=== PATIENT | female | born 1950 | race Caucasian/White ===

== ENCOUNTER 2022-05-22 16:30 | Emergency (ER) | payer OTHER, MEDICARE, SELFPAY ==
[2022-05-22 16:31] VITALS: BP 156/96; PULSE 86; RESP 16; TEMP 36.7; O2SAT 98; BMI 42.3
[2022-05-22 17:12] VITALS: BP 166/95; PULSE 82; RESP 18; O2SAT 100
--- NOTE | 2022-05-22 17:21 | CT_ITS ---
INDICATION: fall EXAMINATION: CT BRAIN - CT Head or Brain W/O Contrast Injection TECHNIQUE: Multiple axial images were obtained of the head without intravenous contrast. A radiation dose optimization technique was used for this scan. IV Contrast dosage and agent: None. RADIATION DOSAGE (If Supplied By Facility): CTDIvol = ( 44.99 ) mGy, DLP = ( 779.24 ) mGycm COMPARISON: None FINDINGS: HEMISPHERES: 1. The cerebral parenchyma, ventricular system, subarachnoid spaces have normal configuration and density. There is a normal gyral pattern. There is normal benítez/white differentiation. No midline shift.. 2. The hemispheric white matter has normal appearance. 3. No intraparenchymal mass, hemorrhage, or acute territorial infarct. CEREBELLUM - BRAINSTEM: The cerebellum, brainstem, basilar and suprasellar cisterns have normal appearance. No Chiari malformation. PITUITARY: Infundibulum and pituitary have normal configuration. Midline structures appear normal. CSF SPACES: Appropriate for age. No hydrocephalus. Basal cisterns are patent. VESSELS: 1. No significant vascular calcifications in the cavernous carotid vessels. 2. No hyperdense vascular signs noted.. ORBITS AND PARANASAL SINUSES: 1. Normal appearance of the bony orbits. Normal appearance of the globes and retrobulbar soft tissues.. 2. Paranasal sinuses are clear. BONY ELEMENTS: Bony elements of the cranial vault, facial skeleton and skull base have normal appearance. SCALP AND SOFT TISSUES: RIGHT posterior parietal scalp contusion. No underlying fracture. OTHER: None ASPECTS Score for Acute Strokes: 10 CT/Brain/Head without Contrast IMPRESSION: 1. No intracranial mass, hemorrhage or acute territorial infarct. 2. RIGHT posterior parietal scalp contusion, no underlying fracture or radiopaque foreign bodies. 3. No radiographically significant sinus disease.. Electronically Signed: Castillo Warner MD at 18:32 EDT ,
--- NOTE | 2022-05-22 17:21 | EKG12_ITS ---
Test Reason : Blood Pressure : / mmHG Vent. Rate : 075 BPM Atrial Rate : 075 BPM P-R Int : 182 ms QRS Dur : 086 ms QT Int : 376 ms P-R-T Axes : 024 000 005 degrees QTc Int : 419 ms Normal sinus rhythm Normal ECG Confirmed by RUPAL BRISENO, EBER ([id number]), digital editor REY CRAWLEY ([id number]) on 05/23/2022 1:27:06 PM Referred By: Confirmed By:EBER GOLDSMITH MD
[2022-05-22 17:34] LABS: Absolute Lymphocyte Count 1.68 X10^3/uL (0.83-4.51); Absolute Neutrophil Count 6.5 X10^3/uL (2.0-7.7); Basophil# 0.07 X10^3/uL; Basophil% 0.8 % (0-1); Eosinophils% 1.1 % (0-5); Hematocrit 40.6 % (37-47); Hemoglobin 12.7 g/dL (12.0-15.0); Lymphocyte # 1.68 X10^3/ul (0.83-4.51); Lymphocyte % 18.3 % (19-41); Mean Corp Hgb Conc 31.3 g/dL (32-36); Mean Corpuscular Hgb 29.1 pg (27.0-32.0); Mean Corpuscular Volume 92.9 fL (81-99); Mean Platelet Vol. 10.6 fl (6.2-12.0); Monocyte# 0.86 X10^3/uL; Monocyte% 9.4 % (0-10); NRBC Flagged by Analyzer 0 % (0-5); Neutrophil # 6.45 X10^3/uL (2.7-7.7); Neutrophil % 70.1 % (47-70); Platelet Count 296 K/mm3 (150-450); RBC Distribution Width CV 13.5 % (11.6-14.6); RBC Distribution Width SD 46.8 fl (35.1-43.9); Red Blood Count 4.37 M/mm3 (4.2-5.4); White Blood Count 9.2 K/mm3 (4.4-11.0)
[2022-05-22 17:35] VITALS: BP 149/79; BP 160/104; BP 174/98; PULSE 77; PULSE 80; PULSE 85
[2022-05-22 17:42] LABS: D-Dimer Quantitative (DVT/PE) 0.49 FEU/ug/m (0.27-0.49)
--- NOTE | 2022-05-22 17:44 | EDS_ITS ---
HPI History of Present Illness Chief Complaint: General Illness Informant: patient Narrative Narrative: Patient is a 71-year-old female with history of BPPV as well as COVID infection in the beginning of April presenting with intermittent falls, intermittent vertig o and request for evaluation. Patient notes that last week she returned her head in her pillow when sleeping and had some spinning. She fell asleep and then when she got up to go to the restroom in the middle the night she had vertigo which she describes as mild. Since then she has had a couple of intermittent episodes of room spinning sensation that always correlate with change in position. She notes that over the weekend she tripped while at [employer] and fell. She not hit her head. This morning she was try to pick something off the ground and when she tried to get up she lost her balance and fell backwards. Denies any loss of conscious but does think she hit her head. She denies any chest pain, shortness of breath or difficulty breathing. She notes her exercise tolerance and activity level has not returned to her pre-COVID state. She spoke with her primary care doctor who wanted her to come in to be evaluated and also make sure that she did not have a blood clot somewhere given her symptoms. Patient not taking anything for her vertigo and currently denies any symptoms. No other complaints at this time. Denies any history of DVT or PE. Denies any swelling of her legs. [facility] Medical History Cholecystectomy planned Vertigo Home Medications loratadine 10 mg DAILY 05/22/22 [History Last Taken Unknown] losartan 50 mg tablet 1 tab BID 05/22/22 [History Last Taken Unknown] meclizine 25 mg tablet 25 mg PO TID PRN dizziness #14 tabs 05/22/22 [Rx Last Taken Unknown] meloxicam 15 mg tablet 1 tab DAILY 05/22/22 [History Last Taken Unknown] omeprazole 40 mg capsule,delayed release 1 cap DAILY 05/22/22 [History Last Taken Unknown] Allergy/AdvReac Type Severity Reaction Status Date / Time adhesive tape Allergy Rash Verified 05/22/22 16:57 Surgical History History of hysterectomy Social History Smoking Status: Never smoker ROS ROS ED Constitutional Constitutional ED: Denies chills, fever(s) or sweats Eyes Eyes: Denies change in vision ENT ENT ED: Denies rhinorrhea Cardiovascular Cardiovascular: Denies chest pain or palpitations Respiratory/Chest Respiratory/Chest: Denies cough or dyspnea Gastrointestinal Gastrointestinal: Reports nausea; Denies abdominal pain or vomiting Genitourinary Genitourinary ED: Denies dysuria or hematuria Musculoskeletal Musculoskeletal: Denies arthralgias or myalgias Integumentary Denies rash Neurologic Neurologic: Reports other Details: dizziness, vertigo ; Denies headache(s), paresthesias or weakness Psychiatric Psychiatric: Denies anxiety EXAM Physical Exam Const Vital Signs: 05/22/22 16:31 05/22/22 16:52 05/22/22 17:12 Temperature 98.1 F Temperature Source Temporal Pulse Rate 86 82 Pulse Rate [Lying] Pulse Rate [Sitting (for 1 minute prior to obtaining)] Pulse Rate [Standing (for 1 minute prior to obtaining)] Respiratory Rate 16 18 Respiratory Effort Normal Non-Labored Respiratory Pattern Normal Blood Pressure 156/96 H 166/95 H Blood Pressure [Lying] Blood Pressure [Sitting (for 1 minute prior to obtaining)] Blood Pressure [Standing (for 1 minute prior to obtaining)] Blood Pressure Mean 116 118 Blood Pressure Mean [Lying] Blood Pressure Mean [Sitting (for 1 minute prior to obtaining)] Blood Pressure Mean [Standing (for 1 minute prior to obtaining)] Pulse Ox 98 100 Oxygen Delivery Method Room Air Room Air 05/22/22 17:35 05/22/22 19:21 Temperature Temperature Source Pulse Rate 77 Pulse Rate [Lying] 77 Pulse Rate [Sitting (for 1 minute prior to obtaining)] 80 Pulse Rate [Standing (for 1 minute prior to obtaining)] 85 Respiratory Rate 21 H Respiratory Effort Respiratory Pattern Blood Pressure 130/95 H Blood Pressure [Lying] 149/79 H Blood Pressure [Sitting (for 1 minute prior to obtaining)] 160/104 H Blood Pressure [Standing (for 1 minute prior to obtaining)] 174/98 H Blood Pressure Mean 106 Blood Pressure Mean [Lying] 102 Blood Pressure Mean [Sitting (for 1 minute prior to obtaining)] 122 Blood Pressure Mean [Standing (for 1 minute prior to obtaining)] 123 Pulse Ox 97 Oxygen Delivery Method Room Air Positive well nourished and well developed General Appearance ED: well developed and NAD HEENT Reports TM's clear and moist mucous membranes HEENT Narrative: No obvious cephalhematoma appreciated Negative for trauma or tenderness Tympanic Membrane ED: Yes TM's clear Eyes PERRL and EOMs intact bilaterally Eyes Narrative: No nystagmus. Negative Funmi-Hallpike maneuver bilateral Neck supple and no JVD Chest Wall inspection of chest normal Resp normal respiratory effort and clear to auscultation bilaterally Cardio regular rate, regular rhythm and no murmurs GI normal to inspection, nondistended, normoactive bowel sounds and non-tender Back/Spine no CVA tenderness Extremity normal to inspection General Extremety ED: Negative for edema or tenderness General Extremity: Negative for edema Neuro oriented x3, CN's II-XII intact bilaterally and no sensory deficits noted Neuro Narrative: Normal atildu-hr-xlds. Normal lwwj-[id number]. No truncal ataxia. Sensorium / Orientation: alert Motor Exam: strength 5/5 throughout Psych mental status grossly normal Skin no rashes or lesions noted and no wounds MDM MDM MDM Narrative Medical decision making narrative: Patient is evaluated for intermittent episodes of dizziness. Does have a history of peripheral vertigo. Had a fall today and did hit her head. It seems to be associated with losing her balance however CT of the brain is obtained which did show a small right posterior parietal scalp contusion but no associated fracture or intracranial process. I am not able to reproduce his symptoms in the ER. Orthostatics are normal. D-dimer is normal and patient is otherwise low risk for PE so I do not think a CT is indicated. High since he troponin is 10 and patient not having any chest pain. Her EKG is normal. I do not think this is ACS. Patient is given outpatient referral for ENT as well as meclizine to help with her symptoms. Given instructions on the Perico maneuver which she has done in the past. Counseled on return precautions. Patient discharged home in stable condition. Agreeable with this plan of care. Ambulates with a steady gait in the emergency room. Lab Data Attestation: I reviewed the patient's lab results. Labs: Laboratory Results - last 24 hr 05/22/22 05/22/22 05/22/22 17:15 17:15 17:15 WBC 9.2 RBC 4.37 Hgb 12.7 Hct 40.6 MCV 92.9 MCH 29.1 MCHC 31.3 L RDW Std Deviation 46.8 H RDW Coeff of Annmarie 13.5 Plt Count 296 MPV 10.6 Immature Gran % (Auto) 0.300 Neut % (Auto) 70.1 H Lymph % (Auto) 18.3 L [place] % (Auto) 9.4 Eos % (Auto) 1.1 Baso % (Auto) 0.8 Absolute Neuts (auto) 6.5 Absolute Lymphs (auto) 1.68 Nucleated RBC % 0 D-Dimer Quant (PE/DVT) 0.49 Sodium 140 Potassium 3.9 Chloride 108 H Carbon Dioxide 27.0 Anion Gap 5 BUN 16 Creatinine 0.69 Estim Creat Clear Calc 43.30 Est GFR (MDRD) Af Amer 108 Est GFR (MDRD) Non-Af 90 BUN/Creatinine Ratio 23.3 H Glucose 103 Calcium 9.1 Troponin I High Sens 10 Radiography Diagnostic Testing: Clinical Impression(s) from Imaging Studies Brain CT 05/22/22 17:21 IMPRESSION: 1. No intracranial mass, hemorrhage or acute territorial infarct. 2. RIGHT posterior parietal scalp contusion, no underlying fracture or radiopaque foreign bodies. 3. No radiographically significant sinus disease.. Electronically Signed: Castillo Warner MD at 18:32 EDT , Rhythm Strip Rhythm Strip: Sinus Rhythm Rate: 75 Ectopy: None EKG Initial EKG: Attestation: I personally reviewed and interpreted this EKG as follows: Interpretation: Sinus Rhythm Comments: Normal sinus rhythm at a rate of 75 Normal axis Normal intervals Normal ST segments Discharge Plan Triage Chief Complaint: General Illness ED Provider: Maura Hopson Dx/Rx/DC Orders Clinical Impression: Intermittent vertigo, Fall, Contusion of scalp Instructions: ED Head Injury (Adult), ED Vertigo, Unspecified Prescriptions: New meclizine 25 mg tablet 25 mg PO TID PRN (Reason: dizziness) Qty: 14 0RF No Action losartan 50 mg tablet 1 tab BID meloxicam 15 mg tablet 1 tab DAILY omeprazole 40 mg capsule,delayed release(DR/EC) 1 cap DAILY loratadine 10 mg DAILY Primary Care Provider: Michelle Blanco Referrals: Michelle Blanco MD [Primary Care Provider] - Cholo Perez MD [Med Staff - Active Staff] - 3-5 Days if not improving Disposition Disposition: Home, Self Care
[2022-05-22 18:38] LABS: Anion Gap 5 (5-15); BUN 16 mg/dL (7-18); BUN/Creat Ratio 23.3 RATIO (10-20); Calcium,Total 9.1 mg/dL (8.5-10.1); Chloride 108 mmol/L (98-107); Creatinine, Serum 0.69 mg/dL (0.55-1.02); EST Glomerular Filtration Rate 90 mL/min (>60); Est Glom Filt Rate - Afr Amer 108 mL/min (>60); Glucose 103 mg/dL (74-106); Potassium 3.9 mmol/L (3.5-5.1); Sodium Level 140 mmol/L (136-145); Troponin-I HS 10 pg/mL (3.0-54.0)
[2022-05-22 19:21] VITALS: BP 130/95; PULSE 77; RESP 21; O2SAT 97
[2022-05-22 19:46] VITALS: BP 130/95; PULSE 78; RESP 18; O2SAT 97
== END 2022-05-22 19:47 | disposition home or self-care (01) ==
PROVIDERS: Emergency Provider Emergency Medicine; PCP Internal Medicine; Visit Provider Emergency Medicine
DX: S00.03XA Contusion of scalp, initial encounter (principal); W01.0XXA Fall on same level from slipping, tripping and stumbling without subsequent striking against object, initial encounter; H81.10 Benign paroxysmal vertigo, unspecified ear; Z86.16 Personal history of COVID-19; R29.6 Repeated falls
CPT/HCPCS: 70450; 80048; 84484; 85025; 85379; 93005; 99284; A4216

== ENCOUNTER 2023-10-28 00:39 | Emergency (ER) | payer MEDICARE, SELFPAY ==
[2023-10-28 00:39] VITALS: BP 170/109; PULSE 84; RESP 16; TEMP 36.6; O2SAT 97; BMI 44.4
--- NOTE | 2023-10-28 01:00 | RAD_ITS ---
EXAM: XR RIGHT SHOULDER COMPLETE, 2 OR MORE VIEWS CLINICAL INDICATION: trauma TECHNIQUE: Two or more views of the right shoulder. COMPARISON: No relevant prior studies available. FINDINGS: BONES/JOINTS: Probable impacted fracture of the humeral head/neck, with extension through the greater tuberosity. Preservation of the joint space. No sclerotic or destructive changes observed. SOFT TISSUES: Unremarkable. No soft tissue swelling or gas. No radiopaque foreign body. RAD/Shoulder min 2 Views IMPRESSION: Probable impacted fracture of the humeral head/neck, with extension through the greater tuberosity. Electronically Signed: Merrill Rinaldi MD at 1:53 EST ,
--- OUTSIDE RECORDS SUMMARY | 2023-10-28 01:21 | XMS RPT_ITS | CCD ---
Author Name Unknown Address [address] [place] [address] Organization [facility] Care Team Providers Care Cash Posting Representative Name Role Phone MINH QUEEN Admitting Unavailable MINH QUEEN Attending Unavailable Francis BRISENO, Michelle Primary Care Provider Francis BRISENO, Michelle Primary Care Provider Michelle Garcia MD Primary Care Provider Francis BRISENO, Michelle Primary Care Provider SAMUELTA, MICHELLE Primary Care Unavailable OLDER, JOSSELIN Referring Unavailable GANTA, MICHELLE Primary Care Unavailable OLDER, JOSSELIN Referring Unavailable GANTA, MICHELLE Primary Care Unavailable GANTA, MICHELLE Referring Unavailable OLDER, JOSSELIN Referring Unavailable GANTA, MICHELLE Primary Care Unavailable GANTA, MICHELLE Primary Care Unavailable GOLIAS, GUNAAKITO Attending Unavailable OLDER, JOSSELIN Referring Unavailable GANTA, MICHELLE Primary Care Unavailable GOLIAS, GUANAKITO Attending Unavailable OLDER, JOSSELIN Referring Unavailable GANTA, MICHELLE Primary Care Unavailable OLDER, JOSSELIN Referring Unavailable GANTA, MICHELLE Primary Care Unavailable GOLIAS, GUANAKITO Attending Unavailable OLDER, JOSSELIN Referring Unavailable GANTA, MICHELLE Primary Care Unavailable OLDER, JOSSELIN Referring Unavailable GANTA, IMCHELLE Primary Care Unavailable GOLIAS, GUANAKITO Attending Unavailable OLDER, JOSSELIN Referring Unavailable GANTA, MICHELLE Primary Care Unavailable GOLIAS, GUANAKITO Attending Unavailable OLDER, JOSSELIN Referring Unavailable GOLIAS, GUANAKITO Attending Unavailable OLDER, JOSSELIN Referring Unavailable GANTA, MICHELLE Primary Care Unavailable GANTA, MICHELLE Primary Care Unavailable GOLIAS, GUANAKITO Attending Unavailable OLDER, JOSSELIN Referring Unavailable GANTA, MICHELLE Referring Unavailable GANTA, MICHELLE Attending Unavailable GANTA, MICHELLE Primary Care Unavailable GANTA, MICHELLE Referring Unavailable GANTA, MICHELLE Primary Care Unavailable OLDER, JOSSELIN Attending Unavailable GANTA, MICHELLE Primary Care Unavailable GANTA, MICHELLE Primary Care Unavailable FELICIANO JOSSELIN Attending Unavailable MICHELLE GARCIA Primary Care Unavailable OLDERJOSSELIN Attending Unavailable Allergies Allergy Classification Reported Allergen(s) Allergy Type Date of Onset Reaction(s) Facility (20 sources) amLODIPine; Translations: [AMLODIPINE BESYLATE] Drug Allergy 6 Intolerance [facility] Repository (20 sources) Angiotensin Converting Enzyme (Ced) Inhibitors; Translations: [CED INHIBITORS] Propensity to adverse reactions to drug (disorder) 8 Cough [facility] Repository (20 sources) POISON NAINA; Translations: [POISON NAINA] Propensity to adverse reactions (disorder) 5 Other: See Comments [facility] Repository (20 sources) Cat; Translations: [CATS] Allergy to substance 0 Other: See Comments [facility] (20 sources) House dust mite; Translations: [DUST MITES] Propensity to adverse reactions 1 Other: See Comments [facility] (20 sources) Tree and shrub pollen; Translations: [TREE AND SHRUB POLLEN] Propensity to adverse reactions to drug 1 Itching [facility] Medications Current Medications Medication Drug Class(es) Dates Sig (Normalized) Sig (Original) nirmatrelvir tablet 300 mg (150 mg x 2) and ritonavir tablet 100 mg in a dose pack (PAXLOVID) (1 source) Start: 05-16-2023 End: 05-21-2023 nirmatrelvir tablet 300 mg (150 mg x 2) and ritonavir tablet 100 mg in a dose pack (PAXLOVID) Administer TWO pink nirmatrelvir 150 mg tablets and ONE white ritonavir 100 mg tablet for a total of three tablets twice daily. 30 tablet 0 05/16/2023 05/21/2023 Active Completed/Discontinued Medications Medication Drug Class(es) Dates Sig (Normalized) Sig (Original) 8 hr acetaminophen 650 mg extended release oral tablet (10 sources) Start: 05-16-2023 take 1 tablet by mouth every eight hours as needed acetaminophen (TYLENOL ARTHRITIS PAIN) 650 mg CR tablet Take 1 tablet by mouth every 8 hours as needed. 0 05/16/2023 Active Problems Active Problems Problem Classification Problem Date Documented Date Episodic/Chronic Abdominal pain (2 sources) Pain in female pelvis; Translations: [Pelvic and perineal pain] Episodic Cataract (1 source) Bilateral senile combined form cataracts of eyes; Translations: [Combined forms of age-related cataract, bilateral] Chronic Disorders of lipid metabolism (5 sources) Hypertriglyceridemia; Translations: [Pure hyperglyceridemia] Onset: 06-26-2023 Chronic Esophageal disorders (20 sources) Gastroesophageal reflux disease without esophagitis; Translations: [Gastro-esophageal reflux disease without esophagitis] 03-10-2019 Chronic Essential hypertension (20 sources) Essential hypertension; Translations: [Essential (primary) hypertension] Onset: 09-01-2015 09-01-2015 Chronic Genitourinary symptoms and ill-defined conditions (2 sources) Urge incontinence of urine; Translations: [Urge incontinence] Chronic Genitourinary symptoms and ill-defined conditions (1 source) Urgent desire to urinate; Translations: [Urgency of urination] Episodic Headache; including migraine (1 source) Headache; Translations: [Headache, unspecified headache type] Episodic Menopausal disorders (3 sources) Atrophy of vagina; Translations: [Postmenopausal atrophic vaginitis] Chronic Nutritional deficiencies (2 sources) Vitamin D deficiency; Translations: [Vitamin D deficiency, unspecified] Onset: 12-06-2022 Chronic Osteoarthritis (20 sources) Localized, primary osteoarthritis; Translations: [Unilateral primary osteoarthritis, unspecified knee] Onset: 07-10-2009 07-10-2009 Chronic Osteoporosis (2 sources) Senile osteoporosis; Translations: [Age-related osteoporosis without current pathological fracture] Onset: 12-12-2022 Chronic Other and unspecified benign neoplasm (1 source) Personal history of colonic polyps; Translations: [Personal history of colonic polyps] Onset: 02-16-2019 Episodic Other bone disease and musculoskeletal deformities (20 sources) Disorder of skeletal system; Translations: [Disorder of bone, unspecified] 06-02-2008 Episodic Other bone disease and musculoskeletal deformities (1 source) Osteopenia; Translations: [Other specified disorders of bone density and structure, unspecified site] Episodic Other female genital disorders (4 sources) Atrophic vulva; Translations: [Atrophy of vulva] Episodic Other inflammatory condition of skin (2 sources) Lichen planus; Translations: [Lichen planus, unspecified] 04-28-2023 Episodic Other nervous system disorders (1 source) Other chronic pain; Translations: [Chronic pain of both knees] Onset: 06-26-2023 Chronic Other nervous system disorders (14 sources) Impairment of balance; Translations: [Other abnormalities of gait and mobility] Onset: 07-15-2023 06-26-2023 Episodic Other nutritional; endocrine; and metabolic disorders (20 sources) Body mass index 40+ - severely obese; Translations: [Body mass index (BMI) 40.0-44.9, adult] Onset: 08-02-2013 08-02-2013 Chronic Other nutritional; endocrine; and metabolic disorders (1 source) Body mass index (BMI) 40.0-44.9, adult; Translations: [BMI 40.0-44.9, adult ([facility])] Onset: 08-02-2013 Chronic Other skin disorders (1 source) Epidermoid cyst; Translations: [Epidermal cyst] Episodic Other upper respiratory disease (20 sources) Allergic rhinitis; Translations: [Allergic rhinitis, unspecified] 09-24-2006 Chronic Prolapse of female genital organs (1 source) Midline cystocele; Translations: [Cystocele, midline] Chronic Viral infection (1 source) Disease caused by 2019-nCoV; Translations: [COVID-19] 05-16-2023 Episodic Viral infection (1 source) COVID-19; Translations: [COVID] Onset: 05-16-2023 Past or Other Problems Problem Classification Problem Date Documented Date Episodic/Chronic Abdominal hernia (20 sources) Hiatal hernia; Translations: [Diaphragmatic hernia without obstruction or gangrene] Onset: 11-19-2019 11-19-2019 Episodic Blindness and vision defects (20 sources) Bilateral myopia of eyes; Translations: [Myopia, bilateral] Onset: 02-01-2019 02-01-2019 Episodic Deficiency and other anemia (20 sources) Iron deficiency anemia; Translations: [Iron deficiency anemia, unspecified] Onset: 09-15-2007 02-10-2019 Episodic Diabetes mellitus without complication (20 sources) Impaired glucose tolerance; Translations: [Impaired glucose tolerance (oral)] Onset: 08-06-2016 08-06-2016 Episodic Gastritis and duodenitis (20 sources) Acute gastritis; Translations: [Acute gastritis without bleeding] Onset: 10-12-2007 10-12-2007 Episodic Noninfectious gastroenteritis (20 sources) Chronic diarrhea; Translations: [Noninfective gastroenteritis and colitis, unspecified] Onset: 03-09-2013 07-02-2023 Episodic Other and unspecified benign neoplasm (20 sources) Tubular adenoma of colon; Translations: [Benign neoplasm of colon, unspecified] Onset: 01-13-2013 10-15-2021 Episodic Other bone disease and musculoskeletal deformities (1 source) Other specified disorders of bone density and structure, unspecified site; Translations: [Osteopenia, unspecified location] Onset: 12-06-2022 Episodic Other connective tissue disease (20 sources) Impingement syndrome of right shoulder region; Translations: [Impingement syndrome of right shoulder] Onset: 02-13-2018 02-13-2018 Episodic Other nervous system disorders (1 source) Other abnormalities of gait and mobility; Translations: [Balance problem] Onset: 06-26-2023 Episodic Other non-traumatic joint disorders (20 sources) Shoulder joint pain; Translations: [Pain in unspecified shoulder] Onset: 12-23-2013 12-23-2013 Episodic Other non-traumatic joint disorders (15 sources) Pain in right knee; Translations: [Pain in joint, lower leg] Onset: 06-26-2023 07-02-2023 Episodic Other non-traumatic joint disorders (1 source) Pain in left knee; Translations: [Chronic pain of both knees] Onset: 06-26-2023 Episodic Other screening for suspected conditions (not mental disorders or infectious disease) (6 sources) Patient encounter status; Translations: [Encounter for screening mammogram for malignant neoplasm of breast] Onset: 12-06-2022 Episodic Residual codes; unclassified (20 sources) Insomnia; Translations: [Insomnia, unspecified] Onset: 11-19-2019 11-19-2019 Episodic Screening and history of mental health and substance abuse codes (1 source) Encounter for screening for depression; Translations: [Depression screening] Onset: 12-12-2022 Episodic Results Test Name Value Interpretation Reference Range Facil ity Vital Signs Date Time Vital Sign Value Performing Clinician Fred orourke 09-25-2023 13:42-0500 Diastolic blood pressure 79 mm[Hg] Josselin Stevens APRN.CNP Work Phone: [facility] 09-25-2023 13:42-0500 Systolic blood pressure 116 mm[Hg] Josselin Stevens APRN.CNP Work Phone: [facility] 09-25-2023 13:09-0500 Body weight 107.96 kg Josselin Older HYDROELECTRIC MECHANIC.SURGICAL ELASTIC KNITTER Work Phone: [facility] 09-25-2023 13:09-0500 Heart rate 102 /min Josselin Older HYDROELECTRIC MECHANIC.SURGICAL ELASTIC KNITTER Work Phone: [facility] 09-25-2023 13:09-0500 Respiratory rate 16 /min Josselin Older HYDROELECTRIC MECHANIC.SURGICAL ELASTIC KNITTER Work Phone: [facility] 09-25-2023 13:09-0500 SaO2% (BldA) [Mass fraction] 97 % Josselin Older HYDROELECTRIC MECHANIC.SURGICAL ELASTIC KNITTER Work Phone: [facility] 06-26-2023 11:33-0400 Diastolic blood pressure 81 mm[Hg] Josselin Older HYDROELECTRIC MECHANIC.SURGICAL ELASTIC KNITTER Work Phone: [facility] 06-26-2023 11:33-0400 Systolic blood pressure 123 mm[Hg] Josselin Older HYDROELECTRIC MECHANIC.SURGICAL ELASTIC KNITTER Work Phone: [facility] 06-26-2023 10:46-0400 Body weight 106.14 kg Josselin Older HYDROELECTRIC MECHANIC.SURGICAL ELASTIC KNITTER Work Phone: [facility] 06-26-2023 10:46-0400 Heart rate 102 /min Josselin Older HYDROELECTRIC MECHANIC.SURGICAL ELASTIC KNITTER Work Phone: [facility] 06-26-2023 10:46-0400 Respiratory rate 16 /min Josselin Older HYDROELECTRIC MECHANIC.SURGICAL ELASTIC KNITTER Work Phone: [facility] 06-26-2023 10:46-0400 SaO2% (BldA) [Mass fraction] 97 % Josselin Older HYDROELECTRIC MECHANIC.SURGICAL ELASTIC KNITTER Work Phone: [facility] 12-12-2022 11:49-0500 Diastolic blood pressure 87 mm[Hg] Michelle Garcia MD Work Phone: [facility] 12-12-2022 11:49-0500 Heart rate 80 /min Michelle Garcia MD Work Phone: [facility] 12-12-2022 11:49-0500 Systolic blood pressure 127 mm[Hg] Michelle Garcia MD Work Phone: [facility] 12-12-2022 11:24-0500 Body weight 106.14 kg Michelle Garcia MD Work Phone: [facility] 12-12-2022 11:24-0500 Respiratory rate 16 /min Michelle Garcia MD Work Phone: [facility] 12-12-2022 11:24-0500 SaO2% (BldA) [Mass fraction] 98 % Michelle Garcia MD Work Phone: [facility] 07-23-2022 11:28-0400 Diastolic blood pressure 76 mm[Hg] Michelle Garcia MD Work Phone: [facility] 07-23-2022 11:28-0400 Systolic blood pressure 126 mm[Hg] Michelle Garcia MD Work Phone: [facility] 07-23-2022 10:40-0400 Body height 160 cm Michelle Garcia MD Work Phone: [facility] 07-23-2022 10:40-0400 Body temperature 97.5 [degF] Michelle Garcia MD Work Phone: [facility] 07-23-2022 10:40-0400 Body weight 103.87 kg Michelle Garcia MD Work Phone: [facility] 07-23-2022 10:40-0400 Heart rate 95 /min Michelle Garcia MD Work Phone: [facility] 07-23-2022 10:40-0400 Respiratory rate 18 /min Michelle Garcia MD Work Phone: [facility] 07-23-2022 10:40-0400 SaO2% (BldA) [Mass fraction] 99 % Michelle Garcia MD Work Phone: [facility] 04-10-2022 16:09-0400 Body height 160 cm Michelle Garcia MD Work Phone: [facility] 04-10-2022 16:09-0400 Body temperature 97.2 [degF] Michelle Garcia MD Work Phone: [facility] 04-10-2022 16:09-0400 Body weight 107.5 kg Michelle Garcia MD Work Phone: [facility] 04-10-2022 16:09-0400 Diastolic blood pressure 72 mm[Hg] Michelle Garcia MD Work Phone: [facility] 04-10-2022 16:09-0400 Heart rate 89 /min Michelle Garcia MD Work Phone: [facility] 04-10-2022 16:09-0400 Respiratory rate 14 /min Michelle Garcia MD Work Phone: [facility] 04-10-2022 16:09-0400 SaO2% (BldA) [Mass fraction] 97 % Michelle Garcia MD Work Phone: [facility] 04-10-2022 16:09-0400 Systolic blood pressure 136 mm[Hg] Michelle Garcia MD Work Phone: [facility] 03-30-2022 11:50-0400 Body temperature 98.6 [degF] Martina Tannhof HYDROELECTRIC MECHANIC.SURGICAL ELASTIC KNITTER Work Phone: [facility] 03-30-2022 11:50-0400 Body weight 108.86 kg Martina Nichohof HYDROELECTRIC MECHANIC.SURGICAL ELASTIC KNITTER Work Phone: [facility] 03-30-2022 11:50-0400 Diastolic blood pressure 90 mm[Hg] Martina Tannhof HYDROELECTRIC MECHANIC.SURGICAL ELASTIC KNITTER Work Phone: [facility] 03-30-2022 11:50-0400 Heart rate 83 /min Martina Tannhof HYDROELECTRIC MECHANIC.SURGICAL ELASTIC KNITTER Work Phone: [facility] 03-30-2022 11:50-0400 SaO2% (BldA) [Mass fraction] 98 % Martina Tannhof HYDROELECTRIC MECHANIC.SURGICAL ELASTIC KNITTER Work Phone: [facility] 03-30-2022 11:50-0400 Systolic blood pressure 168 mm[Hg] Martina Tannhof HYDROELECTRIC MECHANIC.SURGICAL ELASTIC KNITTER Work Phone: [facility] 02-08-2022 13:46-0400 Body weight 109.32 kg Mira Joseph MD Work Phone: [facility] 02-08-2022 13:46-0400 Diastolic blood pressure 90 mm[Hg] Mira Joseph MD Work Phone: [facility] 02-08-2022 13:46-0400 Systolic blood pressure 138 mm[Hg] Mira Joseph MD Work Phone: [facility] 01-21-2022 11:09-0400 Body weight 108.5 kg Mira Joseph MD Work Phone: [facility] 01-21-2022 11:09-0400 Diastolic blood pressure 90 mm[Hg] Mira Joseph MD Work Phone: [facility] 01-21-2022 11:09-0400 Systolic blood pressure 120 mm[Hg] Mira Joseph MD Work Phone: [facility] Encounters Encounter Date Encounter Type Care Provider Facility Start: 09-25-2023 End: 09-25-2023 ambulatory JOSSELIN OLDER Facility:[facility] Start: 09-25-2023 End: 09-25-2023 Patient encounter procedure Josselin Stevens APRN.CNP Work Phone: [facility] [place] Procedures Date Procedure Procedure Detail Performing Clinician Start: 06-24-2023 Lipid 1996 panel - S yesica or Plasma Josselin Stevens HYDROELECTRIC MECHANIC.SURGICAL ELASTIC KNITTER Work Phone: Start: 04-14-2023 Mammography Mammograph y Coordinator Start: 02-21-2022 Colonoscopy Mira marquez MD Work Phone: Start: 02-08-2022 Us transvaginal Mira otto MD Work Phone: Start: 01-21-2022 Urnls dip stick/tabl et reagent auto microscopy Mira Joseph MD Work Phone: Start: 03-01-2021 Adult depression scr eening assessment Michelle Garcia MD Work Phone: Start: 02-19-2021 Mammography Michelle nicole MD Work Phone: Start: 12-31-2012 Colonoscopy Michelle niocle MD Work Phone: Plan of Treatment Date Care Activity Detail Author Start: 02-22-2032 Colonoscopy COLONOSCOPY [facility] Start: 02-22-2032 COLORECTAL CANCER SCREENING COLORECTAL CANCER SCREENING [facility] Start: 06-24-2028 Lipid 1996 panel - Serum or Plasma Lipid Screening [facility] Start: 12-06-2027 LIPID SCREEN LIPID SCREEN [facility] Start: 06-24-2026 Diabetes Screening Diabetes Screening [facility] Start: 03-01-2026 LIPID SCREEN LIPID SCREEN [facility] Start: 12-06-2025 DIABETES SCREEN DIABETES SCREEN [facility] Start: 01-14-2025 DIABETES SCREEN DIABETES SCREEN [facility] Start: 09-26-2024 Urine microalbumin profile [facility] Start: 09-25-2024 Annual PCP Team Chronic Disease Visit Annual PCP Team Chronic Disease Visit [facility] Start: 09-25-2024 BP Controlled (<130/80) BP Controlled (<130/80) [facility] Start: 06-26-2024 Annual PCP Team Chronic Disease Visit Annual PCP Team Chronic Disease Visit [facility] Start: 05-16-2024 ANNUAL PCP TEAM CHRONIC DISEASE VISIT ANNUAL PCP TEAM CHRONIC DISEASE VISIT [facility] Start: 04-14-2024 Mammography [facility] Start: 03-20-2024 End: 06-19-2024 CBC panel - Blood by Automated count CBC Lab Routine Essential hypertension Expected: 03/20/2024 (Approximate), Expires: 06/19/2024 [facility] Work Phone: Immunizations Immunization Date Immunization Notes Care Provider Rosas garay 09-16-2022 influenza, high dose seasonal, preservative-free Josselin Stevens HYDROELECTRIC MECHANIC.SURGICAL ELASTIC KNITTER Work Phone: [facility] 09-16-2022 influenza virus vacc ine, unspecified formulation Josselin Stevens HYDROELECTRIC MECHANIC.SURGICAL ELASTIC KNITTER Work Phone: [facility] 03-14-2022 COVID-19 original vaccine, full dose, monovalent (MODERNA) Michelle Garcia MD Work Phone: [facility] 03-12-2022 COVID-19 vaccine, ag e 12+ yr ([employer] - BE[employer]VIDE[employer] TOP) Mira Joseph MD Work Phone: [facility] Work Phone: 09-07-2021 COVID-19 vaccine, fu ll dose (MODERNA) Martina Gonzales APRN.CNP Work Phone: [facility] 05-24-2021 zoster vaccine recombinant Michelle Garcia MD Work Phone: [facility] 03-09-2021 zoster vaccine recombinant Michelle Garcia MD Work Phone: [facility] 07-21-2018 influenza, high dose seasonal, preservative-free Michelle Garcia MD Work Phone: [facility] Work Phone: 01-16-2018 pneumococcal polysaccharide vaccine, 23 valent Michelle Garcia MD Work Phone: [facility] 07-14-2017 pneumococcal conjuga te vaccine, 13 valent Michelle Garcia MD Work Phone: [facility] 09-26-2014 tetanus toxoid, redu liam diphtheria toxoid, and acellular pertussis vaccine, adsorbed Michelle Garcia MD Work Phone: [facility] 12-16-2012 zoster vaccine, live Michelle Garcia MD Work Phone: [facility] Payers Date Payer Category Payer Medicare UHC MEDICARE UHC MEDICARE ADVANTAGE PPO [id number] 2020-Present [phone] [address] [address] [place] [address] PPO [id number] 2020 Medicare UHC MEDICARE UHC MEDICARE ADVANTAGE PPO [id number] 2020-Present [phone] [address] [address] [place] [address] PPO [id number] 2020 Medicare [id number] 2016 Unknown [id number] Social History Date Type Detail Facility Start: 07-23-2022 Tobacco smoking status NHIS Never smoked tobacco [facility] Start: 07-17-2021 End: 12-12-2022 Alcohol intake Current non-drinker of alcohol (finding) [facility] Start: 03-01-2021 End: 12-06-2022 History SDOH Alcohol Frequency 2 [facility] Start: 03-01-2021 End: 12-06-2022 History SDOH Alcohol Std Drinks 1 [facility] Start: 03-01-2021 End: 12-06-2022 History SDOH Social Connections Phone 5 [facility] Start: 03-01-2021 End: 12-06-2022 History SDOH Social Connections Get Together 3 [facility] Start: 11-16-2019 Education 19 [facility] Start: 1950 Sex Assigned At Not on file [facility] Start: 01-06-2022 End: 07-23-2022 Exposure to SARS-CoV-2 (event) Not sure [facility] Work Phone: Start: 04-10-2022 End: 12-06-2022 History SDOH Social Connections Get Together 4 [facility] Start: 1950 Sex Assigned At Female [facility] Start: 07-23-2022 Tobacco use and exposure Smokeless tobacco non-user [facility] Work Phone: Start: 12-06-2022 End: 05-16-2023 History of Social function [facility] Start: 12-06-2022 End: 05-16-2023 Social connection and isolation panel [facility] Do you belong to any clubs or organizations such as islam groups, unions, fraternal or athletic groups, or school groups? Yes [facility] Are you now , , , , never or living with a partner? [facility] How often to you hav e a drink containing alcohol? Monthly or less [facility] How many standard dr inks containing alcohol do you have on a typical day? 1 or 2 [facility] How often do you hav e 6 or more drinks on 1 occasion? Never [facility] How hard is it for y ou to pay for the very basics like food, housing, medical care, and heating Not hard at all [facility] Do you feel stress - tense, restless, nervous, or anxious, or unable to sleep at night because your mind is troubled all the time - these days [OSQ] Only a little [facility] (I/We) worried wheth er (my/our) food would run out before (I/we) got money to buy more. Never true [facility] In the past 12 month s, was there a time when you were not able to pay the mortgage or rent on time? No [facility] Start: 04-10-2022 Gender identity Identifies as female gender (finding) [facility] Start: 03-01-2021 Sexual orientation Heterosexual (finding) [facility] Clinical Notes 03-09-2013 to 09-25-2023 Josselin Stevens APRN.SURGICAL ELASTIC KNITTER - 09/25/2023 1:13 PM Guanakito Lopez, PT - 09/05/2023 4:24 PM Guanakito Lopez, PT - 09/02/2023 3:30 PM Guanakito Lopez, PT - 09/02/2023 2:50 PM ESTPatient Instructions Note Date & Type Note Facility 09-25-2023 Note HNO ID: [id number] Author: Josselin Stevens APRN.SURGICAL ELASTIC KNITTER Service: ? Author Type: Nurse Practitioner Type: Progress Notes Filed: 09/25/2023 3:37 PM Note Text: CC: Patient presents with: Recheck: 3 month follow up HPI Jessica Merrill is a 72 year old female who presents today for routine follow up. HTN and HLD: Ms. Merrill indicates that she is feeling well and denies any symptoms referable to elevated blood pressure. Specifically denies headache, chest pain, palpitations, dyspnea, and peripheral edema. Patient denies any side effects of her medication(s) and is compliant with their regimen. She does not check BP's generally. [facility] and does home therapy exercises. She watches her diet for sodium, low fat and low cholesterol most of the time. Has been gaining weight but this feels it is from building muscle with working out. Last 3 Encounter BP Readings: Date: BP: 09/25/2023 138/90 - 116/79 07/15/2023 130/91 06/26/2023 123/81[BP Cece[ REVIEW OF SYSTEMS See HPI PAST MEDICAL HISTORY Diagnosis Date Acute gastritis without mention of hemorrhage Allergic rhinitis, cause unspecified BMI 40.0-44.9, adult ([facility]) 08/02/2013 Cataract Corneal abrasion 20 y ago Depressive disorder, not elsewhere classified Diverticulosis of colon (without mention of hemorrhage) Elevated BP 08/04/15 Esophageal reflux Iron deficiency anemia, unspecified Ocular migraine Osteopenia PMH - PAST MEDICAL HISTORY OF schatski ring PAST SURGICAL HISTORY Procedure Laterality Date COLONOSCOPY FLX DX W/COLLJ SPEC WHEN PFRMD 10/12/07 DILATION AND CURETTAGE DXAND/THER NONOBSTETRIC 12/18/1985 Dilation AND curettage EGD TRANSORAL BIOPSY SINGLE/MULTIPLE 10/12/07 LAPAROSCOPY SURG CHOLECYSTECTOMY 03/30/2013 SUTURE QUADRICEPS/HAMSTRING RUPTURE PRIMARY 08/09/2010 REPAIR QUADRICEPS performed by EVELINA CARVER at OR TONSILLECTOMY AND ADENOIDECTOMY AGE 13/> T/A (over age 13 years) TOTAL ABDOMINAL HYSTERECT W/WO RMVL TUBE OVARY 10/20/2002 Hysterectomy, BTEO left ovaries ALLERGIES Ced Inhibitors, Cats, Norvasc [Amlodipine Besylate], Poison Naina, Dust Mites, and Tree And Shrub Pollen MEDICATIONS meloxicam (MOBIC) 15 mg tablet Take 1 tablet by mouth once daily. losartan (COZAAR) 50 mg tablet TAKE 1 TABLET BY MOUTH TWICE DAILY loperamide HCl (IMODIUM) 2 mg tab Take 1 tablet by mouth as needed. acetaminophen (TYLENOL ARTHRITIS PAIN) 650 mg CR tablet Take 1 tablet by mouth every 8 hours as needed. clobetasol (TEMOVATE) 0.05 % ointment Apply half of one [id number] to cover the affected area two days a week. omeprazole (PRILOSEC) 40 mg capsule TAKE 1 CAPSULE BY MOUTH ONCE DAILY estradiol (ESTRACE) 0.01 % (0.1 mg/gram) vaginal cream APPLY 1 GRAM OF CREAM TO LOWER VAGINA AND A PEA SIZED AMOUNT TO THE OPENING OF THE VAGINA 3 TIMES WEEKLY zolpidem (AMBIEN) 10 mg Use half to one tablet as needed. Ferrous Gluconate 225 mg (27 mg iron) tab Take 1 tablet by mouth once daily. MAGNESIUM ORAL Take by mouth. multivitamin with minerals (HAIR,SKIN AND NAILS ORAL) Take by mouth. calcium carbonate-vitamin D3 (OSCAL+D) 500 mg-10 mcg (400 unit) chewable tablet Take 1 tablet by mouth twice daily. Cholecalciferol, Vitamin D3, 50 mcg (2,000 unit) cap Take 1 capsule by mouth once daily. COMPOUNDED PRESCRIPTION Exercise 30 minutes daily 5 days weekly multivitamin tablet Take 1 tablet by mouth twice daily. loratadine(CLARITIN 10 MG TAB) Take one(1) tablet daily as needed for allergy symptoms. FAMILY HISTORY Problem Relation Age of Onset Heart Father thyroid cancer at age 39 other (Rheumatoid arthritis) Mother other (rheumatoid arthritis) Maternal Aunt other (rheumatoid arthritis) Maternal Aunt Social History Tobacco Use Smoking status: Never Smokeless tobacco: Never Vaping Use Vaping Use: Never used Substance Use Topics Alcohol use: No Drug use: No PHYSICAL EXAM BP 116/79 Pulse 102 Resp 16 Wt 108 kg (238 lb) SpO2 97% BMI 42.16 kg/m? General Appearance: well appearing, in no acute distress, alert Skin: Skin color, texture, turgor normal for age; Eyes: conjunctiva pink and moist, no icterus, sclera white, non-injected Lungs: Lungs clear to auscultation. No wheezing, rhonchi, rales. Heart: RRR without murmur, gallop, or rubs. No ectopy Health maintenance reviewed with patient: BP Controlled (<130/80) Never done RSV Vaccine(1 - 1-dose 60+ series) Never done Advance Directive Discussion due on 10/20/2022 Mammogram Screening due on 04/14/2024 Annual PCP Team Chronic Disease Visit due on 06/26/2024 DTaP,Tdap,Td Vaccine(2 - Td or Tdap) due on 09/26/2024 Diabetes Screening due on 06/24/2026 Lipid Screening due on 06/24/2028 Colorectal Cancer Screening due on 02/22/2032 Bone Density Screening Completed Influenza Vaccine Completed Depression Assessment Completed Hepatitis C Screening Completed Shingrix Vaccine Comple (more content not included)... [facility] 09-25-2023 History of Present illness Narrative CC: Patient presents with: Recheck: 3 month follow up HPI Jessica Merrill is a 72 year old female who presents today for routine follow up. HTN and HLD: Ms. Merrill indicates that she is feeling well and denies any symptoms referable to elevated blood pressure. Specifically denies headache, chest pain, palpitations, dyspnea, and peripheral edema. Patient denies any side effects of her medication(s) and is compliant with their regimen. She does not check BP's generally. [facility] and does home therapy exercises. She watches her diet for sodium, low fat and low cholesterol most of the time. Has been gaining weight but this feels it is from building muscle with working out. Last 3 Encounter BP Readings: Date: BP: 09/25/2023 138/90 - 116/79 07/15/2023 130/91 06/26/2023 123/81[BP Cece[ REVIEW OF SYSTEMS See HPI PAST MEDICAL HISTORY Diagnosis Date Acute gastritis without mention of hemorrhage Allergic rhinitis, cause unspecified BMI 40.0-44.9, adult ([facility]) 08/02/2013 Cataract Corneal abrasion 20 y ago Depressive disorder, not elsewhere classified Diverticulosis of colon (without mention of hemorrhage) Elevated BP 08/04/15 Esophageal reflux Iron deficiency anemia, unspecified Ocular migraine Osteopenia PMH - PAST MEDICAL HISTORY OF sch[place]ki ring PAST SURGICAL HISTORY Procedure Laterality Date COLONOSCOPY FLX DX W/COLLJ SPEC WHEN PFRMD 10/12/07 DILATION & CURETTAGE DX&/THER NONOBSTETRIC 12/18/1985 Dilation & curettage EGD TRANSORAL BIOPSY SINGLE/MULTIPLE 10/12/07 LAPAROSCOPY SURG CHOLECYSTECTOMY 03/30/2013 SUTURE QUADRICEPS/HAMSTRING RUPTURE PRIMARY 08/09/2010 REPAIR QUADRICEPS performed by EVELINA CARVER at OR TONSILLECTOMY & ADENOIDECTOMY AGE 13/> T/A (over age 13 years) TOTAL ABDOMINAL HYSTERECT W/WO RMVL TUBE OVARY 10/20/2002 Hysterectomy, BETO left ovaries ALLERGIES Ced Inhibitors, Cats, Norvasc [Amlodipine Besylate], Poison Naina, Dust Mites, and Tree And Shrub Pollen MEDICATIONS meloxicam (MOBIC) 15 mg tablet Take 1 tablet by mouth once daily. losartan (COZAAR) 50 mg tablet TAKE 1 TABLET BY MOUTH TWICE DAILY loperamide HCl (IMODIUM) 2 mg tab Take 1 tablet by mouth as needed. acetaminophen (TYLENOL ARTHRITIS PAIN) 650 mg CR tablet Take 1 tablet by mouth every 8 hours as needed. clobetasol (TEMOVATE) 0.05 % ointment Apply half of one [id number]-[id number] to cover the affected area two days a week. omeprazole (PRILOSEC) 40 mg capsule TAKE 1 CAPSULE BY MOUTH ONCE DAILY estradiol (ESTRACE) 0.01 % (0.1 mg/gram) vaginal cream APPLY 1 GRAM OF CREAM TO LOWER VAGINA AND A PEA SIZED AMOUNT TO THE OPENING OF THE VAGINA 3 TIMES WEEKLY zolpidem (AMBIEN) 10 mg Use half to one tablet as needed. Ferrous Gluconate 225 mg (27 mg iron) tab Take 1 tablet by mouth once daily. MAGNESIUM ORAL Take by mouth. multivitamin with minerals (HAIR,SKIN AND NAILS ORAL) Take by mouth. calcium carbonate-vitamin D3 (OSCAL+D) 500 mg-10 mcg (400 unit) chewable tablet Take 1 tablet by mouth twice daily. Cholecalciferol, Vitamin D3, 50 mcg (2,000 unit) cap Take 1 capsule by mouth once daily. COMPOUNDED PRESCRIPTION Exercise 30 minutes daily 5 days weekly multivitamin tablet Take 1 tablet by mouth twice daily. loratadine(CLARITIN 10 MG TAB) Take one(1) tablet daily as needed for allergy symptoms. FAMILY HISTORY Problem Relation Age of Onset Heart Father thyroid cancer at age 39 other (Rheumatoid arthritis) Mother other (rheumatoid arthritis) Maternal Aunt other (rheumatoid arthritis) Maternal Aunt Social History Tobacco Use Smoking status: Never Smokeless tobacco: Never Vaping Use Vaping Use: Never used Substance Use Topics Alcohol use: No Drug use: No PHYSICAL EXAM BP 116/79 Pulse 102 Resp 16 Wt 108 kg (238 lb) SpO2 97% BMI 42.16 kg/m General Appearance: well appearing, in no acute distress, alert Skin: Skin color, texture, turgor normal for age; Eyes: conjunctiva pink and moist, no icterus, sclera white, non-injected Lungs: Lungs clear to auscultation. No wheezing, rhonchi, rales. Heart: RRR without murmur, gallop, or rubs. No ectopy Health maintenance reviewed with patient: BP Controlled (<130/80) Never done RSV Vaccine(1 - 1-dose 60+ series) Never done Advance Directive Discussion due on 10/20/2022 Mammogram Screening due on 04/14/2024 Annual PCP Team Chronic Disease Visit due on 06/26/2024 DTaP,Tdap,Td Vaccine(2 - Td or Tdap) due on 09/26/2024 Diabetes Screening due on 06/24/2026 Lipid Screening due on 06/24/2028 Colorectal Cancer Screening due on 02/22/2032 Bone Density Screening Completed Influenza Vaccine Completed Depression Assessment Completed Hepatitis C Screening Completed Shingrix Vaccine Completed Covid-19 Vaccine Completed Pneumococcal Vaccine: 65+ Completed DATA REVIEWED: No new labs ASSESSMENT/PLAN: 1. Essential hypertension - ICD9: 401.9, ICD10: I10 (primary diagnosis) - Controlled - Continue current medications - Recommend home blood pressure monitoring, to bring results to next visit - Encouraged sodium restriction, DASH or Mediterranean diet - Recommend regular aerobic exercise - CBC - COMP METABOLIC PANEL 2. Hypertriglyceridemia - ICD9: 272.1, ICD10: E78.1 - Control undetermined, due for labs - Counseled on healthy diet and regular exercise - Discussed need for and benefit of weight loss. BMI 42.16 kg/(m^2) - COMP METABOLIC PANEL - LIPID PANEL BASIC Prescription instructions reviewed with patient as applicable. Potential red flag symptoms discussed with the patient. Reviewed appropriate action plan to take if red flag symptoms occur. Patient agreeable to treatment plan. Josselin Stevens APRN.CNP documented in this encounter [facility] 09-05-2023 Note HNO ID: [id number] Author: Guanakito Reyna PT Service: ? Author Type: Physical Therapist Type: Progress Notes Filed: 09/05/2023 4:26 PM Note Text: Episode Visit Count: 9 Therapist That Will Accept/Oversee The Plan Of Care: Guanakito Reyna PT Start of Care Date: 07/15/23 Onset Date: 03/24/23 Plan of Care Certification Date: 08/12/23 Next Certification Due Date: 09/09/23 Patient Identified by Name and Date of : Yes REHABILITATION AND SPORTS THERAPY PHYSICAL THERAPY DISCONTINUANCE OF CARE PLAN OF CARE UPDATE: Assessment: Jessica Merrill is discontinued from Physical Therapy services due to goal achievement and maximal benefit. and Patient/Clinician mutual decision to discontinue current plan of care.. Patient was seen for 9 visits from Start of Care Date: 07/15/23 to 09/05/2023 and treatment included: Therapeutic exercise, Neuromuscular re-education, Self-fci management, Patient/Family/Caregiver Education, Body mechanics training, Functional training, and General conditioning. Updated: 08/12/23 and 09/05/23 Goals for Episode of Care: created on 07/15/23 through 08/26/23 Glenn in home exercise program. - MET Patient will decrease pain rating by 2 points to meet minimal clinical important difference for numeric pain rating scale. - MET Patient will increase active ROM of B knees to WFL, symmetrical and pain-free to allow pt to to improve performance of ADLs, to improve gait mechanics / gait pattern , and to decrease falls risks . - Mostly MET Perform rising, walking, stairs and exercising with decreased report of symptoms/pain in 6 weeks. - MET Increased strength of B LEs and trunk to WFL and symmetrical with dynamometer for improved stability during all functional mobility. - MET Patient will ascend and descend flight of stairs independently with safe technique demonstrating step over step pattern. - Partially MET Patient will report no falls. - MET Improve performance on 4 Stage Balance Test to 10 second tandem and SLS at age and gender norms to reflect decreased fall risk. - Partially MET Patient Goals: decrease pain and stay active - MET SUBJECTIVE: Pt reports that overall she is much improved. She reports that the biggest improvement has been that she can now trim her toe nails without difficulty. She also reports improved ability to squat down to bathtub drain. She reports compliance with HEP and she plans to continue. She feels that she is walking better now. She reports that rising, stairs and exercising are all better. She reports that she is capable of negotating stairs step over step. She denies any falls. She feels confident that she can self-manage. Pain: Pain Pain Level: 0 Pain Location: Knee - Left, Knee - Right Description: (Pt denies any pain to start today) Frequency: Intermittent Post Treatment Pain Post Treatment Pain Level: No Change PROMIS Scales Higher is Better 08/12/2023 07/13/2023 Phys Func - Score 43 (mild dysfunction) 43 (mild dysfunction) Phys Func - Percentile 24 % 24 % Self-Eff Symptom - Score 44 (Average) 44 (Average) Self-Eff Symptom - Percentile 27 % 27 % T-scores: mean of general population = 50. 5 points is clinically meaningfully difference Percentiles provide an indication of how the patient's score ranks in relation to the general population. Higher percentile rankings indicate better function/quality of life. 50th percentile is the average of the general population and indicates half of respondents had a worse score. OBJECTIVE MEASURES WITH LEVEL OF FUNCTION: LE AROM R LE AROM: supine L LE AROM: supine R Knee Extension: 0 Degrees R Knee Flexion: 129 Degrees L Knee Extension: 1 Degrees L Knee Flexion: 119 Degrees LE Strength Lower Extremity Dynamometer Testing : Yes Dynamometer Strength Right Quadriceps Strength (lbs): 65.1 Left Quadriceps Strength (lbs): 69.3 Quad Strength Limb Symmetry Index (%): 106.45 Right Hamstring Strength (lbs): 48.4 Left Hamstring Strength (lbs): 50.7 Hamstring Strength Limb Symmetry Index(%): 104.75 Gait Gait Observation: normal but pt describes her gait as waddling. Waist / Hip Waist Circumference: 129 Inches Hip Circumference: 139 Inches Waist to Hip Ratio:: 0.93 Functional Performance Test Results 5 Times Sit to Stand Test : 8.6 sec Timed Up and Go (sec): 7.3 sec 4 Stage Balance Test Tandem base of support (sec): 49 sec Single leg stance - right (sec): 7 sec Single leg stance - left (sec): 9 sec Unilateral Stance Time R Unilateral Stance Time (sec): 7 sec L Unilateral Stance Time (sec): 9 sec TREATMENT: Therapeutic Exercise: 1: SciFit seat #10 x6 minutes 2: repeated sit to stand as test and treatment 3: HEP knee stretches 4: HEP reviewed and continuation encouraged to tolerance. All of her questions were answered. 5: Re-assessment results reviewed with pt and used as rationale for proposed d/c Skilled Inte (more content not included)... [facility] 09-05-2023 History of Present illness Narrative Episode Visit Count: 9 Therapist That Will Accept/Oversee The Plan Of Care: Guanakito Reyna PT Start of Care Date: 07/15/23 Onset Date: 03/24/23 Plan of Care Certification Date: 08/12/23 Next Certification Due Date: 09/09/23 Patient Identified by Name and Date of : Yes REHABILITATION AND SPORTS THERAPY PHYSICAL THERAPY DISCONTINUANCE OF CARE PLAN OF CARE UPDATE: Assessment: Jessica Merrill is discontinued from Physical Therapy services due to goal achievement and maximal benefit. and Patient/Clinician mutual decision to discontinue current plan of care.. Patient was seen for 9 visits from Start of Care Date: 07/15/23 to 09/05/2023 and treatment included: Therapeutic exercise, Neuromuscular re-education, Self-fci management, Patient/Family/Caregiver Education, Body mechanics training, Functional training, and General conditioning. Updated: 08/12/23 and 09/05/23 Goals for Episode of Care: created on 07/15/23 through 08/26/23 Glenn in home exercise program. - MET Patient will decrease pain rating by 2 points to meet minimal clinical important difference for numeric pain rating scale. - MET Patient will increase active ROM of B knees to WFL, symmetrical and pain-free to allow pt to to improve performance of ADLs, to improve gait mechanics / gait pattern , and to decrease falls risks . - Mostly MET Perform rising, walking, stairs and exercising with decreased report of symptoms/pain in 6 weeks. - MET Increased strength of B LEs and trunk to WFL and symmetrical with dynamometer for improved stability during all functional mobility. - MET Patient will ascend and descend flight of stairs independently with safe technique demonstrating step over step pattern. - Partially MET Patient will report no falls. - MET Improve performance on 4 Stage Balance Test to 10 second tandem and SLS at age and gender norms to reflect decreased fall risk. - Partially MET Patient Goals: decrease pain and stay active - MET SUBJECTIVE: Pt reports that overall she is much improved. She reports that the biggest improvement has been that she can now trim her toe nails without difficulty. She also reports improved ability to squat down to bathtub drain. She reports compliance with HEP and she plans to continue. She feels that she is walking better now. She reports that rising, stairs and exercising are all better. She reports that she is capable of negotating stairs step over step. She denies any falls. She feels confident that she can self-manage. Pain: Pain Pain Level: 0 Pain Location: Knee - Left, Knee - Right Description: (Pt denies any pain to start today) Frequency: Intermittent Post Treatment Pain Post Treatment Pain Level: No Change PROMIS Scales Higher is Better 08/12/2023 07/13/2023 Phys Func - Score 43 (mild dysfunction) 43 (mild dysfunction) Phys Func - Percentile 24 % 24 % Self-Eff Symptom - Score 44 (Average) 44 (Average) Self-Eff Symptom - Percentile 27 % 27 % T-scores: mean of general population = 50. 5 points is clinically meaningfully difference Percentiles provide an indication of how the patient's score ranks in relation to the general population. Higher percentile rankings indicate better function/quality of life. 50th percentile is the average of the general population and indicates half of respondents had a worse score. OBJECTIVE MEASURES WITH LEVEL OF FUNCTION: LE AROM R LE AROM: supine L LE AROM: supine R Knee Extension: 0 Degrees R Knee Flexion: 129 Degrees L Knee Extension: 1 Degrees L Knee Flexion: 119 Degrees LE Strength Lower Extremity Dynamometer Testing : Yes Dynamometer Strength Right Quadriceps Strength (lbs): 65.1 Left Quadriceps Strength (lbs): 69.3 Quad Strength Limb Symmetry Index (%): 106.45 Right Hamstring Strength (lbs): 48.4 Left Hamstring Strength (lbs): 50.7 Hamstring Strength Limb Symmetry Index(%): 104.75 Gait Gait Observation: normal but pt describes her gait as waddling. Waist / Hip Waist Circumference: 129 Inches Hip Circumference: 139 Inches Waist to Hip Ratio:: 0.93 Functional Performance Test Results 5 Times Sit to Stand Test : 8.6 sec Timed Up and Go (sec): 7.3 sec 4 Stage Balance Test Tandem base of support (sec): 49 sec Single leg stance - right (sec): 7 sec Single leg stance - left (sec): 9 sec Unilateral Stance Time R Unilateral Stance Time (sec): 7 sec L Unilateral Stance Time (sec): 9 sec TREATMENT: Therapeutic Exercise: 1: SciFit seat #10 x6 minutes 2: repeated sit to stand as test and treatment 3: HEP knee stretches 4: HEP reviewed and continuation encouraged to tolerance. All of her questions were answered. 5: Re-assessment results reviewed with pt and used as rationale for proposed d/c Skilled Intervention: Patient education as noted. Neuromuscular Re-Education: 1: Re-assessment results were reviewed with patient and used as rationale for d/c recommendations. All of her questions were answered and recommendations made. Skilled Intervention: Skilled judgment used to assess appropriate program for balance and coordination activity. Ensured patient safety with use of gait belt Billing Therapeutic Exercise Treatment Minutes: 30 Neuromuscular Re-Education Treatment Minutes: 15 Skilled Treatment Time Minutes (timed and untimed codes): 45 Total Session Time (minutes): 45 Session Start Time : 1508 Session Stop Time : 1553 Guanakito Reyna PT documented in this encounter [facility] 09-02-2023 Note HNO ID: [id number] Author: Guanakito Reyna PT Service: ? Author Type: Physical Therapist Type: Progress Notes Filed: 09/02/2023 4:13 PM Note Text: Episode Visit Count: 8 Therapist That Will Accept/Oversee The Plan Of Care: Guanakito Reyna PT Start of Care Date: 07/15/23 Onset Date: 03/24/23 Plan of Care Certification Date: 08/12/23 Next Certification Due Date: 09/09/23 Patient Identified by Name and Date of : Yes REHABILITATION AND SPORTS THERAPY PHYSICAL THERAPY TREATMENT NOTE ASSESSMENT: Jessica Merrill tolerated the session with fatigue and decreased symptoms. She demonstrated improvements in pain and exercise tolerance. The patient will continue to benefit from ongoing skilled physical therapy to progress toward set goals and for reassessment by supervising therapist. PLAN FOR NEXT VISIT: Continue with therex for strengthening and balance training. Re-assess for plan of care update. SUBJECTIVE: Pt reports that overall she is better. She reports that home exercises are getting easier. She denies any increased pain or problems following last session. She reports soreness and fatigue but no increase in pain. She feels that HEP is helpful but she needs to be more compliant. Pain: Pain Pain Level: 0 Pain Location: Knee - Left, Knee - Right Description: (no pain to start today) Frequency: Intermittent Post Treatment Pain Post Treatment Pain Level: 0 Post Treatment Pain Location: Knee - Right, Knee - Left Post Treatment Symptoms: Pt reported and demonstrated fatigue but denied any increase in pain. OBJECTIVE MEASURES WITH LEVEL OF FUNCTION: TREATMENT: Therapeutic Exercise: 1: SciFit seat #10 x6 minutes (Pt provided an update on her condition and plan of care reviewed.) 2: repeated sit to stand from chair with 15# ball in hands 3x10 3: HS curl machine B 70# 3x10 4: B leg press 60# 3x12 5: blue t-band monster walking: B sidestepping, monster walk forward and monster walk backwards 2 laps around gym. 6: lateral step ups on and over dome side of BOSU at // bars 2x10 7: *wall slides 2x10 8: forward step down and retro step backward up 2x10 B on 6 inch blue step in // bars 9: HEP reviewed and continuation encouraged to tolerance. Skilled Intervention: Patient was educated in proper exercise technique and purpose for exercises. Reviewed and educated patient on additions/changes for home exercise program as above (*). Skilled judgment was used in selection of appropriate interventions. Provided written instruction for home exercise program to facilitate proper performance and compliance. Correct performance of therapeutic exercises was facilitated with verbal and visual cuing. Patient education as noted. Billing Therapeutic Exercise Treatment Minutes: 41 Skilled Treatment Time Minutes (timed and untimed codes): 41 Total Session Time (minutes): 41 Session Start Time : 1450 Session Stop Time : 1531 Guanakito Reyna PT [facility] 09-02-2023 History of Present illness Narrative Program_ID:[id number] Access Code: [email or web address] URL: [email or web address] Date: 09-02-2023 Prepared By: Guanakito Reyna Program Notes Exercises - Long Sitting Quad Set with Towel Roll Under Heel - 3 x daily - 7 x weekly - 2 - 10 - Supine Heel Slides - 3 x daily - 7 x weekly - 2 - 10 - Supine Active Straight Leg Raise - 2 x daily - 7 x weekly - 2 - 10 - Sidelying Hip Abduction - 2 x daily - 7 x weekly - 2 - 10 - Clamshell with Resistance - 2 x daily - 7 x weekly - 2 - 10 - Sit to Stand - 2 x daily - 7 x weekly - 2 - 10 - Wall Slide with Posterior Pelvic Tilt - 2 x daily - 7 x weekly - 2 - 10 Episode Visit Count: 8 Therapist That Will Accept/Oversee The Plan Of Care: Guanakito Reyna PT Start of Care Date: 07/15/23 Onset Date: 03/24/23 Plan of Care Certification Date: 08/12/23 Next Certification Due Date: 09/09/23 Patient Identified by Name and Date of : Yes REHABILITATION AND SPORTS THERAPY PHYSICAL THERAPY TREATMENT NOTE ASSESSMENT: Jessica Merrill tolerated the session with fatigue and decreased symptoms. She demonstrated improvements in pain and exercise tolerance. The patient will continue to benefit from ongoing skilled physical therapy to progress toward set goals and for reassessment by supervising therapist. PLAN FOR NEXT VISIT: Continue with therex for strengthening and balance training. Re-assess for plan of care update. SUBJECTIVE: Pt reports that overall she is better. She reports that home exercises are getting easier. She denies any increased pain or problems following last session. She reports soreness and fatigue but no increase in pain. She feels that HEP is helpful but she needs to be more compliant. Pain: Pain Pain Level: 0 Pain Location: Knee - Left, Knee - Right Description: (no pain to start today) Frequency: Intermittent Post Treatment Pain Post Treatment Pain Level: 0 Post Treatment Pain Location: Knee - Right, Knee - Left Post Treatment Symptoms: Pt reported and demonstrated fatigue but denied any increase in pain. OBJECTIVE MEASURES WITH LEVEL OF FUNCTION: TREATMENT: Therapeutic Exercise: 1: SciFit seat #10 x6 minutes (Pt provided an update on her condition and plan of care reviewed.) 2: repeated sit to stand from chair with 15# ball in hands 3x10 3: HS curl machine B 70# 3x10 4: B leg press 60# 3x12 5: blue t-band monster walking: B sidestepping, monster walk forward and monster walk backwards 2 laps around gym. 6: lateral step ups on and over dome side of BOSU at // bars 2x10 7: *wall slides 2x10 8: forward step down and retro step backward up 2x10 B on 6 inch blue step in // bars 9: HEP reviewed and continuation encouraged to tolerance. Skilled Intervention: Patient was educated in proper exercise technique and purpose for exercises. Reviewed and educated patient on additions/changes for home exercise program as above (*). Skilled judgment was used in selection of appropriate interventions. Provided written instruction for home exercise program to facilitate proper performance and compliance. Correct performance of therapeutic exercises was facilitated with verbal and visual cuing. Patient education as noted. Billing Therapeutic Exercise Treatment Minutes: 41 Skilled Treatment Time Minutes (timed and untimed codes): 41 Total Session Time (minutes): 41 Session Start Time : 1450 Session Stop Time : 1531 Guanakito Reyna PT documented in this encounter [facility] 08-29-2023 Note HNO ID: [id number] Author: Guanakito Reyna PT Service: ? Author Type: Physical Therapist Type: Progress Notes Filed: 08/29/2023 4:25 PM Note Text: Episode Visit Count: 7 Therapist That Will Accept/Oversee The Plan Of Care: Guanakito Reyna PT Start of Care Date: 07/15/23 Onset Date: 03/24/23 Plan of Care Certification Date: 08/12/23 Next Certification Due Date: 09/09/23 Patient Identified by Name and Date of : Yes REHABILITATION AND SPORTS THERAPY PHYSICAL THERAPY TREATMENT NOTE ASSESSMENT: Jessica Merrill tolerated the session with fatigue, expected muscle soreness, and no issues. She demonstrated improvements in exercise tolerance. The patient will continue to benefit from ongoing skilled physical therapy to progress toward set goals. PLAN FOR NEXT VISIT: Continue with therex for strengthening and balance training. SUBJECTIVE: Pt reports that she has not been able to do HEP consistently and therefore she denies any noticeable change since last session. Pain: Pain Pain Level: 0 Post Treatment Pain Post Treatment Pain Level: No Change Post Treatment Symptoms: Pt reported fatigue but denied any increase in pain. OBJECTIVE MEASURES WITH LEVEL OF FUNCTION: TREATMENT: Therapeutic Exercise: 1: SciFit seat #12 x6 minutes (Pt provided an update on her condition and plan of care reviewed.) 2: repeated sit to stand from chair with 15# ball in hands 3x10 3: HS curl machine B 70# 3x10 4: B leg press 60# 3x10 5: blue t-band monster walking: B sidestepping, monster walk forward and monster walk backwards 2 laps around gym. 6: lateral step ups on and over dome side of BOSU at // bars 2x10 7: squats at // bars with emphasis on proper form and technique 2x10. Lots of verbal, visual, and tactile cues necessary. 8: HEP reviewed and continuation encouraged to tolerance. Skilled Intervention: Patient was educated in proper exercise technique and purpose for exercises. Skilled judgment was used in selection of appropriate interventions. Correct performance of therapeutic exercises was facilitated with verbal and visual cuing. Patient education as noted. Billing Therapeutic Exercise Treatment Minutes: 45 Skilled Treatment Time Minutes (timed and untimed codes): 45 Total Session Time (minutes): 45 Session Start Time : 1501 Session Stop Time : 1546 Guanakito Reyna PT [facility] 08-22-2023 Note HNO ID: [id number] Author: Guanakito Reyna PT Service: ? Author Type: Physical Therapist Type: Progress Notes Filed: 08/25/2023 10:29 AM Note Text: Episode Visit Count: 6 Therapist That Will Accept/Oversee The Plan Of Care: Guanakito Reyna PT Start of Care Date: 07/15/23 Onset Date: 03/24/23 Plan of Care Certification Date: 08/12/23 Next Certification Due Date: 09/09/23 Patient Identified by Name and Date of : Yes REHABILITATION AND SPORTS THERAPY PHYSICAL THERAPY TREATMENT NOTE ASSESSMENT: Jessica Merrill tolerated the session with fatigue. She demonstrated difficulty with lateral step ups over dome side of BOSU. The patient will continue to benefit from ongoing skilled physical therapy to progress toward set goals. PLAN FOR NEXT VISIT: Incorporate balance, possibly using foam beams SUBJECTIVE: Pt reports that she is feeling fine today. pt deneis any falls since last visit. Pain: Pain Pain Level: 0 Pain Location: Knee - Left, Knee - Right Post Treatment Pain Post Treatment Pain Level: No Change OBJECTIVE MEASURES WITH LEVEL OF FUNCTION: TREATMENT: Therapeutic Exercise: 1: lateral step ups on and over dome side of BOSU at // bars 2x10 2: Step downs on 4 inch step 2x10 B 3: Standing HS curls 2x10 B 4: squats at // bars with emphasis on proper form and technique 2x10. Lots of verbal, visual, and tactile cues necessary. 5: blue t-band monster walking: B sidestepping, monster walk forward and monster walk backwards 2x30 feet each 6: Standing hip extension 2x10 B 7: repeated sit to stand from chair with 11# ball in hands 2x10 Skilled Intervention: Patient was educated in proper exercise technique and purpose for exercises. Skilled judgment was used in selection of appropriate interventions. Correct performance of therapeutic exercises was facilitated with verbal and visual cuing. Billing Therapeutic Exercise Treatment Minutes: 34 Skilled Treatment Time Minutes (timed and untimed codes): 34 Total Session Time (minutes): 34 Session Start Time : 145 Session Stop Time : 1530 MAAME Pritchard PT [facility] 08-22-2023 History of Present illness Narrative Episode Visit Count: 6 Therapist That Will Accept/Oversee The Plan Of Care: Guanakito Reyna PT Start of Care Date: 07/15/23 Onset Date: 03/24/23 Plan of Care Certification Date: 08/12/23 Next Certification Due Date: 09/09/23 Patient Identified by Name and Date of : Yes REHABILITATION AND SPORTS THERAPY PHYSICAL THERAPY TREATMENT NOTE ASSESSMENT: Jessica Merrill tolerated the session with fatigue. She demonstrated difficulty with lateral step ups over dome side of BOSU. The patient will continue to benefit from ongoing skilled physical therapy to progress toward set goals. PLAN FOR NEXT VISIT: Incorporate balance, possibly using foam beams SUBJECTIVE: Pt reports that she is feeling fine today. pt deneis any falls since last visit. Pain: Pain Pain Level: 0 Pain Location: Knee - Left, Knee - Right Post Treatment Pain Post Treatment Pain Level: No Change OBJECTIVE MEASURES WITH LEVEL OF FUNCTION: TREATMENT: Therapeutic Exercise: 1: lateral step ups on and over dome side of BOSU at // bars 2x10 2: Step downs on 4 inch step 2x10 B 3: Standing HS curls 2x10 B 4: squats at // bars with emphasis on proper form and technique 2x10. Lots of verbal, visual, and tactile cues necessary. 5: blue t-band monster walking: B sidestepping, monster walk forward and monster walk backwards 2x30 feet each 6: Standing hip extension 2x10 B 7: repeated sit to stand from chair with 11# ball in hands 2x10 Skilled Intervention: Patient was educated in proper exercise technique and purpose for exercises. Skilled judgment was used in selection of appropriate interventions. Correct performance of therapeutic exercises was facilitated with verbal and visual cuing. Billing Therapeutic Exercise Treatment Minutes: 34 Skilled Treatment Time Minutes (timed and untimed codes): 34 Total Session Time (minutes): 34 Session Start Time : 6 Session Stop Time : 1530 MAAME Pritchard PT documented in this encounter [facility] 08-19-2023 Note HNO ID: [id number] Author: Guanakito Reyna PT Service: ? Author Type: Physical Therapist Type: Progress Notes Filed: 08/19/2023 5:09 PM Note Text: Episode Visit Count: 5 Therapist That Will Accept/Oversee The Plan Of Care: Guanakito Reyna PT Start of Care Date: 07/15/23 Onset Date: 03/24/23 Plan of Care Certification Date: 08/12/23 Next Certification Due Date: 09/09/23 Patient Identified by Name and Date of : Yes REHABILITATION AND SPORTS THERAPY PHYSICAL THERAPY TREATMENT NOTE ASSESSMENT: Jessica Merrill tolerated the session with fatigue, expected muscle soreness, and no issues. She demonstrated improvements in exercise tolerance. The patient will continue to benefit from ongoing skilled physical therapy to progress toward set goals. PLAN FOR NEXT VISIT: Continue with therex for strengthening and balance training. SUBJECTIVE: Pt reports that overall she is feeling approximately the same as last session. She reports compliance with HEP 1-2x day but never 3x day. Pain: Pain Pain Level: 0 Description: (Pt denies any pain to start today.) Frequency: Intermittent Post Treatment Pain Post Treatment Pain Level: No Change Post Treatment Symptoms: She reported and demonstrated fatigue from a good workout but she denied any increase in pain. OBJECTIVE MEASURES WITH LEVEL OF FUNCTION: TREATMENT: Therapeutic Exercise: 1: SciFit StepOne seat #12 resistance level 3 x6 minutes 2: lateral step ups on and over dome side of BOSU at // bars 2x10 3: squats at // bars with emphasis on proper form and technique 2x10. Lots of verbal and visual cues necessary. 4: repeated sit to stand from chair with 11# ball in hands 2x10 5: green t-band monster walking: B sidestepping, monster walk forward and monster walk backwards 2x30 feet each 6: purple t-band TKE 2x10 B 7: HEP and pt's independent workouts were reviewed and corrected. Recommendations made. Skilled Intervention: Patient was educated in proper exercise technique and purpose for exercises. Skilled judgment was used in selection of appropriate interventions. Correct performance of therapeutic exercises was facilitated with verbal, visual, and tactile cuing. Patient education as noted. Billing Therapeutic Exercise Treatment Minutes: 43 Skilled Treatment Time Minutes (timed and untimed codes): 43 Total Session Time (minutes): 43 Session Start Time : 1450 Session Stop Time : 1533 Guanakito Reyna PT [facility] 08-15-2023 Note HNO ID: [id number] Author: Guanakito Reyna PT Service: ? Author Type: Physical Therapist Type: Progress Notes Filed: 08/15/2023 4:18 PM Note Text: Episode Visit Count: 4 Therapist That Will Accept/Oversee The Plan Of Care: Guanakito Reyna PT Start of Care Date: 07/15/23 Onset Date: 03/24/23 Plan of Care Certification Date: 08/12/23 Next Certification Due Date: 09/09/23 Patient Identified by Name and Date of : Yes REHABILITATION AND SPORTS THERAPY PHYSICAL THERAPY TREATMENT NOTE ASSESSMENT: Jessica Merrill tolerated the session with fatigue and expected muscle soreness. She demonstrated difficulty with technique with sidelying exercises. The patient will continue to benefit from ongoing skilled physical therapy to progress toward set goals. PLAN FOR NEXT VISIT: Continue with balance and ther ex for LE strengthening as tolerated. SUBJECTIVE: Pt reports that her exercsies are going well at home. Pt states her knee is feeling okay today. Pain: Pain Pain Level: 0 Pain Location: Knee - Right, Knee - Left Post Treatment Pain Post Treatment Pain Level: No Change OBJECTIVE MEASURES WITH LEVEL OF FUNCTION: TREATMENT: Therapeutic Exercise: 1: SciFit StepOne seat #12 resistance level 0 x5 minutes (pt provided an update on her condition and subjective collected) 2: Standing hip abduction 2x10 B 3: Standing hip extension 2x10 B 4: Sidelying hip abduction 2x10 B with 3# weight (verbal and tactile cueing for technique) 5: Clamshells with 3# weight 2x10 B (verbal and tactile cueing for technique) 6: Step ups 2x10 forward on 6 inch step 7: Lateral step ups on 6 inch step 2x10 B Skilled Intervention: Patient was educated in proper exercise technique and purpose for exercises. Skilled judgment was used in selection of appropriate interventions. Correct performance of therapeutic exercises was facilitated with verbal and visual cuing. Billing Therapeutic Exercise Treatment Minutes: 44 Skilled Treatment Time Minutes (timed and untimed codes): 44 Total Session Time (minutes): 44 Session Start Time : 1446 Session Stop Time : 1530 MAAME Pritchard PT [facility] 08-15-2023 History of Present illness Narrative Episode Visit Count: 4 Therapist That Will Accept/Oversee The Plan Of Care: Guanakito Reyna PT Start of Care Date: 07/15/23 Onset Date: 03/24/23 Plan of Care Certification Date: 08/12/23 Next Certification Due Date: 09/09/23 Patient Identified by Name and Date of : Yes REHABILITATION AND SPORTS THERAPY PHYSICAL THERAPY TREATMENT NOTE ASSESSMENT: Jessica Merrill tolerated the session with fatigue and expected muscle soreness. She demonstrated difficulty with technique with sidelying exercises. The patient will continue to benefit from ongoing skilled physical therapy to progress toward set goals. PLAN FOR NEXT VISIT: Continue with balance and ther ex for LE strengthening as tolerated. SUBJECTIVE: Pt reports that her exercsies are going well at home. Pt states her knee is feeling okay today. Pain: Pain Pain Level: 0 Pain Location: Knee - Right, Knee - Left Post Treatment Pain Post Treatment Pain Level: No Change OBJECTIVE MEASURES WITH LEVEL OF FUNCTION: TREATMENT: Therapeutic Exercise: 1: [employer] StepOne seat #12 resistance level 0 x5 minutes (pt provided an update on her condition and subjective collected) 2: Standing hip abduction 2x10 B 3: Standing hip extension 2x10 B 4: Sidelying hip abduction 2x10 B with 3# weight (verbal and tactile cueing for technique) 5: Clamshells with 3# weight 2x10 B (verbal and tactile cueing for technique) 6: Step ups 2x10 forward on 6 inch step 7: Lateral step ups on 6 inch step 2x10 B Skilled Intervention: Patient was educated in proper exercise technique and purpose for exercises. Skilled judgment was used in selection of appropriate interventions. Correct performance of therapeutic exercises was facilitated with verbal and visual cuing. Billing Therapeutic Exercise Treatment Minutes: 44 Skilled Treatment Time Minutes (timed and untimed codes): 44 Total Session Time (minutes): 44 Session Start Time : 1446 Session Stop Time : 1530 MAAME Pritchard PT documented in this encounter [facility] 08-12-2023 Note HNO ID: [id number] Author: Guanakito Reyna PT Service: ? Author Type: Physical Therapist Type: Progress Notes Filed: 08/12/2023 5:02 PM Note Text: Episode Visit Count: 3 Therapist That Will Accept/Oversee The Plan Of Care: Guanakito Reyna PT Start of Care Date: 07/15/23 Onset Date: 03/24/23 Plan of Care Certification Date: 08/12/23 Next Certification Due Date: 09/09/23 Patient Identified by Name and Date of : Yes REHABILITATION AND SPORTS THERAPY PHYSICAL THERAPY PROGRESS REPORT PLAN OF CARE UPDATE: Assessment: Jessica Merrill demonstrates moderate improvement in rising from a chair, standing, and walking. She has progressed toward goals. Patient continues to present with impairments in ADL's, balance, gait, overall function, range of motion, strength, and symptom management that interfere with rising from a chair, walking, stair negotiation . Current prognosis is Excellent due to: current objective clinical presentation, good overall health status, good support system/ coping skills, positive past response to therapy. She will benefit from continued skilled therapy services to meet the updated goals for this plan of care as noted below. Updated: 08/12/23 Goals for Episode of Care: created on 07/15/23 through 08/26/23 Glenn in home exercise program. - MET, will continue and progress to tolerance Patient will decrease pain rating by 2 points to meet minimal clinical important difference for numeric pain rating scale. - Partially MET, will continue Patient will increase active ROM of B knees to WFL, symmetrical and pain-free to allow pt to to improve performance of ADLs, to improve gait mechanics / gait pattern , and to decrease falls risks . - Mostly MET, will continue Perform rising, walking, stairs and exercising with decreased report of symptoms/pain in 6 weeks. - Partially MET, will continue Increased strength of B LEs and trunk to WFL and symmetrical with dynamometer for improved stability during all functional mobility. - Partially MET, will continue Patient will ascend and descend flight of stairs independently with safe technique demonstrating step over step pattern. - Partially MET, will continue Patient will report no falls. - MET, will monitor Improve performance on 4 Stage Balance Test to 10 second tandem and SLS at age and gender norms to reflect decreased fall risk. - Partially MET, will continue Patient Goals: decrease pain and stay active - Partially MET, will continue Patient Goals: decrease pain and stay active Planned Interventions, Frequency, and Duration: 2x/week, 4 weeks Total Number of Visits Planned: 8 Patient to be seen for Therapeutic exercise (88560), Neuromuscular re-education (62460), Manual therapy (32244), Therapeutic activities (69400), Self-fci management (72412), Gait Training (76066), Patient/Family/Caregiver Education, General Conditioning, Body Mechanics Training PLAN FOR NEXT VISIT: Review, correct and progress HEP to tolerance. Focus should be on active therex to address B knee ROM, pain and LE/trunk strength. Balance training can also be incorporated, especially SLS. SUBJECTIVE: Pt reports that overall she is better since starting PT. She reports that her ROM in knees is improved. She generally feels that she is improved functionally. She reports that she has been traveling and it has not been convenient to do HEP consistently. She denies any improvements with stair negotiation. She reports that rising and walking are improved but not fully normalized. She denies any pain to start today. She denies any falls since starting PT. Patient Goals: decrease pain and stay active Functional Limitations: rising from a chair, walking, stair negotiation Prior Level of Function: Independent with restrictions Independent with the following restrictions: chronic B knee pain Pain: Pain Pain Level: 0 Pain Location: Knee - Right, Knee - Left Frequency: Intermittent, With movement, Walking, Stairs Post Treatment Pain Post Treatment Pain Level: No Change PROMIS Scales Higher is Better 08/12/2023 07/13/2023 Phys Func - Score 43 (mild dysfunction) 43 (mild dysfunction) Phys Func - Percentile 24 % 24 % Self-Eff Symptom - Score 44 (Average) 44 (Average) Self-Eff Symptom - Percentile 27 % 27 % T-scores: mean of general population = 50. 5 points is clinically meaningfully difference Percentiles provide an indication of how the patient's score ranks in relation to the general population. Higher percentile rankings indicate better function/quality of life. 50th percentile is the average of the general population and indicates half of respondents had a worse score. OBJECTIVE MEASURES WITH LEVEL OF FUNCTION: LE AROM R LE AROM: supine L LE AROM: supine R Knee Extension: -3 Degrees R Knee Flexion: 125 Degrees L Knee Extension: 0 Degrees L Knee Flexion: 120 Degrees LE Strength Trunk S (more content not included)... [facility] 08-12-2023 History of Present illness Narrative Episode Visit Count: 3 Therapist That Will Accept/Oversee The Plan Of Care: Guanakito Reyna PT Start of Care Date: 07/15/23 Onset Date: 03/24/23 Plan of Care Certification Date: 08/12/23 Next Certification Due Date: 09/09/23 Patient Identified by Name and Date of : Yes REHABILITATION AND SPORTS THERAPY PHYSICAL THERAPY PROGRESS REPORT PLAN OF CARE UPDATE: Assessment: Jessica Merrill demonstrates moderate improvement in rising from a chair, standing, and walking. She has progressed toward goals. Patient continues to present with impairments in ADL's, balance, gait, overall function, range of motion, strength, and symptom management that interfere with rising from a chair, walking, stair negotiation . Current prognosis is Excellent due to: current objective clinical presentation, good overall health status, good support system/ coping skills, positive past response to therapy. She will benefit from continued skilled therapy services to meet the updated goals for this plan of care as noted below. Updated: 08/12/23 Goals for Episode of Care: created on 07/15/23 through 08/26/23 Glenn in home exercise program. - MET, will continue and progress to tolerance Patient will decrease pain rating by 2 points to meet minimal clinical important difference for numeric pain rating scale. - Partially MET, will continue Patient will increase active ROM of B knees to WFL, symmetrical and pain-free to allow pt to to improve performance of ADLs, to improve gait mechanics / gait pattern , and to decrease falls risks . - Mostly MET, will continue Perform rising, walking, stairs and exercising with decreased report of symptoms/pain in 6 weeks. - Partially MET, will continue Increased strength of B LEs and trunk to WFL and symmetrical with dynamometer for improved stability during all functional mobility. - Partially MET, will continue Patient will ascend and descend flight of stairs independently with safe technique demonstrating step over step pattern. - Partially MET, will continue Patient will report no falls. - MET, will monitor Improve performance on 4 Stage Balance Test to 10 second tandem and SLS at age and gender norms to reflect decreased fall risk. - Partially MET, will continue Patient Goals: decrease pain and stay active - Partially MET, will continue Patient Goals: decrease pain and stay active Planned Interventions, Frequency, and Duration: 2x/week, 4 weeks Total Number of Visits Planned: 8 Patient to be seen for Therapeutic exercise (87320), Neuromuscular re-education (15615), Manual therapy (06151), Therapeutic activities (37839), Self-fci management (05350), Gait Training (68621), Patient/Family/Caregiver Education, General Conditioning, Body Mechanics Training PLAN FOR NEXT VISIT: Review, correct and progress HEP to tolerance. Focus should be on active therex to address B knee ROM, pain and LE/trunk strength. Balance training can also be incorporated, especially SLS. SUBJECTIVE: Pt reports that overall she is better since starting PT. She reports that her ROM in knees is improved. She generally feels that she is improved functionally. She reports that she has been traveling and it has not been convenient to do HEP consistently. She denies any improvements with stair negotiation. She reports that rising and walking are improved but not fully normalized. She denies any pain to start today. She denies any falls since starting PT. Patient Goals: decrease pain and stay active Functional Limitations: rising from a chair, walking, stair negotiation Prior Level of Function: Independent with restrictions Independent with the following restrictions: chronic B knee pain Pain: Pain Pain Level: 0 Pain Location: Knee - Right, Knee - Left Frequency: Intermittent, With movement, Walking, Stairs Post Treatment Pain Post Treatment Pain Level: No Change PROMIS Scales Higher is Better 08/12/2023 07/13/2023 Phys Func - Score 43 (mild dysfunction) 43 (mild dysfunction) Phys Func - Percentile 24 % 24 % Self-Eff Symptom - Score 44 (Average) 44 (Average) Self-Eff Symptom - Percentile 27 % 27 % T-scores: mean of general population = 50. 5 points is clinically meaningfully difference Percentiles provide an indication of how the patient's score ranks in relation to the general population. Higher percentile rankings indicate better function/quality of life. 50th percentile is the average of the general population and indicates half of respondents had a worse score. OBJECTIVE MEASURES WITH LEVEL OF FUNCTION: LE AROM R LE AROM: supine L LE AROM: supine R Knee Extension: -3 Degrees R Knee Flexion: 125 Degrees L Knee Extension: 0 Degrees L Knee Flexion: 120 Degrees LE Strength Trunk Strength: Pt reports functional improvements with rising, walking and functional mobility in general but still reports functional difficulties. R LE Strength: Pt reports functional improvements with rising, walking and functional mobility in general but still reports functional difficulties. L LE Strength: Pt reports functional improvements with rising, walking and functional mobility in general but still reports functional difficulties. Lower Extremity Dynamometer Testing : Yes Dynamometer Strength Right Quadriceps Strength (lbs): 67.1 Left Quadriceps Strength (lbs): 79.4 Quad Strength Limb Symmetry Index (%): 118.33 Right Hamstring Strength (lbs): 49.6 Left Hamstring Strength (lbs): 43.7 Hamstring Strength Limb Symmetry Index(%): 88.10 Waist / Hip Waist Circumference: 131 Inches (cm) Hip Circumference: 142 Inches (cm) Waist to Hip Ratio:: 0.92 Hull waist/hip ratio: Female: 0.8 or Less 4 Stage Balance Test Tandem base of support (sec): 44 sec Single leg stance - right (sec): 7 sec Single leg stance - left (sec): 4 sec Unilateral Stance Time R Unilateral Stance Time (sec): 7 sec L Unilateral Stance Time (sec): 4 sec TREATMENT: Therapeutic Exercise: 1: [employer] StepOne seat #12 resistance level 0 x5 minutes (pt provided an update on her condition and subjective portion of goals assessed) 2: (Pt's current workout routine was discussed and recommendations made for safe completion.) 3: HEP was thoroughly reviewed and continuation encouraged to tolerance 4: *repeated sit to stand from chair 2x10 5: supine heel slides reviewed for HEp 6: Supine quad sets reviewed for HEP. 7: Clam shells, supine SLR and sidelying SLR reviewed for HEP Skilled Intervention: Patient was educated in proper exercise technique and purpose for exercises. Reviewed and educated patient on additions/changes for home exercise program as above (*). Skilled judgment was used in selection of appropriate interventions. Provided written instruction for home exercise program to facilitate proper performance and compliance. Correct performance of therapeutic exercises was facilitated with verbal and visual cuing. Patient education as noted. Neuromuscular Re-Education: 1: Balance assessments completed per above. Pt was advised several times that she should not attempt balance exercises or tests at home. 2: Re-assessment results were reviewed with pt in detail and used as rationale for plan of care recommendations. Skilled Intervention: Skilled judgment used to assess appropriate program for balance and coordination activity. Ensured patient safety with use of gait belt and intermittent assist. Billing Therapeutic Exercise Treatment Minutes: 37 Neuromuscular Re-Education Treatment Minutes: 10 Skilled Treatment Time Minutes (timed and untimed codes): 47 Total Session Time (minutes): 47 Session Start Time : 1452 Session Stop Time : 1539 Guanakito Reyna PT documented in this encounter [facility] 08-08-2023 Note HNO ID: [id number] Author: Guanakito Reyna PT Service: ? Author Type: Physical Therapist Type: Progress Notes Filed: 08/08/2023 4:21 PM Note Text: Episode Visit Count: 2 Therapist That Will Accept/Oversee The Plan Of Care: Guanakito Reyna PT Start of Care Date: 07/15/23 Onset Date: 03/24/23 Plan of Care Certification Date: 07/15/23 Next Certification Due Date: 08/26/23 Patient Identified by Name and Date of : Yes REHABILITATION AND SPORTS THERAPY PHYSICAL THERAPY TREATMENT NOTE ASSESSMENT: Jessica Merrill tolerated the session with fatigue, expected muscle soreness, and no issues. She demonstrated improvements in exercise tolerance and L knee flexion AROM. The patient will continue to benefit from ongoing skilled physical therapy to progress toward set goals. PLAN FOR NEXT VISIT: Review, correct and progress HEP to tolerance. Focus should be on active therex to address B knee ROM, pain and LE/trunk strength. Balance training can also be incorporated. SUBJECTIVE: Pt reports that overall she feels the same as she did at evaluation. She reports partial compliance with HEP but not consistently. Pain: Pain Pain Level: 0 Pain Location: Knee - Right, Knee - Left Description: ( no, not significantly ) Frequency: Intermittent, With movement, Walking, Stairs Post Treatment Pain Post Treatment Pain Level: No Change OBJECTIVE MEASURES WITH LEVEL OF FUNCTION: LE AROM R LE AROM: supine L LE AROM: supine R Knee Extension: -3 Degrees R Knee Flexion: 122 Degrees L Knee Extension: -2 Degrees L Knee Flexion: 123 Degrees TREATMENT: Therapeutic Exercise: 1: [employer] StepOne seat #12 resistance level 0 x5 minutes (Pt provided an update on her condition and plan of care reviewed. HEP reviewed and corrected.) 2: supine B heel slides to facilitate knee flexion 2x10 each 3: supine quad sets with heel propped, 2 second hold and 2x10 to facilitate quad activation and B knee extension ROM 4: *supine B SLR 2x10 5: *sidelying B hip abduction SLR 2x10 6: *sidelying B clamshells 2x10 with 3# ankle weight at knee (blue t-band loop provided for HEP) 7: repeated sit to stand from mat table 21 inches tall 2x10 with 11# ball in hands 8: B forward step ups on 6 inch step 2x10 Skilled Intervention: Patient was educated in proper exercise technique and purpose for exercises. Reviewed and educated patient on additions/changes for home exercise program as above (*). Skilled judgment was used in selection of appropriate interventions. Provided written instruction for home exercise program to facilitate proper performance and compliance. Correct performance of therapeutic exercises was facilitated with verbal and visual cuing. Patient education as noted. Neuromuscular Re-Education: 1: NBOS on square blue foam eyes open x30 seconds 2: NBOS on square blue foam eyes closed x30 seconds 3: NBOS on square blue foam cervical rotation x30 seconds 4: balance board side to side eyes open x15 5: balance board side to side eyes closed x15 6: balance board front to back eyes open x15 7: balance board front to back eyes closed x15 8: HEP reviewed and pt was advised that she should not be doing balance exercises at home secondary to risk of falling. Skilled Intervention: Skilled judgment used to assess appropriate program for balance and coordination activity. Ensured patient safety with use of gait belt. Billing Therapeutic Exercise Treatment Minutes: 35 Neuromuscular Re-Education Treatment Minutes: 10 Skilled Treatment Time Minutes (timed and untimed codes): 45 Total Session Time (minutes): 45 Session Start Time : 1510 Session Stop Time : 1555 Guanakito Reyna PT [facility] 08-08-2023 History of Present illness Narrative Episode Visit Count: 2 Therapist That Will Accept/Oversee The Plan Of Care: Guanakito Reyna PT Start of Care Date: 07/15/23 Onset Date: 03/24/23 Plan of Care Certification Date: 07/15/23 Next Certification Due Date: 08/26/23 Patient Identified by Name and Date of : Yes REHABILITATION AND SPORTS THERAPY PHYSICAL THERAPY TREATMENT NOTE ASSESSMENT: Jessica Merrill tolerated the session with fatigue, expected muscle soreness, and no issues. She demonstrated improvements in exercise tolerance and L knee flexion AROM. The patient will continue to benefit from ongoing skilled physical therapy to progress toward set goals. PLAN FOR NEXT VISIT: Review, correct and progress HEP to tolerance. Focus should be on active therex to address B knee ROM, pain and LE/trunk strength. Balance training can also be incorporated. SUBJECTIVE: Pt reports that overall she feels the same as she did at evaluation. She reports partial compliance with HEP but not consistently. Pain: Pain Pain Level: 0 Pain Location: Knee - Right, Knee - Left Description: ( no, not significantly ) Frequency: Intermittent, With movement, Walking, Stairs Post Treatment Pain Post Treatment Pain Level: No Change OBJECTIVE MEASURES WITH LEVEL OF FUNCTION: LE AROM R LE AROM: supine L LE AROM: supine R Knee Extension: -3 Degrees R Knee Flexion: 122 Degrees L Knee Extension: -2 Degrees L Knee Flexion: 123 Degrees TREATMENT: Therapeutic Exercise: 1: [employer] StepOne seat #12 resistance level 0 x5 minutes (Pt provided an update on her condition and plan of care reviewed. HEP reviewed and corrected.) 2: supine B heel slides to facilitate knee flexion 2x10 each 3: supine quad sets with heel propped, 2 second hold and 2x10 to facilitate quad activation and B knee extension ROM 4: *supine B SLR 2x10 5: *sidelying B hip abduction SLR 2x10 6: *sidelying B clamshells 2x10 with 3# ankle weight at knee (blue t-band loop provided for HEP) 7: repeated sit to stand from mat table 21 inches tall 2x10 with 11# ball in hands 8: B forward step ups on 6 inch step 2x10 Skilled Intervention: Patient was educated in proper exercise technique and purpose for exercises. Reviewed and educated patient on additions/changes for home exercise program as above (*). Skilled judgment was used in selection of appropriate interventions. Provided written instruction for home exercise program to facilitate proper performance and compliance. Correct performance of therapeutic exercises was facilitated with verbal and visual cuing. Patient education as noted. Neuromuscular Re-Education: 1: NBOS on square blue foam eyes open x30 seconds 2: NBOS on square blue foam eyes closed x30 seconds 3: NBOS on square blue foam cervical rotation x30 seconds 4: balance board side to side eyes open x15 5: balance board side to side eyes closed x15 6: balance board front to back eyes open x15 7: balance board front to back eyes closed x15 8: HEP reviewed and pt was advised that she should not be doing balance exercises at home secondary to risk of falling. Skilled Intervention: Skilled judgment used to assess appropriate program for balance and coordination activity. Ensured patient safety with use of gait belt. Billing Therapeutic Exercise Treatment Minutes: 35 Neuromuscular Re-Education Treatment Minutes: 10 Skilled Treatment Time Minutes (timed and untimed codes): 45 Total Session Time (minutes): 45 Session Start Time : 1510 Session Stop Time : 1555 Guanakito Reyna PT documented in this encounter [facility] 07-15-2023 Note HNO ID: [id number] Author: Guanakito Reyna PT Service: ? Author Type: Physical Therapist Type: Progress Notes Filed: 07/15/2023 1:15 PM Note Text: Episode Visit Count: 1 Therapist That Will Accept/Oversee The Plan Of Care: Guanakito Reyna PT Start of Care Date: 07/15/23 Onset Date: 03/24/23 Plan of Care Certification Date: 07/15/23 Next Certification Due Date: 08/26/23 Patient Identified by Name and Date of : Yes REHABILITATION AND SPORTS THERAPY PHYSICAL THERAPY EVALUATION PLAN OF CARE: Assessment: Jessica Merrill presents with diagnosis of B knee OA and resulting balance deficits that interferes with rising from a chair, walking, stair negotiation (exercising) . She presents with impairments in ADL's, balance, gait, independence in exercise, joint mobility, overall function, range of motion, strength, and symptom management. PROMIS? (Patient-Reported Outcomes Measurement Information System) scores were reviewed and physical function domain identified as a rehabilitation concern. Prognosis for therapy is Excellent due to: current objective clinical presentation, good overall health status, good support system/ coping skills, positive past response to therapy. She will benefit from skilled therapy services to meet the goals established for this plan of care as noted below. Assessment Fall Risk : Inactive at risk Goals for Episode of Care: created on 07/15/23 through 08/26/23 Glenn in home exercise program. Patient will decrease pain rating by 2 points to meet minimal clinical important difference for numeric pain rating scale. Patient will increase active ROM of B knees to WFL, symmetrical and pain-free to allow pt to to improve performance of ADLs, to improve gait mechanics / gait pattern , and to decrease falls risks . Perform rising, walking, stairs and exercising with decreased report of symptoms/pain in 6 weeks. Increased strength of B LEs and trunk to WFL and symmetrical with dynamometer for improved stability during all functional mobility. Patient will ascend and descend flight of stairs independently with safe technique demonstrating step over step pattern. Patient will report no falls. Improve performance on 4 Stage Balance Test to 10 second tandem and SLS at age and gender norms to reflect decreased fall risk. Patient Goals: decrease pain and stay active Planned Interventions, Frequency, and Duration: Current Frequency: 2x/week Duration: 6 weeks Total Number of Visits Planned: 12 Planned Treatment Interventions: Therapeutic exercise (36454), Neuromuscular re-education (61886), Manual therapy (59905), Therapeutic activities (60232), Self-fci management (39942), Gait Training (34642), Patient/Family/Caregiver Education, Functional training, General Conditioning PLAN FOR NEXT VISIT: Review, correct and progress HEP to tolerance. Focus should be on active therex to address B knee ROM, pain and LE/trunk strength. Balance training can also be incorporated. Pt will be leaving on vacation soon and will begin supervised PT when she returns in a couple of weeks. Patient demonstrates good understanding of plan of care and treatment. The above goals and plan of care were discussed and agreed upon by patient/family. SUBJECTIVE: Patient reports chronic B knee pain, history of L quad tendon repair in 2009 and intermittent instability with knees giving out 3x per year. She reports that falls occur when knees give out and foot rolls. She reports that has recently attempted to resume working out at [employer] and this is when knee pain was aggravated. 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 Home Environment Patient Lives With: Spouse Assistance Available: PRN Home Type: Ranch Entry To Home: Stairs, With Rail Number Of Stairs Into Home: 1 Intake Information: Prescription present Previous Treatment: Self prescribed exercises Falls Interview: Two or more falls in the last year Falls Intervention: Falls Specific Functional Performance Tests Falls History # of falls in past year: 3 # of falls resulting in an injury in past year: 0 Pain: Pain Pain Level: 5 (at worst) Pain Location: Knee - Right, Knee - Left Description: Stabbing ( annoying noticeable ) Frequency: Intermittent, With movement, Walking, Stairs Post Treatment Pain Post Treatment Pain Level: No Change PROMIS Scales Higher is Better 07/13/2023 Phys Func - Score 43 (mild dysfunction) Phys Func - Percentile 24 % Self-Eff Symptom - Score 44 (Av (more content not included)... [facility] 06-26-2023 Note HNO ID: [id number] Author: Maida العلي RT(R) Service: ? Author Type: Gunner'S Mate M Type: Progress Notes Filed: 06/26/2023 12:10 PM Note Text: Radiology Service Progress Note PATIENT NAME: Jessica Merrill DATE OF SERVICE: June 26, 2023 TIME: 11:48 AM PATIENT IDENTITY VERIFICATION COMPLETED USING TWO (2) IDENTIFIERS: Name and Date of confirmed by patient verbally. FALL SCREENING: Has the patient had 2 falls in the last year or 1 fall with injury or currently using an Ambulatory Assistive Device (Walker, Cane, Wheelchair, Crutches, etc.)? No PATIENT GENDER DATA: Female. status: : No status: NO. PATIENT RELEVANT IMPLANT DATA REVIEWED: Yes RADIOLOGY DEPARTMENT: General X-ray: Exam(s) Completed: Lower Extremity X-Ray(s): Knee, AP / Lat / Tunne / Merchant Bilateral PERIPHERAL IV DATA: Not applicable SIGNED BY: RT Cielo(R) June 26, 2023 11:48 AM [facility] 06-26-2023 Note HNO ID: [id number] Author: Josselin Stevens APRN.SURGICAL ELASTIC KNITTER Service: ? Author Type: Nurse Practitioner Type: Progress Notes Filed: 07/02/2023 7:09 AM Note Text: CC: Patient presents with: Recheck: 6 month follow up HPI Jessica Merrill is a 72 year old female who presents today for routine follow up. HTN and HLD: Ms. Merrill indicates that she is feeling well and denies any symptoms referable to elevated blood pressure. Specifically denies headache, chest pain, palpitations, dyspnea, and peripheral edema. Patient denies any side effects of her medication(s) and is compliant with their regimen. She does not check BP's generally. Jessica denies regular aerobic exercise this past summer. She watches her diet for sodium, low fat and low cholesterol some of the time. Last 3 Encounter BP Readings: Date: BP: 06/26/2023 142/98 12/12/2022 127/87[BP cece[ 07/23/2022 126/76 Chronic bilateral knee pain and right shoulder pain: Has seen orthopedics years ago but pain is slowly worsening and affecting her sleep. Reports feeling as her knees are not as steady, balance is poor and intermittently feels they will give out. Has not fallen but does try to be careful because of the pain and her balance. In 2009 had surgery for ripped quad tendon. Had MRI of both knees at that time. Denies any injury, redness, fever, or change in sensation. Has a large amount of stool urgency that once resulted in incontinence because of no bathroom available. Has had this for years so takes a daily loperamide which allows her to have daily soft brown formed Bms without the urgency. Will still have some if she goes a long time before eating. Last colonoscopy was in 2021 and polyps removed and per patient was told to have 2 year follow up. Had an EGD earlier last year for difficulty swallowing without noted concerns. In 1997 had esophageal scar tissue removed as she was having difficulty swallowing at this time REVIEW OF SYSTEMS General: no fevers, no chills, no night sweats, no recurrent infections, no change in appetite, no change in energy, and no significant changes in weight Respiratory: no cough, no wheezing, no shortness of breath, no hemoptysis Cardiovascular: no chest pain, no chest pressure, no palpitations, and no swelling GI: No nausea, vomiting, or diarrhea Neurologic: No headache, weakness, numbness, tingling, dizziness, memory loss, syncope. PAST MEDICAL HISTORY Diagnosis Date Acute gastritis without mention of hemorrhage Allergic rhinitis, cause unspecified BMI 40.0-44.9, adult ([facility]) 08/02/2013 Cataract Corneal abrasion 20 y ago Depressive disorder, not elsewhere classified Diverticulosis of colon (without mention of hemorrhage) Elevated BP 08/04/15 Esophageal reflux Iron deficiency anemia, unspecified Ocular migraine Osteopenia PMH - PAST MEDICAL HISTORY OF schatski ring PAST SURGICAL HISTORY Procedure Laterality Date COLONOSCOPY FLX DX W/COLLJ SPEC WHEN PFRMD 10/12/07 DILATION AND CURETTAGE DXAND/THER NONOBSTETRIC 12/18/1985 Dilation AND curettage EGD TRANSORAL BIOPSY SINGLE/MULTIPLE 10/12/07 LAPAROSCOPY SURG CHOLECYSTECTOMY 03/30/2013 SUTURE QUADRICEPS/HAMSTRING RUPTURE PRIMARY 08/09/2010 REPAIR QUADRICEPS performed by EVELINA CARVER at OR TONSILLECTOMY AND ADENOIDECTOMY AGE 13/> T/A (over age 12 years) TOTAL ABDOMINAL HYSTERECT W/WO RMVL TUBE OVARY 10/20/2002 Hysterectomy, BETO left ovaries ALLERGIES Ced Inhibitors, Cats, Norvasc [Amlodipine Besylate], Poison Naina, Dust Mites, and Tree And Shrub Pollen MEDICATIONS losartan (COZAAR) 50 mg tablet TAKE 1 TABLET BY MOUTH TWICE DAILY loperamide HCl (IMODIUM) 2 mg tab Take 1 tablet by mouth as needed. acetaminophen (TYLENOL ARTHRITIS PAIN) 650 mg CR tablet Take 1 tablet by mouth every 8 hours as needed. clobetasol (TEMOVATE) 0.05 % ointment Apply half of one [id number] to cover the affected area two days a week. omeprazole (PRILOSEC) 40 mg capsule TAKE 1 CAPSULE BY MOUTH ONCE DAILY estradiol (ESTRACE) 0.01 % (0.1 mg/gram) vaginal cream APPLY 1 GRAM OF CREAM TO LOWER VAGINA AND A PEA SIZED AMOUNT TO THE OPENING OF THE VAGINA 3 TIMES WEEKLY meloxicam (MOBIC) 15 mg tablet TAKE 1 TABLET BY MOUTH ONCE DAILY zolpidem (AMBIEN) 10 mg Use half to one tablet as needed. Ferrous Gluconate 225 mg (27 mg iron) tab Take 1 tablet by mouth once daily. MAGNESIUM ORAL Take by mouth. multivitamin with minerals (HAIR,SKIN AND NAILS ORAL) Take by mouth. calcium carbonate-vitamin D3 (OSCAL+D) 500 mg-10 mcg (400 unit) chewable tablet Take 1 tablet by mouth twice daily. Cholecalciferol, Vitamin D3, 50 mcg (2,000 unit) cap Take 1 capsule by mouth once daily. COMPOUNDED PRESCRIPTION Exercise 30 minutes daily 5 days weekly multivitamin tablet Take 1 tablet by mouth twice daily. loratadine(CLARITIN 10 MG TAB) Take one(1) tablet daily as needed for allergy symptoms. FAMILY HISTORY Problem Relation Age of O (more content not included)... [facility] 06-26-2023 History of Present illness Narrative CC: Patient presents with: Recheck: 6 month follow up HPI Jessica Merrill is a 72 year old female who presents today for routine follow up. HTN and HLD: Ms. Merrill indicates that she is feeling well and denies any symptoms referable to elevated blood pressure. Specifically denies headache, chest pain, palpitations, dyspnea, and peripheral edema. Patient denies any side effects of her medication(s) and is compliant with their regimen. She does not check BP's generally. Jessica denies regular aerobic exercise this past summer. She watches her diet for sodium, low fat and low cholesterol some of the time. Last 3 Encounter BP Readings: Date: BP: 06/26/2023 142/98 12/12/2022 127/87[BP cece[ 07/23/2022 126/76 Chronic bilateral knee pain and right shoulder pain: Has seen orthopedics years ago but pain is slowly worsening and affecting her sleep. Reports feeling as her knees are not as steady, balance is poor and intermittently feels they will give out. Has not fallen but does try to be careful because of the pain and her balance. In 2009 had surgery for ripped quad tendon. Had MRI of both knees at that time. Denies any injury, redness, fever, or change in sensation. Has a large amount of stool urgency that once resulted in incontinence because of no bathroom available. Has had this for years so takes a daily loperamide which allows her to have daily soft brown formed Bms without the urgency. Will still have some if she goes a long time before eating. Last colonoscopy was in 2021 and polyps removed and per patient was told to have 2 year follow up. Had an EGD earlier last year for difficulty swallowing without noted concerns. In 1997 had esophageal scar tissue removed as she was having difficulty swallowing at this time REVIEW OF SYSTEMS General: no fevers, no chills, no night sweats, no recurrent infections, no change in appetite, no change in energy, and no significant changes in weight Respiratory: no cough, no wheezing, no shortness of breath, no hemoptysis Cardiovascular: no chest pain, no chest pressure, no palpitations, and no swelling GI: No nausea, vomiting, or diarrhea Neurologic: No headache, weakness, numbness, tingling, dizziness, memory loss, syncope. PAST MEDICAL HISTORY Diagnosis Date Acute gastritis without mention of hemorrhage Allergic rhinitis, cause unspecified BMI 40.0-44.9, adult ([facility]) 08/02/2013 Cataract Corneal abrasion 20 y ago Depressive disorder, not elsewhere classified Diverticulosis of colon (without mention of hemorrhage) Elevated BP 08/04/15 Esophageal reflux Iron deficiency anemia, unspecified Ocular migraine Osteopenia PMH - PAST MEDICAL HISTORY OF schatski ring PAST SURGICAL HISTORY Procedure Laterality Date COLONOSCOPY FLX DX W/COLLJ SPEC WHEN PFRMD 10/12/07 DILATION & CURETTAGE DX&/THER NONOBSTETRIC 12/18/1985 Dilation & curettage EGD TRANSORAL BIOPSY SINGLE/MULTIPLE 10/12/07 LAPAROSCOPY SURG CHOLECYSTECTOMY 03/30/2013 SUTURE QUADRICEPS/HAMSTRING RUPTURE PRIMARY 08/09/2010 REPAIR QUADRICEPS performed by EVELINA CARVER at OR TONSILLECTOMY & ADENOIDECTOMY AGE 13/> T/A (over age 12 years) TOTAL ABDOMINAL HYSTERECT W/WO RMVL TUBE OVARY 10/20/2002 Hysterectomy, BETO left ovaries ALLERGIES Ced Inhibitors, Cats, Norvasc [Amlodipine Besylate], Poison Naina, Dust Mites, and Tree And Shrub Pollen MEDICATIONS losartan (COZAAR) 50 mg tablet TAKE 1 TABLET BY MOUTH TWICE DAILY loperamide HCl (IMODIUM) 2 mg tab Take 1 tablet by mouth as needed. acetaminophen (TYLENOL ARTHRITIS PAIN) 650 mg CR tablet Take 1 tablet by mouth every 8 hours as needed. clobetasol (TEMOVATE) 0.05 % ointment Apply half of one xypufs-rfg-cpmb to cover the affected area two days a week. omeprazole (PRILOSEC) 40 mg capsule TAKE 1 CAPSULE BY MOUTH ONCE DAILY estradiol (ESTRACE) 0.01 % (0.1 mg/gram) vaginal cream APPLY 1 GRAM OF CREAM TO LOWER VAGINA AND A PEA SIZED AMOUNT TO THE OPENING OF THE VAGINA 3 TIMES WEEKLY meloxicam (MOBIC) 15 mg tablet TAKE 1 TABLET BY MOUTH ONCE DAILY zolpidem (AMBIEN) 10 mg Use half to one tablet as needed. Ferrous Gluconate 225 mg (27 mg iron) tab Take 1 tablet by mouth once daily. MAGNESIUM ORAL Take by mouth. multivitamin with minerals (HAIR,SKIN AND NAILS ORAL) Take by mouth. calcium carbonate-vitamin D3 (OSCAL+D) 500 mg-10 mcg (400 unit) chewable tablet Take 1 tablet by mouth twice daily. Cholecalciferol, Vitamin D3, 50 mcg (2,000 unit) cap Take 1 capsule by mouth once daily. COMPOUNDED PRESCRIPTION Exercise 30 minutes daily 5 days weekly multivitamin tablet Take 1 tablet by mouth twice daily. loratadine(CLARITIN 10 MG TAB) Take one(1) tablet daily as needed for allergy symptoms. FAMILY HISTORY Problem Relation Age of Onset Heart Father thyroid cancer at age 39 other (Rheumatoid arthritis) Mother other (rheumatoid arthritis) Maternal Aunt other (rheumatoid arthritis) Maternal Aunt Social History Tobacco Use Smoking status: Never Smokeless tobacco: Never Vaping Use Vaping Use: Never used Substance Use Topics Alcohol use: No Drug use: No PHYSICAL EXAM BP 142/98 Pulse 102 Resp 16 Wt 106.1 kg (234 lb) SpO2 97% BMI 41.45 kg/m General Appearance: well appearing, in no acute distress, alert Skin: Skin color, texture, turgor normal for age; Eyes: conjunctiva pink and moist, no icterus, sclera white, non-injected Lungs: Lungs clear to auscultation. No wheezing, rhonchi, rales. Heart: RRR without murmur, gallop, or rubs. No ectopy Extremities: No deformities, edema, skin discoloration, clubbing or cyanosis. Good capillary refill. Musculoskeletal: Bilateral knee- No deformities noted on inspection. No Tenderness. Flexion:Limitation: No, Pain:No; Extension:Limitation:No, Pain:No. Laxity: No . Muscle strength- 5/5 lower, bilaterally Health maintenance reviewed with patient: BP CONTROLLED (<130/80) Never done ADVANCE DIRECTIVE DISCUSSION due on 10/20/2022 COVID-19 VACCINE(7 - Moderna series) due on 12/02/2022 INFLUENZA(1) due on 06/20/2023 MAMMOGRAM due on 04/14/2024 ANNUAL PCP TEAM CHRONIC DISEASE VISIT due on 05/16/2024 DTAP,TDAP,TD(2 - Td or Tdap) due on 09/26/2024 DIABETES SCREEN due on 06/24/2026 LIPID SCREEN due on 06/24/2028 COLORECTAL CANCER SCREENING due on 02/22/2032 BONE DENSITY Completed DEPRESSION ASSESSMENT Completed HEPATITIS C SCREENING Completed SHINGRIX VACCINE Completed PNEUMOCOCCAL: 65+ Completed DATA REVIEWED: Most recent labs ASSESSMENT/PLAN: 1. Essential hypertension - ICD9: 401.9, ICD10: I10 (primary diagnosis) - Controlled - Continue current medications - Recommend home blood pressure monitoring, to bring results to next visit - Encouraged sodium restriction, DASH or Mediterranean diet - Recommend regular aerobic exercise 2. Hypertriglyceridemia - ICD9: 272.1, ICD10: E78.1 - Worsening control - Continue current medications - Counseled on healthy diet and regular exercise - Discussed need for and benefit of weight loss. BMI 41.45 kg/(m^2) - TSH BLD 3. Chronic pain of both knees - ICD9: 719.46, 338.29, ICD10: M25.561, M25.562, G89.29 - no concerns on assessment - XR KNEE GENERAL 4V AP BOTH/PA BOTH/LAT/MERC BILATERAL - CONSULT TO PHYSICAL THERAPY 4. Balance problem - ICD9: 781.99, ICD10: R26.89 As above - XR KNEE GENERAL 4V AP BOTH/PA BOTH/LAT/MERC BILATERAL - CONSULT TO PHYSICAL THERAPY 5. Chronic diarrhea - ICD9: 787.91, ICD10: K52.9 - controlled with current treatment - continue with recommendations by GI Prescription instructions reviewed with patient as applicable. Potential red flag symptoms discussed with the patient. Reviewed appropriate action plan to take if red flag symptoms occur. Patient agreeable to treatment plan. Josselin Stevens APRN.CNP documented in this encounter [facility] 06-03-2023 Miscellaneous Notes Patient has been identified by name and date of : No Patient phones for refill(s): Requested Prescriptions Pending Prescriptions Disp Refills losartan (COZAAR) 50 mg tablet [Pharmacy Med Name: Losartan Potassium 50 MG Oral Tablet] 180 tablet 3 Sig: TAKE 1 TABLET BY MOUTH TWICE DAILY Date of last office visit in primary care: 05/16/23 Last 2 Encounter Wt Readings: Date: Wt: 12/12/2022 106.1 kg (234 lb) 07/23/2022 103.9 kg (229 lb) Previous labs/tests for medication: Blood Pressure: BUN (mg/dL) Date Value 12/06/2022 16 03/01/2021 15 Sodium (mmol/L) Date Value 12/06/2022 138 03/01/2021 141 Last 1 Encounter BP Readings: Date: BP: 12/12/2022 127/87[BP cece[ Please advise. Thank you. Sienna Cruz LPN documented in this encounter [facility] 05-16-2023 Note HNO ID: [id number] Author: Josselin Stevens APRN.SURGICAL ELASTIC KNITTER Service: ? Author Type: Nurse Practitioner Type: Progress Notes Filed: 05/16/2023 12:37 PM Note Text: This Team Access Model visit is a phone encounter. It required patient-provider interaction for the medical decision making as documented below. Patient agrees to the visit: Yes Patient Location: [place] CC: Patient presents with: COVID HPI Jessica Merrill is a 72 year old female who is contacted today for a phone visit. This is an established patient of Michelle Andrade MD. Was scheduled for virtual visit but patient with difficulty logging in so changed to phone visit. Patient tested positive for COVID on Friday. Symptoms have greatly improved but concerned with her being high risk she needs to still get paxlovid. Symptoms started on Friday with headache, sinus drainage, body aches, non productive cough but sometimes feels like there is phlegm when coughing, weakness, and diarrhea. Most symptoms have resolved except still with some sinus drainage and slight cough, but feels both symptoms have greatly improved. Denies any fever, chills, shortness of breath, nausea, wheezing, or chest pain. Has been taking over the counter cough medicine, REVIEW OF SYSTEMS General: no fevers, no chills, no night sweats, no recurrent infections, no change in appetite, no change in energy, and no significant changes in weight Respiratory: no wheezing, no shortness of breath, no hemoptysis Cardiovascular: no chest pain, no chest pressure, no palpitations, and no swelling GI: No nausea, vomiting, or diarrhea Neurologic: No headache, weakness, numbness, tingling, dizziness, memory loss, syncope. PAST MEDICAL HISTORY Diagnosis Date Acute gastritis without mention of hemorrhage Allergic rhinitis, cause unspecified BMI 40.0-44.9, adult ([facility]) 08/02/2013 Cataract Corneal abrasion 20 y ago Depressive disorder, not elsewhere classified Diverticulosis of colon (without mention of hemorrhage) Elevated BP 08/04/15 Esophageal reflux Iron deficiency anemia, unspecified Ocular migraine Osteopenia PMH - PAST MEDICAL HISTORY OF schatski ring PAST SURGICAL HISTORY Procedure Laterality Date COLONOSCOPY FLX DX W/COLLJ SPEC WHEN PFRMD 10/12/07 DILATION AND CURETTAGE DXAND/THER NONOBSTETRIC 12/18/1985 Dilation AND curettage EGD TRANSORAL BIOPSY SINGLE/MULTIPLE 10/12/07 LAPAROSCOPY SURG CHOLECYSTECTOMY 03/30/2013 SUTURE QUADRICEPS/HAMSTRING RUPTURE PRIMARY 08/09/2010 REPAIR QUADRICEPS performed by EVELINA CARVER at OR TONSILLECTOMY AND ADENOIDECTOMY AGE 13/> T/A (over age 12 years) TOTAL ABDOMINAL HYSTERECT W/WO RMVL TUBE OVARY 10/20/2002 Hysterectomy, BETO left ovaries ALLERGIES Ced Inhibitors, Cats, Norvasc [Amlodipine Besylate], Poison Naina, Dust Mites, and Tree And Shrub Pollen MEDICATIONS omeprazole (PRILOSEC) 40 mg capsule TAKE 1 CAPSULE BY MOUTH ONCE DAILY clobetasol (TEMOVATE) 0.05 % ointment Apply half of one ziklwn-zwi-fsqh to cover the affected area two days a week. losartan (COZAAR) 50 mg tablet Take 1 tablet by mouth twice daily. estradiol (ESTRACE) 0.01 % (0.1 mg/gram) vaginal cream APPLY 1 GRAM OF CREAM TO LOWER VAGINA AND A PEA SIZED AMOUNT TO THE OPENING OF THE VAGINA 3 TIMES WEEKLY meloxicam (MOBIC) 15 mg tablet TAKE 1 TABLET BY MOUTH ONCE DAILY zolpidem (AMBIEN) 10 mg Use half to one tablet as needed. Ferrous Gluconate 225 mg (27 mg iron) tab Take 1 tablet by mouth once daily. MAGNESIUM ORAL Take by mouth. multivitamin with minerals (HAIR,SKIN AND NAILS ORAL) Take by mouth. calcium carbonate-vitamin D3 (OSCAL+D) 500 mg-10 mcg (400 unit) chewable tablet Take 1 tablet by mouth twice daily. Cholecalciferol, Vitamin D3, 50 mcg (2,000 unit) cap Take 1 capsule by mouth once daily. COMPOUNDED PRESCRIPTION Exercise 30 minutes daily 5 days weekly multivitamin tablet Take 1 tablet by mouth twice daily. loratadine(CLARITIN 10 MG TAB) Take one(1) tablet daily as needed for allergy symptoms. FAMILY HISTORY Problem Relation Age of Onset Heart Father thyroid cancer at age 39 other (Rheumatoid arthritis) Mother other (rheumatoid arthritis) Maternal Aunt other (rheumatoid arthritis) Maternal Aunt Social History Tobacco Use Smoking status: Never Smokeless tobacco: Never Vaping Use Vaping Use: Never used Substance Use Topics Alcohol use: No Drug use: No EXAM: Deferred physical exam as visit was completed over the phone Patient is speaking in complete sentences without obvious respiratory distress or audible wheezing. DATA REVIEWED: Most recent labs BP CONTROLLED (<130/80) Never done ADVANCE DIRECTIVE DISCUSSION due on 10/20/2022 COVID-19 VACCINE(7 - Moderna series) due on 12/02/2022 INFLUENZA(1) due on 06/20/2023 ANNUAL PCP TEAM CHRONIC DISEASE VISIT due on 12/12/2023 MAMMOGRAM due on 04/14/2024 DTAP,TDAP,TD(2 - Td or Tdap) due on 09/26/2024 D (more content not included)... [facility] 05-16-2023 Instructions Josselin Stevens APRN.[facility] - 05/16/2023 12:11 PM EDT Images from the original note were not included. FACT SHEET FOR PATIENTS, PARENTS, AND CAREGIVERS EMERGENCY USE AUTHORIZATION (EUA) OF PAXLOVID FOR CORONAVIRUS DISEASE 2019 (COVID-19) You are being given this Fact Sheet because your healthcare provider believes it is necessary to provide you with PAXLOVID for the treatment of cwou-yq-yiflfqyr coronavirus disease (COVID-19) caused by the SARS-CoV-2 virus. This Fact Sheet contains information to help you understand the risks and benefits of taking the PAXLOVID you may receive. This Fact Sheet also contains information about how to take PAXLOVID and how to report side effects or problems with the appearance or packaging of PAXLOVID. The U.S. Food and Drug Administration (FDA) has issued an Emergency Use Authorization (EUA) to make PAXLOVID available for the treatment of zeuo-xi-kwcwlvbj COVID-19 in adults and children 12 years of age and older weighing at least 88 pounds (40 kg) who are at high risk for progression to severe COVID-19, including hospitalization or (for more details about an EUA please see What is an Emergency Use Authorization? at the end of this document). Read this Fact Sheet for information about PAXLOVID. Talk to your healthcare provider about your options or if you have any questions. It is your choice to take PAXLOVID. What is COVID-19? COVID-19 is caused by a virus called a coronavirus. You can get COVID-19 through close contact with another person who has the virus. COVID-19 illnesses have ranged from very tren-xa-gzuyjy, including illness resulting in . While information so far suggests that most COVID-19 illness is mild, serious illness can happen and may cause some of your other medical conditions to become worse. Older people and people of all ages with severe, long lasting (chronic) medical conditions like heart disease, lung disease, and diabetes, for example seem to be at higher risk of being hospitalized for COVID-19. What is PAXLOVID? PAXLOVID is a medicine that is available under EUA for the treatment of vrou-ev-etkuszip COVID-19 in adults and children 12 years of age and older weighing at least 88 pounds (40 kg) who are at high risk for progression to severe COVID-19, including hospitalization or . Although PAXLOVID is FDA-approved for the treatment of COVID-19 in certain adults (see section What other treatment choices are there?), PAXLOVID use in children remains investigational because it is still being studied. There is limited information about the safety and effectiveness of using PAXLOVID to treat children with lbqa-pa-qcbqedyw COVID-19. What is the most important information I should know about PAXLOVID? PAXLOVID can interact with other medicines causing severe or life-threatening side effects or . It is important to know the medicines that should not be taken with PAXLOVID. Do not take PAXLOVID if: you are taking any of the following medicines: o alfuzosin o amiodarone o apalutamide o carbamazepine o colchicine o dihydroergotamine o dronedarone o eletriptan o eplerenone o ergotamine o finerenone o flecainide o flibanserin o ivabradine o lomitapide o lovastatin o lumacaftor/ivacaftor o lurasidone o methylergonovine o midazolam (oral) o naloxegol o phenobarbital o phenytoin o pimozide o primidone o propafenone o quinidine o ranolazine o rifampin o rifapentine o Collins s Wort (hypericum perforatum) o sildenafil (Revatio ) for pulmonary arterial hypertension o silodosin o simvastatin o tolvaptan o triazolam o ubrogepant o voclosporin These are not the only medicines that may cause serious or life-threatening side effects if taken with PAXLOVID. PAXLOVID may increase or decrease the levels of multiple other medicines. It is very important to tell your healthcare provider about all of the medicines you are taking because additional laboratory tests or changes in the dose of your other medicines may be necessary during treatment with PAXLOVID. Your healthcare provider may also tell you about specific symptoms to watch out for that may indicate that you need to stop or decrease the dose of some of your other medicines. you are allergic to nirmatrelvir, ritonavir, or any of the ingredients in PAXLOVID. See the end of this leaflet for a complete list of ingredients in PAXLOVID. See What are the important possible side effects of PAXLOVID? for signs and symptoms of allergic reactions. What should I tell my healthcare provider before I take PAXLOVID? Tell your healthcare provider if you: have kidney problems. You may need a different dose of PAXLOVID. have liver problems, including hepatitis. have Human Immunodeficiency Virus 1 (HIV-1) infection. PAXLOVID may lead to some HIV-1 medicines not working as well in the future. are or plan to become . It is not known if PAXLOVID can harm your unborn baby. Tell your healthcare provider right away if you are or if you become . are or plan to breastfeed. It is not known if PAXLOVID can pass into your breast milk. Talk to your healthcare provider about the best way to feed your baby during treatment with PAXLOVID. Some medicines may interact with PAXLOVID and may cause serious side effects. Tell your healthcare provider about all the medicines you take, including prescription and xach-pvc-aangfci medicines, vitamins, and herbal supplements. Your healthcare provider can tell you if it is safe to take PAXLOVID with other medicines. You can ask your healthcare provider or pharmacist for a list of medicines that interact with PAXLOVID. Do not start taking a new medicine without telling your healthcare provider. Tell your healthcare provider if you are taking combined control (hormonal contraceptive). PAXLOVID may affect how your hormonal contraceptives work. Females who are able to become should use another effective alternative form of contraception or an additional barrier method of contraception during treatment with PAXLOVID. Talk to your healthcare provider if you have any questions about contraceptive methods that might be right for you. How do I take PAXLOVID? Take PAXLOVID exactly as your healthcare provider tells you to take it. PAXLOVID consists of 2 medicines: nirmatrelvir tablets and ritonavir tablets. The 2 medicines are taken together 2 times each day for 5 days. Nirmatrelvir is an oval, pink tablet. Ritonavir is a white or off-white tablet. PAXLOVID is available in 2 Dose Packs (see Figures A and B below). Your healthcare provider will prescribe the PAXLOVID Dose Pack that is right for you. If you have kidney disease, your healthcare provider may prescribe a lower dose (see Figure B). Talk to your healthcare provider to make sure you receive the correct Dose Pack. Do not remove your PAXLOVID tablets from the blister card before you are ready to take your dose. Take your first dose of PAXLOVID in the morning or evening, depending on when you greens picker your prescription, or as your healthcare provider tells you to. Swallow the tablets whole. Do not chew, break, or crush the tablets. Take PAXLOVID with or without food. Do not stop taking PAXLOVID without talking to your healthcare provider, even if you feel better. If you miss a dose of PAXLOVID within 8 hours of the time it is usually taken, take it as soon as you remember. If you miss a dose by more than 8 hours, skip the missed dose and take the next dose at your regular time. Do not take 2 doses of PAXLOVID at the same time. If you take too much PAXLOVID, call your healthcare provider or go to the nearest hospital emergency room right away. If you are taking a ritonavir- or cobicistat-containing medicine to treat hepatitis C or HIV-1 infection, you should continue to take your medicine as prescribed by your healthcare provider. Talk to your healthcare provider if you do not feel better or if you feel worse after 5 days. What are the important possible side effects of PAXLOVID? PAXLOVID may cause serious side effects, including: Allergic reactions, including severe allergic reactions (anaphylaxis) have happened during treatment with PAXLOVID. Stop taking PAXLOVID and get medical help right away if you get any of the following symptoms of an allergic reaction: o skin rash, hives, blisters or peeling skin o painful sores or ulcers in the mouth, nose, throat or genital area o swelling of the mouth, lips, tongue or face o trouble swallowing or breathing o throat tightness o hoarseness Liver Problems. Tell your healthcare provider right away if you get any of the following signs and symptoms of liver problems during treatment with PAXLOVID: o loss of appetite o yellowing of your skin and the white of eyes o dark-colored urine o pale colored stools o itchy skin o stomach-area (abdominal) pain The most common side effects of PAXLOVID include: altered sense of taste and diarrhea. Other possible side effects include: headache vomiting abdominal pain nausea high blood pressure feeling generally unwell These are not all the possible side effects of PAXLOVID. For more information, ask your healthcare provider or pharmacist. What other treatment choices are there? PAXLOVID is FDA-approved for the treatment of pfck-uv-kszfzhah COVID-19 in certain adults; however, there are not sufficient quantities of the approved presentations (i.e., dose packs) of PAXLOVID at this time. This EUA continues to authorize the emergency use of PAXLOVID for the approved patient population to ensure continued access in order to meet the public health need. VEKLURY (remdesivir) is FDA-approved for the treatment of annk-ou-apyeumrf COVID-19 in certain adults and children. Talk with your healthcare provider to see if VEKLURY is appropriate for you. For information on the emergency use of other medicines that are authorized by FDA to treat people with COVID-19, please go to https://www.fda.gov/emergency-prep pkczqsrk-kbw-ginhwhrx/dpp-nkfrw-mw edoytknq-iot-sbaxvv-framework/terry udyse-xyn-rntdgrsqpwvtz. Your healthcare provider may talk with you about clinical trials for which you may be eligible. It is your choice to be treated or not to be treated with PAXLOVID. Should you decide not to receive it or for your child not to receive it, it will not change your standard medical care. What if I am or ? There is limited experience treating women or mothers with PAXLOVID. For a mother and unborn baby, the benefit of taking PAXLOVID may be greater than the risk from the treatment. If you are , discuss your options and specific situation with your healthcare provider. If you are , discuss your options and specific situation with your healthcare provider. How do I report side effects or problems with the appearance or packaging of PAXLOVID? Contact your healthcare provider if you have any side effects that bother you or do not go away. Report side effects or problems with the appearance or packaging of PAXLOVID (see Figures A and B above for examples of PAXLOVID Dose Packs) to FDA MedWatch at www.fda.gov/medwatch or call 8-890-HJM-7380 or you can report side effects to [employer]. at the contact information provided below. How should I store PAXLOVID? Store PAXLOVID tablets at room temperature, between 68?F to 77?F (20?C to 25?C). Keep PAXLOVID and all medicines out of the reach of children. What if I have questions about the expiration date for my PAXLOVID? The FDA has extended the expiration date (shelf-life) for some lots of PAXLOVID. To find the extended expiration date, enter the lot number found on the side of carton or bottom of blister pack at this website: [email or web address]://www.[employer].LocalMed/ or talk with your healthcare provider. Information on the authorized shelf-life extensions for PAXLOVID may also be found at https://www.fda.gov/emergency-prep wbahlgrm-zeg-cvoamoyt/lyq-pdwiw-ay ljlvtkqz-bnr-hdkdbn-framework/expi qnfbvr-movprj-xgstfqnwl. How can I learn more about COVID-19? Ask your healthcare provider. Visit https://www.cdc.gov/COVID19. Contact your local or state public health department. What is an Emergency Use Authorization (EUA)? The [place] FDA has made PAXLOVID available under an emergency access mechanism called an Emergency Use Authorization (EUA). The EUA is supported by a [employer] of Health and Human Services ([facility]) declaration that circumstances exist to justify the emergency use of drugs and biological products during the COVID-19 pandemic. In issuing an EUA, the FDA has determined, among other things, that based on the total amount of scientific evidence available including data from adequate and well-controlled clinical trials, if available, it is reasonable to believe that the product may be effective for diagnosing, treating, or preventing COVID-19, or a serious or life-threatening disease or condition caused by COVID-19; that the known and potential benefits of the product, when used to diagnose, treat, or prevent such disease or condition, outweigh the known and potential risks of such product; and that there are no adequate, approved, and available alternatives. All of these criteria must be met to allow for the product to be available under an EUA. The EUA for PAXLOVID is in effect for the duration of the COVID-19 declaration justifying emergency use of this product, unless the relevant EUA declaration is terminated or the EUA revoked (after which the products may no longer be used under the EUA). What are the ingredients in PAXLOVID? Active ingredient: nirmatrelvir and ritonavir Nirmatrelvir inactive ingredients: colloidal silicon dioxide, croscarmellose sodium, lactose monohydrate, microcrystalline cellulose, and sodium stearyl fumarate. Film-coating contains: hydroxy propyl methylcellulose, iron oxide red, polyethylene glycol, and titanium dioxide. Ritonavir inactive ingredients: anhydrous dibasic calcium phosphate, colloidal silicon dioxide, copovidone, sodium stearyl fumarate, and sorbitan monolaurate. The film coating may contain: colloidal anhydrous silica, colloidal silicon dioxide, hydroxypropyl cellulose, hypromellose, polyethylene glycol, polysorbate 80, talc, and titanium dioxide. Additional Information For general questions, visit the website or call the telephone number provided below. Website: [email or web address] Telephone number: ([phone]-c19-PACK) Distributed by [employer] [place] [address] [id number] Revised: 02/2023 FACT SHEET FOR PATIENTS, PARENTS, AND CAREGIVERS EMERGENCY USE AUTHORIZATION (EUA) OF PAXLOVID FOR CORONAVIRUS DISEASE 2019 (COVID-19) You are being given this Fact Sheet because your healthcare provider believes it is necessary to provide you with PAXLOVID for the treatment of qyft-qa-qrcqhagn coronavirus disease (COVID-19) caused by the SARS-CoV-2 virus. This Fact Sheet contains information to help you understand the risks and benefits of taking the PAXLOVID you may receive. This Fact Sheet also contains information about how to take PAXLOVID and how to report side effects or problems with the appearance or packaging of PAXLOVID. The U.S. Food and Drug Administration (FDA) has issued an Emergency Use Authorization (EUA) to make PAXLOVID available for the treatment of fewb-dn-hztrvqqy COVID-19 in adults and children 12 years of age and older weighing at least 88 pounds (40 kg) who are at high risk for progression to severe COVID-19, including hospitalization or (for more details about an EUA please see What is an Emergency Use Authorization? at the end of this document). Read this Fact Sheet for information about PAXLOVID. Talk to your healthcare provider about your options or if you have any questions. It is your choice to take PAXLOVID. What is COVID-19? COVID-19 is caused by a virus called a coronavirus. You can get COVID-19 through close contact with another person who has the virus. COVID-19 illnesses have ranged from very igji-cf-jxrpio, including illness resulting in . While information so far suggests that most COVID-19 illness is mild, serious illness can happen and may cause some of your other medical conditions to become worse. Older people and people of all ages with severe, long lasting (chronic) medical conditions like heart disease, lung disease, and diabetes, for example seem to be at higher risk of being hospitalized for COVID-19. What is PAXLOVID? PAXLOVID is a medicine that is available under EUA for the treatment of wpnl-pz-aokvvfen COVID-19 in adults and children 12 years of age and older weighing at least 88 pounds (40 kg) who are at high risk for progression to severe COVID-19, including hospitalization or . Although PAXLOVID is FDA-approved for the treatment of COVID-19 in certain adults (see section What other treatment choices are there?), PAXLOVID use in children remains investigational because it is still being studied. There is limited information about the safety and effectiveness of using PAXLOVID to treat children with kbvb-da-dgywzlxu COVID-19. What is the most important information I should know about PAXLOVID? PAXLOVID can interact with other medicines causing severe or life-threatening side effects or . It is important to know the medicines that should not be taken with PAXLOVID. Do not take PAXLOVID if: you are taking any of the following medicines: o alfuzosin o amiodarone o apalutamide o carbamazepine o colchicine o dihydroergotamine o dronedarone o eletriptan o eplerenone o ergotamine o finerenone o flecainide o flibanserin o ivabradine o lomitapide o lovastatin o lumacaftor/ivacaftor o lurasidone o methylergonovine o midazolam (oral) o naloxegol o phenobarbital o phenytoin o pimozide o primidone o propafenone o quinidine o ranolazine o rifampin o rifapentine o [place] s Wort (hypericum perforatum) o sildenafil (Revatio ) for pulmonary arterial hypertension o silodosin o simvastatin o tolvaptan o triazolam o ubrogepant o voclosporin These are not the only medicines that may cause serious or life-threatening side effects if taken with PAXLOVID. PAXLOVID may increase or decrease the levels of multiple other medicines. It is very important to tell your healthcare provider about all of the medicines you are taking because additional laboratory tests or changes in the dose of your other medicines may be necessary during treatment with PAXLOVID. Your healthcare provider may also tell you about specific symptoms to watch out for that may indicate that you need to stop or decrease the dose of some of your other medicines. you are allergic to nirmatrelvir, ritonavir, or any of the ingredients in PAXLOVID. See the end of this leaflet for a complete list of ingredients in PAXLOVID. See What are the important possible side effects of PAXLOVID? for signs and symptoms of allergic reactions. What should I tell my healthcare provider before I take PAXLOVID? Tell your healthcare provider if you: have kidney problems. You may need a different dose of PAXLOVID. have liver problems, including hepatitis. have Human Immunodeficiency Virus 1 (HIV-1) infection. PAXLOVID may lead to some HIV-1 medicines not working as well in the future. are or plan to become . It is not known if PAXLOVID can harm your unborn baby. Tell your healthcare provider right away if you are or if you become . are or plan to breastfeed. It is not known if PAXLOVID can pass into your breast milk. Talk to your healthcare provider about the best way to feed your baby during treatment with PAXLOVID. Some medicines may interact with PAXLOVID and may cause serious side effects. Tell your healthcare provider about all the medicines you take, including prescription and bydn-uot-suosvzp medicines, vitamins, and herbal supplements. Your healthcare provider can tell you if it is safe to take PAXLOVID with other medicines. You can ask your healthcare provider or pharmacist for a list of medicines that interact with PAXLOVID. Do not start taking a new medicine without telling your healthcare provider. Tell your healthcare provider if you are taking combined control (hormonal contraceptive). PAXLOVID may affect how your hormonal contraceptives work. Females who are able to become should use another effective alternative form of contraception or an additional barrier method of contraception during treatment with PAXLOVID. Talk to your healthcare provider if you have any questions about contraceptive methods that might be right for you. How do I take PAXLOVID? Take PAXLOVID exactly as your healthcare provider tells you to take it. PAXLOVID consists of 2 medicines: nirmatrelvir tablets and ritonavir tablets. The 2 medicines are taken together 2 times each day for 5 days. Nirmatrelvir is an oval, pink tablet. Ritonavir is a white or off-white tablet. PAXLOVID is available in 2 Dose Packs (see Figures A and B below). Your healthcare provider will prescribe the PAXLOVID Dose Pack that is right for you. If you have kidney disease, your healthcare provider may prescribe a lower dose (see Figure B). Talk to your healthcare provider to make sure you receive the correct Dose Pack. Do not remove your PAXLOVID tablets from the blister card before you are ready to take your dose. Take your first dose of PAXLOVID in the morning or evening, depending on when you greens picker your prescription, or as your healthcare provider tells you to. Swallow the tablets whole. Do not chew, break, or crush the tablets. Take PAXLOVID with or without food. Do not stop taking PAXLOVID without talking to your healthcare provider, even if you feel better. If you miss a dose of PAXLOVID within 8 hours of the time it is usually taken, take it as soon as you remember. If you miss a dose by more than 8 hours, skip the missed dose and take the next dose at your regular time. Do not take 2 doses of PAXLOVID at the same time. If you take too much PAXLOVID, call your healthcare provider or go to the nearest hospital emergency room right away. If you are taking a ritonavir- or cobicistat-containing medicine to treat hepatitis C or HIV-1 infection, you should continue to take your medicine as prescribed by your healthcare provider. Talk to your healthcare provider if you do not feel better or if you feel worse after 5 days. What are the important possible side effects of PAXLOVID? PAXLOVID may cause serious side effects, including: Allergic reactions, including severe allergic reactions (anaphylaxis) have happened during treatment with PAXLOVID. Stop taking PAXLOVID and get medical help right away if you get any of the following symptoms of an allergic reaction: o skin rash, hives, blisters or peeling skin o painful sores or ulcers in the mouth, nose, throat or genital area o swelling of the mouth, lips, tongue or face o trouble swallowing or breathing o throat tightness o hoarseness Liver Problems. Tell your healthcare provider right away if you get any of the following signs and symptoms of liver problems during treatment with PAXLOVID: o loss of appetite o yellowing of your skin and the white of eyes o dark-colored urine o pale colored stools o itchy skin o stomach-area (abdominal) pain The most common side effects of PAXLOVID include: altered sense of taste and diarrhea. Other possible side effects include: headache vomiting abdominal pain nausea high blood pressure feeling generally unwell These are not all the possible side effects of PAXLOVID. For more information, ask your healthcare provider or pharmacist. What other treatment choices are there? PAXLOVID is FDA-approved for the treatment of syhm-bc-fzmzxxuf COVID-19 in certain adults; however, there are not sufficient quantities of the approved presentations (i.e., dose packs) of PAXLOVID at this time. This EUA continues to authorize the emergency use of PAXLOVID for the approved patient population to ensure continued access in order to meet the public health need. VEKLURY (remdesivir) is FDA-approved for the treatment of ttxx-ur-mgszxayl COVID-19 in certain adults and children. Talk with your healthcare provider to see if VEKLURY is appropriate for you. For information on the emergency use of other medicines that are authorized by FDA to treat people with COVID-19, please go to https://www.fda.gov/emergency-prep qqoqksoh-oze-avzlzrhw/nwh-kkbsg-lp dgzattbx-klk-uhrmig-framework/terry csezo-yko-hswhukwcuriup. Your healthcare provider may talk with you about clinical trials for which you may be eligible. It is your choice to be treated or not to be treated with PAXLOVID. Should you decide not to receive it or for your child not to receive it, it will not change your standard medical care. What if I am or ? There is limited experience treating women or mothers with PAXLOVID. For a mother and unborn baby, the benefit of taking PAXLOVID may be greater than the risk from the treatment. If you are , discuss your options and specific situation with your healthcare provider. If you are , discuss your options and specific situation with your healthcare provider. How do I report side effects or problems with the appearance or packaging of PAXLOVID? Contact your healthcare provider if you have any side effects that bother you or do not go away. Report side effects or problems with the appearance or packaging of PAXLOVID (see Figures A and B above for examples of PAXLOVID Dose Packs) to FDA MedWatch at www.fda.gov/medwatch or call 5-935-WGJ-2851 or you can report side effects to [facility]. at the contact information provided below. How should I store PAXLOVID? Store PAXLOVID tablets at room temperature, between 68?F to 77?F (20?C to 25?C). Keep PAXLOVID and all medicines out of the reach of children. What if I have questions about the expiration date for my PAXLOVID? The FDA has extended the expiration date (shelf-life) for some lots of PAXLOVID. To find the extended expiration date, enter the lot number found on the side of carton or bottom of blister pack at this website: https://www.paxlovidlotexDemdex.LocalMed/ or talk with your healthcare provider. Information on the authorized shelf-life extensions for PAXLOVID may also be found at https://www.fda.gov/emergency-prep cugjbjtj-ivx-ojgqnoed/cio-bzcyx-ug obympovq-ynf-anvhxa-framework/expi dwwths-syaeyi-oeisdewaf. How can I learn more about COVID-19? Ask your healthcare provider. Visit https://www.cdc.gov/COVID19. Contact your local or state public health department. What is an Emergency Use Authorization (EUA)? The [place] FDA has made PAXLOVID available under an emergency access mechanism called an Emergency Use Authorization (EUA). The EUA is supported by a [place] of Health and Human Services (HHS) declaration that circumstances exist to justify the emergency use of drugs and biological products during the COVID-19 pandemic. In issuing an EUA, the FDA has determined, among other things, that based on the total amount of scientific evidence available including data from adequate and well-controlled clinical trials, if available, it is reasonable to believe that the product may be effective for diagnosing, treating, or preventing COVID-19, or a serious or life-threatening disease or condition caused by COVID-19; that the known and potential benefits of the product, when used to diagnose, treat, or prevent such disease or condition, outweigh the known and potential risks of such product; and that there are no adequate, approved, and available alternatives. All of these criteria must be met to allow for the product to be available under an EUA. The EUA for PAXLOVID is in effect for the duration of the COVID-19 declaration justifying emergency use of this product, unless the relevant EUA declaration is terminated or the EUA revoked (after which the products may no longer be used under the EUA). What are the ingredients in PAXLOVID? Active ingredient: nirmatrelvir and ritonavir Nirmatrelvir inactive ingredients: colloidal silicon dioxide, croscarmellose sodium, lactose monohydrate, microcrystalline cellulose, and sodium stearyl fumarate. Film-coating contains: hydroxy propyl methylcellulose, iron oxide red, polyethylene glycol, and titanium dioxide. Ritonavir inactive ingredients: anhydrous dibasic calcium phosphate, colloidal silicon dioxide, copovidone, sodium stearyl fumarate, and sorbitan monolaurate. The film coating may contain: colloidal anhydrous silica, colloidal silicon dioxide, hydroxypropyl cellulose, hypromellose, polyethylene glycol, polysorbate 80, talc, and titanium dioxide. Additional Information For general questions, visit the website or call the telephone number provided below. Website: [email or web address] Telephone number: ([phone]-L35-PACK) Distributed by [employer] [place] [address] [id number] Revised: 02/2023 documented in this encounter [facility] 05-16-2023 History of Present illness Narrative This Team Access Model visit is a phone encounter. It required patient-provider interaction for the medical decision making as documented below. Patient agrees to the visit: Yes Patient Location: [place] CC: Patient presents with: COVID HPI Jessica Merrill is a 72 year old female who is contacted today for a phone visit. This is an established patient of Michelle Andrade MD. Was scheduled for virtual visit but patient with difficulty logging in so changed to phone visit. Patient tested positive for COVID on Friday. Symptoms have greatly improved but concerned with her being high risk she needs to still get paxlovid. Symptoms started on Friday with headache, sinus drainage, body aches, non productive cough but sometimes feels like there is phlegm when coughing, weakness, and diarrhea. Most symptoms have resolved except still with some sinus drainage and slight cough, but feels both symptoms have greatly improved. Denies any fever, chills, shortness of breath, nausea, wheezing, or chest pain. Has been taking over the counter cough medicine, REVIEW OF SYSTEMS General: no fevers, no chills, no night sweats, no recurrent infections, no change in appetite, no change in energy, and no significant changes in weight Respiratory: no wheezing, no shortness of breath, no hemoptysis Cardiovascular: no chest pain, no chest pressure, no palpitations, and no swelling GI: No nausea, vomiting, or diarrhea Neurologic: No headache, weakness, numbness, tingling, dizziness, memory loss, syncope. PAST MEDICAL HISTORY Diagnosis Date Acute gastritis without mention of hemorrhage Allergic rhinitis, cause unspecified BMI 40.0-44.9, adult ([facility]) 08/02/2013 Cataract Corneal abrasion 20 y ago Depressive disorder, not elsewhere classified Diverticulosis of colon (without mention of hemorrhage) Elevated BP 08/04/15 Esophageal reflux Iron deficiency anemia, unspecified Ocular migraine Osteopenia PMH - PAST MEDICAL HISTORY OF schatski ring PAST SURGICAL HISTORY Procedure Laterality Date COLONOSCOPY FLX DX W/COLLJ SPEC WHEN PFRMD 10/12/07 DILATION & CURETTAGE DX&/THER NONOBSTETRIC 12/18/1985 Dilation & curettage EGD TRANSORAL BIOPSY SINGLE/MULTIPLE 10/12/07 LAPAROSCOPY SURG CHOLECYSTECTOMY 03/30/2013 SUTURE QUADRICEPS/HAMSTRING RUPTURE PRIMARY 08/09/2010 REPAIR QUADRICEPS performed by EVELINA CARVER at OR TONSILLECTOMY & ADENOIDECTOMY AGE 13/> T/A (over age 12 years) TOTAL ABDOMINAL HYSTERECT W/WO RMVL TUBE OVARY 10/20/2002 Hysterectomy, BETO left ovaries ALLERGIES Ced Inhibitors, Cats, Norvasc [Amlodipine Besylate], Poison Naina, Dust Mites, and Tree And Shrub Pollen MEDICATIONS omeprazole (PRILOSEC) 40 mg capsule TAKE 1 CAPSULE BY MOUTH ONCE DAILY clobetasol (TEMOVATE) 0.05 % ointment Apply half of one nhzauk-afn-rhwv to cover the affected area two days a week. losartan (COZAAR) 50 mg tablet Take 1 tablet by mouth twice daily. estradiol (ESTRACE) 0.01 % (0.1 mg/gram) vaginal cream APPLY 1 GRAM OF CREAM TO LOWER VAGINA AND A PEA SIZED AMOUNT TO THE OPENING OF THE VAGINA 3 TIMES WEEKLY meloxicam (MOBIC) 15 mg tablet TAKE 1 TABLET BY MOUTH ONCE DAILY zolpidem (AMBIEN) 10 mg Use half to one tablet as needed. Ferrous Gluconate 225 mg (27 mg iron) tab Take 1 tablet by mouth once daily. MAGNESIUM ORAL Take by mouth. multivitamin with minerals (HAIR,SKIN AND NAILS ORAL) Take by mouth. calcium carbonate-vitamin D3 (OSCAL+D) 500 mg-10 mcg (400 unit) chewable tablet Take 1 tablet by mouth twice daily. Cholecalciferol, Vitamin D3, 50 mcg (2,000 unit) cap Take 1 capsule by mouth once daily. COMPOUNDED PRESCRIPTION Exercise 30 minutes daily 5 days weekly multivitamin tablet Take 1 tablet by mouth twice daily. loratadine(CLARITIN 10 MG TAB) Take one(1) tablet daily as needed for allergy symptoms. FAMILY HISTORY Problem Relation Age of Onset Heart Father thyroid cancer at age 39 other (Rheumatoid arthritis) Mother other (rheumatoid arthritis) Maternal Aunt other (rheumatoid arthritis) Maternal Aunt Social History Tobacco Use Smoking status: Never Smokeless tobacco: Never Vaping Use Vaping Use: Never used Substance Use Topics Alcohol use: No Drug use: No EXAM: Deferred physical exam as visit was completed over the phone Patient is speaking in complete sentences without obvious respiratory distress or audible wheezing. DATA REVIEWED: Most recent labs BP CONTROLLED (<130/80) Never done ADVANCE DIRECTIVE DISCUSSION due on 10/20/2022 COVID-19 VACCINE(7 - Moderna series) due on 12/02/2022 INFLUENZA(1) due on 06/20/2023 ANNUAL PCP TEAM CHRONIC DISEASE VISIT due on 12/12/2023 MAMMOGRAM due on 04/14/2024 DTAP,TDAP,TD(2 - Td or Tdap) due on 09/26/2024 DIABETES SCREEN due on 12/06/2025 LIPID SCREEN due on 12/06/2027 COLORECTAL CANCER SCREENING due on 02/22/2032 BONE DENSITY Completed DEPRESSION ASSESSMENT Completed HEPATITIS C SCREENING Completed SHINGRIX VACCINE Completed PNEUMOCOCCAL: 65+ Completed ASSESSMENT/PLAN: 1. COVID - ICD9: 079.89, ICD10: U07.1 (primary diagnosis) - patient a candidate for paxlovid. , no contraindications - paxlovid prescribed and patient instructed to start today - follow up in 3-5 days if no improvement or for any worsening symptoms. - go to ER for shortness of breath, chest pain, confusion, or any other urgent concerns. 2. Essential hypertension - ICD9: 401.9, ICD10: I10 - not reviewed today. Labs ordered to be completed and reviewed at upcoming routing appointment. - CBC + DIFF - COMP METABOLIC PANEL 3. Hypertriglyceridemia - ICD9: 272.1, ICD10: E78.1 - not reviewed today. Labs ordered to be completed and reviewed at upcoming routing appointment. - LIPID PANEL BASIC - COMP METABOLIC PANEL Prescription instructions reviewed with patient as applicable. Potential red flag symptoms discussed with the patient. Reviewed appropriate action plan to take if red flag symptoms occur. Patient agreeable to treatment plan. During this patient visit I have spent approximately 20 minutes in counseling regarding treatment options, medications, and coordinating care. Josselin Stevens APRN.HERACLIO Nirmatrelvir/Ritonavir (Paxlovid) Eligibility and Patient Discussion [facility] Formulary Restriction Criteria: Adult outpatients 18 years and older with ALL of the following: [x] Patient has symptoms for 5 days or less [x] Not requiring hospitalization at any time for management of COVID-19 [x] Not requiring supplemental oxygen or a change in baseline supplemental oxygen [x] Not utilized for pre-exposure or post-exposure prophylaxis for prevention of COVID-19 [x] Patient does not have severe renal impairment (eGFR < 30 mL/min) or severe hepatic impairment (Child-George Class C) [x] Meeting at least one of the criteria for high risk of progression to severe COVID-19: [x] Age over 65 years [] Cancer [] Chronic kidney disease [] Chronic liver disease [] Chronic lung diseases, including cystic fibrosis [] Dementia or other neurological conditions [] Diabetes (type 1 or type 2) [] Disabilities, including Down syndrome and neurodevelopmental disorders [x] Heart conditions [] HIV infection [] Immunocompromised state [] Mental health conditions [] Medical related technological dependence (tracheostomy, gastrostomy, or positive pressure ventilation (not related to COVID) [x] Overweight and obesity (BMI greater or equal to 25 for adults) [] Physical inactivity [] [] Sickle cell disease or thalassemia [] Smoking, current or former [] Solid organ or blood stem cell transplant [] Stroke or cerebrovascular disease [] Substance use disorders [] Tuberculosis [] People from racial and ethnic minority groups Criteria above are met: Yes Date of Symptom Onset: 05/12/23 Patient received COVID vaccine: Yes Drug-Drug interactions reviewed: Yes. No drug interactions were identified. I have discussed the use of the investigational therapeutic, nirmatrelvir/ritonavir, for the treatment of mild to moderate COVID-19 and its use under Emergency Use Authorization with the patient. The patient was informed that nirmatrelvir/ritonavir is not an FDA approved drug and that it is authorized for use under this Emergency Use Authorization. The patient was also informed of the significant known benefits and potential risks of nirmatrelvir/ritonavir, and the extent to which such potential risks and benefits are unknown. The patient was informed that there is mandatory reporting of all medication errors and serious adverse events potentially related to nirmatrelvir/ritonavir treatment within 7 calendar days from the onset of the event and that events up to 28 days after completion of therapy need to be reported. The discussion included alternatives to receiving nirmatrelvir/ritonavir, including clinical trials, and potential the risks and benefits of those alternatives. The patient was provided electronically with the Fact Sheet for Patients, Parents and Caregivers . The patient was also instructed that in addition to the treatment with nirmatrelvir/ritonavir, he/she should continue to self-isolate and use infection control measures (e.g., wear mask, isolate, social distance, avoid sharing personal items, clean and disinfect high touch surfaces, and frequent handwashing) according to CDC guidelines. The patient stated understanding and gave verbal consent to proceeding with nirmatrelvir/ritonavir treatment. Josselin Stevens APRN.CNP May 16, 2023 12:13 PM documented in this encounter [facility] 05-14-2023 Miscellaneous Notes Noted Josselin Stevens APRN.CNP Pt called in and reports she thought she started with a cold yesterday, but today she began getting a headache and tested positive for Covid. Pt was offered a VV for antivirals and she declines. She was given home isolation and quarantine information, as well as red flags to watch for that would warrant an ER visit. Pt reports she has been taking Severe cold and flu along with Tylenol arthritis. Warned Pt to make sure she keeps track of how much Tylenol she is using. Beginning Home Isolation Isolation is used to separate people infected with SARS-CoV-2, the virus that causes COVID-19, from people who are not infected. People who are in isolation should stay home until it s safe for them to be around others. In the home, anyone sick or infected should separate themselves from others by staying in a specific sick room or area and using a separate bathroom (if available). Isolation or Quarantine: What's the difference? Quarantine keeps someone who might have been exposed to the virus away from others. Isolation keeps someone who is infected with the virus away from others, even in their home. Who needs to isolate People who have COVID-19 People who have symptoms of COVID-19 and are able to recover at home People who have no symptoms (are asymptomatic) but have tested positive for infection with SARS-CoV-2 Steps to take Stay home except to get medical care Monitor your symptoms. Stay in a separate room from other household members, if possible Use a separate bathroom, if possible Avoid contact with other members of the household and pets Don t share personal household items, like cups, towels, and utensils Wear a mask when around other people, if you are able to When to seek emergency medical attention Look for emergency warning signs* for COVID-19. If someone is showing any of these signs, seek emergency medical care immediately: Trouble breathing Persistent pain or pressure in the chest New confusion Inability to wake or stay awake Bluish lips or face *This list is not all possible symptoms. Please call your medical provider for any other symptoms that are severe or concerning to you. Call 911 or call ahead to your local emergency facility: Notify the lithographing machine operator that you are seeking care for someone who has or may have COVID-19. Ending Home Isolation - When you can be around others after you had or likely had COVID-19 When you can be around others after you had or likely had COVID-19 If You Test Positive for COVID-19 (Isolation) Everyone, regardless of vaccination status: Stay home for 5 days. Note: Day 0 is your first day of symptoms or the date of collection of a positive viral test if no symptoms. Day 1 is the first full day after symptoms developed or test specimen was collected. If you have no symptoms or your symptoms are resolving after 5 days, you can leave your house. Continue to wear a mask around others for 5 additional days. If you have a fever, continue to stay home until your fever resolves, even if it is longer than 5 days. If You Were Exposed to Someone with COVID-19 (Quarantine) If you: 1. Have been boosted OR 2. Completed the primary series of Pfizer or Moderna vaccine within the last 6 months OR 3. Completed the primary series of J&J vaccine within the last 2 months THEN: 1. Wear a mask around others for 10 days. 2. Test on day 5, if possible. If you develop symptoms get a test and stay home. If You Were Exposed to Someone with COVID-19 (Quarantine) If you: 1. Completed the primary series of Pfizer or Moderna vaccine over 6 months ago and are not boosted OR 2. Completed the primary series of J&J over 2 months ago and are not boosted OR 3. Are unvaccinated THEN: 1. Stay home for 5 days. After that continue to wear a mask around others for 5 additional days. 2. If you can't quarantine you must wear a mask for 10 days. 3. Test on day 5 if possible. If you develop symptoms get a test and stay home. I had COVID-19 or I tested positive for COVID-19 and I have a weakened immune system If you have a weakened immune system (immunocompromised) due to a health condition or medication, you might need to stay home and isolate longer than 10 days. Talk to your healthcare provider for more information. Your doctor may work with an infectious disease expert at your local health department to determine when you can be around others. documented in this encounter [facility] 04-30-2023 Miscellaneous Notes Patient called. She is needing her RX to go to [facility] not [facility]. Can you please cancel previous RX in SW's absence. Thank you. Requested Prescriptions Pending Prescriptions Disp Refills clobetasol (TEMOVATE) 0.05 % ointment 60 g 3 Sig: Apply half of one [id number] to cover the affected area two days a week. Karina Stanley RN documented in this encounter [facility] 04-28-2023 Miscellaneous Notes Please see pt's [employer] message and further advise. Pt was last seen in the office on 02/08/22. Please advise. Natalie Sanford LPN documented in this encounter [facility] 04-14-2023 Miscellaneous Notes April 16, 2023 PID: [id number] Jessica Merrill [address] [place] [id number] Dear Ms. Merrill, We are pleased to inform you that the results of your recent breast imaging exam on 04/14/2023 are normal. Early detection of cancer is very important. We also understand recommendations regarding breast cancer screening are controversial. Please discuss with your primary care provider which strategy is best for you and whether a mammogram is right for you. Your imaging studies and report will be kept on file at [facility] as part of your permanent medical record and are available for your continuing care. Thank you for allowing us to help in meeting your health care needs. Sincerely, Dr. Cotton Interpreting Radiologist [facility] (Normal over 40) documented in this encounter [facility] 02-28-2023 Miscellaneous Notes Patient has been identified by name and date of : No Patient phones for refill(s): Requested Prescriptions Pending Prescriptions Disp Refills omeprazole (PRILOSEC) 40 mg capsule [Pharmacy Med Name: Omeprazole 40 MG Oral Capsule Delayed Release] 90 capsule 3 Sig: TAKE 1 CAPSULE BY MOUTH ONCE DAILY Date of last office visit in primary care: 12/12/22 Last 2 Encounter Wt Readings: Date: Wt: 12/12/2022 106.1 kg (234 lb) 07/23/2022 103.9 kg (229 lb) Previous labs/tests for medication: Not applicable Please advise. Thank you. Sienna Cruz LPN documented in this encounter [facility] 01-15-2023 Note Patient Outreach (IN [facility]) JESSICA MERRILL ([id number]) 1950 F REJI Date Time Provider Department 01/15/23 MICHELLE GARCIA During your visit today, we recorded the following information about you: Allergies As of Date: 01/15/2023 Noted Allergy Reaction CED INHIBITORS 11/18/2017 3 - Cough CATS 11/30/2019 14 - Other: See Comments NORVASC (AMLODIPINE BESYLATE) 08/14/2016 5 - Intolerance Comments: Lower extremity swelling POISON NAINA 04/06/2015 14 - Other: See Comments Comments: Spreads all over body. DUST MITES 03/06/2021 14 - Other: See Comments Comments: Sneezing, sore throat, burning eyes TREE AND SHRUB POLLEN 03/06/2021 9 - Itching Comments: Itching in eyes and arms Date Reviewed: 12/12/2022 Reviewed by: Aleah Segura LPN - Fully Assessed Visit Diagnosis:Encounter for screening mammogram for breast cancer [Z12.31] Order(s):[facility] SCREENING [[id number]] Order #: [id number] FUTURE Prescriptions as of 01/20/2023 - losartan (COZAAR) 50 mg tablet Take 1 tablet by mouth twice daily. - estradiol (ESTRACE) 0.01 % (0.1 mg/gram) vaginal cream APPLY 1 GRAM OF CREAM TO LOWER VAGINA AND A PEA SIZED AMOUNT TO THE OPENING OF THE VAGINA 3 TIMES WEEKLY - meloxicam (MOBIC) 15 mg tablet TAKE 1 TABLET BY MOUTH ONCE DAILY - zolpidem (AMBIEN) 10 mg Use half to one tablet as needed. - omeprazole (PRILOSEC) 40 mg capsule Take 1 capsule by mouth once daily. - Ferrous Gluconate 225 mg (27 mg iron) tab Take 1 tablet by mouth once daily. - clobetasol (TEMOVATE) 0.05 % ointment Apply half of one [id number]-ahsp to cover the affected area two days a week. - MAGNESIUM ORAL Take by mouth. - multivitamin with minerals (HAIR,SKIN AND NAILS ORAL) Take by mouth. - calcium carbonate-vitamin D3 (OSCAL+D) 500 mg-10 mcg (400 unit) chewable tablet Take 1 tablet by mouth twice daily. - Cholecalciferol, Vitamin D3, 50 mcg (2,000 unit) cap Take 1 capsule by mouth once daily. - COMPOUNDED PRESCRIPTION Exercise 30 minutes daily 5 days weekly - multivitamin tablet Take 1 tablet by mouth twice daily. - loratadine(CLARITIN 10 MG TAB) Take one(1) tablet daily as needed for allergy symptoms. Problem List As Of Date 01/15/2023 Noted Resolved Depressive disorder, not elsewhere classified [* 11/19/2019 ALLERGIC RHINITIS NOS [J30.9] Gastroesophageal reflux disease without esophag* IRON DEFIC ANEMIA NOS [D50.9] 09/15/2007 ACUTE GASTRITIS W/O HEMORRHAGE [K29.00] 10/12/2007 Osteopenia [M89.9, M94.9] Primary Localized Osteoarthrosis, Lower Leg [M1*07/10/2009 Quadriceps muscle rupture [S76.119A] 08/01/2010 04/06/2015 Tubular adenoma of colon [D12.6] 01/13/2013 Chronic diarrhea [K52.9] 03/09/2013 Leucocytosis [D72.829] 03/09/2013 04/06/2015 BMI 40.0-44.9, adult [Z68.41] 08/02/2013 Pain in joint, shoulder region [M25.519] 12/23/2013 Essential hypertension [I10] 09/01/2015 Glucose intolerance (impaired glucose tolerance*08/06/2016 Impingement syndrome of right shoulder [M75.41] 02/13/2018 Arthritis of right shoulder region [M19.011] 02/16/2018 Myopia of both eyes [H52.13] 02/01/2019 Insomnia [G47.00] 11/19/2019 Hiatal hernia [K44.9] 11/19/2019 Encounter Status:Closed by MAYANK MOSERUSER on 01/20/23 [facility] 01-10-2023 Miscellaneous Notes Patient has been identified by name and date of : Yes, Patient phones for refill(s): Requested Prescriptions Pending Prescriptions Disp Refills losartan (COZAAR) 50 mg tablet 90 tablet 3 Sig: Take 1 tablet by mouth twice daily. Date of last office visit in primary care: [place]AME[place] 12/12/22 with [facility] Appointment 06/24/23 with [facility] Last 2 Encounter Wt Readings: Date: Wt: 12/12/2022 106.1 kg (234 lb) 07/23/2022 103.9 kg (229 lb) Please advise. Thank you. NIC Strauss documented in this encounter [facility] 12-12-2022 Note HNO ID: [id number] Author: Michelle Garcia MD Service: ? Author Type: Physician Type: Progress Notes Filed: 12/12/2022 2:20 PM Note Text: Reason for Visit Patient presents with: Recheck: 4 month Jessica Merrill is a 71 year old female who presents here today for Above Complaints.. Health Maintenance MAMMOGRAM ADVANCE DIRECTIVE DISCUSSION DEPRESSION ASSESSMENT HPI Recently her read his own MRI which noted that he had hiatial hernia, went to GI and had scope and a cancer was found. This is weighing on her. She is due for a bone density and needs to have that done. Reviewed labs, wbc was elevated but she had cold that time. Also her tgs were high, and she was eating carbs more in holidays. Her blood pressure is on the higher side today ,she is on cozaar. Her gfr is normal. No problem-specific Assessment AND Plan notes found for this encounter. PAST MEDICAL HISTORY Diagnosis Date Acute gastritis without mention of hemorrhage Allergic rhinitis, cause unspecified BMI 40.0-44.9, adult ([facility]) 08/02/2013 Cataract Corneal abrasion 20 y ago Depressive disorder, not elsewhere classified Diverticulosis of colon (without mention of hemorrhage) Elevated BP 08/04/15 Esophageal reflux Iron deficiency anemia, unspecified Ocular migraine Osteopenia PMH - PAST MEDICAL HISTORY OF schatski ring PAST SURGICAL HISTORY Procedure Laterality Date COLONOSCOPY FLX DX W/COLLJ SPEC WHEN PFRMD 10/12/07 DILATION AND CURETTAGE DXAND/THER NONOBSTETRIC 12/18/1985 Dilation AND curettage EGD TRANSORAL BIOPSY SINGLE/MULTIPLE 10/12/07 LAPAROSCOPY SURG CHOLECYSTECTOMY 03/30/2013 SUTURE QUADRICEPS/HAMSTRING RUPTURE PRIMARY 08/09/2010 REPAIR QUADRICEPS performed by EVELINA CARVER at OR TONSILLECTOMY AND ADENOIDECTOMY AGE 13/> T/A (over age 12 years) TOTAL ABDOMINAL HYSTERECT W/WO RMVL TUBE OVARY 10/20/2002 Hysterectomy, BETO left ovaries FAMILY HISTORY Problem Relation Age of Onset Heart Father thyroid cancer at age 39 other (Rheumatoid arthritis) Mother other (rheumatoid arthritis) Maternal Aunt other (rheumatoid arthritis) Maternal Aunt Social History Tobacco Use Smoking status: Never Smokeless tobacco: Never Vaping Use Vaping Use: Never used Substance Use Topics Alcohol use: No Drug use: No Past medical history, appointments, medications, allergies reviewed. Pertinent Lab/Diagnostic Studies are reviewed and discussed today Current Outpatient Medications: estradiol (ESTRACE) 0.01 % (0.1 mg/gram) vaginal cream meloxicam (MOBIC) 15 mg tablet zolpidem (AMBIEN) 10 mg losartan (COZAAR) 50 mg tablet omeprazole (PRILOSEC) 40 mg capsule Ferrous Gluconate 225 mg (27 mg iron) tab clobetasol (TEMOVATE) 0.05 % ointment MAGNESIUM ORAL multivitamin with minerals (HAIR,SKIN AND NAILS ORAL) Cholecalciferol, Vitamin D3, 50 mcg (2,000 unit) cap COMPOUNDED PRESCRIPTION multivitamin tablet loratadine(CLARITIN 10 MG TAB) calcium carbonate-vitamin D3 (OSCAL+D) 500 mg-10 mcg (400 unit) chewable tablet Review of Systems CONSTITUTIONAL: No fevers, chills night sweats, unintended weight loss CARDIOVASCULAR: No chest pain, dyspnea, palpitations, orthopnea, PND, ankle edema. PULM: No dyspnea, unexplained cough. GI: No dysphagia/odynophagia, problematic reflux, constipation, diarrhea, changes in stool habits, hematochezia, melena. : No new urinary complaints, including dysuria, gross hematuria or pyuria. NEURO: No new balance problems, peripheral weakness/paresthesias or numbness of concern. Physical Exam BP 146/90 Pulse 101 Resp 16 Wt 106.1 kg (234 lb) SpO2 98% BMI 41.45 kg/m? General appearance: Well appearing, alert, in no acute distress, well nourished. Skin: Skin color, texture, turgor normal, no suspicious rashes or lesions Head: Normocephalic, no masses, lesions, tenderness or abnormalities Eyes: Anicteric sclera. Pupils are equally round and reactive to light. Extraocular movements are intact. Lungs: Lungs clear to auscultation. No wheezing, rhonchi, rales Heart: RRR without murmur, gallop, or rubs. Extremities: No deformities, edema, skin discoloration, clubbing or cyanosis. Good capillary refill. ASSESSMENT/PLAN: 1. Uncontrolled hypertension - ICD9: 401.9, ICD10: I10 (primary diagnosis) - good control - Recommended regular aerobic exercise. - Recommend home blood pressure monitoring, to bring results in on next visit - Goal of BP <130/80 2. Age-related osteoporosis without current pathological fracture - ICD9: 733.01, ICD10: M81.0 - Reviewed the need for Calcium and Vitamin D supplements and weight bearing exercise as tolerated - DXA-AXIAL SKELETON 3. Depression screening - ICD9: V79.0, ICD10: Z13.31 - DEPRESSION SCREENING/ASSESSMENT 4. BMI 40.0-44.9, adult (HCC) - ICD9: V85.41, ICD10: Z68.41 Stable - Continue current medications 5. Hypertriglyceridemia - ICD9: 272.1, ICD10: E78.1 (more content not included)... [facility] 12-12-2022 Instructions Michelle Garcia MD - 12/12/2022 11:35 AM EST BONE MINERAL DENSITY PATIENT INSTRUCTIONS ======= Bone mineral density testing measures the amount of calcium in certain parts of your bones. This information determines how strong your bones are. The test is used to detect osteoporosis, a disease in which the bone's mineral content and density are low, increasing a person's risk of fractures. The lumbar spine (lower back) and the hip are the skeletal sites usually examined. For the test, remember that: 1. You cannot take this test if you are . 2. Eat a normal diet on the day of the test. 3. Take your medications as you normally would. 4. DO NOT take calcium supplements (such as Tums) for 24 hours before the test. 5. On the day of the test, leave valuables (jewelry or credit cards) at home. 6. The test should be performed prior to oral, rectal or IV contrast studies, or at least 7 days after any of these studies. For the test, you may be asked to wear a hospital gown. You will lie on your back, on a padded table, in a comfortable position. Generally, you can resume your usual activities immediately. documented in this encounter [facility] 12-12-2022 History of Present illness Narrative Reason for Visit Patient presents with: Recheck: 4 month Jessica Merrill is a 71 year old female who presents here today for Above Complaints.. Health Maintenance MAMMOGRAM ADVANCE DIRECTIVE DISCUSSION DEPRESSION ASSESSMENT HPI Recently her read his own MRI which noted that he had hiatial hernia, went to GI and had scope and a cancer was found. This is weighing on her. She is due for a bone density and needs to have that done. Reviewed labs, wbc was elevated but she had cold that time. Also her tgs were high, and she was eating carbs more in holidays. Her blood pressure is on the higher side today ,she is on cozaar. Her gfr is normal. No problem-specific Assessment & Plan notes found for this encounter. PAST MEDICAL HISTORY Diagnosis Date Acute gastritis without mention of hemorrhage Allergic rhinitis, cause unspecified BMI 40.0-44.9, adult ([facility]) 08/02/2013 Cataract Corneal abrasion 20 y ago Depressive disorder, not elsewhere classified Diverticulosis of colon (without mention of hemorrhage) Elevated BP 08/04/15 Esophageal reflux Iron deficiency anemia, unspecified Ocular migraine Osteopenia PMH - PAST MEDICAL HISTORY OF schatski ring PAST SURGICAL HISTORY Procedure Laterality Date COLONOSCOPY FLX DX W/COLLJ SPEC WHEN PFRMD 10/12/07 DILATION & CURETTAGE DX&/THER NONOBSTETRIC 12/18/1985 Dilation & curettage EGD TRANSORAL BIOPSY SINGLE/MULTIPLE 10/12/07 LAPAROSCOPY SURG CHOLECYSTECTOMY 03/30/2013 SUTURE QUADRICEPS/HAMSTRING RUPTURE PRIMARY 08/09/2010 REPAIR QUADRICEPS performed by EVELINA CARVER at OR TONSILLECTOMY & ADENOIDECTOMY AGE 13/> T/A (over age 13 years) TOTAL ABDOMINAL HYSTERECT W/WO RMVL TUBE OVARY 10/20/2002 Hysterectomy, BETO left ovaries FAMILY HISTORY Problem Relation Age of Onset Heart Father thyroid cancer at age 39 other (Rheumatoid arthritis) Mother other (rheumatoid arthritis) Maternal Aunt other (rheumatoid arthritis) Maternal Aunt Social History Tobacco Use Smoking status: Never Smokeless tobacco: Never Vaping Use Vaping Use: Never used Substance Use Topics Alcohol use: No Drug use: No Past medical history, appointments, medications, allergies reviewed. Pertinent Lab/Diagnostic Studies are reviewed and discussed today Current Outpatient Medications: estradiol (ESTRACE) 0.01 % (0.1 mg/gram) vaginal cream meloxicam (MOBIC) 15 mg tablet zolpidem (AMBIEN) 10 mg losartan (COZAAR) 50 mg tablet omeprazole (PRILOSEC) 40 mg capsule Ferrous Gluconate 225 mg (27 mg iron) tab clobetasol (TEMOVATE) 0.05 % ointment MAGNESIUM ORAL multivitamin with minerals (HAIR,SKIN AND NAILS ORAL) Cholecalciferol, Vitamin D3, 50 mcg (2,000 unit) cap COMPOUNDED PRESCRIPTION multivitamin tablet loratadine(CLARITIN 10 MG TAB) calcium carbonate-vitamin D3 (OSCAL+D) 500 mg-10 mcg (400 unit) chewable tablet Review of Systems CONSTITUTIONAL: No fevers, chills night sweats, unintended weight loss CARDIOVASCULAR: No chest pain, dyspnea, palpitations, orthopnea, PND, ankle edema. PULM: No dyspnea, unexplained cough. GI: No dysphagia/odynophagia, problematic reflux, constipation, diarrhea, changes in stool habits, hematochezia, melena. : No new urinary complaints, including dysuria, gross hematuria or pyuria. NEURO: No new balance problems, peripheral weakness/paresthesias or numbness of concern. Physical Exam BP 146/90 Pulse 101 Resp 16 Wt 106.1 kg (234 lb) SpO2 98% BMI 41.45 kg/m General appearance: Well appearing, alert, in no acute distress, well nourished. Skin: Skin color, texture, turgor normal, no suspicious rashes or lesions Head: Normocephalic, no masses, lesions, tenderness or abnormalities Eyes: Anicteric sclera. Pupils are equally round and reactive to light. Extraocular movements are intact. Lungs: Lungs clear to auscultation. No wheezing, rhonchi, rales Heart: RRR without murmur, gallop, or rubs. Extremities: No deformities, edema, skin discoloration, clubbing or cyanosis. Good capillary refill. ASSESSMENT/PLAN: 1. Uncontrolled hypertension - ICD9: 401.9, ICD10: I10 (primary diagnosis) - good control - Recommended regular aerobic exercise. - Recommend home blood pressure monitoring, to bring results in on next visit - Goal of BP <130/80 2. Age-related osteoporosis without current pathological fracture - ICD9: 733.01, ICD10: M81.0 - Reviewed the need for Calcium and Vitamin D supplements and weight bearing exercise as tolerated - DXA-AXIAL SKELETON 3. Depression screening - ICD9: V79.0, ICD10: Z13.31 - DEPRESSION SCREENING/ASSESSMENT 4. BMI 40.0-44.9, adult (HCC) - ICD9: V85.41, ICD10: Z68.41 Stable - Continue current medications 5. Hypertriglyceridemia - ICD9: 272.1, ICD10: E78.1 To make some lifestyle changes and recheck In 6 months Michelle Garcia MD documented in this encounter [facility] 09-23-2022 Miscellaneous Notes filed Last visit with SW 01/2022. Pharmacy requesting larger sized tube. Requested Prescriptions Pending Prescriptions Disp Refills estradiol (ESTRACE) 0.01 % (0.1 mg/gram) vaginal cream [Pharmacy Med Name: Estradiol 0.1 MG/GM Vaginal Cream] 85 g 3 Sig: APPLY 1 GRAM OF CREAM TO LOWER VAGINA AND A PEA SIZED AMOUNT TO THE OPENING OF THE VAGINA 3 TIMES WEEKLY RX INSTRUCTIONS: Pharmacy initiated this request. No need to notify patient. Crissy Koenig RN documented in this encounter [facility] 09-19-2022 Miscellaneous Notes Patient notified. Please let patient know that her bone density shows osteopenia. Continue with current calcium and vit D supplement but I would like to get lab work completed to make sure dosage is appropriate. She can do these prior to her appointment in November with Dr. Garcia. I have ordered all fasting lab work for hte upcoming appointment. Walking, weight bearing exercise, resistance training , limiting alcohol and not smoking are also good ways to help maintain your bone mass. We will repeat the bone density in two years. Thank you Josselin Stevens APRN.HERACLIO documented in this encounter [facility] 08-28-2022 Miscellaneous Notes Patient has been identified by name and date of : Yes Patient phones for refill(s): Requested Prescriptions Pending Prescriptions Disp Refills meloxicam (MOBIC) 15 mg tablet [Pharmacy Med Name: Meloxicam 15 MG Oral Tablet] 90 tablet 3 Sig: TAKE 1 TABLET BY MOUTH ONCE DAILY Date of last office visit in primary care: 07/23/2022 Last 2 Encounter Wt Readings: Date: Wt: 07/23/2022 103.9 kg (229 lb) 04/10/2022 107.5 kg (237 lb) Previous labs/tests for medication: Not applicable Please advise. Thank you. Sienna Cruz LPN documented in this encounter [facility] 08-01-2022 Miscellaneous Notes Please let patient know I am sorry for a delayed response as I was out of the office until today. Recommend not having intercourse right after placement given possible absorption. Would wait until following day to have intercourse. If he feels he is having any new symptoms, to call his PCP documented in this encounter [facility] 08-01-2022 History of Present illness Narrative 1. Diplopia Adjusted prism to account for increase in diplopia Educated pt on adaptation 2. Combined forms of age-related cataract of both eyes Slightly worse-continue to monitor 3. Myopia of both eyes 4. Presbyopia 5. Regular astigmatism of both eyes Finalized new spec rx Follow-up yearly or sooner as needed Lidia Patel, OD August 01, 2022 11:46 AM documented in this encounter [facility] 07-31-2022 Miscellaneous Notes PATIENT NOTIFIED OF SAME. Confirmed with [facility] script has been cancelled. Please let patient know prescription has been sent. Please call and verify this was canceled to [facility] Thank you Josselin Stevens APRN.HERACLIO Pt calls to report that rx went to [facility] and was supposed to go to [facility]. Pt reports she was able to call [facility] and cancel the rx but needs new rx to go to [facility]. Pharmacy updated. Pt reports she leaves this Friday to go out of town and needs rx before then. Patient has been identified by name and date of : Yes Requested Prescriptions Pending Prescriptions Disp Refills zolpidem (AMBIEN) 10 mg 30 tablet 0 Sig: Use half to one tablet as needed. RX INSTRUCTIONS: Patient aware RX will be sent to pharmacy. No need to notify patient. Brittney Ventura LPN documented in this encounter [facility] 07-29-2022 Miscellaneous Notes PDMP website checked and validated. All prescriptions have been APPROPRIATELY filled. No suspicious activity was identified. 07/29/2022 by Josselin Stevens APRN.HERACLIO Patient has been identified by name and date of : Yes Patient phones for refill(s): Requested Prescriptions Pending Prescriptions Disp Refills zolpidem (AMBIEN) 10 mg 30 tablet 0 Sig: Use half to one tablet as needed. Date of last office visit in primary care: 07/23/22 Last 2 Encounter Wt Readings: Date: Wt: 07/23/2022 103.9 kg (229 lb) 04/10/2022 107.5 kg (237 lb) Previous labs/tests for medication: Not applicable Please advise. Thank you. Sienna Cruz LPN documented in this encounter [facility] 07-23-2022 History of Present illness Narrative Medicare Yearly Visit Medical B eligibilty date age 66 Date of last exam none in the past year PAST MEDICAL HISTORY Diagnosis Date Acute gastritis without mention of hemorrhage Allergic rhinitis, cause unspecified BMI 40.0-44.9, adult ([facility]) 08/02/2013 Cataract Corneal abrasion 20 y ago Depressive disorder, not elsewhere classified Diverticulosis of colon (without mention of hemorrhage) Elevated BP 08/04/15 Esophageal reflux Iron deficiency anemia, unspecified Ocular migraine Osteopenia PMH - PAST MEDICAL HISTORY OF [place] PAST SURGICAL HISTORY Procedure Laterality Date COLONOSCOPY FLX DX W/COLLJ SPEC WHEN PFRMD 10/12/07 DILATION & CURETTAGE DX&/THER NONOBSTETRIC 12/18/1985 Dilation & curettage EGD TRANSORAL BIOPSY SINGLE/MULTIPLE 10/12/07 LAPAROSCOPY SURG CHOLECYSTECTOMY 03/30/2013 SUTURE QUADRICEPS/HAMSTRING RUPTURE PRIMARY 08/09/2010 REPAIR QUADRICEPS performed by EVELINA CARVER at OR TONSILLECTOMY & ADENOIDECTOMY AGE 13/> T/A (over age 13 years) TOTAL ABDOMINAL HYSTERECT W/WO RMVL TUBE OVARY 10/20/2002 Hysterectomy, BETO left ovaries ALLERGIES: Ced Inhibitors, Cats, Norvasc [Amlodipine Besylate], Poison Naina, Dust Mites, and Tree And Shrub Pollen Medications reviewed: Yes FAMILY HISTORY Problem Relation Age of Onset Heart Father thyroid cancer at age 39 other (Rheumatoid arthritis) Mother other (rheumatoid arthritis) Maternal Aunt other (rheumatoid arthritis) Maternal Aunt SOCIAL HISTORY: Social History Tobacco Use Smoking status: Never Smokeless tobacco: Never Vaping Use Vaping Use: Never used Substance Use Topics Alcohol use: No Drug use: No Jessica denies regular aerobic exercise. She watches her diet for sodium, low fat and low cholesterol most of the time. List of current specialists seen: Had a colonoscopy february 21. End of Live Planning discussed including patients advanced directive wishes: No I am willing to follow Jessica's advanced directives. PHQ-2 / Depression screen She in the past two weeks denies having felt down, depressed, hopeless, or with little interest or pleasure in doing things. PHQ-2 Score: 1 PHQ-9 Score: 3 Functional Ability/Safety Screen 1. Was the patient's timed Up and Go test unsteady or longer than 30 seconds? No 2. Does the patient need help with the phone, transportation, shopping,preparing meals, housework, laundry, medications or managing money? No 3. Does your home have rugs in the hallway, lack of grab bars in the bathroom, lack of handrails on the stairs or have poor lighting? No Hearing Evaluation: mildly decreased PHYSICAL EXAM BP 132/92 (BP Site: Left Arm, BP Position: Sitting, BP Cuff Size: Large Adult) Pulse 95 Temp 36.4 C (97.5 F) Resp 18 Ht 160 cm (5' 3 ) Wt 103.9 kg (229 lb) SpO2 99% BMI 40.57 kg/m Alert and oriented X 3: YES Body mass index is 40.57 kg/m . ASSESSMENT/PLAN: 71 year old female The following prevention plan was discussed during the office visit and provided to the patient: - Lipid panel - Glaucoma screening Michelle Garcia MD documented in this encounter [facility] 07-19-2022 Miscellaneous Notes [facility] My[facility] sent Which pharmacy would patient like to have this sent to? It is preferable to electronically prescribe controlled substances versus using paper prescription. Thank you Josselin Stevens APRN.HERACLIO PDMP website checked and validated. All prescriptions have been APPROPRIATELY filled. No suspicious activity was identified. 07/17/2022 by Josselin Stevens APRN.CNP Patient has been identified by name and date of : Yes Patient phones for refill(s): Requested Prescriptions Pending Prescriptions Disp Refills zolpidem (AMBIEN) 10 mg 30 tablet 0 Sig: Use half to one tablet as needed. Date of last office visit in primary care: 04/10/22 next apt 07/23/22 Last 2 Encounter Wt Readings: Date: Wt: 04/10/2022 107.5 kg (237 lb) 03/30/2022 108.9 kg (240 lb) Previous labs/tests for medication: Not applicable Please advise. Thank you. Rand Granados LPN documented in this encounter [facility] 04-22-2022 Miscellaneous Notes Reason for call: Patient stated she tested positive for Covid-19 on 04/19/22 and questions whether she needs to be seen. Outcome: Patient was advised to seek a virtual PCP appointment today per Nurse emanations analysis technician Covid-19 protocol crosswalk. Patient confirmed she will seek a virtual visit using [facility] via [employer]. Reason for Disposition HIGH RISK for severe COVID complications (e.g., weak immune system, age > 64 years, obesity with BMI > 25, , chronic lung disease or other chronic medical condition) (Exception: Already seen by PCP and no new or worsening symptoms.) Answer Assessment - Initial Assessment Questions 1. COVID-19 DIAGNOSIS: tested positive 04/19/22 with home test 2. COVID-19 EXPOSURE: unknown, returned from [place] 04/21/22 3. ONSET: 04/16/22 4. WORST SYMPTOM: Intermittent sore throat rated 2/10 described as dull, took extra strength tylenol at 0100 without relief and stuffy nose 5. COUGH: yes, productive of yellow mucous 6. FEVER: no 7. RESPIRATORY STATUS: normal 8. [id number]: same 9. HIGH RISK DISEASE: HTN and obesity 10. VACCINE: yes, 2 11. BOOSTER: yes, 2 12. :N/A 13. OTHER SYMPTOMS: mild headache like a band around head at times rated 3/10, described as dull, neck pain 14. O2 SATURATION MONITOR: N/A Protocols used: CORONAVIRUS (COVID-19) DIAGNOSED OR [id number] documented in this encounter [facility] 04-10-2022 History of Present illness Narrative Reason for Visit Patient presents with: Same Day Appointment: BP issues Jessica Merrill is a 71 year old female who presents here today for Above Complaints. Health Maintenance BP CONTROLLED (<130/80) ADVANCE DIRECTIVE DISCUSSION MAMMOGRAM DEPRESSION SCREENING HPI Here to follow up Hypertension: we discussed that if she looses weight we can get off the bp medication. Has not lost any weight. When she checks her bp at home, the lowest systolic was 154 and the highest ds was 104. She is on losartan, agreeable to double it to make a total of 100 mgs daily No problem-specific Assessment & Plan notes found for this encounter. PAST MEDICAL HISTORY Diagnosis Date Acute gastritis without mention of hemorrhage Allergic rhinitis, cause unspecified BMI 40.0-44.9, adult ([facility]) 08/02/2013 Cataract Corneal abrasion 20 y ago Depressive disorder, not elsewhere classified Diverticulosis of colon (without mention of hemorrhage) Elevated BP 08/04/15 Esophageal reflux Iron deficiency anemia, unspecified Ocular migraine Osteopenia PMH - PAST MEDICAL HISTORY OF [place] PAST SURGICAL HISTORY Procedure Laterality Date COLONOSCOPY FLX DX W/COLLJ SPEC WHEN PFRMD 10/12/07 DILATION & CURETTAGE DX&/THER NONOBSTETRIC 12/18/1985 Dilation & curettage EGD TRANSORAL BIOPSY SINGLE/MULTIPLE 10/12/07 LAPAROSCOPY SURG CHOLECYSTECTOMY 03/30/2013 SUTURE QUADRICEPS/HAMSTRING RUPTURE PRIMARY 08/09/2010 REPAIR QUADRICEPS performed by EVELINA CARVER at OR TONSILLECTOMY & ADENOIDECTOMY AGE 13/> T/A (over age 13 years) TOTAL ABDOMINAL HYSTERECT W/WO RMVL TUBE OVARY 10/20/2002 Hysterectomy, BETO left ovaries FAMILY HISTORY Problem Relation Age of Onset Heart Father thyroid cancer at age 39 other (Rheumatoid arthritis) Mother other (rheumatoid arthritis) Maternal Aunt other (rheumatoid arthritis) Maternal Aunt Social History Tobacco Use Smoking status: Never Smoker Smokeless tobacco: Never Used Vaping Use Vaping Use: Never used Substance Use Topics Alcohol use: No Drug use: No Past medical history, appointments, medications, allergies reviewed. Pertinent Lab/Diagnostic Studies are reviewed and discussed today Current Outpatient Medications: omeprazole (PRILOSEC) 40 mg capsule estradiol (ESTRACE) 0.01 % (0.1 mg/gram) vaginal cream meloxicam (MOBIC) 15 mg tablet Ferrous Gluconate 225 mg (27 mg iron) tab zolpidem (AMBIEN) 10 mg losartan (COZAAR) 50 mg tablet clobetasol (TEMOVATE) 0.05 % ointment MAGNESIUM ORAL multivitamin with minerals (HAIR,SKIN AND NAILS ORAL) calcium carbonate-vitamin D3 (CALCIUM 500+D) 500 mg(1,250mg) -400 unit chewable tablet Cholecalciferol, Vitamin D3, (VITAMIN D-3) 2,000 unit cap COMPOUNDED PRESCRIPTION multivitamin tablet loratadine(CLARITIN 10 MG TAB) Review of Systems CONSTITUTIONAL: No fevers, chills night sweats, unintended weight loss CARDIOVASCULAR: No chest pain, dyspnea, palpitations, orthopnea, PND, ankle edema. PULM: No dyspnea, unexplained cough. GI: No dysphagia/odynophagia, problematic reflux, constipation, diarrhea, changes in stool habits, hematochezia, melena. : No new urinary complaints, including dysuria, gross hematuria or pyuria. NEURO: No new balance problems, peripheral weakness/paresthesias or numbness of concern. Physical Exam BP 136/72 (BP Site: Left Arm, BP Position: Sitting, BP Cuff Size: Large Adult) Pulse 89 Temp 36.2 C (97.2 F) Resp 14 Ht 160 cm (5' 3 ) Wt 107.5 kg (237 lb) SpO2 97% BMI 41.98 kg/m General appearance: Well appearing, alert, in no acute distress, well nourished. Skin: Skin color, texture, turgor normal, no suspicious rashes or lesions Head: Normocephalic, no masses, lesions, tenderness or abnormalities Eyes: Anicteric sclera. Pupils are equally round and reactive to light. Extraocular movements are intact. Lungs: Lungs clear to auscultation. No wheezing, rhonchi, rales Heart: RRR without murmur, gallop, or rubs. Extremities: No deformities, edema, skin discoloration, clubbing or cyanosis. Good capillary refill. ASSESSMENT/PLAN: 1. Essential hypertension - ICD9: 401.9, ICD10: I10 (primary diagnosis) - good control - Recommended regular aerobic exercise. - Recommend home blood pressure monitoring, to bring results in on next visit - Goal of BP <130/80 2. Insomnia, unspecified type - ICD9: 780.52, ICD10: G47.00 Cont the ambien 3. BMI 40.0-44.9, adult (HCC) - ICD9: V85.41, ICD10: Z68.41 Stable - Continue current medications Michelle Garcia MD documented in this encounter [facility] 04-01-2022 Miscellaneous Notes Patient has been identified by name and date of : Yes Patient phones for refill(s): Pending Prescriptions Disp Refills OMEPRAZOLE 40 MG CAPSULE,DELAYED RELEASE 90 capsule 3 Sig: Take 1 capsule by mouth once daily. KEVIN: No Date of last office visit in primary care: 03/30/22 next apt 07/19/22 Last 2 Encounter Wt Readings: Date: Wt: 03/30/2022 108.9 kg (240 lb) 02/08/2022 109.3 kg (241 lb) Previous labs/tests for medication: Not applicable Please advise. Thank you. Rand Granados LPN documented in this encounter [facility] 03-30-2022 Instructions Martina Gonzales APRN.HERACLIO - 03/30/2022 12:13 PM EDT 1.) Increase losartan to 1.5 tablets (75 mg) daily. 2.) Check blood pressure at home twice daily, write down numbers and bring to next visit. 3.) Continue to watch salt and processed foods in the diet.. 4.) Follow-up with PCP in 2 weeks. documented in this encounter [facility] 03-30-2022 History of Present illness Narrative This is a 71 year old female who presents today with: Patient presents with: Headache: elevated BP, taken prior to taking BP medications HISTORY OF PRESENT ILLNESS: Jessica Merrill is a 71 year old female. Patient presents with: Headache: elevated BP, taken prior to taking BP medications Patient of Dr. Garcia here for headache and BP concerns. Mild headache yesterday. Headache was still present this morning but seemed worse. Pain is in the front of the head and does not radiate. No N/V. History of headaches but has never needed prescription medication. Currently taking Meloxicam 15 mg daily but took tylenol arthritis. Traveled last weekend to [place]. Checked blood pressure at home today SBP 150-170's. Currently taking losartan 50 mg daily. PAST MEDICAL HISTORY: PAST MEDICAL HISTORY Diagnosis Date Acute gastritis without mention of hemorrhage Allergic rhinitis, cause unspecified BMI 40.0-44.9, adult ([facility]) 08/02/2013 Cataract Corneal abrasion 20 y ago Depressive disorder, not elsewhere classified Diverticulosis of colon (without mention of hemorrhage) Elevated BP 08/04/15 Esophageal reflux Iron deficiency anemia, unspecified Ocular migraine Osteopenia PMH - PAST MEDICAL HISTORY OF [place] PAST SURGICAL HISTORY Procedure Laterality Date COLONOSCOPY FLX DX W/COLLJ SPEC WHEN PFRMD 10/12/07 DILATION & CURETTAGE DX&/THER NONOBSTETRIC 12/18/1985 Dilation & curettage EGD TRANSORAL BIOPSY SINGLE/MULTIPLE 10/12/07 LAPAROSCOPY SURG CHOLECYSTECTOMY 03/30/2013 SUTURE QUADRICEPS/HAMSTRING RUPTURE PRIMARY 08/09/2010 REPAIR QUADRICEPS performed by EVELINA CARVER at OR TONSILLECTOMY & ADENOIDECTOMY AGE 13/> T/A (over age 13 years) TOTAL ABDOMINAL HYSTERECT W/WO RMVL TUBE OVARY 10/20/2002 Hysterectomy, BETO left ovaries ALLERGIES Ced Inhibitors, Cats, Norvasc [Amlodipine Besylate], Poison Naina, Dust Mites, and Tree And Shrub Pollen MEDICATIONS Current Outpatient Medications Medication Sig estradiol (ESTRACE) 0.01 % (0.1 mg/gram) vaginal cream Apply 1 gram of cream to lower vagina and a pea sized amount to the opening of the vagina three times a week meloxicam (MOBIC) 15 mg tablet TAKE 1 TABLET BY MOUTH ONCE DAILY losartan (COZAAR) 50 mg tablet Take 1 tablet by mouth once daily. omeprazole (PRILOSEC) 40 mg capsule Take 1 capsule by mouth once daily. clobetasol (TEMOVATE) 0.05 % ointment Apply half of one [id number] to cover the affected area two days a week. MAGNESIUM ORAL Take by mouth. multivitamin with minerals (HAIR,SKIN AND NAILS ORAL) Take by mouth. calcium carbonate-vitamin D3 (CALCIUM 500+D) 500 mg(1,250mg) -400 unit chewable tablet Take 1 tablet by mouth twice daily. Cholecalciferol, Vitamin D3, (VITAMIN D-3) 2,000 unit cap Take 1 capsule by mouth once daily. COMPOUNDED PRESCRIPTION Exercise 30 minutes daily 5 days weekly multivitamin tablet Take 1 tablet by mouth twice daily. loratadine(CLARITIN 10 MG TAB) Take one(1) tablet daily as needed for allergy symptoms. Ferrous Gluconate 225 mg (27 mg iron) tab Take 1 tablet by mouth once daily. zolpidem (AMBIEN) 10 mg Use half to one tablet as needed. No current facility-administered medications for this visit. FAMILY HISTORY Problem Relation Age of Onset Heart Father thyroid cancer at age 39 other (Rheumatoid arthritis) Mother other (rheumatoid arthritis) Maternal Aunt other (rheumatoid arthritis) Maternal Aunt Social History Tobacco Use Smoking status: Never Smoker Smokeless tobacco: Never Used Vaping Use Vaping Use: Never used Substance Use Topics Alcohol use: No Drug use: No REVIEW OF SYSTEMS GENERAL: No weight loss, malaise or fevers/chills HEENT: Negative for frequent or significant headaches, No changes in hearing or vision. NECK: Negative for lumps, goiter, pain and significant neck swelling RESPIRATORY: Negative for cough, hemoptysis, wheezing, dyspnea or shortness of breath CARDIOVASCULAR: Negative for chest pain, leg swelling, orthopnea, or palpitations GI: No nausea, vomiting, or diarrhea/constipation. No hematochezia/melena. No heartburn or reflux symptoms. : No history of dysuria, frequency or incontinence MUSCULOSKELETAL: Negative for joint pain or swelling. SKIN: Negative for lesions, rash, and itching ENDOCRINE: Negative for cold or heat intolerance, polyuria, polydipsia and goiter NEURO: No history of headaches, syncope, paralysis, seizures or tremors MOOD: Negative for depression, anxiety, or suicidal ideation. EXAM: BP 168/90 Pulse 83 Temp 37 C (98.6 F) Wt 108.9 kg (240 lb) SpO2 98% BMI 42.51 kg/m PHYSICAL EXAM: General Appearance: Well appearing, alert, in no acute distress, well-hydrated, well nourished. Skin: Skin color, texture, turgor normal, no suspicious rashes or lesions. Head: Normocephalic, no masses, lesions, tenderness or abnormalities. Eyes: Anicteric sclera. Extraocular movements are intact. . Neck: Supple, no adenopathy; thyroid symmetric, normal size, no bruits. Lungs: Lungs clear to auscultation. No wheezing, rhonchi, rales.. Heart: RRR without murmur, gallop, or rubs. No ectopy. Extremities: No deformities, edema, skin discoloration, clubbing or cyanosis. Good capillary refill. Peripheral Pulses: Normal, Capillary refill <2secs, strong peripheral pulses, Pulses palpable. ASSESSMENT/PLAN: 1. Essential hypertension - ICD9: 401.9, ICD10: I10 (primary diagnosis) - poor control - Increase losartan(Cozaar) - Encouraged dietary sodium restriction/DASH diet - Recommended regular aerobic exercise. - Recommend home blood pressure monitoring, to bring results in on next visit - Discussed need and benefit for weight loss. - Goal of BP <130/80 - Follow-up with PCP in 2 weeks. 2. Headache, unspecified headache type - ICD9: 784.0, ICD10: R51.9 - Headache more than likely due to elevated blood pressure. Follow-up in 2 weeks or sooner as needed. Discussed treatment plan and patient voices understanding. Patient's questions answered appropriately. Medications and potential side effects were discussed and patient voices understanding. Martina Gonzales APRN.HERACLIO This note was partially generated using [employer] voice recognition system. Note was reviewed for accuracy. There may be minor misspellings or grammar miscues with [employer] voice recognition. documented in this encounter [facility] 03-20-2022 Miscellaneous Notes See 03/20/22 [employer] message regarding dose. Will have provider review that and order if needed. Crissy Koenig RN documented in this encounter [facility] 03-11-2022 Miscellaneous Notes Patient has been identified by name and date of : Yes Patient phones for refill(s): Pending Prescriptions Disp Refills MELOXICAM 15 MG TABLET 90 tablet 3 Sig: TAKE 1 TABLET BY MOUTH ONCE DAILY KEVIN: Yes Date of last office visit in primary care: 01/16/2022 Last 2 Encounter Wt Readings: Date: Wt: 02/08/2022 109.3 kg (241 lb) 01/21/2022 108.5 kg (239 lb 3.2 oz) Previous labs/tests for medication: Not applicable Please advise. Thank you. Sienna Cruz LPN documented in this encounter [facility] 02-08-2022 History of Present illness Narrative Jessica Merrill is a 71 year old female who presents for follow up. HPI: Started using the estrogen cream 4 days ago. Was getting up q 30 - 45 min to urinate overnight. Since starting the estrogen cream she has noticed a significant improvement in urinary urgency and is only having to use the restroom overnight twice. Drinks caffeine and alcohol very infrequently. Some urge incontinence during the day and she attributes this to not using the restroom when she needs to. Happy with the estrogen cream at this time. No new complaints. 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 [employer] General Manager History Comments: Sexual Activity: Yes; Male Contraception: No contraception data on record PAST MEDICAL HISTORY Diagnosis Date Acute gastritis without mention of hemorrhage Allergic rhinitis, cause unspecified BMI 40.0-44.9, adult ([facility]) 08/02/2013 Cataract Corneal abrasion 20 y ago Depressive disorder, not elsewhere classified Diverticulosis of colon (without mention of hemorrhage) Elevated BP 08/04/15 Esophageal reflux Iron deficiency anemia, unspecified Ocular migraine Osteopenia PMH - PAST MEDICAL HISTORY OF [place] PAST SURGICAL HISTORY Procedure Laterality Date COLONOSCOPY FLX DX W/COLLJ SPEC WHEN PFRMD 10/12/07 DILATION & CURETTAGE DX&/THER NONOBSTETRIC 12/18/1985 Dilation & curettage EGD TRANSORAL BIOPSY SINGLE/MULTIPLE 10/12/07 LAPAROSCOPY SURG CHOLECYSTECTOMY 03/30/2013 SUTURE QUADRICEPS/HAMSTRING RUPTURE PRIMARY 08/09/2010 REPAIR QUADRICEPS performed by EVELINA CARVER at OR TONSILLECTOMY & ADENOIDECTOMY AGE 13/> T/A (over age 13 years) TOTAL ABDOMINAL HYSTERECT W/WO RMVL TUBE OVARY 10/20/2002 Hysterectomy, BETO left ovaries FAMILY HISTORY Problem Relation Age of Onset Heart Father thyroid cancer at age 39 other (Rheumatoid arthritis) Mother other (rheumatoid arthritis) Maternal Aunt other (rheumatoid arthritis) Maternal Aunt Social History Tobacco Use Smoking status: Never Smoker Smokeless tobacco: Never Used Vaping Use Vaping Use: Never used Substance Use Topics Alcohol use: No Drug use: No Current Outpatient Medications Medication Sig estradiol (ESTRACE) 0.01 % (0.1 mg/gram) vaginal cream apply approx. 1/2 inch of cream to lower vagina and a pea sized amount to the opening of the vagina qhs x 2 weeks and then twice weekly meloxicam (MOBIC) 15 mg tablet Take 1 tablet by mouth once daily. Ferrous Gluconate 225 mg (27 mg iron) tab Take 1 tablet by mouth once daily. losartan (COZAAR) 50 mg tablet Take 1 tablet by mouth once daily. omeprazole (PRILOSEC) 40 mg capsule Take 1 capsule by mouth once daily. clobetasol (TEMOVATE) 0.05 % ointment Apply half of one [id number] to cover the affected area two days a week. MAGNESIUM ORAL Take by mouth. multivitamin with minerals (HAIR,SKIN AND NAILS ORAL) Take by mouth. calcium carbonate-vitamin D3 (CALCIUM 500+D) 500 mg(1,250mg) -400 unit chewable tablet Take 1 tablet by mouth twice daily. Cholecalciferol, Vitamin D3, (VITAMIN D-3) 2,000 unit cap Take 1 capsule by mouth once daily. COMPOUNDED PRESCRIPTION Exercise 30 minutes daily 5 days weekly multivitamin tablet Take 1 tablet by mouth twice daily. loratadine(CLARITIN 10 MG TAB) Take one(1) tablet daily as needed for allergy symptoms. zolpidem (AMBIEN) 10 mg Use half to one tablet as needed. No current facility-administered medications for this visit. Allergies As of Date: 02/08/2022 Allergen Noted Reaction CED INHIBITORS 11/18/2017 Cough CATS 11/30/2019 Other: See Comments NORVASC [AMLODIPINE BESYLATE] 08/14/2016 Intolerance POISON NAINA 04/06/2015 Other: See Comments DUST MITES 03/06/2021 Other: See Comments TREE AND SHRUB POLLEN 03/06/2021 Itching Fully Assessed 02/08/2022 REVIEW OF SYSTEMS Expanded ROS: N/A Allergies and current medication updated:Yes EXAM: BP 138/90 Wt 241 lb (109.3kg) GENERAL: pleasant, female in no apparent distress HEENT: Normocephalic, atraumatic, mucus membranes moist and no lesions NECK: full range of motion CHEST: Normal inspiratory effort NEURO: exam grossly non-focal EXTREMITIES: normal ASSESSMENT AND PLAN: Encounter Diagnosis ICD-10-CM 1. Urinary urgency R39.15 2. Urge incontinence N39.41 3. Vulvar atrophy N90.5 Has noticed an improvement with estrogen cream. Continue estrogen and clobetasol. Information given on bladder training as well and reviewed. Discussed oxybutynin and handout given on medication for her to review. RTO annual exams and PRN. Will call or message with pelvic US results. Mira Joseph DO Medical Decision Making: Problems: Moderate: 2+ stable chronic illnesses Risk: Low: Low risk from testing/treatment Medical Decision Making Level: 3 - Low documented in this encounter [facility] 01-21-2022 History of Present illness Narrative Jessica Merrill is a 71 year old female who presents for problem visit. HPI: Currently on Clobetasol cream for lichen planus. Had vulvar biopsy as noted below. Has noticed labial bumps and a sharp, shooting pain up her vagina into her pelvis. The pain comes at random and lasts a few seconds, and then resolved on its own. History of hysterectomy and she reports she still has her ovaries. She reports some procedure for preventing prolapse at time of hysterectomy. The bumps are not painful or draining. No bleeding. She noticed a fissure or a split in her skin recently as well. Having urge incontinence that seems to be worsening. The urine is irritating to her skin. No stress incontinence. 2018 FINAL DIAGNOSIS A. Left labia majora vulva, biopsy - Lichenoid interface dermatitis, see comment. AF/RS/lilian/09/10/19 COMMENT Sections reveal a band-like dermal inflammatory infiltrate consisting of lymphocytes, histiocytes and few plasma cells. There is saw-toothing of the rete ridges with dyskeratotic keratinocytes, hypergranulosis and some overlying compact orthokeratosis. Overall, the histologic features are those of lichenoid interface dermatitis and are most consistent with lichen planus. An early lichen sclerosus cannot be entirely excluded. Clinical correlation is recommended. 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 History Comments: Sexual Activity: Yes; Male Contraception: No contraception data on record PAST MEDICAL HISTORY Diagnosis Date Acute gastritis without mention of hemorrhage Allergic rhinitis, cause unspecified BMI 40.0-44.9, adult ([facility]) 08/02/2013 Cataract Corneal abrasion 20 y ago Depressive disorder, not elsewhere classified Diverticulosis of colon (without mention of hemorrhage) Elevated BP 08/04/15 Esophageal reflux Iron deficiency anemia, unspecified Ocular migraine Osteopenia PMH - PAST MEDICAL HISTORY OF schatski ring PAST SURGICAL HISTORY Procedure Laterality Date COLONOSCOPY FLX DX W/COLLJ SPEC WHEN PFRMD 10/12/07 DILATION & CURETTAGE DX&/THER NONOBSTETRIC 12/18/1985 Dilation & curettage EGD TRANSORAL BIOPSY SINGLE/MULTIPLE 10/12/07 LAPAROSCOPY SURG CHOLECYSTECTOMY 03/30/2013 SUTURE QUADRICEPS/HAMSTRING RUPTURE PRIMARY 08/09/2010 REPAIR QUADRICEPS performed by EVELINA CARVER at OR TONSILLECTOMY & ADENOIDECTOMY AGE 13/> T/A (over age 13 years) TOTAL ABDOMINAL HYSTERECT W/WO RMVL TUBE OVARY 10/20/2002 Hysterectomy, BETO left ovaries FAMILY HISTORY Problem Relation Age of Onset Heart Father thyroid cancer at age 39 other (Rheumatoid arthritis) Mother other (rheumatoid arthritis) Maternal Aunt other (rheumatoid arthritis) Maternal Aunt Social History Tobacco Use Smoking status: Never Smoker Smokeless tobacco: Never Used Vaping Use Vaping Use: Never used Substance Use Topics Alcohol use: No Drug use: No Current Outpatient Medications Medication Sig meloxicam (MOBIC) 15 mg tablet Take 1 tablet by mouth once daily. Ferrous Gluconate 225 mg (27 mg iron) tab Take 1 tablet by mouth once daily. losartan (COZAAR) 50 mg tablet Take 1 tablet by mouth once daily. omeprazole (PRILOSEC) 40 mg capsule Take 1 capsule by mouth once daily. clobetasol (TEMOVATE) 0.05 % ointment Apply half of one [id number] to cover the affected area two days a week. MAGNESIUM ORAL Take by mouth. multivitamin with minerals (HAIR,SKIN AND NAILS ORAL) Take by mouth. calcium carbonate-vitamin D3 (CALCIUM 500+D) 500 mg(1,250mg) -400 unit chewable tablet Take 1 tablet by mouth twice daily. Cholecalciferol, Vitamin D3, (VITAMIN D-3) 2,000 unit cap Take 1 capsule by mouth once daily. COMPOUNDED PRESCRIPTION Exercise 30 minutes daily 5 days weekly multivitamin tablet Take 1 tablet by mouth twice daily. loratadine(CLARITIN 10 MG TAB) Take one(1) tablet daily as needed for allergy symptoms. estradiol (ESTRACE) 0.01 % (0.1 mg/gram) vaginal cream apply approx. 1/2 inch of cream to lower vagina and a pea sized amount to the opening of the vagina qhs x 2 weeks and then twice weekly zolpidem (AMBIEN) 10 mg Use half to one tablet as needed. No current facility-administered medications for this visit. Allergies As of Date: 01/21/2022 Allergen Noted Reaction CED INHIBITORS 11/18/2017 Cough CATS 11/30/2019 Other: See Comments NORVASC [AMLODIPINE BESYLATE] 08/14/2016 Intolerance POISON NAINA 04/06/2015 Other: See Comments DUST MITES 03/06/2021 Other: See Comments TREE AND SHRUB POLLEN 03/06/2021 Itching Fully Assessed 01/21/2022 REVIEW OF SYSTEMS Abdomen: No nausea, vomiting, diarrhea, or constipation. Bladder: No dysuria. Expanded ROS: N/A Allergies and current medication updated:Yes EXAM: BP 120/90 Wt 239 lb 3.2 oz (108.5kg) GENERAL: pleasant, female in no apparent distress HEENT: Normocephalic, atraumatic, mucus membranes moist and no lesions NECK: full range of motion CHEST: Normal inspiratory effort ABDOMEN: soft, non-tender and no masses PELVIC: external genitalia atrophic appearing, normal Bartholin's glands, urethra, Ceex Haci's glands, no vulvar lesions, physiologic discharge present, vagina atrophic appearing, several firm yellow appearing < 1 cm lesions noted scattered about the bilateral labia consistent with epidermoid cysts BIMANUAL: no adnexal masses and non-tender NEURO: exam grossly non-focal EXTREMITIES: normal ASSESSMENT AND PLAN: Encounter Diagnosis ICD-10-CM 1. Pelvic pain in female R10.2 PELVIC US WHI US FEMALE PELVIS TRANSVAG 2. Vulvar atrophy N90.5 estradiol (ESTRACE) 0.01 % (0.1 mg/gram) vaginal cream 3. Vaginal atrophy N95.2 estradiol (ESTRACE) 0.01 % (0.1 mg/gram) vaginal cream 4. Urge incontinence N39.41 URINALYSIS, WITH MICROSCOPIC URINE CULTURE 5. Epidermoid cyst L72.0 6. Cystocele, midline N81.11 Continue Clobetasol cream twice weekly. Vulvar exam significant for atrophy and multiple epidermoid cysts - no biopsy indicated today. Will start estrogen cream as well after discussion of r/b. Check pelvic US for pelvic pain. Check UA and urine cx for incontinence. RTO for follow up after ultrasound to review US results, see if she has had an improvement in symptoms with estrogen, and further discuss incontinence. Mira Joseph DO Medical Decision Making: Problems: Low: 2+ self-limited or minor problems Moderate: 1+ chronic illnesses with change Data: Unique test(s) ordered: 3+ Risk: Low: Low risk from testing/treatment Medical Decision Making Level: 4 - Moderate documented in this encounter [facility] 01-10-2022 Miscellaneous Notes Patient has been identified by name and date of : Yes Patient phones for refill(s): Pending Prescriptions Disp Refills FERROUS GLUCONATE 225 MG (27 MG IRON) TABLET 30 tablet 11 Sig: Take 1 tablet by mouth once daily. KEVIN: No Date of last office visit in primary care: 07/02/2021 6 month follow-up: 01/16/2022 Last 2 Encounter Wt Readings: Date: Wt: 07/02/2021 106.1 kg (234 lb) 03/06/2021 104.3 kg (230 lb) Previous labs/tests for medication: Blood Counts: WBC (k/uL) Date Value 03/01/2021 7.95 RBC (m/uL) Date Value 03/01/2021 4.64 Hematocrit (%) Date Value 03/01/2021 44.4 Hemoglobin (g/dL) Date Value 03/01/2021 12.9 Platelet Count (k/uL) Date Value 03/01/2021 403 Please advise. Thank you. Maria D Calderon LPN documented in this encounter [facility] documented as of this encounter (statuses as of 01/11/2022) [facility] History of Past illness Narrative* Problem Noted Date Resolved Date Leucocytosis 03/09/2013 04/06/2015 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/01/20102014 Depressive disorder, not elsewhere classified 11/19/2019 documented as of this encounter (statuses as of 01/21/2022) [facility] History of Past illness Narrative* Problem Noted Date Resolved Date Leucocytosis 03/09/2013 04/06/2015 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/01/20102014 Depressive disorder, not elsewhere classified 11/19/2019 documented as of this encounter (statuses as of 02/08/2022) [facility] of Past illness Narrative* Problem Noted Date Resolved Date Leucocytosis 03/09/2013 04/06/2015 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/01/20102014 Depressive disorder, not elsewhere classified 11/19/2019 documented as of this encounter (statuses as of 02/09/2022) [facility] of Past illness Narrative* Problem Noted Date Resolved Date Leucocytosis 03/09/2013 04/06/2015 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/01/20102014 Depressive disorder, not elsewhere classified 11/19/2019 documented as of this encounter (statuses as of 03/11/2022) [facility] of Past illness Narrative* Problem Noted Date Resolved Date Leucocytosis 03/09/2013 04/06/2015 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/01/20102014 Depressive disorder, not elsewhere classified 11/19/2019 documented as of this encounter (statuses as of 03/20/2022) [facility] of Past illness Narrative* Problem Noted Date Resolved Date Leucocytosis 03/09/2013 04/06/2015 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/01/20102014 Depressive disorder, not elsewhere classified 11/19/2019 documented as of this encounter (statuses as of 03/30/2022) [facility] of Past illness Narrative* Problem Noted Date Resolved Date Leucocytosis 03/09/2013 04/06/2015 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/01/20102014 Depressive disorder, not elsewhere classified 11/19/2019 documented as of this encounter (statuses as of 04/01/2022) [facility] Past illness Narrative* Problem Noted Date Resolved Date Leucocytosis 03/09/2013 04/06/2015 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/01/20102014 Depressive disorder, not elsewhere classified 11/19/2019 documented as of this encounter (statuses as of 04/11/2022) [facility] of Past illness Narrative* Problem Noted Date Resolved Date Leucocytosis 03/09/2013 04/06/2015 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/01/20102014 Depressive disorder, not elsewhere classified 11/19/2019 documented as of this encounter (statuses as of 04/22/2022) [facility] illness Narrative* Problem Noted Date Resolved Date Leucocytosis 03/09/2013 04/06/2015 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/01/20102014 Depressive disorder, not elsewhere classified 11/19/2019 documented as of this encounter (statuses as of 07/22/2022) [facility] Narrative* Problem Noted Date Resolved Date Leucocytosis 03/09/2013 04/06/2015 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/01/20102014 Depressive disorder, not elsewhere classified 11/19/2019 documented as of this encounter (statuses as of 07/23/2022) [facility] Narrative* Problem Noted Date Resolved Date Leucocytosis 03/09/2013 04/06/2015 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/01/20102014 Depressive disorder, not elsewhere classified 11/19/2019 documented as of this encounter (statuses as of 07/29/2022) [facility] Narrative* Problem Noted Date Resolved Date Leucocytosis 03/09/2013 04/06/2015 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/01/20102014 Depressive disorder, not elsewhere classified 11/19/2019 documented as of this encounter (statuses as of 07/31/2022) [facility] Narrative* Problem Noted Date Resolved Date Leucocytosis 03/09/2013 04/06/2015 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/01/20102014 Depressive disorder, not elsewhere classified 11/19/2019 documented as of this encounter (statuses as of 08/01/2022) [facility]ative* Problem Noted Date Resolved Date Leucocytosis 03/09/2013 04/06/2015 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/01/20102014 Depressive disorder, not elsewhere classified 11/19/2019 documented as of this encounter (statuses as of 08/01/2022) [facility] Narrative* Problem Noted Date Resolved Date Leucocytosis 03/09/2013 04/06/2015 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/01/20102014 Depressive disorder, not elsewhere classified 11/19/2019 documented as of this encounter (statuses as of 08/28/2022) [facility] Narrative* Problem Noted Date Resolved Date Leucocytosis 03/09/2013 04/06/2015 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/01/20102014 Depressive disorder, not elsewhere classified 11/19/2019 documented as of this encounter (statuses as of 09/19/2022) [facility] Narrative* Problem Noted Date Resolved Date Leucocytosis 03/09/2013 04/06/2015 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/01/20102014 Depressive disorder, not elsewhere classified 11/19/2019 documented as of this encounter (statuses as of 09/23/2022) [facility] Narrative* Problem Noted Date Resolved Date Leucocytosis 03/09/2013 04/06/2015 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/01/20102014 Depressive disorder, not elsewhere classified 11/19/2019 documented as of this encounter (statuses as of 10/09/2022) [facility]ative* Problem Noted Date Resolved Date Leucocytosis 03/09/2013 04/06/2015 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/01/20102014 Depressive disorder, not elsewhere classified 11/19/2019 documented as of this encounter (statuses as of 12/06/2022) [facility] Narrative* Problem Noted Date Resolved Date Leucocytosis 03/09/2013 04/06/2015 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/01/20102014 Depressive disorder, not elsewhere classified 11/19/2019 documented as of this encounter (statuses as of 12/12/2022) [facility]* Problem Noted Date Resolved Date Leucocytosis 03/09/2013 04/06/2015 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/01/20102014 Depressive disorder, not elsewhere classified 11/19/2019 documented as of this encounter (statuses as of 01/13/2023) [facility]ative* Problem Noted Date Resolved Date Leucocytosis 03/09/2013 04/06/2015 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/01/20102014 Depressive disorder, not elsewhere classified 11/19/2019 documented as of this encounter (statuses as of 01/20/2023) [facility] Narrative* Problem Noted Date Resolved Date Leucocytosis 03/09/2013 04/06/2015 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/01/20102014 Depressive disorder, not elsewhere classified 11/19/2019 documented as of this encounter (statuses as of 02/28/2023) [facility] Narrative* Problem Noted Date Resolved Date Leucocytosis 03/09/2013 04/06/2015 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/01/20102014 Depressive disorder, not elsewhere classified 11/19/2019 documented as of this encounter (statuses as of 04/17/2023) [facility]arrative* Problem Noted Date Diagnosed Date Resolved Date Leucocytosis 03/09/2013 04/06/2015 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/01/2010 Depressive disorder, not elsewhere classified 11/19/2019 documented as of this encounter (statuses as of 04/29/2023) [facility]* Problem Noted Date Diagnosed Date Resolved Date Leucocytosis 03/09/2013 04/06/2015 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/01/2010 Depressive disorder, not elsewhere classified 11/19/2019 documented as of this encounter (statuses as of 05/01/2023) [facility]* Problem Noted Date Diagnosed Date Resolved Date Leucocytosis 03/09/2013 04/06/2015 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/01/2010 Depressive disorder, not elsewhere classified 11/19/2019 documented as of this encounter (statuses as of 05/15/2023) [facility]* Problem Noted Date Diagnosed Date Resolved Date Leucocytosis 03/09/2013 04/06/2015 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/01/2010 Depressive disorder, not elsewhere classified 11/19/2019 documented as of this encounter (statuses as of 05/16/2023) [facility]* Problem Noted Date Diagnosed Date Resolved Date Leucocytosis 03/09/2013 04/06/2015 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/01/2010 Depressive disorder, not elsewhere classified 11/19/2019 documented as of this encounter (statuses as of 06/05/2023) [facility]* Problem Noted Date Diagnosed Date Resolved Date Leucocytosis 03/09/2013 04/06/2015 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/01/2010 Depressive disorder, not elsewhere classified 11/19/2019 documented as of this encounter (statuses as of 07/02/2023) [facility]* Problem Noted Date Diagnosed Date Resolved Date Leucocytosis 03/09/2013 04/06/2015 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/01/2010 Depressive disorder, not elsewhere classified 11/19/2019 documented as of this encounter (statuses as of 08/08/2023) [facility]* Problem Noted Date Diagnosed Date Resolved Date Leucocytosis 03/09/2013 04/06/2015 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/01/2010 Depressive disorder, not elsewhere classified 11/19/2019 documented as of this encounter (statuses as of 08/13/2023) [facility]* Problem Noted Date Diagnosed Date Resolved Date Leucocytosis 03/09/2013 04/06/2015 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/01/2010 Depressive disorder, not elsewhere classified 11/19/2019 documented as of this encounter (statuses as of 08/15/2023) [facility]* Problem Noted Date Diagnosed Date Resolved Date Leucocytosis 03/09/2013 04/06/2015 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/01/2010 Depressive disorder, not elsewhere classified 11/19/2019 documented as of this encounter (statuses as of 08/26/2023) [facility]* Problem Noted Date Diagnosed Date Resolved Date Leucocytosis 03/09/2013 04/06/2015 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/01/2010 Depressive disorder, not elsewhere classified 11/19/2019 documented as of this encounter (statuses as of 09/03/2023) [facility]* Problem Noted Date Diagnosed Date Resolved Date Leucocytosis 03/09/2013 04/06/2015 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/01/2010 Depressive disorder, not elsewhere classified 11/19/2019 documented as of this encounter (statuses as of 09/06/2023) [facility]* Problem Noted Date Diagnosed Date Resolved Date Leucocytosis 03/09/2013 04/06/2015 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/01/2010 Depressive disorder, not elsewhere classified 11/19/2019 documented as of this encounter (statuses as of 09/26/2023) [facility] note* Diagnosis Pelvic pain in female- Primary Unspecified symptom associated with female genital organs Vulvar atrophy Atrophy of vulva Vaginal atrophy Postmenopausal atrophic vaginitis Urge incontinence Epidermoid cyst Sebaceous cyst Cystocele, midline [facility] Diagnosis Urinary urgency- Primary Urgency of urination Urge incontinence Vulvar atrophy Atrophy of vulva Breast cancer screening by mammogram [facility] Diagnosis Pelvic pain in female Unspecified symptom associated with female genital organs [facility] Diagnosis Vulvar atrophy Atrophy of vulva Vaginal atrophy Postmenopausal atrophic vaginitis [facility] Diagnosis Essential hypertension- Primary Unspecified essential hypertension Headache, unspecified headache type [facility] Diagnosis Essential hypertension- Primary Unspecified essential hypertension Insomnia, unspecified type BMI 40.0-44.9, adult (HCC) Body Mass Index 40.0-44.9, adult [facility] Diagnosis Insomnia, unspecified type [facility] Diagnosis Medicare annual wellness visit, subsequent- Primary Routine general medical examination at a health care facility [facility] Insomnia, unspecified type [facility] Diagnosis Insomnia, unspecified type [facility] Diplopia- Primary Combined forms of age-related cataract of both eyes Other and combined forms of senile cataract Myopia of both eyes Myopia Presbyopia Regular astigmatism of both eyes Regular astigmatism [facility] Diagnosis Essential hypertension- Primary Unspecified essential hypertension Annual physical exam Routine general medical examination at a health care facility Osteopenia, unspecified location Vitamin D deficiency Unspecified vitamin D deficiency Lipid screening Screening for lipoid disorders [facility] Diagnosis Vulvar atrophy Atrophy of vulva Vaginal atrophy Postmenopausal atrophic vaginitis [facility] Diagnosis Uncontrolled hypertension- Primary Unspecified essential hypertension Age-related osteoporosis without current pathological fracture Senile osteoporosis Depression screening Screening for depression BMI 40.0-44.9, adult (HCC) Body Mass Index 40.0-44.9, adult Hypertriglyceridemia Pure hyperglyceridemia [facility] Diagnosis Encounter for screening mammogram [facility] Diagnosis Lichen planus [facility] Diagnosis COVID- Primary Essential hypertension Unspecified essential hypertension Hypertriglyceridemia Pure hyperglyceridemia [facility] Diagnosis Essential hypertension- Primary Unspecified essential hypertension Hypertriglyceridemia Pure hyperglyceridemia Chronic pain of both knees Balance problem Other symptoms involving nervous and musculoskeletal systems Chronic diarrhea Di[facility] Diagnosis Bilateral chronic knee pain- Primary Pain in joint, lower leg Balance problem Other symptoms involving nervous and musculoskeletal systems [facility] Diagnosis Bilateral chronic knee pain- Primary Pain in joint, lower leg Balance problem Other symptoms involving nervous and musculoskeletal systems [facility] Diagnosis Bilateral chronic knee pain- Primary Pain in joint, lower leg Balance problem Other symptoms involving nervous and musculoskeletal systems [facility] Diagnosis Bilateral chronic knee pain- Primary Pain in joint, lower leg Balance problem Other symptoms involving nervous and musculoskeletal systems [facility] Diagnosis Bilateral chronic knee pain- Primary Pain in joint, lower leg Balance problem Other symptoms involving nervous and musculoskeletal systems documented in this encounter [facility] note* Diagnosis Bilateral chronic knee pain- Primary Pain in joint, lower leg Balance problem Other symptoms involving nervous and musculoskeletal systems documented in this encounter [facility] note* Diagnosis Essential hypertension- Primary Unspecified essential hypertension Hypertriglyceridemia Pure hyperglyceridemia documented in this encounter [facility] for referral (narrative)* Diagnostic Procedure Only (Routine) - Open Specialty Diagnoses / Procedures Referred By Contac t Referred To Contact [facility] Diagnoses Pelvic pain in female Procedures US FEMALE PELVIS TRANSVAG US TRANSVAGINAL Mira Joseph MD [address] [place] [address] [facility] Referral ID Status Reason Start Date Expiration Date V isits Requested Visits Authorized [id number] Open Auto-Generate d Referral 01/21/2022 02/20/2023 1 1 * Diagnostic Procedure Only (Routine) - Pending Review Specialty Diagnoses / Procedures Referred By Peg vance Referred To Contact [facility] Diagnoses Pelvic pain in female Procedures PELVIC US WHI US PELVIC NONOBSTETRIC REAL-TIME IMAGE COMPLETE Mira Joseph MD [address] [place] [address] [facility] [address] [place] [address] Referral ID Status Reason Start Date Expiration Date Visits Requested Visits Authorized [id number] Pending Review Auto-Generat ed Referral 01/21/2022 01/21/2023 1 1 [facility] for referral (narrative)* Diagnostic Procedure Only (Routine) - Authorized Specialty Diagnoses / Procedures Referred By Peg t Referred To Contact [facility] Diagnoses Breast cancer screening by mammogram Procedures BHARGAVI SCREENING SCREENING MAMMOGRAPHY BI 2-VIEW BREAST INC CAD Mira Joseph MD [address] [place] [address] [facility] [address] [place] [address] Referral ID Status Reason Start Date Expiration Date Visits Requested Visits Authorized [id number] Authorized Auto-Generat ed Referral 02/22/2022 10/19/2022 1 1 [facility] for referral (narrative)* Diagnostic Procedure Only (Routine) - Closed Specialty Diagnoses / Procedures Referred By Peg vance Referred To Contact [facility] Diagnoses Pelvic pain in female Procedures US FEMALE PELVIS TRANSVAG US TRANSVAGINAL Mira Joseph MD [address] [place] [address] [facility] Referral ID Status Reason Start Date Expiration Date V isits Requested Visits Authorized [id number] Closed Auto-Generate d Referral 01/21/2022 02/20/2023 1 1 [facility] for referral (narrative)* Diagnostic Procedure Only (Routine) - Pending Review Specialty Diagnoses / Procedures Referred By Peg vance Referred To Contact [facility] Diagnoses Encounter for screening mammogram for breast cancer Procedures BHARGAVI SCREENING SCREENING MAMMOGRAPHY BI 2-VIEW BREAST INC CAD Michelle Garcia MD [address] [place] [address] [facility] [address] [place] [address] Referral ID Status Reason Start Date Expiration Date Visits Requested Visits Authorized [id number] Pending Review Auto-Generat ed Referral 01/15/2023 02/14/2024 1 1 [facility] for visit Narrative* Diagnostic Procedure Only (Routine) - Closed Specialty Diagnoses / Procedures Referred By Peg vance Referred To Contact [facility] Diagnoses Pelvic pain in female Procedures US FEMALE PELVIS TRANSVAG US TRANSVAGINAL Mira Joseph MD [address] [place] [address] [facility] Referral ID Status Reason Start Date Expiration Date V isits Requested Visits Authorized [id number] Closed Auto-Generate d Referral 01/21/2022 02/20/2023 1 1 [facility] Summary Purpose Family History No Family History Records FoundNo Family History Records Found Advance Directives No Advanced Directives Records FoundDocuments on File Type Date Recorded Patient 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 Assembler Expl 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 Advance Directive(s) 02/16/2019 6:51 AM Advance Directive(s) 03/30/2013 7:47 AM Documents on File Type Date Recorded Patient Pedal Assembler Expl anation Advance Directive(s) 02/16/2019 6:51 AM Advance Directive(s) 03/30/2013 7:47 AM Documents on File Type Date Recorded Patient Pedal Assembler Expl anation Advance Directive(s) 03/22/2022 10:42 AM Advance Directive(s) 02/16/2019 6:51 AM Advance Directive(s) 03/30/2013 7:47 AM Documents on File Type Date Recorded Patient Pedal Assembler Expl anation Advance Directive(s) 03/22/2022 10:42 AM Advance Directive(s) 03/30/2013 7:47 AM Documents on File Type Date Recorded Patient Pedal Assembler Expl anation Advance Directive(s) 03/22/2022 10:42 AM Advance Directive(s) 03/30/2013 7:47 AM Procedure Findings Note HNO ID: [id number] Author: Arjun Queen Service: ? Author Type: Physician Type: Brief Op Note Filed: 02/16/2019 8:35 AM Note Text: BRIEF OPERATIVE / PROCEDURE NOTE LOG ID: [id number] SURGERY/PROCEDURE DATE: 02/16/2019 INCISION/PROCEDURE START TIME: 7:50 AM INCISION CLOSE/PROCEDURE END TIME: SURGEON(S)/PROCEDURALIST(S) AND FINANCIAL DEVELOPER(S): Surgeon(s) and Role: * Minh Queen - Primary No Additional Staff SURGERY/PROCEDURE(S): colonoscopy w polypectomy ANESTHESIA: Monitored Anesthesia Care FINDINGS: polyps/div/int and ext hemorrhoids ESTIMATED BLOOD LOSS: 0 ml SPECIMENS: polyps COMPLICATIONS: None PRE-OP/PRE-PROCEDURE DIAGNOSIS: h/o polyps POST-OP/POST-PROCEDURE DIAGNOSIS: Colon Polyps; Diverticulosis; Tortuous Colon; Suboptimal Prep SIGNATURE: Minh Queen MD PATIENT NAME: Jessica Merrill DATE: February 16, 2019 TIME: 8:32 AM PAGER/CONTACT #: [phone] Reason for Referral Specialty Diagnoses / Procedures Referred By Contac t Referred To Contact Diagnoses Insomnia, unspecified type Josselin Stevens APRN.SURGICAL ELASTIC KNITTER [address] [place] [address] Referral ID Status Reason Start Date Expiration Date Visits Re quested Visits Authorized [id number] Closed 1 1 Specialty Diagnoses / Procedures Referred By Contac t Referred To Contact [facility] Diagnoses Chronic pain of both knees Balance problem Procedures CONSULT TO PHYSICAL THERAPY PHYSICAL THERAPY EVALUATION HIGH COMPLEX 45 MINS Josselin Stevens APRN.SURGICAL ELASTIC KNITTER [address] [place] [address] [facility] [address] [place] [address] Referral ID Status Reason Start Date Expiration Date Visits Requested Visits Authorized [id number] Pending Review Auto-Generat ed Referral 06/26/2023 06/25/2024 1 1 Specialty Diagnoses / Procedures Referred By Contac t Referred To Contact X[facility] IMAGING Diagnoses Chronic pain of both knees Balance problem Procedures XR KNEE GENERAL 4V AP BOTH/PA BOTH/LAT/MERC BILATERAL RADIOLOGIC EXAM KNEE COMPLETE 4/MORE VIEWS Josselin Stevens APRN.SURGICAL ELASTIC KNITTER [address] [place] [address] [place] [id number] Referral ID Status Reason Start Date Expiration Date V isits Requested Visits Authorized [id number] Closed Auto-Generate d Referral 06/26/2023 07/25/2024 1 1 Medications Administered Section Active Administered Medications - up to 3 most recent administrations Medication Order MAR Action Action Date Dose Rate Site PHENYLephrine 2.5 % 1 Drop (AK-DILATE, JACE-SYNEPHRINE) 1 Drop, BOTH EYES, DIRECTED, Starting on Fri08/01/22 at 1030, Until Fri08/01/22 at 2229, Administer for dilation PROTECT FROM LIGHT Given 08/01/2022 10:30 AM EDT 1 Drop proparacaine 0.5 % 1 Drop (ALCAINE) 1 Drop, BOTH EYES, DIRECTED, Starting on Aimee 08/01/22 at 1030, Until Fri08/01/22 at 2229, Administer for pneumo tonometry, tonopen tonometry, or pachymetry. In the event of a proparacaine shortage, administer tetracaine 0.5% ophthalmic drops 1 drop in the left eye as directed for pneumo tonometry, tonopen tonometry, or pachymetry Given 08/01/2022 10:30 AM EDT 1 Drop tropicamide 1 % 1 Drop (MYDRIACYL) 1 Drop, BOTH EYES, DIRECTED, Starting on Aimee 08/01/22 at 1030, Until Aimee 08/01/22 at 2229, Administer for dilation Given 08/01/2022 10:30 AM EDT 1 Drop Additional Source Comments INFORMATION SOURCE (unrecogn ized section and content) DATE CREATED AUTHOR AUTHOR'S ORGANIZ ATION 09/28/2023 [facility] Source Comments (unrecognize d section and content) In the event this informatio n is protected by the Federal Confidentiality of Alcohol and Drug Abuse Patient Records regulations: The Federal rules restrict any use of the information to criminally investigate or prosecute any alcohol or drug abuse patient.[facility] the event this information is protected by the Federal Confidentiality of Alcohol and Drug Abuse Patient Records regulations: The Federal rules restrict any use of the information to criminally investigate or prosecute any alcohol or drug abuse patient.[facility] the event this information is protected by the Federal Confidentiality of Alcohol and Drug Abuse Patient Records regulations: The Federal rules restrict any use of the information to criminally investigate or prosecute any alcohol or drug abuse patient.[facility] the event this information is protected by the Federal Confidentiality of Alcohol and Drug Abuse Patient Records regulations: The Federal rules restrict any use of the information to criminally investigate or prosecute any alcohol or drug abuse patient.[facility] the event this information is protected by the Federal Confidentiality of Alcohol and Drug Abuse Patient Records regulations: The Federal rules restrict any use of the information to criminally investigate or prosecute any alcohol or drug abuse patient.[facility] the event this information is protected by the Federal Confidentiality of Alcohol and Drug Abuse Patient Records regulations: The Federal rules restrict any use of the information to criminally investigate or prosecute any alcohol or drug abuse patient.[facility] the event this information is protected by the Federal Confidentiality of Alcohol and Drug Abuse Patient Records regulations: The Federal rules restrict any use of the information to criminally investigate or prosecute any alcohol or drug abuse patient.[facility] the event this information is protected by the Federal Confidentiality of Alcohol and Drug Abuse Patient Records regulations: The Federal rules restrict any use of the information to criminally investigate or prosecute any alcohol or drug abuse patient.[facility] the event this information is protected by the Federal Confidentiality of Alcohol and Drug Abuse Patient Records regulations: The Federal rules restrict any use of the information to criminally investigate or prosecute any alcohol or drug abuse patient.[facility] the event this information is protected by the Federal Confidentiality of Alcohol and Drug Abuse Patient Records regulations: The Federal rules restrict any use of the information to criminally investigate or prosecute any alcohol or drug abuse patient.[facility] the event this information is protected by the Federal Confidentiality of Alcohol and Drug Abuse Patient Records regulations: The Federal rules restrict any use of the information to criminally investigate or prosecute any alcohol or drug abuse patient.[facility] the event this information is protected by the Federal Confidentiality of Alcohol and Drug Abuse Patient Records regulations: The Federal rules restrict any use of the information to criminally investigate or prosecute any alcohol or drug abuse patient.[facility] the event this information is protected by the Federal Confidentiality of Alcohol and Drug Abuse Patient Records regulations: The Federal rules restrict any use of the information to criminally investigate or prosecute any alcohol or drug abuse patient.[facility]In the event this information is protected by the Federal Confidentiality of Alcohol and Drug Abuse Patient Records regulations: The Federal rules restrict any use of the information to criminally investigate or prosecute any alcohol or drug abuse patient.[facility] the event this information is protected by the Federal Confidentiality of Alcohol and Drug Abuse Patient Records regulations: The Federal rules restrict any use of the information to criminally investigate or prosecute any alcohol or drug abuse patient.[facility]In the event this information is protected by the Federal Confidentiality of Alcohol and Drug Abuse Patient Records regulations: The Federal rules restrict any use of the information to criminally investigate or prosecute any alcohol or drug abuse patient.[facility] CenterIn the event this information is protected by the Federal Confidentiality of Alcohol and Drug Abuse Patient Records regulations: The Federal rules restrict any use of the information to criminally investigate or prosecute any alcohol or drug abuse patient.[facility]In the event this information is protected by the Federal Confidentiality of Alcohol and Drug Abuse Patient Records regulations: The Federal rules restrict any use of the information to criminally investigate or prosecute any alcohol or drug abuse patient.[facility]In the event this information is protected by the Federal Confidentiality of Alcohol and Drug Abuse Patient Records regulations: The Federal rules restrict any use of the information to criminally investigate or prosecute any alcohol or drug abuse patient.[facility] CenterIn the event this information is protected by the Federal Confidentiality of Alcohol and Drug Abuse Patient Records regulations: The Federal rules restrict any use of the information to criminally investigate or prosecute any alcohol or drug abuse patient.[facility] CenterIn the event this information is protected by the Federal Confidentiality of Alcohol and Drug Abuse Patient Records regulations: The Federal rules restrict any use of the information to criminally investigate or prosecute any alcohol or drug abuse patient.[facility] CenterIn the event this information is protected by the Federal Confidentiality of Alcohol and Drug Abuse Patient Records regulations: The Federal rules restrict any use of the information to criminally investigate or prosecute any alcohol or drug abuse patient.[facility] CenterIn the event this information is protected by the Federal Confidentiality of Alcohol and Drug Abuse Patient Records regulations: The Federal rules restrict any use of the information to criminally investigate or prosecute any alcohol or drug abuse patient.[facility] CenterIn the event this information is protected by the Federal Confidentiality of Alcohol and Drug Abuse Patient Records regulations: The Federal rules restrict any use of the information to criminally investigate or prosecute any alcohol or drug abuse patient.[facility] CenterIn the event this information is protected by the Federal Confidentiality of Alcohol and Drug Abuse Patient Records regulations: The Federal rules restrict any use of the information to criminally investigate or prosecute any alcohol or drug abuse patient.[facility]In the event this information is protected by the Federal Confidentiality of Alcohol and Drug Abuse Patient Records regulations: The Federal rules restrict any use of the information to criminally investigate or prosecute any alcohol or drug abuse patient.[facility]In the event this information is protected by the Federal Confidentiality of Alcohol and Drug Abuse Patient Records regulations: The Federal rules restrict any use of the information to criminally investigate or prosecute any alcohol or drug abuse patient.[facility] CenterIn the event this information is protected by the Federal Confidentiality of Alcohol and Drug Abuse Patient Records regulations: The Federal rules restrict any use of the information to criminally investigate or prosecute any alcohol or drug abuse patient.[facility] CenterIn the event this information is protected by the Federal Confidentiality of Alcohol and Drug Abuse Patient Records regulations: The Federal rules restrict any use of the information to criminally investigate or prosecute any alcohol or drug abuse patient.[facility] CenterIn the event this information is protected by the Federal Confidentiality of Alcohol and Drug Abuse Patient Records regulations: The Federal rules restrict any use of the information to criminally investigate or prosecute any alcohol or drug abuse patient.[facility] CenterIn the event this information is protected by the Federal Confidentiality of Alcohol and Drug Abuse Patient Records regulations: The Federal rules restrict any use of the information to criminally investigate or prosecute any alcohol or drug abuse patient.[facility] CenterIn the event this information is protected by the Federal Confidentiality of Alcohol and Drug Abuse Patient Records regulations: The Federal rules restrict any use of the information to criminally investigate or prosecute any alcohol or drug abuse patient.[facility] CenterIn the event this information is protected by the Federal Confidentiality of Alcohol and Drug Abuse Patient Records regulations: The Federal rules restrict any use of the information to criminally investigate or prosecute any alcohol or drug abuse patient.[facility] CenterIn the event this information is protected by the Federal Confidentiality of Alcohol and Drug Abuse Patient Records regulations: The Federal rules restrict any use of the information to criminally investigate or prosecute any alcohol or drug abuse patient.[facility] CenterIn the event this information is protected by the Federal Confidentiality of Alcohol and Drug Abuse Patient Records regulations: The Federal rules restrict any use of the information to criminally investigate or prosecute any alcohol or drug abuse patient.[facility] CenterIn the event this information is protected by the Federal Confidentiality of Alcohol and Drug Abuse Patient Records regulations: The Federal rules restrict any use of the information to criminally investigate or prosecute any alcohol or drug abuse patient.[facility] CenterIn the event this information is protected by the Federal Confidentiality of Alcohol and Drug Abuse Patient Records regulations: The Federal rules restrict any use of the information to criminally investigate or prosecute any alcohol or drug abuse patient.[facility] CenterIn the event this information is protected by the Federal Confidentiality of Alcohol and Drug Abuse Patient Records regulations: The Federal rules restrict any use of the information to criminally investigate or prosecute any alcohol or drug abuse patient.[facility] CenterIn the event this information is protected by the Federal Confidentiality of Alcohol and Drug Abuse Patient Records regulations: The Federal rules restrict any use of the information to criminally investigate or prosecute any alcohol or drug abuse patient.[facility] Reason for Visit (unrecogniz ed section and content) Specialty Diagnoses / Procedures Referred By Contac t Referred To Contact PHYSICAL THERAPY Diagnoses Chronic pain of both knees Balance problem Procedures CONSULT TO PHYSICAL THERAPY PHYSICAL THERAPY EVALUATION HIGH COMPLEX 45 MINS Josselin Stevens APRN.SURGICAL ELASTIC KNITTER [address] [place] [address] [facility] [address] [place] [address] Referral ID Status Reason Start Date Expiration Date Visits Requested Visits Authorized [id number] Authorized Auto-Generat ed Referral 10/20/2022 10/19/2023 99 99 Reason Comments Physical Therapy Reason Comments PT Progress Note Physical Therapy Reason Onset Date Comments Refill Request 01/10/2022 Reason Comments Vaginal Problem Specialty Diagnoses / Procedures Referred By Contac t Referred To Contact CLERICAL SUPPORT Diagnoses Labial pain external vaginal lumps, labial pain Procedures OFFICE/OUTPATIENT ESTABLISHED HIGH MDM 40-54 MIN EST WHI PATIENT Self Mira Joseph MD [address] [facility] [place] [id number] Referral ID Status Reason Start Date Expiration Date V isits Requested Visits Authorized [id number] Closed Financial Clearance Required - OON Payor Patient Cleared INN/SMCP Payor Auth Obtained 01/21/2022 10/19/2022 1 1 Reason Comments Follow Up had u/s at 1pm. Specialty Diagnoses / Procedures Referred By Contac t Referred To Contact CLERICAL SUPPORT Diagnoses 2 week follow up Procedures EST I PATIENT Mira Joseph MD [address] [facility] [place] [address] Mira Joseph MD [address] [place] [address] Referral ID Status Reason Start Date Expiration Date Visits Re quested Visits Authorized [id number] Closed 02/08/2022 10/19/2022 1 1 Reason Comments Refill Request Reason Onset Date Comments Refill Request 03/20/2022 Reason Comments Headache elevated BP, taken p rior to taking BP medications Reason Onset Date Comments Refill Request 03/30/2022 Reason Comments Same Day Appointment BP issues Specialty Diagnoses / Procedures Referred By Contac t Referred To Contact Internal Medicine / INTERNAL MEDICINE Diagnoses bp issues Procedures 4C EST Self Michelle Garcia MD [address] [place] [address] Referral ID Status Reason Start Date Expiration Date Visits Re quested Visits Authorized [id number] Closed 04/10/2022 10/19/2022 1 1 Reason Comments Covid19 Concern Reason Onset Date Comments Refill Request 07/15/2022 Reason Comments Yearly Exam wellness exam Reason Onset Date Comments Refill Request 07/28/2022 Reason Onset Date Comments Refill Request 07/29/2022 Reason Comments Double vision Both eyes Reason Comments Results Reason Onset Date Comments Refill Request 10/09/2022 Reason Comments Recheck 4 month Reason Onset Date Comments Refill Request 01/10/2023 Reason Onset Date Comments Refill Request 04/28/2023 Reason Onset Date Comments Refill Request 04/30/2023 Reason Comments Covid Positive Reason Comments COVID Reason Comments Recheck 6 month follow up Reason Comments Recheck 3 month follow up Care Teams (unrecognized sec tion and content) Cash Posting Representative Relationship Specialty Start Date End Date Michelle Garcia MD [address] [place] [address] PCP - General Internal Medicine 11/18/17 Cash Posting Representative Relationship Specialty Start Date End Date Michelle Garcia MD [address] [place] [address] PCP - General Internal Medicine 11/18/17 Cash Posting Representative Relationship Specialty Start Date End Date Michelle Garcia MD [address] [place] [address] PCP - General Internal Medicine 11/18/17 Cash Posting Representative Relationship Specialty Start Date End Date Michelle Garcia MD [address] [place] [address] PCP - General Internal Medicine 11/18/17 Cash Posting Representative Relationship Specialty Start Date End Date Michelle Garcia MD [address] [place] [address] PCP - General Internal Medicine 11/18/17 Cash Posting Representative Relationship Specialty Start Date End Date Michelle Garcia MD [address] [place] [address] PCP - General Internal Medicine 11/18/17 Cash Posting Representative Relationship Specialty Start Date End Date Michelle Garcia MD [address] [place] [address] PCP - General Internal Medicine 11/18/17 Cash Posting Representative Relationship Specialty Start Date End Date Michelle Garcia MD [address] [place] [address] PCP - General Internal Medicine 11/18/17 Cash Posting Representative Relationship Specialty Start Date End Date Michelle Garcia MD [address] [place] [address] PCP - General Internal Medicine 11/18/17 Cash Posting Representative Relationship Specialty Start Date End Date Michelle Garcia MD [address] [place] [address] PCP - General Internal Medicine 11/18/17 Cash Posting Representative Relationship Specialty Start Date End Date Michelle Garcia MD [address] [place] [address] PCP - General Internal Medicine 11/18/17 Cash Posting Representative Relationship Specialty Start Date End Date Michelle Garcia MD [address] [place] [address] PCP - General Internal Medicine 11/18/17 Cash Posting Representative Relationship Specialty Start Date End Date Michelle Garcia MD [address] [place] [address] PCP - General Internal Medicine 11/18/17 Cash Posting Representative Relationship Specialty Start Date End Date Michelle Garcia MD [address] [place] [address] PCP - General Internal Medicine 11/18/17 Cash Posting Representative Relationship Specialty Start Date End Date Michelle Garcia MD [address] [place] [address] PCP - General Internal Medicine 11/18/17 Cash Posting Representative Relationship Specialty Start Date End Date Michelle Garcia MD [address] [place] [address] PCP - General Internal Medicine 11/18/17 Cash Posting Representative Relationship Specialty Start Date End Date Michelle Garcia MD [address] [place] [address] PCP - General Internal Medicine 11/18/17 Cash Posting Representative Relationship Specialty Start Date End Date Michelle Garcia MD [address] [place] [address] PCP - General Internal Medicine 11/18/17 Cash Posting Representative Relationship Specialty Start Date End Date Michelle Garcia MD [address] [place] [address] PCP - General Internal Medicine 11/18/17 Cash Posting Representative Relationship Specialty Start Date End Date Michelle Garcia MD [address] [place] [address] PCP - General Internal Medicine 11/18/17 Cash Posting Representative Relationship Specialty Start Date End Date Michelle Garcia MD [address] [place] [address] PCP - General Internal Medicine 11/18/17 Cash Posting Representative Relationship Specialty Start Date End Date Michelle Garcia MD [address] [place] [address] PCP - General Internal Medicine 11/18/17 Cash Posting Representative Relationship Specialty Start Date End Date Michelle Garcia MD [address] [place] [address] PCP - General Internal Medicine 11/18/17 Cash Posting Representative Relationship Specialty Start Date End Date Michelle Garcia MD [address] [place] [address] PCP - General Internal Medicine 11/18/17 Cash Posting Representative Relationship Specialty Start Date End Date Michelle Garcia MD [address] [place] [address] PCP - General Internal Medicine 11/18/17 Cash Posting Representative Relationship Specialty Start Date End Date Michelle Garcia MD [address] [place] [address] PCP - General Internal Medicine 11/18/17 Cash Posting Representative Relationship Specialty Start Date End Date Michelle Garcia MD [address] [place] [address] PCP - General Internal Medicine 11/18/17 Cash Posting Representative Relationship Specialty Start Date End Date Michelle Garcia MD [address] [place] [address] PCP - General Internal Medicine 11/18/17 Cash Posting Representative Relationship Specialty Start Date End Date Michelle Garcia MD [address] [place], [place] [address] PCP - General Internal Medicine 11/18/17 FOR RECORDS PERTAINING TO PATIENTS WHO ARE OR HAVE BEEN ENROLLED IN A CHEMICAL DEPENDENCY/SUBSTANCEABUSE PROGRAM, SOME INFORMATION MAY BE OMITTED. This clinical summary was aggregated from multiple sources. Caution should be exercised in using it in the provision of clinical care. This summary normalizes information from multiple sources, and as a consequence, information in this document may materially change the coding, format and clinical context of patient data. In addition, data may be omitted in some cases. CLINICAL DECISIONS SHOULD BE BASED ON THE PRIMARY CLINICAL RECORDS. [facility] [employer] [facility]. provides no warranty or guarantee of the accuracy or completeness of information in this document.
--- NOTE | 2023-10-28 01:59 | EDS_ITS ---
HPI History of Present Illness Chief Complaint: Upper Extremity Injury Narrative Narrative: 72-year-old female presents with injury to her right upper arm that she sustained from a fall approximately 3 hours ago. She states she was coming in from the outside through the front door and had a mechanical fall. She fell onto her right shoulder. While she had her head leaning against the wall, she denies hitting her head or loss of consciousness. She is right-hand dominant. She denies pain in the proximal portion of her right upper arm, and pain that is worse with movement. She denies other injury. She does not take a blood thinner. [facility] Medical History Cholecystectomy planned Vertigo Home Medications loratadine 10 mg DAILY 05/22/22 [History Last Taken Unknown] losartan 50 mg tablet 1 tab PO BID 05/22/22 [History Last Taken Unknown] meclizine 25 mg tablet 25 mg PO TID PRN dizziness #14 tabs 05/22/22 [Rx Last Taken Unknown] meloxicam 15 mg tablet 1 tab DAILY 05/22/22 [History Last Taken Unknown] omeprazole 40 mg capsule,delayed release 1 cap PO DAILY 05/22/22 [History Last Taken Unknown] estradiol 0.01% (0.1 mg/gram) vaginal cream 1 appful vaginal DAILY 10/28/23 [History Last Taken Unknown] oxycodone-acetaminophen 5 mg-325 mg tablet (Percocet) 1 tab PO Q6H PRN pain 3 days #12 tabs 10/28/23 [Rx Last Taken Unknown] Allergy/AdvReac Type Severity Reaction Status Date / Time adhesive tape Allergy Rash Verified 10/28/23 00:43 Surgical History History of hysterectomy Social History Smoking Status: Never smoker ROS ROS ED ROS Narrative Constitutional: No fever, no chills. HEENT: No sore throat. No neck pain. No loss of vision. No rhinorrhea. Cardiovascular: No chest pain. No palpitations. No pedal edema. Respiratory: No cough, no shortness of breath. Abdominal: No abdominal pain. No nausea. No vomiting. Genitourinary: No dysuria. No hematuria. Musculoskeletal: Right trapezial pain/myalgias. Shoulder pain/right upper arm pain, more proximal. Neurologic: No headaches. No dizziness. No lightheadedness. Skin: No rash. No change in color. Psychiatric: No depression. No anxiety. EXAM Physical Exam Narrative Exam Narrative: Afebrile. Vital signs noted. HEENT: Normocephalic. Atraumatic. PERRL, EOMI. Neck soft and supple. No point tenderness or step off. Cardiovascular: Regular rate and rhythm. No murmurs, rubs, or gallops appreciated. Respiratory: No tachypnea. Lungs clear to auscultation bilaterally. Gastrointestinal: Abdomen soft, nontender, with normoactive bowel sounds. No rebound or guarding. Neurological: Awake. Alert. Nonfocal, nonlateralizing. Skin: No rash. Normal color. No pallor. Musculoskeletal: No pedal edema. No tenderness to palpation or crepitance right clavicle. Mild tenderness right trapezius. Positive tenderness to palpation right proximal humerus, no palpable deficit. Range of motion of right shoulder limited secondary to pain. Able to oppose thumb and abduct and adduct fingers. Good capillary refill on fingers of right hand. Palpable radial pulse. Const Vital Signs: 10/28/23 00:39 Temperature 97.8 F Temperature Source Temporal Pulse Rate 84 Respiratory Rate 16 Blood Pressure 170/109 H Blood Pressure Mean 129 Pulse Ox 97 Oxygen Delivery Method Room Air MDM MDM MDM Narrative Medical decision making narrative: I do not CT imaging of the head or C-spine is indicated. I think she has more muscular pain on the trapezius. Concern is for right shoulder contusion versus fracture versus fracture dislocation. RN ordered protocol x-rays of the right shoulder and 2 views was obtained and interpreted by myself independently. There is a proximal humerus fracture and impacted humeral head fracture. I reviewed the radiology report which comments on probable impacted fracture of the humeral head/neck with extension through the greater tuberosity, consistent with my independent interpretation. She will be given 1 Percocet tablet here, placed in a sling and swath, continue ice and immobilization at home and follow- up with orthopedics. She was referred to Dr. Solis on-call. However, she did state that she also sees a [facility] orthopedic surgeon with whom she can follow-up with as well. She was written a prescription for 12 Percocet tablets to take for breakthrough pain. At this point in time, I feel she can be discharged to follow-up with the [facility] within the next week. Return instructions to the emergency department were reviewed. Disposition is discharged home in stable condition. History & Record Review Discussion w/independent historian: Patient and Family () Radiography Diagnostic Testing: Clinical Impression(s) from Imaging Studies Shoulder X-Ray 10/28/23 01:00 IMPRESSION: Probable impacted fracture of the humeral head/neck, with extension through the greater tuberosity. Electronically Signed: Merrill Rinaldi MD at 1:53 EST , Discharge Plan Triage Chief Complaint: Upper Extremity Injury ED Provider: Antonio Cline Dx/Rx/DC Orders Clinical Impression: Fracture of proximal end of right humerus, Fall Instructions: ED Mechanical Fall, ED Fracture, Shoulder Prescriptions: New oxycodone-acetaminophen [Percocet] 5-325 mg tablet 1 tab PO Q6H PRN (Reason: pain) 3 Days Qty: 12 0RF No Action losartan 50 mg tablet 1 tab PO BID meloxicam 15 mg tablet 1 tab DAILY omeprazole 40 mg capsule,delayed release(DR/EC) 1 cap PO DAILY loratadine 10 mg DAILY meclizine 25 mg tablet 25 mg PO TID PRN (Reason: dizziness) Qty: 14 0RF estradiol 0.01 % (0.1 mg/gram) cream 1 appful VAGINAL DAILY Primary Care Provider: Michelle Blanco Referrals: Michelle Blanco MD [Primary Care Provider] - Ash Solis DO [Med Staff - Active Staff] - 1 Week Activity Restrictions/Additional Instructions: Wear your sling and swath until cleared by orthopedics. You may follow-up with your orthopedic surgeon at [facility] as well. Disposition Disposition: Home, Self Care
[2023-10-28] MEDS: Oxycodone/Apap 5/325 Tablet PO (02:06)
== END 2023-10-28 03:13 | disposition home or self-care (01) ==
PROVIDERS: Emergency Provider Emergency Medicine; PCP Internal Medicine; Visit Provider Emergency Medicine
DX: S42.291A Other displaced fracture of upper end of right humerus, initial encounter for closed fracture (principal); W01.0XXA Fall on same level from slipping, tripping and stumbling without subsequent striking against object, initial encounter
CPT/HCPCS: 73030; 99282

== ENCOUNTER 2024-04-02 10:07 | Emergency (ER) | payer MEDICARE, SELFPAY ==
[2024-04-02 10:07] VITALS: BP 147/89; PULSE 121; RESP 18; TEMP 37.2; O2SAT 97
--- NOTE | 2024-04-02 10:53 | EX.ED.DYSGE1 ---
HPI History of Present Illness Chief Complaint: Abn Labs Informant: patient Onset/Context/Timing Onset: Weeks Context: Gradual Onset Timing: Continuous Quality: Sore Location: Neck Worsened by: Nothing Relieved by: Tylenol Narrative Narrative: Patient presents with I am sick for the past 2 weeks. Patient states she has been having a sore throat and fatigue that has gotten worse over the past few days. Patient saw nurse practitioner a few days ago and was scheduled to have an ultrasound and lab work. Patient had lab work drawn yesterday and saw her her primary nurse practitioner. Patient got the lab work back today and noted that her white blood cell count was elevated. Her nurse practitioner also saw her again today and noted there is increased redness to the right side of her neck area. Patient did have negative monotest. Patient admits to some low-grade fevers. Patient admits to some rhinorrhea. Patient also admits to occasional headaches. Patient states her fevers have been improving somewhat with Tylenol. PFSH PFS Medical History (Updated 04/02/24 @ 14:[address] Antolin Small DO) Rupture quadriceps tendon Cholecystectomy planned Vertigo Home Medications ?Medication ?Instructions ?Recorded ?Last Taken ?Type loratadine 10 mg DAILY 05/22/22 Unknown History losartan 50 mg tablet 1 tab PO BID 05/22/22 Unknown History meclizine 25 mg tablet 25 mg PO TID PRN dizziness #14 tabs 05/22/22 Unknown Rx meloxicam 15 mg tablet 1 tab DAILY 05/22/22 Unknown History omeprazole 40 mg capsule,delayed 1 cap PO DAILY 05/22/22 Unknown History release estradiol 0.01% (0.1 mg/gram) 1 appful vaginal DAILY 10/28/23 Unknown History vaginal cream oxycodone-acetaminophen 5 mg-325 1 tab PO Q6H PRN pain 3 days #12 10/28/23 Unknown Rx mg tablet (Percocet) tabs Allergy/AdvReac Type Severity Reaction Status Date / Time adhesive tape Allergy Rash Verified 10/28/23 00:43 Surgical History (Updated 04/02/24 @ 10:[address] Antolin Small DO) Hx of cholecystectomy History of hysterectomy Social History Smoking Status: Never smoker ROS ROS ED Constitutional Constitutional ED: Reports fever(s); Denies chills Eyes Eyes: Reports diplopia; Denies blurry vision or change in vision ENT ENT ED: Reports rhinorrhea and sore throat Cardiovascular Cardiovascular: Denies chest pain or palpitations Respiratory/Chest Respiratory/Chest: Denies cough or dyspnea Gastrointestinal Gastrointestinal: Denies nausea or vomiting Genitourinary Genitourinary ED: Denies dysuria or hematuria Musculoskeletal Musculoskeletal: Reports neck pain; Denies back pain Integumentary Denies abscess or rash Neurologic Neurologic: Reports headache(s); Denies weakness Allergic/Immunologic Allergic/Immunologic ED: Denies mouth swelling or urticaria EXAM Physical Exam Const Vital Signs: 04/02/24 10:07 04/02/24 11:38 04/02/24 13:00 Temperature 99 F 97.0 F L Temperature Source Temporal Temporal Pulse Rate 121 H 89 Respiratory Rate 18 16 Respiratory Effort Normal Respiratory Pattern Normal Blood Pressure 147/89 H 137/74 H Blood Pressure Mean 108 95 Pulse Ox 97 92 Oxygen Delivery Method Room Air Room Air Positive well nourished and well developed General Appearance ED: well developed and NAD HEENT Reports moist mucous membranes Neck Neck Narrative: There is tender lymphadenopathy noted in the supraclavicular areas bilaterally as well as the anterior cervical chain. There is some erythema and tenderness over the right lateral neck area. There is no fluctuance noted. Resp normal respiratory effort and clear to auscultation bilaterally Cardio regular rate and regular rhythm GI non-tender and non-distended Palpation: soft Extremity normal to inspection General Extremety ED: Negative for edema or tenderness General Extremity: Negative for edema Neuro oriented x3, CN's II-XII intact bilaterally and no sensory deficits noted Sensorium / Orientation: alert Motor Exam: strength 5/5 throughout Psych mental status grossly normal MDM MDM MDM Narrative Medical decision making narrative: Differential diagnosis includes lymphoma, abscess, viral infection, pneumonia, pharyngitis, dehydration, sepsis, and electrolyte abnormality. CBC will be obtained to assess for leukocytosis and anemia. Basic metabolic profile will be obtained to assess for electrolyte abnormality and renal function. CT scan of the soft tissue neck will be obtained to assess for abscess versus lymphadenopathy. COVID-19, influenza, and RSV PCR will be obtained to assess for viral illness. Serum lactate will be obtained to assess for sepsis. Lab Data Attestation: I reviewed the patient's lab results. Lab results narrative: CBC was reviewed. There is a mild leukocytosis of 14.0. The remainder is within normal limits. Basic metabolic profile was reviewed. There is a mild hypokalemia of 3.2. The remainder was within normal limits. Serum lactate was reviewed and was normal at 1.2. Urinalysis was reviewed. There is a leukocyte esterases of 100 with 10-25 white blood cells and 10-25 epithelial cells. There is 2+ bacteria. COVID-19 PCR was reviewed and was negative. Influenza PCR was reviewed and was negative for influenza A and influenza B. RSV PCR was reviewed and was negative. Labs: Laboratory Results - last 24 hr 04/02/24 04/02/24 11:13 12:07 WBC 14.0 H RBC 4.68 Hgb 13.0 Hct 42.3 MCV 90.4 MCH 27.8 MCHC 30.7 L RDW Std Deviation 47.4 H RDW Coeff of Annmarie 14.3 Plt Count 256 MPV 10.5 Immature Gran % (Auto) 0.400 Neut % (Auto) 84.2 H Lymph % (Auto) 3.7 L Greenwood % (Auto) 9.9 Eos % (Auto) 1.5 Baso % (Auto) 0.3 Absolute Neuts (auto) 11.8 H Absolute Lymphs (auto) 0.51 L Nucleated RBC % 0 Sodium 138 Potassium 3.2 L Chloride 102 Carbon Dioxide 27.0 Anion Gap 9 BUN 15 Creatinine 0.71 Estim Creat Clear Calc 73.86 Est GFR (MDRD) Af Amer 104 Est GFR (MDRD) Non-Af 86 BUN/Creatinine Ratio 21.0 H Glucose 119 H Lactic Acid 1.2 Calcium 9.6 Urine Color Sharifa Urine Clarity Clear Urine pH 6.5 Ur Specific Jerome 1.010 Urine Protein 100 H Urine Glucose (UA) Normal Urine Ketones 15 H Urine Occult Blood 25 H Urine Nitrite Negative Urine Bilirubin 3 H Urine Urobilinogen 4 H Ur Leukocyte Esterase 100 H Urine RBC 0-5 SEEN Urine WBC 10-25 SEEN Ur Squamous Epith Cells 10-25 SEEN Urine Bacteria 2+ Hyaline Casts 0-5 SEEN Urine Mucus 2+ Radiography Diagnostic Testing: Clinical Impression(s) from Imaging Studies Soft Tissue Neck CT 04/02/24 11:52 IMPRESSION: Inflammatory changes are seen in the right supraclavicular region with the several lymph nodes which are slightly enlarged. Electronically Signed: Romulo Hester MD at 13:02 EDT , CT scan of the soft tissue neck was obtained. There are inflammatory changes in the right supraclavicular region with several lymph nodes which are slightly enlarged. There is no mass or abscess noted. This was interpreted by the radiologist and was also independently reviewed by myself. Treatment and Re-Evaluation :: Patient was given IV fluids. Patient was advised of her findings. Patient is currently taking Augmentin. Patient was instructed to continue this as prescribed. Case was discussed with her primary care practitioner. She was advised of the findings. She will follow-up with patient as scheduled. Patient was instructed to take Tylenol for any fevers or chills. Patient was instructed to return if worse in any way. Patient was instructed to follow-up with her primary care provider in 6 days as scheduled. Patient understood and was agreeable with the plan. All questions were answered. Discharge Plan Triage Chief Complaint: Abn Labs ED Provider: Antolin Small Dx/Rx/DC Orders Clinical Impression: Cellulitis, Lymphadenopathy of head and neck region Instructions: ED Cellulitis Prescriptions: No Action losartan 50 mg tablet 1 tab PO BID meloxicam 15 mg tablet 1 tab DAILY omeprazole 40 mg capsule,delayed release(DR/EC) 1 cap PO DAILY loratadine 10 mg DAILY meclizine 25 mg tablet 25 mg PO TID PRN (Reason: dizziness) Qty: 14 0RF estradiol 0.01 % (0.1 mg/gram) cream 1 appful VAGINAL DAILY oxycodone-acetaminophen [Percocet] 5-325 mg tablet 1 tab PO Q6H PRN (Reason: pain) 3 Days Qty: 12 0RF Primary Care Provider: Michelle Blanco Referrals: Michelle Blanco MD [Primary Care Provider] - Keep [facility]la[facility] appointment Print Language: Zimbabwean Disposition Disposition: Home, Self Care Discharge Date/Time: 04/02/24 14:30
[2024-04-02 11:23] LABS: Absolute Lymphocyte Count 0.51 X10^3/uL (0.83-4.51); Absolute Neutrophil Count 11.8 X10^3/uL (2.0-7.7); Basophil# 0.04 X10^3/uL; Basophil% 0.3 % (0-1); Eosinophil# 0.21 X10^3/uL; Eosinophils% 1.5 % (0-5); Hematocrit 42.3 % (37-47); Lymphocyte # 0.51 X10^3/ul (0.83-4.51); Lymphocyte % 3.7 % (19-41); Mean Corp Hgb Conc 30.7 g/dL (32-36); Mean Corpuscular Hgb 27.8 pg (27.0-32.0); Mean Corpuscular Volume 90.4 fL (81-99); Mean Platelet Vol. 10.5 fl (6.2-12.0); Monocyte# 1.38 X10^3/uL; Monocyte% 9.9 % (0-10); NRBC Flagged by Analyzer 0 % (0-5); Neutrophil # 11.78 X10^3/uL (2.7-7.7); Neutrophil % 84.2 % (47-70); POSITIVE DIFFERENTIAL YES; Platelet Count 256 K/mm3 (150-450); RBC Distribution Width CV 14.3 % (11.6-14.6); RBC Distribution Width SD 47.4 fl (35.1-43.9); Red Blood Count 4.68 M/mm3 (4.2-5.4)
[2024-04-02] MEDS: 0.9% Normal Saline (1000mL) 1,000 ML 1000 ML IV (11:36)
[2024-04-02 11:37] VITALS: BMI 41.1
[2024-04-02 11:45] LABS: Anion Gap 9 (5-15); BUN 15 mg/dL (7-18); Calcium,Total 9.6 mg/dL (8.5-10.1); Chloride 102 mmol/L (98-107); Creatinine, Serum 0.71 mg/dL (0.55-1.02); EST Glomerular Filtration Rate 86 mL/min (>60); Est Glom Filt Rate - Afr Amer 104 mL/min (>60); Estimated Creatinine Clearance 73.86 ml/min; Glucose 119 mg/dL (74-106); Potassium 3.2 mmol/L (3.5-5.1); Sodium Level 138 mmol/L (136-145)
--- NOTE | 2024-04-02 11:52 | CT_ITS ---
STUDY: CT SOFT TISSUE NECK WITH CONTRAST REASON FOR EXAM: Female, 73 years old. Pain, swelling RADIATION DOSAGE (If Supplied By Facility): CTDIvol = ( 17.51 ) mGy, DLP = ( 529.40 ) mGycm TECHNIQUE: The patient was scanned in a multi-detector CT scanner. High resolution transaxial imaging was performed following intravenous administration of IV 100mL Isovue-370. Sagittal and coronal images were reconstructed. Individualized dose optimization techniques were used for this CT. COMPARISON: None. FINDINGS: 9.1 mm hypodensity in the anterior aspect of the right lobe of the thyroid. Inflammatory changes are seen in the right supraclavicular region. Small lymph nodes are seen. These measure within normal limits. Clinical correlation recommended. Normal bilateral parotid glands. Normal bilateral hair dresser spaces. Normal bilateral parapharyngeal spaces. Normal bilateral carotid spaces. Normal bilateral sublingual and submandibular glands and spaces. Normal visualized nasopharynx. Normal retropharyngeal space. Normal perivertebral space. Normal visualized bilateral faucial tonsils. The visualized tongue, tongue base and oropharynx are normal. There are minimally enlarged lymph nodes of the neck, with preservation of normal martha architecture, consistent with a reactive lymph hyperplasia. There is no demonstrated solid or cystic mass lesion. There is no abnormal contrast enhancement. Normal epiglottis, bilateral vallecula and hypopharynx. The pre-epiglottic and paraglottic adipose spaces are normal. Normal visualized bilateral piriform sinuses, aryepiglottic folds, vocal cords, and arytenoid-cricoid articulations. Normal subglottic trachea. Normal bilateral lobes of the thyroid gland. Normal visualized pulmonary apices. Normal visualized paranasal sinuses. There is multilevel degenerative changes of the cervical spine. CT/Soft Tissue Neck WITH Contrast IMPRESSION: Inflammatory changes are seen in the right supraclavicular region with the several lymph nodes which are slightly enlarged. Electronically Signed: Romulo Hester MD at 13:02 EDT ,
[2024-04-02 11:56] LABS: Lactic Acid 1.2 mmol/L (0.4-1.9)
[2024-04-02 12:22] LABS: Color, Urine Amber (Yellow); Glucose, Dipstick Normal (Normal); Ketone-Dipstick 15 mg/dl (Negative); Leukocyte Esterase-Dipstick 100 /ul (Negative); Nitrite-Dipstick Negative (Negative); Occult Blood-Urine 25 /ul (Negative); Protein-Dipstick 100 mg/dl (Negative); Urine Clarity Clear (Clear); Urine Urobilinogen 4 mg/dl (Normal); Urine pH 6.5 (5.0 - 8.0)
[2024-04-02 12:36] LABS: Urine Bilirubin Dipstick 3 mg/dL (Negative)
[2024-04-02 12:41] LABS: Bacteria 2+ /hpf (None Seen); Red Blood Cells-Urine 0-5 SEEN /hpf (0-5); Squamous Epithelial Cells - UA 10-25 SEEN /hpf (5-10); White Blood Cells 10-25 SEEN /hpf (0-5)
[2024-04-02 12:45] LABS: Hyaline Cast 0-5 SEEN /lpf (0-5); Mucous, Urine 2+ /hpf (<or=2+)
[2024-04-02 13:00] VITALS: BP 137/74; PULSE 89; RESP 16; TEMP 36.1; O2SAT 92
== END 2024-04-02 14:30 | disposition home or self-care (01) ==
PROVIDERS: Emergency Provider Emergency Medicine; PCP Internal Medicine; Visit Provider Emergency Medicine
DX: R59.0 Localized enlarged lymph nodes (principal); L03.90 Cellulitis, unspecified; R50.9 Fever, unspecified
CPT/HCPCS: 36415; 70491; 80048; 81001; 83605; 85025; 87040; 87631; 96360; 99283; Q9967; A4216

== ENCOUNTER 2024-04-03 21:30 | Emergency (ER) | payer MEDICARE, SELFPAY ==
[2024-04-03 21:32] VITALS: BP 139/104; PULSE 109; RESP 15; TEMP 36.9; O2SAT 100; BMI 40.7
--- NOTE | 2024-04-03 22:24 | EX.ED.DYSGE1 ---
HPI History of Present Illness Chief Complaint: General Illness Informant: patient Narrative Narrative: Patient states he has been sick for about 2 weeks, she been doing a lot of traveling lately because of a out of town, she states she was seen by urgent care then her PCP nurse practitioner, then here in the emergency department which was yesterday. She had a leukocytosis as an outpatient of 22, yesterday was 14. She states I am worried that it might be going back up. She is been taking Augmentin that she was prescribed 3 days ago. She states she does not feel better today and noticed some subjective fevers and chills and is concerned that she is not feeling better, although she admits that the redness, swelling, pain on her right neck is better. PFSH PFSH Medical History Rupture quadriceps tendon Cholecystectomy planned [facility] Home Medications ?Medication ?Instructions ?Recorded ?Last Taken ?Type loratadine 10 mg DAILY 05/22/22 Unknown History losartan 50 mg tablet 1 tab PO BID 05/22/22 Unknown History meclizine 25 mg tablet 25 mg PO TID PRN dizziness #14 tabs 05/22/22 Unknown Rx meloxicam 15 mg tablet 1 tab DAILY 05/22/22 Unknown History omeprazole 40 mg capsule,delayed 1 cap PO DAILY 05/22/22 Unknown History release estradiol 0.01% (0.1 mg/gram) 1 appful vaginal DAILY 10/28/23 Unknown History vaginal cream oxycodone-acetaminophen 5 mg-325 1 tab PO Q6H PRN pain 3 days #12 10/28/23 Unknown Rx mg tablet (Percocet) tabs Allergy/AdvReac Type Severity Reaction Status Date / Time adhesive tape Allergy Rash Verified 04/03/24 21:36 Surgical History Hx of cholecystectomy History of hysterectomy Social History Smoking Status: Never smoker ROS ROS ED Constitutional Constitutional ED: Reports chills, fever(s) and subjective Eyes Eyes: Denies change in vision or diplopia ENT ENT ED: Reports post nasal drip, rhinorrhea and other Details: BERRY when fever ; Denies change in voice, ear pain, loss taste/smell, nasal congestion, sinus pain or sore throat Cardiovascular Cardiovascular: Denies chest pain or palpitations Respiratory/Chest Respiratory/Chest: Reports cough; Denies dyspnea Gastrointestinal Gastrointestinal: Denies abdominal pain, diarrhea, nausea or vomiting Genitourinary Genitourinary ED: Denies dysuria or hematuria Musculoskeletal Musculoskeletal: Denies back pain or neck pain Integumentary Denies abscess or rash Neurologic Neurologic: Reports headache(s); Denies paresthesias or weakness Psychiatric Psychiatric: Denies suicidal thoughts EXAM Physical Exam Const Vital Signs: 04/03/24 21:32 04/03/24 22:32 Temperature 98.4 F Temperature Source Temporal Pulse Rate 109 H Respiratory Rate 15 Respiratory Effort Normal Non-Labored Respiratory Pattern Normal Blood Pressure 139/104 H Blood Pressure Mean 115 Pulse Ox 100 Oxygen Delivery Method Room Air Positive well nourished and well developed General Appearance ED: well developed and NAD HEENT Reports moist mucous membranes normocephalic and atraumatic Eyes PERRL and EOMs intact bilaterally Neck full ROM, supple and no JVD Neck Narrative: Tender right supraclavicular lymphadenopathy with some mild overlying erythema that the patient states is improved. 1 single mobile small tender lymph node left superficial cervical base of the neck laterally, no overlying erythema. No other palpable lymphadenopathy. Resp normal respiratory effort and clear to auscultation bilaterally Cardio regular rate, regular rhythm and no murmurs Rate: other Other Details: Mild tachycardia GI non-tender and non-distended Auscultation: normoactive bowel sounds Palpation: soft Back/Spine no CVA tenderness General Back: other FROM Extremity normal to inspection General Extremety ED: Negative for edema, pulses abnormal or tenderness General Extremity: Negative for edema or pulses abnormal Neuro oriented x3, CN's II-XII intact bilaterally and no sensory deficits noted Sensorium / Orientation: awake and alert Motor Exam: strength 5/5 throughout Psych Mood & Affect: anxious Skin no rashes or lesions noted and no wounds Skin Narrative: Other than slight erythema where there is tenderness over the right supraclavicular nodes that are inflamed, no other skin changes or rashes MDM MDM MDM Narrative Medical decision making narrative: I reviewed the patient's prior ER visit from yesterday. She told me her white blood count was 22 with what sounds like a left shift several days ago, yesterday was 14, she had a CT of the neck soft tissues that showed supraclavicular lymphadenopathy without cellulitis or an abscess and no other acute abnormality aside from some other presumed inflamed/reactive lymph nodes. She has had a monotest that was negative. She states she had no radiography before coming here to the ER yesterday and today. I repeated her labs. Her white blood count is down to 7.4 and there is not a strong leftward shift. She has a mild monocytosis of unknown significance. Her renal function and electrolytes are normal. 2 view chest x-ray my interpretation shows a large hiatal hernia but no acute infiltrates radiology was in agreement. Differential here includes supraclavicular lymphadenopathy with the with reactive erythema overlying it, versus cellulitis that is causing the underlying lymphadenopathy. Either way I think the Augmentin she is on is appropriate and she states it is improved, and I think since she has respiratory symptoms the Augmentin is reasonable and I would not change it right now. I did send a viral respiratory panel, since a lot of the symptoms seem viral and she has nothing else objective other than the lymphadenopathy, which is localized for unknown reasons. She has an appointment next week with her PCP, she is given some ibuprofen at discharge and supportive care advised vital signs are good with pulse ox 100% on room air and she stable for discharge home, again no indication to change her antibiotic or other treatment right now. She is in agreement with this plan and reassured. History & Record Review Discussion w/independent historian: Patient and Significant other Additional record(s) reviewed:: Prior ED visit Lab Data Attestation: I reviewed the patient's lab results. Labs: Laboratory Results - last 24 hr 04/03/24 22:28 WBC 7.4 RBC 4.41 Hgb 12.4 Hct 40.4 MCV 91.6 MCH 28.1 MCHC 30.7 L RDW Std Deviation 46.8 H RDW Coeff of Annmarie 13.7 Plt Count 306 MPV 10.3 Immature Gran % (Auto) 0.500 Neut % (Auto) 74.9 H Lymph % (Auto) 8.6 L [place] % (Auto) 11.2 H Eos % (Auto) 4.3 Baso % (Auto) 0.5 Absolute Neuts (auto) 5.5 Absolute Lymphs (auto) 0.64 L Nucleated RBC % 0 Sodium 140 Potassium 3.4 L Chloride 106 Carbon Dioxide 27.0 Anion Gap 7 BUN 12 Creatinine 0.68 Estim Creat Clear Calc 73.42 Est GFR (MDRD) Af Amer 109 Est GFR (MDRD) Non-Af 90 BUN/Creatinine Ratio 17.5 Glucose 130 H Calcium 9.3 Radiography Diagnostic Testing: Clinical Impression(s) from Imaging Studies Chest X-Ray 04/03/24 22:35 IMPRESSION: Retrocardiac opacity which may represent a hiatal hernia. Otherwise clear lungs. Electronically Signed: Yovani Crowley MD at 22:47 EDT , Discharge Plan Triage Chief Complaint: General Illness ED Provider: Torin Oliva Dx/Rx/DC Orders Clinical Impression: Lymphadenopathy of head and neck region, URI (upper respiratory infection) Instructions: Lymphadenopathy Prescriptions: No Action losartan 50 mg tablet 1 tab PO BID meloxicam 15 mg tablet 1 tab DAILY omeprazole 40 mg capsule,delayed release(DR/EC) 1 cap PO DAILY loratadine 10 mg DAILY meclizine 25 mg tablet 25 mg PO TID PRN (Reason: dizziness) Qty: 14 0RF estradiol 0.01 % (0.1 mg/gram) cream 1 appful VAGINAL DAILY oxycodone-acetaminophen [Percocet] 5-325 mg tablet 1 tab PO Q6H PRN (Reason: pain) 3 Days Qty: 12 0RF Primary Care Provider: Michelle Blanco Referrals: Michelle Blanco MD [Primary Care Provider] - Keep Wenceslao appointment Activity Restrictions/Additional Instructions: We sent off a respiratory PCR panel that will either result on 04/04 or 04/05. If you want to follow the directions at the end of this packet and access the portal you can look at the results, or you can call your PCP to report them to you. Print Language: Nepalese Disposition Disposition: Home, Self Care
[2024-04-03 22:34] LABS: Absolute Lymphocyte Count 0.64 X10^3/uL (0.83-4.51); Absolute Neutrophil Count 5.5 X10^3/uL (2.0-7.7); Basophil# 0.04 X10^3/uL; Basophil% 0.5 % (0-1); Eosinophil# 0.32 X10^3/uL; Eosinophils% 4.3 % (0-5); Hematocrit 40.4 % (37-47); Hemoglobin 12.4 g/dL (12.0-15.0); Lymphocyte # 0.64 X10^3/ul (0.83-4.51); Lymphocyte % 8.6 % (19-41); Mean Corp Hgb Conc 30.7 g/dL (32-36); Mean Corpuscular Hgb 28.1 pg (27.0-32.0); Mean Corpuscular Volume 91.6 fL (81-99); Mean Platelet Vol. 10.3 fl (6.2-12.0); Monocyte# 0.83 X10^3/uL; Monocyte% 11.2 % (0-10); NRBC Flagged by Analyzer 0 % (0-5); Neutrophil # 5.53 X10^3/uL (2.7-7.7); Neutrophil % 74.9 % (47-70); Platelet Count 306 K/mm3 (150-450); RBC Distribution Width CV 13.7 % (11.6-14.6); RBC Distribution Width SD 46.8 fl (35.1-43.9); Red Blood Count 4.41 M/mm3 (4.2-5.4); White Blood Count 7.4 K/mm3 (4.4-11.0)
--- NOTE | 2024-04-03 22:35 | RAD_ITS ---
INDICATION: fever, cough EXAMINATION/TECHNIQUE: X-RAY - XR Chest 2 Views COMPARISON: Prior study dated: 10/28/2023 FINDINGS: LINES/DEVICES: None. LUNGS: The lungs are well expanded. There is a retrocardiac opacity which may represent a hiatal hernia. No other consolidation. No effusion or edema. No pneumothorax. MEDIASTINUM AND CARDIOVASCULAR STRUCTURES: Cardiac silhouette not enlarged. Central airways and mediastinal contour are unremarkable. BONES AND SOFT TISSUES: No acute abnormality. RAD/Chest PA and Lateral IMPRESSION: Retrocardiac opacity which may represent a hiatal hernia. Otherwise clear lungs. Electronically Signed: Yovani Crowley MD at 22:47 EDT ,
[2024-04-03 22:53] LABS: Anion Gap 7 (5-15); BUN 12 mg/dL (7-18); BUN/Creat Ratio 17.5 RATIO (10-20); Calcium,Total 9.3 mg/dL (8.5-10.1); Chloride 106 mmol/L (98-107); Creatinine, Serum 0.68 mg/dL (0.55-1.02); EST Glomerular Filtration Rate 90 mL/min (>60); Est Glom Filt Rate - Afr Amer 109 mL/min (>60); Estimated Creatinine Clearance 73.42 ml/min; Glucose 130 mg/dL (74-106); Potassium 3.4 mmol/L (3.5-5.1); Sodium Level 140 mmol/L (136-145)
[2024-04-03 23:31] VITALS: BP 165/104; PULSE 68; RESP 20; TEMP 37.3; O2SAT 93
[2024-04-03] MEDS: Ibuprofen 200 MG Tablet 400 MG PO (23:38)
== END 2024-04-03 23:38 | disposition home or self-care (01) ==
PROVIDERS: Emergency Provider Emergency Medicine; PCP Internal Medicine; Visit Provider Emergency Medicine
DX: R59.0 Localized enlarged lymph nodes (principal); J06.9 Acute upper respiratory infection, unspecified
CPT/HCPCS: 71046; 80048; 85025; 87633; 99283; A4216

== ENCOUNTER 2024-04-26 12:51 | Emergency (ER) | payer MEDICARE, SELFPAY ==
[2024-04-26] VITALS (7 sets, daily range): BP systolic 145–157; BP diastolic 95–115; PULSE 81–107; RESP 16–18; TEMP 36.3–37.2; O2SAT 95–98; BMI 38.6
--- NOTE | 2024-04-26 14:30 | EKG12_ITS ---
Test Reason : EDEMA Blood Pressure : / mmHG Vent. Rate : 101 BPM Atrial Rate : 101 BPM P-R Int : 168 ms QRS Dur : 088 ms QT Int : 326 ms P-R-T Axes : 031 004 021 degrees QTc Int : 422 ms Sinus tachycardia Otherwise normal ECG Confirmed by Clyde Wall ([id number]), editorial specialist REY CRAWLEY ([id number]) on 04/27/2024 12:53:05 PM Referred By: Confirmed By:Clyde Wall
--- NOTE | 2024-04-26 14:30 | CT_ITS ---
STUDY: CT BRAIN WITHOUT CONTRAST REASON FOR EXAM: Female, 73 years old. difficulty walking RADIATION DOSAGE (If Supplied By Facility): CTDIvol = ( 44.99 ) mGy, DLP = ( 796.11 ) mGycm TECHNIQUE: Transaxial CT imaging of the brain was performed without administration of intravenous contrast material. Individualized dose optimization techniques were used for this CT. COMPARISON: May 22, 2022 FINDINGS: Normal soft tissue structures. Normal calvarium. Normal size ventricles and extra-axial spaces for the patient''s age. Normal white matter tracts of the cerebral hemispheres. Normal basal ganglia and thalami. Normal brainstem. Normal cerebellum. There is no intracranial hemorrhage. There are no findings of an acute ischemic infarction. Normal visualized paranasal sinuses. No significant change since prior exam CT/Brain/Head without Contrast IMPRESSION: Normal unenhanced CT scan of the brain. Electronically Signed: Ravinder eNttles MD at 16:09 EDT ,
--- NOTE | 2024-04-26 14:31 | EX.ED.DYSGE1 ---
HPI History of Present Illness Chief Complaint: Edema Informant: patient Onset/Context/Timing Onset: Weeks Context: Gradual Onset Timing: Continuous Current Severity: Mild Maximum Severity: Mild Narrative Narrative: 73-year-old female had infected lymph nodes was treated by nurse practitioner to [facility] with Augmentin. She had elevated white counts that returned to normal. She was seen in the emergency department on mid March and a CT of her neck which showed lymph node inflammation but no cancer. States she has been fatigued. And brain fog at times with trouble with her balance. Denies fall. Denies recent illness. Did get diarrhea after using the antibiotic Augmentin. Prior similar symptoms: Yes Recent Illness/Hospitalization: No PFSH PFSH Medical History Rupture quadriceps tendon Cholecystectomy planned [facility] Home Medications ?Medication ?Instructions ?Recorded ?Last Taken ?Type loratadine 10 mg DAILY 05/22/22 Unknown History losartan 50 mg tablet 1 tab PO BID 05/22/22 Unknown History meclizine 25 mg tablet 25 mg PO TID PRN dizziness #14 tabs 05/22/22 Unknown Rx meloxicam 15 mg tablet 1 tab DAILY 05/22/22 Unknown History omeprazole 40 mg capsule,delayed 1 cap PO DAILY 05/22/22 Unknown History release estradiol 0.01% (0.1 mg/gram) 1 appful vaginal DAILY 10/28/23 Unknown History vaginal cream oxycodone-acetaminophen 5 mg-325 1 tab PO Q6H PRN pain 3 days #12 10/28/23 Unknown Rx mg tablet (Percocet) tabs Allergy/AdvReac Type Severity Reaction Status Date / Time adhesive tape Allergy Rash Verified 04/26/24 12:59 Surgical History Hx of cholecystectomy History of hysterectomy Social History Smoking Status: Never smoker ROS ROS ED ROS Narrative Diarrhea post antibiotic. Fatigue. Review of Systems ROS Unobtainable: Denies due to encephalopathy Constitutional Constitutional ED: Denies chills or fever(s) Eyes Eyes: Denies blurry vision ENT ENT ED: Denies ear pain Cardiovascular Cardiovascular: Denies chest pain or palpitations Respiratory/Chest Respiratory/Chest: Denies cough or dyspnea Gastrointestinal Gastrointestinal: Denies abdominal pain Genitourinary Genitourinary ED: Denies dysuria or hematuria Musculoskeletal Musculoskeletal: Denies arthralgias Integumentary Denies abscess or Abrasions Neurologic Neurologic: Denies headache(s) Psychiatric Psychiatric: Denies anxiety or depression Endocrine Endocrinology: Denies cold intolerance Hematologic/Lymphatic Hematologic/Lymphatic: Reports none Allergic/Immunologic Allergic/Immunologic ED: Denies mouth swelling, tongue swelling or urticaria EXAM Physical Exam Narrative Exam Narrative: Well-appearing 71-year-old female. Vital signs stable afebrile. Accompanied by family member. H EENT exam unremarkable. Neck nontender no lymphadenopathy. Trachea midline. Lungs clear to auscultation bilaterally. Heart regular rhythm rate about 80 no murmur. Chest wall nontender. No axillary lymphadenopathy. Abdomen soft nontender. Moving all 4 extremities. 5 of 5 medical chief technician strength. Dorsi plantarflexion intact. Nontender no edema. Neurologically she is awake and alert. Answering questions following commands. NIH 0. She got up out of bed and ambulate without any difficulty. Back exam normal. Const Vital Signs: 04/26/24 12:52 04/26/24 12:58 04/26/24 13:51 Temperature 97.3 F L 97.3 F L Temperature Source Temporal Temporal Pulse Rate 89 82 Respiratory Rate 16 16 Respiratory Effort Normal Non-Labored Respiratory Pattern Normal Blood Pressure 157/115 H 157/110 H Blood Pressure Mean 129 125 Pulse Ox 97 97 Oxygen Delivery Method Room Air Room Air 04/26/24 13:58 04/26/24 14:00 04/26/24 15:00 Temperature 97.5 F L 97.5 F L 97.6 F L Temperature Source Temporal Temporal Temporal Pulse Rate 104 H 107 H 87 Respiratory Rate 18 18 16 Respiratory Effort Respiratory Pattern Blood Pressure 154/95 H 145/102 H 150/98 H Blood Pressure Mean 114 116 115 Pulse Ox 96 95 97 Oxygen Delivery Method Room Air Room Air Room Air Positive well nourished and well developed; Negative for cachectic, contractures or unkempt General Appearance ED: well developed and NAD; Negative for unkempt, cachectic, contractures, cyanotic, diaphoretic or pallor Nutritional Appearance: Negative for cachectic HEENT Reports moist mucous membranes; Denies dry mucous membranes Negative for trauma or tenderness Mouth ED: No dry mucous membranes Mouth: No dry mucous membranes Eyes PERRL and EOMs intact bilaterally General Eye ED: Negative for pale conjunctiva, scleral icterus or other Neck no lymphadenopathy, supple and no JVD General: Negative for tenderness Lymph Lymphatic: Negative for other Chest Wall inspection of chest normal and palpation of chest normal Chest: Negative for other Resp normal respiratory effort and clear to auscultation bilaterally Effort and Inspection: Negative for retractions Auscultation: Negative for rales, rhonchi or wheezes Cardio regular rate, regular rhythm, S1 normal heart sound, S2 normal heart sound and no murmurs Palpation: Negative for palpable S3 or palpable S4 Rate: Negative for bradycardia or tachycardic Rhythm: Negative for abnormal rhythm GI normal to inspection, nondistended, normoactive bowel sounds, non-tender, non-distended and no masses Inspection: Negative for abdominal distention Auscultation: normoactive bowel sounds Palpation: soft; Negative for tender, guarding or rebound tenderness present Back/Spine no CVA tenderness General Back: Negative for CVA tenderness Cervical Spine: Negative for cervical spine tenderness Thoracic Spine / Upper Back: Negative for thoracic spinal tenderness Lumbar Spine / Lower Back: Negative for lumbar spinal tenderness Extremity normal to inspection Extremity Narrative: Right foot exam normal. General Extremety ED: Negative for edema or tenderness General Extremity: Negative for edema Neuro oriented x3 and CN's II-XII intact bilaterally Sensorium / Orientation: alert; Negative for orientation impaired, lethargic or stuporous Motor Exam: strength 5/5 throughout; Negative for general weakness or strength abnormal Psych mental status grossly normal Appearance: Negative for unkempt Attitude: No agitated Mood & Affect: anxious; Negative for depressed or tearful Skin no rashes or lesions noted, no wounds and skin turgor normal General Skin Exam: elasticity normal; Negative for jaundice or pallor Lesions: No lesion noted Rashes: No rashes noted Trauma: Negative for abrasion Wounds: Negative for wounds noted MDM MDM MDM Narrative Medical decision making narrative: 73-year-old female complaining of fatigue for weeks and being off balance. Exam is benign. CAT scan labs are being obtained. She was seen in the emergency department about 3 weeks ago that workup was negative. Repeat exam patient is doing well at 3:55 PM. She and I and her went over test results that were unremarkable. We are awaiting the formal radiology interpretation of her CAT scan of her brain. As well as it is okay she will be discharged home. She has had some weight loss over the last several weeks. She can follow-up with her primary care physician for further evaluation of that. History & Record Review Discussion w/independent historian: Patient and Family Additional record(s) reviewed:: Prior outpatient record, Prior ED visit and Prior labs Lab Data Attestation: I reviewed the patient's lab results. Lab results narrative: CBC normal. White count 8. H&H 12 and 41. Platelets 301. Electrolytes show gap 5. Normal BUN 16 creatinine 0.7. Liver tests are normal. Labs: Laboratory Results - last 24 hr 04/26/24 14:40 WBC 8.2 RBC 4.51 Hgb 12.7 Hct 41.5 MCV 92.0 MCH 28.2 MCHC 30.6 L RDW Std Deviation 48.2 H RDW Coeff of Annmarie 14.3 Plt Count 301 MPV 10.5 Immature Gran % (Auto) 0.400 Neut % (Auto) 67.3 Lymph % (Auto) 21.0 [place] % (Auto) 8.6 Eos % (Auto) 1.7 Baso % (Auto) 1.0 Absolute Neuts (auto) 5.6 Absolute Lymphs (auto) 1.73 Nucleated RBC % 0 Sodium 138 Potassium 3.6 Chloride 105 Carbon Dioxide 28.0 Anion Gap 5 BUN 16 Creatinine 0.79 Estim Creat Clear Calc 71.24 Est GFR (MDRD) Af Amer 92 Est GFR (MDRD) Non-Af 76 BUN/Creatinine Ratio 20.2 H Glucose 120 H Calcium 9.5 Total Bilirubin 0.40 AST 16 ALT 20 Alkaline Phosphatase 74 Total Protein 7.4 Albumin 3.5 Globulin 3.9 Albumin/Globulin Ratio 0.9 Rhythm Strip Rhythm Strip: Sinus Tach Rate: 101 Ectopy: None EKG Initial EKG: Attestation: I personally reviewed and interpreted this EKG as follows: Interpretation: No Acute Injury Pattern and Sinus Tachycardia Comments: Sinus tachycardia rate of 101 no acute signs of DC, ischemia or dysrhythmia. Discharge Plan Triage Chief Complaint: Edema ED Provider: Godwin Langford Dx/Rx/DC Orders Clinical Impression: Fatigue, Weight loss, History of hypertension Prescriptions: No Action losartan 50 mg tablet 1 tab PO BID meloxicam 15 mg tablet 1 tab DAILY omeprazole 40 mg capsule,delayed release(DR/EC) 1 cap PO DAILY loratadine 10 mg DAILY meclizine 25 mg tablet 25 mg PO TID PRN (Reason: dizziness) Qty: 14 0RF estradiol 0.01 % (0.1 mg/gram) cream 1 appful VAGINAL DAILY oxycodone-acetaminophen [Percocet] 5-325 mg tablet 1 tab PO Q6H PRN (Reason: pain) 3 Days Qty: 12 0RF Primary Care Provider: Michelle Blanco Referrals: Michelle Blanco MD [Primary Care Provider] - Keep Wenceslao appointment Activity Restrictions/Additional Instructions: Your test and lab work today were unremarkable. Follow-up with your primary care physician for further evaluation of your weight loss and fatigue. Print Language: Croatian Disposition Disposition: Home, Self Care
[2024-04-26 14:50] LABS: Absolute Lymphocyte Count 1.73 X10^3/uL (0.83-4.51); Absolute Neutrophil Count 5.6 X10^3/uL (2.0-7.7); Basophil# 0.08 X10^3/uL; Eosinophil# 0.14 X10^3/uL; Eosinophils% 1.7 % (0-5); Hematocrit 41.5 % (37-47); Hemoglobin 12.7 g/dL (12.0-15.0); Lymphocyte # 1.73 X10^3/ul (0.83-4.51); Mean Corp Hgb Conc 30.6 g/dL (32-36); Mean Corpuscular Hgb 28.2 pg (27.0-32.0); Mean Platelet Vol. 10.5 fl (6.2-12.0); Monocyte# 0.71 X10^3/uL; Monocyte% 8.6 % (0-10); NRBC Flagged by Analyzer 0 % (0-5); Neutrophil # 5.55 X10^3/uL (2.7-7.7); Neutrophil % 67.3 % (47-70); Platelet Count 301 K/mm3 (150-450); RBC Distribution Width CV 14.3 % (11.6-14.6); RBC Distribution Width SD 48.2 fl (35.1-43.9); Red Blood Count 4.51 M/mm3 (4.2-5.4); White Blood Count 8.2 K/mm3 (4.4-11.0)
[2024-04-26 15:06] LABS: ALB/GLOB Ratio 0.9 RATIO (0.9-2.4); AST(SGOT) 16 U/L (15-37); Alanine Aminotransfer ALT/SGPT 20 U/L (13-56); Albumin, Serum 3.5 g/dL (3.2-5.0); Alkaline Phosphatase 74 U/L (45-117); Anion Gap 5 (5-15); BUN 16 mg/dL (7-18); BUN/Creat Ratio 20.2 RATIO (10-20); Calcium,Total 9.5 mg/dL (8.5-10.1); Chloride 105 mmol/L (98-107); Creatinine, Serum 0.79 mg/dL (0.55-1.02); EST Glomerular Filtration Rate 76 mL/min (>60); Est Glom Filt Rate - Afr Amer 92 mL/min (>60); Estimated Creatinine Clearance 71.24 ml/min; Globulin 3.9 g/dL (2.2-4.2); Glucose 120 mg/dL (74-106); Potassium 3.6 mmol/L (3.5-5.1); Protein, Total 7.4 g/dL (6.4-8.2); Sodium Level 138 mmol/L (136-145)
== END 2024-04-26 16:20 | disposition home or self-care (01) ==
PROVIDERS: Emergency Provider Emergency Medicine; PCP Internal Medicine; Visit Provider Emergency Medicine
DX: R53.83 Other fatigue (principal); R63.4 Abnormal weight loss; I10 Essential (primary) hypertension; Z68.38 Body mass index [BMI] 38.0-38.9, adult; Z79.899 Other long term (current) drug therapy
CPT/HCPCS: 70450; 80053; 85025; 93005; 99283; A4216

== ENCOUNTER 2025-07-08 13:30 | Outpatient (RCR) | payer MEDICARE, SELFPAY ==
--- NOTE | 2025-06-28 14:00 | HP.PTEVAL ---
Patient's Visit Information Visit Information Visit Information: JESSICA MERRILL is a 74 year old F referred to Physical Therapy by ANGEL WIGGINS NP-C with a diagnosis of Chronic L knee pain. Date of Evaluation: 06/28/25 Physical Therapist: Antolin Kahn, DPT, OCS, CSCS Visit Plan Frequency: 3x /Week Duration: 2-4 Weeks Plan: 3x/week for 2-4 weeks for: IE HEP prone quad stretch 30" 5x daily. Treat with slow progression and instruction in machine based gym program to include knee ext if tolerated, leg curl, leg press, hip abd, hip add, back ext, abs, heel raises, pull down, row. Progress until tolerated adn I. Subjective Subjective: "Pearl" Used to work out at but tried 2 months ago and could not walk the next day. It had been a while since her previous workout adn PT and maintenance trainer. Gave it a week and then went to doctor adn got steroids which took care of all the pain. Was walking on TM 30 minutes slowly, 2nd day resistance adn 3rd day functional room. Functional room flared her up , maybe with supine ball twists and bugs. H/o two knee injuries in youth and tendon tears in L knee around 2009. Knee had been OK since then. L knee flared up. X ray showed OA bone on bone medial. Now scared to get back to workout. Basic ADLs at home: all I. Steps to basement and does not need them, once per week wihtout a problem but holds on and uses R. Lives with . Pain is not a big issue but is afraid to exercise. Can get on and off floor but it takes some time. 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 Wants gym program at . Objective Objective: Sensation LE WNL to gross light touch strength hips 3+ abd and xt adn 4- flexion, SLR without lag B. Knee xt adn flexion 4- B, ankles 4-/5 all directions tightness in HS and quad mod B. -25 90/90 tests. + L scour. - bounce home. Walksing without gait deficits into PT I. Trasnfer chair and bed without pain I. AROM L knee -2 to 108 and R knee -1 to 120. hip aROM to 5 ext B and WNL otherwise. ankles AROM WNL Balance/Special Test Scores Functional Gait Assessment Score: 27 % Disability: 10.0000 Lower Extremity Functional Score: 36 Goals Goal 1:: I appropriate gym based workout without increased pain for L knee and general health Goal Time Frame: 4-6 Weeks Goal 2:: Pain in knee 0/10 and 100% better Goal Time Frame: 4-6 Weeks Goal 3:: LEFS 45 to show improved confidence in legs. Goal Time Frame: 4-6 Weeks Rehabilitation Potential Physical Therapy Diagnosis: Fear avoidance of workout for L knee OA. Rehabilitation Potential: Fair Anticipated Interventions Patient/Client Instruction: Educate patient on: Condition and Plan of Care For the Purpose of:: To decrease pain, To increase ROM, To improve nutrient delivery to tissue, To improve muscle performance and motor function and To increase tolerance to activity/condition/position Therapeutic Exercise to Include: Strength training, Flexibilty training, Passive ROM and Active ROM For the Purpose of:: To decrease pain, To increase ROM, To improve nutrient delivery to tissue and To improve muscle performance and motor function Text: Thank you for the opportunity to evaluate your patient. For Medicare and Medicare HMO plans, please review the plan of care and approve it. It will need to be FAXED BACK to us at [phone] for Medicare purposes. For Medicare only, by signing this I certify the plan of care. Please let me know if there are questions or concerns regarding this plan of care. Physician Signature: Date:
--- NOTE | 2025-07-15 09:44 | HP.PT.NRP ---
Patient Information Patient Information: JSESICA MERRILL was seen in my office for initial evaluation on 06/28/25. The following Plan of Care was established for this patient: POC Established Initial Frequency: 3x /Week Initial Duration: 2-4 Weeks Anticipated Interventions Patient/Client Instruction: Educate patient on: Condition and Plan of Care For the Purpose of:: To decrease pain, To increase ROM, To improve nutrient delivery to tissue, To improve muscle performance and motor function and To increase tolerance to activity/condition/position Therapeutic Exercise to Include: Strength training, Flexibilty training, Passive ROM and Active ROM For the Purpose of:: To decrease pain, To increase ROM, To improve nutrient delivery to tissue and To improve muscle performance and motor function Last Seen Last Seen: This patient was last seen in our office 07/08/25. Pertinent comments regarding their Physical therapy will appear below: Pt seen 3 visits of POC but called and canceelled remaining. Will discontinue at this time. At this point I will be discontinuing this patient from physical therapy. I would be happy to see this patient again in the future if found appropriate by the physician. Thank you! Antolin aKhn, DPT, OCS, CSCS Balance/Gait/Functional tests Balance/Special Test Scores Functional Gait Assessment Score: 27 % Disability: 10.0000 Lower Extremity Functional Score: 36
== END 2025-07-08 19:00 | disposition home or self-care (01) ==
LOC: PT 13:30
PROVIDERS: PCP Internal Medicine; Referring Provider Nurse Practitioner; Visit Provider Nurse Practitioner
DX: M25.562 Pain in left knee (principal); G89.29 Other chronic pain
CPT/HCPCS: 97110; 97161

== ENCOUNTER 2025-10-05 10:04 | Day surgery (SDC) | payer MEDICARE, SELFPAY ==
[2025-10-05] VITALS (8 sets, daily range): BP systolic 103–121; BP diastolic 67–96; PULSE 72–105; RESP 16–18; TEMP 35.8–36.4; O2SAT 94–99; BMI 41.8
[2025-10-05] MEDS: Lactated Ringers 1,000 ML 15 ML IV (10:27)
--- NOTE | 2025-10-05 10:46 | HP.PCM_ITS ---
HPI - General General Date of Admission: 10/05/25 Date of Service: 10/05/25 Chief Complaint: Anemia and diarrhea HPI Narrative *[facility] established 06.30.25 pt reports that she is here to establish care with GI in [place]. Was previously seeing [facility] in [place], but moved to [place] 2-3 years ago. Pt reports her last EGD and Colonoscopy were about 2-3 years ago. Pt reports she has had 2 EGD with dilation for Schatzki r ing. Pt reports omeprazole is effective for her HB. Pt reports taking daily Imodium for diarrhea. She has a history of gastroesophageal reflux disease and irritable bowel syndrome with diarrhea (IBS-D). Her?symptoms include retrosternal burning and regurgitation, which have worsened over the last few weeks. She has been taking omeprazole daily for a prolonged period. Aggravating factors include eating large meals, especially at night. Alleviating factors include using antacids, though these have become less effective. Her bowel movements are characterized by frequent loose stools, urgency, and occasional abdominal cramping. She reports taking daily loperamide, which provides partial relief. Her symptoms appear to be triggered by certain foods, though she has not identified specific items. She denies any bloody stools or unintentional weight loss. She was previously diagnosed with iron deficiency anemia and takes daily iron supplements. The most recent lab values are unknown. She reports feeling more fatigued than usual. Diagnostic Data:?(To be obtained) * Lab work:?Complete blood count (CBC) to check for anemia, iron studies (serum iron, ferritin, and total iron-binding capacity), magnesium level due to long- term omeprazole use, and stool studies (e.g.,?C. difficile, fecal calprotectin) to evaluate chronic diarrhea. * Imaging/Procedures:?Esophagogastroduodenoscopy (EGD) may be indicated for further GERD evaluation given long-term PPI use and age. Colonoscopy may be necessary to rule out other causes of chronic diarrhea in the elderly, especially given the history of iron deficiency. [facility] Medical History Loss of hearing Wears glasses Depression TBI (traumatic brain injury) Injury of head and neck H. pylori infection Gastric reflux Non-smoker Vitamin D deficiency Osteopenia Osteoarthritis Pancreatitis GERD (gastroesophageal reflux disease) Hypertension Gallstones Arthritis Anemia Rupture quadriceps tendon Cholecystectomy planned Vertigo Home Medications ?Medication ?Instructions ?Recorded ?Last Taken ?Type loratadine 10 mg PO DAILY 05/22/22 Unkn own History losartan 50 mg tablet 1 tab PO BID 05/22/22 History meclizine 25 mg tablet 25 mg PO TID PRN dizziness # 14 tabs 05/22/22 Unknown Rx meloxicam 15 mg tablet 1 tab PO DAILY 05/22/22 Unkn own History omeprazole 40 mg capsule,delayed 1 cap PO DAILY 10/05/25 History release estradiol 0.01% (0.1 mg/gram) 1 appful vaginal QODAY 0 10/28/23 Unknown History vaginal cream acetaminophen 650 mg 1,300 mg PO Q12H 06/30/25 Un known History tablet,extended release cholecalciferol (vitamin D3) 50 50 mcg PO QDAY 5 Unknown History mcg (2,000 unit) capsule ferrous gluconate 225 mg (27 mg 225 mg PO QDAY 5 10/02/25 History iron) tablet magnesium citrate 125 mg capsule 250 mg PO BID 5 Unknown History multivitamin 1 tab PO QDAY 06/30/25 Unkno wn History spironolactone 25 mg tablet 25 mg PO QDAY 06/30/25 History zolpidem 10 mg tablet 10 mg PO QHS PRN sleep 06/30 Unknown History Allergy/AdvReac Type Severity Reaction Status Date / Time adhesive tape Allergy Rash Verified 10/05/25 10:20 poison jeremi extract Allergy Rash Verified 10/05/25 10:20 ELLIOT Inhibitors AdvReac Unknown cough Verified 10/05/25 10:20 amlodipine AdvReac Unknown Other Verified 10/05/25 10:20 cat dander (cats) AdvReac Unknown Itching Verified 10/05/25 10:20 Environmental Allergies: AdvReac Unknown Itching Verified 10/05/25 10:20 Uncoded (dust mites) pollen extracts (pollens) AdvReac Unknown Itching Verified 10/05/25 10:20 Surgical History Hx of tonsillectomy History of endometrial ablation H/O colonoscopy H/O esophagogastroduodenoscopy Hx of cholecystectomy History of hysterectomy Social History Smoking Status: Never smoker alcohol intake: current substance use type: does not use ROS Constitutional Constitutional: Denies fatigue, fever(s), poor appetite, weight gain or weight loss Gastrointestinal Gastrointestinal: Denies belching, bloating, change in bowel habits, change in stool character, chewing difficulty, coffee ground emesis, constipation, cramping, diarrhea, dyspepsia, dysphagia, early satiety, excessive flatus, fecal incontinence, heartburn, hematemesis, hematochezia, hemorrhoids, loose stools, melena, nausea, odynophagia, rectal bleeding, tenesmus, vomiting or weight changes Vital Signs Vital Signs Vital Signs: 10/05/25 10:21 10/05/25 10:21 10/05/25 10:21 Temperature 97.6 F L Temperature Source Temporal Pulse Rate 105 H Respiratory Rate 16 Respiratory Pattern Normal Blood Pressure 121/82 H Blood Pressure Mean 95 Blood Pressure Source Monitor Blood Pressure Position Semi-Fowlers Blood Pressure Location Right Forearm Baseline BP 121/82 Pulse Ox 99 Oxygen Delivery Method Room Air Weight Weight: 235 lb 14.314 oz Body Mass Index (BMI) 41.8 Physical Exam Const alert, oriented x3, no apparent distress and healthy appearing General Appearance: cooperative GI normal to inspection, nondistended, normoactive bowel sounds, soft to palpation, non-tender and non-distended Percussion: normal to percussion Rectal Exam: deferred Assessment & Plan Assessment/Plan (1) Personal history of adenomatous and serrated colon polyps: (2) Irritable bowel syndrome with diarrhea: (3) GERD (gastroesophageal reflux disease): PLAN: Assessment and Plan Assessment and Plan (1) Irritable bowel syndrome with diarrhea: Status: Acute (2) GERD (gastroesophageal reflux disease): Status: Acute (3) Personal history of adenomatous and serrated colon polyps: Status: Acute Plan: Problem List: * Gastroesophageal Reflux Disease (:?Refractory GERD symptoms despite long-term omeprazole use. Long-term PPI use in an elderly patient carries risks, including micronutrient deficiencies and increased infection risk. The current regimen may need adjustment or further workup with EGD to rule out complications like Vera's esophagus. * Irritable Bowel Syndrome with Diarrhea :?Continued symptoms of chronic diarrhea despite daily loperamide. In elderly patients, persistent diarrhea requires thorough investigation to exclude more serious conditions such as microscopic colitis, medication-induced diarrhea, or malignancy. * Iron Deficiency Anemia:?History of iron deficiency, which may be related to malabsorption caused by omeprazole, chronic GI bleeding (potentially from GERD or colon issues), or underlying disease. Symptoms of fatigue suggest ongoing or worsening anemia. Plan GERD: * Continue Omeprazole:?Will continue current dose but re-evaluate for potential deprescribing or switching to an H2 bill once initial workup is complete. * Lifestyle Modifications:?Re-educate on avoiding GERD triggers like large meals, caffeine, and acidic foods. Recommend elevating the head of the bed. * Diagnostic Testing:?Plan for esophagogastroduodenoscopy (EGD) to assess for complications of long-term GERD and rule out other pathology. IBS-D and Chronic Diarrhea: * Review Loperamide:?Continue daily loperamide but assess for optimal dosing and efficacy. * Medication Review:?Consider if any other medications may be contributing to diarrhea. * Diagnostic Testing:?Order stool studies including fecal calprotectin to screen for inflammatory bowel disease and?C. difficile?testing. * Colonoscopy:?Recommend colonoscopy to investigate the cause of chronic diarrhea and iron deficiency in this age group. Iron Deficiency Anemia: * Monitor Labs:?Order repeat iron studies and CBC to evaluate for improvement with supplementation. * Consider Absorption:?Discuss potential malabsorption due to omeprazole and the need for alternative iron formulations if levels do not improve. * Evaluate Source:?Pursue colonoscopy as planned to investigate potential GI blood loss as a cause. * Schedule Appointments:?Book appointments for EGD and colonoscopy in future. * Recheck Labs:?Order follow-up bloodwork and stool studies. * Return Visit:?Follow-up appointment in 4-6 weeks to review results and adjust management plan. Medications: Discontinued oxycodone-acetaminophen 5-325 mg (Percocet) Discontinued Reason: Pt no longer taking 1 TAB PO Q6H 3 days PRN 12 tabs 0RF pain S42.209A - Unspecified fracture of upper end of unspecified humerus, initial encounter for closed fracture
--- NOTE | 2025-10-05 10:53 | PRE.ANES_ITS ---
ASA Classification* ASA Classification ASA Classification: 3 Assessment & Plan Anesthesia* Anesthesia Assessment Anesthesia Assessment: Discussed sedation and/or anesthesia options, risks, benefits, and alternatives with patient/parents/legal guardian/POA. Questions invited. The patient/parents/legal guardian/POA seems to understand and agrees to proceed with anesthesia plan. Reviewed the physical assessment, medical history, allergy history and patient home medications list prior to surgery/procedure/anesthetic and documented any changes. Performed airway and anesthesia risk assessments. Anesthesia Type Anesthesia Type: MAC History Source History Obtained from:: Patient and Chart Anesthesia Focused Assessment* Temperature: 97.6 F Pulse Rate: 105 Blood Pressure: 121/82 Respiratory Rate: 16 Pulse Ox: 99 Oxygen Delivery Method: Room Air Airway Assessment Mouth opens: >3 cm Mallampati Score: III Teeth Condition: Caps/Crowns (Patient has several crowns. They are tight.) Neck Range of motion (ROM): Limited ROM (Slight Decrease) Labs Anesthesia Preop lab: CBC WBC, (4.4-11.0) 8.2 K/mm3 04/26/24, 14:40 RBC, (4.2-5.4) 4.51 M/mm3 04/26/24, 14:40 Hgb, (12.0-15.0) 12.7 g/dL 04/26/24, 14:40 Hct, (37-47) 41.5 % 04/26/24, 14:40 Plt Count, (150-450) 301 K/mm3 04/26/24, 14:40 CHEMISTRY Potassium, (3.5-5.1) 3.6 mmol/L 04/26/24, 14:40 Sodium, (136-145) 138 mmol/L 04/26/24, 14:40 BUN, (7-18) 16 mg/dL 04/26/24, 14:40 Creatinine, (0.55-1.02) 0.79 mg/dL 04/26/24, 14:40 Glucose, (74-106) 120 mg/dL H 04/26/24, 14:40 COAG Pre-Assessment Diagnosis/Proposed Procedure Planned Operative Procedure(s): COLONOSCOPY, EGD Anesthesia History 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 When Was Last Pacemaker Check QUESTION #4 FULL TEXT: You/Your Family Experience fever (hyperthermia) with Anesthesia Last Oral Intake Last Oral intake: Last Oral Intake NPO since 07:00 10/05/25 10:21 Meds taken in AM with sips of Yes 10/05/25 10:21 water? 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 Female Yes 10/04/25 13:38 HX of Motion Sickness No 10/04/25 13:38 HX of N/V After Surgery No 10/04/25 13:38 Non-Smoker Yes 10/04/25 13:38 Duration of Surgery greater No 10/04/25 13:38 than 60 minutes Number of Risk Factors 2 10/04/25 13:38 PONV Score Moderate Risk 10/04/25 13:38 Height & Weight Height & Weight: Anesthesia: Height & Weight Height 5 ft 3 in 10/05/25 10:21 Weight: 107 kg 10/05/25 10:21 Body Mass Index (BMI) 41.8 10/05/25 10:21 Respiratory Assessment Respiratory Assessment - adjunct phlebotomy instructor: Respiratory Tract Infection Hx - adjunct phlebotomy instructor Hx Respiratory Tract Infection No 10/04/25 13:38 STOP Sleep Apnea STOP Sleep Apnea - adjunct phlebotomy instructor: STOP Sleep Apnea - adjunct phlebotomy instructor Hx Hypertension Yes: CONTROLLED WITH MEDS 10/04/25 13:38 Hx Sleep Apnea No 10/04/25 13:38 CPAP BIPAP Do you snore loudly (louder No 10/04/25 13:38 than talking or can be heard Do you often feel tired/ No 10/04/25 13:38 fatigued/ sleepy during daytime? Has anyone observed you stop No 10/04/25 13:38 breathing during sleep? STOP Results Negative 10/04/25 13:38 QUESTION #5 FULL TEXT : Do you snore loudly (louder than talking or can be heard through closed doors)? 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 Specify any problems Hx of Preganancy in last 3 No 10/04/25 13:38 Months Nurse Filling Out Transfusion [id number] 10/04/25 13:38 & Questions: Date: 10/04/25 10/04/25 13:38 Time: 13:42 10/04/25 13:38 Patient unable to answer at this time (ie. 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: /Reproductive Hx- adjunct phlebotomy instructor Hx Now Gestational Age (in weeks): EDC: Hx Hx Para Hx Section SAB Does the father of the baby or his family experience fever w Father of the baby Malignant Hypertension history comment Active Medications Active Medications: Current Medications Generic Name Dose Route Start Last Admin Trade Name Freq PRN Reason Stop Dose Admin Lactated Ringer's 1,000 mls @ 15 mls/hr 10/05/25 10:15 10/05/25 10:27 IV 15 mls/hr .Q48H MUNDO Administration PFSH Medical History Loss of hearing Wears glasses Depression TBI (traumatic brain injury) Injury of head and neck H. pylori infection Gastric reflux Non-smoker Vitamin D deficiency Osteopenia Osteoarthritis Pancreatitis GERD (gastroesophageal reflux disease) Hypertension Gallstones Arthritis Anemia Rupture quadriceps tendon Cholecystectomy planned Vertigo Home Medications ?Medication ?Instructions ?Recorded ?Last Taken ?Type loratadine 10 mg PO DAILY 05/22/22 Unkn own History losartan 50 mg tablet 1 tab PO BID 05/22/22 History meclizine 25 mg tablet 25 mg PO TID PRN dizziness # 14 tabs 05/22/22 Unknown Rx meloxicam 15 mg tablet 1 tab PO DAILY 05/22/22 Unkn own History omeprazole 40 mg capsule,delayed 1 cap PO DAILY 10/05/25 History release estradiol 0.01% (0.1 mg/gram) 1 appful vaginal QODAY 0 10/28/23 Unknown History vaginal cream acetaminophen 650 mg 1,300 mg PO Q12H 06/30/25 Un known History tablet,extended release cholecalciferol (vitamin D3) 50 50 mcg PO QDAY 5 Unknown History mcg (2,000 unit) capsule ferrous gluconate 225 mg (27 mg 225 mg PO QDAY 5 10/02/25 History iron) tablet magnesium citrate 125 mg capsule 250 mg PO BID 5 Unknown History multivitamin 1 tab PO QDAY 06/30/25 Unkno wn History spironolactone 25 mg tablet 25 mg PO QDAY 06/30/25 History zolpidem 10 mg tablet 10 mg PO QHS PRN sleep 06/30 Unknown History Allergy/AdvReac Type Severity Reaction Status Date / Time adhesive tape Allergy Rash Verified 10/05/25 10:20 poison jeremi extract Allergy Rash Verified 10/05/25 10:20 ELLIOT Inhibitors AdvReac Unknown cough Verified 10/05/25 10:20 amlodipine AdvReac Unknown Other Verified 10/05/25 10:20 cat dander (cats) AdvReac Unknown Itching Verified 10/05/25 10:20 Environmental Allergies: AdvReac Unknown Itching Verified 10/05/25 10:20 Uncoded (dust mites) pollen extracts (pollens) AdvReac Unknown Itching Verified 10/05/25 10:20 Surgical History Hx of tonsillectomy History of endometrial ablation H/O colonoscopy H/O esophagogastroduodenoscopy Hx of cholecystectomy History of hysterectomy Social History Smoking Status: Never smoker alcohol intake: current substance use type: does not use Review of Systems (Anesthesia) ROS Narrative System reviewed and no additional complaints, except as documented.
--- NOTE | 2025-10-05 11:00 | COLBX_PTH ---
PATIENT: JESSICA MERRILL LOC: EN U#:[id number] AGE/SX: 74/F ROOM: RE10/05/[address]: Dr. Juan Manuel Park DO : 1950 BED: DIS: 10/05/2025 SPEC #: [id number] RECD: 10/05/25 13:43 STATUS: ADAM REBlaine #: [id number] DULCE: 10/05/25 11:[address]: Juan Manuel Park DEPT: SURGICAL PATHOLOGY RECD BY: Marcus Contreras ENTERED: 10/05/25 15:43 SP TYPE: COLON BX OTHR DR: Dr. Michelle Blanco MD Tissues: A - Esophagus, NOS Procedures: Surgery Specimen Level IV HEADER OPERATION: Colonoscopy, EGD, biopsy, electrohemostasis, dilation PRE-OP DIAGNOSIS: Irritable bowel syndrome, GERD, personal history of adenomatous and serrated colon polyps TISSUE SUBMITTED: A- Distal esophagus biopsy MICROSCOPIC DIAGNOSIS A. Esophagus, distal, biopsy: Squamous mucosa with reactive changes and rare eosinophils. Columnar mucosa negative for goblet cell metaplasia. Negative for dysplasia. MICROSCOPIC DESCRIPTION Slides are reviewed. GROSS DESCRIPTION A. Received in fixative is one container labeled with the patient's name and designated Distal esophagus biopsy. The specimen consists of four irregular fragments of mayo tissue that measure 0.1 to 0.3 cm. Smaller fragment may not survive processing. The specimen is totally submitted in one cassette. OR 10/05/2025 CPT:53450
--- NOTE | 2025-10-05 12:10 | PCM.POST.ANE ---
Anesthesia: Postop Eval I Current Vital Signs Temperature: 97 F Pulse Rate: 79 Blood Pressure: 113/69 Respiratory Rate: 16 Pulse Ox: 97 Oxygen Delivery Method: Room Air Assessment Airway patent: Yes Spontaneous unlabored respirations: Yes Mental status: Awake and Calm nausea: No Vomiting: No Anesthesia Complication: No Fluid Hydration Crystalloid volume administer (ml): 600 Total IV fluid infused: 600 Progress Note Anesthesia document: Postop Eval 1 completed: Yes
--- NOTE | 2025-10-05 12:11 | OP.EGD_ITS ---
Patient Name: Graciela Worrell Procedure Date: 10/05/2025 11:19 AM Date of : 1950 Age: 74 Procedure: Upper GI endoscopy Indications: Iron deficiency anemia, Dysphagia Providers: Juan Manuel Park DO Medicines: Monitored Anesthesia Care Patient Profile: This is a 74 year old female. Refer to note in patient chart for documentation of history and physical. Patient has symptoms of dysphagia with solids. Complications: No immediate complications. Procedure: Pre-Anesthesia Assessment: - Prior to the procedure, a History and Physical was performed, and patient medications and allergies were reviewed. The patient is competent. The risks and benefits of the procedure and the sedation options and risks were discussed with the patient. All questions were answered and informed consent was obtained. Patient identification and proposed procedure were verified by the physician in the pre-procedure area. Mental Status Examination: alert and oriented. Airway Examination: normal oropharyngeal airway and neck mobility. Respiratory Examination: clear to auscultation. CV Examination: normal. Prophylactic Antibiotics: The patient does not require prophylactic antibiotics. Prior Anticoagulants: The patient has taken no anticoagulant or antiplatelet agents except for NSAID medication. ASA Grade Assessment: II - A patient with mild systemic disease. After reviewing the risks and benefits, the patient was deemed in satisfactory condition to undergo the procedure. The anesthesia plan was to use monitored anesthesia care (MAC). Immediately prior to administration of medications, the patient was re-assessed for adequacy to receive sedatives. The heart rate, respiratory rate, oxygen saturations, blood pressure, adequacy of pulmonary ventilation, and response to care were monitored throughout the procedure. The physical status of the patient was re-assessed after the procedure. After obtaining informed consent, the endoscope was passed under direct vision. Throughout the procedure, the patient's blood pressure, pulse, and oxygen saturations were monitored continuously. The Colonoscope was introduced through the mouth, and advanced to the fourth part of the duodenum. Small bowel enteroscopy was deemed necessary. The upper GI endoscopy was accomplished without difficulty. The patient tolerated the procedure well. Scope In: 11:30:41 AM Scope Out: 11:40:17 AM Total Procedure Duration Time 0 hours 9 minutes 36 seconds Findings: Abnormal motility was noted at the lower esophageal sphincter. The cricopharyngeus was abnormal. There are extra peristaltic waves in the esophageal body. The distal esophagus/lower esophageal sphincter is spastic, but gives up passage to the endoscope. Tertiary peristaltic waves are noted. A moderate Schatzki ring was found at the gastroesophageal junction. Biopsies were taken with a cold forceps for histology. Verification of patient identification for the specimen was done. Estimated blood loss was minimal. A guidewire was placed and the scope was withdrawn. Dilation was performed with a Savary dilator with no resistance at 60 Fr. The dilation site was examined and showed. Estimated blood loss was minimal. A large hiatal hernia was present. Localized hemorrhagic mucosa with bleeding and stigmata of recent bleeding was found in the gastric fundus. Coagulation for hemostasis using heater probe was successful. Estimated blood loss was minimal. No gross lesions were noted in the entire examined duodenum. Impression: - Abnormal esophageal motility. - Moderate Schatzki ring. Biopsied. Dilated. - Large hiatal hernia. - Hemorrhagic gastropathy. Treated with a heater probe. - No gross lesions in the entire examined duodenum. Recommendation: - Discharge patient to home. - Resume previous diet. - Continue present medications. - Await pathology results. Procedure Code(s): --- Professional --- 03052, 59, Small intestinal endoscopy, enteroscopy beyond second portion of duodenum, not including ileum; with control of bleeding (eg, injection, bipolar cautery, unipolar cautery, laser, heater probe, stapler, plasma head insulation board saw operator) 22397, 59, Esophagogastroduodenoscopy, flexible, transoral; with insertion of guide wire followed by passage of dilator(s) through esophagus over guide wire 32089, 59,51, Small intestinal endoscopy, enteroscopy beyond second portion of duodenum, not including ileum; with biopsy, single or multiple CPT copyright 2021 [employer]. All rights reserved. The codes documented in this report are preliminary and upon renal medicine physician review may be revised to meet current compliance requirements. Juan Manuel Park DO 10/05/2025 12:10:40 PM This report has been signed electronically. Number of Addenda: 0 Note Initiated On: 10/05/2025 11:19 AM
--- NOTE | 2025-10-05 12:11 | OP.PROVAT_ITS ---
10/05/2025 Michelle Blanco [address] [place] [address] Re : Upper GI endoscopy procedure for Graciela Worrell Dear Dr. Blanco This procedure was performed on Sunday, October 05, 2025. My impressions and recommendations are as follows: Impressions : - Abnormal esophageal motility. - Moderate Schatzki ring. Biopsied. Dilated. - Large hiatal hernia. - Hemorrhagic gastropathy. Treated with a heater probe. - No gross lesions in the entire examined duodenum. Recommendations : - Discharge patient to home. - Resume previous diet. - Continue present medications. - Await pathology results. My findings are described in the full procedure note, which is enclosed. If I can be of further assistance, please feel free to contact me at . Sincerely, Juan Manuel Park, 10/05/2025 12:10:40 PM This report has been signed electronically.
--- NOTE | 2025-10-05 12:15 | OP.COLON_ITS ---
Patient Name: Graciela Worrell Procedure Date: 10/05/2025 11:40 AM Date of : 1950 Age: 74 Procedure: Colonoscopy Indications: Iron deficiency anemia Providers: Juan Manuel Park DO Medicines: Propofol per Anesthesia Patient Profile: This is a 74 year old female. Refer to note in patient chart for documentation of history and physical. Patient has symptoms of dysphagia with solids. Last Colonoscopy: several years ago. Complications: No immediate complications. Procedure: Pre-Anesthesia Assessment: - Prior to the procedure, a History and Physical was performed, and patient medications and allergies were reviewed. The patient is competent. The risks and benefits of the procedure and the sedation options and risks were discussed with the patient. All questions were answered and informed consent was obtained. Patient identification and proposed procedure were verified by the physician in the pre-procedure area. Mental Status Examination: alert and oriented. Airway Examination: normal oropharyngeal airway and neck mobility. Respiratory Examination: clear to auscultation. CV Examination: normal. Prophylactic Antibiotics: The patient does not require prophylactic antibiotics. Prior Anticoagulants: The patient has taken no anticoagulant or antiplatelet agents except for NSAID medication. ASA Grade Assessment: II - A patient with mild systemic disease. After reviewing the risks and benefits, the patient was deemed in satisfactory condition to undergo the procedure. The anesthesia plan was to use monitored anesthesia care (MAC). Immediately prior to administration of medications, the patient was re-assessed for adequacy to receive sedatives. The heart rate, respiratory rate, oxygen saturations, blood pressure, adequacy of pulmonary ventilation, and response to care were monitored throughout the procedure. The physical status of the patient was re-assessed after the procedure. After I obtained informed consent, the scope was passed under direct vision. Throughout the procedure, the patient's blood pressure, pulse, and oxygen saturations were monitored continuously. The Colonoscope was introduced through the anus and advanced to the ileocecal valve. The colonoscopy was performed without difficulty. The patient tolerated the procedure well. The quality of the bowel preparation was adequate. The ileocecal valve, appendiceal orifice, and rectum were photographed. Scope In: 11:41:55 AM Scope Withdrawal Time 0 hours 9 minutes 42 seconds Scope Out: 11:58:38 AM Total Procedure Duration Time 0 hours 16 minutes 43 seconds Findings: The perianal and digital rectal examinations were normal. Multiple small and large-mouthed diverticula were found in the entire colon. The exam was otherwise without abnormality on direct and retroflexion views. Impression: - Diverticulosis in the entire examined colon. - The examination was otherwise normal on direct and retroflexion views. - No specimens collected. Recommendation: - Discharge patient to home. - Resume previous diet. - Continue present medications. - Repeat colonoscopy in 5 years for surveillance. Procedure Code(s): --- Professional --- 05888, Colonoscopy, flexible; diagnostic, including collection of specimen(s) by brushing or washing, when performed (separate procedure) CPT copyright 2021 [employer]. All rights reserved. The codes documented in this report are preliminary and upon hris developer review may be revised to meet current compliance requirements. Juan Manuel Park DO 10/05/2025 12:14:40 PM This report has been signed electronically. Number of Addenda: 0 Note Initiated On: 10/05/2025 11:40 AM
--- NOTE | 2025-10-05 12:15 | OP.PROVAT_ITS ---
10/05/2025 Michelle Blanco [address] [place] [address] Re : Colonoscopy procedure for Graicela Worrell Dear Dr. Blanco This procedure was performed on Sunday, October 05, 2025. My impressions and recommendations are as follows: Impressions : - Diverticulosis in the entire examined colon. - The examination was otherwise normal on direct and retroflexion views. - No specimens collected. Recommendations : - Discharge patient to home. - Resume previous diet. - Continue present medications. - Repeat colonoscopy in 5 years for surveillance. My findings are described in the full procedure note, which is enclosed. If I can be of further assistance, please feel free to contact me at . Sincerely, Juan Manuel Friend, 10/05/2025 12:14:40 PM This report has been signed electronically.
--- NOTE | 2025-10-05 21:54 | PCM.POSTANE2 ---
Anesthesia Postop Eval I Sum Postop Eval Completion status Anesthesia document: Postop Eval 1 completed: Yes Anesthesia Postop Eval I Summary Anesthesia Postop Eval I Summary: Anesthesia Postop Eval I: Assessment Summary Airway patent Yes 10/05/25 12:11 [email or web address] Spontaneous unlabored Yes 10/05/25 12:11 [email or web address] respirations Mental status Awake,Calm 10/05/25 12:11 [email or web address] nausea No 10/05/25 12:11 [email or web address] Vomiting No 10/05/25 12:11 [email or web address] Anesthesia Postop Eval I: Fluid Summary Crystalloid volume administer 600 10/05/25 12:11 [email or web address] (ml) Colloids volume administered ( ml) Blood Product volume administered (ml) Total IV fluid infused 600 10/05/25 12:11 [email or web address] Anesthesia Postop Eval I: Summary Notes Anesthesia Complication No 10/05/25 12:11 [email or web address] Anesthesia Complication Comment: Post-operative progress note Anesthesia: Postop Eval II Evaluation Mental status: Awake and Calm Pain Level: 0 nausea: No Vomiting: No Complications Anesthesia Complication: No
== END 2025-10-05 13:00 | disposition home or self-care (01) ==
LOC: EN 10:06 → AC 10:07
PROVIDERS: PCP Internal Medicine; Referring Provider Internal Medicine; Visit Provider Internal Medicine Gastroenterology
PROC: 0DJD8ZZ Inspection of Lower Intestinal Tract, Via Natural or Artificial Opening Endoscopic (ICD-10-PCS; CPT 45378; principal; 2025-10-05 10:55)
DX: K22.2 Esophageal obstruction (principal); K21.9 Gastro-esophageal reflux disease without esophagitis; K58.0 Irritable bowel syndrome with diarrhea; I10 Essential (primary) hypertension; Z86.0100 Personal history of colon polyps, unspecified; D50.9 Iron deficiency anemia, unspecified; K44.9 Diaphragmatic hernia without obstruction or gangrene; K57.30 Diverticulosis of large intestine without perforation or abscess without bleeding; Z79.899 Other long term (current) drug therapy
CPT/HCPCS: 43248; 45378; 88305; C1889; C1769; J2405

== ENCOUNTER 2025-10-14 14:43 | Emergency (ER) | payer MEDICARE, SELFPAY ==
[2025-10-14 14:45] VITALS: BP 156/114; PULSE 65; RESP 22; TEMP 36.3; O2SAT 100; BMI 41.5
--- NOTE | 2025-10-14 15:38 | EX.ED.DYSGE1 ---
HPI History of Present Illness Chief Complaint: GI Bleed [facility] Medical History Loss of hearing Wears glasses Depression TBI (traumatic brain injury) Injury of head and neck H. pylori infection Gastric reflux Non-smoker Vitamin D deficiency Osteopenia Osteoarthritis Pancreatitis GERD (gastroesophageal reflux disease) Hypertension Gallstones Arthritis Anemia Rupture quadriceps tendon Cholecystectomy planned Vertigo Home Medications ?Medication ?Instructions ?Recorded ?Last Taken ?Type loratadine 10 mg PO DAILY 05/22/22 Unknown History losartan 50 mg tablet 1 tab PO BID 05/22/22 10/05/25 History meclizine 25 mg tablet 25 mg PO TID PRN dizziness #14 tabs 05/22/22 Unknown Rx meloxicam 15 mg tablet 1 tab PO DAILY 05/22/22 Unknown History omeprazole 40 mg capsule,delayed 1 cap PO DAILY 05/22/22 10/05/25 History release estradiol 0.01% (0.1 mg/gram) 1 appful vaginal QODAY 10/28/23 10/13/25 History vaginal cream acetaminophen 650 mg 1,300 mg PO Q12H 06/30/25 Unknown History tablet,extended release cholecalciferol (vitamin D3) 50 50 mcg PO QDAY 06/30/25 Unknown History mcg (2,000 unit) capsule ferrous gluconate 225 mg (27 mg 225 mg PO QDAY 06/30/25 10/02/25 History iron) tablet magnesium citrate 125 mg capsule 250 mg PO BID 06/30/25 Unknown History multivitamin 1 tab PO QDAY 06/30/25 Unknown History spironolactone 25 mg tablet 25 mg PO QDAY 06/30/25 10/05/25 History zolpidem 10 mg tablet 10 mg PO QHS PRN sleep 06/30/25 Unknown History Allergy/AdvReac Type Severity Reaction Status Date / Time adhesive tape Allergy Rash Verified 10/14/25 14:47 poison jeremi extract Allergy Rash Verified 10/14/25 14:47 ELLIOT Inhibitors AdvReac Unknown cough Verified 10/14/25 14:47 amlodipine AdvReac Unknown Other Verified 10/14/25 14:47 cat dander (cats) AdvReac Unknown Itching Verified 10/14/25 14:47 Environmental Allergies: AdvReac Unknown Itching Verified 10/14/25 14:47 Uncoded (dust mites) pollen extracts (pollens) AdvReac Unknown Itching Verified 10/14/25 14:47 Family History no significant family his Surgical History Hx of tonsillectomy History of endometrial ablation H/O colonoscopy H/O esophagogastroduodenoscopy Hx of cholecystectomy History of hysterectomy Social History Smoking Status: Never smoker alcohol intake: current substance use type: does not use EXAM Physical Exam Const Vital Signs: 10/14/25 14:45 10/14/25 16:52 10/14/25 18:09 Temperature 97.4 F L 98 F Temperature Source Temporal Pulse Rate 65 90 81 Respiratory Rate 22 H 14 16 Blood Pressure 156/114 H 106/70 Blood Pressure Mean 128 82 Pulse Ox 100 95 99 Oxygen Delivery Method Room Air MDM MDM MDM Narrative Medical decision making narrative: HISTORY OF PRESENT ILLNESS: Chief complaint: Diarrhea, concern for GI bleed 74-year-old female history of depression, TBI, H. pylori, GERD, hypertension, history of colonoscopy, EGD, cholecystectomy, hysterectomy and endometrial ablation. Patient reports dark stools this began essentially after colonoscopy on 10/05. Denies severe abdominal pain. Denies blood thinners. Denies any cardiopulmonary symptoms. REVIEW OF SYSTEMS: Pertinent positives: GI bleed Pertinent negatives: Chest pain, shortness of breath, syncope PHYSICAL EXAM: Nursing triage notes reviewed, Vital signs reviewed Constitutional: please see mdm HENT: MMM Eyes: Pupils equal round and reactive to light, Extraocular muscles intact Neck: No stridor, no JVD, full neck ROM Lungs: Clear to auscultation, No wheezing or rales. No increased work of breathing, no conversational dyspnea, no accessory muscle use, no nasal flaring. No respiratory distress noted Heart: Regular rate and rhythm, No murmurs, No rubs and No gallops, 2+ distal pulses (radial, femoral, posterior tibial) in all extremities Abdomen: Soft, there is no tenderness, rigidity, rebound or guarding, no obvious peritoneal signs, no palpable pulsatile abdominal masses, no auscultated abdominal bruit : No CVAT Rectal exam performed with automobile spring repairer Becky CLEMENTS present and after verbal consent showed a nonbleeding, nonthrombosed hemorrhoid at approximately-9 o'clock position and dark/melanotic stool. Extremities: No edema Neuro: No new focal neurological deficits, cranial nerves II through XII intact, 5/5 strength in all present extremities. Intact sensation to light touch in all present extremities, 2+ reflexes bilateral patella tendons. Skin: No rash or lesions noted MEDICAL DECISION MAKING: Chief Complaint: please see HPI External records reviewed: Reviewed recent EGD and colonoscopy which was performed by Dr. Park on 10/05/2025 Factors affecting care: GERD, IBS Social determinants of health: none History obtained from others: none Consults: Gastroenterology (Dr. Park) [facility] Narrative: Patient was initially hemodynamically stable, afebrile and nontoxic-appearing. Exam without peritoneal signs. Abdomen was nontender soft. Rectal exam performed with automobile spring repairer Becky CLEMENTS present and after verbal consent showed a nonbleeding, nonthrombosed hemorrhoid at approxi-9 o'clock position and dark/melanotic stool. I considered the following differential diagnosis: GI bleed, anemia, bowel perforation I obtained a broad lab and imaging workup to further determine if the patient was suffering from a life-threatening etiology. ALL IMAGES (IF OBTAINED) HAVE BEEN PERSONALLY REVIEWED AND INTERPRETED BY MYSELF. Fecal occult stool sample positive for GI bleed CBC with leukocytosis suggestive of systemic inflammation, mild anemia worse than baseline approximately 2.5 g/dL lower than prior study from April 2024 BMP without evidence of significant electrolyte abnormalities, no anion gap, no acute kidney injury. Lipase is wnl indicating no pancreatic inflammation. 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 Park who recommended discharge with prompt outpatient follow-up with him as well as a prompt CBC to be repeated on 10/17/2025. Discussed with patient. He is comfortable to plan. Strict return precautions were discussed. The patient and/or family, caregivers express understanding. The patient and/or family, caregivers agrees with the plan. Shared decision making: I will have a discussion with the patient and or visitors regarding risk/benefits of further testing or admission. They will be made aware of of the risk/benefits inherent in this decision they will be given the opportunity to voice understanding. Total critical care time today provided was at least 0 minutes. This excludes separately billable procedures. Critical care time (if documented) is secondary to the patient having high probability of clinically significant/life threatening deterioration in the patient's condition which required my urgent intervention. Impression: 1. GI bleed 2. Leukocytosis 3. Anemia Dispo: Discharge This note was generated with [employer] dictation software. It may contain incorrect words, spelling, and punctuation that were not noted in review of the chart prior to signing. Lab Data Labs: Laboratory Results - last 24 hr 10/14/25 15:50 WBC 14.0 H RBC 3.44 L Hgb 10.2 L Hct 33.1 L MCV 96.2 MCH 29.7 MCHC 30.8 L RDW Std Deviation 46.1 H RDW Coeff of Annmarie 13.1 Plt Count 332 MPV 10.6 Immature Gran % (Auto) 0.400 Neut % (Auto) 81.4 H Lymph % (Auto) 11.0 L Graham % (Auto) 6.2 Eos % (Auto) 0.6 Baso % (Auto) 0.4 Absolute Neuts (auto) 11.4 H Absolute Lymphs (auto) 1.55 Nucleated RBC % 0 PT 13.7 INR 1.0 APTT 28.4 Sodium 137 Potassium 4.8 Chloride 107 H Carbon Dioxide 22.1 Anion Gap 8 BUN 44 H Creatinine 0.85 Estim Creat Clear Calc 68.86 Est GFR (MDRD) Non-Af 73 BUN/Creatinine Ratio 52.5 H Glucose 123 H Calcium 9.2 Lipase 14 Radiography Diagnostic Testing: Clinical Impression(s) from Imaging Studies Abdomen/Pelvis CT 10/14/25 15:51 IMPRESSION: No evidence of acute iatrogenic injury. No free air or free fluid. No hydronephrosis. Punctate stones measuring up to 1 mm in the kidneys. Large hiatal hernia. Colonic diverticulosis without evidence of acute diverticulitis. Reading Location: [facility] Discharge Plan Triage Chief Complaint: GI Bleed Other Complaint: Diarrhea ED Provider: Gonzalez Aragon Dx/Rx/DC Orders Instructions: ED Diarrhea, Unknown Cause, ED Upper GI Bleeding (Stable) Prescriptions: No Action spironolactone 25 mg tablet 25 mg PO QDAY zolpidem 10 mg tablet 10 mg PO QHS PRN (Reason: sleep) acetaminophen 650 mg tablet extended release 1,300 mg PO Q12H ferrous gluconate 225 mg (27 mg iron) tablet 225 mg PO QDAY magnesium citrate 125 mg capsule 250 mg PO BID multivitamin Tablet 1 tab PO QDAY cholecalciferol (vitamin D3) 50 mcg (2,000 unit) capsule 50 mcg PO QDAY losartan 50 mg tablet 1 tab PO BID meloxicam 15 mg tablet 1 tab PO DAILY omeprazole 40 mg capsule,delayed release(DR/EC) 1 cap PO DAILY loratadine 10 mg PO DAILY meclizine 25 mg tablet 25 mg PO TID PRN (Reason: dizziness) Qty: 14 0RF estradiol 0.01 % (0.1 mg/gram) cream 1 appful VAGINAL QODAY Other Ambulatory Orders: CBC W/Diff, Automated (Routine) Timeframe: 3 Days Facility: [facility] - Location: Laboratory Ordered By: Dr. Gonzalez Aragon Primary Care Provider: Michelle Blanco Referrals: Juan Manuel Park DO [Med Staff - Active Staff, Gastroenterology] Activity Restrictions/Additional Instructions: Thank you for trusting us with your care today! Your labs were reassuring. Your blood counts only drop slightly. They do not require blood transfusion. I did discuss your case with Dr. Park who recommended repeat CBC or blood count to be drawn on Friday I did place this order for you. Please return to [facility] laboratory to have this drawn. Please return to the emergency department if your symptoms change or worsen. Please follow with your primary care physician for further outpatient evaluation and management. Print Language: Chinese Disposition Disposition: Home, Self Care Discharge Date/Time: 10/14/25 18:10
--- NOTE | 2025-10-14 15:51 | EKG12_ITS ---
Test Reason : GI BLEED Blood Pressure : */* mmHG Vent. Rate : 104 BPM Atrial Rate : 104 BPM P-R Int : 150 ms QRS Dur : 80 ms QT Int : 324 ms P-R-T Axes : 13 9 21 degrees QTcB Int : 426 ms Sinus tachycardia with frequent Premature ventricular complexes Otherwise normal ECG Confirmed by Salomon Guo ([id number]), script editor REY CRAWLEY ([id number]) on 10/21/2025 7:13:47 AM Referred By: Confirmed By: Salomon Guo
--- NOTE | 2025-10-14 15:51 | CT_ITS ---
PROCEDURE: ABDOMEN/PELVIS W IV CONT ONLY 10/14/2025 REASON FOR EXAM: ABDOMINAL DISCOMFORT, DIARRHEA, RECENT SCOPE TECHNIQUE: Procedure Code: [id number] Modality: CT Procedure: ABDOMEN/PELVIS W IV CONT ONLY Coronal and Sagittal reconstruction series were provided. CONTRAST: Isovue 370 VOLUME: 75 mL One or more dose reduction techniques were used (e.g., Automated exposure control, adjustment of the mA and/or kV according to patient size, use of iterative reconstruction technique. RADIATION DOSE SUMMARY: CTDlvol: 24.15 mGy DLP: 1303.79 mGycm COMPARISON: None. FINDINGS: Lung bases: Clear. Hiatal hernia measures 6.6 x 8.3 x 9 cm. Liver: Unremarkable. Gallbladder: Cholecystectomy. No biliary dilation. Spleen: Unremarkable. Pancreas: Unremarkable. Adrenals: Unremarkable. Kidneys: No hydronephrosis. Punctate stones measuring up to 1 mm in the kidneys. Bladder: Unremarkable. Reproductive Organs: Unremarkable. Bowel: Colonic diverticulosis without evidence of acute diverticulitis. No bowel obstruction. Appendix: Normal. Lymph nodes: No lymphadenopathy. Vasculature: No aneurysm. Peritoneum / Retroperitoneum: No free air or free fluid. Bones: No acute bony abnormalities. CT/Abdomen/Pelvis W IV Cont ONLY IMPRESSION: No evidence of acute iatrogenic injury. No free air or free fluid. No hydronephrosis. Punctate stones measuring up to 1 mm in the kidneys. Large hiatal hernia. Colonic diverticulosis without evidence of acute diverticulitis. Reading Location: [facility]
[2025-10-14 16:10] LABS: Hematocrit 33.1 % (37-47); Hemoglobin 10.2 g/dL (12.0-15.0); Immature Granulocytes Count 0.050 X10^3/uL (0.0-0.0); Mean Corp Hgb Conc 30.8 g/dL (32-36); Mean Corpuscular Volume 96.2 fL (81-99); Mean Platelet Vol. 10.6 fl (6.2-12.0); NRBC Flagged by Analyzer 0 % (0-5); Platelet Count 332 K/mm3 (150-450); RBC Distribution Width CV 13.1 % (11.6-14.6); RBC Distribution Width SD 46.1 fl (35.1-43.9); Red Blood Count 3.44 M/mm3 (4.2-5.4); White Blood Count 14.0 K/mm3 (4.4-11.0)
--- OUTSIDE RECORDS SUMMARY | 2025-10-14 16:17 | XMS RPT_ITS | CCD ---
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 Deneen Garcia MD Primary Care Provider OLDER DISPATCHER CHIEF OIL-CJOSSELIN Attending Provider OLDER DISPATCHER CHIEF OIL-CJOSSELIN Referring Provider Dr. Deneen Garcia MD Referring Provider Friend Dr. Juan Manuel AMEZQUITA Attending Provider GANTA, DENEEN Primary Care Unavailable GANTA, DENEEN Attending Unavailable SELF Referring Unavailable GANTA, DENEEN Primary Care Unavailable GANTA, DENEEN Attending Unavailable GANTA, DENEEN Primary Care Unavailable GANTA, DENEEN Referring Unavailable GANTA, DENEEN Primary Care Unavailable GANTA, DENEEN Referring Unavailable GANTA, DENEEN Primary Care Unavailable GANTA, DENEEN Attending Unavailable GANTA, DENEEN Primary Care Unavailable DARIEL PATEL Attending Unavailable GANTA, DENEEN Primary Care Unavailable OLDER, JOSSELIN Referring Unavailable OLDER, JOSSELIN Attending Unavailable GANTA, DENEEN Primary Care Unavailable GANTA, DENEEN Primary Care Unavailable GANTA, DENEEN Referring Unavailable Dr. Deneen Garcia MD Primary Care Physician Friend Dr. Juan Manuel AMEZQUITA Attending Physician [phone] OLDER DISPATCHER CHIEF OIL-JOSSELIN Gordon Attending Physician OLDER DISPATCHER CHIEF OIL-C, JOSSELIN Referring Provider [phone] Deneen Garcia Primary Care Unavailable FriendJuan Manuel Attending Unavailable Deneen Garcia Referring Unavailable OLDER, JOSSELIN Referring Unavailable OLDER, OJSSELIN Attending Unavailable Deneen Garcia Primary Care Unavailable Allergies Allergy Classification Reported Allergen(s) Allergy Type Date of Onset Reaction(s) Facility Adhesive Tape (1 source) Adhesive Tape Substance Allergy 4 Rash [facility] amLODIPine (3 sources) amLODIPine Drug Allergy 6 Intolerance [facility] Cats (3 sources) Cat Animal Allergy (Dander) 0 Other: See Comments [facility] POISON KENDY EXTRACT (3 sources) POISON KENDY EXTRACT Drug Allergy 5 Other: See Comments [facility] Pollen (3 sources) Tree and shrub pollen Substance Allergy 1 Itching [facility] (20 sources) amLODIPine; Translations: [AMLODIPINE BESYLATE] Drug Allergy 6 Intolerance [facility] (20 sources) Angiotensin Converting Enzyme (Elliot) Inhibitors; Translations: [ELLIOT INHIBITORS] Propensity to adverse reactions to drug (disorder) 8 Cough [facility] (20 sources) POISON KENDY; Translations: [POISON KENDY] Propensity to adverse reactions (disorder) 5 Other: See Comments [facility] (20 sources) Cat; Translations: [CATS] Allergy to substance 0 Other: See Comments [facility] (20 sources) House dust mite; Translations: [DUST MITES] Propensity to adverse reactions 1 Other: See Comments [facility] (20 sources) Tree and shrub pollen; Translations: [TREE AND SHRUB POLLEN] Propensity to adverse reactions to drug 1 Itching [facility] (20 sources) Adhesive Tape; Translations: [ADHESIVE TAPE (ROSINS)] Allergy to substance 4 Rash [facility] (3 sources) Adhesive Tape; Translations: [adhesive tape] Allergy to substance 4 Rash [facility] (2 sources) amLODIPine Drug Allergy 5 Other [facility] (2 sources) Pollen Propensity to adverse reactions 5 Itching [facility] (3 sources) cat dander; Translations: [cat dander] Propensity to adverse reactions 5 Itching [facility] (3 sources) Environmental Allergies: Uncoded; Translations: [Environmental Allergies: Uncoded] Propensity to adverse reactions 5 Itching [facility] (1 source) amLODIPine Drug Allergy 5 [facility] (1 source) Pollen Drug allergy (disorder) 5 [facility] Medications Current Medications Medication Drug Class(es) Dates Sig (Normalized) Sig (Original) 8 hr acetaminophen 650 mg extended release oral tablet (20 sources) Start: 06-30-2025 take 1 tablet by mouth every twelve hours Start: 05-16-2023 take 1 tablet by hawa th every eight hours as needed acetaminophen (TYLENOL ARTHRITIS PAIN) 650 mg CR tablet Take 1 tablet by mouth every 8 hours as needed. 05/16/2023 Active Comment on above: Take 1 tablet by hawa th every 8 hours as needed. amoxicillin 875 mg / clavulanate 125 mg oral tablet (6 sources) Penicillin-class Antibacterial Start: End: 4 take 1 tablet by mouth twice daily amoxicillin-clavu lanate potassium (AUGMENTIN) 875-125 mg per tablet Take 1 tablet by mouth two times a day for 10 days. 20 tablet 0 04/01/2024 04/11/2024 Active benoxinate hydrochloride 4 mg/ml / fluorescein sodium 3 mg/ml ophthalmic solution (2 sources) Diagnostic Dye Start: End: fluorescein-benox inate 0.3-0.4 % 1 drop (FLURESS) Start: 05-30-2025 End: 05-31-2025 1 drop, BOTH EYES, DIRECT ED, Starting on 05/30/25 at 1430, Until Fri05/31/25 at 0229, Administer for applanation tonometry. In the event of a Fluress shortage, administer Heather-Fluor 1 drop into both eyes as directed for applanation tonometry cholecalciferol 0.05 mg oral capsule (20 sources) Vitamin D Start: 06-30-2025 take 1 capsule by [facility] once daily Start: 11-18-2017 take 1 capsule by mo ut once daily Cholecalciferol, Vitamin D3, 50 mcg (2,000 unit) cap Take 1 capsule by mouth once daily. 0 11/18/2017 Active Comment on above: Take 1 capsule by mo [facility] once daily. clobetasol propionate 0.0005 mg/mg topical ointment (20 sources) Corticosteroid Start: 11-30-2019 End: 04-30-2023 clobetasol (TEMOVATE) 0.05 % ointment Indications: Lichen planus Apply half of one kjriwz-uvb-liye to cover the affected area two days a week. 60 g 3 04/30/2023 Active Comment on above: Apply half of one fi gsbj-gen-byym to cover the affected area two days a week. COMPOUNDED PRESCRIPTION (20 sources) Start: 08-06-2016 COMPOUNDED PRESCRIPTION Indications: Glucose intolerance (impaired glucose tolerance) , BMI 40.0-44.9, adult (HCC) Exercise 30 minutes daily 5 days weekly 1 Each 0 08/06/2016 Active Comment on above: Exercise 30 minutes daily 5 days weekly estradiol 0.1 mg/ml vaginal cream (20 sources) Estrogen Start: 11-10-2023 End: 04-15-2025 estradiol (ESTRACE) 0.01 % (0.1 mg/gram) vaginal cream Indications: Vulvar atrophy , Vaginal atrophy APPLY 1 GRAM OF CREAM TO LOWER VAGINA AND A PEA SIZED AMOUNT TO THE OPENING OF THE VAGINA 3 TIMES WEEKLY 85 g 3 04/15/2025 Active Start: 10-28-2023 Start: 10-28-2023 Estradiol Acti ve 1 APPFUL VAGINAL DAILY October 28, 2023 12:00am Start: 09-23-2022 estradiol (EST RACE) 0.01 % (0.1 mg/gram) vaginal cream Indications: Vulvar atrophy , Vaginal atrophy APPLY 1 GRAM OF CREAM TO LOWER VAGINA AND A PEA SIZED AMOUNT TO THE OPENING OF THE VAGINA 3 TIMES WEEKLY 85 g 3 09/23/2022 Active Start: 03-22-2022 End: 09-23-2022 estradiol (ESTRACE) 0.01 % ( 0.1 mg/gram) vaginal cream Indications: Vulvar atrophy , Vaginal atrophy Apply 1 gram of cream to lower vagina and a pea sized amount to the opening of the vagina three times a week 42.5 g 3 03/22/2022 09/23/2022 Discontinued Start: 01-21-2022 estradiol (EST RACE) 0.01 % (0.1 mg/gram) vaginal cream Indications: Vulvar atrophy , Vaginal atrophy apply approx. 1/2 inch of cream to lower vagina and a pea sized amount to the opening of the vagina qhs x 2 weeks and then twice weekly 42.5 g 1 01/21/2022 Active Comment on above: apply approx. 1/2 in ch of cream to lower vagina and a pea sized amount to the opening of the vagina qhs x 2 weeks and then twice weekly Apply 1 gram of crea m to lower vagina and a pea sized amount to the opening of the vagina three times a week APPLY 1 GRAM OF CREA M TO LOWER VAGINA AND A PEA SIZED AMOUNT TO THE OPENING OF THE VAGINA 3 TIMES WEEKLY ferrous gluconate 225 mg oral tablet (20 sources) Start: 06-30-2025 take 1 tablet by mouth once daily Start: 03-06-2021 End: 02-10-2022 take 1 tablet by mouth once daily Ferrous Gluconate 225 mg (27 mg iron) tab Take 1 tablet by mouth once daily. 30 tablet 11 01/11/2022 Active Comment on above: Take 1 tablet by hawa once daily. ketoconazole 20 mg/ml topical cream (14 sources) Azole Antifungal Start: 11-26-2024 ketoconazole (NIZORAL) 2 % cream Indications: Rash of neck Apply 1 application to affected area once daily. Apply to rash and surrounding area 30 g 11/26/2024 Active loperamide hydrochloride 2 mg oral tablet (20 sources) Opioid Agonist Start: 05-16-2023 loperamide HCl (IMODIUM) 2 mg tab Take 1 tablet by mouth as needed. 05/16/2023 Active Comment on above: Take 1 tablet by hawa as needed. Loratadine (20 sources) Start: 05-22-2022 Start: 05-22-2022 loratadine Act brittni 10 mg DAILY May 22, 2022 12:00am Start: 05-22-2022 loratadine Act brittni 10 MG DAILY May 21, 2022 11:00pm Start: 03-13-2010 loratadine(CLA RITIN 10 MG TAB) Take one(1) tablet daily as needed for allergy symptoms. 0 03/13/2010 Active Comment on above: Take one(1) tablet d aily as needed for allergy symptoms. losartan potassium 50 mg oral tablet (20 sources) Angiotensin 2 Receptor Bill Start: 01-13-2023 End: 03-24-2025 take 1 tablet by mouth twice daily losartan (COZAAR) 50 mg tablet Take 1 tablet by mouth two times a day. 180 tablet 3 03/24/2025 Active Start: 05-22-2022 Start: 05-22-2022 End: 01-10-2023 take 1 tablet by mouth twice daily losartan (COZAAR) 50 mg tablet Take 1 tablet by mouth twice daily. 90 tablet 3 07/02/2022 01/10/2023 Discontinued Start: 04-10-2022 take 1 tablet by hawa th twice daily losartan (COZAAR) 50 mg tablet Take 1 tablet by mouth twice daily. 0 04/10/2022 Active Start: 07-02-2021 End: 04-10-2022 take 1 tablet by mouth once daily losartan (COZAAR) 50 mg tablet Take 1 tablet by mouth once daily. 90 tablet 3 07/02/2021 04/10/2022 Discontinued Comment on above: Take 1 tablet by hawa th once daily. Take 1 tablet by hawa th twice daily. TAKE 1 TABLET BY HAWA TH TWICE DAILY Magnesium (20 sources) MAGNESIUM ORAL T silvia by mouth. Active MAGNESIUM ORAL T silvia by mouth. 0 Active Comment on above: Take by mouth. magnesium citrate 125 mg oral capsule (2 sources) Start: 06-30-2025 take 2 capsules by mouth once daily meclizine hydrochloride 25 mg oral tablet (3 sources) Antiemetic Start: 05-22-2022 take 1 tablet by mouth three times daily as needed for dizziness meloxicam 15 mg oral tablet (20 sources) Nonsteroidal Anti-inflammatory Drug Start: 05-22-2022 Start: 01-14-2022 End: 06-30-2024 take 1 tablet by mouth once daily meloxicam (MOBIC) 15 mg tablet Take 1 tablet by mouth once daily. 90 tablet 3 06/30/2024 Active Start: 03-22-2021 take 1 tablet by hawa th once daily meloxicam (MOBIC) 15 mg tablet Take 1 tablet by mouth once daily. 14 tablet 0 03/22/2021 Active Comment on above: Take 1 tablet by hawa once daily. TAKE 1 TABLET BY HAWA ONCE DAILY multivitamin tablet (20 sources) Start: 06-10-2016 take 1 tablet by mouth twice daily multivitamin tablet Take 1 tablet by mouth twice daily. 06/10/2016 Active Start: 06-10-2016 take 1 tablet by hawa twice daily multivitamin tablet Take 1 tablet by mouth twice daily. 0 06/10/2016 Active Comment on above: Take 1 tablet by hawa twice daily. Multivitamin tablet (2 sources) Start: 06-30-2025 Start: 06-30-2025 Multivitamin t ablet Active 1 {tbl} PO daily June 30, 2025 12:00am multivitamin with minerals ( HAIR,SKIN AND NAILS ORAL) (20 sources) multivitamin wit h minerals (HAIR,SKIN AND NAILS ORAL) Take by mouth. Active multivitamin wit h minerals (HAIR,SKIN AND NAILS ORAL) Take by mouth. 0 Active Comment on above: Take by mouth. nirmatrelvir tablet 300 mg (150 mg x [...] daily. 30 tablet 0 05/16/2023 05/21/2023 Active Comment on above: Administer TWO pink nirmatrelvir 150 mg tablets and ONE white ritonavir 100 mg tablet for a total of three tablets twice daily. omeprazole 40 mg delayed release oral capsule (20 sources) Proton Pump Inhibitor Start: 05-22-2022 Start: 04-01-2022 End: 02-16-2025 take 1 capsule by mouth once daily omeprazole (PRILOSEC) 40 mg capsule Take 1 capsule by mouth once daily. 90 capsule 3 02/17/2025 Active Start: 03-06-2021 End: 03-30-2022 take 1 capsule by mouth once daily omeprazole (PRILOSEC) 40 mg capsule Take 1 capsule by mouth once daily. 90 capsule 3 03/06/2021 03/30/2022 Discontinued Comment on above: Take 1 capsule by mo [facility] once daily. TAKE 1 CAPSULE BY [facility] ONCE DAILY predniSONE 10 mg oral tablet (6 sources) Start: 05-06-20 End: 05-21-20 predniSONE (DELTASONE) 10 mg tablet Take 4 tabs daily for 3 days, then 2 tabs daily for 3 days, then 1 tab daily for 3 days with food. 21 tablet 05/12/2025 05/21/2025 Active spironolactone 25 mg oral tablet (13 sources) Aldosterone Antagonist Start: 03-24-20 take 1 tablet by mouth once daily terbinafine hydrochloride 10 mg/ml topical cream (11 sources) Allylamine Antifungal Start: 03-24-20 terbinafine HCl (LAMISIL AT) 1 % cream Apply to affected area two times a day. 28.9 g 3 03/24/2025 Active zolpidem tartrate 10 mg oral tablet (20 sources) gamma-Aminobutyric Acid-ergic Agonist Start: 06-30-20 take 1 tablet by mouth at bedtime Start: 02-27-2024 End: 06-30-2026 zolpidem (AMBIEN) 10 mg Mary cations: Insomnia, unspecified type Use half to one tablet as needed. 30 tablet 02/22/2025 06/30/2026 Active Start: 07-17-2022 End: 02-18-2024 zolpidem (AMBIEN) 10 mg Mary cations: Insomnia, unspecified type Use half to one tablet as needed. 30 tablet 0 07/31/2022 02/18/2024 Discontinued Start: 07-02-2021 zolpidem (AMBI EN) 10 mg Indications: Insomnia, unspecified type Use half to one tablet as needed. 30 tablet 0 07/02/2021 Active Comment on above: Use half to one tabl et as needed. Completed/Discontinued Medications Medication Drug Class(es) Dates Sig (Normalized) Sig (Original) acetaminophen 325 mg / oxyCODONE hydrochloride 5 mg oral tablet (3 sources) Opioid Agonist Start: 10-28-2023 End: 06-30-2025 Oxycodone-Acetamino phen (Percocet) 5-325 mg tablet Discontinued 1 {tbl} PO EVERY 6 HOURS as needed for pain 12 3 0 October 28, 2023 June 30, 2025 2:22pm Fracture of proximal end of humerus calcium carbonate 1250 mg / cholecalciferol 0.01 mg chewable tablet (20 sources) Vitamin D Start: 11-18-2017 take 1 tablet by mouth twice daily calcium carbonate-vitamin D3 (OSCAL+D) 500 mg-10 mcg (400 unit) chewable tablet Take 1 tablet by mouth twice daily. 0 11/18/2017 Active Comment on above: Take 1 tablet by hawa twice daily. phenylephrine hydrochloride 25 mg/ml ophthalmic solution (5 sources) alpha-1 Adrenergic Agonist Start: 05-30-2025 End: 05-30-2025 PHENYLephrine 2.5 % 1 drop (AK-DILATE, JACE-SYNEPHRINE) Start: 05-30-2025 End: 05-30-2025 1 drop, BOTH EYES, ONCE, 1 d ose, On Fri05/30/25 at 1530, FOR OPHTHALMIC USE ONLY PROTECT FROM LIGHT Start: 04-13-2024 End: 04-13-2024 PHENYLephrine 2.5 % 1 Drop ( AK-DILATE, JACE-SYNEPHRINE) Start: 08-01-2022 End: 08-01-2022 PHENYLephrine 2.5 % 1 Drop ( AK-DILATE, JACE-SYNEPHRINE) proparacaine hydrochloride 5 mg/ml ophthalmic solution (3 sources) Local Anesthetic Start: 04-13-2024 End: 04-13-2024 proparacaine 0.5 % 1 Drop (ALCAINE) Start: 08-01-2022 End: 08-01-2022 proparacaine 0.5 % 1 Drop (A LCAINE) tropicamide 10 mg/ml ophthalmic solution (5 sources) Anticholinergic Start: 05-30-2025 End: 05-30-2025 tropicamide 1 % 1 drop (MYDRIACYL) Start: 05-30-2025 End: 05-30-2025 1 drop, BOTH EYES, ONCE, 1 d ose, On Fri05/30/25 at 1530, FOR THE EYE Start: 04-13-2024 End: 04-13-2024 tropicamide 1 % 1 Drop (MYDR IACYL) Start: 08-01-2022 End: 08-01-2022 tropicamide 1 % 1 Drop (MYDR IACYL) Problems Active Problems Problem Classification Problem Date Documented Da te Episodic/Chronic Abdominal pain (2 sources) Pain in female pelvis; Translations: [Pelvic and perineal pain] Episodic Blindness and vision defects (20 sources) Bilateral myopia of eyes; Translations: [Myopia, bilateral] Onset: 9 02-01-2019 Episodic Cataract (5 sources) Bilateral senile combined form cataracts of eyes; Translations: [Combined forms of age-related cataract, bilateral] Onset: 5 Chronic Conditions associated with dizziness or vertigo (3 sources) Intermittent vertigo; Translations: [Dizziness and giddiness] 05-30-2022 Episodic Deficiency and other anemia (1 source) Iron deficiency anemia secondary to inadequate dietary iron intake; Translations: [Other iron deficiency anemias] 05-04-2024 Episodic Disorders of lipid metabolism (7 sources) Hypertriglyceridemia; Translations: [Pure hyperglyceridemia] Onset: 5 Chronic E Codes: Fall (6 sources) Fall; Translations: [Unspecified fall, initial encounter] 10-28-2023 Episodic Esophageal disorders (20 sources) Gastroesophageal reflux disease without esophagitis; Translations: [Gastro-esophageal reflux disease without esophagitis] 03-10-2019 Chronic Essential hypertension (20 sources) Essential hypertension; Translations: [Essential (primary) hypertension] Onset: 5 09-01-2015 Chronic Fracture of upper limb (20 sources) Fracture of upper end of humerus; Translations: [Unspecified fracture of upper end of right humerus, initial encounter for closed fracture] Onset: 4 10-28-2023 Episodic Genitourinary symptoms and ill-defined conditions (2 sources) Urge incontinence of urine; Translations: [Urge incontinence] Chronic Genitourinary symptoms and ill-defined conditions (1 source) Urgent desire to urinate; Translations: [Urgency of urination] Episodic Headache; including migraine (1 source) Headache; Translations: [Headache, unspecified headache type] Episodic Hemorrhoids (1 source) Bleeding hemorrhoids; Translations: [Unspecified hemorrhoids] 04-08-2024 Episodic Lymphadenitis (8 sources) Lymphadenopathy of head AND/OR neck; Translations: [Localized enlarged lymph nodes] 03-31-2024 Episodic Malaise and fatigue (7 sources) Fatigue; Translations: [Other fatigue] 03-31-2024 Episodic Menopausal disorders (5 sources) Atrophy of vagina; Translations: [Postmenopausal atrophic vaginitis] Chronic Mycoses (1 source) Tinea corporis; Translations: [Tinea corporis] 03-24-2025 Episodic Nonmalignant breast conditions (1 source) Almost entirely fat breast composition; Translations: [Almost entirely fatty tissue of both breasts on mammography] 12-01-2023 Episodic Nutritional deficiencies (4 sources) Vitamin D deficiency; Translations: [Vitamin D deficiency, unspecified] Onset: Chronic Osteoarthritis (20 sources) Localized, primary osteoarthritis; Translations: [Unilateral primary osteoarthritis, unspecified knee] Onset: 07-10-2009 Chronic Osteoporosis (2 sources) Senile osteoporosis; Translations: [Age-related osteoporosis without current pathological fracture] Chronic Other and unspecified benign neoplasm (1 source) Personal history of colonic polyps; Translations: [Personal history of colonic polyps] Onset: Episodic Other and unspecified benign neoplasm (1 source) Senile angioma; Translations: [Hemangioma of skin and subcutaneous tissue] 06-22-2024 Episodic Other and unspecified benign neoplasm (1 source) Multiple benign melanocytic nevi ; Translations: [Melanocytic nevi, unspecified] 06-22-2024 Episodic Other and unspecified benign neoplasm (2 sources) History of polyp of colon; Translations: [History of adenomatous and serrated colon polyps] 06-30-2025 Episodic Other bone disease and musculoskeletal deformities (20 sources) Disorder of skeletal system; Translations: [Disorder of bone, unspecified] 06-02-2008 Episodic Other bone disease and musculoskeletal deformities (1 source) Osteopenia; Translations: [Other specified disorders of bone density and structure, unspecified site] Episodic Other circulatory disease (2 sources) H/O: hypertension; Translations: [Personal history of other diseases of the circulatory system] 05-04-2024 Episodic Other female genital disorders (6 sources) Atrophic vulva; Translations: [Atrophy of vulva] Episodic Other gastrointestinal disorders (2 sources) Irritable bowel syndrome with diarrhea; Translations: [Irritable bowel syndrome with diarrhea] 06-30-2025 Chronic Other hereditary and degenerative nervous system conditions (1 source) Impaired cognition; Translations: [Mild cognitive impairment, so stated] 05-26-2024 Chronic Other inflammatory condition of skin (2 sources) Lichen planus; Translations: [Lichen planus, unspecified] 04-28-2023 Episodic Other liver diseases (1 source) Increased vitamin B; Translations: [Abnormal levels of other serum enzymes] 05-04-2024 Episodic Other nervous system disorders (1 source) Other chronic pain; Translations: [Other chronic pain] Onset: Chronic Other non-traumatic joint disorders (1 source) Pain of right shoulder joint; Translations: [Pain in right shoulder] 11-02-2023 Episodic Other non-traumatic joint disorders (2 sources) Pain in left knee; Translations: [Acute pain of left knee] Onset: Episodic Other nutritional; endocrine; and metabolic disorders (1 source) Severe obesity; Translations: [Morbid (severe) obesity due to excess calories] 05-26-2024 Chronic Other nutritional; endocrine; and metabolic disorders (2 sources) Morbid obesity; Translations: [Morbid (severe) obesity due to excess calories] 03-24-2025 Chronic Other nutritional; endocrine; and metabolic disorders (1 source) Morbid (severe) obesity due to excess calories; Translations: [Morbid obesity (HCC)] Onset: Chronic Other nutritional; endocrine; and metabolic disorders (2 sources) Weight decreased; Translations: [Abnormal weight loss] 05-04-2024 Episodic Other skin disorders (1 source) Epidermoid cyst; Translations: [Epidermal cyst] Episodic Other skin disorders (1 source) Seborrheic keratosis; Translations: [Other seborrheic keratosis] 06-22-2024 Episodic Other skin disorders (1 source) Lentiginosis; Translations: [Other melanin hyperpigmentation] 06-22-2024 Episodic Other skin disorders (1 source) Milia; Translations: [Epidermal cyst] 06-22-2024 Episodic Other skin disorders (1 source) Disorder of skin of neck; Translations: [Rash and other nonspecific skin eruption] 11-26-2024 Episodic Other upper respiratory disease (20 sources) Allergic rhinitis; Translations: [Allergic rhinitis, unspecified] 09-24-2006 Chronic Other upper respiratory infections (5 sources) Sore throat symptom; Translations: [Acute pharyngitis, unspecified] 03-31-2024 Episodic Prolapse of female genital organs (1 source) Midline cystocele; Translations: [Cystocele, midline] Chronic Residual codes; unclassified (1 source) Pain; Translations: [Pain, unspecified] 12-08-2023 Episodic Residual codes; unclassified (1 source) Dependent edema; Translations: [Edema, unspecified] 04-08-2024 Episodic Residual codes; unclassified (2 sources) Memory impairment; Translations: [Other amnesia] 05-04-2024 Episodic Skin and subcutaneous tissue infections (3 sources) Cellulitis; Translations: [Cellulitis, unspecified] 04-08-2024 Episodic Superficial injury; contusion (3 sources) Contusion of scalp; Translations: [Contusion of scalp, initial encounter] 05-30-2022 Episodic Unclassified (2 sources) Acute pain of left knee 05-06-2025 Unclassified (1 source) F/U 3 Month Onset: Viral infection (1 source) Disease caused by 2019-nCoV; Translations: [COVID-19] 05-16-2023 Episodic Past or Other Problems Problem Classification Problem Date Documented Date Episodic/Chronic Abdominal hernia (20 sources) Hiatal hernia; Translations: [Diaphragmatic hernia without obstruction or gangrene] Onset: 11-19-2019 11-19-2019 Episodic Deficiency and other anemia (20 sources) Iron deficiency anemia; Translations: [Iron deficiency anemia, unspecified] Onset: 09-15-2007 02-10-2019 Episodic Diabetes mellitus without complication (20 sources) Impaired glucose tolerance; Translations: [Impaired glucose tolerance (oral)] Onset: 08-06-2016 08-06-2016 Episodic Diseases of white blood cells (20 sources) Leukocytosis; Translations: [Elevated white blood cell count, unspecified] Onset: 03-09-2013 Resolved: 04-06-2015 04-06-2015 Chronic Gastritis and duodenitis (20 sources) Acute gastritis; Translations: [Acute gastritis without bleeding] Onset: 10-12-2007 10-12-2007 Episodic Mood disorders (20 sources) Depressive disorder; Translations: [Other specified depressive episodes] Resolved: 11-19-2019 11-19-2019 Chronic Noninfectious gastroenteritis (20 sources) Chronic diarrhea; Translations: [Noninfective gastroenteritis and colitis, unspecified] Onset: 03-09-2013 07-02-2023 Episodic Nutritional deficiencies (2 sources) Cobalamin deficiency; Translations: [Deficiency of other specified B group vitamins] Onset: 11-19-2024 11-17-2024 Episodic Other and unspecified benign neoplasm (20 sources) Tubular adenoma of colon; Translations: [Benign neoplasm of colon, unspecified] Onset: 01-13-2013 10-15-2021 Episodic Other connective tissue disease (20 sources) Impingement syndrome of right shoulder region; Translations: [Impingement syndrome of right shoulder] Onset: 02-13-2018 02-13-2018 Episodic Other nervous system disorders (20 sources) Impairment of balance; Translations: [Other abnormalities of gait and mobility] Onset: 07-15-2023 06-26-2023 Episodic Other non-traumatic joint disorders (20 sources) Shoulder joint pain; Translations: [Pain in unspecified shoulder] Onset: 12-23-2013 12-23-2013 Episodic Other non-traumatic joint disorders (20 sources) Pain in right knee; Translations: [Pain in joint, lower leg] Onset: 07-15-2023 07-02-2023 Episodic Other nutritional; endocrine; and metabolic disorders (20 sources) Body mass index 40+ - severely obese; Translations: [Body mass index (BMI) 40.0-44.9, adult] Onset: 08-02-2013 Resolved: 04-23-2024 08-02-2013 Chronic Other screening for suspected conditions (not mental disorders or infectious disease) (15 sources) Patient encounter status; Translations: [Encounter for screening mammogram for malignant neoplasm of breast] Onset: 11-19-2024 Episodic Residual codes; unclassified (20 sources) Insomnia; Translations: [Insomnia, unspecified] Onset: 11-19-2019 11-19-2019 Episodic Sprains and strains (20 sources) Rupture of skeletal muscle; Translations: [Strain of unspecified quadriceps muscle, fascia and tendon, initial encounter] Onset: 08-01-2010 Resolved: 04-06-2015 04-06-2015 Episodic Results Test Name Value Interpretation Reference Range Facility OVon 07-01-2025 CNOV Office Visit (INTMWS ) JESSICA WORRELL ([id number]) 1950 F [facility] Date Time Provider Department 07/01/25 3:00 PM DENEEN GARCIA During your visit today, we recorded the following information about you: Pulse Respiration Blood pressure Weight 94/minute 16/minute 135/79 105.7 kg Deneen Garcia MD 07/01/2025 5:13 PM Signed Reason for Visit Follow up HPI Pearl Worrell is a 74-year-old female with a history of HTN and bilateral knee osteoarthritis, presenting for follow-up on knee pain and weight management. Pearl reports a sudden onset of severe knee pain in April, which rendered her unable to ambulate. She attempted conservative management, including rest, bathing, and using a cane, but the pain persisted for a week. She sought medical attention and was prescribed cortisone, which alleviated the pain. X-rays were performed, revealing bone on bone changes. She was referred to physical therapy and had an initial assessment but has not yet started the therapy sessions. She expresses fear of engaging in physical activity due to the severity of the pain experienced in April. Recently, she has been more active, walking approximately 5,000 steps on two consecutive days, which she notes is a significant increase for her. She reports a recurrence of knee pain this morning, described as a little twinge, similar to the initial onset in April. She attributes this to overexertion and expresses a desire to continue physical therapy to safely increase her activity level. Pearl has a history of bilateral knee injuries in her 20s, which she managed conservatively. She recalls a previous recommendation to strengthen the muscles around her knees to reduce joint stress. She denies current pain with ambulation but is concerned about the potential need for knee surgery in the future. She is also focused on weight management, having gained 5 lbs over the summer. She has been attempting to lose weight by avoiding desserts for the past 2 weeks. She recalls previous successful weight loss with a high-protein, low-vegetable diet. She expresses interest in understanding the mechanisms of her current medications, spironolactone and losartan, and their effects on her body. She wears compression socks most of the time to manage fluid retention. She has a family history of knee replacements in her sisters, who also had bone on bone changes. She is aware of the potential need for a BMI of less than 35 for surgical consideration and is exploring options for weight loss, including the possibility of medications like Ozempic. She expresses a desire to improve her physical condition and quality of life, stating, If I had to live in this body the way it is today for another 20 years, which I expect to have, I won't be happy. SOCIAL HISTORY[1] Past medical history, appointments, medications, allergies reviewed. Pertinent Lab/Diagnostic Studies are reviewed and discussed today Current Outpatient Medications: estradiol (ESTRACE) 0.01 % (0.1 mg/gram) vaginal cream losartan (COZAAR) 50 mg tablet spironolactone (ALDACTONE) 25 mg tablet terbinafine HCl (LAMISIL AT) 1 % cream zolpidem (AMBIEN) 10 mg omeprazole (PRILOSEC) 40 mg capsule ketoconazole (NIZORAL) 2 % cream meloxicam (MOBIC) 15 mg tablet loperamide HCl (IMODIUM) 2 mg tab acetaminophen (TYLENOL ARTHRITIS PAIN) 650 mg CR tablet clobetasol (TEMOVATE) 0.05 % ointment Ferrous Gluconate 225 mg (27 mg iron) tab MAGNESIUM ORAL multivitamin with minerals (HAIR,SKIN AND NAILS ORAL) COMPOUNDED PRESCRIPTION multivitamin tablet loratadine(CLARITIN 10 MG TAB) Health Maintenance DTaP,Tdap,Td Vaccine(2 - Td or Tdap) Advance Directive Discussion Medicare Advantage Annual Wellness Visit Influenza Vaccine(1) Mammogram Screening@ Review Of Systems Musculoskeletal: (+) knee pain, (+) ankle stiffness, (-) pain with walking Physical Exam BP 135/79 Pulse 94 Resp 16 Wt 105.7 kg (233 lb 1.9 oz) BMI 41.30 kg/m? GENERAL: NAD, alert and oriented. SKIN: Unremarkable, no rash or skin lesions. HEAD: Normocephalic. EYES: PERRLA, EOMI, conjunctiva clear. LUNGS: Clear to auscultation bilaterally, no wheezes/rhonchi/rales. HEART: Regular rate and rhythm, no murmurs. No ectopy. EXTREMITIES: Normal, no deformities, no skin discoloration, no edema. NEURO: Awake, alert and oriented x3, cranial nerves II-XII grossly intact, normal gait, no involuntary motions. Labs: - BMP: Within normal limits Imaging: - (April) Knee X-ray: Degenerative changes described as ?bone on bone.? Assessment and Plan 1. Essential hypertension (I10) Blood pressure is well controlled on current regimen of spironolactone and losartan; potassium levels remain within normal limits. - Continue spironolactone and losartan as prescribed. - Educated patient on the mechanisms of ac (more content not included)... Normal [facility] Gastroenterology Visit Repor ton 06-30-2025 Gastroenterology Visit Report [facility] [address] [place] [address] OFFICE VISIT Date of Service: 06/30/25 MR#: [id number] Acct: [id number] Name: JESSICA WORRELL Rep #: [id number] : 1950 Provider: Juan Manuel Park DO Age/Sex: 74/F [place] [facility] [place] Status: Signed Intake Vital Signs 04/26/24 12:52 Height 5 ft 3 in Intake Visit Reasons: PRE COLONOSCOPY HX OF GERD DYSPHAGIA HPYLORI Allergies adhesive tape Allergy (Verified 04/26/24 12:59) Rash ELLIOT Inhibitors Adverse Reaction (Unknown, Verified 06/30/25 14:32) cough amlodipine Adverse Reaction (Unknown, Verified 06/30/25 14:32) Other cat dander (cats) Adverse Reaction (Unknown, Verified 06/30/25 14:32) Itching Environmental Allergies: Uncoded (dust mites) Adverse Reaction (Unknown, Verified 06/30/25 14:32) Itching pollen extracts (pollens) Adverse Reaction (Unknown, Verified 06/30/25 14:32) Itching Have you fallen in the past year?: No [facility] Medical History (Updated 06/30/25 @ 19:[address] Juan Manuel Park, ) Vitamin D deficiency Osteopenia Osteoarthritis Pancreatitis GERD (gastroesophageal reflux disease) Hypertension Gallstones Arthritis Anemia Rupture quadriceps tendon Cholecystectomy planned Vertigo Surgical History Hx of cholecystectomy History of hysterectomy Social History (Updated 06/30/25 @ 14:42 by Vilma Tineo) Smoking Status: Never smoker alcohol intake: current substance use type: does not use HPI HPI Details: JESSICA WORRELL, is a 74 F who presents to the office today for initial consult. *[facility] established 06.30.25 pt reports that she is here to establish care with GI in [place]. Was previously seeing [facility] in [place], but moved to [place] 2-3 years ago. Pt reports her last EGD and Colonoscopy were about 2-3 years ago. Pt reports she has had 2 EGD with dilation for Schatzki ring. Pt reports omeprazole is effective for her HB. Pt reports taking daily Imodium for diarrhea. She has a history of gastroesophageal reflux disease and irritable bowel syndrome with diarrhea (IBS-D). Her???symptoms include retrosternal burning and regurgitation, which have worsened over the last few weeks. She has been taking omeprazole daily for a prolonged period. Aggravating factors include eating large meals, especially at night. Alleviating factors include using antacids, though these have become less effective. Her bowel movements are characterized by frequent loose stools, urgency, and occasional abdominal cramping. She reports taking daily loperamide, which provides partial relief. Her symptoms appear to be triggered by certain foods, though she has not identified specific items. She denies any bloody stools or unintentional weight loss. She was previously diagnosed with iron deficiency anemia and takes daily iron supplements. The most recent lab values are unknown. She reports feeling more fatigued than usual. Diagnostic Data:???(To be obtained) * Lab work:???Complete blood count (CBC) to check for anemia, iron studies (serum iron, ferritin, and total iron-binding capacity), magnesium level due to long-term omeprazole use, and stool studies (e.g.,???C. difficile, fecal calprotectin) to evaluate chronic diarrhea. * Imaging/Procedures:??? Esophagogastroduodenos copy (EGD) may be indicated for further GERD evaluation given long-term PPI use and age. Colonoscopy may be necessary to rule out other causes of chronic diarrhea in the elderly, especially given the history of iron deficiency. ROS Const Constitutional: Positive for fatigue and weight change (weight loss); No fever(s) ENT ENT: No difficulty swallowing Cardio Cardiology: Positive for leg pain with exertion Gastro GI: Positive for diarrhea and heartburn; No abdominal pain, belching, bloating, change in bowel habits, change in stool character, coffee ground emesis, constipation, cramping, difficulty swallowing, feeling full early, excessive flatus, incontinent of stools, Vomiting blood/hematemesis, Blood in stool, loose stools, Black,tarry stools, nausea/dyspepsia, pain with swallowing, vomiting or other Musc Musculoskeletal: Positive for joint pain, stiffness, Arthritis and leg pain with exertion Skin Skin: Positive for dry skin; No yellowing of the eye or itchy eyes Psych Psychiatric: No anxiety, No depression and Positive for inattentiveness Endo Endocrine: Positive for fatigue and weight change (weight loss) Aller/Imm Allergy/Immunologic: No itchy eyes Roberto/Lymp Hematologic/Lymphatic: No easy bleeding or easy bruising Exam Const General: cooperative, healthy appearing, comfortable and no acute distress Nutritional Appearance: well nourished Orientation: alert, awake and oriented x3 HENMT Head: normal to (more content not included)... Normal [facility] Inital Evaluation (1) - PTon 06-28-2025 Inital Evaluation (1) - PT [facility] Physical Therapy [facility] [address] [place] [address] / REHABILITATION SERVICES INITIAL EVALUATION MR#: [id number] Acct: [id number] Name: JESSICA WORRELL Rep #: [id number] : 1950 74 From: Antolin Kahn DPT, OCS, CSCS Referring Dr.: EZEQUIEL NAPIER Status: REG RCR Insurance: [facility] MEDICARE ADVANTAGE SELF PAY INSURANCE Patient's Visit Information Visit Information Visit Information: JESSICA WORRELL is a 74 year old F referred to Physical Therapy by EZEQUIEL NAPIER with a diagnosis of Chronic L knee pain. Date of Evaluation: 06/28/25 Physical Therapist: Antolin Kahn DPT, OCS, CSCS Visit Plan Frequency: 3x /Week Duration: 2-4 Weeks Plan: 3x/week for 2-4 weeks for: IE HEP prone quad stretch 30 5x daily. Treat with slow progression and instruction in machine based gym program to include knee ext if tolerated, leg curl, leg press, hip abd, hip add, back ext, abs, heel raises, pull down, row. Progress until tolerated adn I. Subjective Subjective: Pearl Used to work out at but tried 2 months ago and could not walk the next day. 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 Gave it a week and then went to doctor adn got steroids which took care of all the pain. Was walking on TM 30 minutes slowly, 2nd day resistance adn 3rd day functional room. Functional room flared her up , maybe with supine ball twists and bugs. H/o two knee injuries in youth and tendon tears in L knee around 2009. Knee had been OK since then. L knee flared up. X ray showed OA bone on bone medial. Now scared to get back to workout. Basic ADLs at home: all I. Steps to basement and does not need them, once per week wihtout a problem but holds on and uses R. Lives with . Pain is not a big issue but is afraid to exercise. Can get on and off floor but it takes some time. 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 Wants gym program at . Objective Objective: Sensation LE WNL to gross light touch strength hips 3+ abd and xt adn 4- flexion, SLR without lag B. Knee xt adn flexion 4- B, ankles 4- /5 all directions tightness in HS and quad mod B. -25 90/90 tests. + L scour. - bounce home. Walksing without gait deficits into PT I. Trasnfer chair and bed without pain I. AROM L knee -2 to 108 and R knee -1 to 120. hip aROM to 5 ext B and WNL otherwise. ankles AROM WNL Balance/Special Test Scores Functional Gait Assessment Score: 27 % Disability: 10.0000 Lower Extremity Functional Score: 36 Goals Goal 1:: I appropriate gym based workout without increased pain for L knee and general health Goal Time Frame: 4-6 Weeks Goal 2:: Pain in knee 0/10 and 100% better Goal Time Frame: 4-6 Weeks Goal 3:: LEFS 45 to show improved confidence in legs. Goal Time Frame: 4-6 Weeks Rehabilitation Potential Physical Therapy Diagnosis: Fear avoidance of workout for L knee OA. Rehabilitation Potential: Fair Anticipated Interventions Patient/Client Instruction: Educate patient on: Condition and Plan of Care For the Purpose of:: To decrease pain, To increase ROM, To improve nutrient delivery to tissue, To improve muscle performance and motor function and To increase tolerance to activity/condition/pos ition Therapeutic Exercise to Include: Strength training, Flexibilty training, Passive ROM and Active ROM For the Purpose of:: To decrease pain, To increase ROM, To improve nutrient delivery to tissue and To improve muscle performance and motor function Text: Thank you for the opportunity to evaluate your patient. For Medicare and Medicare HMO plans, please review the plan of care and approve it. It will need to be FAXED BACK to us at [phone] for Medicare purposes. For Medicare only, by signing this I certify the plan of care. Please let me know if there are questions or concerns regarding this plan of care. Physician Signature: Date:__ 06/28/25 1400 CC: EZEQUIEL STEVENS; Dr. Deneen Garcia MD EBG Signed Normal [facility] 05-11-2025 [facility] Telephone (RENETTAWS) JESSICA WORRELL ([id number]) 1950 F [facility] Date Time Provider Department 05/11/25 JOSSELIN STEVENS During your visit today, we recorded the following information about you: Kirsten Whitehead, TYREE 05/11/2025 12:30 PM Signed Pt called in and reports she took her first 2 days of Prednisone. Which would have been 4 tablets a day. The yesterday she couldn't find them after going to pick pack worker her grandchildren, and states they looked for them all day. She reports she missed all of yesterdays dose and today's. She reports her knee was starting to feel better, but now today it's hurting. She was asking if the provider would call in the rest the prednisone order in to [facility] in [place] for her. Please call Pt back and advise. Pt was also asking if provider could put in a new referral for Gastro consult. She states the one that was placed was for inside the [facility] and she is going to see Dr Friend. TYREE Pretty Joy, APRN.HERACLIO 05/12/2025 7:51 AM Signed Prescription resent. And consult placed. Please fax as requested. Thank you oJsselin Stevens APRN.POINT OF CARE TECHNICIAN Keesha Cortes MA 05/12/2025 9:41 AM Signed Patient notified, referral was faxed yesterday in previous TE. Allergies As of Date: 05/11/2025 Noted Allergy Reaction ELLIOT INHIBITORS 11/18/2017 3 - Cough CATS 11/30/2019 14 - Other: See Comments NORVASC (AMLODIPINE BESYLATE) 08/14/2016 5 - Intolerance Comments: Lower extremity swelling POISON KENDY 04/06/2015 14 - Other: See Comments Comments: Spreads all over body. ADHESIVE TAPE (ROSINS) 10/28/2023 2 - Rash DUST MITES 03/06/2021 14 - Other: See Comments Comments: Sneezing, sore throat, burning eyes TREE AND SHRUB POLLEN 03/06/2021 9 - Itching Comments: Itching in eyes and arms Date Reviewed: 05/06/2025 Reviewed by: Evelyn Wilkes MA - Fully Assessed Reason for Visit: Medication Problem [65] Consult [502] Primary Visit Diagnosis:Gastroesopha geal reflux disease without esophagitis [K21.9] Other Visit Diagnoses:Schatzki's ring [K22.2] Hiatal hernia [K44.9] Order(s):CONSULT TO GASTROENTEROLOGY [9010] Order #: [id number]: 1 FUTURE predniSONE (DELTASONE) 10 mg tabletTake 4 tabs daily for 3 days, then 2 tabs daily for 3 days, then 1 tab daily for 3 days with food.Disp: 21 tabletRfl: 0 Prescriptions as of 05/12/2025 - predniSONE (DELTASONE) 10 mg tablet Take 4 tabs daily for 3 days, then 2 tabs daily for 3 days, then 1 tab daily for 3 days with food. - estradiol (ESTRACE) 0.01 % (0.1 mg/gram) vaginal cream APPLY 1 GRAM OF CREAM TO LOWER VAGINA AND A PEA SIZED AMOUNT TO THE OPENING OF THE VAGINA 3 TIMES WEEKLY - losartan (COZAAR) 50 mg tablet Take 1 tablet by mouth two times a day. - spironolactone (ALDACTONE) 25 mg tablet Take 1 tablet by mouth once daily. - terbinafine HCl (LAMISIL AT) 1 % cream Apply to affected area two times a day. - zolpidem (AMBIEN) 10 mg Use half to one tablet as needed. - omeprazole (PRILOSEC) 40 mg capsule Take 1 capsule by mouth once daily. - ketoconazole (NIZORAL) 2 % cream Apply 1 application to affected area once daily. Apply to rash and surrounding area - meloxicam (MOBIC) 15 mg tablet Take 1 tablet by mouth once daily. - loperamide HCl (IMODIUM) 2 mg tab Take 1 tablet by mouth as needed. - acetaminophen (TYLENOL ARTHRITIS PAIN) 650 mg CR tablet Take 1 tablet by mouth every 8 hours as needed. - clobetasol (TEMOVATE) 0.05 % ointment Apply half of one [id number] to cover the affected area two days a week. - Ferrous Gluconate 225 mg (27 mg iron) tab Take 1 tablet by mouth once daily. - MAGNESIUM ORAL Take by mouth. - multivitamin with minerals (HAIR,SKIN AND NAILS ORAL) Take by mouth. - COMPOUNDED PRESCRIPTION Exercise 30 minutes daily 5 days weekly - multivitamin tablet Take 1 tablet by mouth twice daily. - loratadine(CLARITIN 10 MG TAB) Take one(1) tablet daily as needed for allergy symptoms. Problem List As Of Date 05/11/2025 Noted Resolved Depressive disorder, not elsewhere classified [* 11/19/2019 ALLERGIC RHINITIS NOS [J30.9] Gastroesophageal reflux disease without esophag* IRON DEFIC ANEMIA NOS [D50.9] 09/15/2007 ACUTE GASTRITIS W/O HEMORRHAGE [K29.00] 10/12/2007 Osteopenia [M89.9, M94.9] Primary Localized Osteoarthrosis, Lower Leg [M1*07/10/2009 Quadriceps muscle rupture [S76.119A] 08/01/2010 04/06/2015 Tubular adenoma of colon [D12.6] 01/13/2013 Chronic diarrhea [K52.9] 03/09/2013 Leucocytosis [D72.829] 03/09/2013 04/06/2015 BMI 40.0-44.9, adult (HCC) [Z68.41] 08/02/2013 04/23/2024 Pain in joint, shoulder region [M25.519] 12/23/2013 Essential hypertension [I10] 09/01/2015 Glucose intolerance (impaired glucose tolerance*08/06/2016 Impingement syndrome of right shoulder [M75.41] 02/13/2018 Arthritis of right shoulder region [M19.011] 02/16/2018 Myopia of both eyes [H52.13] (more content not included)... Normal [facility] CNOVon 05-06-2025 CNOV Office Visit (INTMWS ) JESSICA WORRELL ([id number]) 1950 [facility] Date Time Provider Department 05/06/25 2:00 PM JOSSELIN STEVENS INTMWS During your visit today, we recorded the following information about you: Pulse Respiration Blood pressure Weight 101/minute 16/minute 142/80 107 kg Josselin Stevens APRN.POINT OF CARE TECHNICIAN 05/06/2025 3:11 PM Signed CC: Patient presents with: Knee Pain HPI Jessicaanish Worrell is a 74 year old female who presents today for left knee pain. Recording using One [employer] software for draft documentation of the visit was discussed with the patient/authorized medical device sales representative; all questions welcomed and answered. Patient/authorized medical device sales representative agreed to proceed Left Knee Pain: - Acute onset of left knee pain and stiffness began last morning. - Denies known trauma or injury; pain began after a workout at [employer] the previous evening. - Exercises included teapots with a 10 lb ball, Maltese twists, and other knee exercises; denies pain during the workout. - History of ruptured quadriceps tendon in 2009, repaired by Dr. Carver in [place]. - Previous incidents of knee swelling in college and seminary after twisting the knee on a [employer] bus. - Using a cane for ambulation; reports pain when bending the knee and stepping down stairs. - Sensation of potential instability in the knee when walking, but no actual giving way. - Taking arthritis strength Tylenol BID for years; avoids NSAIDs due to omeprazole use and she is already on mobic for known arthritis - Denies applying ice to the knee. - Previous use of prednisone for inflammation; tolerates well. Denies redness, fever, chills, numbness, or weakness. REVIEW OF SYSTEMS See HPI PAST MEDICAL HISTORY Diagnosis Date Acute gastritis without mention of hemorrhage Allergic rhinitis, cause unspecified BMI 40.0-44.9, adult ([facility]) 08/02/2013 Cataract Corneal abrasion 20 y ago [...] OVARY 10/20/2002 Hysterectomy, BETO left ovaries ALLERGIES Elliot Inhibitors, Cats, Norvasc [Amlodipine Besylate], Poison Kendy, Adhesive Tape (Rosins), Dust Mites, and Tree And Shrub Pollen MEDICATIONS predniSONE (DELTASONE) 10 mg tablet Take 4 tabs daily for 3 days, then 2 tabs daily for 3 days, then 1 tab daily for 3 days with food. estradiol (ESTRACE) 0.01 % (0.1 mg/gram) vaginal cream APPLY 1 GRAM OF CREAM TO LOWER VAGINA AND A PEA SIZED AMOUNT TO THE OPENING OF THE VAGINA 3 TIMES WEEKLY losartan (COZAAR) 50 mg tablet Take 1 tablet by mouth two times a day. spironolactone (ALDACTONE) 25 mg tablet Take 1 tablet by mouth once daily. terbinafine HCl (LAMISIL AT) 1 % cream Apply to affected area two times a day. zolpidem (AMBIEN) 10 mg Use half to one tablet as needed. omeprazole (PRILOSEC) 40 mg capsule Take 1 capsule by mouth once daily. ketoconazole (NIZORAL) 2 % cream Apply 1 application to affected area once daily. Apply to rash and surrounding area meloxicam (MOBIC) 15 mg tablet Take 1 tablet by mouth once daily. loperamide HCl (IMODIUM) 2 mg tab Take 1 tablet by mouth as needed. acetaminophen (TYLENOL ARTHRITIS PAIN) 650 mg CR tablet Take 1 tablet by mouth every 8 hours as needed. clobetasol (TEMOVATE) 0.05 % ointment Apply half of one oghtfu-gtv-qgxo to cover the affected area two days a week. Ferrous Gluconate 225 mg (27 mg iron) tab Take 1 tablet by mouth once daily. MAGNESIUM ORAL Take by mouth. multivitamin with minerals (HAIR,SKIN AND NAILS ORAL) Take by mouth. COMPOUNDED PRESCRIPTION Exercise 30 minutes daily 5 [...] Never Smokeless tobacco: Never Vaping Use Vaping status: Never Used Substance Use Topics Alcohol use: No Drug use: No PHYSICAL EXAM BP 142/ (more content not included)... Normal [facility] XR KNEE 4V AP/PA BOTH+LAT/ME R LTon 05-06-2025 XR KNEE 4V AP/PA BOTH+LAT/CORDELL LT * * *Final Report* * * DATE OF EXAM: May 06 2025 3:00PM WOX 5202 - XR KNEE 4V AP/PA BOTH+LAT/CORDELL LT / PROCEDURE REASON: Acute pain of left knee * * * * Physician Interpretation * * * * PROCEDURE: Left knee INDICATION: Acute pain of left knee .Pt. states Lt knee pain, inside, for 2 weeks. No injury. TECHNIQUE: XR KNEE 4V AP/PA BOTH+LAT/CORDELL LT COMPARISON: 06/26/2023 FINDINGS: Advanced tricompartment osteoarthrosis, nearly kjkd-om-qzma in the medial compartment. No fracture or dislocation. No joint effusion. Mild interval progression. Advanced tricompartment osteoarthrosis in the right knee. IMPRESSION: Advanced osteoarthrosis Insurance Loss Adjuster: RENETTA Transcribe Date/Time: May 10 2025 7:31A Dictated by : JAN MORALES MD This examination was interpreted and the report reviewed and electronically signed by: JAN MORALES MD on May 10 2025 7:32AM EST [id number] Normal [facility] Basic metabolic 2000 panelon 04-27-2025 Anion gap [Moles/Vol] 13 mmol/L Normal 8-15 [facility] Comment on above: Order Comment: Speci men Type: BLOOD SPECIMENOrdering Facility: [facility] Address: [address] [place] [address] Performed By: #### 2 4321-2 ####[facility] LABCLIA [id number] [place] [address] [place] Calcium [Mass/Vol] 9.4 mg/dL Normal 8.5-10.2 [facility] Comment on above: Order Comment: Speci men Type: BLOOD SPECIMENOrdering Facility: [facility] Address: [address] [place] [address] Performed By: #### 2 4321-2 ####[facility] LABCLIA [id number] [place] [id number] [place] Chloride [Moles/Vol] 103 mmol/L Normal 98-107 [facility] Comment on above: Order Comment: Speci men Type: BLOOD SPECIMENOrdering Facility: [facility] Address: [address] [place] [address] Performed By: #### 2 4321-2 ####[facility] LABCLIA [id number] [place] [address] [place] CO2 [Moles/Vol] 25 mmol/L Normal 22-30 [facility] Comment on above: Order Comment: Speci men Type: BLOOD SPECIMENOrdering Facility: [facility] Address: [address] [place] [address] Performed By: #### 2 4321-2 ####[facility] LABIA [id number] [address] [place] OF [facility] Creatinine [Mass/Vol] 0.75 mg/dL Normal 0.58-0.96 [facility] Comment on above: Order Comment: Speci men Type: BLOOD SPECIMENOrdering Facility: [facility] Address: [address] [place] [address] Performed By: #### 2 4321-2 ####[facility] LABIA [id number] [address] OF [facility] Creatinine and Glomerular filtration rate.predicted panel (S/P/Bld) 84 mL/min/1.73m??? Normal >=60 [facility] Comment on above: Order Comment: Speci men Type: BLOOD SPECIMENOrdering Facility: [facility] Address: [address] [place] [address] Result Comment: Mindy mated Glomerular Filtration Rate (eGFR) is calculated using the 2020 CKD-EPI creatinine equation. This equation utilizes serum creatinine, sex, and age as parameters. The creatinine assay has traceable calibration to isotope dilution-mass spectrometry. Refer to KDIGO guidelines for clinical interpretation. In patients with unstable renal function, e.g. those with acute kidney injury, the eGFR may not accurately reflect actual GFR. Performed By: #### 2 4321-2 ####[facility] LABCLIA [id number] [address] [address] [place] Glucose [Mass/Vol] 93 mg/dL Normal 74-99 [facility] Comment on above: Order Comment: Speci men Type: BLOOD SPECIMENOrdering Facility: [facility] Address: [address] [place] [address] Result Comment: The [place] [employer] (ADA) provides guidance for cutoff values for fasting glucose and random glucose. The ADA defines fasting as no caloric intake for at least 8 hours. Fasting plasma glucose results between 100 to 125 mg/dL indicate increased risk for diabetes (prediabetes). Fasting plasma glucose results greater than or equal to 126 mg/dL meet the criteria for diagnosis of diabetes. In the absence of unequivocal hyperglycemia, results should be confirmed by repeat testing. In a patient with classic symptoms of hyperglycemia or hyperglycemic crisis, random plasma glucose results greater than or equal to 200 mg/dL meet the criteria for diagnosis of diabetes. Reference: Standards of Medical Care in Diabetes 2016, [place] [employer]. Diabetes Care. 2016.39(Suppl 1). Performed By: #### 2 4321-2 ####[facility] LABIA [id number] [place] [id number] [place] Potassium [Moles/Vol] 4.6 mmol/L Normal 3.7-5.1 [facility] Comment on above: Order Comment: Speci men Type: BLOOD SPECIMENOrdering Facility: [facility] Address: [address] [place] [address] Performed By: #### 2 4321-2 ####[facility] LABIA [id number] [place] [address] [place] Sodium [Moles/Vol] 141 mmol/L Normal 136-144 [facility] Comment on above: Order Comment: Speci men Type: BLOOD SPECIMENOrdering Facility: [facility] Address: [address] [place], [place] [address] Performed By: #### 2 4321-2 ####[facility] LABIA [id number] [place] [id number] [place] Urea nitrogen [Mass/Vol] 17 mg/dL Normal 7-21 [facility] Comment on above: Order Comment: Speci men Type: BLOOD SPECIMENOrdering Facility: [facility] Address: [address] [place] [id number] Performed By: #### 2 4321-2 ####[facility] LABCLIA [id number] [place] [id number] [place] [address] CNOVon 03-24-2025 CNOV Office Visit (INTMWS ) JESSICA WORRELL ([id number]) 1950 [facility] Date Time Provider Department 03/24/25 10:20 AM DENEEN GARCIA INTMWS During your visit today, we recorded the following information about you: Pulse Respiration Blood pressure Weight 52/minute 16/minute 136/94 106.3 kg Deneen Garcia MD 03/24/2025 11:33 AM Signed Reason for Visit Follow up Hypertension BARAK Kang is a 74-year-old female with a history of HTN, GERD, and hiatal hernia, presenting for follow-up. Pearl reports difficulty losing weight and concerns about her current weight of 233 lbs. She attributes her weight gain to a lack of exercise over the past year due to various reasons, including a humerus fracture, multiple trips, a viral illness, and other personal commitments. She expresses a desire to return to the gym and establish a regular exercise routine. She mentions a recent 3-week vacation during which her weight increased to 241 lbs, but she has since lost the gained weight. She reports losing 7 lbs in the past month through intentional efforts but acknowledges not consistently working on weight loss. She also reports nocturia, waking up multiple times at night to urinate, and expresses concerns about incontinence, believing that weight loss might alleviate this issue. She denies snoring and sleep apnea and occasionally takes zolpidem to aid sleep, having used 1.5 doses in the past month. She denies regular use of compression socks but mentions experiencing dizziness upon getting out of bed, accompanied by slight nausea and a headache about 1.5-2 weeks ago. She questions if these symptoms could be related to high blood pressure. She reports using a [employer] brand blood pressure cuff, which has given inconsistent readings, including 74/28 and 178 systolic. She is currently taking losartan BID and has a history of adverse reactions to other antihypertensive medications, including a cough and significant swelling. She is due for a colonoscopy and inquires about a referral. She has a history of GERD and a hiatal hernia, for which she has been taking omeprazole for over 25 years. She mentions a previous endoscopy that identified a Schatzki ring, which was treated. She takes an iron supplement daily and denies anemia. She also reports using ketoconazole for a fungal infection on her neck but finds oudc-pbk-kwwiixw antifungal treatments more effective. Social History Tobacco Use Smoking status: Never Smokeless tobacco: Never Vaping Use Vaping status: Never Used Substance Use Topics Alcohol use: No Drug use: No Past medical history, appointments, medications, allergies reviewed. Pertinent Lab/Diagnostic Studies are reviewed and discussed today Current Outpatient Medications: zolpidem (AMBIEN) 10 mg omeprazole (PRILOSEC) 40 mg capsule ketoconazole (NIZORAL) 2 % cream meloxicam (MOBIC) 15 mg tablet estradiol (ESTRACE) 0.01 % (0.1 mg/gram) vaginal cream loperamide HCl (IMODIUM) 2 mg tab acetaminophen (TYLENOL ARTHRITIS PAIN) 650 mg CR tablet clobetasol (TEMOVATE) 0.05 % ointment MAGNESIUM ORAL multivitamin with minerals (HAIR,SKIN AND NAILS ORAL) COMPOUNDED PRESCRIPTION multivitamin tablet loratadine(CLARITIN 10 MG TAB) losartan (COZAAR) 50 mg tablet spironolactone (ALDACTONE) 25 mg tablet terbinafine HCl (LAMISIL AT) 1 % cream Ferrous Gluconate 225 mg (27 mg iron) tab Health Maintenance BP Controlled (<130/80) DTaP,Tdap,Td Vaccine(2 - Td or Tdap) Advance Directive Discussion Covid-19 Vaccine( season)@ Review Of Systems Constitutional: (+) weight gain Head: (+) headache Respiratory: (+) snoring Gastrointestinal: (+) nausea Genitourinary: (+) nocturia, (+) urinary incontinence Skin: (+) neck rash Neurological: (+) dizziness Physical Exam BP 136/94 Pulse (!) 52 Resp 16 Wt 106.3 kg (234 lb 6.4 oz) BMI 41.52 kg/m? GENERAL: NAD, alert and oriented SKIN: Unremarkable, no rash or skin lesions. HEAD: Normocephalic EYES: PERRLA, EOMI, conjunctiva clear EARS: External ears normal, canals clear, TM's normal. NOSE/SINUSES: Nares normal. Septum midline. OROPHARYNX: Lips, mucosa, and tongue normal, good dentition. No oral lesions noted. NECK: Supple, no lymphadenopathy, normal thyroid, no carotid bruits. LUNGS: Clear to auscultation bilaterally, no wheezes/rhonchi/rales. HEART: Regular rate and rhythm, no murmurs. No ectopy. EXTREMITIES: Normal, no deformities, no skin discoloration, no edema. NEURO: Awake, alert and oriented x3, cranial nerves II-XII grossly intact, normal gait, no involuntary motions. Labs: Imaging: Tests: - (2 years ago) Esophagogastroduodenos copy: Schatzki ring identified and dilated. Large hiatal hernia noted. - Sleep study: Negative for sleep apnea. Assessment and Plan 1. Gastroesophageal reflux disease without esophagitis (K21.9) (more content not included)... Normal [facility] CNOVon 11-26-2024 CNOV Office Visit (INTMWS ) JESSICA WORRELL ([id number]) 1950 F [facility] Date Time Provider Department 11/26/24 1:40 PM DENEEN GARCIA INTMWS During your visit today, we recorded the following information about you: Pulse Respiration Blood pressure Weight 93/minute 16/minute 142/86 105.9 kg Deneen Garcia MD 11/26/2024 3:01 PM Addendum Reason for Visit Patient presents with: F/U 6 Month Jessica Worrell is a 73 year old female who presents here today for Above Complaints.. Health Maintenance BP Controlled (<130/80) RSV Vaccine(1 - 1-dose 60+ series) Advance Directive Discussion Covid-19 Vaccine( season) Mammogram Screening HPI This is a 73-year-old female with a past medical history of obesity, hypertension, osteoarthritis, reflux, GERD. She has white coat hypertension, she needs a repeat bp every time , would benefit from ambulatory bp monitoring. She has gained around 13 pounds of weight. She as been working at eating better and trying to lose weight. Stressed about the current state of affairs, it makes her blood pressure high. The ambien has been helping her sleep when she has a hard time sleeping. Taken it occasionally, 30 pills last 7 months for her She has a rash on the neck recurring, it is itching, and red, it has resolved when she sued nystatin in the past, it got better, so she wants to use. No problem-specific Assessment AND Plan notes found for this encounter. PAST MEDICAL HISTORY Diagnosis Date Acute gastritis without mention of hemorrhage Allergic rhinitis, cause unspecified BMI 40.0-44.9, adult ([facility]) 08/02/2013 Cataract Corneal abrasion 20 y ago [...] Never Smokeless tobacco: Never Vaping Use Vaping status: Never Used Substance Use Topics Alcohol use: No Drug use: No Past medical history, appointments, medications, allergies reviewed. Pertinent Lab/Diagnostic Studies are reviewed and discussed today Current Outpatient Medications: meloxicam (MOBIC) 15 mg tablet losartan (COZAAR) 50 mg tablet zolpidem (AMBIEN) 10 mg omeprazole (PRILOSEC) 40 mg capsule estradiol (ESTRACE) 0.01 % (0.1 mg/gram) vaginal cream loperamide HCl (IMODIUM) 2 mg tab acetaminophen (TYLENOL ARTHRITIS PAIN) 650 mg CR tablet clobetasol (TEMOVATE) 0.05 % ointment MAGNESIUM ORAL multivitamin with minerals (HAIR,SKIN AND NAILS ORAL) COMPOUNDED PRESCRIPTION multivitamin tablet loratadine(CLARITIN 10 MG TAB) ketoconazole (NIZORAL) 2 % cream Ferrous Gluconate 225 mg (27 mg iron) tab Review of Systems CONSTITUTIONAL: No fevers, chills [...] or numbness of concern. Physical Exam BP 142/86 Pulse 93 Resp 16 Wt 105.9 kg (233 lb 6.4 oz) SpO2 98% BMI 41.34 kg/m? General appearance: Well appearing, alert, in no acute distress, well nourished. Skin: red patchy small areas on the courtney, with little scales Head: Normocephalic, no masses, lesions, tenderness or abnormalities Eyes: Anicteric sclera. Pupils are equally round and reactive to light. Extraocular movements are intact. Lungs: Lungs clear to auscultation. No wheezing, rhonchi, rales Heart: RRR without murmur, gallop, or rubs. Extremities: No deformities, edema, skin discoloration, clubbing or cyanosis. Good capillary refill. ASSESSMENT/PLAN: 1. Essential hypertension - ICD9: 401.9, ICD10: I10 (primary diagnosis) - uncontrolled, weight ga (more content not included)... Normal [facility] 25(OH)D3 SerPl-mCncon 2024 25-hydroxyvitamin D3 [Mass/Vol] 54.1 ng/mL Normal 31.0-80.0 [facility] Comment on above: Order Comment: Speci men Type: BLOOD SPECIMENOrdering Facility: [facility] Address: [address] [place] [address] Performed By: #### 1 989-3 ####[facility] LABCLIA [id number] [place] [address] [place] CBC W Auto Differential pane l (Bld)on 11-19-2024 Basophils (Bld) [#/Vol] 0.06 10*3/uL Normal <0.11 [facility] Comment on above: Order Comment: Speci men Type: BLOOD SPECIMENOrdering Facility: [facility] Address: [address] [place] [address] Performed By: #### 5 7021-8 ####[facility] LABCLIA [id number] [place] [address] [place] Basophils/100 WBC (Bld) 0.7 % Normal [facility] Comment on above: Order Comment: Speci men Type: BLOOD SPECIMENOrdering Facility: [facility] Address: [address] [place] [address] Performed By: #### 5 7021-8 ####[facility] LABCLIA [id number] [place] [address] [place] Differential cell count method Nom (Bld) Auto Normal [facility] Comment on above: Order Comment: Speci men Type: BLOOD SPECIMENOrdering Facility: [facility] Address: [address] [place] [address] Performed By: #### 5 7021-8 ####[facility] LABCLIA [id number] [place] [address] [place] Eosinophils (Bld) [#/Vol] 0.11 10*3/uL Normal <0.46 [facility] Comment on above: Order Comment: Speci men Type: BLOOD SPECIMENOrdering Facility: [facility] Address: [address] [place] [address] Performed By: #### 5 7021-8 ####[facility] LABCLIA [id number] [place] [address] [place] Eosinophils/100 WBC (Bld) 1.2 % Normal [facility] Comment on above: Order Comment: Speci men Type: BLOOD SPECIMENOrdering Facility: [facility] Address: [address] [place] [address] Performed By: #### 5 7021-8 ####[facility] LABIA [id number] [place] [address] [place] Erythrocyte distribution width (RBC) [Ratio] 13.3 % Normal 11.5-15.0 [facility] Comment on above: Order Comment: Speci men Type: BLOOD SPECIMENOrdering Facility: [facility] Address: [address] [place] [address] Performed By: #### 5 7021-8 ####[facility] LABCLIA [id number] [place] [address] [place] Hematocrit (Bld) [Volume fraction] 43.6 % Normal 36.0-46.0 [facility] Comment on above: Order Comment: Speci men Type: BLOOD SPECIMENOrdering Facility: [facility] Address: [address] [place] [address] Performed By: #### 5 7021-8 ####[facility] LABCLIA [id number] [place] [address] [place] Hemoglobin (Bld) [Mass/Vol] 13.5 g/dL Normal 11.5-15.5 [facility] Comment on above: Order Comment: Speci men Type: BLOOD SPECIMENOrdering Facility: [facility] Address: [address] [place] [address] Performed By: #### 5 7021-8 ####[facility] LABCLIA [id number] [place] [address] [place] Immature granulocytes (Bld) [#/Vol] 0.03 10*3/uL Normal <0.10 [facility] Comment on above: Order Comment: Speci men Type: BLOOD SPECIMENOrdering Facility: [facility] Address: [address] [place] [address] Performed By: #### 5 7021-8 ####[facility] LABCLIA [id number] [place] [address] [place] Immature granulocytes/100 WBC (Bld) 0.3 % Normal [facility] Comment on above: Order Comment: Speci men Type: BLOOD SPECIMENOrdering Facility: [facility] Address: [address] [place] [address] Performed By: #### 5 7021-8 ####[facility] LABCLIA [id number] [place] [address] [place] Lymphocytes (Bld) [#/Vol] 1.93 10*3/uL Normal 1.00-4.00 [facility] Comment on above: Order Comment: Speci men Type: BLOOD SPECIMENOrdering Facility: [facility] Address: [address] [place] [address] Performed By: #### 5 7021-8 ####[facility] LABCLIA [id number] [place] [address] [place] Lymphocytes/100 WBC (Bld) 21.9 % Normal [facility] Comment on above: Order Comment: Speci men Type: BLOOD SPECIMENOrdering Facility: [facility] Address: [address] [place] [address] Performed By: #### 5 7021-8 ####[facility] LABIA [id number] [place] [address] [place] MCH (RBC) [Entitic mass] 28.8 pg Normal 26.0-34.0 [facility] Comment on above: Order Comment: Speci men Type: BLOOD SPECIMENOrdering Facility: [facility] Address: [address] [place] [address] Performed By: #### 5 7021-8 ####[facility] LABIA [id number] [place] [address] [place] MCHC (RBC) [Mass/Vol] 31.0 g/dL Normal 30.5-36.0 [facility] Comment on above: Order Comment: Speci men Type: BLOOD SPECIMENOrdering Facility: [facility] Address: [address] [place] [address] Performed By: #### 5 7021-8 ####[facility] [id number] [place] [address] [place] MCV (RBC) [Entitic vol] 93.0 fL Normal 80.0-100.0 [facility] Comment on above: Order Comment: Speci men Type: BLOOD SPECIMENOrdering Facility: [facility] Address: [address] [place] [address] Performed By: #### 5 7021-8 ####[facility] [id number] [place] [address] [place] Monocytes (Bld) [#/Vol] 0.81 10*3/uL Normal <0.87 [facility] Comment on above: Order Comment: Speci men Type: BLOOD SPECIMENOrdering Facility: [facility] Address: [address] [place] [address] Performed By: #### 5 7021-8 ####[facility] [id number] [place] [address] [place] Monocytes/100 WBC (Bld) 9.2 % Normal [facility] Comment on above: Order Comment: Speci men Type: BLOOD SPECIMENOrdering Facility: [facility] Address: [address] [place] [address] Performed By: #### 5 7021-8 ####[facility] LABCLIA [id number] [address] [address] [place] Neutrophils (Bld) [#/Vol] 5.87 10*3/uL Normal 1.45-7.50 [facility] Comment on above: Order Comment: Speci men Type: BLOOD SPECIMENOrdering Facility: [facility] Address: [address] [place] [address] Performed By: #### 5 7021-8 ####[facility] LABCLIA [id number] [place] [address] [place] Neutrophils/100 WBC (Bld) 66.7 % Normal [facility] Comment on above: Order Comment: Speci men Type: BLOOD SPECIMENOrdering Facility: [facility] Address: [address] [place] [address] Performed By: #### 5 7021-8 ####[facility] LABCLIA [id number] [place] [address] [place] Nucleated RBC (Bld) [#/Vol] 10*3/uL Normal <0.01 [facility] Comment on above: Order Comment: Speci men Type: BLOOD SPECIMENOrdering Facility: [facility] Address: [address] [place] [address] Performed By: #### 5 7021-8 ####[facility] LABCLIA [id number] [place] [address] [place] Nucleated RBC/100 WBC (Bld) [Ratio] 0.0 /100 WBC Normal [facility] Comment on above: Order Comment: Speci men Type: BLOOD SPECIMENOrdering Facility: [facility] Address: [address] [place] [address] Performed By: #### 5 7021-8 ####[facility] LABCLIA [id number] [address] [address] [place] Platelet mean volume (Bld) [Entitic vol] 11.4 fL Normal 9.0-12.7 [facility] Comment on above: Order Comment: Speci men Type: BLOOD SPECIMENOrdering Facility: [facility] Address: [address] [place] [address] Performed By: #### 5 7021-8 ####[facility] LABCLIA [id number] [place] [address] [place] Platelets (Bld) [#/Vol] 306 10*3/uL Normal 150-400 [facility] Comment on above: Order Comment: Speci men Type: BLOOD SPECIMENOrdering Facility: [facility] Address: [address] [place] [address] Performed By: #### 5 7021-8 ####[facility] LABIA [id number] [place] [address] [place] RBC (Bld) [#/Vol] 4.69 10*6/uL Normal 3.90-5.20 [facility] Comment on above: Order Comment: Speci men Type: BLOOD SPECIMENOrdering Facility: [facility] Address: [address] [place] [address] Performed By: #### 5 7021-8 ####[facility] LABIA [id number] [place] [id number] [place] WBC (Bld) [#/Vol] 8.81 10*3/uL Normal 3.70-11.00 [facility] Comment on above: Order Comment: Speci men Type: BLOOD SPECIMENOrdering Facility: [facility] Address: [address] [place] [address] Performed By: #### 5 7021-8 ####[facility] LABCLIA [id number] [address] [address] [place] Comprehensive metabolic 2000 panelon 11-19-2024 Albumin [Mass/Vol] 4.4 g/dL Normal 3.9-4.9 [facility] Comment on above: Order Comment: Speci men Type: BLOOD SPECIMENOrdering Facility: [facility] Address: [address] [place] [address] Performed By: #### 2 4323-8, 2132-06, 47301-5 ####[facility] LABCLIA [id number] [place] [id number] [place] ALP [Catalytic activity/Vol] 102 U/L Normal 34-123 [facility] Comment on above: Order Comment: Speci men Type: BLOOD SPECIMENOrdering Facility: [facility] Address: [address] [place] [address] Performed By: #### 2 4323-8, 2132-06, 20312-1 ####[facility] LABCLIA [id number] [place] [id number] [place] ALT [Catalytic activity/Vol] 16 U/L Normal 7-38 [facility] Comment on above: Order Comment: Speci men Type: BLOOD SPECIMENOrdering Facility: [facility] Address: [address] [place] [address] Performed By: #### 2 4323-8, 2132-06, 95535-9 ####[facility] LABCLIA [id number] [place] [id number] [place] Anion gap [Moles/Vol] 12 mmol/L Normal 8-15 [facility] Comment on above: Order Comment: Speci men Type: BLOOD SPECIMENOrdering Facility: [facility] Address: [address] [place] [address] Performed By: #### 2 4323-8, 2132-06, 23044-0 ####[facility] LABCLIA [id number] [address] [place] [address] [place] AST [Catalytic activity/Vol] 19 U/L Normal 13-35 [facility] Comment on above: Order Comment: Speci men Type: BLOOD SPECIMENOrdering Facility: [facility] Address: [address] [place] [address] Performed By: #### 2 4323-8, 2132-06, ####[facility] LABCLIA [id number] [place] [address] [place] Bilirubin [Mass/Vol] 0.3 mg/dL Normal 0.2-1.3 [facility] Comment on above: Order Comment: Speci men Type: BLOOD SPECIMENOrdering Facility: [facility] Address: [address] [place] [address] Performed By: #### 2 4323-8, 2132-06, ####[facility] LABCLIA [id number] [place] [address] [place] Calcium [Mass/Vol] 9.5 mg/dL Normal 8.5-10.2 [facility] Comment on above: Order Comment: Speci men Type: BLOOD SPECIMENOrdering Facility: [facility] Address: [address] [place] [address] Performed By: #### 2 4323-8, 2132-06, ####[facility] LABCLIA [id number] [place] [address] [place] Chloride [Moles/Vol] 103 mmol/L Normal 98-107 [facility] Comment on above: Order Comment: Speci men Type: BLOOD SPECIMENOrdering Facility: [facility] Address: [address] [place] [address] Performed By: #### 2 4323-8, 2132-06, ####[facility] LABCLIA [id number] [address] [address] [place] CO2 [Moles/Vol] 27 mmol/L Normal 22-30 [facility] Comment on above: Order Comment: Speci men Type: BLOOD SPECIMENOrdering Facility: [facility] Address: [address] [place] [address] Performed By: #### 2 4323-8, 2132-06, ####[facility] LABCLIA [id number] [facility] [address] [address] [place] Creatinine [Mass/Vol] 0.63 mg/dL Normal 0.58-0.96 [facility] Comment on above: Order Comment: Speci men Type: BLOOD SPECIMENOrdering Facility: [facility] Address: [address] [place] [address] Performed By: #### 2 4323-8, 2132-06, ####[facility] LABCLIA [id number] [place] [address] [place] Creatinine and Glomerular filtration rate.predicted panel (S/P/Bld) 94 mL/min/1.73m??? Normal >=60 [facility] Comment on above: Order Comment: Speci men Type: BLOOD SPECIMENOrdering Facility: [facility] Address: [address] [place] [address] Result Comment: Mindy mated Glomerular Filtration Rate (eGFR) is calculated using the 2020 CKD-EPI creatinine equation. This equation utilizes serum creatinine, sex, and age as parameters. The creatinine assay has traceable calibration to isotope dilution-mass spectrometry. Refer to KDIGO guidelines for clinical interpretation. In patients with unstable renal function, e.g. those with acute kidney injury, the eGFR may not accurately reflect actual GFR. Performed By: #### 2 4323-8, 2132-06, ####[facility] LABCLIA [id number] [place] [id number] [place] Glucose [Mass/Vol] 71 mg/dL Low 74-99 [facility] Comment on above: Order Comment: Speci men Type: BLOOD SPECIMENOrdering Facility: [facility] Address: [address] [place] [address] Result Comment: The [place] Diabetes [employer] (ADA) provides guidance for cutoff values for fasting glucose and random glucose. The ADA defines fasting as no caloric intake for at least 8 hours. Fasting plasma glucose results between 100 to 125 mg/dL indicate increased risk for diabetes (prediabetes). Fasting plasma glucose results greater than or equal to 126 mg/dL meet the criteria for diagnosis of diabetes. In the absence of unequivocal hyperglycemia, results should be confirmed by repeat testing. In a patient with classic symptoms of hyperglycemia or hyperglycemic crisis, random plasma glucose results greater than or equal to 200 mg/dL meet the criteria for diagnosis of diabetes. Reference: Standards of Medical Care in Diabetes 2016, [place] Diabetes Association. Diabetes Care. 2016.39(Suppl 1). Performed By: #### 2 4323-8, 2132-06, ####[facility] LABCLIA [id number] [place] [address] [place] Potassium [Moles/Vol] 3.8 mmol/L Normal 3.7-5.1 [facility] Comment on above: Order Comment: Speci men Type: BLOOD SPECIMENOrdering Facility: [facility] Address: [address] [place] [address] Performed By: #### 2 4323-8, 2132-06, ####[facility] LABCLIA [id number] [place] [address] [place] Protein [Mass/Vol] 7.5 g/dL Normal 6.3-8.0 [facility] Comment on above: Order Comment: Speci men Type: BLOOD SPECIMENOrdering Facility: [facility] Address: [address] [place] [address] Performed By: #### 2 4323-8, 2132-06, ####[facility] LABCLIA [id number] [place] [address] [place] Sodium [Moles/Vol] 142 mmol/L Normal 136-144 [facility] Comment on above: Order Comment: Speci men Type: BLOOD SPECIMENOrdering Facility: [facility] Address: [address] [place] [id number] Performed By: #### 2 4323-8, 2132-06, ####[facility] LABCLIA [id number] [address] [address] [place] Urea nitrogen [Mass/Vol] 13 mg/dL Normal 7-21 [facility] Comment on above: Order Comment: Speci men Type: BLOOD SPECIMENOrdering Facility: [facility] Address: [address] [place] [address] Performed By: #### 2 432-8, 2132-06, ####[facility] LABCLIA [id number] [place] [address] [place] Lipid 1996 panelon 5 Cholesterol [Mass/Vol] 199 mg/dL Normal <200 [facility] Comment on above: Order Comment: Speci men Type: BLOOD SPECIMENOrdering Facility: [facility] Address: [address] [place] [address] Result Comment: <200 mg/dL, Desirable 200-239 mg/dL, Borderline high >239 mg/dL, High Performed By: #### 2 432-8, 2132-06, ####[facility] LABCLIA [id number] [place] [address] [place] Cholesterol in HDL [Mass/Vol] 49 mg/dL Normal >39 [facility] Comment on above: Order Comment: Speci men Type: BLOOD SPECIMENOrdering Facility: [facility] Address: [address] [place] [id number] Result Comment: 40-5 9 mg/dL, Acceptable >59 mg/dL, High: Negative risk factor for coronary heart disease <40 mg/dL, Low: Positive risk factor for coronary heart disease Performed By: #### 2 4323-8, 2132-06, ####[facility] LABCLIA [id number] [address] [address] [place] Cholesterol in LDL [Mass/Vol] 110 mg/dL High <100 [facility] Comment on above: Order Comment: Speci men Type: BLOOD SPECIMENOrdering Facility: [facility] Address: [address] [place] [address] Result Comment: <100 mg/dL, Optimal 100-129 mg/dL, Near optimal/above optimal 130-159 mg/dL, Borderline high 160-189 mg/dL, High >189 mg/dL, Very high Secondary prevention optimal LDL Cholesterol levels are recommended to be < 70 mg/dL Performed By: #### 2 4323-8, 2132-06, 98888-5 ####[facility] LABCLIA [id number] [address] [place] Cholesterol in LDL/Cholesterol in HDL [Mass ratio] 2.24 {ratio} Normal <2.54 [facility] Comment on above: Order Comment: Speci men Type: BLOOD SPECIMENOrdering Facility: [facility] Address: [address] [place] [address] Result Comment: Refe rence: 1. National Cholesterol Education Program ATP III Guideline At-A-Glance Quick Desk Reference: National Heart, Lung, and Blood [place]. National Institutes of Health. 2001: NIH Publication No. 01-3305. 2. An International Atherosclerosis Society position paper: global recommendations for the management of dyslipidemia: executive summary, Atherosclerosis. 2014: 232(2):410-413. Performed By: #### 2 4323-8, 2132-06, 40213-4 ####[facility] LABCLIA [id number] [address] [place] Cholesterol in VLDL [Mass/Vol] 40 mg/dL High <30 [facility] Comment on above: Order Comment: Speci men Type: BLOOD SPECIMENOrdering Facility: [facility] Address: [address] [place] [address] Performed By: #### 2 4323-8, 2132-06, 09881-5 ####[facility] LABCLIA [id number] [place] [address] [place] Cholesterol non HDL [Mass/Vol] 150 mg/dL High <130 [facility] Comment on above: Order Comment: Speci men Type: BLOOD SPECIMENOrdering Facility: [facility] Address: [address] [place] [address] Result Comment: <130 mg/dL, Optimal 130-159 mg/dL, Near optimal/above optimal 160-189 mg/dL, Borderline high 190-219 mg/dL, High >219 mg/dL, Very high Secondary prevention optimal non HDL Cholesterol levels are recommended to be <100 mg/dL Performed By: #### 2 4323-8, 2132-06, 93417-7 ####[facility] LABCLIA [id number] [place] [address] [place] Cholesterol.total/Cho lesterol in HDL [Mass ratio] 4.06 {ratio} Normal <5.10 [facility] Comment on above: Order Comment: Speci men Type: BLOOD SPECIMENOrdering Facility: [facility] Address: [address] [place] [address] Performed By: #### 2 4323-8, 2132-06, 76905-6 ####[facility] LABCLIA [id number] [place] [address] [place] FASTING TIME 12 hrs Normal [facility] Comment on above: Order Comment: Speci men Type: BLOOD SPECIMENOrdering Facility: [facility] Address: [address] [place] [address] Performed By: #### 2 4323-8, 2132-06, 68000-5 ####[facility] LABCLIA [id number] [place] [address] [place] Triglyceride [Mass/Vol] 198 mg/dL High <150 [facility] Comment on above: Order Comment: Speci men Type: BLOOD SPECIMENOrdering Facility: [facility] Address: [address] [place] [address] Result Comment: <150 mg/dL, Normal 150-199 mg/dL, Borderline high 200-499 mg/dL, High >499 mg/dL, Very high Performed By: #### 2 4323-8, 2132-9, 19710-3 ####[facility] LABCLIA [id number] [place] [id number] [place] BHARGAVI SCREENINGon 11-19-2024 BHARGAVI SCREENING * * *Final Report* * * DATE OF EXAM: Nov 19 2024 12:43PM WRW 0581 - [facility] SCREENING / PROCEDURE REASON: Encounter for screening mammogram for breast cancer * * * * Physician Interpretation * * * * RESULT: [facility] [address] [place] [address] #[id number] - [facility] SCREENING HISTORY: 73 year-old patient seen for screening and is asymptomatic in both breasts. Patient states no personal history of breast cancer. Patient states no personal history of other cancers. COMPARISON STUDIES: The present examination has been compared to prior imaging studies dated 11/25/2017 (mammogram), 01/13/2019 (mammogram), 01/27/2019 (mammogram), 01/27/2019 (ultrasound), 02/19/2021 (mammogram) and 04/14/2023 (mammogram). MAMMOGRAM TECHNIQUE: The study was acquired using full field digital technology and interpreted from soft copy. MAMMOGRAM FINDINGS: The breasts are almost entirely fatty. No suspicious masses, calcifications or other abnormalities are seen in either breast. There are no significant interval changes. IMPRESSION: There is no mammographic evidence of malignancy in either breast. Routine screening mammogram is recommended. Annual mammogram will be due in 1 year. BI-RADS Category 1: Negative RISK: Based on the Tyrer-Cuzick (TC) risk assessment model, this patient has a 3.4% lifetime risk of developing breast cancer, meaning they are at average risk for developing breast cancer. However, this is only an estimate based on available history provided on the patient's questionnaire. We encourage all patients to talk with their providers about these results, further recommendations for managing breast health, and appropriate supplemental screening options if the patient has dense breast tissue. Interpreting Radiologist: Natalie Radha, M.D. Electronically signed on: 11/22/2024 Insurance Loss Adjuster: MARINA Transcribe Date/Time: Nov 19 2024 12:34P Dictated by: NATALIE MELGOZA MD This examination was interpreted and the report reviewed and electronically signed by: NATALIE MELGOZA MD on Nov 22 2024 7:57PM EST [id number] Normal [facility] Vit B12 SerPl-mCncon 025 Cobalamin (Vitamin B12) [Mass/Vol] 693 pg/mL Normal 232-1245 [facility] Comment on above: Order Comment: Speci men Type: BLOOD SPECIMENOrdering Facility: [facility] Address: [address] [place] [address] Performed By: #### 2 4323-8, 2132-9, 02387-1 ####[facility] LABCLIA [id number] [address] [place] [facility] US Head and neck soft tissue on 05-13-2024 IMPRESSION: No sonographic evidence of discrete mass, fluid collection or pathologic lymphadenopathy in the imaged soft tissues of the LEFT lateral neck. Several (short axis diameter <10 mm) nonenlarged LEFT lateral neck lymph nodes. Insurance Loss Adjuster: RENETTA Transcribe Date/Time: May 13 2024 5:56P Dictated by : PARADISE ANDERSON DO This examination was interpreted and the report reviewed and electronically signed by: PARADISE ANDERSON DO on May 13 2024 5:59PM EST DIVISION OF RADIOLOGY * * *Final Report* * * DATE OF EXAM: May 13 2024 4:17PM [facility] 1052 - US HEAD/NECK SOFT TISSUE OTHER / PROCEDURE REASON: Enlarged lymph node in neck * * * * Physician Interpretation * * * * EXAMINATION: US HEAD/NECK SOFT TISSUE OTHER CLINICAL INFORMATION: 73 years old Female with Enlarged lymph node in neck COMPARISON: None. TECHNIQUE: Targeted grayscale and Doppler sonography of the LEFT lateral neck in the area of concern was performed. Contralateral images of the RIGHT lateral neck were obtained for comparison. Images were obtained and stored in a permanent archive. RESULT/ DIVISION OF RADIOLOGY Provider, Valerio Nascimento - 05/13/2024 * * *Final Report* * * DATE OF EXAM: May 13 2024 4:17PM U 1052 - US HEAD/NECK SOFT TISSUE OTHER / PROCEDURE REASON: Enlarged lymph node in neck * * * * Physician Interpretation * * * * EXAMINATION: US HEAD/NECK SOFT TISSUE OTHER CLINICAL INFORMATION: 73 years old Female with Enlarged lymph node in neck COMPARISON: None. TECHNIQUE: Targeted grayscale and Doppler sonography of the LEFT lateral neck in the area of concern was performed. Contralateral images of the RIGHT lateral neck were obtained for comparison. Images were obtained and stored in a permanent archive. RESULT/ IMPRESSION IMPRESSION: No sonographic evidence of discrete mass, fluid collection or pathologic lymphadenopathy in the imaged soft tissues of the LEFT lateral neck. Several (short axis diameter <10 mm) nonenlarged LEFT lateral neck lymph nodes. Insurance Loss Adjuster: RENETTA Transcribe Date/Time: May 13 2024 5:56P Dictated by : PARADISE ANDERSON DO This examination was interpreted and the report reviewed and electronically signed by: PARADISE ANDERSON DO on May 13 2024 5:59PM EST [facility] Radiology Study observation (narrative) [facility] US Head and neck soft tissue Ordered By: Ccf Provider on 05-13-2024 [facility] Urinalysis complete panel (U )on 04-02-2024 Bacteria LM.HPF (Urine sed) [#/Area] Negative Negative /HPF [facility] Bilirubin Ql (U) Negative Negative [facility] Clarity (Unsp spec) Cloudy Abnormal Clear [facility] Color (U) Dark Yellow Abnormal Yellow [facility] Epithelial cells LM.HPF (Urine sed) [#/Area] Many /HPF [facility] Glucose Test strip (U) [Mass/Vol] Negative Negative [facility] Hemoglobin Ql (U) Negative Negative [facility] Hyaline casts (Urine sed) [#/Area] 4-10 /LPF Abnormal 0 /LPF [facility] Interpretation and review of laboratory results Abnormal [facility] Ketones Ql (U) 1+ Abnormal Negative [facility] Leukocyte esterase Test strip Ql (U) Trace Abnormal Negative [facility] Nitrite Ql (U) Negative Negative [facility] pH (U) 6.0 [pH] NINF - 8.5 [facility] Protein (U) [Mass/Vol] 2+ Abnormal Negative [facility] RBC LM.HPF (Urine sed) [#/Area] 6-10 /HPF Abnormal 0-2 /HPF [facility] Specific gravity (U) [Rel density] 1.028 1.005 - 1.030 [facility] Urobilinogen Ql (U) 1.0 EU/dL 0.2-1.0 EU/dL [facility] WBC LM.HPF (Urine sed) [#/Area] 0-5 /HPF 0-5 /HPF [facility] This test was developed and its performance characteristics determined by [facility]'s [facility] Pathology and Laboratory Medicine [place] ([facility]). It has not been cleared or approved by the FDA. [facility] is regulated under CLIA as qualified to perform high-complexity testing. This test is used for clinical purposes. It should not be regarded as investigational or for research. [facility] Heterophile Ab LA Ql (S)Orde red By: Becky Peter on 04-01-2024 Interpretation and review of laboratory results Normal [facility] MONOTEST, INFECTIOUS MONOOrd ered By: Becky Peter on 04-01-2024 Heterophile Ab LA Ql (S) Negative Negative [facility] Comment on above: Infectious Mononucle osis rapid test is used as an aid in diagnosis of acute infection with Vinayak-Camarena virus (EBV). The antibody levels may occasionally remain elevated up to several months after a primary EBV infection. Final interpretation should be done in conjunction with EBV-specific serology and clinical correlation. False positive results may occasionally be seen with other infectious agents such as Cytomegalovirus, Toxoplasma, and HIV among others as well as non-infectious conditions such as lymphoma. Clinical correlation is required. 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 Insurance Loss Adjuster: PSCB Transcribe Date/Time: Jun 30 2023 8:45A Dictated by : FILOMENA BOGGS MD This examination was interpreted and the report reviewed and electronically signed by: FILOMENA BOGGS MD on Jun 30 2023 8:46AM [facility] DIVISION OF RADIOLOGY * * *Final Report* * * DATE OF EXAM: Jun 26 2023 12:11PM WOX 5618 - XR KNEE 4V AP/PA/LAT/[facility] / PROCEDURE REASON: multiple diagnoses * * * * Physician Interpretation * * * * EXAMINATION: XR KNEE 4V AP/PA/LAT/[facility] HISTORY: Chronic bilateral knee pain. Chronic pain of both knees Chronic pain of both knees Chronic pain of both knees Balance problem. TECHNIQUE: XR KNEE 4V AP/PA/LAT/[facility] Laterality: BILATERAL Number of different views (projections): 4 M: XB_1 COMPARISON: RESULT: Severe narrowing in the medial compartment bilaterally and severe right patellofemoral compartment degenerative changes. Mild degenerative changes elsewhere. No significant joint effusion. No acute fracture or dislocation. There are no bony erosions. DIVISION OF RADIOLOGY Provider, [facility] - 06/30/2023 * * *Final Report* * * DATE OF EXAM: Jun 26 2023 12:11PM WOX 5618 - XR KNEE 4V AP/PA/LAT/[facility] / PROCEDURE REASON: multiple diagnoses * * * * Physician Interpretation * * * * EXAMINATION: XR KNEE 4V AP/PA/LAT/[facility] HISTORY: Chronic bilateral knee pain. Chronic pain of both knees Chronic pain of both knees Chronic pain of both knees Balance problem. TECHNIQUE: XR KNEE 4V AP/PA/LAT/[facility] Laterality: BILATERAL Number of different views (projections): 4 M: XB_1 COMPARISON: RESULT: Severe narrowing in the medial compartment bilaterally and severe right patellofemoral compartment degenerative changes. Mild degenerative changes elsewhere. No significant joint effusion. No acute fracture or dislocation. There are no bony erosions. 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 Insurance Loss Adjuster: PSCB Transcribe Date/Time: Jun 30 2023 8:45A Dictated by : FILOMENA BOGGS MD This examination was interpreted and the report reviewed and electronically signed by: FILOMENA BOGGS MD on Jun 30 2023 8:46AM EST [facility] XR Knee - bilateral 4 ViewsO rdered By: Ccf Provider on 06-30-2023 [facility] TSH BLDon 06-27-2023 TSH Qn 1.620 m[IU]/L 0.270 - 4.200 mIU/L [facility] XR KNEE GENERAL 4V AP BOTH/P A BOTH/LAT/MERC BILATERALon 06-26-2023 [facility] XR Knee - bilateral 4 Viewso n 06-26-2023 Radiology Study observation (narrative) [facility] US FEMALE PELVIS TRANSVAGon 02-08-2022 [facility] Urinalysis complete panel (U )on 01-21-2022 Bilirubin Ql (U) Negative Negative [facility] Clarity (Unsp spec) Clear Clear [facility] Color (U) Yellow Yellow [facility] Epithelial cells LM.HPF (Urine sed) [#/Area] Few [facility] Glucose Test strip (U) [Mass/Vol] Negative Negative [facility] Hemoglobin Ql (U) Negative Negative [facility] Hyaline casts (Urine sed) [#/Area] 1-3 /LPF Abnormal 0 /LPF [facility] Ketones Ql (U) Negative Negative [facility] Leukocyte esterase Test strip Ql (U) Negative Negative [facility] Nitrite Ql (U) Negative Negative [facility] pH (U) 6.0 [pH] 5.0 - 8.0 [facility] Protein (U) [Mass/Vol] 1+ Abnormal Negative [facility] RBC LM.HPF (Urine sed) [#/Area] 0-3 /HPF 0-3 /HPF [facility] Specific gravity (U) [Rel density] 1.024 1.005 - 1.030 [facility] Urobilinogen Ql (U) Negative Negative [facility] WBC LM.HPF (Urine sed) [#/Area] 0-5 /HPF 0-5 /HPF [facility] ANES Nazario 02-16-2019 ANES POST HNO ID: [id number] Author: Wilman Flores Service: Anesthesiology Author Type: Anesthesiologist Type: Anesthesia PostOp Filed: 02/16/2019 1:09 PM Note Text: POST ANESTHESIA EVALUATION NOTE SERVICE DATE: 02/16/2019 SERVICE TIME: 929 : 1950 Vitals: 02/16/19 0706 02/16/19 0835 Temp: 36 ?C (96.8 ?F) 36.1 ?C (97 ?F) 02/16/19 0706 02/16/19 0835 02/16/19 0845 02/16/19 0900 BP: 145/77 105/77 117/78 122/80 02/16/19 0706 02/16/19 0835 02/16/19 0845 02/16/19 0900 Pulse: 85 75 70 75 02/16/19 0706 02/16/19 0835 02/16/19 0845 02/16/19 0900 Resp: 16 10 16 16 02/16/19 0706 02/16/19 0835 02/16/19 0845 02/16/19 0900 SpO2: 96% 97% 99% 100% Validated Vital Signs: yes POST ANES STATUS: No apparent anesthetic complications. The patient is appropriately hydrated with stable respiratory and cardiovascular status. Patient has safe and adequate airway control. The patient has appropriate pain relief and no significant post operative nausea or vomiting. The patient has achieved baseline mental status. Further assessment by Anesthesia Service: None Other Remarks: SIGNATURE: Wilman Flores MD PATIENT NAME: Jessica Worrell DATE: February 16, 2019 TIME: 1:09 PM PAGER/CONTACT #: [phone] [facility] ANES PREOPon 02-16-2019 ANES PREOP HNO ID: [id number] Author: Wilman Flores Service: Anesthesiology Author Type: Anesthesiologist Type: Anesthesia PreOp Filed: 02/16/2019 6:54 AM Note Text: ANESTHESIOLOGY DAY OF SURGERY NOTE SERVICE DATE: 02/16/2019 SERVICE TIME: 6:53 AM : 1950 Procedure(s) (LRB): COLONOSCOPY (N/A) Surgeon(s): Minh Kingsley Estimated body mass index is 36.93 kg/m? as calculated from the following: Height as of 02/10/19: 161.3 cm (5' 3.5). Weight as of 02/10/19: 96.1 kg (211 lb 12.8 oz). Most recent hematocrit and potassium results: Hematocrit 40.3 07/21/2018 Potassium 4.4 01/12/2019 ANES DOS/PREOP NOTE: Vitals: There were no vitals filed for this visit. ACTIVE PROBLEM LIST Depressive Disorder, Not Elsewhere Classified Allergic Rhinitis, Cause Unspecified Esophageal Reflux Iron Deficiency Anemia, Unspecified Acute Gastritis Without Mention of Hemorrhage Osteopenia Primary Localized Osteoarthrosis, Lower Leg Tubular Adenoma of Colon Chronic Diarrhea Bmi 40.0-44.9, Adult (Hcc) Pain in Joint, Shoulder Region Essential Hypertension Glucose Intolerance (Impaired Glucose Tolerance) Impingement Syndrome of Right Shoulder Arthritis of Right Shoulder Region Myopia of Both Eyes PAST MEDICAL HISTORY Diagnosis Date - Acute gastritis without mention of hemorrhage - Allergic rhinitis, cause unspecified - BMI 40.0-44.9, adult ([facility]) 08/02/2013 - Cataract - Corneal abrasion 20 y ago - Depressive disorder, not elsewhere classified - Diverticulosis of colon (without mention of hemorrhage) - Elevated BP 08/04/15 - Esophageal reflux - Iron deficiency anemia, unspecified - Ocular migraine - Osteopenia - PMH - PAST MEDICAL HISTORY OF schatski ring PAST SURGICAL HISTORY Procedure Laterality Date - COLONOSCOP W/ OR W/O BRSH SPEC 10/12/07 - DANDC, DIAG AND/OR THERAPEUTIC 12/18/1985 Dilation AND curettage - EGD W/O BRS SPECIMEN W/BX 10/12/07 - FIX QUAD/HAMSTR MUSC RUPT,PRIMARY 08/09/2010 REPAIR QUADRICEPS performed by EVELINA CARVER at OR - LAPAROSCOPIC CHOLEYCYSTECTOMY 03/30/2013 - REMOVE TONSILS/ADENOIDS,12+ Y/O T/A (over age 12 years) - TOTAL ABDOM HYSTERECTOMY 10/20/2002 Hysterectomy, BETO left ovaries FAMILY HISTORY Problem Relation Age of Onset - Heart Father thyroid cancer at age 39 - other (Rheumatoid arthritis) Mother - other (rheumatoid arthritis) Maternal Aunt - other (rheumatoid arthritis) Maternal Aunt Social History: Social History Tobacco Use - Smoking status: Never Smoker - Smokeless tobacco: Never Used Substance Use Topics - Alcohol use: No - Drug use: No No current facility-administered medications on file prior to encounter. Current Outpatient Medications on File Prior to Encounter: meloxicam (MOBIC) 15 mg tablet Take 1 tablet by mouth once daily. losartan (COZAAR) 25 mg tablet Take 1 tablet by mouth once daily. Ferrous Gluconate 324 mg (36 mg iron) tab Take 1 tablet by mouth once daily. Omeprazole 40 mg capsule Take 1 capsule by mouth once daily. zolpidem (AMBIEN) 5 mg tablet Take 1 tablet by mouth at bedtime as needed for up to 90 days. calcium carbonate-vitamin D3 (CALCIUM 500+D) 500 mg(1,250mg) [...] tablet daily as needed for allergy symptoms. No current facility-administered medications for this encounter. Allergies: ALLERGIES Allergen Reactions - Elliot Inhibitors Cough - Norvasc [Amlodipine* Intolerance Lower extremity swelling - Poison Kendy Other: See Comments Spreads all over body. DOS EXAM: Adequate NPO Status: Yes Anesthetic Risks, Benefits, Alternatives, Personnel and Consent Discussed: Yes Patient agrees to proceed: Yes Previous Anesthesia: No history of adverse event Airway Assessment: MP 2; Neck ROM: Full ROM without neurologic symptoms; Airway Evaluation: No significant abnormalities Symptoms of Sleep Apnea: None Dentition: Teeth intact Additional Physical Exam: Lungs: Patient health status unchanged since recent history and physical. See history and physical for exam findings. Cardiac: Patient health status unchanged since recent history and physical. See history and physical for exam findings. Additional Pertinent Findings: N/A Blood Products: Not anticipated for this procedure Anesthetic Plan: MAC with general as back up Anesthetic Monitoring: Standard ASA Monitors Pain Management Plan: Parenteral or Oral ASA Class: 3 Other Medical Problems: Morbid obesity, HTN, anemia, depression, gerd, diverticulosis Chronic Beta Bill medication administered within 24 hours: N/A I have interviewed and examined the patient. I have reviewed the medical record and/or the pre-anesthesia evaluation, pertinent labs, and test results. Significant changes in the patient's condition since the History and Physical, not otherwise documented in primary service progress notes: No This contains updated information obtained within 48 hours of Surgery/Procedure. SIGNATURE: Wilman Flores MD PATIENT NAME: Jessica Worrell DATE: February 16, 2019 TIME: 6:53 AM CSN: [id number] [facility] NURSING PROGon 02-16-2019 Protein mass conc HNO ID: [id number] Author: Collette (Rn) TYREE Carlton Service: ? Author Type: Registered Nurse Type: Nursing Progress Note Filed: 02/16/2019 7:20 AM Note Text: @ 0644 Pt received to ASCU, ambulatory AND steady when up - pleasant AND cooperative with care. @ 0720 Ready for procedure. [facility] OPERATIVE NOon 02-16-2019 OPERATIVE NO HNO ID: [id number] Author: Minh Kingsley Service: ? Author Type: Physician Type: Operative Report Filed: 02/16/2019 2:50 PM Note Text: [facility] - Operative Report JESSICA WORRELL : 1950 AGE: 68. SEX: F PATIENT TYPE: A HOSP SVC: ASHLEY LOCATION: [facility] ATTENDING PHYSICIAN: Minh Kingsley M.D. CSN NUMBER: [id number] DATE OF SURGERY/PROCEDURE: 02/16/2019 INCISION/PROCEDURE START TIME: Scope in at 0750. INCISION CLOSE/PROCEDURE END TIME: Scope out at 0831. PREOPERATIVE DIAGNOSIS: Patient with a history of colon polyps. POSTOPERATIVE DIAGNOSIS: 1. A 3 mm benign-appearing ascending colon polyp removed via hot biopsy. 2. A 3 mm benign-appearing transverse colon polyp removed via hot biopsy. No evidence of complication. Both polyps submitted for histology. 3. Diffuse and extensive diverticulosis. 4. Large internal hemorrhoids. 5. Large external hemorrhoids. 6. Highly and diffusely tortuous colonic course. 7. Suboptimal bowel prep. Estimated 85% of the colonic mucosa directly visualized. SURGEON: Minh Kingsley M.D. BUTTON SPINDLER: Madison Johnson. SURGERY/PROCEDURE: Colonoscopy with polypectomy. ANESTHESIA: Monitored anesthesia care. INDICATIONS: Patient with a history of colon polyps. CONSENT: The patient was described the potential risks, benefits, and alternatives to colonoscopy with intervention. All questions answered. Patient gave informed consent. DESCRIPTION OF PROCEDURE: Patient was placed in the left lateral decubitus position, monitored and sedated via monitored anesthesia care under direct vision with moderate difficulty secondary to an extremely and diffusely tortuous colonic course. The pediatric colonoscope was advanced to the cecum. The cecum was identified by triangular folds, ileocecal valve, visualization of the appendiceal orifice, and transillumination of the right pelvis. The bowel preparation was suboptimal as that there was a moderate amount of retained and liquid stool in the colon. Irrigation and suction technique was used to obtain the most optimal views possible. Within the limits of this bowel preparation, it was estimated that 85% of the colonic mucosa could be directly visualized. Within the limits of this bowel preparation, it was noted that there was a 3 mm benign-appearing cecal polyp. This was removed via hot biopsy forceps technique. The ascending colon appeared normal with the exception of multiple large mouth diverticula as did all sections of the colon. The transverse colon revealed a benign-appearing 3 mm polyp removed via hot biopsy. Both polyps were submitted for histology. There was no evidence of complication following polypectomy. The remainder of the transverse colon appeared normal as did the descending colon and sigmoid colon. The rectum appeared normal with the exception of large internal hemorrhoids noted on retroflexed view. The scope was straightened and slowly withdrawn. Large external hemorrhoids were noted. A postprocedure digital rectal exam was otherwise normal and the patient tolerated the procedure well. POSTOPERATIVE PLAN: 1. Await biopsy results. 2. High-fiber diet. 3. Follow up in my office on an as-needed basis for digestive-related problems. LOG ID: [id number]. Minh Kingsley M.D. DBM:[id number] /[id number] cc: * Dr. Deneen Garcia [facility] PT EDon 02-16-2019 PT ED HNO ID: [id number] Author: Meño Petit RN Service: Nursing Author Type: Registered Nurse Type: Patient Education Filed: 02/16/2019 9:20 AM Note Text: POST OP LEARNING RESPONSE INSTRUCTION PROVIDED TO: Patient and family member METHOD OF INSTRUCTION: Written instruction - handouts PATIENT / FAMILY RESPONSE: Verbalizes understanding of: POST-OPERATIVE INSTRUCTIONS-Correct actions to take to reduce postoperative complications FOLLOW-UP PLAN: Recommend - Recommend continued instruction and follow up as directed SUPPLEMENTAL MATERIAL: None REFERRAL (RECOMMENDATION): None Electronically Signed By: Meño Petit RN In Department: [facility] ENDOSCOPY [facility] PT ED HNO ID: [id number] Author: Collette Carlton RN Service: ? Author Type: Registered Nurse Type: Patient Education Filed: 02/16/2019 7:20 AM Note Text: PROCEDURE/SURGERY: colonoscopy READINESS TO LEARN COGNITIVE ABILITY: Alert and oriented MOTIVATION TO LEARN: Eager FAMILY SUPPORT: Unable to assess - Family not present PATIENT LEARNS BEST BY: Verbal Instruction FACTORS AFFECTING LEARNING: None PHYSICAL LIMITATIONS AFFECTING LEARNING: None Electronically Signed By: Collette Carlton RN In Department: [facility] ENDOSCOPY [facility] SURGICAL PATHOLOGYon 019 SURGICAL PATHOLOGY Specimen originated from [facility] Specimen #: [id number] Submitting Physician: Minh Kingsley M.D. FINAL DIAGNOSIS 1. Colon, distal transverse polyp, biopsy (A) - Tubular adenoma. 2. Colon, cecal polyp, biopsy (B) - Colonic mucosa with no pathologic diagnostic abnormality; see comment. SS/lilian/02/17/19 COMMENT 2. Additional deeper levels were also examined. Jaime Rodriguez M.D. (Electronic Signature) _ SPECIMEN SUBMITTED A: DISTAL TRANSVERSE COLON POLYP B: CECUM POLYP CLINICAL DATA POLYPS, LMP: NA GROSS DESCRIPTION A. Received in formalin is one piece of mayo, soft tissue measuring 0.3 x 0.3 x 0.2 cm. Totally submitted in one cassette. B. Received in formalin is one piece of mayo, soft tissue measuring 0.3 x 0.3 x 0.1 cm. Totally submitted in one cassette. Gross examination performed at [facility], [address] [place] [address] 02/16/2019 4:46:23 PM Date of Report: 02/17/2019 Date of Procedure: 02/16/2019 Date of Receipt: 02/16/2019 Submitted by: Minh Kingsley M.D. Location: [facility] Diagnostic interpretation performed at [facility], [address] [place] [address]. CLIA Number: [id number] [facility] NURSING PROGon 02-15-2019 Protein mass conc HNO ID: [id number] Author: Dominga (Rn) TYREE Turcios Service: ? Author Type: Registered Nurse Type: Nursing Progress Note Filed: 02/15/2019 9:11 AM Note Text: PACC Nurse Progress Note History AND Physical: PACC Visit Date: 02/10/19 Original HANDP Date: N/A ED visit Date: N/A Outside HANDP Scanned Date: N/A Labs Within Last 6 Months: BMP/CMP: Date 01/12/19-(alk phos-124) HBA1C: Date *01/12/19-(5.2) OTHER TEST: Iron panel, Date 01/12/19-see chart Imaging Within Last 12 Months: N/A Cardiac Testing: N/A Last Menstrual Period: LMP Date: N/A Postmenopausal >1yr: Yes, S/P Hysterectomy: YesBMI Percentile (PEDS): N/A Risk Assessment: N/A Anesthesia Review: N/A Narrative: Per HPI: Anemia; GERD Pre-op Considerations: N/A Chart Check: COMPLETED Dominga Turcios RN February 15, 2019 9:10 AM [facility] HOSPon 01-12-2019 HOSP Patient:Tamra Worrell MRN: Height:5' 3.5(1.613 m) Weight:211 lb 12.8 oz (96.072 kg) Outpatient Medications as of 02/16/19: ondansetron (ZOFRAN) 4 mg tablet meloxicam (MOBIC) 15 mg tablet losartan (COZAAR) 25 mg tablet Ferrous Gluconate 324 mg (36 mg iron) tab Omeprazole 40 mg capsule zolpidem (AMBIEN) 5 mg tablet calcium carbonate-vitamin D3 (CALCIUM 500+D) 500 mg(1,250mg) -400 unit chewable tablet Cholecalciferol, Vitamin D3, (VITAMIN D-3) 2,000 unit cap COMPOUNDED PRESCRIPTION multivitamin tablet loratadine(CLARITIN 10 MG TAB) Admission/Clinic Administered Medications as of 02/16/19: NaCl 0.9% 2-10 mL lactated ringers infusion Problem List: Depressive disorder, not elsewhere classified [F32.9] Allergic rhinitis, cause unspecified [J30.9] Esophageal reflux [K21.9] Iron deficiency anemia, unspecified [D50.9] Acute gastritis without mention of hemorrhage [K29.00] Osteopenia [M89.9, M94.9] Primary localized osteoarthrosis, lower leg [M17.10] Tubular adenoma of colon [D12.6] Chronic diarrhea [K52.9] BMI 40.0-44.9, adult (HCC) [Z68.41] Pain in joint, shoulder region [M25.519] Essential hypertension [I10] Glucose intolerance (impaired glucose tolerance) [R73.02] Impingement syndrome of right shoulder [M75.41] Arthritis of right shoulder region [M19.011] Myopia of both eyes [H52.13] Allergies: Elliot Inhibitors Norvasc [Amlodipine Besylate] Poison Kendy Date Verified: 02/16/19 Lab Values No results within the last 30 days for the following basenames: K,HCT Progress Notes ([facility]): Lester Walker, II, OD 02/12/2019 5:03 PM Signed Assessment and Plan H52.13 Myopia of both eyes (primary encounter diagnosis) Comment: Remake glasses with adjusted prism. Recheck prn. I have confirmed and edited as necessary the relevant ophthalmic history, ROS, and the neuro exam findings as obtained by others. I have seen and examined Jessica Worrell. I have discussed the case and the management of this patient's care with the Resident/Fellow, if applicable. I also have reviewed and agree with the assessment and plan as stated above and agree with all of its relevant components. Lester Walker, II, OD Lester Walker, II, OD 02/12/2019 5:02 PM Signed Assessment and Plan H52.13 Myopia of both eyes (primary encounter diagnosis) Comment: Remake glasses with adjusted prism. Recheck prn. Progress Notes ([facility]): Elizabeth Walker, OD 02/01/2019 11:33 AM Signed ASSESSMENT/PLAN: 1. Myopia of both eyes - ICD9: 367.1, ICD10: H52.13 (primary diagnosis) 2. Regular astigmatism of left eye - ICD9: 367.21, ICD10: H52.222 3. Presbyopia - ICD9: 367.4, ICD10: H52.4 Continue to wear her glasses with the update in power and prism. 4. 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 5. Combined form of senile cataract of both eyes - ICD9: 366.19, ICD10: H25.813 Mild cataract in both eyes. Well tolerated at this time. Discussed possible future affect on daily activities to watch for. Monitor as instructed. Recommended yearly exams. Elizabeth Walker, OD I have confirmed and edited as necessary the relevant ophthalmic history, ROS, and the neuro exam findings as obtained by others. I have seen and examined this patient. I have discussed the case and the management of this patient's care with the Resident/Fellow, if applicable. I also have reviewed and agree with the assessment and plan as stated above and agree with all of its relevant components. Elizabeth Walker, OD 02/01/2019 11:31 AM Signed ASSESSMENT/PLAN: 1. Myopia of both eyes - ICD9: 367.1, ICD10: H52.13 (primary diagnosis) 2. Regular astigmatism of left eye - ICD9: 367.21, ICD10: H52.222 3. Presbyopia - ICD9: 367.4, ICD10: H52.4 Continue to wear her glasses with the update in power and prism. 4. 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 5. Combined form of senile cataract of both eyes - ICD9: 366.19, ICD10: H25.813 Mild cataract in both eyes. Well tolerated at this time. Discussed possible future affect on daily activities to watch for. Monitor as instructed. Recommended yearly exams. Normal [facility] Vital Signs Date Time Vital Sign Value Performing Clinician Facility 07-01-2025 15:08-0400 Body mass index (BMI) [Ratio] 41.3 kg/m2 Deneen Garcia MD Work Phone: [facility] 07-01-2025 15:08-0400 Body weight 105.74 kg Deneen Garcia MD Work Phone: [facility] 07-01-2025 15:08-0400 Diastolic blood pressure 79 mm[Hg] Deneen Garcia MD Work Phone: [facility] 07-01-2025 15:08-0400 Heart rate 94 /min Deneen Garcia MD Work Phone: [facility] 07-01-2025 15:08-0400 Respiratory rate 16 /min Deneen Garcia MD Work Phone: [facility] 07-01-2025 15:08-0400 Systolic blood pressure 135 mm[Hg] Deneen Garcia MD Work Phone: [facility] 05-06-2025 13:58-0400 Body mass index (BMI) [Ratio] 41.81 kg/m2 Josselin Older SALT MACHINE OPERATOR.POINT OF CARE TECHNICIAN Work Phone: [facility] 05-06-2025 13:58-0400 Body weight 107.05 kg Josselin Older SALT MACHINE OPERATOR.POINT OF CARE TECHNICIAN Work Phone: [facility] 05-06-2025 13:58-0400 Diastolic blood pressure 80 mm[Hg] Josselin Older SALT MACHINE OPERATOR.POINT OF CARE TECHNICIAN Work Phone: [facility] 05-06-2025 13:58-0400 Heart rate 101 /min Josselin Older SALT MACHINE OPERATOR.POINT OF CARE TECHNICIAN Work Phone: [facility] 05-06-2025 13:58-0400 Respiratory rate 16 /min Josselin Older SALT MACHINE OPERATOR.POINT OF CARE TECHNICIAN Work Phone: [facility] 05-06-2025 13:58-0400 Systolic blood pressure 142 mm[Hg] Josselin Older SALT MACHINE OPERATOR.POINT OF CARE TECHNICIAN Work Phone: [facility] 03-24-2025 11:18-0400 Diastolic blood pressure 94 mm[Hg] Deneen Garcia MD Work Phone: [facility] 03-24-2025 11:18-0400 Systolic blood pressure 136 mm[Hg] Deneen Garcia MD Work Phone: [facility] 03-24-2025 10:20-0400 Body mass index (BMI) [Ratio] 41.52 kg/m2 Deneen Garcia MD Work Phone: [facility] 03-24-2025 10:20-0400 Body weight 106.32 kg Deneen Garcia MD Work Phone: [facility] 03-24-2025 10:20-0400 Heart rate 52 /min Deneen Garcia MD Work Phone: [facility] 03-24-2025 10:20-0400 Respiratory rate 16 /min Deneen Garcia MD Work Phone: [facility] 11-26-2024 14:31-0500 Diastolic blood pressure 86 mm[Hg] Deneen Garcia MD Work Phone: [facility] 11-26-2024 14:31-0500 Systolic blood pressure 142 mm[Hg] Deneen Garcia MD Work Phone: [facility] 11-26-2024 13:42-0500 Body mass index (BMI) [Ratio] 41.34 kg/m2 Deneen Garcia MD Work Phone: [facility] 11-26-2024 13:42-0500 Body weight 105.87 kg Deneen Garcia MD Work Phone: [facility] 11-26-2024 13:42-0500 Heart rate 93 /min Deneen Garcia MD Work Phone: [facility] 11-26-2024 13:42-0500 Respiratory rate 16 /min Deneen Garcia MD Work Phone: [facility] 11-26-2024 13:42-0500 SaO2% (BldA) [Mass fraction] 98 % Deneen Garcia MD Work Phone: [facility] 05-26-2024 08:39-0400 Body mass index (BMI) [Ratio] 39.08 kg/m2 Deneen Garcia MD Work Phone: [facility] 05-26-2024 08:39-0400 Body weight 100.06 kg Deneen Garcia MD Work Phone: [facility] 05-26-2024 08:39-0400 Diastolic blood pressure 80 mm[Hg] Deneen Garcia MD Work Phone: [facility] 05-26-2024 08:39-0400 Heart rate 76 /min Deneen Garcia MD Work Phone: [facility] 05-26-2024 08:39-0400 Respiratory rate 16 /min Deneen Garcia MD Work Phone: [facility] 05-26-2024 08:39-0400 Systolic blood pressure 126 mm[Hg] Deneen Gacria MD Work Phone: [facility] 05-04-2024 13:50-0400 Body mass index (BMI) [Ratio] 39.5 kg/m2 Deneen Garcia MD Work Phone: [facility] 05-04-2024 13:50-0400 Body weight 101.15 kg Deneen Garcia MD Work Phone: [facility] 05-04-2024 13:50-0400 Diastolic blood pressure 100 mm[Hg] Deneen Garcia MD Work Phone: [facility] 05-04-2024 13:50-0400 Heart rate 104 /min Deneen Garcia MD Work Phone: [facility] 05-04-2024 13:50-0400 Respiratory rate 18 /min Deneen Garcia MD Work Phone: [facility] 05-04-2024 13:50-0400 SaO2% (BldA) [Mass fraction] 96 % Deneen Garcia MD Work Phone: [facility] 05-04-2024 13:50-0400 Systolic blood pressure 160 mm[Hg] Deneen Garcia MD Work Phone: [facility] 04-23-2024 08:19-0400 Diastolic blood pressure 84 mm[Hg] Sunita Kaylin SALT MACHINE OPERATOR.POINT OF CARE TECHNICIAN Work Phone: [facility] 04-23-2024 08:19-0400 Systolic blood pressure 130 mm[Hg] Sunita Kaylin SALT MACHINE OPERATOR.POINT OF CARE TECHNICIAN Work Phone: [facility] 04-23-2024 08:17-0400 Body mass index (BMI) [Ratio] 39.15 kg/m2 Sunita Kaylin SALT MACHINE OPERATOR.POINT OF CARE TECHNICIAN Work Phone: [facility] 04-23-2024 08:17-0400 Body weight 100.25 kg Sunita Kaylin SALT MACHINE OPERATOR.POINT OF CARE TECHNICIAN Work Phone: [facility] 04-23-2024 08:17-0400 Heart rate 90 /min Sunita Kaylin SALT MACHINE OPERATOR.POINT OF CARE TECHNICIAN Work Phone: [facility] 04-23-2024 08:17-0400 SaO2% (BldA) [Mass fraction] 98 % Sunita Kaylin SALT MACHINE OPERATOR.POINT OF CARE TECHNICIAN Work Phone: [facility] 04-08-2024 13:05-0400 Body mass index (BMI) [Ratio] 39.5 kg/m2 Josselin Older SALT MACHINE OPERATOR.POINT OF CARE TECHNICIAN Work Phone: [facility] 04-08-2024 13:05-0400 Body weight 101.15 kg Josselin Older SALT MACHINE OPERATOR.POINT OF CARE TECHNICIAN Work Phone: [facility] 04-08-2024 13:05-0400 Diastolic blood pressure 80 mm[Hg] Josselin Older SALT MACHINE OPERATOR.POINT OF CARE TECHNICIAN Work Phone: [facility] 04-08-2024 13:05-0400 Heart rate 120 /min Josselin Older SALT MACHINE OPERATOR.POINT OF CARE TECHNICIAN Work Phone: [facility] 04-08-2024 13:05-0400 Respiratory rate 16 /min Josselin Older SALT MACHINE OPERATOR.POINT OF CARE TECHNICIAN Work Phone: [facility] 04-08-2024 13:05-0400 SaO2% (BldA) [Mass fraction] 97 % Josselin Older SALT MACHINE OPERATOR.POINT OF CARE TECHNICIAN Work Phone: [facility] 04-08-2024 13:05-0400 Systolic blood pressure 122 mm[Hg] Josselin Older SALT MACHINE OPERATOR.POINT OF CARE TECHNICIAN Work Phone: [facility] 04-01-2024 11:23-0400 Body temperature 97.11 [degF] Josselin Older SALT MACHINE OPERATOR.POINT OF CARE TECHNICIAN Work Phone: [facility] 04-01-2024 11:23-0400 Diastolic blood pressure 78 mm[Hg] Josselin Older SALT MACHINE OPERATOR.POINT OF CARE TECHNICIAN Work Phone: [facility] 04-01-2024 11:23-0400 Heart rate 112 /min Josselin Older SALT MACHINE OPERATOR.POINT OF CARE TECHNICIAN Work Phone: [facility] 04-01-2024 11:23-0400 Respiratory rate 18 /min Josselin Older SALT MACHINE OPERATOR.POINT OF CARE TECHNICIAN Work Phone: [facility] 04-01-2024 11:23-0400 SaO2% (BldA) [Mass fraction] 96 % Josselin Older SALT MACHINE OPERATOR.POINT OF CARE TECHNICIAN Work Phone: [facility] 04-01-2024 11:23-0400 Systolic blood pressure 128 mm[Hg] Josselin Older SALT MACHINE OPERATOR.POINT OF CARE TECHNICIAN Work Phone: [facility] 03-31-2024 09:12-0400 Body mass index (BMI) [Ratio] 42.51 kg/m2 Sugey Podlogar SALT MACHINE OPERATOR.POINT OF CARE TECHNICIAN Work Phone: [facility] 03-31-2024 09:12-0400 Body temperature 99.7 [degF] Sugey Podlogar SALT MACHINE OPERATOR.POINT OF CARE TECHNICIAN Work Phone: [facility] 03-31-2024 09:12-0400 Body weight 108.86 kg Sugey Podlogar SALT MACHINE OPERATOR.POINT OF CARE TECHNICIAN Work Phone: [facility] 03-31-2024 09:12-0400 Diastolic blood pressure 82 mm[Hg] Sugey Podlogar SALT MACHINE OPERATOR.POINT OF CARE TECHNICIAN Work Phone: [facility] 03-31-2024 09:12-0400 Heart rate 114 /min Sugey Podlogar SALT MACHINE OPERATOR.POINT OF CARE TECHNICIAN Work Phone: [facility] 03-31-2024 09:12-0400 Respiratory rate 20 /min Sugey Podlogar SALT MACHINE OPERATOR.POINT OF CARE TECHNICIAN Work Phone: [facility] 03-31-2024 09:12-0400 SaO2% (BldA) [Mass fraction] 96 % Sugey Podlogar SALT MACHINE OPERATOR.POINT OF CARE TECHNICIAN Work Phone: [facility] 03-31-2024 09:12-0400 Systolic blood pressure 138 mm[Hg] Sugey Podlogar SALT MACHINE OPERATOR.POINT OF CARE TECHNICIAN Work Phone: [facility] 01-07-2024 11:00-0400 Diastolic blood pressure 94 mm[Hg] Guanakito Golias PT Work Phone: [facility] 01-07-2024 11:00-0400 Heart rate 99 /min Guanakito Golias PT Work Phone: [facility] 01-07-2024 11:00-0400 Systolic blood pressure 136 mm[Hg] Guanakito Reyna PT Work Phone: [facility] 12-01-2023 15:45-0500 Body weight 108.86 kg Mira Joseph MD Work Phone: [facility] 12-01-2023 15:45-0500 Diastolic blood pressure 76 mm[Hg] Mira Joseph MD Work Phone: [facility] 12-01-2023 15:45-0500 Systolic blood pressure 120 mm[Hg] Mira Joseph MD Work Phone: [facility] 10-28-2023 00:39-0500 Body height 160.02 cm [facility] 10-28-2023 00:39-0500 Body mass index (BMI) [Ratio] 44.4 kg/m2 [facility] 10-28-2023 00:39-0500 Body temperature 97.8 [degF] [facility] 10-28-2023 00:39-0500 Body weight 113.6 kg [facility] 10-28-2023 00:39-0500 Diastolic blood pressure 109 mm[Hg] [facility] 10-28-2023 00:39-0500 Heart rate 84 /min [facility] 10-28-2023 00:39-0500 Respiratory rate 16 /min [facility] 10-28-2023 00:39-0500 SaO2% (BldA) [Mass fraction] 97 % [facility] 10-28-2023 00:39-0500 Systolic blood pressure 170 mm[Hg] [facility] 09-25-2023 13:42-0500 Diastolic blood pressure 79 mm[Hg] Josselin Older SALT MACHINE OPERATOR.POINT OF CARE TECHNICIAN Work Phone: [facility] 09-25-2023 13:42-0500 Systolic blood pressure 116 mm[Hg] Josselin Older SALT MACHINE OPERATOR.POINT OF CARE TECHNICIAN Work Phone: [facility] 09-25-2023 13:09-0500 Body weight 107.96 kg Josselin Older SALT MACHINE OPERATOR.POINT OF CARE TECHNICIAN Work Phone: [facility] 09-25-2023 13:09-0500 Heart rate 102 /min Josselin Older SALT MACHINE OPERATOR.POINT OF CARE TECHNICIAN Work Phone: [facility] 09-25-2023 13:09-0500 Respiratory rate 16 /min Josselin Older SALT MACHINE OPERATOR.POINT OF CARE TECHNICIAN Work Phone: [facility] 09-25-2023 13:09-0500 SaO2% (BldA) [Mass fraction] 97 % Josselin Older SALT MACHINE OPERATOR.POINT OF CARE TECHNICIAN Work Phone: [facility] 06-26-2023 11:33-0400 Diastolic blood pressure 81 mm[Hg] Josselin Older SALT MACHINE OPERATOR.POINT OF CARE TECHNICIAN Work Phone: [facility] 06-26-2023 11:33-0400 Systolic blood pressure 123 mm[Hg] Josselin Older SALT MACHINE OPERATOR.POINT OF CARE TECHNICIAN Work Phone: [facility] 06-26-2023 10:46-0400 Body weight 106.14 kg Josselin Older SALT MACHINE OPERATOR.POINT OF CARE TECHNICIAN Work Phone: [facility] 06-26-2023 10:46-0400 Heart rate 102 /min Josselin Older SALT MACHINE OPERATOR.POINT OF CARE TECHNICIAN Work Phone: [facility] 06-26-2023 10:46-0400 Respiratory rate 16 /min Josselin Older SALT MACHINE OPERATOR.POINT OF CARE TECHNICIAN Work Phone: [facility] 06-26-2023 10:46-0400 SaO2% (BldA) [Mass fraction] 97 % Josselin Older SALT MACHINE OPERATOR.POINT OF CARE TECHNICIAN Work Phone: [facility] 12-12-2022 11:49-0500 Diastolic blood pressure 87 mm[Hg] Deneen Garcia MD Work Phone: [facility] 12-12-2022 11:49-0500 Heart rate 80 /min Deneen Garcia MD Work Phone: [facility] 12-12-2022 11:49-0500 Systolic blood pressure 127 mm[Hg] Deneen Garcia MD Work Phone: [facility] 02-23-2023 11:24-0500 Body weight 106.14 kg Deneen Garcia MD Work Phone: [facility] 12-12-2022 11:24-0500 Respiratory rate 16 /min Deneen Garcia MD Work Phone: [facility] 12-12-2022 11:24-0500 SaO2% (BldA) [Mass fraction] 98 % Deneen Garcia MD Work Phone: [facility] 07-23-2022 11:28-0400 Diastolic blood pressure 76 mm[Hg] Deneen Garcia MD Work Phone: [facility] 07-23-2022 11:28-0400 Systolic blood pressure 126 mm[Hg] Deneen Garcia MD Work Phone: [facility] 07-23-2022 10:40-0400 Body height 160 cm Deneen Garcia MD Work Phone: [facility] 07-23-2022 10:40-0400 Body temperature 97.5 [degF] Deneen Garcia MD Work Phone: [facility] 07-23-2022 10:40-0400 Body weight 103.87 kg Deneen Garcia MD Work Phone: [facility] 07-23-2022 10:40-0400 Heart rate 95 /min Deneen Garcia MD Work Phone: [facility] 07-23-2022 10:40-0400 Respiratory rate 18 /min Deneen Garcia MD Work Phone: [facility] 07-23-2022 10:40-0400 SaO2% (BldA) [Mass fraction] 99 % Deneen Garcia MD Work Phone: [facility] 04-10-2022 16:09-0400 Body height 160 cm Deneen Garcia MD Work Phone: [facility] 04-10-2022 16:09-0400 Body temperature 97.2 [degF] Deneen Garcia MD Work Phone: [facility] 04-10-2022 16:09-0400 Body weight 107.5 kg Deneen Garcia MD Work Phone: [facility] 04-10-2022 16:09-0400 Diastolic blood pressure 72 mm[Hg] Deneen Garcia MD Work Phone: [facility] 04-10-2022 16:09-0400 Heart rate 89 /min Deneen Garcia MD Work Phone: [facility] 04-10-2022 16:09-0400 Respiratory rate 14 /min Deneen Garcia MD Work Phone: [facility] 04-10-2022 16:09-0400 SaO2% (BldA) [Mass fraction] 97 % Deneen Garcia MD Work Phone: [facility] 04-10-2022 16:09-0400 Systolic blood pressure 136 mm[Hg] Deneen Garcia MD Work Phone: [facility] 03-30-2022 11:50-0400 Body temperature 98.6 [degF] Martina Tannhof SALT MACHINE OPERATOR.POINT OF CARE TECHNICIAN Work Phone: [facility] 03-30-2022 11:50-0400 Body weight 108.86 kg Martina Tannhof SALT MACHINE OPERATOR.POINT OF CARE TECHNICIAN Work Phone: [facility] 03-30-2022 11:50-0400 Diastolic blood pressure 90 mm[Hg] Martina Tannhof SALT MACHINE OPERATOR.POINT OF CARE TECHNICIAN Work Phone: [facility] 03-30-2022 11:50-0400 Heart rate 83 /min Martina Tannhof SALT MACHINE OPERATOR.POINT OF CARE TECHNICIAN Work Phone: [facility] 03-30-2022 11:50-0400 SaO2% (BldA) [Mass fraction] 98 % Martina Tannhof SALT MACHINE OPERATOR.POINT OF CARE TECHNICIAN Work Phone: [facility] 03-30-2022 11:50-0400 Systolic blood pressure 168 mm[Hg] Martina Tannhof SALT MACHINE OPERATOR.POINT OF CARE TECHNICIAN Work Phone: [facility] 02-08-2022 13:46-0400 Body weight 109.32 kg Mira Joseph MD Work Phone: [facility] 02-08-2022 13:46-0400 Diastolic blood pressure 90 mm[Hg] Mira Joseph MD Work Phone: [facility] 02-08-2022 13:46-0400 Systolic blood pressure 138 mm[Hg] Mira Joseph MD Work Phone: [facility] 01-21-2022 11:09-0400 Body weight 108.5 kg Mira Joseph MD Work Phone: [facility] 01-21-2022 11:09-0400 Diastolic blood pressure 90 mm[Hg] Mira Joseph MD Work Phone: [facility] 01-21-2022 11:09-0400 Systolic blood pressure 120 mm[Hg] Mira Joseph MD Work Phone: [facility] Encounters Encounter Date Encounter Type Care Provider Facility Start: 07-08-2025 End: 07-08-[address] 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 [employer] -Physical Therapy Work Phone: Start: 06-21-2025 End: 07-01-2025 ambulatory Deneen Garcia MD Work Phone: [facility] [place] Comment on above: Bloodwork Start: 06-14-2025 End: 06-17-2025 ambulatory Josselin Stevens APRN.CNP Work Phone: [facility] [place] Start: 06-14-2025 End: 06-17-2025 Patient encounter procedure Josselin Stevens APRN.POINT OF CARE TECHNICIAN Work Phone: [facility] [place] Comment on above: Referral for PT on k nees, post-test results Start: 05-30-2025 End: 05-30-2025 Patient encounter procedure Dariel Patel OD Work Phone: Ophthalmology Comment on above: Diplopia (Primary Dx ); Combined forms of age-related cataract of both eyes; Myopia of both eyes; Presbyopia; Regular astigmatism of both eyes Start: 05-30-2025 End: 05-30-2025 ambulatory DENEEN GARCIA Facility:[facility] Start: 05-12-2025 End: 05-16-2025 Follow-up encounter Josselin Stevens APRN.POINT OF CARE TECHNICIAN Work Phone: [facility] [place] Start: 05-11-2025 End: 05-12-2025 Telephone encounter Josselin Stevens APRN.POINT OF CARE TECHNICIAN Work Phone: [facility] [place] Comment on above: Medication Problem; Consult Start: 05-09-2025 End: 05-11-2025 ambulatory Deneen Garcia MD Work Phone: [facility] [place] Start: 05-09-2025 End: 05-11-2025 Patient encounter procedure Deneen Garcia MD Work Phone: [facility] [place] Comment on above: Colonoscopy Referral Start: 05-06-2025 End: 05-06-2025 Subsequent hospital visit by physician Linda [facility] [place] Work Phone: Radiology Comment on above: Acute pain of left k nee [M25.562] Start: 05-06-2025 End: 05-06-2025 Office outpatient visit 25 minutes Josselin Stevens APRN.POINT OF CARE TECHNICIAN Work Phone: [facility] [place] Comment on above: Acute pain of left k nee (Primary Dx) Start: 05-06-2025 End: 05-06-2025 ambulatory JOSSELIN STEVENS Facility:[facility] Start: 04-27-2025 End: 04-27-2025 [facility] Facility:[facility] Start: 04-15-2025 End: 04-15-2025 Refill Mira Joseph MD Work Phone: OB/Gynecology Comment on above: Refill Request Start: 03-24-2025 End: 03-24-2025 Office outpatient visit 25 minutes Deneen Garcia MD Work Phone: [facility] [place] Comment on above: Hiatal hernia (Prima ry Dx); Gastroesophageal reflux disease without esophagitis; Schatzki's ring; Essential hypertension; Morbid obesity (HCC); Tinea corporis Start: 03-24-2025 End: 03-24-2025 [facility] Facility:[facility] Start: 02-22-2025 End: 02-22-2025 Refill Deneen Garcia MD Work Phone: [facility] [place] Comment on above: Refill Request Start: 02-16-2025 End: 02-17-2025 Refill Caro Christensen APRN.CNP Work Phone: [facility] [place] Comment on above: Refill Request Start: 11-26-2024 End: 11-26-2024 [facility] Facility:[facility] Start: 11-26-2024 End: 11-26-2024 Office outpatient visit 25 minutes Deneen Garcia MD Work Phone: [facility] [place] Comment on above: Essential hypertensi on (Primary Dx); Screening for depression; Encounter for screening examination for other mental health and behavioral disorders; Insomnia, unspecified type; Hypertriglyceridemia; Rash of neck Start: 11-19-2024 End: 11-19-2024 Subsequent hospital visit by physician Screen Mammo [facility] Mammogram Start: 11-19-2024 End: 11-19-2024 [facility] Facility:[facility] Start: 11-12-2024 End: 11-17-2024 ambulatory Deneen Garcia MD Work Phone: [facility] [place] Comment on above: Blood work Start: 11-02-2024 End: 12-03-2024 ambulatory Deneen Garcia MD Work Phone: [facility] [place] Start: 09-20-2024 End: 09-21-2024 Refill Mira Joseph MD Work Phone: OB/Gynecology Comment on above: Refill Request Start: 07-21-2024 End: 07-21-2024 ambulatory Natalie Serrano MA [facility] Start: 07-21-2024 End: 07-21-2024 Patient encounter procedure Natalie Serrano MA [facility] Comment on above: Population Health Na vigation Outreach (/C, Care gaps, HCC, [place] PCSA//) Start: 06-30-2024 End: 06-30-2024 Refill Josselin Stevens APRN.POINT OF CARE TECHNICIAN Work Phone: [facility] [place] Comment on above: Refill Request Start: 06-22-2024 End: 06-22-2024 Patient encounter procedure Elayne Bull APRN.POINT OF CARE TECHNICIAN Work Phone: Dermatology Comment on above: Seborrheic keratosis (Primary Dx); Cormier angioma; Multiple benign nevi; Lentigines; Milia; Skin cancer screening Start: 05-27-2024 End: 05-27-2024 Patient encounter procedure Dariel Patel OD Work Phone: Ophthalmology Comment on above: Diplopia (Primary Dx ); Combined forms of age-related cataract of both eyes; Myopia of both eyes; Presbyopia; Regular astigmatism of both eyes Start: 05-26-2024 End: 05-26-2024 Patient encounter procedure Deneen Garcia MD Work Phone: [facility] [place] Comment on above: MCI (mild cognitive impairment) (Primary Dx); Class 2 severe obesity with serious comorbidity and body mass index (BMI) of 39.0 to 39.9 in adult, unspecified obesity type (HCC) Start: 05-19-2024 ambulatory Mila Norman [facility] Start: 05-19-2024 Patient encounter procedure Mila Norman MA [facility] [place] Comment on above: Population Health Na vigation Outreach ([facility] [place] ) Start: 05-18-2024 Telephone encounter Deneen nicole MD Work Phone: [facility] [place] Comment on above: Forms Start: 05-14-2024 Telephone encounter Cholo Temple MD Work Phone: [facility] [place] Comment on above: Results Start: 05-13-2024 End: 05-13-2024 Subsequent hospital visit by physician [facility] Work Phone: Radiology Comment on above: Enlarged lymph node in neck [R59.0] Start: 05-05-2024 ambulatory Josselin CourtneyPOINT OF CARE TECHNICIAN Work Phone: [facility] [place] Comment on above: Bloodwork on May 04 Start: 05-04-2024 Telephone encounter Deneen nicole MD Work Phone: [facility] [place] Comment on above: Orders Start: 05-04-2024 End: 05-04-2024 Office outpatient visit 25 minutes Deneen Garcia MD Work Phone: [facility] [place] Comment on above: Medicare annual well ness visit, subsequent (Primary Dx); Essential hypertension; Iron deficiency anemia secondary to inadequate dietary iron intake; Memory change; Fatigue, unspecified type; Elevated vitamin B12 level Start: 05-04-2024 End: 05-04-2024 Patient encounter procedure Deneen Garcia MD Work Phone: [facility] Work Phone: Start: 04-23-2024 End: 04-23-2024 Patient encounter procedure Sunita Ewing APRN.POINT OF CARE TECHNICIAN Work Phone: [facility] [place] Comment on above: Leukocytosis, unspec ified type (Primary Dx); Enlarged lymph node in neck; Malaise and fatigue; Vitamin D deficiency; Encounter for therapeutic drug monitoring Start: 04-21-2024 Telephone encounter Deneen nicole MD Work Phone: [facility] [place] Comment on above: Patient Update Start: 04-13-2024 End: 04-13-2024 Patient encounter procedure Dariel Patel OD Work Phone: Ophthalmology Comment on above: Diplopia (Primary Dx ); Combined forms of age-related cataract of both eyes; Myopia of both eyes; Presbyopia Start: 04-08-2024 Telephone encounter Deneen nicole MD Work Phone: [facility] [place] Comment on above: requesting order for US Start: 04-08-2024 End: 04-08-2024 Patient encounter procedure Josselin Stevens APRN.POINT OF CARE TECHNICIAN Work Phone: [facility] [place] Comment on above: Cellulitis, unspecif ied cellulitis site (Primary Dx); Leukocytosis, unspecified type; Enlarged lymph node in neck; Dependent edema; Essential hypertension; Skin exam, screening for cancer; Bleeding hemorrhoid Start: 04-05-2024 Telephone encounter Josselin Stevens APRN.POINT OF CARE TECHNICIAN Work Phone: [facility] [place] Comment on above: Results Start: 04-03-2024 ambulatory Josselin Stevens APRN .POINT OF CARE TECHNICIAN Work Phone: [facility] [place] Start: 04-03-2024 Follow-up encounter Josselin Stevens APRN.POINT OF CARE TECHNICIAN Work Phone: [facility] [place] Comment on above: Follow up - squared or even cubed? Start: 04-02-2024 Telephone encounter Josselin Stevens APRN.POINT OF CARE TECHNICIAN Work Phone: [facility] [place] Comment on above: Results Start: 04-01-2024 End: 04-01-2024 Patient encounter procedure Josselin Stevens SALT MACHINE OPERATOR.POINT OF CARE TECHNICIAN Work Phone: [facility] [place] Comment on above: Other fatigue (Prima ry Dx); Enlarged lymph node in neck; Sore throat; Acute non-recurrent sinusitis, unspecified location Start: 03-31-2024 ambulatory Josselin Stevens APRN .POINT OF CARE TECHNICIAN Work Phone: [facility] [place] Comment on above: Lymphatic infection Start: 03-31-2024 Telephone encounter Sugey kenny SALT MACHINE OPERATOR.POINT OF CARE TECHNICIAN Work Phone: [facility] [place] Comment on above: Question; Requesting copy of US order Start: 03-31-2024 End: 03-31-2024 Patient encounter procedure Sugey Salguero APRN.POINT OF CARE TECHNICIAN Work Phone: [facility] Comment on above: Sore throat (Primary Dx); Enlarged lymph node in neck; Fatigue, unspecified type Start: 03-02-2024 End: 03-02-2024 ambulatory Guanakito Golias PT Work Phone: [facility] Comment on above: Closed fracture of h ead of right humerus with routine healing (Primary Dx) Start: 02-27-2024 End: 02-27-2024 ambulatory Josephine Kashuba DIRECTOR OF FINANCIAL AID Work Phone: [facility] Comment on above: Closed fracture of h ead of right humerus with routine healing (Primary Dx) Start: 02-18-2024 End: 02-18-2024 ambulatory Guanakito Golias PT Work Phone: [facility] Comment on above: Closed fracture of h ead of right humerus with routine healing (Primary Dx) Refill Request Start: 02-04-2024 End: 02-04-2024 ambulatory Guanakito Golias PT Work Phone: [facility] Comment on above: Closed fracture of h ead of right humerus with routine healing (Primary Dx) Refill Request Start: 01-27-2024 End: 01-27-2024 ambulatory Guanakito Golias PT Work Phone: [facility] Comment on above: Closed fracture of h ead of right humerus with routine healing (Primary Dx) Start: 01-21-2024 End: 01-21-2024 ambulatory Josephine Kashuba DIRECTOR OF FINANCIAL AID Work Phone: [facility] Comment on above: Closed fracture of h ead of right humerus with routine healing (Primary Dx) Start: 01-09-2024 End: 01-09-2024 ambulatory Josephine Kashuba DIRECTOR OF FINANCIAL AID Work Phone: [facility] Comment on above: Closed fracture of h ead of right humerus with routine healing (Primary Dx) Start: 01-07-2024 End: 01-07-2024 ambulatory Guanakito Reyna PT Work Phone: [place] [facility] Physical Therapy Comment on above: Fracture of humeral head, right, closed, initial encounter; Closed fracture of head of right humerus with routine healing Start: 12-23-2023 Telephone encounter Torin dutton MD Work Phone: Orthopaedics Comment on above: Patient Question Start: 12-15-2023 End: 12-15-2023 Patient encounter procedure Torin Maza MD Work Phone: Orthopaedics Comment on above: Closed fracture of h ead of right humerus with routine healing (Primary Dx) Start: 12-09-2023 ambulatory Usama Bhakta nicole SALT MACHINE OPERATOR.POINT OF CARE TECHNICIAN Work Phone: Orthopedics Comment on above: Xrays on Nov 03 Start: 12-09-2023 Telephone encounter Deneen nicole MD Work Phone: [address] [place] [address] Start: 12-08-2023 End: 12-08-2023 Subsequent hospital visit by physician Xr [facility] [place] [facility] Work Phone: Radiology Comment on above: Pain [R52] Start: 12-06-2023 ambulatory Josselin Stevens SALT MACHINE OPERATOR .POINT OF CARE TECHNICIAN Work Phone: [facility] [place] Comment on above: Schedule Start: 12-01-2023 End: 12-01-2023 Patient encounter procedure Mira Joseph MD Work Phone: OB/Gynecology Comment on above: Encounter for gyneco logical examination (general) (routine) without abnormal findings (Primary Dx); Almost entirely fatty tissue of both breasts on mammography; Breast cancer screening by mammogram; BMI 40.0-44.9, adult ([facility]) Start: 12-01-2023 End: 12-01-2023 Patient encounter status Mira Joseph MD Work Phone: [facility] Work Phone: Start: 11-28-2023 ambulatory Caro ladd SALT MACHINE OPERATOR.POINT OF CARE TECHNICIAN Work Phone: [facility] [place] Comment on above: Reports from GI doct or Start: 11-25-2023 ambulatory Jessica Moscoso hire MA [facility] Comment on above: Population Health Na vigation Outreach ([facility]) Start: 11-13-2023 ambulatory Usama Bhakta nicole SALT MACHINE OPERATOR.POINT OF CARE TECHNICIAN Work Phone: Orthopedics Comment on above: Elbow ROM Start: 11-02-2023 Orders Only Usama Bhakta nicole SALT MACHINE OPERATOR.POINT OF CARE TECHNICIAN Work Phone: Orthopaedic Surgery [facility] Comment on above: Pain in joint of rig ht shoulder (Primary Dx) Start: 10-28-2023 End: 10-28-2023 Emergency department patient visit [facility] Work Phone: Start: 09-25-2023 End: 09-25-2023 Patient encounter procedure Josselin Stevens SALT MACHINE OPERATOR.POINT OF CARE TECHNICIAN Work Phone: [facility] [place] Comment on above: Essential hypertensi on (Primary Dx); Hypertriglyceridemia Start: 09-05-2023 End: 09-05-2023 ambulatory Guanakito Golias PT Work Phone: [facility] Comment on above: Bilateral chronic kn ee pain (Primary Dx); Balance problem Start: 09-02-2023 End: 09-02-2023 ambulatory Guanakito Golias PT Work Phone: [facility] Comment on above: Bilateral chronic kn ee pain (Primary Dx); Balance problem Start: 08-22-2023 End: 08-22-2023 ambulatory Josephine Kashuba DIRECTOR OF FINANCIAL AID Work Phone: [facility] Comment on above: Bilateral chronic kn ee pain (Primary Dx); Balance problem Start: 08-15-2023 End: 08-15-2023 ambulatory Josephine Kashuba DIRECTOR OF FINANCIAL AID Work Phone: [facility] Comment on above: Bilateral chronic kn ee pain (Primary Dx); Balance problem Start: 08-12-2023 End: 08-12-2023 ambulatory Guanakito Golias PT Work Phone: [facility] Comment on above: Bilateral chronic kn ee pain (Primary Dx); Balance problem Start: 08-08-2023 End: 08-08-2023 ambulatory Guanakito Golias PT Work Phone: [place] [facility] Physical Therapy Comment on above: Bilateral chronic kn ee pain (Primary Dx); Balance problem Start: 06-26-2023 End: 06-26-2023 Subsequent hospital visit by physician X[facility] [place] Work Phone: Radiology Comment on above: Chronic pain of both knees [M25.561, M25.562, G89.29] Start: 06-26-2023 End: 06-26-2023 Patient encounter procedure Josselin Stevens APRN.POINT OF CARE TECHNICIAN Work Phone: [facility] [place] Comment on above: Essential hypertensi on (Primary Dx); Hypertriglyceridemia; Chronic pain of both knees; Balance problem; Chronic diarrhea Start: 06-02-2023 Refill Josselin Stevens SALT MACHINE OPERATOR .POINT OF CARE TECHNICIAN Work Phone: Internal Medicine [place] Comment on above: Refill Request Start: 05-16-2023 End: 05-16-2023 ambulatory Josselin Stevens APRN.POINT OF CARE TECHNICIAN Work Phone: Internal Medicine [place] Comment on above: COVID (Primary Dx); Essential hypertension; Hypertriglyceridemia Start: 05-16-2023 End: 05-16-2023 Telemedicine consultation with patient Josselin Stevens APRN.POINT OF CARE TECHNICIAN Work Phone: [facility] [place] Start: 05-14-2023 Telephone encounter Deneen nicole MD Work Phone: Internal Medicine [place] Comment on above: Covid Positive Start: 04-30-2023 Refill Annamaria Tennille SALT MACHINE OPERATOR.POINT OF CARE TECHNICIAN Work Phone: OB/Gynecology Comment on above: Refill Request Start: 04-28-2023 Refill Mira Díaz Work Phone: OB/Gynecology Comment on above: Refill Request Start: 04-14-2023 Documentation procedure [facility]og [facility]ena [facility] Start: 04-14-2023 Letter encounter Mammography Coordinator [facility] Department Start: 02-27-2023 Refill Josselin Stevens SALT MACHINE OPERATOR .POINT OF CARE TECHNICIAN Work Phone: Internal Medicine [place] Comment on above: Refill Request Start: 01-15-2023 ambulatory Deneen Díaz Work Phone: Internal Medicine [facility] [place] Start: 01-10-2023 Refill Deneen Díaz Work Phone: Internal Medicine [place] Comment on above: Refill Request Start: 12-12-2022 End: 12-12-2022 Patient encounter procedure Deneen Garcia MD Work Phone: Internal Medicine [place] Comment on above: Uncontrolled hyperte nsion (Primary Dx); Age-related osteoporosis without current pathological fracture; Depression screening; BMI 40.0-44.9, adult (HCC); Hypertriglyceridemia Start: 12-05-2022 ambulatory Deneen Díaz Work Phone: Internal Medicine [place] Comment on above: Blood work Start: 10-09-2022 Refill Deneen Díaz Work Phone: Internal Medicine [place] Comment on above: Refill Request Start: 09-22-2022 Refill Annamaria Orellana APRN.POINT OF CARE TECHNICIAN Work Phone: OB/Gynecology Comment on above: Refill Request Start: 09-19-2022 Patient encounter procedure Josselin Stevens APRN.CNP Work Phone: [facility] Medicine [place] Start: 09-19-2022 Telephone encounter Josselin Stevens APRN.CNP Work Phone: Internal Medicine [place] Comment on above: Results Start: 08-27-2022 Refill Josselin CourtneyPOINT OF CARE TECHNICIAN Work Phone: Internal Medicine [place] Comment on above: Refill Request Start: 08-01-2022 End: 08-01-2022 Patient encounter procedure Dariel Patel OD Work Phone: Ophthalmology Comment on above: Diplopia (Primary Dx ); Combined forms of age-related cataract of both eyes; Myopia of both eyes; Presbyopia; Regular astigmatism of both eyes Start: 07-29-2022 Refill Deneen Díaz Work Phone: [facility] [place] Comment on above: Refill Request Start: 07-28-2022 Refill Josselin Older SALT MACHINE OPERATOR .POINT OF CARE TECHNICIAN Work Phone: Internal Medicine [place] Comment on above: Refill Request Start: 07-27-2022 ambulatory Mira Díaz Work Phone: OB/Gynecology Comment on above: Use of prescribed me dications Start: 07-23-2022 End: 07-23-2022 Patient encounter procedure Deneen Garcia MD Work Phone: Internal Medicine [place] Comment on above: Medicare annual well ness visit, subsequent (Primary Dx) Start: 07-15-2022 Refill Deneen Díaz Work Phone: Internal Medicine [place] Comment on above: Refill Request Start: 04-22-2022 ambulatory Usama Stone RN NURSE AUTO BODY REPAIR TECHNICIAN Comment on above: Covid19 Concern Start: 04-10-2022 End: 04-10-2022 Patient encounter procedure Deneen Garica MD Work Phone: Internal Medicine [place] Comment on above: Essential hypertensi on (Primary Dx); Insomnia, unspecified type; BMI 40.0-44.9, adult ([facility]) Start: 03-30-2022 End: 03-30-2022 Patient encounter procedure Martina Gonzales APRN.POINT OF CARE TECHNICIAN Work Phone: [facility] Comment on above: Essential hypertensi on (Primary Dx); Headache, unspecified headache type Refill Request Start: 03-20-2022 Refill Mira Díaz Work Phone: OB/Gynecology Comment on above: Refill Request Start: 03-10-2022 Refill Josselin CourtneyPOINT OF CARE TECHNICIAN Work Phone: Internal Medicine [place] Comment on above: Refill Request Start: 02-08-2022 End: 02-08-2022 Patient encounter procedure Mira Joseph MD Work Phone: OB/Gynecology Comment on above: Urinary urgency (Silke usama Dx); Urge incontinence; Vulvar atrophy; Breast cancer screening by mammogram Start: 02-08-2022 End: 02-08-2022 Subsequent hospital visit by physician [facility] Work Phone: Radiology Comment on above: Pelvic pain in femal e [R10.2] Start: 01-21-2022 End: 01-21-2022 Patient encounter procedure Mira Joseph MD Work Phone: OB/Gynecology Comment on above: Pelvic pain in femal e (Primary Dx); Vulvar atrophy; Vaginal atrophy; Urge incontinence; Epidermoid cyst; Cystocele, midline Start: 01-10-2022 Refill Deneen Díaz Work Phone: Internal Medicine [place] Comment on above: Refill Request Start: 02-16-2019 End: 02-16-2019 Patient encounter procedure [facility] Procedures Date Procedure Procedure Detail Performing Clinician Start: 11-26-2024 Adult depression scr eening assessment Deneen Garcia MD Work Phone: Start: 11-19-2024 Lipid 1996 panel - S yesica or Plasma Screen Wstr Start: 05-13-2024 Us soft tissue head & neck real time imge bora Mayes Podlogar SALT MACHINE OPERATOR.POINT OF CARE TECHNICIAN Work Phone: Start: 04-23-2024 Lipid 1996 panel - S yesica or Plasma Deneen Garcia MD Work Phone: Start: 10-28-2023 Plain X-ray of shoulder Start: 06-26-2023 Radiologic exam knee complete 4/more views Josselin Stevens SALT MACHINE OPERATOR.POINT OF CARE TECHNICIAN Work Phone: Start: 06-24-2023 Lipid 1996 panel - S yesica or Plasma Josselin Stevens SALT MACHINE OPERATOR.POINT OF CARE TECHNICIAN Work Phone: Start: 04-14-2023 Mammography Mammograph y Coordinator Start: 02-21-2022 Colonoscopy Mira marquez MD Work Phone: Start: 02-08-2022 Us transvaginal Mira otto MD Work Phone: Start: 01-21-2022 Urnls dip stick/tabl et reagent auto microscopy Mira Joseph MD Work Phone: Start: 03-01-2021 Adult depression scr eening assessment Deneen Garcia MD Work Phone: Start: 02-19-2021 Mammography Deneen nicole MD Work Phone: Start: 12-31-2012 Colonoscopy Deneen nicole MD Work Phone: Plan of Treatment Date Care Activity Detail Author Start: 02-22-2032 Colonoscopy COLONOSCOPY [facility] Start: 02-22-2032 COLORECTAL CANCER SCREENING COLORECTAL CANCER SCREENING [facility] Start: 02-22-2032 Screening for malignant neoplasm of colon [facility] Start: 11-19-2029 Lipid panel Lipid Screening [facility] Start: 04-23-2029 Lipid panel Lipid Screening [facility] Start: 06-24-2028 Lipid 1996 panel - Serum or Plasma Lipid Screening [facility] Start: 06-24-2028 Lipid panel Lipid Screening [facility] Start: 04-27-2028 Diabetes Screening Diabetes Screening [facility] Start: 12-06-2027 LIPID SCREEN LIPID SCREEN [facility] Start: 11-19-2027 Diabetes Screening Diabetes Screening [facility] Start: 04-23-2027 Diabetes Screening Diabetes Screening [facility] Start: 04-01-2027 Diabetes Screening Diabetes Screening [facility] Start: 07-01-2026 Annual PCP Team Chronic Disease Visit Annual PCP Team Chronic Disease Visit [facility] Start: 06-24-2026 Diabetes Screening Diabetes Screening [facility] Start: 05-30-2026 End: 05-30-2026 Patient encounter procedure 05/30/2026 1:30 PM EDT Office Visit [facility] Ophthalmology [address] [place], [place] [id number] Dariel Patel, OD [address] [place] [address] Diagnostics, [facility] [address] [address] complete eye exam with refraction (prior to dilation). Ophthalmology Comment on above: complete eye exam with refraction (prior to dilation). Start: 05-06-2026 Annual PCP Team Chronic Disease Visit Annual PCP Team Chronic Disease Visit [facility] Start: 03-24-2026 Annual PCP Team Chronic Disease Visit Annual PCP Team Chronic Disease Visit [facility] Start: 03-24-2026 RSV Vaccine (1 - Risk 60-74 years 1-dose series) RSV Vaccine (1 - Risk 60-74 years 1-dose series) [facility] Comment on above: Postponed from 2011 (Declined at t his time) Start: 03-01-2026 LIPID SCREEN LIPID SCREEN [facility] Start: 12-06-2025 DIABETES SCREEN DIABETES SCREEN [facility] Start: 11-26-2025 Annual PCP Team Chronic Disease Visit Annual PCP Team Chronic Disease Visit [facility] Start: 11-26-2025 Anxiety Screening Anxiety Screening [facility] Start: 11-26-2025 Depression Screening Depression Screening [facility] Start: 11-19-2025 Screening for malignant neoplasm of breast Mammogram Screening [facility] Start: 08-31-2025 End: 08-31-2025 Patient encounter procedure 08/31/2025 3:00 PM EST Office Visit [facility] [place] [address] [facility] [place] [address] Josselin Stevens APRN.POINT OF CARE TECHNICIAN [address] [place] [address] wellness exam [facility] [place] Comment on above: wellness exam Start: 07-01-2025 End: 07-01-2025 Patient encounter procedure 07/01/2025 3:00 PM EDT Office Visit [facility] Medicine [place] [address] [facility] [place] [address] Deneen Garcia MD [address] [place] [address] 3 month f/u [facility] [place] Comment on above: 3 month f/u Start: 06-20-2025 Influenza vaccination Influenza Vaccine (#1) [facility] Start: 05-30-2025 End: 05-30-2025 Patient encounter procedure 05/30/2025 2:15 PM EDT Office Visit [facility] Ophthalmology [address] [place] [address] Dariel Patel, OD [address] [place] [address] Diagnostics, [facility] [address] [place] [address] [place] [address] To correct prescription, if needed Ophthalmology Comment on above: To correct prescription, if needed Start: 05-26-2025 Annual PCP Team Chronic Disease Visit Annual PCP Team Chronic Disease Visit [facility] Start: 05-04-2025 Annual PCP Team Chronic Disease Visit Annual PCP Team Chronic Disease Visit [facility] Start: 04-23-2025 Annual PCP Team Chronic Disease Visit Annual PCP Team Chronic Disease Visit [facility] Start: 04-14-2025 End: 04-14-2025 Patient encounter procedure 04/14/2025 1:45 PM EDT Office Visit [facility] Ophthalmology [address] [place] [address] Dariel Patel, OD [address] [place] [address] Complete eye exam Ophthalmology Comment on above: Complete eye exam Start: 04-08-2025 Annual PCP Team Chronic Disease Visit Annual PCP Team Chronic Disease Visit [facility] Start: 04-01-2025 Annual PCP Team Chronic Disease Visit Annual PCP Team Chronic Disease Visit [facility] Start: 04-01-2025 BP Controlled (<130/80) BP Controlled (<130/80) [facility] Start: 03-31-2025 Annual PCP Team Chronic Disease Visit Annual PCP Team Chronic Disease Visit [facility] Start: 03-24-2025 End: 06-23-2025 Basic metabolic 2000 panel - Serum or Plasma BASIC METABOLIC PANEL Lab Routine Essential hypertension Expected: 03/24/2025, Expires: 06/23/2025 [facility] Work Phone: Comment on above: Expected: 03/24/2025, Expires: Start: 03-24-2025 End: 03-24-2025 Patient encounter procedure 03/24/2025 10:20 AM EDT Office Visit [facility] [place] [address] [place] [address] Deneen Garcia MD [address] [place] [address] 3 Month F/U [facility] [place] Comment on above: 3 Month F/U Start: 02-22-2025 End: 02-22-2025 Patient encounter procedure 02/22/2025 1:40 PM EDT Office Visit [facility] [place] [address] [place] [address] Deneen Garcia MD [address] [place] [address] 3 Month F/U [facility] [place] Comment on above: 3 Month F/U Start: 01-14-2025 DIABETES SCREEN DIABETES SCREEN [facility] Start: 01-03-2025 Covid-19 Vaccine () Covid-19 Vaccine () [facility] Start: 12-01-2024 BP Controlled (<130/80) BP Controlled (<130/80) [facility] Start: 11-26-2024 End: 11-26-2024 Patient encounter procedure 11/26/2024 1:40 PM EST Office Visit [facility] [place] [address] [place] [address] Deneen Garcia MD [address] [place] [address] 6 mo follow up, HTN [facility] [place] Comment on above: 6 mo follow up, HTN Start: 11-19-2024 End: 11-19-2024 Patient encounter procedure 11/19/2024 12:30 PM EST Appointment Mammogram [address] [place] [address] Mammogram Start: 11-19-2024 End: 11-19-2024 ambulatory 11/19/2024 11:45 AM EST Results Only [place] [facility] Draw Station [address] [place] [address] [place] [facility] Station Start: 11-17-2024 End: 02-16-2025 25-hydroxyvitamin D3 [Mass/volume] in Serum or Plasma VITAMIN D 25 HYDROXY Lab Routine Vitamin D deficiency Expected: 11/17/2024, Expires: 02/16/2025 [facility] Comment on above: Expected: 11/17/2024, Expires: Start: 11-17-2024 End: 02-16-2025 CBC W Auto Differential panel - Blood COMPLETE BLOOD COUNT AND DIFFERENTIAL Lab Routine Vitamin B12 deficiency Expected: 11/17/2024, Expires: 02/16/2025 [facility] Comment on above: Expected: 11/17/2024, Expires: Start: 11-17-2024 End: 02-16-2025 Cobalamin (Vitamin B12) [Mass/volume] in Serum or Plasma VITAMIN B12 Lab Routine Vitamin B12 deficiency Expected: 11/17/2024, Expires: 02/16/2025 [facility] Work Phone: Comment on above: Expected: 11/17/2024, Expires: Start: 11-17-2024 End: 02-16-2025 Comprehensive metabolic 2000 panel - Serum or Plasma COMPREHENSIVE METABOLIC PANEL Lab Routine Diabetes mellitus screening Expected: 11/17/2024, Expires: 02/16/2025 [facility] Comment on above: Expected: 11/17/2024, Expires: Start: 11-17-2024 End: 02-16-2025 Lipid 1996 panel - Serum or Plasma LIPID PANEL BASIC Lab Routine Hyperlipidemia, mixed Expected: 11/17/2024, Expires: 02/16/2025 [facility] Comment on above: Expected: 11/17/2024, Expires: Start: 10-28-2024 Annual PCP Team Chronic Disease Visit Annual PCP Team Chronic Disease Visit [facility] Start: 10-20-2024 Advance Directive Discussion Advance Directive Discussion [facility] Start: 10-20-2024 Medicare Advantage Annual Wellness Visit Medicare Advantage Annual Wellness Visit [facility] Start: 09-26-2024 Urine microalbumin profile [facility] Start: 09-25-2024 Annual PCP Team Chronic Disease Visit Annual PCP Team Chronic Disease Visit [facility] Start: 09-25-2024 BP Controlled (<130/80) BP Controlled (<130/80) [facility] Start: 09-20-2024 End: 01-08-2025 BD DXA TRABECULAR BONE SCORE (TBS) BD DXA TRABECULAR BONE SCORE (TBS) Radiology Routine Age-related osteoporosis without current pathological fracture Expected: 09/20/2024 (Approximate), Expires: 01/08/2025 [facility] Work Phone: Comment on above: Expected: 09/20/2024 (Approximate), Expi res: 01/08/2025 Start: 09-20-2024 End: 01-08-2025 DXA Skeletal system.axial Views for bone density DXA-AXIAL SKELETON Radiology Routine Age-related osteoporosis without current pathological fracture Expected: 09/20/2024 (Approximate), Expires: 01/08/2025 [facility] Work Phone: Comment on above: Expected: 09/20/2024 (Approximate), Expi res: 01/08/2025 Start: 06-26-2024 Annual PCP Team Chronic Disease Visit Annual PCP Team Chronic Disease Visit [facility] Start: 06-22-2024 End: 06-22-2024 Patient encounter procedure 06/22/2024 1:30 PM EDT Office Visit Dermatology [address] [id number] Elayne Bull, VIVI.POINT OF CARE TECHNICIAN [address] [place] [address] Skin exam, screening for cancer [Z12.83] Dermatology Comment on above: Skin exam, screening for cancer [Z12.83] Start: 06-20-2024 Covid-19 Vaccine ( season) Covid-19 Vaccine () [facility] Start: 06-20-2024 Covid-19 Vaccine ( season) Covid-19 Vaccine ( season) [facility] Start: 06-20-2024 [facility] Start: 05-27-2024 End: 05-27-2024 Patient encounter procedure 05/27/2024 9:00 AM EDT Office Visit [facility] Ophthalmology [address] [place], [place] [id number] Dariel Patel, OD [address] [place] [address] adjust the prescription or the prism in the glasses Ophthalmology Comment on above: adjust the prescription or the prism in the glasses Start: 05-26-2024 End: 05-26-2024 Patient encounter procedure [facility] [place] Comment on above: geriatrics Start: 05-16-2024 ANNUAL PCP TEAM CHRONIC DISEASE VISIT ANNUAL PCP TEAM CHRONIC DISEASE VISIT [facility] Start: 05-13-2024 End: 05-13-2024 Patient encounter procedure 05/13/2024 4:00 PM EDT Appointment Radiology [address] [facility] [place] [address] Enlarged lymph node in neck [R59.0] Radiology Comment on above: Enlarged lymph node in neck [R59.0] Start: 05-04-2024 End: 08-03-2024 Folate [Mass/volume] in Serum or Plasma [facility] Comment on above: Expected: 05/04/2024, Expires: Start: 05-04-2024 End: 08-03-2024 Methylmalonate [Moles/volume] in Serum or Plasma [facility] Work Phone: Comment on above: Expected: 05/04/2024, Expires: Start: 05-04-2024 End: 05-04-2024 Patient encounter procedure 05/04/2024 1:40 PM EDT Office Visit [facility] Medicine [place] [address] [facility] [place] [address] Deneen Garcia MD [address] [place] [address] AWV [facility] [place] Comment on above: AWV Start: 04-27-2024 End: 04-27-2024 ambulatory 04/27/2024 11:45 AM EDT [facility] [address] [place] [address] [facility] Start: 04-23-2024 End: 07-23-2024 25-hydroxyvitamin D3 [Mass/volume] in Serum or Plasma [facility] Comment on above: Expected: 04/23/2024, Expires: Start: 04-23-2024 End: 07-23-2024 Borrelia burgdorferi IgG and IgM panel - Serum [facility] Comment on above: Expected: 04/23/2024, Expires: Start: 04-23-2024 End: 07-23-2024 CBC W Auto Differential panel - Blood [facility] Work Phone: Comment on above: Expected: 04/23/2024, Expires: Start: 04-23-2024 End: 07-23-2024 Cobalamin (Vitamin B12) [Mass/volume] in Serum or Plasma [facility] Comment on above: Expected: 04/23/2024, Expires: Start: 04-23-2024 End: 07-23-2024 Ferritin [Mass/volume] in Serum or Plasma [facility] Comment on above: Expected: 04/23/2024, Expires: Start: 04-23-2024 End: 07-23-2024 Iron and Iron binding capacity panel - Serum or Plasma [facility] Comment on above: Expected: 04/23/2024, Expires: Start: 04-23-2024 End: 07-23-2024 Magnesium [Mass/volume] in Serum or Plasma [facility] Comment on above: Expected: 04/23/2024, Expires: Start: 04-23-2024 End: 07-23-2024 Thyrotropin [Units/volume] in Serum or Plasma [facility] Comment on above: Expected: 04/23/2024, Expires: Start: 04-23-2024 End: 04-23-2024 Patient encounter procedure Mammogram Comment on above: BHARGAVI SCREENING W SHELLY fatigue, weak x 2 mo nth getting worse, cellulitis( See phone encunter) Start: 04-21-2024 End: 04-21-2024 Patient encounter procedure 04/21/2024 10:45 AM EDT Appointment Radiology [address] [place], [place] [id number] Enlarged lymph node in neck [R59.0] Radiology Comment on above: Enlarged lymph node in neck [R59.0] Start: 04-15-2024 End: 04-15-2024 Patient encounter procedure 04/15/2024 1:45 PM EDT Appointment Radiology [address] [place] [address] Enlarged lymph node in neck [R59.0] Radiology Comment on above: Enlarged lymph node in neck [R59.0] Start: 04-14-2024 Mammography [facility] Start: 04-14-2024 Screening for malignant neoplasm of breast Mammogram Screening [facility] Start: 04-14-2024 End: 04-30-2025 US Head and neck soft tissue US HEAD/NECK SOFT TISSUE OTHER Radiology Routine Enlarged lymph node in neck Expected: 04/14/2024, Expires: 04/30/2025 [facility] Work Phone: Comment on above: Expected: 04/14/2024, Expires: Start: 04-13-2024 End: 04-13-2024 Patient encounter procedure 04/13/2024 1:45 PM EDT Office Visit [facility] Ophthalmology [address] [place] [address] Dariel Patel, OD [address] [place] [address] New Rx for glasses Ophthalmology Comment on above: New Rx for glasses Start: 04-08-2024 End: 04-08-2024 Patient encounter procedure 04/08/2024 1:00 PM EDT Office Visit [facility] [place] [address] [place] [address] Josselin Stevens APRN.POINT OF CARE TECHNICIAN [address] [place] [address] 6 month follow up [facility] Medicine [place] Comment on above: 6 month follow up Start: 04-01-2024 End: 07-01-2024 Comprehensive metabolic 2000 panel - Serum or Plasma [facility] Work Phone: Comment on above: Expected: 04/01/2024, Expires: Start: 04-01-2024 End: 04-01-2024 Patient encounter procedure 04/01/2024 11:20 AM EDT Office Visit [facility] [place] [address] [place] [address] Josselin Stevens APRN.POINT OF CARE TECHNICIAN [address] [place] [address] Right Should Pain [facility] [place] Comment on above: Right Should Pain Start: 03-20-2024 End: 06-19-2024 CBC panel - Blood by Automated count CBC Lab Routine Essential hypertension Expected: 03/20/2024 (Approximate), Expires: 06/19/2024 [facility] Work Phone: Comment on above: Expected: 03/20/2024 (Approximate), Expi res: 06/19/2024 Start: 03-20-2024 End: 06-19-2024 Comprehensive metabolic 2000 panel - Serum or Plasma COMP METABOLIC PANEL Lab Routine Essential hypertension Hypertriglyceridemia Expected: 03/20/2024 (Approximate), Expires: 06/19/2024 [facility] Work Phone: Comment on above: Expected: 03/20/2024 (Approximate), Expi res: 06/19/2024 Start: 03-20-2024 End: 06-19-2024 Lipid 1996 panel - Serum or Plasma LIPID PANEL BASIC Lab Routine Hypertriglyceridemia Expected: 03/20/2024 (Approximate), Expires: 06/19/2024 [facility] Work Phone: Comment on above: Expected: 03/20/2024 (Approximate), Expi res: 06/19/2024 Start: 03-09-2024 End: 03-09-2024 ambulatory 03/09/2024 1:15 PM EDT OT/PT/Speech Visit [place] [facility] Physical Therapy [address] [place] [address] Josephine Gonzalez, DIRECTOR OF FINANCIAL AID [address] [place] [address] S42.291A - Fracture of humeral head, right, closed [facility] Comment on above: S42.291A - Fracture of humeral head, rig ht, closed Start: 03-05-2024 End: 03-05-2024 ambulatory 03/05/2024 1:00 PM EDT OT/PT/Speech Visit [facility] [address] [place] [address] Golias, Guanakito, PT [address] [place] [address] S42.291A - Fracture of humeral head, right, closed [facility] Comment on above: S42.291A - Fracture of humeral head, rig ht, closed Start: 03-02-2024 End: 03-02-2024 ambulatory 03/02/2024 2:00 PM EDT OT/PT/Speech Visit [facility] [address] [place] [address] Golias, Guanakito, PT [address] [place] [address] S42.291A - Fracture of humeral head, right, closed [facility] Comment on above: S42.291A - Fracture of humeral head, rig ht, closed Start: 03-01-2024 DIABETES SCREEN DIABETES SCREEN [facility] Start: 01-09-2024 Covid-19 Vaccine () Covid-19 Vaccine () [facility] Start: 12-12-2023 ANNUAL PCP TEAM CHRONIC DISEASE VISIT ANNUAL PCP TEAM CHRONIC DISEASE VISIT [facility] Start: 10-28-2023 [facility] Start: 10-20-2023 Advance Directive Discussion Advance Directive Discussion [facility] Start: 10-20-2023 Behavioral Health Screening Behavioral Health Screening [facility] Start: 10-20-2023 Depression Assessment Depression Assessment [facility] Start: 07-23-2023 ANNUAL PCP TEAM CHRONIC DISEASE VISIT ANNUAL PCP TEAM CHRONIC DISEASE VISIT [facility] Start: 07-23-2023 BP CONTROLLED (<130/80) BP CONTROLLED (<130/80) [facility] Start: 06-20-2023 Covid-19 Vaccine ( season) Covid-19 Vaccine () [facility] Start: 06-20-2023 Influenza vaccination [facility] Start: 06-11-2023 End: 08-11-2023 Lipid 1996 panel - Serum or Plasma LIPID PANEL BASIC Lab Routine Hypertriglyceridemia Expected: 06/11/2023, Expires: 08/11/2023 [facility] Work Phone: Comment on above: Expected: 06/11/2023, Expires: 3 Start: 05-16-2023 End: 07-16-2023 CBC W Auto Differential panel - Blood CBC + DIFF Lab Routine Essential hypertension Expected: 05/16/2023, Expires: 07/16/2023 [facility] Work Phone: Comment on above: Expected: 05/16/2023, Expires: 3 Start: 05-16-2023 End: 07-16-2023 Comprehensive metabolic 2000 panel - Serum or Plasma COMP METABOLIC PANEL Lab Routine Essential hypertension Hypertriglyceridemia Expected: 05/16/2023, Expires: 07/16/2023 [facility] Work Phone: Comment on above: Expected: 05/16/2023, Expires: 3 Start: 05-16-2023 End: 07-16-2023 Lipid 1996 panel - Serum or Plasma LIPID PANEL BASIC Lab Routine Hypertriglyceridemia Expected: 05/16/2023, Expires: 07/16/2023 [facility] Work Phone: Comment on above: Expected: 05/16/2023, Expires: 3 Start: 04-10-2023 ANNUAL PCP TEAM CHRONIC DISEASE VISIT ANNUAL PCP TEAM CHRONIC DISEASE VISIT [facility] Start: 01-16-2023 ANNUAL PCP TEAM CHRONIC DISEASE VISIT ANNUAL PCP TEAM CHRONIC DISEASE VISIT [facility] Start: 12-31-2022 Colonoscopy COLONOSCOPY [facility] Start: 12-31-2022 COLORECTAL CANCER SCREENING COLORECTAL CANCER SCREENING [facility] Start: 12-02-2022 COVID-19 VACCINE (7 - Moderna series) COVID-19 VACCINE (7 - Moderna series) [facility] Start: 11-20-2022 End: 01-20-2023 25-hydroxyvitamin D3 [Mass/volume] in Serum or Plasma VITAMIN D 25 HYDROXY Lab Routine Osteopenia, unspecified location Vitamin D deficiency Expected: 11/20/2022 (Approximate), Expires: 01/20/2023 [facility] Work Phone: Comment on above: Expected: 11/20/2022 (Approximate), Expi res: 01/20/2023 Start: 11-20-2022 End: 01-20-2023 CBC W Auto Differential panel - Blood CBC + DIFF Lab Routine Essential hypertension Annual physical exam Expected: 11/20/2022 (Approximate), Expires: 01/20/2023 [facility] Work Phone: Comment on above: Expected: 11/20/2022 (Approximate), Expi res: 01/20/2023 Start: 11-20-2022 End: 01-20-2023 Comprehensive metabolic 2000 panel - Serum or Plasma COMP METABOLIC PANEL Lab Routine Essential hypertension Annual physical exam Osteopenia, unspecified location Expected: 11/20/2022 (Approximate), Expires: 01/20/2023 [facility] Work Phone: Comment on above: Expected: 11/20/2022 (Approximate), Expi res: 01/20/2023 Start: 11-20-2022 End: 01-20-2023 Lipid 1996 panel - Serum or Plasma LIPID PANEL BASIC Lab Routine Annual physical exam Lipid screening Expected: 11/20/2022 (Approximate), Expires: 01/20/2023 [facility] Work Phone: Comment on above: Expected: 11/20/2022 (Approximate), Expi res: 01/20/2023 Start: 10-20-2022 ADVANCE DIRECTIVE DISCUSSION ADVANCE DIRECTIVE DISCUSSION [facility] Start: 10-20-2022 DEPRESSION ASSESSMENT DEPRESSION ASSESSMENT [facility] Start: 07-13-2022 COVID-19 VACCINE (4 - Booster for Moderna series) COVID-19 VACCINE (4 - Booster for Moderna series) [facility] Start: 07-02-2022 ANNUAL PCP TEAM CHRONIC DISEASE VISIT ANNUAL PCP TEAM CHRONIC DISEASE VISIT [facility] Start: 06-20-2022 Influenza vaccination [facility] Start: 05-09-2022 COVID-19 VACCINE (5 - Booster for Moderna series) COVID-19 VACCINE (5 - Booster for Moderna series) [facility] Start: 04-18-2022 Influenza vaccination INFLUENZA (#1) [facility] Comment on above: Postponed from 06/20/2021 (Declined at t his time) Start: 03-01-2022 Adult depression screening assessment DEPRESSION SCREENING [facility] Start: 02-19-2022 Mammography MAMMOGRAM [facility] Start: 10-20-2021 ADVANCE DIRECTIVE DISCUSSION ADVANCE DIRECTIVE DISCUSSION [facility] Start: 10-20-2021 DEPRESSION ASSESSMENT DEPRESSION ASSESSMENT [facility] Start: 06-20-2021 COVID-19 VACCINE (3 - Booster for Moderna series) COVID-19 VACCINE (3 - Booster for Moderna series) [facility] Start: 2011 RSV Vaccine (1 - 1-dose 60+ series) RSV Vaccine (1 - 1-dose 60+ series) [facility] Start: 2011 RSV Vaccine (1 - Risk 60-74 years 1-dose series) RSV Vaccine (1 - Risk 60-74 years 1-dose series) [facility] Start: 1996 COLOGUARD (FIT-DNA) COLOGUARD (FIT-DNA) [facility] Start: [address] COLONOGRAPHY [facility] Start: 1996 FECAL OCCULT BLOOD FECAL OCCULT BLOOD [facility] Start: 1996 Screening for malignant neoplasm of colon [facility] Start: 1996 SIGMOIDOSCOPY SIGMOIDOSCOPY [facility] Start: 1969 Anxiety Screening Anxiety Screening [facility] Start: 1969 BP CONTROLLED (<130/80) BP CONTROLLED (<130/80) [facility] Start: 1969 Depression Screening Depression Screening [facility] Ambulatory bp mntr w/sw 24 hr+ rec scan alba i&r AMBULATORY BP MONITORING Cardiology Routine Essential hypertension Ordered: 11/26/2024 [facility] Work Phone: Comment on above: Ordered: 11/26/2024 Bacteria identified in Urine by Culture URINE CULTURE Microbiology Routine Urge incontinence 01/21/2022 12:00 PM EDT [facility] Work Phone: CBC W Auto Differential panel - Blood COMPLETE BLOOD COUNT AND DIFFERENTIAL Lab Routine Other fatigue Enlarged lymph node in neck Sore throat 04/01/2024 12:06 PM EDT [facility] End: 12-30-2024 DBT Breast - bilateral screening BHARGAVI SCREENING W SHELLY Radiology Routine Almost entirely fatty tissue of both breasts on mammography Breast cancer screening by mammogram 1 Occurrences starting 12/01/2023 until 12/30/2024 [facility] Work Phone: Comment on above: 1 Occurrences starting 12/01/2023 until 12/30/2024 End: 01-11-2024 DXA-AXIAL SKELETON DXA-AXIAL SKELETON Radiology Routine Age-related osteoporosis without current pathological fracture 1 Occurrences starting 12/12/2022 until 01/11/2024 [facility] Work Phone: Comment on above: 1 Occurrences starting 12/12/2022 until 01/11/2024 End: 02-14-2024 BHARGAVI SCREENING BHARGAVI SCREENING Radiology Routine Encounter for screening mammogram for breast cancer 1 Occurrences starting 01/15/2023 until 02/14/2024 [facility] Work Phone: Comment on above: 1 Occurrences starting 01/15/2023 until 02/14/2024 End: 11-19-2024 MG Breast Screening [facility] Work Phone: Comment on above: ONCE for 1 Occurrences starting 11/19/19 until 11/19/2024 Patient Education ED Mechanical Fall ED Fracture, Shoulder [facility] Work Phone: Patient referral [facility] Work Phone: PELVIC US WHI PELVIC US WHI An c Imaging Routine Pelvic pain in female 1 Occurrences starting 01/21/2022 [facility] Work Phone: Comment on above: 1 Occurrences starting 01/21/2022 End: 03-10-2023 Screening mammography bi 2-view breast inc cad BHARGAVI SCREENING Radiology Routine Breast cancer screening by mammogram 1 Occurrences starting 02/08/2022 until 03/10/2023 [facility] Work Phone: Comment on above: 1 Occurrences starting 02/08/2022 until 03/10/2023 End: 02-20-2023 Us transvaginal US FEMALE PELVIS TRANSVAG Radiology Routine Pelvic pain in female 1 Occurrences starting 01/21/2022 until 02/20/2023 [facility] Work Phone: Comment on above: 1 Occurrences starting 01/21/2022 until 02/20/2023 End: 06-05-2026 XR Knee - left 4 Views XR KNEE GENERAL 4V AP BOTH/PA BOTH/LAT/MERC LEFT Radiology Routine Acute pain of left knee 1 Occurrences starting 05/06/2025 until 06/05/2026 [facility] Work Phone: Comment on above: 1 Occurrences starting 05/06/2025 until 06/05/2026 XR Knee - left 4 Views XR KNEE G ENERAL 4V AP BOTH/PA BOTH/LAT/MERC LEFT Radiology Routine Acute pain of left knee 05/06/2025 3:00 PM EDT [facility] XR Shoulder - right 3 Views XR SHOULDER GENERAL 3V OR MORE AP/TRUE AP/OTHER RIGHT Radiology Routine Pain 12/08/2023 12:58 PM EST [facility] Work Phone: End: 12-01-2024 XR SHOULDER GENERAL 3V OR MORE AP/TRUE AP/OTHER RIGHT XR SHOULDER GENERAL 3V OR MORE AP/TRUE AP/OTHER RIGHT Radiology Routine Pain in joint of right shoulder 1 Occurrences starting 11/02/2023 until 12/01/2024 [facility] Work Phone: Comment on above: 1 Occurrences starting 11/02/2023 until 12/01/2024 [facility] Immunizations Immunization Date Immunization Notes Care Provider Rosas garay 07-06-2024 influenza virus vacc ine, unspecified formulation Josselin Older SALT MACHINE OPERATOR.POINT OF CARE TECHNICIAN Work Phone: [facility] 08-14-2023 influenza virus vacc ine, unspecified formulation Deneen Garcia MD Work Phone: [facility] 09-16-2022 influenza, high dose seasonal, preservative-free Josselin Older SALT MACHINE OPERATOR.POINT OF CARE TECHNICIAN Work Phone: [facility] 09-16-2022 influenza virus vacc ine, unspecified formulation Josselin Older SALT MACHINE OPERATOR.POINT OF CARE TECHNICIAN Work Phone: [facility] 03-14-2022 COVID-19 original vaccine, full dose, monovalent (MODERNA) Deneen Garcia MD Work Phone: [facility] 03-12-2022 COVID-19 vaccine, ag e 12+ yr ([facility]) Mira Joseph MD Work Phone: [facility] Work Phone: 09-07-2021 COVID-19 vaccine, fu ll dose (MODERNA) Martina Gonzales SALT MACHINE OPERATOR.POINT OF CARE TECHNICIAN Work Phone: [facility] 05-24-2021 zoster vaccine recombinant Deneen Garcia MD Work Phone: [facility] 03-09-2021 zoster vaccine recombinant Deneen Garcia MD Work Phone: [facility] 07-21-2018 influenza, high dose seasonal, preservative-free Deneen Garcia MD Work Phone: [facility] Work Phone: 01-16-2018 pneumococcal polysaccharide vaccine, 23 valent Deneen Garcia MD Work Phone: [facility] 07-14-2017 pneumococcal conjuga te vaccine, 13 valent Deneen Garcia MD Work Phone: [facility] 09-26-2014 tetanus toxoid, redu liam diphtheria toxoid, and acellular pertussis vaccine, adsorbed Deneen Garcia MD Work Phone: [facility] 12-16-2012 zoster vaccine, live Deneen Garcia MD Work Phone: [facility] Payers Date Payer Category Payer Self-pay 2020 Medicare [facility] MEDICARE [facility] MEDICARE ADVANTAGE PPO [id number] 2020-Present [phone] [address] [address] [place] [address] PPO [id number] 2020 Medicare [facility] MEDICARE [facility] MEDICARE ADVANTAGE PPO [id number] 2020-Present [phone] [address] [address] [place] [address] PPO [id number] 2020 Medicare (Managed Care) [id number] 2020 Private Health Insurance [id number] 2016 Government (not [facility] care or Medicaid) [facility] [address] G[address] [address] [place] [address] [id number] 2016 Unknown [id number] Medicare [id number] Unknown [id number] Unknown [id number] Unknown [id number] Social History Date Type Detail Facility Start: 07-23-2022 End: 06-30-2025 Tobacco smoking status NHIS Never smoked tobacco [facility] Start: 07-17-2021 End: 07-01-2025 Alcohol intake Current non-drinker of alcohol (finding) [facility] Start: 03-01-2021 End: 12-06-2022 History SDOH Alcohol Frequency 2 [facility] Start: 03-01-2021 End: 12-06-2022 History SDOH Alcohol Std Drinks 1 [facility] Start: 03-01-2021 End: 12-06-2022 History SDOH Social Connections Phone 5 [facility] Start: 03-01-2021 End: 12-06-2022 History SDOH Social Connections Get Together 3 [facility] Start: 11-16-2019 Education 19 [facility] Start: 1950 Sex Assigned At Not on file [facility] Start: 01-06-2022 End: 07-23-2022 Exposure to SARS-CoV-2 (event) Not sure [facility] Work Phone: Start: 04-10-2022 End: 12-06-2022 History SDOH Social Connections Get Together 4 [facility] Start: 1950 Sex Assigned At Female [facility] Start: 07-23-2022 Tobacco use and exposure Smokeless tobacco non-user [facility] Work Phone: Start: 12-06-2022 End: 05-16-2023 History of Social function [facility] Start: 12-06-2022 End: 05-16-[address] [facility] Do you belong to any clubs or organizations such as sikhism groups, unions, fraternal or athletic groups, or school groups? Yes [facility] Are you now , , , , never or living with a partner? [facility] How often to you hav e a drink containing alcohol? Monthly or less [facility] How many standard dr inks containing alcohol do you have on a typical day? 1 or 2 [facility] How often do you hav e 6 or more drinks on 1 occasion? Never [facility] Start: 09-20-2012 How hard is it for you to pay for the very basics like food, housing, medical care, and heating Not hard at all [facility] Do you feel stress - tense, restless, nervous, or anxious, or unable to sleep at night because your mind is troubled all the time - these days [OSQ] Only a little [facility] (I/We) worried rayo er (my/our) food would run out before (I/we) got money to buy more. Never true [facility] In the past 12 month s, was there a time when you were not able to pay the mortgage or rent on time? No [facility] Start: 04-10-2022 Gender identity Identifies as female gender (finding) [facility] Start: 03-01-2021 Sexual orientation Heterosexual (finding) [facility] Start: 10-28-2023 Tobacco smoking status DCIS Unknown if ever smoked [facility] Do you feel stress - tense, restless, nervous, or anxious, or unable to sleep at night because your mind is troubled all the time - these days [OSQ] Not at all [facility] Functional Status Date Assessment Result Facility 04-06-2015 Are you deaf, or do you have serious difficulty hearing No 04/06/2015 7:43 PM EDT Estella Lopez Ma No [facility] 04-06-2015 Are you blind, or do you have serious difficulty seeing, even when wearing glasses No 04/06/2015 7:43 PM Estella Dillon Ma No [facility] 04-06-2015 Do you have serious difficulty walking or climbing stairs Yes 04/06/2015 7:43 PM Estella Dillon Ma Yes [facility] 04-06-2015 Do you have difficul ty dressing or bathing No 04/06/2015 7:43 PM Estella Dillon Ma No [facility] 04-06-2015 Because of a physica l, mental, or emotional condition, do you have difficulty doing errands alone such as visiting a physician's office or shopping No 04/06/2015 7:43 PM EDT Natan Stoney FunezEstella [facility] Mental Status Date Assessment Result Facility 04-06-2015 Because of a physica l, mental, or emotional condition, do you have serious difficulty concentrating, remembering, or making decisions No 04/06/2015 7:43 PM EDT Natan Stoney Estella Funez [facility] Clinical Notes 03-09-2013 to 07-15-2025 Note Date & Type Note Facility 07-15-2025 Discharge summary Note Date/Time July 15, 2025 9:44am [facility] Physical Therapy [facility] [place] [address] / REHABILITATION SERVICES DISCHARGE SUMMARY MR#: [id number] Acct: [id number] Name: JESSICA WORRELL Rep #: [id number] : 1950 74 From: Antolin Kahn DPT, OCS, CSCS Referring Dr.: EZEQUIEL SCHWAB OLDER Status: REG RCR Insurance: [facility] MEDICARE ADVANTAGE SELF PAY INSURANCE Patient Information Patient Information: JESSICA WORRELL was seen in my office for initial evaluation on 06/28/25. The following Plan of Care was established for this patient: POC Established Initial Frequency: 3x /Week Initial Duration: 2-4 Weeks Anticipated Interventions Patient/Client Instruction: Educate patient on: Condition and Plan of Care For the Purpose of:: To decrease pain, To increase ROM, To improve nutrient delivery to tissue, To improve muscle performance and motor function and To increase tolerance to activity/condition/position Therapeutic Exercise to Include: Strength training, Flexibilty training, PassiveROM and Active ROM For the Purpose of:: To decrease pain, To increase ROM, To improve nutrient delivery to tissue and To improve muscle performance and motor function Last Seen Last Seen: This patient was last seen in our office 07/08/25. Pertinent comments regardingtheir Physical therapy will appear below: Pt seen 3 visits of POC but called and canceelled remaining. Will discontinue atthis time. At this point I will be discontinuing this patient from physical therapy. I would be happy to see this patient again in the future if found appropriate by the physician. Thank you! Antolin Kahn DPT, TONYA, CSCS Balance/Gait/Functional tests Balance/Special Test Scores Functional Gait Assessment Score: 27 % Disability: 10.0000 Lower Extremity Functional Score: 36 <Electronically signed by Antolin Kahn DPT, TONYA, CSCS> 07/15/25 0944 CC: EZEQUIEL STEVENS; Dr. Deneen Garcia MD ~ EBG Signed [facility] Work Phone: 1(316) 831-123409-26-2025 Discharge summary [facility] Physical Therapy [facility] [address] [place] [address] / REHABILITATION SERVICES DISCHARGE SUMMARY MR#: [id number] Acct: [id number] Name: JESSICA WORRELL Rep #: [id number] : 1950 74 From: Antolin Kahn DPT, TONYA, WOODY Referring Dr.: EZEQUIEL STEVENS Status: REG RCR Insurance: [facility] MEDICARE ADVANTAGE SELF PAY INSURANCE Patient Information Patient Information: JESSICA WORRELL was seen in my office for initial evaluation on 06/28/25. The following Plan of Care was established for this patient: POC Established Initial Frequency: 3x /Week Initial Duration: 2-4 Weeks Anticipated Interventions Patient/Client Instruction: Educate patient on: Condition and Plan of Care For the Purpose of:: To decrease pain, To increase ROM, To improve nutrient delivery to tissue, To improve muscle performance and motor function and To increase tolerance to activity/condition/position Therapeutic Exercise to Include: Strength training, Flexibilty training, PassiveROM and Active ROM For the Purpose of:: To decrease pain, To increase ROM, To improve nutrient delivery to tissue and To improve muscle performance and motor function Last Seen Last Seen: This patient was last seen in our office 07/08/25. Pertinent comments regardingtheir Physical therapy will appear below: Pt seen 3 visits of POC but called and canceelled remaining. Will discontinue atthis time. At this point I will be discontinuing this patient from physical therapy. I would be happy to see this patient again in the future if found appropriate by the physician. Thank you! Antolin Kahn, DPT, OCS, CSCS Balance/Gait/Functional tests Balance/Special Test Scores Functional Gait Assessment Score: 27 % Disability: 10.0000 Lower Extremity Functional Score: 36 07/15/25 0944 CC: EZEQUIEL STEVENS; Dr. Deneen Garcia MD ~ EBG Signed [facility]09-12-2025 Instructions* Patient Instructions* Deneen Garcia MD - 07/01/2025 3:50 PM EDT We discussed your knee pain and physical therapy: - You experienced severe knee pain in April, which was alleviated with cortisone. X-rays showed bone on bone changes in your knee joint. - You are starting physical therapy to strengthen the muscles around your knee, which can help reduce joint strain. You mentioned that the physical therapist has assessed you, and you are waiting forinsurance approval to begin sessions. - Please avoid overexertion, as you noted increased knee pain after walking 5,000 steps on consecutive days. Gradually increase activity as advised by your physical therapist. - If your knee pain worsens or persists, please contact us. If necessary, we can refer you to an orthopedist for further evaluation. Note that most surgeons require a BMI under 35 for knee replacement surgery. We discussed your weight management: - You are working on weight loss and have already made dietary changes, such as avoiding desserts for the past two weeks. Keep up these efforts. - If you are unable to achieve significant weight loss on your own, we discussed the option of starting a medication like Ozempic (semaglutide) to assist with weight loss. This medication can help reduce appetite but may have side effects such as nausea, diarrhea, or loss of muscle mass. It is alsocostly unless obtained through a compounding pharmacy. - If you decide to pursue Ozempic or another weight loss medication, please let us know, and we candiscuss it further. We discussed your blood pressure management: - You are currently taking spironolactone and losartan to manage your blood pressure. Both medications are working well, and your potassium levels are within a safe range. - Spironolactone is an aldosterone antagonist, which helps reduce sodium and water retention, lowering blood pressure. Losartan is an angiotensin receptor bill, which prevents blood vessel constriction and also helps lower blood pressure. - Continue taking these medications as prescribed and monitor for any side effects. We discussed your compression socks and fluid retention: - You are wearing compression socks most of the time to manage fluid retention. Continue using themas needed, especially if you notice stiffness or swelling in your ankles. We discussed your upcoming gastroenterology care: - You recently saw a irrigation laborer, Dr. Park, who is reviewing your chart to determine whether a colonoscopy is necessary. Please follow up with his office for further instructions. Next steps: - Begin physical therapy once insurance approval is obtained. - Continue your weight loss efforts and consider medication options if needed. - Monitor your knee pain and contact us if it worsens or persists. - Follow up with Dr. Park regarding your gastroenterology care. - Continue taking your blood pressure medications and wearing compression socks as needed. Please let us know if you have any additional concerns or questions. [facility] NoteHNO ID: [id number] Author: DENEEN GARCIA MD Service: ? Author Type: Physician Type: Progress Notes Filed: 07/01/2025 17:13 Note Text: Reason for Visit Follow up HPI Pearl Worrell is a 74-year-old female with a history of HTN and bilateral knee osteoarthritis, presenting for follow-up on knee pain and weight management. Pearl reports a sudden onset of severe knee pain in April, which rendered her unable to ambulate. She attempted conservative management, including rest, bathing, and using a cane, but the pain persisted for a week. She sought medical attention and was prescribed cortisone, which alleviated the pain. X-rays were performed, revealing bone on bone changes. She was referred to physical therapy and had an initial assessment but has not yet started the therapy sessions. She expresses fear of engaging in physical activity due to the severity of the pain experienced in April. Recently, she has been more active, walking approximately 5,000 steps on two consecutive days, which she notes is a significant increase for her. She reports a recurrence of knee pain this morning, described as a little twinge, similar to the initial onset in April. She attributes this to overexertion and expresses a desire to continue physical therapy to safely increase her activity level. Pearl has a history of bilateral knee injuries in her 20s, which she managed conservatively. She recalls a previous recommendation to strengthen the muscles around her knees to reduce joint stress. She denies current pain with ambulation but is concerned about the potential need for knee surgery in the future. She is also focused on weight management, having gained 5 lbs over the summer. She has been attempting to lose weight by avoiding desserts for the past 2 weeks. She recalls previous successful weight loss with a high-protein, low-vegetable diet. She expresses interest in understanding the mechanisms of her current medications, spironolactone and losartan, and their effects on her body. She wears compression socks most of the time to manage fluid retention. She has a family history of knee replacements in her sisters, who also had bone on bone changes. She is aware of the potential need for a BMI of less than 35 for surgical consideration and is exploring options for weight loss, including the possibility of medications like Ozempic. She expresses a desire to improve her physical condition and quality of life, stating, If I had to live in this body the way it is today for another 20 years, which I expect to have, I won't be happy. SOCIAL HISTORY[1] Past medical history, appointments, medications, allergies reviewed. Pertinent Lab/Diagnostic Studies are reviewed and discussed today Current Outpatient Medications: estradiol (ESTRACE) 0.01 % (0.1 mg/gram) vaginal cream losartan (COZAAR) 50 mg tablet spironolactone (ALDACTONE) 25 mg tablet terbinafine HCl (LAMISIL AT) 1 % cream zolpidem (AMBIEN) 10 mg omeprazole (PRILOSEC) 40 mg capsule ketoconazole (NIZORAL) 2 % cream meloxicam (MOBIC) 15 mg tablet loperamide HCl (IMODIUM) 2 mg tab acetaminophen (TYLENOL ARTHRITIS PAIN) 650 mg CR tablet clobetasol (TEMOVATE) 0.05 % ointment Ferrous Gluconate 225 mg (27 mg iron) tab MAGNESIUM ORAL multivitamin with minerals (HAIR,SKIN AND NAILS ORAL) COMPOUNDED PRESCRIPTION multivitamin tablet loratadine(CLARITIN 10 MG TAB) Health Maintenance DTaP,Tdap,Td Vaccine(2 - Td or Tdap) Advance Directive Discussion Medicare Advantage Annual Wellness Visit Influenza Vaccine(1) Mammogram Screening@ Review Of Systems Musculoskeletal: (+) knee pain, (+) ankle stiffness, (-) pain with walking Physical Exam BP 135/79 Pulse 94 Resp 16 Wt 105.7 kg (233 lb 1.9 oz) BMI 41.30 kg/m? GENERAL: NAD, alert and oriented. SKIN: Unremarkable, no rash or skin lesions. HEAD: Normocephalic. EYES: PERRLA, EOMI, conjunctiva clear. LUNGS: Clear to auscultation bilaterally, no wheezes/rhonchi/rales. HEART: Regular rate and rhythm, no murmurs. No ectopy. EXTREMITIES: Normal, no deformities, no skin discoloration, no edema. NEURO: Awake, alert and oriented x3, cranial nerves II-XII grossly intact, normal gait, no involuntary motions. Labs: - BMP: Within normal limits Imaging: - (April) Knee X-ray: Degenerative changes described as ?bone on bone.? Assessment and Plan 1. Essential hypertension (I10) Blood pressure is well controlled on current regimen of spironolactone and losartan; potassium levels remain within normal limits. - Continue spironolactone and losartan as prescribed. - Educated patient on the mechanisms of action of spironolactone (aldosterone antagonist) and losartan (angiotensin receptor antagonist), including their roles in reducing sodium and water retention, preventing vasoconstriction, and lowering blood pressure. - Discussed the risk of hyperkalemia with concurrent use (more content not included)...[facility]09-12-2025 History of Present illness Narrative* Deneen Garcia MD - 07/01/2025 3:29 PM EDT Reason for Visit Follow up HPI Pearl Worrell is a 74-year-old female with a history of HTN and bilateral knee osteoarthritis, presenting for follow-up on knee pain and weight management. Pearl reports a sudden onset of severe knee pain in April, which rendered her unable to ambulate. She attempted conservative management, inclu ding rest, bathing, and using a cane, but the pain persisted for a week. She sought medical attention and was prescribed cortisone, which alleviated the pain. X-rays were performed, revealing bone on bone changes. She was referred to physical therapy and had an initial assessment but has not yet started the therapy sessions. She expresses fear of engaging in physical activity due to the severity of the pain experienced in April. Recently, she has been more active, walking approximately 5,000 steps on two consecutive days, which she notes is a significant increase for her. She reports a recurrence of knee pain this morning, described as a little twinge, similar to the initial onset in April. She attributes this to overexertion and expresses a desire to continue physical therapy to safely increase her activity level. Pearl has a history of bilateral knee injuries in her 20s, which she managed conservatively. She recalls a previous recommendation to strengthen the muscles around her knees to reduce joint stress. She denies current pain with ambulation but is concerned about the potential need for knee surgery inthe future. She is also focused on weight management, having gained 5 lbs over the summer. She has been attempting to lose weight by avoiding desserts for the past 2 weeks. She recalls previous successful weightloss with a high-protein, low- vegetable diet. She expresses interest in understanding the mechanisms of her current medications, spironolactone and losartan, and their effects on her body. She wears compression socks most of the time to manage fluid retention. She has a family history of knee replacements in her sisters, who also had bone on bone changes. She is aware of the potential need for a BMI of less than 35 for surgical consideration and is exploring options for weight loss, including the possibility of medications like Ozempic. She expresses adesire to improve her physical condition and quality of life, stating, If I had to live in this body the way it is today for another 20 years, which I expect to have, I won't be happy. SOCIAL HISTORY[1] Past medical history, appointments, medications, allergies reviewed. Pertinent Lab/Diagnostic Studies are reviewed and discussed today Current Outpatient Medications: estradiol (ESTRACE) 0.01 % (0.1 mg/gram) vaginal cream losartan (COZAAR) 50 mg tablet spironolactone (ALDACTONE) 25 mg tablet terbinafine HCl (LAMISIL AT) 1 % cream zolpidem (AMBIEN) 10 mg omeprazole (PRILOSEC) 40 mg capsule ketoconazole (NIZORAL) 2 % cream meloxicam (MOBIC) 15 mg tablet loperamide HCl (IMODIUM) 2 mg tab acetaminophen (TYLENOL ARTHRITIS PAIN) 650 mg CR tablet clobetasol (TEMOVATE) 0.05 % ointment Ferrous Gluconate 225 mg (27 mg iron) tab MAGNESIUM ORAL multivitamin with minerals (HAIR,SKIN AND NAILS ORAL) COMPOUNDED PRESCRIPTION multivitamin tablet loratadine(CLARITIN 10 MG TAB) Health Maintenance DTaP,Tdap,Td Vaccine(2 - Td or Tdap) Advance Directive Discussion Medicare Advantage Annual Wellness Visit Influenza Vaccine(1) Mammogram Screening@ Review Of Systems Musculoskeletal: (+) knee pain, (+) ankle stiffness, (-) pain with walking Physical Exam BP 135/79 Pulse 94 Resp 16 Wt 105.7 kg (233 lb 1.9 oz) BMI 41.30 kg/m GENERAL: NAD, alert and oriented. SKIN: Unremarkable, no rash or skin lesions. HEAD: Normocephalic. EYES: PERRLA, EOMI, conjunctiva clear. LUNGS: Clear to auscultation bilaterally, no wheezes/rhonchi/rales. HEART: Regular rate and rhythm, no murmurs. No ectopy. EXTREMITIES: Normal, no deformities, no skin discoloration, no edema. NEURO: Awake, alert and oriented x3, cranial nerves II-XII grossly intact, normal gait, no involuntary motions. Labs: - BMP: Within normal limits Imaging: - (April) Knee X-ray: Degenerative changes described as bone on bone. Assessment and Plan 1. Essential hypertension (I10) Blood pressure is well controlled on current regimen of spironolactone and losartan; potassium levels remain within normal limits. - Continue spironolactone and losartan as prescribed. - Educated patient on the mechanisms of action of spironolactone (aldosterone antagonist) and losartan (angiotensin receptor antagonist), including their roles in reducing sodium and water retention,preventing vasoconstriction, and lowering blood pressure. - Discussed the risk of hyperkalemia with concurrent use of spironolactone and losartan; patient acknowledged understanding. 2. Primary osteoarthritis of left knee (M17.12) Chronic osteoarthritis of the left knee with recent acute exacerbation in April, managed with corticosteroids and X-ray imaging showing [id number] changes. Patient is awaiting initiation of physicaltherapy and is concerned about pain recurrence with increased activity. - Continue with physical therapy as planned. - Advised patient to monitor activity levels and avoid overexertion to prevent pain flare-ups. - Discussed potential need for orthopedic consultation if symptoms worsen. - Informed patient that most orthopedic surgeons require BMI <35 for knee replacement surgery; advised active weight loss. - Discussed potential use of Ozempic for weight loss, including risks (nausea, diarrhea, muscle mass loss), cost, and the importance of maintaining physical activity. - Patient to try weight loss independently for 3 months before considering medication. Voice recognition software was used to compose this office note. Please excuse any unintended typographical errors. Recording using ambient AI software for draft documentation of the visit was discussed with the patient/authorized medical device sales representative; all questions welcomed and answered. Patient/authorized medical device sales representative agreed to proceed Deneen Garcia MD [1] Social History Tobacco Use Smoking status: Never Smokeless tobacco: Never Vaping Use Vaping status: Never Used Substance Use Topics Alcohol use: No Drug use: No [facility]* Diagnosis Onset Date Resolution Status Admit Date GERD (gastroesophageal reflu x disease) acute June 30, 2025 1:56pm Irritable bowel syndrome wit h diarrhea acute June 30, 2025 1:56pm Personal history of adenomatous and serrated colon polyps acute June 30, 2025 1:56pm [facility] Work Phone: [phone]) 970-142208-29-2025 Telephone encounter Note* Telephone Encounter - Keesha Cortes MA - 06/17/2025 3:58 PM EDT Order faxed to [facility]. [facility]08-29-2025 Miscellaneous Notes* Telephone Encounter - Keesha Cortes MA - 06/17/2025 3:58 PM EDT Order faxed to [facility]. * Telephone Encounter - Josselin Stevens APRN.CNP - 06/17/2025 3:26 PM EDT Order for PT placed. [facility] and then update patient. Thank you Josselin Stevens APRN.CNP documented in this encounterAden[facility]08-29-2025 Telephone encounter Note * Telephone Encounter - Josselin Stevens APRN.CNP - 06/17/2025 3:26 PM EDT Order for PT placed. Please fax to [facility] and then update patient. Thank you Josselin Stevens APRN.CNP [facility]08-11-2025 NoteHNO ID: [id number] Author: DARIEL PATEL OD Service: ? Author Type: CERTIFIED PATHOLOGY ASSISTANT Type: Progress Notes Filed: 05/30/2025 16:30 Note Text: 1. Diplopia (Primary) Adjusted prism to account for increase in diplopia Educated pt on adaptation Longstanding history of high esophoria- appears stable 2. Combined forms of age-related cataract of both eyes Mild- monitor 3. Myopia of both eyes 4. Presbyopia 5. Regular astigmatism of both eyes Finalized spec rx with increase in horizontal and vertical prism Follow-up in 1 year for complete eye exam I have confirmed and edited as necessary the relevant HPI, ophthalmic history, ROS, and the neuro exam findings as obtained by others. I have seen and examined Jessica Worrell. I have discussed the case and the management of this patient's care with the Resident/Fellow, if applicable. I also have reviewed and agree with the assessment and plan as stated above and agree with all of its relevant components. Dariel Patel, ALANNA May 30, 2025 4:29 [facility]08-11-2025 History of Present illness Narrative* Dariel Patel, OD - 05/30/2025 4:29 PM EDT 1. Diplopia (Primary) Adjusted prism to account for increase in diplopia Educated pt on adaptation Longstanding history of high esophoria- appears stable 2. Combined forms of age-related cataract of both eyes Mild- monitor 3. Myopia of both eyes 4. Presbyopia 5. Regular astigmatism of both eyes Finalized spec rx with increase in horizontal and vertical prism Follow-up in 1 year for complete eye exam I have confirmed and edited as necessary the relevant HPI, ophthalmic history, ROS, and the neuro exam findings as obtained by others. I have seen and examined Jessica Worrell. I have discussed the case and the management of this patient's care with the Resident/Fellow, if applicable. I also have reviewed and agree with the assessment and plan as stated above and agree withall of its relevant components. Dariel Patel, ALANNA May 30, 2025 4:29 PM documented in this encounterAdena [facility] System07-28-2025 Telephone encounter Note * Telephone Encounter - Keesha Cortes MA - 05/16/2025 4:52 PM EDT Patient notified, will let us know if wanting referrals. [facility]07-28-20[facility] Miscellaneous Notes* Telephone Encounter - Keesha Cortes MA - 05/16/2025 4:52 PM EDT Patient notified, will let us know if wanting referrals. * Telephone Encounter - Keesha Cortes MA - 05/16/2025 4:47 PM EDT ----- Message from Josselin Stevens APRN.CNP sent at 05/12/2025 4:19 PM EDT ----- Advanced arthritis noted to knee. I recommend physical therapy and seeing orthopedics. Would she like the order placed? Thank you Josselin Stevens APRN.CNP documented in this encounterAdena [facility] System07-28-2025 Telephone encounter Note * Telephone Encounter - Keesha Cortes MA - 05/16/2025 4:47 PM EDT ----- Message from Josselin Stevens APRN.CNP sent at 05/12/2025 4:19 PM EDT ----- Advanced arthritis noted to knee. I recommend physical therapy and seeing orthopedics. Would she like the order placed? Thank you Josselin Stevens APRN.CNP [facility]07-24-2025 Telephone encounter Note* Telephone Encounter - Keesha Cortes MA - 05/12/2025 9:41 AM EDT Patient notified, referral was faxed yesterday in previous TE. [facility]07-24-2025 Miscellaneous Notes* Telephone Encounter - Keesha Cortes MA - 05/12/2025 9:41 AM EDT Patient notified, referral was faxed yesterday in previous TE. * Telephone Encounter - Josselin Stevens APRN.CNP - 05/12/2025 7:50 AM EDT Prescription resent. And consult placed. Please fax as requested. Thank you Josselin Stevens APRN.CNP * Telephone Encounter - Kirsten Whitehead RN - 05/11/2025 12:12 PM EDT Pt called in and reports she took her first 2 days of Prednisone. Which would have been 4 tablets aday. The yesterday she couldn't find them after going to pick pack worker her grandchildren, and states theylooked for them all day. She reports she missed all of yesterdays dose and today's. She reports herknee was starting to feel better, but now today it's hurting. She was asking if the provider would call in the rest the prednisone order in to [facility] in [place] for her. Please call Pt back and advise. Pt was also asking if provider could put in a new referral for Gastro consult. She states the one that was placed was for inside the [facility] and she is going to see Dr Park. Kirsten Whitehead, RN documented in this encounterAdena Health System07-24-2025 Telephone encounter Note * Telephone Encounter - Josselin Stevens APRN.CNP - 05/12/2025 7:50 AM EDT Prescription resent. And consult placed. Please fax as requested. Thank you Josselin Stevens APRN.HERACLIO [facility]07-23-2025 Telephone encounter Note* Telephone Encounter - Keesha Cortes MA - 05/11/2025 2:12 PM EDT Order faxed to Dr Echeverria office as requested. [facility]07-23-2025 Miscellaneous Notes* Telephone Encounter - Keesha Cortes MA - 05/11/2025 2:12 PM EDT Order faxed to Dr Echeverria office as requested. documented in this encounterAdena [facility] System07-23-2025 Telephone encounter Note * Telephone Encounter - Kirsten Whitehead RN - 05/11/2025 12:12 PM EDT Pt called in and reports she took her first 2 days of Prednisone. Which would have been 4 tablets aday. The yesterday she couldn't find them after going to pick pack worker her grandchildren, and states theylooked for them all day. She reports she missed all of yesterdays dose and today's. She reports herknee was starting to feel better, but now today it's hurting. She was asking if the provider would call in the rest the prednisone order in to [facility] in [place] for her. Please call Pt back and advise. Pt was also asking if provider could put in a new referral for Gastro consult. She states the one that was placed was for inside the [facility] and she is going to see Dr Friend. Kirsten Whitehead, TYREE [facility]07-18-2025 History of Present illness Narrative* Bhaskar Kessler RT(R) - 05/06/2025 2:50 PM EDT Radiology Service Progress Note PATIENT NAME: Jessica Worrell DATE OF SERVICE: May 06, 2025 TIME: 2:47 PM PATIENT IDENTITY VERIFICATION COMPLETED USING TWO (2) IDENTIFIERS: Name and Date of confirmedby patient verbally. FALL SCREENING: Has the patient had 2 falls in the last year or 1 fall with injury or currently using an Ambulatory Assistive Device (Walker, Cane, Wheelchair, Crutches, etc.)? No PATIENT GENDER DATA: Assigned female at . status: : No status:NO. PATIENT RELEVANT IMPLANT DATA REVIEWED: Not Applicable PATIENT PRESENTS WITH AN IMPLANTABLE OR ATTACHED SPORTS BOOK BOARD ATTENDANT: No RADIOLOGY DEPARTMENT: General X-ray: Exam(s) Completed: Lower Extremity X- Ray(s): Knee, AP / Lat / Tunne / Merchant Left and Wt. Bearing PERIPHERAL IV DATA: Not applicable SIGNED BY: RT Osito(R) May 06, 2025 2:47 PM documented in this encounterAdena Health System07-18-2025 NoteHNO ID: [id number] Author: BHASKAR KESSLER RT(R) Service: ? Author Type: Technologist Type: Progress Notes Filed: 05/06/2025 15:00 Note Text: Radiology Service Progress Note PATIENT NAME: Jessica Worrell DATE OF SERVICE: May 06, 2025 TIME: 2:47 PM PATIENT IDENTITY VERIFICATION COMPLETED USING TWO (2) IDENTIFIERS: Name and Date of confirmed by patient verbally. FALL SCREENING: Has the patient had 2 falls in the last year or 1 fall with injury or currently using an Ambulatory Assistive Device (Walker, Cane, Wheelchair, Crutches, etc.)? No PATIENT GENDER DATA: Assigned female at . status: : No status: NO. PATIENT RELEVANT IMPLANT DATA REVIEWED: Not Applicable PATIENT PRESENTS WITH AN IMPLANTABLE OR ATTACHED SPORTS BOOK BOARD ATTENDANT: No RADIOLOGY DEPARTMENT: General X-ray: Exam(s) Completed: Lower Extremity X-Ray(s): Knee, AP / Lat / Tunne / Merchant Left and Wt. Bearing PERIPHERAL IV DATA: Not applicable SIGNED BY: RT Osito(R) May 06, 2025 2:47 [facility]07-18-2025 Instructions* Patient Instructions* Josselin Stevens APRN.CNP - 05/06/2025 2:27 PM EDT - Start the prescribed 9-day course of prednisone to reduce inflammation in your left knee. - Ice your left knee regularly to help decrease swelling. - Rest your knee and avoid all knee-strengthening exercises for about one week. - Use the ELLIOT-style compression wrap on your knee for support; you were shown how to apply it today. - Obtain the left knee X-ray as ordered before any further imaging. - If your knee pain or swelling does not improve within one week--or if it worsens at any time--call our office so we can arrange an MRI, start physical therapy, or refer you to orthopedics. documented in this encounterAdena Health System07-18-2025 NoteHNO ID: [id number] Author: JOSSELIN STEVENS APRN.CNP Service: ? Author Type: Nurse Practitioner Type: Progress Notes Filed: 05/06/2025 15:11 Note Text: CC: Patient presents with: Knee Pain HPI Jessica Worrell is a 74 year old female who presents today for left knee pain. Recording using One Season software for draft documentation of the visit was discussed with the patient/authorized medical device sales representative; all questions welcomed and answered. Patient/authorized medical device sales representative agreed to proceed Left Knee Pain: - Acute onset of left knee pain and stiffness began last morning. - Denies known trauma or injury; pain began after a workout at [employer] the previous evening. - Exercises included teapots with a 10 lb ball, Maltese twists, and other knee exercises; denies pain during the workout. - History of ruptured quadriceps tendon in 2009, repaired by Dr. Carver in [place]. - Previous incidents of knee swelling in college and seminary after twisting the knee on a [employer] bus. - Using a cane for ambulation; reports pain when bending the knee and stepping down stairs. - Sensation of potential instability in the knee when walking, but no actual giving way. - Taking arthritis strength Tylenol BID for years; avoids NSAIDs due to omeprazole use and she is already on mobic for known arthritis - Denies applying ice to the knee. - Previous use of prednisone for inflammation; tolerates well. Denies redness, fever, chills, numbness, or weakness. REVIEW OF SYSTEMS See HPI PAST MEDICAL HISTORY Diagnosis Date Acute gastritis without mention of hemorrhage Allergic rhinitis, cause unspecified BMI 40.0-44.9, adult ([facility]) 08/02/2013 Cataract Corneal abrasion 20 y ago [...] OVARY 10/20/2002 Hysterectomy, BETO left ovaries ALLERGIES Elliot Inhibitors, Cats, Norvasc [Amlodipine Besylate], Poison Kendy, Adhesive Tape (Rosins), Dust Mites, and Tree And Shrub Pollen MEDICATIONS predniSONE (DELTASONE) 10 mg tablet Take 4 tabs daily for 3 days, then 2 tabs daily for 3 days, then 1 tab daily for 3 days with food. estradiol (ESTRACE) 0.01 % (0.1 mg/gram) vaginal cream APPLY 1 GRAM OF CREAM TO LOWER VAGINA AND A PEA SIZED AMOUNT TO THE OPENING OF THE VAGINA 3 TIMES WEEKLY losartan (COZAAR) 50 mg tablet Take 1 tablet by mouth two times a day. spironolactone (ALDACTONE) 25 mg tablet Take 1 tablet by mouth once daily. terbinafine HCl (LAMISIL AT) 1 % cream Apply to affected area two times a day. zolpidem (AMBIEN) 10 mg Use half to one tablet as needed. omeprazole (PRILOSEC) 40 mg capsule Take 1 capsule by mouth once daily. ketoconazole (NIZORAL) 2 % cream Apply 1 application to affected area once daily. Apply to rash and surrounding area meloxicam (MOBIC) 15 mg tablet Take 1 tablet by mouth once daily. loperamide HCl (IMODIUM) 2 mg tab Take 1 tablet by mouth as needed. acetaminophen (TYLENOL ARTHRITIS PAIN) 650 mg CR tablet Take 1 tablet by mouth every 8 hours as needed. clobetasol (TEMOVATE) 0.05 % ointment Apply half of one [id number] to cover the affected area two days a week. Ferrous Gluconate 225 mg (27 mg iron) tab Take 1 tablet by mouth once daily. MAGNESIUM ORAL Take by mouth. multivitamin with minerals (HAIR,SKIN AND NAILS ORAL) Take by mouth. COMPOUNDED PRESCRIPTION Exercise 30 minutes daily 5 [...] Never Smokeless tobacco: Never Vaping Use Vaping status: Never Used Substance Use Topics Alcohol use: No Drug use: No PHYSICAL EXAM BP 142/80 Pulse 101 Resp 16 Wt 107 kg (236 lb) BMI 41.81 kg/m? General Appearance: well appearing, in no acute distress, alert BLE: No deformities, edema, skin discoloration, clubbing or cyanosis. Good capillary refill. Musculoskeletal: Left knee- edema not (more content not included)...[facility]07-18-2025 History of Present illness Narrative* Older, VIVI Schwab.POINT OF CARE TECHNICIAN - 05/06/2025 2:09 PM EDT CC: Patient presents with: Knee Pain HPI Jessica Worrell is a 74 year old female who presents today for left knee pain. Recording using One Season software for draft documentation of the visit was discussed with the patient/authorized medical device sales representative; all questions welcomed and answered. Patient/authorized medical device sales representative agreed to proceed Left Knee Pain: - Acute onset of left knee pain and stiffness began last morning. - Denies known trauma or injury; pain began after a workout at [employer] the previous evening. - Exercises included teapots with a 10 lb ball, Maltese twists, and other knee exercises; denies pain during the workout. - History of ruptured quadriceps tendon in 2009, repaired by Dr. Carver in [place]. - Previous incidents of knee swelling in college and seminary after twisting the knee on a [employer] bus. - Using a cane for ambulation; reports pain when bending the knee and stepping down stairs. - Sensation of potential instability in the knee when walking, but no actual giving way. - Taking arthritis strength Tylenol BID for years; avoids NSAIDs due to omeprazole use and she is already on mobic for known arthritis - Denies applying ice to the knee. - Previous use of prednisone for inflammation; tolerates well. Denies redness, fever, chills, numbness, or weakness. REVIEW OF SYSTEMS See HPI PAST MEDICAL HISTORY Diagnosis Date Acute gastritis without mention of hemorrhage Allergic rhinitis, cause unspecified BMI 40.0-44.9, adult ([facility]) 08/02/2013 Cataract Corneal abrasion 20 y ago [...] OVARY 10/20/2002 Hysterectomy, BETO left ovaries ALLERGIES Elliot Inhibitors, Cats, Norvasc [Amlodipine Besylate], Poison Kendy, Adhesive Tape (Rosins), Dust Mites, and Tree And Shrub Pollen MEDICATIONS predniSONE (DELTASONE) 10 mg tablet Take 4 tabs daily for 3 days, then 2 tabs daily for 3 days, then 1 tab daily for 3 days with food. estradiol (ESTRACE) 0.01 % (0.1 mg/gram) vaginal cream APPLY 1 GRAM OF CREAM TO LOWER VAGINA AND A PEA SIZED AMOUNT TO THE OPENING OF THE VAGINA 3 TIMES WEEKLY losartan (COZAAR) 50 mg tablet Take 1 tablet by mouth two times a day. spironolactone (ALDACTONE) 25 mg tablet Take 1 tablet by mouth once daily. terbinafine HCl (LAMISIL AT) 1 % cream Apply to affected area two times a day. zolpidem (AMBIEN) 10 mg Use half to one tablet as needed. omeprazole (PRILOSEC) 40 mg capsule Take 1 capsule by mouth once daily. ketoconazole (NIZORAL) 2 % cream Apply 1 application to affected area once daily. Apply to rash andsurrounding area meloxicam (MOBIC) 15 mg tablet Take 1 tablet by mouth once daily. loperamide HCl (IMODIUM) 2 mg tab Take 1 tablet by mouth as needed. acetaminophen (TYLENOL ARTHRITIS PAIN) 650 mg CR tablet Take 1 tablet by mouth every 8 hours as needed. clobetasol (TEMOVATE) 0.05 % ointment Apply half of one [id number] to cover the affected area two days a week. Ferrous Gluconate 225 mg (27 mg iron) tab Take 1 tablet by mouth once daily. MAGNESIUM ORAL Take by mouth. multivitamin with minerals (HAIR,SKIN AND NAILS ORAL) Take by mouth. COMPOUNDED PRESCRIPTION Exercise 30 minutes daily 5 [...] Never Smokeless tobacco: Never Vaping Use Vaping status: Never Used Substance Use Topics Alcohol use: No Drug use: No PHYSICAL EXAM BP 142/80 Pulse 101 Resp 16 Wt 107 kg (236 lb) BMI 41.81 kg/m General Appearance: well appearing, in no acute distress, alert BLE: No deformities, edema, skin discoloration, clubbing or cyanosis. Good capillary refill. Musculoskeletal: Left knee- edema noted on inspection. Tenderness:medial joint line: Yes. Flexion:Limitation: Yes, Pain:Yes; Extension:Limitation:No, Pain:No. Laxity: No Lower extremities: good distal pulses. Muscle strength- 5/5 lower, bilaterally Health maintenance reviewed with patient: DTaP,Tdap,Td Vaccine(2 - Td or Tdap) due on 09/26/2024 Advance Directive Discussion due on 10/20/2024 Medicare Advantage Annual Wellness Visit due on 10/20/2024 Covid-19 Vaccine( season) due on 01/03/2025 RSV Vaccine(1 - Risk 60-74 years 1-dose series) due on 03/24/2026 Influenza Vaccine(1) due on 06/20/2025 Mammogram Screening due on 11/19/2025 Depression Screening due on 11/26/2025 Anxiety Screening due on 11/26/2025 Annual PCP Team Chronic Disease Visit due on 05/06/2026 Diabetes Screening due on 04/27/2028 Lipid Screening due on 11/19/2029 Colorectal Cancer Screening due on 02/22/2032 Bone Density Screening Completed Hepatitis C Screening Completed Shingrix Vaccine Completed Pneumococcal Vaccine: 50+ Completed DATA REVIEWED: No new labs Assessment/Plan 1. Acute pain of left knee (M25.562) - Onset of left knee pain and stiffness began last without any specific injury; history ofquadriceps tendon rupture in 2009 with subsequent surgical repair. - Physical examination reveals tenderness and mild swelling on the medial aspect of the left knee; pain exacerbated by flexion. - Differential diagnoses include sprain, strain, tendinitis or meniscal involvement. - Ordered X-ray of the left knee to rule out any fractures or significant structural abnormalities. - Initiated a 9-day course of prednisone to reduce inflammation. - Advised rest, ice application, and use of a compression bandage to manage swelling and support the knee. - Patient to avoid knee strengthening exercises for the next week. - If no improvement is observed within a week, will consider referral to physical therapy and orthopedics, and potentially order an MRI. - Patient understands and agrees with the treatment plan. Prescription instructions reviewed with patient as applicable. Potential red flag symptoms discussed with the patient. Reviewed appropriate action plan to take if red flag symptoms occur. Patient agreeable to treatment plan. Josselin Stevens APRN.HERACLIO documented in this encounterA[facility]06-[facility]25 Telephone encounter Note * Telephone Encounter - Mira Joseph MD - 04/15/2025 12:12 PM EDT filed [facility]-27[facility] Miscellaneous Notes* Telephone Encounter - Mira Joseph MD - 04/15/2025 12:12 PM EDT filed * Telephone Encounter - Bhavani Pappas RN - 04/15/2025 10:51 AM EDT Refill request received via [employer]. Patient last seen for annual exam on 12/01/23, has Medicare insurance. Bhavani Pappas RN documented in this encounterAdena Health System06-27-2025 Telephone encounter Note * Telephone Encounter - Bhavani Pappas RN - 04/15/2025 10:51 AM EDT Refill request received via [employer]. Patient last seen for annual exam on 12/01/23, has Medicare insurance. Bhavani Pappas RN [facility]06-05-2025 Instructions* Patient Instructions* Deneen Garcia MD - 03/24/2025 11:24 AM EDT We discussed your weight and exercise: - You expressed concerns about your weight and lack of exercise. You mentioned that you regained weight after a vacation but have since lost it. You also shared that you have not been exercising regularly. - I encourage you to resume regular exercise to help with weight management and overall health. Establishing a consistent routine will be beneficial. - Weight loss may also help alleviate your incontinence symptoms by reducing abdominal pressure on your bladder. We discussed your blood pressure: - Your blood pressure readings at home have been inconsistent. I recommend resting for 10-15 minutes before taking your blood pressure to ensure accurate readings. - You are currently taking Losartan twice daily. If your blood pressure remains high, we may consider increasing the dose to 100 mg or adding Spironolactone. If Spironolactone is added, we will need to check your blood work in one month. - Please monitor your blood pressure at home and let us know if it remains elevated. We discussed your incontinence: - You mentioned frequent nighttime urination and concerns about incontinence. Weight loss may help improve these symptoms by reducing abdominal pressure on your bladder. We discussed your GERD and hiatal hernia: - You are taking Omeprazole for GERD and have been on it for over 25 years. While long-term use is not typically recommended, the benefits outweigh the risks in your case. - You have a history of a hiatal hernia and a Schatzki s ring, which was treated with dilation during a prior endoscopy. You are due for a follow-up endoscopy every five years to monitor this condition. We discussed your upcoming colonoscopy: - You are due for a colonoscopy this year. I will provide a referral for you to see a irrigation laborer at the [facility] for this procedure. We discussed your antifungal treatment: - You reported that the Ketoconazole cream was not effective for your neck rash, but an [id number]-[id number] antifungal cream has been more helpful. - I will send a prescription for a different antifungal cream to your pharmacy for you to try. Follow-up plan: - I will see you back in three months to monitor your progress with weight management, blood pressure, and overall health. - If your blood pressure remains high, please let us know, and we can adjust your medication as needed. - Schedule your colonoscopy with the [facility] irrigation laborer once the referral is processed. - If the new antifungal cream does not improve your symptoms, please let us know. Thank you for sharing your concerns, and I look forward to working with you on your health goals. documented in this encounterAdena Health System06-05-2025 NoteHNO ID: [id number] Author: DENEEN GARCIA MD Service: ? Author Type: Physician Type: Progress Notes Filed: 03/24/2025 11:33 Note Text: Reason for Visit Follow up Mei Kang is a 74-year-old female with a history of HTN, GERD, and hiatal hernia, presenting for follow-up. Pearl reports difficulty losing weight and concerns about her current weight of 233 lbs. She attributes her weight gain to a lack of exercise over the past year due to various reasons, including a humerus fracture, multiple trips, a viral illness, and other personal commitments. She expresses a desire to return to the gym and establish a regular exercise routine. She mentions a recent 3-week vacation during which her weight increased to 241 lbs, but she has since lost the gained weight. She reports losing 7 lbs in the past month through intentional efforts but acknowledges not consistently working on weight loss. She also reports nocturia, waking up multiple times at night to urinate, and expresses concerns about incontinence, believing that weight loss might alleviate this issue. She denies snoring and sleep apnea and occasionally takes zolpidem to aid sleep, having used 1.5 doses in the past month. She denies regular use of compression socks but mentions experiencing dizziness upon getting out of bed, accompanied by slight nausea and a headache about 1.5-2 weeks ago. She questions if these symptoms could be related to high blood pressure. She reports using a [employer] brand blood pressure cuff, which has given inconsistent readings, including 74/28 and 178 systolic. She is currently taking losartan BID and has a history of adverse reactions to other antihypertensive medications, including a cough and significant swelling. She is due for a colonoscopy and inquires about a referral. She has a history of GERD and a hiatal hernia, for which she has been taking omeprazole for over 25 years. She mentions a previous endoscopy that identified a Schatzki ring, which was treated. She takes an iron supplement daily and denies anemia. She also reports using ketoconazole for a fungal infection on her neck but finds [id number] antifungal treatments more effective. Social History Tobacco Use Smoking status: Never Smokeless tobacco: Never Vaping Use Vaping status: Never Used Substance Use Topics Alcohol use: No Drug use: No Past medical history, appointments, medications, allergies reviewed. Pertinent Lab/Diagnostic Studies are reviewed and discussed today Current Outpatient Medications: zolpidem (AMBIEN) 10 mg omeprazole (PRILOSEC) 40 mg capsule ketoconazole (NIZORAL) 2 % cream meloxicam (MOBIC) 15 mg tablet estradiol (ESTRACE) 0.01 % (0.1 mg/gram) vaginal cream loperamide HCl (IMODIUM) 2 mg tab acetaminophen (TYLENOL ARTHRITIS PAIN) 650 mg CR tablet clobetasol (TEMOVATE) 0.05 % ointment MAGNESIUM ORAL multivitamin with minerals (HAIR,SKIN AND NAILS ORAL) COMPOUNDED PRESCRIPTION multivitamin tablet loratadine(CLARITIN 10 MG TAB) losartan (COZAAR) 50 mg tablet spironolactone (ALDACTONE) 25 mg tablet terbinafine HCl (LAMISIL AT) 1 % cream Ferrous Gluconate 225 mg (27 mg iron) tab Health Maintenance BP Controlled (<130/80) DTaP,Tdap,Td Vaccine(2 - Td or Tdap) Advance Directive Discussion Covid-19 Vaccine( season)@ Review Of Systems Constitutional: (+) weight gain Head: (+) headache Respiratory: (+) snoring Gastrointestinal: (+) nausea Genitourinary: (+) nocturia, (+) urinary incontinence Skin: (+) neck rash Neurological: (+) dizziness Physical Exam BP 136/94 Pulse (!) 52 Resp 16 Wt 106.3 kg (234 lb 6.4 oz) BMI 41.52 kg/m? GENERAL: NAD, alert and oriented SKIN: Unremarkable, no rash or skin lesions. HEAD: Normocephalic EYES: PERRLA, EOMI, conjunctiva clear EARS: External ears normal, canals clear, TM's normal. NOSE/SINUSES: Nares normal. Septum midline. OROPHARYNX: Lips, mucosa, and tongue normal, good dentition. No oral lesions noted. NECK: Supple, no lymphadenopathy, normal thyroid, no carotid bruits. LUNGS: Clear to auscultation bilaterally, no wheezes/rhonchi/rales. HEART: Regular rate and rhythm, no murmurs. No ectopy. EXTREMITIES: Normal, no deformities, no skin discoloration, no edema. NEURO: Awake, alert and oriented x3, cranial nerves II-XII grossly intact, normal gait, no involuntary motions. Labs: Imaging: Tests: - (2 years ago) Esophagogastroduodenoscopy: Schatzki ring identified and dilated. Large hiatal hernia noted. - Sleep study: Negative for sleep apnea. Assessment and Plan 1. Gastroesophageal reflux disease without esophagitis (K21.9) Schatzki's ring (K22.2) Hiatal hernia (K44.9) GERD managed with omeprazole for over 25 years. Schatzki's ring previously dilated. Hiatal hernia is large, approximately softball-sized. - Continue omeprazole therapy. - Referral to [facility] for GI follow-up an (more content not included)...[facility]06-05-2025 History of Present illness Narrative* Deneen Garcia MD - 03/24/2025 11:20 AM EDT Reason for Visit Follow up Hypertension BARAK Kang is a 74-year-old female with a history of HTN, GERD, and hiatal hernia, presenting for follow-up. Pearl reports difficulty losing weight and concerns about her current weight of 233 lbs. She attributes her weight gain to a lack of exercise over the past year due to various reasons, including a humerus fracture, multiple trips, a viral illness, and other personal commitments. She expresses a desire to return to the gym and establish a regular exercise routine. She mentions a recent 3-week vacat ion during which her weight increased to 241 lbs, but she has since lost the gained weight. She reports losing 7 lbs in the past month through intentional efforts but acknowledges not consistently working on weight loss. She also reports nocturia, waking up multiple times at night to urinate, and expresses concerns about incontinence, believing that weight loss might alleviate this issue. She denies snoring and sleepapnea and occasionally takes zolpidem to aid sleep, having used 1.5 doses in the past month. She denies regular use of compression socks but mentions experiencing dizziness upon getting out of bed, accompanied by slight nausea and a headache about 1.5-2 weeks ago. She questions if these symptoms could be related to high blood pressure. She reports using a [employer] brand blood pressure cuff, which has given inconsistent readings, including 74/28 and 178 systolic. She is currently taking losartan BID and has a history of adverse reactions to other antihypertensive medications, including a cough and significant swelling. She is due for a colonoscopy and inquires about a referral. She has a history of GERD and a hiatal hernia, for which she has been taking omeprazole for over 25 years. She mentions a previous endoscopy that identified a Schatzki ring, which was treated. She takes an iron supplement daily and denies anemia. She also reports using ketoconazole for a fungal infection on her neck but finds [id number] antifungal treatments more effective. Social History Tobacco Use Smoking status: Never Smokeless tobacco: Never Vaping Use Vaping status: Never Used Substance Use Topics Alcohol use: No Drug use: No Past medical history, appointments, medications, allergies reviewed. Pertinent Lab/Diagnostic Studies are reviewed and discussed today Current Outpatient Medications: zolpidem (AMBIEN) 10 mg omeprazole (PRILOSEC) 40 mg capsule ketoconazole (NIZORAL) 2 % cream meloxicam (MOBIC) 15 mg tablet estradiol (ESTRACE) 0.01 % (0.1 mg/gram) vaginal cream loperamide HCl (IMODIUM) 2 mg tab acetaminophen (TYLENOL ARTHRITIS PAIN) 650 mg CR tablet clobetasol (TEMOVATE) 0.05 % ointment MAGNESIUM ORAL multivitamin with minerals (HAIR,SKIN AND NAILS ORAL) COMPOUNDED PRESCRIPTION multivitamin tablet loratadine(CLARITIN 10 MG TAB) losartan (COZAAR) 50 mg tablet spironolactone (ALDACTONE) 25 mg tablet terbinafine HCl (LAMISIL AT) 1 % cream Ferrous Gluconate 225 mg (27 mg iron) tab Health Maintenance BP Controlled (<130/80) DTaP,Tdap,Td Vaccine(2 - Td or Tdap) Advance Directive Discussion Covid-19 Vaccine( season)@ Review Of Systems Constitutional: (+) weight gain Head: (+) headache Respiratory: (+) snoring Gastrointestinal: (+) nausea Genitourinary: (+) nocturia, (+) urinary incontinence Skin: (+) neck rash Neurological: (+) dizziness Physical Exam BP 136/94 Pulse (!) 52 Resp 16 Wt 106.3 kg (234 lb 6.4 oz) BMI 41.52 kg/m GENERAL: NAD, alert and oriented SKIN: Unremarkable, no rash or skin lesions. HEAD: Normocephalic EYES: PERRLA, EOMI, conjunctiva clear EARS: External ears normal, canals clear, TM's normal. NOSE/SINUSES: Nares normal. Septum midline. OROPHARYNX: Lips, mucosa, and tongue normal, good dentition. No oral lesions noted. NECK: Supple, no lymphadenopathy, normal thyroid, no carotid bruits. LUNGS: Clear to auscultation bilaterally, no wheezes/rhonchi/rales. HEART: Regular rate and rhythm, no murmurs. No ectopy. EXTREMITIES: Normal, no deformities, no skin discoloration, no edema. NEURO: Awake, alert and oriented x3, cranial nerves II-XII grossly intact, normal gait, no involuntary motions. Labs: Imaging: Tests: - (2 years ago) Esophagogastroduodenoscopy: Schatzki ring identified and dilated. Large hiatal hernia noted. - Sleep study: Negative for sleep apnea. Assessment and Plan 1. Gastroesophageal reflux disease without esophagitis (K21.9) Schatzki's ring (K22.2) Hiatal hernia (K44.9) GERD managed with omeprazole for over 25 years. Schatzki's ring previously dilated. Hiatal hernia is large, approximately softball-sized. - Continue omeprazole therapy. - Referral to [facility] for GI follow-up and colonoscopy. - Monitor for any signs of anemia. 2. Essential hypertension (I10) Blood pressure readings at home are inconsistent. Currently on losartan twice daily. Previous adverse reactions to amlodipine and other antihypertensives. - Increase losartan to 100 mg if blood pressure remains elevated. - Add spironolactone if needed; will check blood work in one month after initiation. - Recheck blood pressure at home after resting for 10-15 minutes. - Follow-up in 3 months. 3. Morbid obesity (HCC) (E66.01) Weight remains a concern; recent weight gain during vacation. Patient acknowledges lack of exerciseand dietary challenges. - Discussed the importance of weight loss for overall health improvement, including potential reduction in blood pressure and alleviation of incontinence symptoms. - Encouraged regular exercise and dietary modifications. 4. Tinea corporis (B35.4) Current treatment with ketoconazole not fully effective. - Prescribe a different antifungal cream to be sent to the pharmacy. Voice recognition software was used to compose this office note. Please excuse any unintended typographical errors. Recording using One [employer] software for draft documentation of the visit was discussed with the patient/authorized medical device sales representative; all questions welcomed and answered. Patient/authorized medical device sales representative agreed to proceed Deneen Garcia MD documented in this encounterAdena [facility] System05-06-2025 Telephone encounter Note * Telephone Encounter - Usama Galvan LPN - 02/22/2025 12:59 PM EDT Patient MyChart message requesting the following refill Refill(s) Requested: Requested Prescriptions Pending Prescriptions Disp Refills zolpidem (AMBIEN) 10 mg 30 tablet 0 Sig: Use half to one tablet as needed. ALLERGIES Allergen Reactions Elliot Inhibitors Cough Cats Other: See Comments Norvasc [Amlodipine* Intolerance Lower extremity swelling Poison Kendy Other: See Comments Spreads all over body. Adhesive Tape (Baylee* Rash Dust Mites Other: See Comments Sneezing, sore throat, burning eyes Tree And Shrub Poll* Itching Itching in eyes and arms (home) [phone] (cell) Last Office Visit Date: 11/26/2024 Last Distance Health Visit: Visit date not found Future Appointment: 03/24/2025 The patients preferred pharmacy has been captured for this encounter? yes Request is for script(s) to be escript to pharmacy. Usama Galvan LPN [facility]05-06-2025 Miscellaneous Notes* Telephone Encounter - Usama Galvan LPN - 02/22/2025 12:59 PM EDT Patient ClickandBuyhart message requesting the following refill Refill(s) Requested: Requested Prescriptions Pending Prescriptions Disp Refills zolpidem (AMBIEN) 10 mg 30 tablet 0 Sig: Use half to one tablet as needed. ALLERGIES Allergen Reactions Elliot Inhibitors Cough Cats Other: See Comments Norvasc [Amlodipine* Intolerance Lower extremity swelling Poison Kendy Other: See Comments Spreads all over body. Adhesive Tape (Baylee* Rash Dust Mites Other: See Comments Sneezing, sore throat, burning eyes Tree And Shrub Poll* Itching Itching in eyes and arms (home) [phone] (cell) Last Office Visit Date: 11/26/2024 Last Distance Health Visit: Visit date not found Future Appointment: 03/24/2025 The patients preferred pharmacy has been captured for this encounter? yes Request is for script(s) to be escript to pharmacy. Usama Galvan LPN documented in this encounterAdena Health System05-01-2025 Telephone encounter Note * Telephone Encounter - Usama Galvan LPN - 02/17/2025 8:55 AM EDT Patient [employer]and[employer] message requesting the following refill Refill(s) Requested: Requested Prescriptions Pending Prescriptions Disp Refills omeprazole (PRILOSEC) 40 mg capsule 90 capsule 3 Sig: Take 1 capsule by mouth once daily. ALLERGIES Allergen Reactions Elliot Inhibitors Cough Cats Other: See Comments Norvasc [Amlodipine* Intolerance Lower extremity swelling Poison Kendy Other: See Comments Spreads all over body. Adhesive Tape (Baylee* Rash Dust Mites Other: See Comments Sneezing, sore throat, burning eyes Tree And Shrub Poll* Itching Itching in eyes and arms (home) [phone] (cell) Last Office Visit Date: 11/26/2024 Last Distance Health Visit: Visit date not found Future Appointment: 03/24/2025 The patients preferred pharmacy has been captured for this encounter? yes Request is for script(s) to be escript to pharmacy. Usama Galvan LPN [facility]05-01-2025 Miscellaneous Notes* Telephone Encounter - Usama Galvan LPN - 02/17/2025 8:55 AM EDT Patient [employer]and[employer] message requesting the following refill Refill(s) Requested: Requested Prescriptions Pending Prescriptions Disp Refills omeprazole (PRILOSEC) 40 mg capsule 90 capsule 3 Sig: Take 1 capsule by mouth once daily. ALLERGIES Allergen Reactions Elliot Inhibitors Cough Cats Other: See Comments Norvasc [Amlodipine* Intolerance Lower extremity swelling Poison Kendy Other: See Comments Spreads all over body. Adhesive Tape (Baylee* Rash Dust Mites Other: See Comments Sneezing, sore throat, burning eyes Tree And Shrub Poll* Itching Itching in eyes and arms (home) [phone] (cell) Last Office Visit Date: 11/26/2024 Last Distance Health Visit: Visit date not found Future Appointment: 03/24/2025 The patients preferred pharmacy has been captured for this encounter? yes Request is for script(s) to be escript to pharmacy. Usama Galvan LPN documented in this encounterAdena Health System02-07-2025 NoteHNO ID: [id number] Author: DENEEN GARCIA MD Service: ? Author Type: Physician Type: Progress Notes Filed: 11/26/2024 15:01 Note Text: Reason for Visit Patient presents with: F/U 6 Month Jessica Worrell is a 73 year old female who presents here today for Above Complaints.. Health Maintenance BP Controlled (<130/80) RSV Vaccine(1 - 1-dose 60+ series) Advance Directive Discussion Covid-19 Vaccine() Mammogram Screening HPI This is a 73-year-old female with a past medical history of obesity, hypertension, osteoarthritis, reflux, GERD. She has white coat hypertension, she needs a repeat bp every time , would benefit from ambulatory bp monitoring. She has gained around 13 pounds of weight. She as been working at eating better and trying to lose weight. Stressed about the current state of affairs, it makes her blood pressure high. The ambien has been helping her sleep when she has a hard time sleeping. Taken it occasionally, 30 pills last 7 months for her She has a rash on the neck recurring, it is itching, and red, it has resolved when she sued nystatin in the past, it got better, so she wants to use. No problem-specific Assessment AND Plan notes found for this encounter. PAST MEDICAL HISTORY Diagnosis Date Acute gastritis without mention of hemorrhage Allergic rhinitis, cause unspecified BMI 40.0-44.9, adult ([facility]) 08/02/2013 Cataract Corneal abrasion 20 y ago [...] Never Smokeless tobacco: Never Vaping Use Vaping status: Never Used Substance Use Topics Alcohol use: No Drug use: No Past medical history, appointments, medications, allergies reviewed. Pertinent Lab/Diagnostic Studies are reviewed and discussed today Current Outpatient Medications: meloxicam (MOBIC) 15 mg tablet losartan (COZAAR) 50 mg tablet zolpidem (AMBIEN) 10 mg omeprazole (PRILOSEC) 40 mg capsule estradiol (ESTRACE) 0.01 % (0.1 mg/gram) vaginal cream loperamide HCl (IMODIUM) 2 mg tab acetaminophen (TYLENOL ARTHRITIS PAIN) 650 mg CR tablet clobetasol (TEMOVATE) 0.05 % ointment MAGNESIUM ORAL multivitamin with minerals (HAIR,SKIN AND NAILS ORAL) COMPOUNDED PRESCRIPTION multivitamin tablet loratadine(CLARITIN 10 MG TAB) ketoconazole (NIZORAL) 2 % cream Ferrous Gluconate 225 mg (27 mg iron) tab Review of Systems CONSTITUTIONAL: No fevers, chills [...] or numbness of concern. Physical Exam BP 142/86 Pulse 93 Resp 16 Wt 105.9 kg (233 lb 6.4 oz) SpO2 98% BMI 41.34 kg/m? General appearance: Well appearing, alert, in no acute distress, well nourished. Skin: red patchy small areas on the courtney, with little scales Head: Normocephalic, no masses, lesions, tenderness or abnormalities Eyes: Anicteric sclera. Pupils are equally round and reactive to light. Extraocular movements are intact. Lungs: Lungs clear to auscultation. No wheezing, rhonchi, rales Heart: RRR without murmur, gallop, or rubs. Extremities: No deformities, edema, skin discoloration, clubbing or cyanosis. Good capillary refill. ASSESSMENT/PLAN: 1. Essential hypertension - ICD9: 401.9, ICD10: I10 (primary diagnosis) - uncontrolled, weight gain is contributing, ambulatory bp monitoring and we are targetting 10 pounds weight loss in 3 months - Recommend home blood pressure monitoring, to bring results to next visit - Encouraged sodium restriction, DASH or Mediterranean diet - Recommend regular aerobic exerc (more content not included)...[facility]02-07-2025 History of Present illness Narrative* Ganta, Deneen, MD - 11/26/2024 1:52 PM EST Reason for Visit Patient presents with: F/U 6 Month Jessica Worrell is a 73 year old female who presents here today for Above Complaints.. Health Maintenance BP Controlled (<130/80) RSV Vaccine(1 - 1-dose 60+ series) Advance Directive Discussion Covid-19 Vaccine( season) Mammogram Screening HPI This is a 73-year-old female with a past medical history of obesity, hypertension, osteoarthritis, reflux, GERD. She has white coat hypertension, she needs a repeat bp every time , would benefit from ambulatory bp monitoring. She has gained around 13 pounds of weight. She as been working at eating better and trying to lose weight. Stressed about the current state of affairs, it makes her blood pressure high. The ambien has been helping her sleep when she has a hard time sleeping. Taken it occasionally, 30 pills last 7 months for her She has a rash on the neck recurring, it is itching, and red, it has resolved when she sued nystatin in the past, it got better, so she wants to use. No problem-specific Assessment & Plan notes found for this encounter. PAST MEDICAL HISTORY Diagnosis Date Acute gastritis without mention of hemorrhage Allergic rhinitis, cause unspecified BMI 40.0-44.9, adult ([facility]) 08/02/2013 Cataract Corneal abrasion 20 y ago [...] Never Smokeless tobacco: Never Vaping Use Vaping status: Never Used Substance Use Topics Alcohol use: No Drug use: No Past medical history, appointments, medications, allergies reviewed. Pertinent Lab/Diagnostic Studies are reviewed and discussed today Current Outpatient Medications: meloxicam (MOBIC) 15 mg tablet losartan (COZAAR) 50 mg tablet zolpidem (AMBIEN) 10 mg omeprazole (PRILOSEC) 40 mg capsule estradiol (ESTRACE) 0.01 % (0.1 mg/gram) vaginal cream loperamide HCl (IMODIUM) 2 mg tab acetaminophen (TYLENOL ARTHRITIS PAIN) 650 mg CR tablet clobetasol (TEMOVATE) 0.05 % ointment MAGNESIUM ORAL multivitamin with minerals (HAIR,SKIN AND NAILS ORAL) COMPOUNDED PRESCRIPTION multivitamin tablet loratadine(CLARITIN 10 MG TAB) ketoconazole (NIZORAL) 2 % cream Ferrous Gluconate 225 mg (27 mg iron) tab Review of Systems CONSTITUTIONAL: No fevers, chills [...] or numbness of concern. Physical Exam BP 142/86 Pulse 93 Resp 16 Wt 105.9 kg (233 lb 6.4 oz) SpO2 98% BMI 41.34 kg/m General appearance: Well appearing, alert, in no acute distress, well nourished. Skin: red patchy small areas on the courtney, with little scales Head: Normocephalic, no masses, lesions, tenderness or abnormalities Eyes: Anicteric sclera. Pupils are equally round and reactive to light. Extraocular movements are intact. Lungs: Lungs clear to auscultation. No wheezing, rhonchi, rales Heart: RRR without murmur, gallop, or rubs. Extremities: No deformities, edema, skin discoloration, clubbing or cyanosis. Good capillary refill. ASSESSMENT/PLAN: 1. Essential hypertension - ICD9: 401.9, ICD10: I10 (primary diagnosis) - uncontrolled, weight gain is contributing, ambulatory bp monitoring and we are targetting 10 pounds weight loss in 3 months - Recommend home blood pressure monitoring, to bring results to next visit - Encouraged sodium restriction, DASH or Mediterranean diet - Recommend regular aerobic exercise - AMBULATORY BP MONITORING 2. Screening for depression - ICD9: V79.0, ICD10: Z13.31 - DEPRESSION SCREENING 3. Encounter for screening examination for other mental health and behavioral disorders - ICD9: V79.8, ICD10: Z13.39 - ANXIETY SCREENING 4. Insomnia, unspecified type - ICD9: 780.52, ICD10: G47.00 Refilled the ambien. 5. Hypertriglyceridemia - ICD9: 272.1, ICD10: E78.1 Advised to exercise and eating right, the tgs will come down as the chols are normal. Deneen Garcia MD documented in this encounterAden[facility]01-31-[facility]25 History of Present illness Narrative* Marcelle Oliver RT(R) - 11/19/2024 12:30 PM EST Radiology Service Progress Note PATIENT NAME: Jessica Worrell DATE OF SERVICE: November 19, 2024 TIME: 12:49 PM PATIENT IDENTITY VERIFICATION COMPLETED USING TWO (2) IDENTIFIERS: Name and Date of confirmedby patient verbally. FALL SCREENING: Has the patient had 2 falls in the last year or 1 fall with injury or currently using an Ambulatory Assistive Device (Walker, Cane, Wheelchair, Crutches, etc.)? No PATIENT GENDER DATA: Assigned female at . status: : No status:NO. PATIENT RELEVANT IMPLANT DATA REVIEWED: Not Applicable PATIENT PRESENTS WITH AN IMPLANTABLE OR ATTACHED SPORTS BOOK BOARD ATTENDANT: No RADIOLOGY DEPARTMENT: Mammography PERIPHERAL IV DATA: Not applicable SIGNED BY: RT Hellen(R) November 19, 2024 12:49 PM documented in this encounterAdena Health System01-31-2025 NoteHNO ID: [id number] Author: MARCELLE OLIVER RT(R) Service: ? Author Type: Technologist Type: Progress Notes Filed: 11/19/2024 12:49 Note Text: Radiology Service Progress Note PATIENT NAME: Jessica Worrell DATE OF SERVICE: November 19, 2024 TIME: 12:49 PM PATIENT IDENTITY VERIFICATION COMPLETED USING TWO (2) IDENTIFIERS: Name and Date of confirmed by patient verbally. FALL SCREENING: Has the patient had 2 falls in the last year or 1 fall with injury or currently using an Ambulatory Assistive Device (Walker, Cane, Wheelchair, Crutches, etc.)? No PATIENT GENDER DATA: Assigned female at . status: : No status: NO. PATIENT RELEVANT IMPLANT DATA REVIEWED: Not Applicable PATIENT PRESENTS WITH AN IMPLANTABLE OR ATTACHED SPORTS BOOK BOARD ATTENDANT: No RADIOLOGY DEPARTMENT: Mammography PERIPHERAL IV DATA: Not applicable SIGNED BY: RT Hellen(R) November 19, 2024 12:49 [facility]01-14-2025 NotePatient Outreach (INTMWS) JESSICA WORRELL ([id number]) 1950 F [place] Date Time Provider Department 11/02/24 DENEEN GARCIA INTMWS During your visit today, we recorded the following information about you: Allergies As of Date: 11/02/2024 Noted Allergy Reaction ELLIOT INHIBITORS 11/18/2017 3 - Cough CATS 11/30/2019 14 - Other: See Comments NORVASC (AMLODIPINE BESYLATE) 08/14/2016 5 - Intolerance Comments: Lower extremity swelling POISON KENDY 04/06/2015 14 - Other: See Comments Comments: Spreads all over body. ADHESIVE TAPE (ROSINS) 10/28/2023 2 - Rash DUST MITES 03/06/2021 14 - Other: See Comments Comments: Sneezing, sore throat, burning eyes TREE AND SHRUB POLLEN 03/06/2021 9 - Itching Comments: Itching in eyes and arms Date Reviewed: 06/22/2024 Reviewed by: Richelle Obando LPN - Fully Assessed Visit Diagnosis:Encounter for screening mammogram for breast cancer [Z12.31] Prescriptions as of 12/03/2024 - ketoconazole (NIZORAL) 2 % cream Apply 1 application to affected area once daily. Apply to rash and surrounding area - zolpidem (AMBIEN) 10 mg Use half to one tablet as needed. - meloxicam (MOBIC) 15 mg tablet Take 1 tablet by mouth once daily. - losartan (COZAAR) 50 mg tablet Take 1 tablet by mouth two times a day. - omeprazole (PRILOSEC) 40 mg capsule Take 1 capsule by mouth once daily. - estradiol (ESTRACE) 0.01 % (0.1 mg/gram) vaginal cream APPLY 1 GRAM OF CREAM TO LOWER VAGINA AND A PEA SIZED AMOUNT TO THE OPENING OF THE VAGINA 3 TIMES WEEKLY - loperamide HCl (IMODIUM) 2 mg tab Take 1 tablet by mouth as needed. - acetaminophen (TYLENOL ARTHRITIS PAIN) 650 mg CR tablet Take 1 tablet by mouth every 8 hours as needed. - clobetasol (TEMOVATE) 0.05 % ointment Apply half of one [id number] to cover the affected area two days a week. - Ferrous Gluconate 225 mg (27 mg iron) tab Take 1 tablet by mouth once daily. - MAGNESIUM ORAL Take by mouth. - multivitamin with minerals (HAIR,SKIN AND NAILS ORAL) Take by mouth. - COMPOUNDED PRESCRIPTION Exercise 30 minutes daily 5 days weekly - multivitamin tablet Take 1 tablet by mouth twice daily. - loratadine(CLARITIN 10 MG TAB) Take one(1) tablet daily as needed for allergy symptoms. Problem List As Of Date 11/02/2024 Noted Resolved Depressive disorder, not elsewhere classified [* 11/19/2019 ALLERGIC RHINITIS NOS [J30.9] Gastroesophageal reflux disease without esophag* IRON DEFIC ANEMIA NOS [D50.9] 09/15/2007 ACUTE GASTRITIS W/O HEMORRHAGE [K29.00] 10/12/2007 Osteopenia [M89.9, M94.9] Primary Localized Osteoarthrosis, Lower Leg [M1*07/10/2009 Quadriceps muscle rupture [S76.119A] 08/01/2010 04/06/2015 Tubular adenoma of colon [D12.6] 01/13/2013 Chronic diarrhea [K52.9] 03/09/2013 Leucocytosis [D72.829] 03/09/2013 04/06/2015 BMI 40.0-44.9, adult (HCC) [Z68.41] 08/02/2013 04/23/2024 Pain in joint, shoulder region [M25.519] 12/23/2013 Essential hypertension [I10] 09/01/2015 Glucose intolerance (impaired glucose tolerance*08/06/2016 Impingement syndrome of right shoulder [M75.41] 02/13/2018 Arthritis of right shoulder region [M19.011] 02/16/2018 Myopia of both eyes [H52.13] 02/01/2019 Insomnia [G47.00] 11/19/2019 Hiatal hernia [K44.9] 11/19/2019 Bilateral chronic knee pain [M25.561, M25.562, *07/15/2023 Balance problem [R26.89] 07/15/2023 Closed fracture of head of right humerus with r*01/07/2024 Encounter Status:Closed by NELSON MOSER on 12/03/24[facility] 07-21-2024 NoteHNO ID: [id number] Author: NATALIE SERRANO MA Service: ? Author Type: Hydrotreater Operator Type: Progress Notes Filed: 07/21/2024 13:35 Note Text: POPULATION HEALTH NAVIGATION OUTREACH Action/FYI Called and left a message to call [phone], to discuss health maintenance items that are due. Reason for Outreach Returned Call/MyChart Patient Contacted: Unable or unnecessary to reach patient: Left message ClickandBuyhart message sent HCC related Navigation Signature: Natalie Serrano MA July 21, 2024 1:34 [facility]10-02-2024 History of Present illness Narrative* Natalie Serrano MA - 07/21/2024 1:34 PM EDT POPULATION HEALTH NAVIGATION OUTREACH Action/FYI Called and left a message to call [phone], to discuss health maintenance items that are due. Reason for Outreach Returned Call/MyChart Patient Contacted: Unable or unnecessary to reach patient: Left message MyChart message sent HCC related Navigation Signature: Natalie Serrano MA July 21, 2024 1:34 PM * Natalie Serrano MA - 07/21/2024 1:17 PM EDT POPULATION HEALTH NAVIGATION OUTREACH Action/FYI Spoke with patient briefly and she requested a call back in a few minutes. She is currently in a store PCP appt: wellness done on 05/21/24- needs follow up for HCC gaps HM due: BP Flu BREAST CANCER SCREENING only done every 2 years per last outreach on 05/19/24. Reason for Outreach Care Gap/HCC or Scheduling Wellness Visits Care Gaps due: Follow-up Appointment Controlling Blood Pressure Flu Vaccine Patient Contacted: Spoke to patient/parent/or legal guardian Patient identified by name and : Yes Care Gap/HCC/Scheduling Wellness actions taken: Patient declined: Patient requested call back / will call back (MyChart Sent) HCC related Navigation Signature: Natalie Serrano MA July 21, 2024 1:20 PM documented in this encounterAdena Health System10-02-2024 NoteHNO ID: [id number] Author: NATALIE SERRANO MA Service: ? Author Type: Hydrotreater Operator Type: Progress Notes Filed: 07/21/2024 13:22 Note Text: POPULATION HEALTH NAVIGATION OUTREACH Action/SHELBYI Spoke with patient briefly and she requested a call back in a few minutes. She is currently in a store PCP appt: wellness done on 05/21/24- needs follow up for HCC gaps HM due: BP Flu BREAST CANCER SCREENING only done every 2 years per last outreach on 05/19/24. Reason for Outreach Care Gap/HCC or Scheduling Wellness Visits Care Gaps due: Follow-up Appointment Controlling Blood Pressure Flu Vaccine Patient Contacted: Spoke to patient/parent/or legal guardian Patient identified by name and : Yes Care Gap/HCC/Scheduling Wellness actions taken: Patient declined: Patient requested call back / will call back (MyChart Sent) HCC related Navigation Signature: Natalie Serrano MA July 21, 2024 1:20 [facility]10-02-2024 NotePatient Outreach (NETNAV) GMJESSICA Espinal ([id number]) 1950 F REJI Date Time Provider Department 07/21/24 NATALIE SERRANO During your visit today, we recorded the following information about you: Natalie Serrano MA 07/21/2024 1:22 PM Signed POPULATION HEALTH NAVIGATION OUTREACH Action/FYI Spoke with patient briefly and she requested a call back in a few minutes. She is currently in a store PCP appt: wellness done on 05/21/24- needs follow up for HCC gaps HM due: BP Flu BREAST CANCER SCREENING only done every 2 years per last outreach on 05/19/24. Reason for Outreach Care Gap/HCC or Scheduling Wellness Visits Care Gaps due: Follow-up Appointment Controlling Blood Pressure Flu Vaccine Patient Contacted: Spoke to patient/parent/or legal guardian Patient identified by name and : Yes Care Gap/HCC/Scheduling Wellness actions taken: Patient declined: Patient requested call back / will call back (MyChart Sent) HCC related Navigation Signature: Natalie Serrano MA July 21, 2024 1:20 PM Natalie Serrano MA 07/21/2024 1:35 PM Signed POPULATION HEALTH NAVIGATION OUTREACH Action/FYI Called and left a message to call [phone], to discuss health maintenance items that are due. Reason for Outreach Returned Call/MyChart Patient Contacted: Unable or unnecessary to reach patient: Left message ClickandBuyhart message sent HCC related Navigation Signature: Natalie Serrano MA July 21, 2024 1:34 PM Allergies As of Date: 07/21/2024 Noted Allergy Reaction ELLIOT INHIBITORS 11/18/2017 3 - Cough CATS 11/30/2019 14 - Other: See Comments NORVASC (AMLODIPINE BESYLATE) 08/14/2016 5 - Intolerance Comments: Lower extremity swelling POISON KENDY 04/06/2015 14 - Other: See Comments Comments: Spreads all over body. ADHESIVE TAPE (ROSINS) 10/28/2023 2 - Rash DUST MITES 03/06/2021 14 - Other: See Comments Comments: Sneezing, sore throat, burning eyes TREE AND SHRUB POLLEN 03/06/2021 9 - Itching Comments: Itching in eyes and arms Date Reviewed: 06/22/2024 Reviewed by: Richelle Obando LPN - Fully Assessed Reason for Visit: Population Health Navigation Outreach [3910] Cmt: [facility], [facility], [facility], [place] [facility] Prescriptions as of 07/21/2024 - meloxicam (MOBIC) 15 mg tablet Take 1 tablet by mouth once daily. - losartan (COZAAR) 50 mg tablet Take 1 tablet by mouth two times a day. - zolpidem (AMBIEN) 10 mg Use half to one tablet as needed. - omeprazole (PRILOSEC) 40 mg capsule Take 1 capsule by mouth once daily. - estradiol (ESTRACE) 0.01 % (0.1 mg/gram) vaginal cream APPLY 1 GRAM OF CREAM TO LOWER VAGINA AND A PEA SIZED AMOUNT TO THE OPENING OF THE VAGINA 3 TIMES WEEKLY - loperamide HCl (IMODIUM) 2 mg tab Take 1 tablet by mouth as needed. - acetaminophen (TYLENOL ARTHRITIS PAIN) 650 mg CR tablet Take 1 tablet by mouth every 8 hours as needed. - clobetasol (TEMOVATE) 0.05 % ointment Apply half of one [id number]-lyg-gajv to cover the affected area two days a week. - Ferrous Gluconate 225 mg (27 mg iron) tab Take 1 tablet by mouth once daily. - MAGNESIUM ORAL Take by mouth. - multivitamin with minerals (HAIR,SKIN AND NAILS ORAL) Take by mouth. - COMPOUNDED PRESCRIPTION Exercise 30 minutes daily 5 days weekly - multivitamin tablet Take 1 tablet by mouth twice daily. - loratadine(CLARITIN 10 MG TAB) Take one(1) tablet daily as needed for allergy symptoms. Problem List As Of Date 07/21/2024 Noted Resolved Depressive disorder, not elsewhere classified [* 11/19/2019 ALLERGIC RHINITIS NOS [J30.9] Gastroesophageal reflux disease without esophag* IRON DEFIC ANEMIA NOS [D50.9] 09/15/2007 ACUTE GASTRITIS W/O HEMORRHAGE [K29.00] 10/12/2007 Osteopenia [M89.9, M94.9] Primary Localized Osteoarthrosis, Lower Leg [M1*07/10/2009 Quadriceps muscle rupture [S76.119A] 08/01/2010 04/06/2015 Tubular adenoma of colon [D12.6] 01/13/2013 Chronic diarrhea [K52.9] 03/09/2013 Leucocytosis [D72.829] 03/09/2013 04/06/2015 BMI 40.0-44.9, adult (HCC) [Z68.41] 08/02/2013 04/23/2024 Pain in joint, shoulder region [M25.519] 12/23/2013 Essential hypertension [I10] 09/01/2015 Glucose intolerance (impaired glucose tolerance*08/06/2016 Impingement syndrome of right shoulder [M75.41] 02/13/2018 Arthritis of right shoulder region [M19.011] 02/16/2018 Myopia of both eyes [H52.13] 02/01/2019 Insomnia [G47.00] 11/19/2019 Hiatal hernia [K44.9] 11/19/2019 Bilateral chronic knee pain [M25.561, M25.562, *07/15/2023 Balance problem [R26.89] 07/15/2023 Closed fracture of head of right humerus with r*01/07/2024 Encounter Status:Closed by NATALIE SERRANO on 07/21/24[facility] 06-30-2024 Telephone encounter Note* Telephone Encounter - Christine Morillo LPN - 06/30/2024 12:33 PM EDT Prescription Refill Information The patient has been identified by name and date of : Yes Caregiver verified no other encounters exist for this prescription request: Yes Caregiver confirmed with patient/requestor that no other refills are due, in the near future, with this provider at this time: Yes The last office visit in the department: 05/26/24 Does the patient have a future office visit with this provider/department: Yes 11/26/24 Requested Prescriptions Pending Prescriptions Disp Refills meloxicam (MOBIC) 15 mg tablet 90 tablet 3 Sig: Take 1 tablet by mouth once daily. Christine Morillo LPN June 30, 2024 12:34 PM [facility]09-11-2024 Miscellaneous Notes* Telephone Encounter - Christine Morillo LPN - 06/30/2024 12:33 PM EDT Prescription Refill Information The patient has been identified by name and date of : Yes Caregiver verified no other encounters exist for this prescription request: Yes Caregiver confirmed with patient/requestor that no other refills are due, in the near future, with this provider at this time: Yes The last office visit in the department: 05/26/24 Does the patient have a future office visit with this provider/department: Yes 11/26/24 Requested Prescriptions Pending Prescriptions Disp Refills meloxicam (MOBIC) 15 mg tablet 90 tablet 3 Sig: Take 1 tablet by mouth once daily. Christine Morillo LPN June 30, 2024 12:34 PM documented in this encounterAdena Health System09-03-2024 Instructions* Patient Instructions* Richelle Obando LPN - 06/22/2024 1:26 PM EDT GENERAL SUN SAFETY Thank you for allowing me to examine you for signs of skin cancer today. We had an opportunity to discuss my findings and any treatments I recommended. I believe that there are several steps that a person can do to help prevent skin cancers and to detect them at an early, treatable stage: 1. I highly recommend that once a month you perform your own complete skin check looking for changing or unusual spots. Use a wall-mounted mirror and a hand mirror to assist in seeing body areas thatare difficult to see otherwise. If you have a family member that can assist, this is often helpful.Additional information can be obtained at: www.skincancer.org/xqlb-gonulu-vrbuzojbixm/early-detection 2. In many cases, skin cancer can be prevented. The best way to protect yourself is to avoid too much sun and sunburns. Health care providers believe that ultraviolet rays (UV rays) from the sun damage the skin and over time lead to skin cancer. Here are ways to protect yourself: -Don't spend long periods of time in direct sunlight. -Wear hats with brims to protect your face and ears. -Wear long-sleeved shirts and pants to protect your arms and legs. -Use broad spectrum sunscreens with a SPF (skin protection factor) of 30 or higher that protect against burning and tanning rays. Apply the lotion 30 minutes before you go outside. (Broad-spectrum sunscreens protect against UV-B and UV-A rays.) -Wear sunglasses to protect your eyes. -Use a lip balm with sunscreen. -Avoid the sun between 10am and 4pm. -Show any changing mole to your health care provider. documented in this encounterAdena Health System09-03-2024 History of Present illness Narrative* Elayne Bull APRN.HERACLIO - 06/22/2024 1:21 PM EDT Images from the original note were not included. Department of Dermatology Elayne Bull APRN.CNP Last visit in Dermatology: 11/18/2017 Objective/Assessment/Plan 1. Seborrheic keratosis Stuck-on verrucous, variably pigmented papules and plaques. Scattered to the trunk, bilateral upperextremities, bilateral lower extremities. Observational course. Monitor for growth and changes. 2. Cormier angioma Cormier-red papules scattered to the trunk, bilateral upper extremities, bilateral lower extremities. Observational course. Monitor for growth and changes. 3. Multiple benign nevi Multiple scattered pink papules with flaccid epidermis and small, symmetric mayo to brown macules with uniform pigmentation over the trunk and extremities. Observational course. Monitor for growth and changes. 4. Lentigines Densely scattered light mayo macules and small patches on all sun exposed areas. Observational course. Monitor for growth and changes. 5. Milia (2) Left Ear, Pubic White dome shaped 1-2mm papules. Observational course. Monitor for growth and changes. 6. Skin cancer screening The patient's skin was examined for evidence of cutaneous malignancy. The nature of sun-induced photo-aging and skin cancers is discussed. Sun avoidance, protective clothing, and the use of 30-SPF sunscreens is advised. Patient is instructed to perform regular self exams. Patient instructed to observe for changing, symptomatic, or new skin lesions and encouraged to contact our office for evaluation. Follow-up as noted below or as needed. Chief Complaint: Patient presents with: Full Body Skin Check Subjective and Objective HPI: Jessica Worrell is a 73 year old female who presents for: Skin check. Desires: Total body skin check History of skin cancer?: No Areas of particular concern?: Yes: For individual lesion(s). Lesion(s): bump Location(s): left ear Duration: several years Symptoms: none Associated symptoms/previous treatments: none Past medical history is reviewed. Medication list is reviewed. Physical Exam included: Scalp, face, ears, neck, chest, back, abdomen, bilateral upper extremities, bilateral lower extremities, buttocks, hands, feet, nails and hair Intake information obtained by Richelle Obando LPN The documentation for this note was completed by Richelle Obando LPN acting as scribe for Elayne Bull APRN.CNP. June 22, 2024 1:39 PM I agree with the Chief Complaint, ROS, and Past Histories independently gathered by the clinical desktop support specialist and the remaining scribed note accurately describes my personal service to the patient. Elayne Bull APRN.CNP documented in this encounterAdena [facility] System08-08-2024 History of Present illness Narrative* Dariel Patel, OD - 05/27/2024 10:42 AM EDT (H53.2) Diplopia (primary encounter diagnosis) (H25.813) Combined forms of age-related cataract of both eyes (H52.13) Myopia of both eyes (H52.4) Presbyopia (H52.223) Regular astigmatism of both eyes Finalized spec rx with correct prism Follow-up in 1 year or sooner as needed Dariel Patel OD May 27, 2024 10:42 AM documented in this encounterAdena Health System08-07-2024 History of Present illness Narrative* Deneen Garcia MD - 05/26/2024 9:10 AM EDT Images from the original note were not included. [facility] Initial Consult Jessica Worrell is a 73 year old year old female who comes for Comprehensive Geriatric Assessment. Pt accompanied by: self Caregivers involved in care: brown if needed HPI: Has scored low on the minicog at 3, during a medicare wellness and was referred for cognitive evaluation. She reports that she was ill at that time with viral illness for a month. She had memory issues, with balance issues. Not sure what the illness was as her respiratory panel was normal. She reports being much much better now. Any Family History of dementia? No Are you or your spouse a ? No Alzheimer's Questionnaire (Tenisha 2010) THE CAREGIVER REPORTS THAT THE PATIENT: - Has memory loss - Has worse memory than a few years ago THE CAREGIVER DENIES THAT THE PATIENT: - Repeats questions, statements, or stories in the same day - Forgets appointments or needs caregiver to track events/appointments - Misplaces items more than once a month, or so that s/he cannot find them - Suspects others are moving/hiding/stealing items when s/he cannot find them - Frequently has trouble knowing the date, uses cues like newspaper or calendar more than once a day - Becomes disoriented in unfamiliar places - Becomes more confused outside the home or when traveling - Has difficulty handling money (e.g., calculating tips or change) - Has trouble handling bills or finances - Has trouble remembering to take medications - Has difficulty driving, or drives in way that concerns the caregiver, or has stopped driving - Has trouble using appliances - Has difficulty completing household tasks or repairs - Has significantly reduced recreational activities - Is getting lost in familiar surroundings - Has a decreased sense of direction - Has trouble finding words other than names - Confuses names of family members or friends - Has difficulty recognizing familiar people Alzheimer's Questionnaire score = 2 (21/21 questions answered) Long-term Memory: Difficulty remembering distant events from the past like childhood, previous employment, wedding: NO Behavioral/personality: Withdrawn/Depressed: NO she is not depressed normally but when she is not around people she can become sad as she is an extrovert. Crying spells: NO Anxious: NO History of aggression: No History of irritability: YES Apathy:NO Recent changes in weight or appetite: yes, has intentionally lost weight Alcohol or Drug use: YES occasionally Smoking? NO Sleep: Do you snore loudly (louder than talking or loud enough to be heard through closed doors)? NO Do you often feel tired, fatigued, or sleepy during daytime? NO Has anyone observed you stop breathing during your sleep? NO Are you restless when you sleep at night? NO Do you have problems falling a sleep? NO Do you have problems staying a sleep? NO Psychosis: Hallucinations or delusions: NO Suicidal or homicidal ideations: NO Obsessions, compulsions, or hoarding: NO Safety: Does pt know his/her address? NO What would you do if there was a fire? Yes How would you call for help?call for help Does he/she know 911? YES Are there any firearms in the home? YES If yes are they in a secure location? yes Social History: Primary language: Citizen Of [place] Marital Status: Living situation: Home w/ Spouse Socially engaged? (participates in activities such as clubs, sikhism, community center, sports, games, visiting friends/relatives, etc?): she goes to sikhism every Friday. Goes to a book club. Caregiver [place] and Stress Are your feeling overwhelmed? NO Do you have concerns about your own health? NO Are you neglecting your own needs? NO Do you have financial concerns? NO Do your fear loss of employment? NO Do you have concerns about verbal/physical abuse? NO Do you feel that you are still capable of taking care of your relative? NO Are you willing to continue being in the caregiver role? NO B-ADLs: (I=independent,A=assistance,D=dependent) ?Bathing: I, Dressing: I, Toileting: I, Transferring:I, Continence: I, Feeding: I, (Tucker Index): 6 I-ADLs: Ability to use phone: I, Shopping: I, Cooking: I, Housekeeping: I, Laundry: I, Transportation:I, Medications: {I, Handle Finances: I. (Montcalm scale): 8 PMHx: PAST MEDICAL HISTORY No date: Acute gastritis without mention of hemorrhage No date: Allergic rhinitis, cause unspecified 08/02/2013: BMI 40.0-44.9, adult (HCC) No date: Cataract 20 y ago: Corneal abrasion No date: Depressive disorder, not elsewhere classified No date: Diverticulosis of colon (without mention of hemorrhage) 08/04/15: Elevated BP No date: Esophageal reflux No date: Iron deficiency anemia, unspecified No date: Ocular migraine No date: Osteopenia No date: PMH - PAST MEDICAL HISTORY OF Comment: néstor reyes PSHx: PAST SURGICAL HISTORY 10/12/07: COLONOSCOPY FLX DX W/COLLJ SPEC WHEN PFRMD 12/18/1985: DILATION & CURETTAGE DX&/THER NONOBSTETRIC Comment: Dilation & curettage 10/12/07: EGD TRANSORAL BIOPSY SINGLE/MULTIPLE 03/30/2013: LAPAROSCOPY SURG CHOLECYSTECTOMY 08/09/2010: SUTURE QUADRICEPS/HAMSTRING RUPTURE PRIMARY Comment: REPAIR QUADRICEPS performed by EVELINA CARVER at [facility] No date: TONSILLECTOMY & ADENOIDECTOMY AGE 13/> Comment: T/A (over age 13 years) 10/20/2002: TOTAL ABDOMINAL HYSTERECT W/WO RMVL TUBE OVARY Comment: Hysterectomy, BETO left ovaries Home Meds: Prior to Admission medications : Medication losartan (COZAAR) 50 mg tablet, Sig Take 1 tablet by mouth two times a day., Start Date 04/08/24, End Date , Taking? , Authorizing Provider Josselin Stevens APRN.POINT OF CARE TECHNICIAN Medication zolpidem (AMBIEN) 10 mg, Sig Use half to one tablet as needed., Start Date 02/27/24, End Date 07/04/25, Taking? , Authorizing Provider Josselin Stevens APRN.POINT OF CARE TECHNICIAN Medication omeprazole (PRILOSEC) 40 mg capsule, Sig Take 1 capsule by mouth once daily., Start Date02/04/24, End Date , Taking? , Authorizing Provider Caro Christensen APRN.POINT OF CARE TECHNICIAN Medication estradiol (ESTRACE) 0.01 % (0.1 mg/gram) vaginal cream, Sig APPLY 1 GRAM OF CREAM TO LOWER VAGINA AND A PEA SIZED AMOUNT TO THE OPENING OF THE VAGINA 3 TIMES WEEKLY, Start Date 11/10/23, End Date , Taking? , Authorizing Provider Mira Joseph MD Medication meloxicam (MOBIC) 15 mg tablet, Sig Take 1 tablet by mouth once daily., Start Date 06/26/23, End Date , Taking? , Authorizing Provider Josselin Stevens APRN.POINT OF CARE TECHNICIAN Medication loperamide HCl (IMODIUM) 2 mg tab, Sig Take 1 tablet by mouth as needed., Start Date 05/16/23, End Date , Taking? , Authorizing Provider Josselin Stevens APRN.POINT OF CARE TECHNICIAN Medication acetaminophen (TYLENOL ARTHRITIS PAIN) 650 mg CR tablet, Sig Take 1 tablet by mouth every 8 hours as needed., Start Date 05/16/23, End Date , Taking? , Authorizing Provider Josselin Stevens APRN.POINT OF CARE TECHNICIAN Medication clobetasol (TEMOVATE) 0.05 % ointment, Sig Apply half of one [id number] to cover the affected area two days a week., Start Date 04/30/23, End Date , Taking? , Authorizing Provider Kaylin Bernal APRN.POINT OF CARE TECHNICIAN Medication Ferrous Gluconate 225 mg (27 mg iron) tab, Sig Take 1 tablet by mouth once daily., StartDate 01/11/22, End Date 04/23/24, Taking? , Authorizing Provider Josselin Stevens APRN.POINT OF CARE TECHNICIAN Medication MAGNESIUM ORAL, Sig Take by mouth., Start Date , End Date , Taking? , Authorizing Provider Provider, [facility] Medication multivitamin with minerals (HAIR,SKIN AND NAILS ORAL), Sig Take by mouth., Start Date , End Date , Taking? , Authorizing Provider Provider, [facility] Medication COMPOUNDED PRESCRIPTION, Sig Exercise 30 minutes daily 5 days weekly, Start Date 08/06/16, End Date , Taking? , Authorizing Provider Angle Ramos(Hist) Medication multivitamin tablet, Sig Take 1 tablet by mouth twice daily., Start Date 06/10/16, End Date , Taking? , Authorizing Provider Angle Ramos(Hist) Medication loratadine(CLARITIN 10 MG TAB), Sig Take one(1) tablet daily as needed for allergy symptoms., Start Date 03/13/10, End Date , Taking? , Authorizing Provider Karina Lamb MD Other OTC med/supplements: None Medication Review: - ANY HIGH RISK MEDICATIONS (STOPP CRITERIA): YES occasional ambien ALLERGIES Allergen Reactions Elliot Inhibitors Cough Cats Other: See Comments Norvasc [Amlodipine* Intolerance Lower extremity swelling Poison Kendy Other: See Comments Spreads all over body. Adhesive Tape (Baylee* Rash Dust Mites Other: See Comments Sneezing, sore throat, burning eyes Tree And Shrub Poll* Itching Itching in eyes and arms Review of Systems Difficulty chew/swallow: no Pain: no Tremor: no Incontinence - During the last 3 months did you leak urine? NO - Type?: mixed incontinence Constipation/Change in bowel habits: NO Vision No vision problems reported Follows with golf starter and ranger:NO Hearing - Hearing aid : Hearing impairment, no hearing aids Falls: .: Falls in the last 12 months: None. If + falls: Physical Exam: General: Well-nourished, kempt Ambulatory: without assistance Mobility Aid: Wheelchair Head: Normocephalic Eyes: conjunctiva/corneas normal, EOMI Ears: R TM - clear with good landmarks, nl light reflex, L TM - clear with good landmarks, nl lightreflex Nose: clear Oropharynx: moist without lesions, teeth in good repair Neck: supple and no adenopathy Cardio: regular rate and rhythm Pulmonary: Lungs clear to auscultation bilaterally Extremities: Extremities normal. No deformities, edema, or skin discoloration. Musculoskeletal: Normal Gait Neuro:Deep Tendon reflexes :4/4 , Both Gait: Unsteadiness: NO Shuffling: NO Tremors: NO Slowness: NO Armando Cognitive Exam (MOCA): Total Score: 30/30 MoCA Past Scores No data to display Mini-Mental State Exam (MMSE): 30/30 CDR Dementia Scale 1) Subjective Memory Loss: YES 2) Measurable Memory Loss: NO 3) IADLs: NO 4) BADLs: NO Driving Safely: Yes > 50% 6) Medications: No Level: CDR 0 Depression Screening/Evaluation: GDS: 2/10 Labs: reviewed recent labs, tsh and vit b12, they are all normal Brain Imaging: None available today No diagnosis found. Assessment and Plan: I. Medical /Mental Status/Decision Making Capacity 1-Mentation # Subjective memory loss with measurable memory loss with MMSE, MOCA score of 30/30 ... Patient does not have functional impairment. It appears that her cognitive impairment was during the time that she was ill and it has since resolved. She herself has reported that she is much much better now than she was before. Her vitamin B-12 thyroid are normal and she had a CT scan done a while ago which did not show any specific abnormalities. No further testing is required at this time. Mild cognitive impairment has resolved and she is 2-Mobility -- No concerns with mobility at this time. She is obese and is working on her diet and exercise. She goes to the gym regularly and she is encouraged to keep this up. 3-Medications and chronic medical conditions -If cognition ever becomes a concern then we will consider stopping the Ambien which she takes occasionally. 4- Matters Most - Deneen Garcia MD [facility] documented in this encounterAdena [facility] System08-01-2024 Telephone encounter Note * Telephone Encounter - Usama Galvan LPN - 05/20/2024 8:22 AM EDT Called and updated patient to keep Geriatric appointment. Voiced understanding Usama Galvan LPN May 20, 2024 8:23 AM [facility] Miscellaneous Notes* Telephone Encounter - Usama Galvan LPN - 05/20/2024 8:22 AM EDT Called and updated patient to keep Geriatric appointment. Voiced understanding Usama Galvan LPN May 20, 2024 8:23 AM * Telephone Encounter - Deneen Garcia MD - 05/18/2024 5:07 PM EDT Yes Please keep the apt. Deneen Renee MD * Telephone Encounter - Charles Ibarra LPN - 05/18/2024 2:24 PM EDT Pt states she has an upcoming geriatrics appt with Dr. Garcia after missing her mini cog clock test.Pt states she is feeling much better, less confused then what she was and feeling less weak. Pt asking if Dr. Garcia still needs to see her for the Katelyn appt? Please advise. Charles Ibarra LPN documented in this encounterAdena Health System07-31-2024 History of Present illness Narrative* Mila Norman MA - 05/19/2024 4:02 PM EDT POPULATION HEALTH NAVIGATION OUTREACH Action/FARIDA Kang replied and states she only gets mammogram every 2 years. Sent [employer] message to the patient. Reason for Outreach Returned Call/MyChart Patient Contacted: Unable or unnecessary to reach patient: Left message Navigation Signature: Mila Norman MA May 19, 2024 4:02 PM * Mila Norman MA - 05/19/2024 7:48 AM EDT POPULATION HEALTH NAVIGATION OUTREACH Action/FARIDA VORA MYCHART MAMMOGRAMS due now Reason for Outreach Care Gap/HCC or Scheduling Wellness Visits Care Gaps due: Breast Cancer Screening Patient Contacted: Unable or unnecessary to reach patient: Left message [employer] message sent Navigation Signature: Mila Norman MA May 19, 2024 7:48 AM documented in this encounterAdena Health System07-31-2024 Telephone encounter Note * Telephone Encounter - Evelyn Wilkes MA - 05/19/2024 11:23 AM EDT Forms signed by Dr. Garcia and mailed as requested. Copy sent to mark. Evelyn Wilkes MA [facility] Miscellaneous Notes* Telephone Encounter - Evelyn Wilkes MA - 05/19/2024 11:23 AM EDT Forms signed by Dr. Garcia and mailed as requested. Copy sent to scanning. Evelyn Wilkes MA * Telephone Encounter - Evelyn Wilkes MA - 05/19/2024 8:27 AM EDT Spoke with patient; 03/29/24-05/14/24. Forms updated. Evelyn Wilkes MA * Telephone Encounter - Deneen Garcia MD - 05/18/2024 5:08 PM EDT Please ask her the start and end days she wants me to put in , Regards, Deneen Garcia MD * Telephone Encounter - Evelyn Wilkes MA - 05/18/2024 3:55 PM EDT Patient dropped off insurance form for being unable to travel to [place]. Pt reports this was discussed at [facility] with PCP. Forms placed on Dr. Garcia's desk for review and signature. Once signed, please mail in attached addressed envelope. Make copy for scanning. Evelyn Wilkes MA documented in this encounterAdena Health System07-31-2024 Telephone encounter Note * Telephone Encounter - Evelyn Wilkes MA - 05/19/2024 8:27 AM EDT Spoke with patient; 03/29/24-05/14/24. Forms updated. Evelyn Wilkes MA [facility] Telephone encounter Note* Telephone Encounter - Deneen Garcia MD - 05/18/2024 5:08 PM EDT Please ask her the start and end days she wants me to put in , Deneen Renee MD [facility]-30-[facility] Telephone encounter Note* Telephone Encounter - Deneen Garcia MD - 05/18/2024 5:07 PM EDT Yes Please keep the apt. Deneen Renee MD [facility] Telephone encounter Note* Telephone Encounter - Evelyn Wilkes MA - 05/18/2024 3:55 PM EDT Patient dropped off insurance form for being unable to travel to [place]. Pt reports this was discussed at [facility] with PCP. Forms placed on Dr. Garcia's desk for review and signature. Once signed, please mail in attached addressed envelope. Make copy for scanning. Evelyn Wilkes MA [facility]-30-[facility] Telephone encounter Note* Telephone Encounter - Charles Ibarra LPN - 05/18/2024 2:24 PM EDT Pt states she has an upcoming geriatrics appt with Dr. Garcia after missing her mini cog clock test.Pt states she is feeling much better, less confused then what she was and feeling less weak. Pt asking if Dr. Garcia still needs to see her for the Katelyn appt? Please advise. Charles Ibarra LPN [facility]07-29-[facility] Telephone encounter Note* Telephone Encounter - Kim Laurent MA - 05/17/2024 11:34 AM EDT Pt notified of results via [employer]. Kim Laurent Ma [facility]07-29-[facility] Telephone encounter Note* Telephone Encounter - Kim Laurent MA - 05/17/2024 11:34 AM EDT ----- Message from Sugey Salguero APRN.POINT OF CARE TECHNICIAN sent at 05/17/2024 7:20 AM EDT ----- Please let patient know no evidence of discrete mass, fluid collection or lymphadenopathy of left lateral neck. Sugey Salguero APRN.POINT OF CARE TECHNICIAN [facility]07-29-[facility] Miscellaneous Notes* Telephone Encounter - Kim Laurent MA - 05/17/2024 11:34 AM EDT Pt notified of results via Kerlinkhart. Kim Laurent Ma * Telephone Encounter - Kim Laurent MA - 05/17/2024 11:34 AM EDT ----- Message from Sugey Salguero APRN.POINT OF CARE TECHNICIAN sent at 05/17/2024 7:20 AM EDT ----- Please let patient know no evidence of discrete mass, fluid collection or lymphadenopathy of left lateral neck. Sugey Salguero APRN.POINT OF CARE TECHNICIAN documented in this encounterAdena Health System07-25-2024 History of Present illness Narrative* Lavonne Carlson, FIOR - 05/13/2024 4:00 PM EDT Radiology Service Progress Note PATIENT NAME: Jessica Worrell DATE OF SERVICE: May 13, 2024 TIME: 4:19 PM PATIENT IDENTITY VERIFICATION COMPLETED USING TWO (2) IDENTIFIERS: Name and Date of confirmedby patient verbally. FALL SCREENING: Has the patient had 2 falls in the last year or 1 fall with injury or currently using an Ambulatory Assistive Device (Walker, Cane, Wheelchair, Crutches, etc.)? No PATIENT GENDER DATA: Female. status: : No status: NO. PATIENT RELEVANT IMPLANT DATA REVIEWED: Not Applicable PATIENT PRESENTS WITH AN IMPLANTABLE OR ATTACHED SPORTS BOOK BOARD ATTENDANT: No RADIOLOGY DEPARTMENT: Ultrasound PERIPHERAL IV DATA: Not applicable SIGNED BY: Lavonne Carlson RDMS RVT May 13, 2024 4:19 PM documented in this encounterAdena Health System07-18-2024 Telephone encounter Note * Telephone Encounter - Josselin Stevens APRN.CNP - 05/06/2024 12:10 PM EDT Reviewed note. Brain fog resulting in memory change. Consult ordered. Thank you Josselin Stevens APRN.CNP [facility] Miscellaneous Notes* Telephone Encounter - Josselin Stevens APRN.CNP - 05/06/2024 12:10 PM EDT Reviewed note. Brain fog resulting in memory change. Consult ordered. Thank you Josselin Stevens APRN.CNP * Telephone Encounter - Evelyn Wilkes MA - 05/04/2024 2:54 PM EDT Order for geriatric consult pended for memory changes. Please file if agreeable. Evelyn Wilkes MA documented in this encounterAdena Health System07-16-2024 Telephone encounter Note * Telephone Encounter - Evelyn Wilkes MA - 05/04/2024 2:54 PM EDT Order for geriatric consult pended for memory changes. Please file if agreeable. Evelyn Wilkes MA [facility] History of Present illness Narrative* Deneen Garcia MD - 05/04/2024 1:40 PM EDT Images from the original note were not included. Jessica Worrell is a 73 year old female here for a Medicare wellness visit. Medicare Health Risk Assessment General Health Exercise: Minutes/Day 40 min Exercise: Days/Week 4 days Alcohol: Daily Use Monthly or less Alcohol: Drinks/Day 1 or 2 Alcohol: 6 or more drinks Never Feel off balance yes Concerns: Teeth/Dentures no Concerns: Sexual function no Troubled by feelings yes Frequency: Eating healthy diet Yes ADLs requiring help no Safety precautions in home/vehicle yes Smoke, vape, chews tobacco No Difficulty hearing No Difficulty seeing No Current Providers Specialists: I have reviewed specialist-related care of the patient in the medical record. Medical/Family history review Reviewed and updated problem list. Opioid use review Opioid Medications (last 90 days) No data to display Anxiety/Depression screening Recommendation: medication management Cognitive screening 4 Cognitive screening reviewed and No further action needed (score 3-5). Functional Observation Was the patient's Timed Up & Go test unsteady or ? 12 seconds? Yes Advance Care Planning Surrogate decision maker and/or advance care plan documented Measurements BP 160/100 Pulse 104 Resp 18 Wt 223 lb (101.2kg) SpO2 96% Vision Screening: Follows with optometry/ophthalmology Assessment/Plan Medicare annual wellness visit, initial (Z00.00) - Counseled on healthy diet and regular exercise - Fall avoidance information provided - Personalized prevention plan provided Reason for Visit Patient presents with: ER F/U: [facility] 04/26/24 at [facility] Jessica Worrell is a 73 year old female who presents here today for Above Complaints.. Health Maintenance BP Controlled (<130/80) RSV Vaccine(1 - 1-dose 60+ series) Advance Directive Discussion Covid-19 Vaccine( season) Mammogram Screening HPI This is a 73-year-old female with a past medical history of obesity, hypertension, osteoarthritis, reflux, GERD. She had some swelling in the left neck, since a month that was treated as cellulitis and low grade sinus infection in the office, she initially felt better but then felt worse and was in the ER a fewdays later Her wbcs were elevated at 22,000, they are now normal. Today she notes feels a little better than before. Still a little foggy In the brain, and tired. She has white coat hypertension, she needs a repeat bp. She as been working at eating better and trying to lose weight. No problem-specific Assessment & Plan notes found for this encounter. PAST MEDICAL HISTORY Diagnosis Date Acute gastritis without mention of hemorrhage Allergic rhinitis, cause unspecified BMI 40.0-44.9, adult ([facility]) 08/02/2013 Cataract Corneal abrasion 20 y ago [...] reviewed and discussed today Current Outpatient Medications: losartan (COZAAR) 50 mg tablet zolpidem (AMBIEN) 10 mg omeprazole (PRILOSEC) 40 mg capsule estradiol (ESTRACE) 0.01 % (0.1 mg/gram) vaginal cream meloxicam (MOBIC) 15 mg tablet loperamide HCl (IMODIUM) 2 mg tab acetaminophen (TYLENOL ARTHRITIS PAIN) 650 mg CR tablet clobetasol (TEMOVATE) 0.05 % ointment COMPOUNDED PRESCRIPTION multivitamin tablet loratadine(CLARITIN 10 MG TAB) Ferrous Gluconate 225 mg (27 mg iron) tab MAGNESIUM ORAL multivitamin with minerals (HAIR,SKIN AND NAILS ORAL) Review of Systems CONSTITUTIONAL: No fevers, chills [...] or numbness of concern. Physical Exam BP 160/100 Pulse 104 Resp 18 Wt 101.2 kg (223 lb) SpO2 96% BMI 39.50 kg/m General appearance: Well appearing, alert, in [...] or cyanosis. Good capillary refill. ASSESSMENT/PLAN: 1. Medicare annual wellness visit, subsequent - ICD9: V70.0, ICD10: Z00.00 (primary diagnosis) - Counseled on healthy diet and regular exercise 2. Essential hypertension - ICD9: 401.9, ICD10: I10 Her blood pressure is elevated today. Continue current medications 3. Iron deficiency anemia secondary to inadequate dietary iron intake - ICD9: 280.1, ICD10: D50.8 Encouraged her to take iron regularly 4. Memory change - ICD9: 780.93, ICD10: R41.3 Will schedule her for the geriatric consult for 5. Fatigue, unspecified type - ICD9: 780.79, ICD10: R53.83 From her current illness although it is unclear what her illness is. Name asked her to get her ultrasound of the neck scheduled 6. Elevated vitamin B12 level - ICD9: 790.99, ICD10: R74.8 - METHYLMALONIC ACID - FOLATE, SERUM Deneen Garcia MD documented in this encounterA[facility] History of Present illness Narrative* Sunita Ewing APRN.POINT OF CARE TECHNICIAN - 04/23/2024 8:19 AM EDT SUBJECTIVE Jessica Worrell is a 73 year old female here today for a check up on her medical problems. Chief Complaint Patient presents with: Recheck: cellulitis on right shoulder treated with Augmentin and sinus infection ER F/U: x 2 trips to ER as she was feeling worse and that is why she went back to ER 2nd time HPI Jessica Worrell is a 73 year old female. She is an established patient of Deneen Garcia MD. Here today for follow up, concerns of still not feeling well, very fatigued and dealing with brain fog. Symptoms on going the last month or so. She was first seen with primary care 03/31/2024 for symptoms that had been on going about 2 weeks at that point. Followed up with Josselin 04/01 and diagnosed with possible sinusitis and cellulitis. Treated with Augmentin. [place] testing was negative but CBC showed WBCs elevated at 22. She was seen and evaluated in ER at [facility] on both 04/02 and 04/03. Recheck with Wendy 04/08. At this point she still notes some lymph node enlargement to the neck but the possible cellulitis seems to be resolved. Still with the fatigue, weakness, brain fog. Concerns about how she is feeling overall. Also concerned because she has a cruise coming up that is going to require increased activity. Her medications were reviewed today and her list is now up to date. Medications Current Outpatient Medications Medication Sig losartan (COZAAR) 50 mg tablet Take 1 tablet by mouth two times a day. zolpidem (AMBIEN) 10 mg Use half to one tablet as needed. omeprazole (PRILOSEC) 40 mg capsule Take 1 capsule by mouth once daily. estradiol (ESTRACE) 0.01 % (0.1 mg/gram) vaginal cream APPLY 1 GRAM OF CREAM TO LOWER VAGINA AND A PEA SIZED AMOUNT TO THE OPENING OF THE VAGINA 3 TIMES WEEKLY meloxicam (MOBIC) 15 mg tablet Take 1 tablet by mouth once daily. loperamide HCl (IMODIUM) 2 mg tab Take 1 tablet by mouth as needed. acetaminophen (TYLENOL ARTHRITIS PAIN) 650 mg CR tablet Take 1 tablet by mouth every 8 hours as needed. clobetasol (TEMOVATE) 0.05 % ointment Apply half of one gkxwpe-ayl-ykij to cover the affected area two days a week. Ferrous Gluconate 225 mg (27 mg iron) tab Take 1 tablet by mouth once daily. multivitamin tablet Take 1 tablet by mouth twice daily. loratadine(CLARITIN 10 MG TAB) Take one(1) tablet daily as needed for allergy symptoms. MAGNESIUM ORAL Take by mouth. (Patient not taking: Reported on 04/23/2024) multivitamin with minerals (HAIR,SKIN AND NAILS ORAL) Take by mouth. (Patient not taking: Reported on 04/23/2024) COMPOUNDED PRESCRIPTION Exercise 30 minutes daily 5 days weekly No current facility-administered medications for this visit. ALLERGIES Allergen Reactions Elliot Inhibitors Cough Cats Other: See Comments Norvasc [Amlodipine* Intolerance Lower extremity swelling Poison Kendy Other: See Comments Spreads all over body. Adhesive Tape (Baylee* Rash Dust Mites Other: See Comments Sneezing, sore throat, burning eyes Tree And Shrub Poll* Itching Itching in eyes and arms ACTIVE PROBLEM LIST Chronic Diarrhea - 03/09/2013 (L priority) Closed Fracture of Head of Right Humerus With Routine Healing - 01/07/2024 Bilateral Chronic Knee Pain - 07/15/2023 Balance Problem - 07/15/2023 Insomnia - 11/19/2019 Hiatal Hernia - 11/19/2019 Myopia of Both Eyes - 02/01/2019 Arthritis of Right Shoulder Region - 02/16/2018 Impingement Syndrome of Right Shoulder - 02/13/2018 Glucose Intolerance (Impaired Glucose Tolerance) - 08/06/2016 Essential Hypertension - 09/01/2015 Pain in Joint, Shoulder Region - 12/23/2013 Tubular Adenoma of Colon - 01/13/2013 Comment: EGC/Colonoscopy 12/31/2012 Primary Localized Osteoarthrosis, Lower Leg - 07/10/2009 Osteopenia Acute Gastritis Without Mention of Hemorrhage - 10/12/2007 Iron Deficiency Anemia, Unspecified - 09/15/2007 Comment: Colonoscopy in 09-25: diverticulosis with no polyps EGD 09-25: erythema in the distal antrum-h pylori testing done Allergic Rhinitis, Cause Unspecified Gastroesophageal Reflux Disease Without Esophagitis Social History Tobacco Use Smoking status: Never Smokeless tobacco: Never Vaping Use Vaping Use: Never used Substance Use Topics Alcohol use: No Drug use: No Review of Systems Constitutional: Positive for fatigue. Respiratory: Negative. Cardiovascular: Negative. Neurological: Positive for weakness. OBJECTIVE BP 130/84 Pulse 90 Wt 221 lb (100.2kg) SpO2 98% Physical Exam Vitals and nursing note reviewed. Constitutional: General: She is awake. She is not in acute distress. Appearance: Normal appearance. She is well-developed and well-groomed. She is not ill-appearing, toxic-appearing or diaphoretic. HENT: Head: Normocephalic. Right Ear: External ear normal. Left Ear: External ear normal. Nose: Nose normal. Eyes: General: Vision grossly intact. Conjunctiva/sclera: Conjunctivae normal. Pupils: Pupils are equal, round, and reactive to light. Neck: Vascular: No JVD. Trachea: Trachea normal. Comments: Some slight cervical lymphadenopathy Cardiovascular: Rate and Rhythm: Normal rate and regular rhythm. Pulses: Normal pulses. Heart sounds: Normal heart sounds. No murmur heard. Pulmonary: Effort: Pulmonary effort is normal. No accessory muscle usage, prolonged expiration or respiratory distress. Breath sounds: Normal breath sounds. Musculoskeletal: Cervical back: Neck supple. Lymphadenopathy: Cervical: Cervical adenopathy present. Right cervical: Superficial cervical adenopathy present. Left cervical: Superficial cervical adenopathy present. Skin: General: Skin is warm and dry. Capillary Refill: Capillary refill takes less than 2 seconds. Neurological: General: No focal deficit present. Mental Status: She is alert and oriented to person, place, and time. Mental status is at baseline. Psychiatric: Attention and Perception: Attention and perception normal. Mood and Affect: Mood and affect normal. Speech: Speech normal. Behavior: Behavior normal. Behavior is cooperative. Thought Content: Thought content normal. Cognition and Memory: Cognition and memory normal. Judgment: Judgment normal. ASSESSMENT/PLAN: 1. Leukocytosis, unspecified type - ICD9: 288.60, ICD10: D72.829 (primary diagnosis) Repeat labs and check some others, still an unclear cause. If WBCs persistently elevated we could consider an alternative antibiotic to her prior treatment with Augmentin. - COMPLETE BLOOD COUNT AND DIFFERENTIAL - COMPREHENSIVE METABOLIC PANEL - LYME AB LATE >30 DAYS SYMPTOMS 2. Enlarged lymph node in neck - ICD9: 785.6, ICD10: R59.0 See #1 - COMPLETE BLOOD COUNT AND DIFFERENTIAL - COMPREHENSIVE METABOLIC PANEL - LYME AB LATE >30 DAYS SYMPTOMS 3. Malaise and fatigue - ICD9: 780.79, ICD10: R53.81, R53.83 See #1 - COMPLETE BLOOD COUNT AND DIFFERENTIAL - IRON AND TIBC - COMPREHENSIVE METABOLIC PANEL - THYROID STIMULATING HORMONE - VITAMIN D 25 HYDROXY - MAGNESIUM - FERRITIN - VITAMIN B12 - LYME AB LATE >30 DAYS SYMPTOMS 4. Vitamin D deficiency - ICD9: 268.9, ICD10: E55.9 - VITAMIN D 25 HYDROXY 5. Encounter for therapeutic drug monitoring - ICD9: V58.83, ICD10: Z51.81 - COMPLETE BLOOD COUNT AND DIFFERENTIAL - COMPREHENSIVE METABOLIC PANEL - MAGNESIUM Portions of this note have been entered by ancillary staff. I have reviewed and when necessary edited, so that they are an adequate record of my encounter with this patient Please note that parts of this document were created using voice recognition software and therefore may contain grammatical errors. Patient verbalizes understanding of instructions from today's visit and in agreement with treatmentplan. Questions answered. Agrees to call the office if questions, concerns of issues with acute symptoms not improving or if they worsen. See diagnoses and orders for additional plan(s). Allergies and medications were reviewed, list was updated, and refills given if needed. Past medical, surgical, social, and family history reviewed and updated as appropriate. Encouraged proper diet & exercise as well as compliance with taking medications. Age- appropriate health preventative measures were discussed. Return if symptoms worsen or fail to improve, for Keep next scheduled appointment.. Sunita Ewing APRN-HERACLIO documented in this encounterAdena [facility]07-03-2024 Telephone encounter Note * Telephone Encounter - Rand Granados LPN - 04/21/2024 4:56 PM EDT Spoke with pt and apt booked for Friday04/23/24 with provider. If things change pt will go to ER. Rand Granados LPN [facility]07-[facility] Miscellaneous Notes* Telephone Encounter - Rand Granados LPN - 04/21/2024 4:56 PM EDT Spoke with pt and apt booked for Friday04/23/24 with provider. If things change pt will go to ER. Rand Granados LPN * Telephone Encounter - Josselin Stevens APRN.CNP - 04/21/2024 4:30 PM EDT She needs to be seen by a provider. Thank you Josselin Stevens APRN.HERACLIO * Telephone Encounter - Ana María Ngo RN - 04/21/2024 3:53 PM EDT Patient calling to say she is not feeling better and is having continued fatigue, unable to walk without assistance and only a short distance (about 20 feet) without assistance. She says she feels weak and her legs feel heavy like horse legs. She says her lymph gland in left jaw is still swollen. Right side swelling with cellulitis has improved. Still palpable but not red nor tender. She says is also having episodes of brain fog. No same day appointments available at this time. She is asking for PCP recommendation. Ana María Ngo RN documented in this encounterAdena [facility] System07-03-2024 Telephone encounter Note * Telephone Encounter - Josselin Stevens APRN.HERACLIO - 04/21/2024 4:30 PM EDT She needs to be seen by a provider. Thank you Josselin Stevens APRN.HERACLIO [facility]07-[facility] Telephone encounter Note* Telephone Encounter - Ana María Ngo RN - 04/21/2024 3:53 PM EDT Patient calling to say she is not feeling better and is having continued fatigue, unable to walk without assistance and only a short distance (about 20 feet) without assistance. She says she feels weak and her legs feel heavy like horse legs. She says her lymph gland in left jaw is still swollen. Right side swelling with cellulitis has improved. Still palpable but not red nor tender. She says is also having episodes of brain fog. No same day appointments available at this time. She is asking for PCP recommendation. Ana María Ngo RN [facility]06-25[facility] History of Present illness Narrative* Dariel Patel, OD - 04/13/2024 2:58 PM EDT 1. Diplopia Adjusted prism to account for increase in diplopia Educated pt on adaptation Longstanding history of high esophoria- appears stable 2. Combined forms of age-related cataract of both eyes Mild- observe 3. Myopia of both eyes 4. Presbyopia Finalized spec rx Follow-up in 1 year or sooner as needed Dariel Patel, ALANNA April 13, 2024 2:58 PM documented in this encounterAdena [facility] System06-20-2024 Telephone encounter Note * Telephone Encounter - Rand Granados LPN - 04/08/2024 4:13 PM EDT Martina with [facility] Scheduling called for US order. Faxed to [phone]. Done. Rand Granados LPN [facility] Miscellaneous Notes* Telephone Encounter - Rand Granados LPN - 04/08/2024 4:13 PM EDT Martina with [facility] Scheduling called for US order. Faxed to [phone]. Done. Rand Granados LPN documented in this encounterAdena Health System06-20-2024 History of Present illness Narrative* Hilda, VIVI Schwab.POINT OF CARE TECHNICIAN - 04/08/2024 1:11 PM EDT CC: Patient presents with: Recheck: 6 month Follow up, cellulitis HPI Jessica Worerll is a 73 year old female who presents today for follow up on recent infection. Seen Last week with signs of sinus infection with enlarged tender lymph nodes. WBC elevated and right lymph became red and tender the next day so sent to ER. Had CT of soft tissue showing inflammation to right supraclavicular inflammation and enlarged lymph nodes, WBC was lower but still decreased.Went back the next day and WBC was normal. Returns today with redness improving. Still feeling fatigued and lymph nodes still enlarged but no longer tender. Still with an intermittent cough. No further fever or chills, redness resolved. Denies shortness of breath or chest pain. HTN: Ms. Worrell indicates that she is feeling well and denies any symptoms referable to elevated blood pressure. Specifically denies headache, chest pain, palpitations, and dyspnea. Patient denies any side effects of her medication(s) and is compliant with their regimen. She does not check BP's generally. Jessica denies regular aerobic exercise. She watches her diet for sodium, low fat and low cholesterol most of the time. Last 3 Encounter BP Readings: Date: BP: 04/08/2024 122/80 04/01/2024 128/78 03/31/2024 138/82 Has intermittent swelling to feet for the past 6 months. Resolves with elevation when it occurs andshe often wears compression socks. With the antibiotic she has had bright red blood on stool with clots. Assumed due to hemorrhoid so using preparation H and is improving. Had consult for dermatology for routine evaluation of skin. NO history of skin cancer but has family history of personal history of sunburns. Would like to be reconsulted to Dermatology for routine eval. REVIEW OF SYSTEMS See HPI PAST MEDICAL HISTORY Diagnosis Date Acute gastritis without mention of hemorrhage Allergic rhinitis, cause unspecified BMI 40.0-44.9, adult ([facility]) 08/02/2013 Cataract Corneal abrasion 20 y ago [...] OVARY 10/20/2002 Hysterectomy, BETO left ovaries ALLERGIES Elliot Inhibitors, Cats, Norvasc [Amlodipine Besylate], Poison Kendy, Dust Mites, and Tree AndShrub Pollen MEDICATIONS amoxicillin-clavulanate potassium (AUGMENTIN) 875-125 mg per tablet Take 1 tablet by mouth two times a day for 10 days. zolpidem (AMBIEN) 10 mg Use half to one tablet as needed. omeprazole (PRILOSEC) 40 mg capsule Take 1 capsule by mouth once daily. estradiol (ESTRACE) 0.01 % (0.1 mg/gram) vaginal cream APPLY 1 GRAM OF CREAM TO LOWER VAGINA AND A PEA SIZED AMOUNT TO THE OPENING OF THE VAGINA 3 TIMES WEEKLY meloxicam (MOBIC) 15 mg tablet Take 1 [...] 0.05 % ointment Apply half of one kmawvx-zpy-anky to cover the affected area two days a week. Ferrous Gluconate 225 mg (27 mg iron) tab Take 1 tablet by mouth once daily. MAGNESIUM ORAL Take by mouth. multivitamin with minerals (HAIR,SKIN AND NAILS ORAL) Take by mouth. COMPOUNDED PRESCRIPTION Exercise 30 minutes daily 5 [...] No Drug use: No PHYSICAL EXAM BP 122/80 Pulse 120 Resp 16 Wt 101.2 kg (223 lb) SpO2 97% BMI 39.50 kg/m General Appearance: well appearing, in no acute distress, alert Skin: Skin color, texture, turgor normal for age; redness resolved Eyes: conjunctiva pink and moist, no icterus, sclera white, non-injected Neck: Thyroid normal size and symmetric without palpable nodules, Neck supple Lymph nodes: No cervical lymphadenopathy left and right supraclavicular nodes still enlarged but nolonger tender. Lungs: Lungs clear to auscultation. No wheezing, rhonchi, rales. Heart: RRR without murmur, gallop, or rubs. No ectopy Health maintenance reviewed with patient: RSV Vaccine(1 - 1-dose 60+ series) Never done Advance Directive Discussion due on 10/20/2023 Covid-19 Vaccine( season) due on 01/09/2024 Mammogram Screening due on 04/14/2024 DTaP,Tdap,Td Vaccine(2 - Td or Tdap) due on 09/26/2024 Annual PCP Team Chronic Disease Visit due on 04/01/2025 BP Controlled (<130/80) due on 04/01/2025 Diabetes Screening due on 04/01/2027 Lipid Screening due on 06/24/2028 Colorectal Cancer Screening due on 02/22/2032 Bone Density Screening Completed Influenza Vaccine Completed Behavioral Health Screening Completed Hepatitis C Screening Completed Shingrix Vaccine Completed Pneumococcal Vaccine: 65+ Completed DATA REVIEWED: Most recent labs and imaging results. Outside chart from [facility] reviewed. ASSESSMENT/PLAN: 1. Cellulitis, unspecified cellulitis site - ICD9: 682.9, ICD10: L03.90 (primary diagnosis) Resolved - finish antibiotic as ordered Follow up for any further redness, tenderness, or concern 2. Leukocytosis, unspecified type - ICD9: 288.60, ICD10: D72.829 Resolved within a few days of using antibiotic 3. Enlarged lymph node in neck - ICD9: 785.6, ICD10: R59.0 Follow back up in 4 weeks, if still enlarged will need US 4. Dependent edema - ICD9: 782.3, ICD10: R60.9 Discussed using of compression socks, elevating legs as able, and low sodium diet. Start being more active as well to improve this. 5. Essential hypertension - ICD9: 401.9, ICD10: I10 - Controlled - Continue current medications - Recommend home blood pressure monitoring, to bring results to next visit - Encouraged sodium restriction, DASH or Mediterranean diet - Recommend regular aerobic exercise 6. Skin exam, screening for cancer - ICD9: V76.43, ICD10: Z12.83 - CONSULT TO DERMATOLOGY 7. Bleeding hemorrhoid - ICD9: 455.8, ICD10: K64.9 With this resolving with treatment of known hemorrhoid, not fully examined in office If this begins again we need to examine rectum, stool, and blood counts. Prescription instructions reviewed with patient as applicable. Potential red flag symptoms discussed with the patient. Reviewed appropriate action plan to take if red flag symptoms occur. Patient agreeable to treatment plan. Josselin Stevens APRN.CNP Medical Decision Making: Problems: Minimal: Self-limited or minor problem Low: Stable chronic illness Moderate: Acute illness with systemic symptoms Data: Unique source(s) for external note(s) reviewed: 2 Risk: Low: Low risk from testing/treatment Medical Decision Making Level: 3 - Low documented in this encounterAdena Health System06-17-2024 Telephone encounter Note * Telephone Encounter - Josselin Stevens APRN.CNP - 04/05/2024 12:08 PM EDT Glad to hear she is doing better. Will discuss and review further at follow up appointment. Josselin Stevens APRN.CNP [facility]06-[facility] Miscellaneous Notes* Telephone Encounter - Josselin Stevens APRN.CNP - 04/05/2024 12:08 PM EDT Glad to hear she is doing better. Will discuss and review further at follow up appointment. Josselin Stevens APRN.CNP * Telephone Encounter - Keesha Cortes MA - 04/05/2024 10:53 AM EDT Spoke with patient, the cellulitis is almost resolved. Patient is still having fatigue but feels the AIB is working. Patient did return to ER on Friday, labs have improved and complete virus panel was completed. Results pulled up online in [employer]as[employer] with patient and verified that test were all negative. Patient will keep upcoming appointment this week with Josselin. * Telephone Encounter - Josselin Stevens APRN.CNP - 04/05/2024 9:25 AM EDT Please see how patient is doing after her ER visit and all the antibiotic treatments. Thank you Josselin Stevens APRN.CNP documented in this encounterAdena Health System06-17-2024 Telephone encounter Note * Telephone Encounter - Keesha Cortes MA - 04/05/2024 10:53 AM EDT Spoke with patient, the cellulitis is almost resolved. Patient is still having fatigue but feels the AIB is working. Patient did return to ER on Friday, labs have improved and complete virus panel was completed. Results pulled up online in [employer] with patient and verified that test were all negative. Patient will keep upcoming appointment this week with Josselin. [facility] Telephone encounter Note* Telephone Encounter - Josselin Stevens APRN.CNP - 04/05/2024 9:25 AM EDT Please see how patient is doing after her ER visit and all the antibiotic treatments. Thank you Josselin Stevens APRN.CNP [facility]06-[facility] Telephone encounter Note* Telephone Encounter - Josselin Stevens APRN.CNP - 04/02/2024 10:13 AM EDT Patient in lobby with right lower neck and shoulder swollen, red, and hot to touch. Sent to ER. Refused to go by squad or call to get a ride. ER called and given report to Dr. Small. CXR and US canceled at this time. Patient instructed to keep follow up. Josselin Stevens APRN.CNP [facility] Miscellaneous Notes* Telephone Encounter - Josselin Stevens APRN.CNP - 04/02/2024 10:13 AM EDT Patient in lobby with right lower neck and shoulder swollen, red, and hot to touch. Sent to ER. Refused to go by squad or call to get a ride. ER called and given report to Dr. Small. CXR and US canceled at this time. Patient instructed to keep follow up. Josselin Stevens APRN.CNP * Telephone Encounter - Keesha Cortes MA - 04/02/2024 9:11 AM EDT Patient notified. * Telephone Encounter - Josselin Stevens APRN.CNP - 04/02/2024 9:03 AM EDT White count is very high. I am ordering urine, chest xray and making the US STAT. She needs to get all this done today. If she feels any worse, even the slightest she needs to go straight to the ER. Thank you Josselin Stevens APRN.CNP documented in this encounterAdena Health System06-14-2024 Telephone encounter Note * Telephone Encounter - Keesha Cortes MA - 04/02/2024 9:11 AM EDT Patient notified. [facility] Tele[facility] encounter Note* Telephone Encounter - Josselin Stevens APRN.CNP - 04/02/2024 9:03 AM EDT White count is very high. I am ordering urine, chest xray and making the US STAT. She needs to get all this done today. If she feels any worse, even the slightest she needs to go straight to the ER. Thank you Josselin Stevens APRN.CNP [facility] History of Present illness Narrative* Josselin Stevens APRN.CNP - 04/01/2024 11:43 AM EDT CC: Patient presents with: Recheck: Follow up, lump on neck HPI Jessica Worrell is a 73 year old female who presents today for ill feelings and lump to neck. Started feeling fatigued a few weeks ago and getting worse. Has had a temp of a 100 degrees and hashad a chill, also has had sore throat for weeks as well she thought was from allergies. Left lower neck had an enlarged lymph node but the right side yesterday became swollen and painful. Some wheezing but has had this before depending on how she lays. Also complaining of sinus congestion and having brown yellow nasal drainage. Denies cough, shortness of breath, ear pain, headaches, syncope, chest pain, or palpitations. Saw aprovider yesterday this an has order for US but has not been completed yet. No known sick contacts, was at a [employer] service this past weekend. REVIEW OF SYSTEMS See HPI PAST MEDICAL HISTORY Diagnosis Date Acute gastritis without mention of hemorrhage Allergic rhinitis, cause unspecified BMI 40.0-44.9, adult ([facility]) 08/02/2013 Cataract Corneal abrasion 20 y ago [...] OVARY 10/20/2002 Hysterectomy, BETO left ovaries ALLERGIES Elliot Inhibitors, Cats, Norvasc [Amlodipine Besylate], Poison Kendy, Dust Mites, and Tree AndShrub Pollen MEDICATIONS zolpidem (AMBIEN) 10 mg Use half to one tablet as needed. omeprazole (PRILOSEC) 40 mg capsule Take 1 capsule by mouth once daily. estradiol (ESTRACE) 0.01 % (0.1 mg/gram) vaginal cream APPLY 1 GRAM OF CREAM TO LOWER VAGINA AND A PEA SIZED AMOUNT TO THE OPENING OF THE VAGINA 3 TIMES WEEKLY meloxicam (MOBIC) 15 mg tablet Take 1 [...] 0.05 % ointment Apply half of one ufscqr-xgh-nxyq to cover the affected area two days a week. Ferrous Gluconate 225 mg (27 mg iron) tab Take 1 tablet by mouth once daily. MAGNESIUM ORAL Take by mouth. multivitamin with minerals (HAIR,SKIN AND NAILS ORAL) Take by mouth. COMPOUNDED PRESCRIPTION Exercise 30 minutes daily 5 [...] No Drug use: No PHYSICAL EXAM BP 128/78 Pulse 112 Temp 36.2 C (97.1 F) (Temporal) Resp 18 SpO2 96% General Appearance: ill appearing but in no acute distress, alert Skin: Skin color, texture, turgor normal for age; Eyes: conjunctiva pink and moist, no icterus, sclera white, non-injected Nose/sinus: Nares normal. Septum midline. Mucosa normal. No drainage. Neck: Thyroid normal size and symmetric without palpable nodules, Neck supple enlarged lymphnode with tenderness noted to both bilateral bases of neck. Oropharynx: no tonsils - erythema to posterior pharynx Lungs: Lungs clear to auscultation. No wheezing, rhonchi, rales. Heart: RRR without murmur, gallop, or rubs. No ectopy Health maintenance reviewed with patient: BP Controlled (<130/80) Never done RSV Vaccine(1 - 1-dose 60+ series) Never done Advance Directive Discussion due on 10/20/2023 Behavioral Health Screening Never done Covid-19 Vaccine(2022- season) due on 01/09/2024 Mammogram Screening due on 04/14/2024 DTaP,Tdap,Td Vaccine(2 - Td or Tdap) due on 09/26/2024 Annual PCP Team Chronic Disease Visit due on 03/31/2025 Diabetes Screening due on 06/24/2026 Lipid Screening due on 06/24/2028 Colorectal Cancer Screening due on 02/22/2032 Bone Density Screening Completed Influenza Vaccine Completed Hepatitis C Screening Completed Shingrix Vaccine Completed Pneumococcal Vaccine: 65+ Completed DATA REVIEWED: No new labs ASSESSMENT/PLAN: 1. Other fatigue - ICD9: 780.79, ICD10: R53.83 (primary diagnosis) Probable result of current infection. Will treat sinusitis with PCN based in case any strep is present. With the enlarged lymph nodes needs evaluated for mono as well. Get US completed as ordered Follow up in 1-2 weeks. - MONOTEST, INFECTIOUS MONO - COMPLETE BLOOD COUNT AND DIFFERENTIAL - COMPREHENSIVE METABOLIC PANEL 2. Enlarged lymph node in neck - ICD9: 785.6, ICD10: R59.0 As above - MONOTEST, INFECTIOUS MONO - COMPLETE BLOOD COUNT AND DIFFERENTIAL - COMPREHENSIVE METABOLIC PANEL 3. Sore throat - ICD9: 462, ICD10: J02.9 See #1 - MONOTEST, INFECTIOUS MONO - COMPLETE BLOOD COUNT AND DIFFERENTIAL 4. Acute non-recurrent sinusitis, unspecified location - ICD9: 461.9, ICD10: J01.90 - Will begin treatment with as per antibiotic as written, see orders - Supportive care with plenty of fluids, rest, and analgesia prn. - Follow up in 3-5 days if symptoms persist or worsen. Prescription instructions reviewed with patient as applicable. Potential red flag symptoms discussed with the patient. Reviewed appropriate action plan to take if red flag symptoms occur. Patient agreeable to treatment plan. Josselin Stevens APRN.CNP documented in this encounterAdena [facility] System06-12-2024 Telephone encounter Note * Telephone Encounter - Billie Gonzalez RN - 03/31/2024 4:28 PM EDT Patient calls and notified of provider recommendations below. Patient upset because she knows thereis something wrong. Patient scheduled with Josselin tomorrow morning. Billie Gonzalez RN [facility] Miscellaneous Notes* Telephone Encounter - Billie Gonzalez RN - 03/31/2024 4:28 PM EDT Patient calls and notified of provider recommendations below. Patient upset because she knows thereis something wrong. Patient scheduled with Josselin tomorrow morning. Billie Gonzalez RN * Telephone Encounter - Sugey Salguero APRN.CNP - 03/31/2024 4:21 PM EDT Her pain was her left neck so I don't think the right shoulder pain is connected to this. I wouldn't get an US any sooner as we normally wait a month before doing an ultrasound of enlarged lymph node. She can scheduledwith her PCP care team for the right shoulder pain if persists. Sugey Salguero APRN.HERACLIO * Telephone Encounter - Gogo Whitlock LPN - 03/31/2024 3:49 PM EDT Patient states that she laid down when she got home after her appointment. States when she got up she is feeling worse and now has pain down her right side behind her shoulder. States that she has anUS on 04/21 but is not sure if she should be moving faster for something. Asking what she should be watching out for since she does have the swollen lymph node. Please advise. documented in this encounterAdena [facility] System06-12-2024 Telephone encounter Note * Telephone Encounter - Sugey Salguero APRN.CNP - 03/31/2024 4:21 PM EDT Her pain was her left neck so I don't think the right shoulder pain is connected to this. I wouldn't get an US any sooner as we normally wait a month before doing an ultrasound of enlarged lymph node. She can scheduledwith her PCP care team for the right shoulder pain if persists. Sugey Salguero APRN.HERACLIO [facility]06-[facility] Telephone encounter Note* Telephone Encounter - Gogo Whitlock LPN - 03/31/2024 3:49 PM EDT Patient states that she laid down when she got home after her appointment. States when she got up she is feeling worse and now has pain down her right side behind her shoulder. States that she has anUS on 04/21 but is not sure if she should be moving faster for something. Asking what she should be watching out for since she does have the swollen lymph node. Please advise. [facility] Instructions* Patient Instructions* Sugey Salguero APRN.CNP - 03/31/2024 9:35 AM EDT Obtain ultrasound in 2 weeks if lymph node persists to be enlarged documented in this encounterAdena Health System06-12-2024 History of Present illness Narrative* Sugey Salguero APRN.CNP - 03/31/2024 9:13 AM EDT 03/31/2024 Patient presents with: Sore Throat: With fatigue x 2 weeks & swollen lymph node LEFT side of neck SUBJECTIVE: This is a 73 year old that is here today for Above Complaints. Has been in [place] for [facility] and [facility]. Sore throat for a couple of weeks. Feeling fatigued.Last night felt lump to left neck and it is painful. Temp 99.6. Also reports some phlegm in throat she has been trying got cough up. Has not COVID-19 tested. Not taking any OTC meds. Denies chills, muscle aches, nasal congestion, ear pain, SOB,dyspnea, wheezing, chest pain, nausea, vomiting or diarrhea PAST MEDICAL HISTORY Diagnosis Date Acute gastritis without mention of hemorrhage Allergic rhinitis, cause unspecified BMI 40.0-44.9, adult ([facility]) 08/02/2013 Cataract Corneal abrasion 20 y ago Depressive disorder, not elsewhere classified Diverticulosis of colon (without mention of hemorrhage) Elevated BP 08/04/15 Esophageal reflux Iron deficiency anemia, unspecified Ocular migraine Osteopenia PMH - PAST MEDICAL HISTORY OF sch[place]ki ring ALLERGIES Elliot Inhibitors, Cats, Norvasc [Amlodipine Besylate], Poison Kendy, Dust Mites, and Tree AndShrub Pollen MEDICATIONS Current Outpatient Medications Medication Sig zolpidem (AMBIEN) 10 mg Use half to one tablet as needed. omeprazole (PRILOSEC) 40 mg capsule Take 1 capsule by mouth once daily. estradiol (ESTRACE) 0.01 % (0.1 mg/gram) vaginal cream APPLY 1 GRAM OF CREAM TO LOWER VAGINA AND A PEA SIZED AMOUNT TO THE OPENING OF THE VAGINA 3 TIMES WEEKLY meloxicam (MOBIC) 15 mg tablet Take 1 [...] 0.05 % ointment Apply half of one [id number] to cover the affected area two days a week. MAGNESIUM ORAL Take by mouth. multivitamin with minerals (HAIR,SKIN AND NAILS ORAL) Take by mouth. COMPOUNDED PRESCRIPTION Exercise 30 minutes daily 5 days weekly multivitamin tablet Take 1 tablet by mouth twice daily. loratadine(CLARITIN 10 MG TAB) Take one(1) tablet daily as needed for allergy symptoms. Ferrous Gluconate 225 mg (27 mg iron) tab Take 1 tablet by mouth once daily. No current facility-administered medications for this visit. Medications and allergies reviewed by this provider. SOCIAL HISTORY Social History Tobacco Use Smoking status: Never Smokeless tobacco: Never Vaping Use Vaping Use: Never used Substance Use Topics Alcohol use: No Drug use: No REVIEW OF SYSTEMS All other reviewed and negative other than HPI. OBJECTIVE: BP 138/82 Pulse 114 Temp 37.6 C (99.7 F) (Right Tympanic) Resp 20 Wt 108.9 kg (240 lb) SpO2 96% BMI 42.51 kg/m . Vital signs reviewed by this provider. APPEARANCE Well appearing, alert, in no acute distress, well-hydrated, well nourished. EYES conjunctiva and sclera normal. EARS External ears normal, canals clear THROAT normal, no erythema NECK Supple. Left neck deep cervical with enlarged mobile soft circular marble sized lymph node, area is TTP HEART RRR with normal S1 and S2, no murmurs, no gallops, no JVD appreciated LUNG clear to auscultation. No wheezes, rhonchi or rales SKIN Skin color, texture, turgor normal, no suspicious rashes or lesions BP Controlled (<130/80) Never done RSV Vaccine(1 - 1-dose 60+ series) Never done Advance Directive Discussion due on 10/20/2023 Behavioral Health Screening Never done Covid-19 Vaccine( season) due on 01/09/2024 Mammogram Screening due on 04/14/2024 DTaP,Tdap,Td Vaccine(2 - Td or Tdap) due on 09/26/2024 Annual PCP Team Chronic Disease Visit due on 03/31/2025 Diabetes Screening due on 06/24/2026 Lipid Screening due on 06/24/2028 Colorectal Cancer Screening due on 02/22/2032 Bone Density Screening Completed Influenza Vaccine Completed Hepatitis C Screening Completed Shingrix Vaccine Completed Pneumococcal Vaccine: 65+ Completed ASSESSMENT/PLAN: 1. Sore throat - ICD9: 462, ICD10: J02.9 (primary diagnosis) - suspect viral - Discussed supportive care treatment with fluids, rest and analgesia. - The patient may also use warm salt water gargles, throat lozenges and/or OTC throat spray as needed. - COVID-19 testing declined - may use plain mucinex for phlegm - The patient should follow up in 3-5 days if symptoms persist or worsen - Call back if drooling, increased temperature, symptoms of dehydration and/or still sick in one week 2. Enlarged lymph node in neck - ICD9: 785.6, ICD10: R59.0 - likely reactive - no red flag symptoms or exam findings - red flag symptoms discussed, verbalizes understanding - patient will be traveling to [facility] and does not want to wait a month for US as recommended, haveplaced order she can have it done in two weeks if it persists, to ER with red flag symptoms - US HEAD/NECK SOFT TISSUE OTHER 3. Fatigue, unspecified type - ICD9: 780.79, ICD10: R53.83 - obtain labs as order for follow-up with PCP - possible related to viral illness - follow-up with PCP if persists Sugey Salguero APRN.CNP Prescription instructions reviewed with patient as applicable. Patient advised if symptoms do not improve or if symptoms worsen sooner, to contact their primary care physician. Potential red flag symptoms discussed with the patient. Reviewed appropriate action plan to take if red flag symptoms occur. Patient agreeable to treatment plan. Medical Decision Making: Problems: Moderate: New problem with uncertain prognosis Data: Unique test(s) ordered: 1 Risk: Low: Low risk from testing/treatment Medical Decision Making Level: 3 - Low documented in this encounterAdena Health System05-14-2024 History of Present illness Narrative* Guanakito Reyna PT - 03/02/2024 6:00 PM EDT Images from the original note were not included. Episode Visit Count: 9 Therapist That Will Accept/Oversee The Plan Of Care: Guanakito Reyna PT Start of Care Date: 01/07/24 Onset Date: 10/27/23 Plan of Care Certification Date: 02/04/24 Next Certification Due Date: 03/03/24 Patient Identified by Name and Date of : Yes REHABILITATION AND SPORTS THERAPY PHYSICAL THERAPY DISCONTINUANCE OF CARE PLAN OF CARE UPDATE: Assessment: Jessica Worrell is discontinued from Physical Therapy services due to goal achievement and maximal benefit. and Patient/Clinician mutual decision to discontinue current plan of care.. Patient was seen for 9 visits from Start of Care Date: 01/07/24 to 03/02/2024 and treatment included: Therapeutic exercise, Self-halfway management, Patient/Family/Caregiver Education, and Body mechanics training. Updated: 02/04/24 and 03/02/24 Goals for Episode of Care: created on 01/07/24 through 02/18/24 [place] in home exercise program. - MET Patient will decrease pain to 0/10 at rest and with functional activities to allow patient to improve all reaching with R UE. - MET Patient will increase active ROM of R shoulder to WFL and symmetrical to allow pt to to improve performance of ADLs and especially dressing and grooming. - Partially MET Patient will demonstrate increase in R shoulder strength to 5/5 during manual muscle testing in order to improve function for prior functional Tasks. - Partially MET Perform reaching, dressing, grooming and fastening seat belt without pain. - MET Patient Goals: regain full function of R UE. - Partially MET SUBJECTIVE: Pt reports that overall her R shoulder is lots better than at evaluation. She reportscompliance with HEP 1x day and occassionally 2x day. She reports completing isometrics and that these cause and appropriate level of fatigue. She reports that she is reaching better with R UE functionally. She reports that dressing is much improved but at times fastening bra can be challenging. Shereports that grooming is much improved. She denies any limitations with fastening seat belt. Pain: Pain Pain Level: 0 Pain Location: Shoulder - Right Description: (not pain, maybe achey discomfort) Frequency: Intermittent Post Treatment Pain Post Treatment Pain Level: No Change Post Treatment Pain Location: Shoulder - Right PROMIS Scales 02/04/2024 01/05/2024 11/01/2023 Higher is Better Phys Func - Score 43 (mild dysfunction) 41 (mild dysfunction) 43 (mild dysfunction) Phys Func - Percentile 24 18 24 Self-Eff Symptom - Score 46 (Average) 46 (Average) Self-Eff Symptom - Percentile 34 34 T-scores: mean of general population = 50. 5 points is clinically meaningfully difference Percentiles provide an indication of how the patient's score ranks in relation to the general population. Higher percentile rankings indicate better function/quality of life. 50th percentile is the average of the general population and indicates half of respondents had a worse score. OBJECTIVE MEASURES WITH LEVEL OF FUNCTION: UE AROM R UE AROM: seated R Shoulder Extension: 51 Degrees R Shoulder Flex: 148 Degrees R Shoulder ABduction: 130 Degrees R Shoulder Internal Rotation (Functional): 22cm less than L reaching behind back R Shoulder External Rotation (Functional): 2cm less than L reaching behind head UE and Cervical Strength R Shoulder Extension: 5/5 R Shoulder Flexion: 4+/5 R Shoulder Abduction (C5): 4/5 R Shoulder Internal Rotation: 4+/5 R Shoulder External Rotation: 4+/5 TREATMENT: Therapeutic Exercise: 1: SciFit StepOne seat #13 x5 minutes 2: seated AAROM with rope and jolene for R shoulder flexion 2x10 3: seated AAROM with rope and jolene for R shoulder abduction 2x10 4: standing rope and jolene AAROM for R shoulder IR behind back 2x10 5: R shoulder isometrics reviewed and continuation encouraged 6: *R shoulder t-band strengthening with pink t-band for flexion, extension, abduction, IR and ER 2x10 each 7: HEP was thoroughly reviewed and continuation encouraged to tolerance. 8: Re-assessment results were reviewed with patient and used as rationale for d/c recommendation. Skilled Intervention: Patient was educated in proper [...] as noted. Billing Therapeutic Exercise Treatment Minutes: 42 Skilled Treatment Time Minutes (timed and untimed codes): 42 Total Session Time (minutes): 42 Session Start Time : 1408 Session Stop Time : 1450 Guanakito Reyna PT * Guanakito Reyna PT - 03/02/2024 2:39 PM EDT Program_ID:[id number] Access Code: [email or web address] URL: [email or web address] Date: 03-02-2024 Prepared By: Guanakito Reyna Program Notes Exercises - Circular Shoulder Pendulum with Table Support - 2-3 x daily - 7 x weekly - 2 sets - 10 reps - Standing Shoulder Flexion AAROM with Dowel - 2-3 x daily - 7 x weekly - 2 sets - 10 reps - Standing Shoulder Abduction AAROM with Dowel - 2-3 x daily - 7 x weekly - 2 sets - 10 reps - Seated Shoulder Flexion AAROM with Jolene Behind - 1 x daily - 7 x weekly - 2 sets - 10 reps - Seated Shoulder Scaption AAROM with Jolene at Side - 1 x daily - 7 x weekly - 2 sets - 10 reps - Seated Shoulder External Rotation AAROM with Cane and Hand in Neutral - 1 x daily - 7 x weekly - 2 sets - 10 reps - Standing Bilateral Shoulder Internal Rotation AAROM with Dowel - 1 x daily - 7 x weekly - 2 sets - 10 reps - Shoulder Alphabet with Ball at Wall - 1 x daily - 7 x weekly - 2 sets - 10 reps - Isometric Shoulder Flexion at Wall - 1 x daily - 7 x weekly - 2 sets - 10 reps - Isometric Shoulder Extension at Wall - 1 x daily - 7 x weekly - 2 sets - 10 reps - Isometric Shoulder Abduction at Wall - 1 x daily - 7 x weekly - 2 sets - 10 reps - Standing Isometric Shoulder External Rotation with Doorway - 1 x daily - 7 x weekly - 2 sets - 10 reps - Standing Isometric Shoulder Internal Rotation with Towel Roll at Doorway - 1 x daily - 7 x weekly - 2 sets - 10 reps - Shoulder Extension with Resistance - 1 x daily - 7 x weekly - 2 sets - 10 reps - Standing Single Arm Shoulder Flexion with Posterior Anchored Resistance - 1 x daily - 7 x weekly - 2 sets - 10 reps - Standing Single Arm Shoulder Abduction with Anchored Resistance - 1 x daily - 7 x weekly - 2 sets - 10 reps - Shoulder External Rotation with Anchored Resistance - 1 x daily - 7 x weekly - 2 sets - 10 reps - Standing Shoulder Internal Rotation with Anchored Resistance - 1 x daily - 7 x weekly - 2 sets - 10 reps documented in this encounterAdena Health System05-10-2024 History of Present illness Narrative* Josephine Gonzalez PTA - 02/27/2024 3:22 PM EDT Program_ID:[id number] Access Code: [email or web address] URL: [email or web address] Date: 02-27-2024 Prepared By: Guanakito Reyna Program Notes Exercises - Circular Shoulder Pendulum with Table Support - 2-3 x daily - 7 x weekly - 2 sets - 10 reps - Standing Shoulder Flexion AAROM with Dowel - 2-3 x daily - 7 x weekly - 2 sets - 10 reps - Standing Shoulder Abduction AAROM with Dowel - 2-3 x daily - 7 x weekly - 2 sets - 10 reps - Seated Shoulder Flexion AAROM with Jolene Behind - 1 x daily - 7 x weekly - 2 sets - 10 reps - Seated Shoulder Scaption AAROM with Jolene at Side - 1 x daily - 7 x weekly - 2 sets - 10 reps - Seated Shoulder External Rotation AAROM with Cane and Hand in Neutral - 1 x daily - 7 x weekly - 2 sets - 10 reps - Standing Bilateral Shoulder Internal Rotation AAROM with Dowel - 1 x daily - 7 x weekly - 2 sets - 10 reps - Shoulder Alphabet with Ball at Wall - 1 x daily - 7 x weekly - 2 sets - 10 reps - Isometric Shoulder Flexion at Wall - 1 x daily - 7 x weekly - 2 sets - 10 reps - Isometric Shoulder Extension at Wall - 1 x daily - 7 x weekly - 2 sets - 10 reps - Isometric Shoulder Abduction at Wall - 1 x daily - 7 x weekly - 2 sets - 10 reps - Standing Isometric Shoulder External Rotation with Doorway - 1 x daily - 7 x weekly - 2 sets - 10 reps - Standing Isometric Shoulder Internal Rotation with Towel Roll at Doorway - 1 x daily - 7 x weekly - 2 sets - 10 reps * Guanakito Reyna, PT - 02/27/2024 2:52 PM EDT Episode Visit Count: 8 Therapist That Will Accept/Oversee The Plan Of Care: Guanakito Reyna PT Start of Care Date: 01/07/24 Onset Date: 10/27/23 Plan of Care Certification Date: 02/04/24 Next Certification Due Date: 03/03/24 Patient Identified by Name and Date of : Yes REHABILITATION AND SPORTS THERAPY PHYSICAL THERAPY TREATMENT NOTE ASSESSMENT: Jessica Worrell tolerated the session with fatigue and expected muscle soreness. She demonstrated improvements in R shoulder flexion AROM. The patient will continue to benefit from ongoing skilled physical therapy to progress toward set goals. PLAN FOR NEXT VISIT: Consider giving AROM for HEP. Asses response to isometrics SUBJECTIVE: Pt questioning if she can start some strengthening so that she can do other things at [facility]. Pain: Pain Pain Level: 0 Pain Location: Shoulder - Right Post Treatment Pain: No change Post Treatment Pain Location: Shoulder - Right OBJECTIVE MEASURES WITH LEVEL OF FUNCTION: UE AROM R Shoulder Flex: 134 Degrees TREATMENT: Therapeutic Exercise: 1: *Standing shoulder isometrics 5 second holds x 5: flex, extension, abduction, IR, and ER 2: R UE alphabet tracing with 2# weight A-Z x2 3: R UE holding 2# ball against wall at shoulder height 2x20 CW and 2x20 CCW 2# wrist weight 4: AROM shoulder flexion x 10 5: AROM shoulder scaption x 10 6: AROM shoulder abduction x10 Skilled Intervention: Patient was educated in proper [...] visual cuing. Billing Therapeutic Exercise Treatment Minutes: 38 Skilled Treatment Time Minutes (timed and untimed codes): 38 Total Session Time (minutes): 38 Session Start Time : 1451 Session Stop Time : 1529 MAAME Pritchard PT documented in this encounterAdena Health System05-10-2024 Telephone encounter Note * Telephone Encounter - Josselin Stevens APRN.CNP - 02/27/2024 9:11 AM EDT [facility] All [facility] have been APPROPRIATELY filled. No suspiciousactivity was identified. 02/27/2024 by Josselin Stevens APRN.CNP [facility]-10-[facility] Miscellaneous Notes* Telephone Encounter - Josselin Stevens APRN.CNP - 02/27/2024 9:11 AM EDT [facility] website checked and validated. All prescriptions have been APPROPRIATELY filled. No suspiciousactivity was identified. 02/27/2024 by Josselin Stevens APRN.CNP * Telephone Encounter - Kemal Darden, RN - 02/26/2024 4:16 PM EDT Pt returned call and given provider's message below with verbalized understanding. Patient reports she only uses the ambien as needed and the Rx lasts her a while. Reports Josselin ordered the last Rx (2021) and she does need a refill. DDM Simone. Next appt with Josselin- 04-08-24 Next appt with Jaicorey- 05-04-24 * Telephone Encounter - Sienna Hatch LPN - 02/23/2024 12:57 PM EDT left message to call office back and speak with triage nurse about med refill request. Sienna Hatch LPN * Telephone Encounter - Josselin Stevens APRN.HERACLIO - 02/18/2024 1:40 PM EDT This has not been filled in almost 2 years. Has she bee getting this through a different provider? If so she should contact them for refills. Thank you Josselin Stevens APRN.POINT OF CARE TECHNICIAN * Telephone Encounter - Sienna Hatch LPN - 02/18/2024 8:04 AM EDT Patient has been identified by name and date of : No Patient phones for refill(s): Requested Prescriptions Pending Prescriptions Disp Refills zolpidem (AMBIEN) 10 mg 30 tablet 0 Sig: Use half to one tablet as needed. Date of last office visit in primary care: 07/14/2017 Date of next office visit in primary care: 04/08/24 Please advise. Thank you. Sienna Hatch LPN. documented in this encounterAdena Health System05-09-2024 Telephone encounter Note * Telephone Encounter - Kemal Darden, RN - 02/26/2024 4:16 PM EDT Pt returned call and given provider's message below with verbalized understanding. Patient reports she only uses the ambien as needed and the Rx lasts her a while. Reports Josselin ordered the last Rx (2021) and she does need a refill. DDM Simone. Next appt with Josselin- 04-08-24 Next appt with Gancorey- 05-04-24 [facility] Telephone encounter Note* Telephone Encounter - Sienna Hatch LPN - 02/23/2024 12:57 PM EDT left message to call office back and speak with triage nurse about med refill request. Sienna Hatch LPN [facility]05-01-[facility] History of Present illness Narrative* Guanakito Reyna, PT - 02/18/2024 5:30 PM EDT Episode Visit Count: 7 Therapist That Will Accept/Oversee The Plan Of Care: Guanakito Reyna PT Start of Care Date: 01/07/24 Onset Date: 10/27/23 Plan of Care Certification Date: 02/04/24 Next Certification Due Date: 03/03/24 Patient Identified by Name and Date of : Yes REHABILITATION AND SPORTS THERAPY PHYSICAL THERAPY TREATMENT NOTE ASSESSMENT: Jessica Worrell tolerated the session with fatigue and no issues. She demonstrated improvements in function and exercise tolerance. The patient will continue to benefit from ongoing skilled physical therapy to progress toward set goals and for reassessment by supervising therapist. PLAN FOR NEXT VISIT: Continue with therex for R UE ROM, strength and function. Progress to tolerance. Re-assess for planof care update. SUBJECTIVE: Pt reports that overall, her R shoulder is better since last session 02/04/24. She reports concerns about her R shoulder being lower than L. She reports compliance with HEP 1x day and sometimes 2x day. Pain: Pain Pain Level: 0 Pain Location: Shoulder - Right Description: (Pt denies any pain to start today) Frequency: Intermittent Post Treatment Pain Post Treatment Pain Level: No Change Post Treatment Pain Location: Shoulder - Right Post Treatment Symptoms: Pt reported fatigue from a good workout but she denied any increase in pain. OBJECTIVE MEASURES WITH LEVEL OF FUNCTION: TREATMENT: Therapeutic Exercise: 1: [employer] StepOne seat #13 x5 minutes (Pt provided an update on her condition and plan of care reviewed) 2: R UE 5 on the wall 1-4 with 2# wrist weight 3x30 seconds 3: R UE bodyblade arm at side, blade horizontal up and down 3x30 seconds 4: R UE bodyblade elbow flexed 90 degrees blade vertical side to side 3x30 seconds 5: HEP reviewed and continuation encouraged to tolerance 6: R UE alphabet tracing with 2# weight A-Z x2 7: R UE holding 2# ball against wall at shoulder height 2x20 CW and 2x20 CCW 2# wrist weight 8: seated AAROM with rope and jolene for R shoulder flexion 2x10 9: seated AAROM with rope and jolene for R shoulder abduction 2x10 10: standing rope and jolene AAROM for R shoulder IR behind back 2x10 11: standing wand AAROM for R shoulder flexion, abduction, IR and ER 2x10 Skilled Intervention: Patient was educated in proper exercise technique and purpose for exercises. Reviewed and educated patient on additions/changes for home exercise program as above (*). Skilled judgment was used in selection of appropriate interventions. Correct performance of therapeutic exercises was facilitated with verbal, visual, and tactile cuing. Patient education as noted. Billing Therapeutic Exercise Treatment Minutes: 39 Skilled Treatment Time Minutes (timed and untimed codes): 39 Total Session Time (minutes): 39 Session Start Time : 1650 Session Stop Time : 1729 Guanakito Reyna PT [facility] Tele[facility] encounter Note * Telephone Encounter - Josselin Stevens APRN.POINT OF CARE TECHNICIAN - 02/18/2024 1:40 PM EDT This has not been filled in almost 2 years. Has she bee getting this through a different provider? If so she should contact them for refills. Thank you Josselin Stevens APRN.POINT OF CARE TECHNICIAN [facility]05-01-[facility] Telephone encounter Note* Telephone Encounter - Sienna Hatch LPN - 02/18/2024 8:04 AM EDT Patient has been identified by name and date of : No Patient phones for refill(s): Requested Prescriptions Pending Prescriptions Disp Refills zolpidem (AMBIEN) 10 mg 30 tablet 0 Sig: Use half to one tablet as needed. Date of last office visit in primary care: 07/14/2017 Date of next office visit in primary care: 04/08/24 Please advise. Thank you. Sienna Hatch LPN. [facility]04-17-2024 Miscellaneous Notes* Telephone Encounter - Christine Morillo LPN - 02/04/2024 4:03 PM EDT Patient has been identified by name and date of : Yes, Patient phones for refill(s): Requested Prescriptions Pending Prescriptions Disp Refills omeprazole (PRILOSEC) 40 mg capsule 90 capsule 3 Sig: Take 1 capsule by mouth once daily. Date of last office visit in primary care: 10/28/2023 Date of next office visit in primary care: 04/08/2024 Please advise. Thank you. Christine Morillo LPN. documented in this encounterAdena [facility] System04-17-2024 History of Present illness Narrative* Guanakito Reyna PT - 02/04/2024 1:01 PM EDT Images from the original note were not included. Episode Visit Count: 6 Therapist That Will Accept/Oversee The Plan Of Care: Guanakito Reyna PT Start of Care Date: 01/07/24 Onset Date: 10/27/23 Plan of Care Certification Date: 02/04/24 Next Certification Due Date: 03/03/24 Patient Identified by Name and Date of : Yes REHABILITATION AND SPORTS THERAPY PHYSICAL THERAPY PROGRESS REPORT PLAN OF CARE UPDATE: Assessment: Jessica Worrell demonstrates moderate improvement in reaching behind back, reaching overhead, dressing, and grooming. She has progressed toward goals. Patient continues to present with impairments in ADL's, independence in exercise, overall function, range of motion, strength, and symptom management that interfere with reaching overhead, reaching behind back, grooming, dressing . Current prognosis is Excellent due to: current objective clinical presentation, good overall health status, acuteness of condition, positive past response to therapy, within-session changes, good support system/ coping skills. She will benefit from continued skilled therapy services to meet the updated goals for this plan of care as noted below. Updated: 02/04/24 Goals for Episode of Care: created on 01/07/24 through 02/18/24 [place] in home exercise program. - MET, will continue and progress to tolerance Patient will decrease pain to 0/10 at rest and with functional activities to allow patient to improve all reaching with R UE. - Partially MET, will continue Patient will increase active ROM of R shoulder to WFL and symmetrical to allow pt to to improve performance of ADLs and especially dressing and Grooming. - Partially MET, will continue Patient will demonstrate increase in R shoulder strength to 5/5 during manual muscle testing in order to improve function for prior functional Tasks. - Partially MET, will continue Perform reaching, dressing, grooming and fastening seat belt without pain. - Partially MET, will continue Patient Goals: regain full function of R UE. - Partially MET, will continue Patient Goals: regain full function of R UE. Planned Interventions, Frequency, and Duration: 2x/week, 4 weeks Total Number of Visits Planned: 8 Patient to be seen for Therapeutic exercise (90017), Neuromuscular re-education (40001), Manual therapy (46295), Therapeutic activities (60526), Self-halfway management (07883), Patient/Family/Caregiver Education, Body Mechanics Training PLAN FOR NEXT VISIT: Continue with therex for R UE ROM, strength and function. Progress to tolerance. SUBJECTIVE: Pt reports that overall her R shoulder is much better. She reports that her ROM is better and strength is improving. She reports compliance with HEP 1-2x day. She reports that she is reaching better with R UE and currently she is pain-free. She reports that dressing is improved but still limited for reaching behind back. She reports continued difficulty with grooming tasks but that grooming is better. She reports that applying her seat belt is normalized and not limited. Patient Goals: regain full function of R UE. Functional Limitations: reaching overhead, reaching behind back, grooming, dressing Prior Level of Function: Independent without limitations Intake Information: Prescription present Pain: Pain Pain Level: 0 Pain Location: Shoulder - Right Description: (No pain to start today) Frequency: Intermittent Post Treatment Pain Post Treatment Pain Level: No Change Post Treatment Pain Location: Shoulder - Right Post Treatment Symptoms: Pt reported fatigue but did not report any increase in pain PROMIS Scales 02/04/2024 01/05/2024 11/01/2023 Higher is Better Phys Func - Score 43 (mild dysfunction) 41 (mild dysfunction) 43 (mild dysfunction) Phys Func - Percentile 24 18 24 Self-Eff Symptom - Score 46 (Average) 46 (Average) Self-Eff Symptom - Percentile 34 34 T-scores: mean of general population = 50. 5 points is clinically meaningfully difference Percentiles provide an indication of how the patient's score ranks in relation to the general population. Higher percentile rankings indicate better function/quality of life. 50th percentile is the average of the general population and indicates half of respondents had a worse score. OBJECTIVE MEASURES WITH LEVEL OF FUNCTION: UE AROM R UE AROM: seated R Shoulder Extension: 57 Degrees R Shoulder Flex: 125 Degrees R Shoulder ABduction: 118 Degrees R Shoulder Internal Rotation (Functional): 20cm less than L reaching behind back R Shoulder External Rotation (Functional): 2cm less than L reaching behind head UE and Cervical Strength Strength Tested: Shoulder All R Shoulder Extension: 4+/5 R Shoulder Flexion: 4/5 R Shoulder Abduction (C5): 4-/5 R Shoulder Internal Rotation: 4+/5 R Shoulder External Rotation: 3+/5 TREATMENT: Therapeutic Exercise: 1: The [employer] StepOne seat #13 x6 minutes (Pt provided an update on her condition and subjective portion of goals assessed) 2: standing wand AAROM for R shoulder flexion, abduction, IR(wand behind back) and ER 2x10 each 3: R UE bodyblade arm at side, blade horizontal up and down 3x30 seconds 4: R UE bodyblade elbow flexed 90 degrees blade vertical side to side 3x30 seconds 5: Re-assessment completed and results shared with patient. This information was used as rationale for plan of care recommendations. 6: R UE alphabet tracing with 1.5# weight A-Z x2 7: R UE holding 2# ball against wall at shoulder height 2x20 CW and 2x20 CCW 1.5# wrist weight 8: seated AAROM with rope and jolene for R shoulder flexion 2x10 9: seated AAROM with rope and jolene for R shoulder abduction 2x10 10: standing rope and jolene AAROM for R shoulder IR behind back 2x10 Skilled Intervention: Patient was educated in proper exercise technique and purpose for exercises. Skilled judgment was used in selection of appropriate interventions. Correct performance of therapeutic exercises was facilitated with verbal, visual, and tactile cuing. Patient education as noted. Billing Therapeutic Exercise Treatment Minutes: 47 Skilled Treatment Time Minutes (timed and untimed codes): 47 Total Session Time (minutes): 47 Session Start Time : 1205 Session Stop Time : 1252 Guanakito Reyna PT documented in this encounterAden[facility]04-09-2024 History of Present illness Narrative* Guanakito Reyna PT - 01/27/2024 4:27 PM EDT Episode Visit Count: 5 Therapist That Will Accept/Oversee The Plan Of Care: Guanakito Reyna PT Start of Care Date: 01/07/24 Onset Date: 10/27/23 Plan of Care Certification Date: 01/07/24 Next Certification Due Date: 02/18/24 Patient Identified by Name and Date of : Yes REHABILITATION AND SPORTS THERAPY PHYSICAL THERAPY TREATMENT NOTE ASSESSMENT: Jessica Worrell tolerated the session with fatigue, expected muscle soreness, and no issues. She demonstrated improvements in ROM and function of R shoulder. The patient will continue to benefit from ongoing skilled physical therapy to progress toward set goals and for reassessment by supervising therapist. PLAN FOR NEXT VISIT: Continue with therex for R UE ROM, strength and function. Progress to tolerance. Re-assess for planof care update. SUBJECTIVE: Pt reports exercise related soreness following last session, but no increase in pain. She feels that overall her R UE is improving. She reports that her R shoulder ROM is improved and function is also improving. She reports compliance with HEP 2x day. She reports that she even had to quickly reach for something with R UE and this did not cause pain. Pain: Pain Pain Level: 0 Pain Location: Shoulder - Right Frequency: Intermittent Post Treatment Pain Post Treatment Pain Level: No Change Post Treatment Pain Location: Shoulder - Right Post Treatment Symptoms: After therex session today, pt reported soreness from exercise but denied any increase in pain. OBJECTIVE MEASURES WITH LEVEL OF FUNCTION: TREATMENT: Therapeutic Exercise: 1: The [employer] StepOne seat #13 x6 minutes (Pt provided an update on her condition and plan of care reviewed) 2: standing wand AAROM for R shoulder flexion, abduction, IR(wand behind back) and ER 2x10 each 3: R UE bodyblade arm at side, blade horizontal up and down 3x30 seconds 4: R UE bodyblade elbow flexed 90 degrees blade vertical side to side 3x30 seconds 5: R UE 5 on the wall without weight 1-4 3x30 seconds 6: R UE alphabet tracing without weight A-Z x2 7: R UE holding 2# ball against wall at shoulder height 2x20 CW and 2x20 CCW 8: seated AAROM with rope and jolene for R shoulder flexion 2x10 9: seated AAROM with rope and jolene for R shoulder abduction 2x10 10: standing rope and jolene AAROM for R shoulder IR behind back 2x10 Skilled Intervention: Patient was educated in [...] Time (minutes): 41 Session Start Time : 1455 Session Stop Time : 1536 Guanakito Reyna PT documented in this encounterAdena [facility]04-03-2024 History of Present illness Narrative* Josephine Gonzalez PTA - 01/21/2024 4:46 PM EDT Program_ID:[id number] Access Code: [email or web address] URL: [email or web address] Date: 01-21-2024 Prepared By: Guanakito Reyna Program Notes Exercises - Circular Shoulder Pendulum with Table Support - 2-3 x daily - 7 x weekly - 2 sets - 10 reps - Standing Shoulder Flexion AAROM with Dowel - 2-3 x daily - 7 x weekly - 2 sets - 10 reps - Standing Shoulder Abduction AAROM with Dowel - 2-3 x daily - 7 x weekly - 2 sets - 10 reps - Seated Shoulder Flexion AAROM with Jolene Behind - 1 x daily - 7 x weekly - 2 sets - 10 reps - Seated Shoulder Scaption AAROM with Jloene at Side - 1 x daily - 7 x weekly - 2 sets - 10 reps - Seated Shoulder External Rotation AAROM with Cane and Hand in Neutral - 1 x daily - 7 x weekly - 2 sets - 10 reps - Standing Bilateral Shoulder Internal Rotation AAROM with Dowel - 1 x daily - 7 x weekly - 2 sets - 10 reps - Shoulder Alphabet with Ball at Wall - 1 x daily - 7 x weekly - 2 sets - 10 reps * Lavonne Mcpherson PT - 01/21/2024 4:36 PM EDT Episode Visit Count: 4 Therapist That Will Accept/Oversee The Plan Of Care: Guanakito Reyna PT Start of Care Date: 01/07/24 Onset Date: 10/27/23 Plan of Care Certification Date: 01/07/24 Next Certification Due Date: 02/18/24 Patient Identified by Name and Date of : Yes REHABILITATION AND SPORTS THERAPY PHYSICAL THERAPY TREATMENT NOTE ASSESSMENT: Jessica Worrell tolerated the session with fatigue and expected muscle soreness. She demonstrated improvements in R shoulder flexion ROM. The patient will continue to benefit from ongoing skilled physical therapy to progress toward set goals. PLAN FOR NEXT VISIT: Consider IR with jolene for HEP if pt feels comfortable with technique to complete at home. SUBJECTIVE: Pt reports that her shoulder is sore after she works it, but other than that feeling okay today. Pain: Pain Pain Level: 0 Pain Location: Shoulder - Right Frequency: Intermittent Post Treatment Pain Post Treatment Pain Location: Shoulder - Right OBJECTIVE MEASURES WITH LEVEL OF FUNCTION: UE AROM R Shoulder Flex: 112 Degrees (standing) TREATMENT: Therapeutic Exercise: 1: seated AAROM with rope and jolene for R shoulder flexion 2x10 2: seated AAROM with rope and jolene for R shoulder abduction 2x10 3: standing rope and jolene AAROM for R shoulder IR behind back 2x10 4: *R UE alphabet tracing without weight A-Z x1 5: R UE 5 on the wall without weight 1-3 3x30 seconds 6: wand AAROM for R shoulder flexion 2x10 7: wand AAROM for R shoulder abduction 2x10 8: wand AAROM for R shoulder ER 2x10 Skilled Intervention: Patient was educated in [...] visual cuing. Billing Therapeutic Exercise Treatment Minutes: 42 Skilled Treatment Time Minutes (timed and untimed codes): 42 Total Session Time (minutes): 42 Session Start Time : 1630 Session Stop Time : 1712 MAAME Pritchard PT documented in this encounterAdena [facility] System03-22-2024 History of Present illness Narrative* Josephine Gonzalez PTA - 01/09/2024 2:40 PM EDT Program_ID:[id number] Access Code: [email or web address] URL: [email or web address] Date: 01-09-2024 Prepared By: Guanakito Reyna Program Notes Exercises - Circular Shoulder Pendulum with Table Support - 2-3 x daily - 7 x weekly - 2 sets - 10 reps - Standing Shoulder Flexion AAROM with Dowel - 2-3 x daily - 7 x weekly - 2 sets - 10 reps - Standing Shoulder Abduction AAROM with Dowel - 2-3 x daily - 7 x weekly - 2 sets - 10 reps - Seated Shoulder Flexion AAROM with Jolene Behind - 1 x daily - 7 x weekly - 2 sets - 10 reps - Seated Shoulder Scaption AAROM with Jolene at Side - 1 x daily - 7 x weekly - 2 sets - 10 reps - Seated Shoulder External Rotation AAROM with Cane and Hand in Neutral - 1 x daily - 7 x weekly - 2 sets - 10 reps - Standing Bilateral Shoulder Internal Rotation AAROM with Dowel - 1 x daily - 7 x weekly - 2 sets - 10 reps * Guanakito Reyna, PT - 01/09/2024 2:13 PM EDT Episode Visit Count: 2 Therapist That Will Accept/Oversee The Plan Of Care: Guanakito Reyna PT Start of Care Date: 01/07/24 Onset Date: 10/27/23 Plan of Care Certification Date: 01/07/24 Next Certification Due Date: 02/18/24 Patient Identified by Name and Date of : Yes REHABILITATION AND SPORTS THERAPY PHYSICAL THERAPY TREATMENT NOTE ASSESSMENT: Jessica Worrell tolerated the session with fatigue and expected muscle soreness. She demonstrated improvements in tolerance to exercise without increase in R shoulder pain. The patient will continue to benefit from ongoing skilled physical therapy to progress toward set goals. PLAN FOR NEXT VISIT: SUBJECTIVE: Pt reports that her shoulder is sore because she has a been using it. Pain: Pain Pain Location: Shoulder - Right Description: Sore Post Treatment Pain Post Treatment Pain Level: No Change Post Treatment Pain Location: Shoulder - Right OBJECTIVE MEASURES WITH LEVEL OF FUNCTION: Popping along R scapular spine with pulleys for flexion TREATMENT: Therapeutic Exercise: 1: *Seated pulleys for flexion and scaption 2 x10 2: Standing AAROM shoulder flexion 2x10 3: Standing AAROM abduction 2x10 4: *Seated shoulder ER AAROM with wand 2x10 5: *Standing AAROM IR behind the back with wand 2x10 Skilled Intervention: Patient was educated in proper exercise technique and purpose for exercises. Skilled judgment was used in selection of appropriate interventions. Correct performance of therapeutic exercises was facilitated with verbal and visual cuing. Billing Therapeutic Exercise Treatment Minutes: 35 Skilled Treatment Time Minutes (timed and untimed codes): 35 Total Session Time (minutes): 35 Session Start Time : 1410 Session Stop Time : 1445 Session time decreased due to patient late arrival. MAAME Pritchard PT documented in this encounterAdena [facility] System03-20-2024 History of Present illness Narrative* Guanakito Reyna PT - 01/07/2024 3:53 PM EDT Images from the original note were not included. Episode Visit Count: 1 Therapist That Will Accept/Oversee The Plan Of Care: Guanakito Reyna PT Start of Care Date: 01/07/24 Onset Date: 10/27/23 Plan of Care Certification Date: 01/07/24 Next Certification Due Date: 02/18/24 Patient Identified by Name and Date of : Yes REHABILITATION AND SPORTS THERAPY PHYSICAL THERAPY EVALUATION PLAN OF CARE: Assessment: Jessica Worrell presents with diagnosis of R humerus fracture that interferes with reaching overhead, reaching behind back, grooming, dressing (fasten seat belt) . She presents with impairments in ADL's, independence in exercise, overall function, range of motion, strength, symptom management, and tissue tenderness. PROMIS (Patient-Reported Outcomes Measurement Information System) scores were reviewed and identified as a rehabilitation concern. Prognosis for therapy is Excellent due to: current objective clinical presentation, good overall health status, acuteness of condition, positive past response to therapy, within-session changes, good support system/ coping skills. She will benefit from skilled therapy services to meet the goals established for this plan of care as noted below. Goals for Episode of Care: created on 01/07/24 through 02/18/24 [place] in home exercise program. Patient will decrease pain to 0/10 at rest and with functional activities to allow patient to improve all reaching with R UE. Patient will increase active ROM of R shoulder to WFL and symmetrical to allow pt to to improve performance of ADLs and especially dressing and grooming. Patient will demonstrate increase in R shoulder strength to 5/5 during manual muscle testing in order to improve function for prior functional tasks. Perform reaching, dressing, grooming and fastening seat belt without pain. Patient Goals: regain full function of R UE. Planned Interventions, Frequency, and Duration: Current Frequency: 2x/week Duration: 6 weeks Total Number of Visits Planned: 12 Planned Treatment Interventions: Therapeutic exercise (98042), Neuromuscular re- education (88776), Manual therapy (06135), Therapeutic activities (49691), Self- halfway management (93866), Patient/Family/Caregiver Education, Body Mechanics Training PLAN FOR NEXT VISIT: Review, correct and progress HEP to tolerance. Progress therex to tolerance toaddress R shoulder pain, AAROM, AROM and strength to facilitate a return to unlimited prior functional level with R UE. Patient demonstrates good understanding of plan of care and treatment. The above goals and plan of care were discussed and agreed upon by patient/family. SUBJECTIVE: Pt reports falling in October and landed on R shoulder. She sustained a fracture of her R humerus. She wore a sling for 7 weeks and has slowly increased her activity level with R UE. She has been instructed on shoulder pendulums and elbow, wrist and hand AROM. Patient Goals: regain full function of R UE. Functional Limitations: reaching overhead, reaching behind back, grooming, dressing (fasten seat belt) Prior Level of Function: Independent without limitations Relevant History Right or Left Handed: Right Employment: Retired Home Environment Patient Lives With: Spouse Assistance Available: PRN Home Type: Ranch Entry To Home: Stairs, With Rail Number Of Stairs Into Home: 2 Intake Information: Prescription present Previous Treatment: Exercises per physician (sling) Falls Interview: No positive findings with falls interview, Comments Falls Comments: Pt tripped carrying rope and landed on R shoulder but not because of balance deficit. Pain: Pain Pain Level: 1 Pain Location: Shoulder - Right Description: (I can feel my R shoulder but not my L) Frequency: Continuous (constant but varies in intensity based on activity level.) Post Treatment Pain Post Treatment Pain Level: Better Post Treatment Pain Location: Shoulder - Right Post Treatment Symptoms: After session, pt reported feeling better and that her shoulder was looser. PROMIS Scales 01/05/2024 11/01/2023 08/12/2023 Higher is Better Phys Func - Score 41 (mild dysfunction) 43 (mild dysfunction) 43 (mild dysfunction) Phys Func - Percentile 18 24 24 Self-Eff Symptom - Score 46 (Average) 44 (Average) Self-Eff Symptom - Percentile 34 27 T-scores: mean of general population = 50. 5 points is clinically meaningfully difference Percentiles provide an indication of how the patient's score ranks in relation to the general population. Higher percentile rankings indicate better function/quality of life. 50th percentile is the average of the general population and indicates half of respondents had a worse score. OBJECTIVE MEASURES WITH LEVEL OF FUNCTION: Shoulder Observations R Shoulder Palpation Tenderness: (general mild tenderness at posterior and lateral proximal humerusbut no point specific tenderness) UE AROM R UE AROM: seated L UE AROM: seated R Shoulder Extension: 57 Degrees R Shoulder Flex: 105 Degrees R Shoulder ABduction: 98 Degrees R Shoulder Internal Rotation (Functional): 29cm less than L reaching behind back (Pt reports that this was limited prior to her injury.) R Shoulder External Rotation (Functional): 5cm less than L reaching behind head L Shoulder Extension: 73 Degrees L Shoulder Flex: 142 Degrees L Shoulder ABduction: 158 Degrees UE and Cervical Strength R UE Strength: MMT deferred secondary to pt reported pain level currently. Limited functional AROM and prolonged period of immobilization during fracture healing likely lead to disuse atrophy and weakness. Special Tests - Shoulder Shoulder Special Tests: Empty Can, Garrido-Gurdeep, Speed's (Drop arm test negative) Empty Can: Right Positive (pain and weakness but no indicative of distinct tear) Garrido-Gurdeep: Right Positive Speed's: Right Negative Vitals BP: 136/94 Pulse: 99 Education: Education Learning Preferences: Explanation, Demonstration, Performance, Printed Materials Barriers: None Learning/educational needs: Plan of Care, Home exercise program, Body Mechanics, Posture Education Provided: Yes, see treatment interventions for education provided Education Provided To: Patient Education Mode/Type: Demonstration, Explanation/Discussion, Literature/Printed Materials, Performance Response to Education/Teach Back: States/Identifies, Return Demonstration, Requires Review/Additional Education TREATMENT: PT Treatment Interventions: Therapeutic Exercise Evaluation Therapeutic Exercise: 1: Pt was educated on the anatomy of her R shoulder, x-ray findings, likely etiology of symptoms and rationale for recommended PT plan of care. She was repeatedly reminded that she should use pain jermaine guide at all times and to stop any exercise that causes increased pain. 2: *R shoulder pendulums CW and CCW 2x10 in pain-free range 3: *R shoulder wand AAROM for flexion 2x10 4: *R shoulder wand AAROM for abduction 2x10 Skilled Intervention: Patient was educated in proper exercise technique and purpose for exercises. Reviewed and educated patient on additions/changes for home exercise program as above (*). Skilled judgment was used in selection of appropriate interventions. Provided written instruction for home exercise program to facilitate proper performance and compliance. Correct performance of therapeutic exercises was facilitated with verbal, visual, and tactile cuing. Billing * Evaluation Moderate Complexity: 1 Unit Therapeutic Exercise Treatment Minutes: 25 Skilled Treatment Time Minutes (timed and untimed codes): 55 Total Session Time (minutes): 55 Session Start Time : 1050 Session Stop Time : 1145 Guanakito Reyna PT * Guanakito Reyna PT - 01/07/2024 11:39 AM EDT Program_ID:[id number] Access Code: [email or web address] URL: [email or web address] Date: 01-07-2024 Prepared By: Guanakito Reyna Program Notes Exercises - Circular Shoulder Pendulum with Table Support - 2-3 x daily - 7 x weekly - 2 sets - 10 reps - Standing Shoulder Flexion AAROM with Dowel - 2-3 x daily - 7 x weekly - 2 sets - 10 reps - Standing Shoulder Abduction AAROM with Dowel - 2-3 x daily - 7 x weekly - 2 sets - 10 reps documented in this encounterAdena Health System03-06-2024 Miscellaneous Notes* Telephone Encounter - Kaylin Gallagher MA - 12/24/2023 10:32 AM EST Please assist patient with scheduling PT. Thank you. * Telephone Encounter - Jennifer Dickens PA-C - 12/23/2023 4:29 PM EST Order for PT is in epic, can we assist patient with scheduling? * Telephone Encounter - Nydia Negro RN - 12/23/2023 3:51 PM EST Patient called in stating that she believes that she needs PT and is asking that for an order. States she is not sure if what she is doing is right and due to her age believes she needs it. Nydia Negro RN documented in this encounterAdena Health System02-26-2024 History of Present illness Narrative* Torin Maza MD - 12/15/2023 2:30 PM EST Torin Maza MD Department of Orthopaedics Orthopaedics [address] [facility] [address] Dept: [phone] Dept December 15, 2023 CHIEF COMPLAINT: New and Fracture of the Right Shoulder HPI Patient is 6 weeks 6 days post right humeral neck fracture. States she fell at home on 10/27/2023. She is right hand dominant. Does not work outside the home, but does a lot of volunteering. She has not been driving. X-ray completed on 12/08/2023. ASSESSMENT: S42.291D Closed fracture of head of right humerus with routine healing (primary encounter diagnosis) PLAN: She's doing better. She has bad OA along with her fracture, so this is going to take time forultimate healing and then see how her shoulder ultimately is doing. She is going to begin working on her ROM more. I'll place an order for PT also. FOLLOW UP INSTRUCTIONS: 6-8 weeks. OBJECTIVE: Ms. Jessica Worrell is a pleasant 72 year old in no apparent distress. Gen:There were no vitals taken for this visit. nl development, obese, no deformities ENT: Normocephalic, normal hearing, moist mucosa CV: Pulses:Radial= 2+ and symmetric, capillary refill < 2 secs, no peripheral edema/varicosities Skin: no rash, bruising or lesions. Good turgor. Psych: cooperative and appropriate, alert and oriented x 3, good mood and affect. Musculoskeletal: Gentle waist level motion without pain. ER limited to 35 and FE to 90 IMAGING: IMPRESSION: Suspect right humeral neck fracture with extension into the greater tuberosity. Background of severe glenohumeral joint osteoarthritis limiting evaluation. Recommend CT for definitive characterization. ACTIONABLE RESULT: FOLLOW-UP Supporting Subjective Information Below: Past Medical History: PAST MEDICAL HISTORY Diagnosis Date Acute gastritis without mention of hemorrhage Allergic rhinitis, cause unspecified BMI 40.0-44.9, adult ([facility]) 08/02/2013 Cataract Corneal abrasion 20 y ago Depressive disorder, not elsewhere classified Diverticulosis of colon (without mention of hemorrhage) Elevated BP 08/04/15 Esophageal reflux Iron deficiency anemia, unspecified Ocular migraine Osteopenia PMH - PAST MEDICAL HISTORY OF schatski ring Past Surgical History: PAST SURGICAL HISTORY Procedure Laterality Date COLONOSCOPY [...] TUBE OVARY 10/20/2002 Hysterectomy, BETO left ovaries Family History: FAMILY HISTORY Problem Relation Age of Onset Heart Father thyroid cancer at age 39 other (Rheumatoid arthritis) Mother other (rheumatoid arthritis) Maternal Aunt other (rheumatoid arthritis) Maternal Aunt Social History: Social History Tobacco Use Smoking status: Never Smokeless tobacco: Never Vaping Use Vaping Use: Never used Substance Use Topics Alcohol use: No Drug use: No Medications: Current Outpatient Medications Medication Sig estradiol (ESTRACE) 0.01 % (0.1 mg/gram) vaginal cream APPLY 1 GRAM OF CREAM TO LOWER VAGINA AND A PEA SIZED AMOUNT TO THE OPENING OF THE VAGINA 3 TIMES WEEKLY meloxicam (MOBIC) 15 mg tablet Take 1 [...] 0.05 % ointment Apply half of one wsfrit-xhx-ecch to cover the affected area two days a week. omeprazole (PRILOSEC) 40 mg capsule TAKE 1 CAPSULE BY MOUTH ONCE DAILY zolpidem (AMBIEN) 10 mg Use half to one tablet as needed. Ferrous Gluconate 225 mg (27 mg iron) tab Take 1 tablet by mouth once daily. MAGNESIUM ORAL Take by mouth. multivitamin with minerals (HAIR,SKIN AND NAILS ORAL) Take by mouth. multivitamin tablet Take 1 tablet by mouth twice daily. loratadine(CLARITIN 10 MG TAB) Take one(1) tablet daily as needed for allergy symptoms. COMPOUNDED PRESCRIPTION Exercise 30 minutes daily 5 days weekly No current facility-administered medications for this visit. Allergies: Elliot Inhibitors, Cats, Norvasc [Amlodipine Besylate], Poison Kendy, Dust Mites, and Tree And Shrub Pollen ROS: General (negative for fatigue, malaise, weight loss/gain) HEENT (negative for headache, earache, recent vision changes, sinus pain, sore throat) Respiratory (no recent shortness of breath, hemoptysis) CV (negative for chest tightness, palpitations) Musculoskeletal (see HPI) Psych (no depression, anxiety) Torin Maza MD documented in this encounterAdena Health System02-21-2024 Miscellaneous Notes* Telephone Encounter - Josselin Stevens APRN.CNP - 12/10/2023 1:51 PM EST Order placed for early this September. Thank you Josselin tSevens APRN.CNP * Telephone Encounter - Lavonne Monroy - 12/09/2023 9:47 AM EST Patient needs new Bone Density order. She has to go out 09/18/2024 or later to be 2 years out from last scan. Order expires before then. Please advise. Lavonne Monroy, PSS documented in this encounterAdena Health System02-19-2024 History of Present illness Narrative* Maida العلي RT(R) - 12/08/2023 12:40 PM EST Radiology Service Progress Note PATIENT NAME: Jessica Worrell DATE OF SERVICE: December 08, 2023 TIME: 12:53 PM PATIENT IDENTITY VERIFICATION COMPLETED USING TWO (2) IDENTIFIERS: Name and Date of confirmedby patient verbally. FALL SCREENING: Has the patient had 2 falls in the last year or 1 fall with injury or currently using an Ambulatory Assistive Device (Walker, Cane, Wheelchair, Crutches, etc.)? No PATIENT GENDER DATA: Female. status: : No status: NO. 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 Pearl is a 72 year old who presents for an annual gynecologic exam without complaints. 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 History Comments: Sexual Activity: Yes; Male Contraception: No contraception data on record PAST MEDICAL HISTORY Diagnosis Date Acute gastritis without mention of hemorrhage Allergic rhinitis, cause unspecified BMI 40.0-44.9, adult ([facility]) 08/02/2013 Cataract Corneal abrasion 20 y ago [...] Aunt other (rheumatoid arthritis) Maternal Aunt SOCIAL HISTORY Social History Tobacco Use Smoking status: Never Smokeless tobacco: Never Vaping Use Vaping Use: Never used Substance Use Topics Alcohol use: No Drug use: No REVIEW OF SYSTEMS Abdomen: No abdominal pain, nausea, vomiting, diarrhea, or constipation. Bladder: No dysuria, gross hematuria, urinary frequency, urinary urgency, or incontinence Breast: No breast lumps, nipple d/c, overlying skin changes, redness or skin retraction Allergies and current medication updated:Yes EXAM: BP 120/76 Wt 240 lb (108.9kg) GENERAL: pleasant, female in no apparent distress HEENT: Normocephalic and atraumatic NECK: full range of motion BREAST: deferred and patient arm in sling CHEST: Normal inspiratory effort ABDOMEN: soft, non-tender, and no masses PELVIC: external genitalia atrophic, normal Bartholin's glands, urethra, [place]'s glands, no vulvar lesions, no cervical lesions, physiologic discharge present, normal appearing perineal body and perianal region BIMANUAL: no adnexal masses and non-tender RECTOVAGINAL: deferred. NEURO: exam grossly non-focal EXTREMITIES: normal ASSESSMENT/PLAN: 1) Health maintenance: Pap/HPV screening no longer needed Mammogram ordered Nutrition, exercise and routine health maintenance exams reviewed. Colon cancer screening: up to date with screening TSH/lipids/glucose: followed by PCP BMD: followed by PCP Lichen planus: Cont Clobetasol Atrophy: Cont vaginal estrogen 2) Follow up one year or sooner as needed Mira Joseph DO documented in this encounterAdena Health System02-06-2024 History of Present illness Narrative* Jessica Mcbride Ma - 11/25/2023 2:35 PM EST POPULATION HEALTH NAVIGATION OUTREACH Action/FYI LAWV 07/2022 FUS 04/08 Spoke to patient and scheduled Medicare Wellness Exam. Patient Identified by Name and : YES, via phone Outreach Outcome/Action Spoke to patient / parent / legal guardian: Patient scheduled Did you use a PCP flex slot to schedule this appointment? No Reason for Outreach Care Gap or Scheduling/Wellness visits Payer: Payor: [facility] MEDICARE / Plan: [facility] MEDICARE ADVANTAGE PPO / Product Type: PPO / Care Gap Reviewed:: Annual Wellness visit Reminder: Reminder note to check Health Maintenance for items below Health Maintenance items due: BP Controlled (<130/80) Never done RSV Vaccine(1 - 1-dose 60+ series) Never done Advance Directive Discussion due on 10/20/2023 Depression Assessment due on 10/20/2023 Navigation Signature: Jessica Mcbride Ma November 25, 2023 2:36 PM documented in this encounterAdena Health System12-07-2023 History of Present illness Narrative* Josselin Stevens APRN.CNP - 09/25/2023 1:13 PM EST CC: Patient presents with: Recheck: 3 month follow up HPI Jessica Worrell is a 72 year old female who presents today for routine follow up. HTN and HLD: Ms. Worrell indicates that she is feeling well and denies any symptoms referable to elevated blood pressure. Specifically denies headache, chest pain, palpitations, dyspnea, and peripheral edema. Patient denies any side effects of her medication(s) and is compliant with their regimen.She does not check BP's generally. [facility] and does home therapyexercises. She watches her diet for sodium, low [...] Allergic rhinitis, cause unspecified BMI 40.0-44.9, adult ([facility]) 08/02/2013 Cataract Corneal abrasion 20 y ago [...] OVARY 10/20/2002 Hysterectomy, BETO left ovaries ALLERGIES Elliot Inhibitors, Cats, Norvasc [Amlodipine Besylate], Poison Kendy, Dust Mites, and Tree AndShrub Pollen MEDICATIONS meloxicam (MOBIC) 15 mg tablet [...] 0.05 % ointment Apply half of one dhjvgx-ude-srye to cover the affected area two days [...] plan. Josselin Stevens APRN.CNP documented in this encounterAdena Health System11-17-2023 History of Present illness Narrative* Guanakito Reyna PT - 09/05/2023 4:24 PM EST Episode Visit Count: 9 Therapist That Will Accept/Oversee The Plan Of Care: Guanakito Reyna PT Start of Care Date: 07/15/23 Onset Date: 03/24/23 Plan of Care Certification Date: 08/12/23 Next Certification Due Date: 09/09/23 Patient Identified by Name and Date of : Yes REHABILITATION AND SPORTS THERAPY PHYSICAL THERAPY DISCONTINUANCE OF CARE PLAN OF CARE UPDATE: Assessment: Jessica Worrell is discontinued from Physical Therapy services due to goal achievement and maximal benefit. and Patient/Clinician mutual decision to discontinue current plan of care.. Patient was seen for 9 visits from Start of Care Date: 07/15/23 to 09/05/2023 and treatment included:Therapeutic exercise, Neuromuscular re-education, Self-halfway management, Patient/Family/Caregiver Education, Body mechanics training, Functional training, and General conditioning. Updated: 08/12/23 and 09/05/23 Goals for Episode of Care: created on 07/15/23 through 08/26/23 [place] in home exercise program. - MET Patient [...] 1553 Guanakito Reyna PT documented in this encounterAdena Health System11-14-2023 History of Present illness Narrative* Guanakito Reyna PT - 09/02/2023 3:30 PM EST Program_ID:[id number] Access Code: [email or web address] URL: [email or web address]/ Date: 09-02-2023 Prepared By: Guanakito Reyna Program [...] 7 x weekly - 2 - 10 * Guanakito Reyna, PT - 09/02/2023 2:50 PM EST Episode Visit Count: 8 Therapist That Will Accept/Oversee The Plan Of Care: Guanakito Reyna PT Start of Care Date: 07/15/23 Onset Date: 03/24/23 Plan of Care Certification Date: 08/12/23 Next Certification Due Date: 09/09/23 Patient Identified by Name and Date of : Yes REHABILITATION AND SPORTS THERAPY PHYSICAL THERAPY TREATMENT NOTE ASSESSMENT: Jessica Worrell tolerated the session with fatigue and decreased [...] 1531 Guanakito Reyna PT documented in this encounterAdena Health System11-03-2023 History of Present illness Narrative* Guanakito Reyna PT - 08/22/2023 2:58 PM EDT Episode Visit Count: 6 Therapist That Will Accept/Oversee The Plan Of Care: Guanakito Reyna PT Start of Care Date: 07/15/23 Onset Date: 03/24/23 Plan of Care Certification Date: 08/12/23 Next Certification Due Date: 09/09/23 Patient Identified by Name and Date of : Yes REHABILITATION AND SPORTS THERAPY PHYSICAL THERAPY TREATMENT NOTE ASSESSMENT: Jessica Worrell tolerated the session with fatigue. She demonstrated [...] Time (minutes): 34 Session Start Time : 1456 Session Stop Time : 1530 Josephine Gonzalez, DIRECTOR OF FINANCIAL AID Guanakito Reyna PT documented in this encounterAdena Health System10-27-2023 History of Present illness Narrative* Guanakito Reyna PT - 08/15/2023 2:49 PM EDT Episode Visit Count: 4 Therapist That Will Accept/Oversee The Plan Of Care: Guanakito Reyna PT Start of Care Date: 07/15/23 Onset Date: 03/24/23 Plan of Care Certification Date: 08/12/23 Next Certification Due Date: 09/09/23 Patient Identified by Name and Date of : Yes REHABILITATION AND SPORTS THERAPY PHYSICAL THERAPY TREATMENT NOTE ASSESSMENT: Jessica Worrell tolerated the session with fatigue and expected [...] 1530 MAAME Pritchard PT documented in this encounterAdena Health System10-24-2023 History of Present illness Narrative* Guanakito Reyna PT - 08/12/2023 5:00 PM EDT Episode Visit Count: 3 Therapist That Will Accept/Oversee The Plan Of Care: Guanakito Reyna PT Start of Care Date: 07/15/23 Onset Date: 03/24/23 Plan of Care Certification Date: 08/12/23 Next Certification Due Date: 09/09/23 Patient Identified by Name and Date of : Yes REHABILITATION AND SPORTS THERAPY PHYSICAL THERAPY PROGRESS REPORT PLAN OF CARE UPDATE: Assessment: Jessica Worrell demonstrates moderate improvement in rising from a [...] of Care: created on 07/15/23 through 08/26/23 [place] in home exercise program. - MET, will [...] Patient to be seen for Therapeutic exercise (64334), Neuromuscular re-education (00693), Manual therapy (52370), Therapeutic activities (55410), Self-halfway management (17100), Gait Training (89475), Patient/Family/Caregiver Education, General Conditioning, Body Mechanics Training [...] Inches (cm) Waist to Hip Ratio:: 0.92 [place] waist/hip ratio: Female: 0.8 or Less 4 [...] 1539 Guanakito Reyna PT documented in this encounterAdena Health System10-20-2023 History of Present illness Narrative* Guanakito Reyna PT - 08/08/2023 4:20 PM EDT Episode Visit Count: 2 Therapist That Will Accept/Oversee The Plan Of Care: Guanakito Reyna PT Start of Care Date: 07/15/23 Onset Date: 03/24/23 Plan of Care Certification Date: 07/15/23 Next Certification Due Date: 08/26/23 Patient Identified by Name and Date of : Yes REHABILITATION AND SPORTS THERAPY PHYSICAL THERAPY TREATMENT NOTE ASSESSMENT: Jessica Worrell tolerated the session with fatigue, expected muscle [...] Knee - Right, Knee - Left Description: (no, not significantly) Frequency: Intermittent, With movement, Walking, Stairs Post [...] not be doing balance exercises at home secondaryto risk of falling. Skilled Intervention: Skilled judgment [...] 1555 Guanakito Reyna PT documented in this encounterAdena Health System09-07-2023 History of Present illness Narrative* Josselin Stevens APRN.POINT OF CARE TECHNICIAN - 06/26/2023 10:50 AM EDT CC: Patient presents with: Recheck: 6 month follow up HPI Jessica Worrell is a 72 year old female who presents today for routine follow up. HTN and HLD: Ms. Worrell indicates that she is feeling well and denies any symptoms referable to elevated blood pressure. Specifically denies headache, chest pain, palpitations, dyspnea, and peripheral edema. Patient denies any side effects of her medication(s) and is compliant with their regimen.She does not check BP's generally. Jessica denies [...] but does try to be careful because ofthe pain and her balance. In 2009 had surgery for ripped quad tendon. Had MRI of both knees at thattime. Denies any injury, redness, fever, or change [...] have 2 year follow up. Had an EGDearlier last year for difficulty swallowing without noted [...] Allergic rhinitis, cause unspecified BMI 40.0-44.9, adult ([facility]) 08/02/2013 Cataract Corneal abrasion 20 y ago [...] OVARY 10/20/2002 Hysterectomy, BETO left ovaries ALLERGIES Elliot Inhibitors, Cats, Norvasc [Amlodipine Besylate], Poison Kendy, Dust Mites, and Tree AndShrub Pollen MEDICATIONS losartan (COZAAR) 50 mg tablet TAKE 1 TABLET BY MOUTH TWICE DAILY loperamide HCl (IMODIUM) 2 mg tab Take 1 tablet by mouth as needed. acetaminophen (TYLENOL ARTHRITIS PAIN) 650 mg CR tablet Take 1 tablet by mouth every 8 hours as needed. clobetasol (TEMOVATE) 0.05 % ointment Apply half of one yqrjxx-xwe-arbc to cover the affected area two days [...] plan. Josselin Stevens APRN.CNP documented in this encounterAdena Health System08-15-2023 Miscellaneous Notes* Telephone Encounter - Sienna Cruz LPN - 06/03/2023 1:16 PM EDT Patient has been identified by name and date of : No Patient phones for refill(s): Requested Prescriptions Pending Prescriptions Disp Refills losartan (COZAAR) 50 mg tablet [Pharmacy Med Name: Losartan Potassium 50 MG Oral Tablet] 180 tablet3 Sig: TAKE 1 TABLET BY MOUTH TWICE [...] you. Sienna Cruz LPN documented in this encounterAdena Health System07-28-2023 Instructions* Patient Instructions* Josselin Stevens APRN.CNP - 05/16/2023 12:11 PM EDT Images from the original note were not included. FACT SHEET FOR PATIENTS, PARENTS, AND CAREGIVERS EMERGENCY USE AUTHORIZATION (EUA) OF PAXLOVID FOR CORONAVIRUS DISEASE 2019 (COVID-19) You are being given this Fact Sheet because your healthcare provider believes it is necessary to provide you with PAXLOVID for the treatment of lcoo-bu-iqkagcgv coronavirus disease (COVID-19) caused by the SARS-CoV-2 virus. This Fact Sheet contains information to help you understand the risks and benefits of taking the PAXLOVID you may receive. This Fact Sheet also contains information about how t o take PAXLOVID and how to report side effects or problems with the appearance or packaging of PAXLOVID. The U.S. Food and Drug Administration (FDA) has issued an Emergency Use Authorization (EUA) to makePAXLOVID available for the treatment of ooxe-ql-jiefqeen COVID-19 in adults and children 12 years [...] You can get COVID-19 through close contact withanother person who has the virus. COVID-19 illnesses have ranged from very rgvh-hc-dsbyvh, including illness resulting in . While information so far suggests that most COVID-19 illness is mild, serious illness can happen and maycause some of your other medical conditions to become worse. Older people and people of all ages with severe, long lasting (chronic) medical conditions like heart disease, lung disease, and diabetes,for example seem to be at higher risk of being hospitalized for COVID-19. What is PAXLOVID? PAXLOVID is a medicine that is available under EUA for the treatment of owfr-wt-gcvoiwxq COVID-19 in adults and children 12 years of age and older weighing at least 88 pounds (40 kg) who are at high risk for progression to severe COVID-19, including hospitalization or . Although PAXLOVID is FDA- approved for the treatment of COVID-19 in certain adults (see section What other treatment choicesare there?), PAXLOVID use in children remains investigational because it is still being studied. There is limited information about the safety and effectiveness of using PAXLOVID to treat children with dnkb-ln-scksviyo COVID-19. What is the most important information [...] o ranolazine o rifampin o rifapentine o [place] s Wort (hypericum perforatum) o sildenafil (Revatio [...] the medicines you take, including prescription and aknq-avb-xjrhdxf medicines, vitamins, and herbal supplements. Your healthcare [...] morning or evening, depending on when you pick pack worker your prescription, or as your healthcare provider [...] missed dose and take the next dose atyour regular time. Do not take 2 doses [...] PAXLOVID is FDA-approved for the treatment of yaim-dk-rbupnzpt COVID-19 in certain adults; however,there are not sufficient quantities of the approved presentations (i.e., dose packs) of PAXLOVID atthis time. This EUA continues to authorize the emergency use of PAXLOVID for the approved patient population to ensure continued access in order to meet the public health need. VEKLURY (remdesivir) is FDA-approved for the treatment of livx-tg-ddyxpgbs COVID-19 in certain adults and children. Talk with your healthcare provider to see if VEKLURY is appropriate for you. For information on the emergency use of other medicines that are authorized by FDA to treat people with COVID-19, please go to https://www.fda.gov/vjvpjxwwz-qvgggoaohmvv-acw-response/jtv-iwpss-fbtmgqd xxg-nsm-tzycnd-framework/xbjynvqhe-vel-pmwtkwmgvyzlo. Your healthcare provider may talk with you [...] to FDA MedWatch at www.fda.gov/medwatch or call 7-526-LTF-0506 or you can report side effects to [employer]. at the contact information provided below. How [...] bottom of blister pack at this website: https://www.[employer]/ or talk with your healthcare provider. Information onthe authorized shelf-life extensions for PAXLOVID may also be found at https://www.fda.gov/emergency -oqbygszickaf-cdw-wrqktnpf/jpf-dnnur-ryxyoefwzi-koq-sddobi-zqjkyeafb/expiration- dating-extension. How can I learn more about COVID-19? Ask your healthcare provider. Visit https://www.cdc.gov/COVID19. Contact your local or state public health department. What is an Emergency Use Authorization (EUA)? The [place] FDA has made PAXLOVID available under an emergency access mechanism called an Emergency Use Authorization (EUA). The EUA is supported by a [place] of Health and Human Services ([facility]) declaration that circumstances exist to justify the [...] call the telephone number provided below. Website: www.NEHVM40ryknQw.[facility] Telephone number: (1-877-c19-PACK) Distributed by [employer] [place] [address] [id number] Revised: 02/2023 FACT SHEET FOR PATIENTS, PARENTS, AND CAREGIVERS EMERGENCY USE AUTHORIZATION (EUA) OF PAXLOVID FOR CORONAVIRUS DISEASE 2019 (COVID-19) You are being given this Fact Sheet because your healthcare provider believes it is necessary to provide you with PAXLOVID for the treatment of smzs-ao-jsqokckd coronavirus disease (COVID-19) caused by the SARS-CoV-2 virus. This Fact Sheet contains information to help you understand the risks and benefits of taking the PAXLOVID you may receive. This Fact Sheet also contains information about how t o take PAXLOVID and how to report side effects or problems with the appearance or packaging of PAXLOVID. The U.S. Food and Drug Administration (FDA) has issued an Emergency Use Authorization (EUA) to makePAXLOVID available for the treatment of ejft-ho-aabjtucc COVID-19 in adults and children 12 years [...] You can get COVID-19 through close contact withanother person who has the virus. COVID-19 illnesses have ranged from very qldc-hb-ytsbfm, including illness resulting in . While information so far suggests that most COVID-19 illness is mild, serious illness can happen and maycause some of your other medical conditions to become worse. Older people and people of all ages with severe, long lasting (chronic) medical conditions like heart disease, lung disease, and diabetes,for example seem to be at higher risk of being hospitalized for COVID-19. What is PAXLOVID? PAXLOVID is a medicine that is available under EUA for the treatment of ykzi-ec-atgnutyg COVID-19 in adults and children 12 years of age and older weighing at least 88 pounds (40 kg) who are at high risk for progression to severe COVID-19, including hospitalization or . Although PAXLOVID is FDA- approved for the treatment of COVID-19 in certain adults (see section What other treatment choicesare there?), PAXLOVID use in children remains investigational because it is still being studied. There is limited information about the safety and effectiveness of using PAXLOVID to treat children with bgfq-rs-ftvjslyn COVID-19. What is the most important information [...] the medicines you take, including prescription and txhi-nrk-uflkyvp medicines, vitamins, and herbal supplements. Your healthcare [...] morning or evening, depending on when you pick pack worker your prescription, or as your healthcare provider [...] missed dose and take the next dose atyour regular time. Do not take 2 doses [...] PAXLOVID is FDA-approved for the treatment of pdlv-ly-orhiwxys COVID-19 in certain adults; however,there are not sufficient quantities of the approved presentations (i.e., dose packs) of PAXLOVID atthis time. This EUA continues to authorize the emergency use of PAXLOVID for the approved patient population to ensure continued access in order to meet the public health need. VEKLURY (remdesivir) is FDA-approved for the treatment of drcc-ml-jgstgnvk COVID-19 in certain adults and children. Talk with your healthcare provider to see if VEKLURY is appropriate for you. For information on the emergency use of other medicines that are authorized by FDA to treat people with COVID-19, please go to https://www.fda.gov/cmwmuyqbu-loupekqkonbk-yyj-response/adb-uybmk-lyxntpr mzm-pfv-qqiuuq-framework/rbopkfqhb-yqn-pdvelsbtxszns. Your healthcare provider may talk with you [...] to FDA MedWatch at www.fda.gov/medwatch or call 7-168-VWV-0159 or you can report side effects to [employer]. at the contact information provided below. How [...] bottom of blister pack at this website: https://www.[email or web address].[facility]/ or talk with your healthcare provider. Information onthe authorized shelf-life extensions for PAXLOVID may also be found at https://www.fda.gov/emergency -zmeqsyogwprp-wtt-fxogoejz/bnw-haotm-kqymfcpofn-coz-iregkx-rmducvdmr/expiration- dating-extension. How can I learn more about COVID-19? Ask your healthcare provider. Visit https://www.cdc.gov/COVID19. Contact your local or state public health department. What is an Emergency Use Authorization (EUA)? The [place] FDA has made PAXLOVID available under an emergency access mechanism called an Emergency Use Authorization (EUA). The EUA is supported by a [place] of Health and Human Services (HHS) declaration [...] call the telephone number provided below. Website: www.[email or web address].[facility] Telephone number: (1-877-c19-PACK) Distributed by [employer] [place] [address] [id number] Revised: 02/2023 documented in this encounterAdena Health System07-28-2023 History of Present illness Narrative* Josselin Stevens APRN.CNP - 05/16/2023 11:57 AM EDT This Team Access Model visit is a phone encounter. It required patient-provider interaction for themedical decision making as documented below. Patient agrees to the visit: Yes Patient Location: [place] CC: Patient presents with: COVID HPI Jessica Worrell is a 72 year old female who is contacted today for a phone visit. This is an established patient of Deneen Andrade MD. Was scheduled for virtual visit [...] Allergic rhinitis, cause unspecified BMI 40.0-44.9, adult ([facility]) 08/02/2013 Cataract Corneal abrasion 20 y ago [...] OVARY 10/20/2002 Hysterectomy, BETO left ovaries ALLERGIES Elliot Inhibitors, Cats, Norvasc [Amlodipine Besylate], Poison Kendy, Dust Mites, and Tree AndShrub Pollen MEDICATIONS omeprazole (PRILOSEC) 40 mg capsule TAKE 1 CAPSULE BY MOUTH ONCE DAILY clobetasol (TEMOVATE) 0.05 % ointment Apply half of one rpruqs-htr-tzun to cover the affected area two days [...] APRN.HERACLIO Nirmatrelvir/Ritonavir (Paxlovid) Eligibility and Patient Discussion [facility] Formulary Restriction Criteria: Adult outpatients 18 years [...] reported. The discussion included alternatives to receiving nirmatrelvir/rit onavir, including clinical trials, and potential the risks and benefits of those alternatives. The patient was provided electronically with the Fact Sheet for Patients, Parents and Caregivers. The patient was also instructed that in addition to the treatment with nirmatrelvir/ritonavir, he/she should continue to self-isolate and use infection control measures (e.g., wear mask, isolate, social distance, avoid sharing personal items, clean and disinfect high touch surfaces, and frequent h andwashing) according to CDC guidelines. The patient stated understanding and gave verbal consent to proceeding with nirmatrelvir/ritonavir treatment. Josselin Stevens APRN.CNP May 16, 2023 12:13 PM documented in this encounterAdena Health System07-26-2023 Miscellaneous Notes* Telephone Encounter - Josselin Stevens APRN.CNP - 05/14/2023 5:25 PM EDT Noted Josselin Stevens APRN.CNP * Telephone Encounter - Kirsten Whitehead RN - 05/14/2023 3:47 PM EDT Pt called in and reports she thought she started with a cold yesterday, but today she began gettinga headache and tested positive for Covid. Pt [...] with SARS-CoV-2, the virus that causes COVID-19, frompeople who are not infected. People who are [...] to your local emergency facility: Notify the hydrotreater operator that you are seeking care for [...] expert at your local health department to determinewhen you can be around others. documented in this encounterAdena Health System07-12-2023 Miscellaneous Notes* Telephone Encounter - Karina Stanley RN - 04/30/2023 12:07 PM EDT Patient called. She is needing her [facility]. Can you please cancel previous RX in SW's absence. Thank you. Requested Prescriptions Pending Prescriptions Disp Refills clobetasol (TEMOVATE) 0.05 % ointment 60 g 3 Sig: Apply half of one keyoci-zra-aczc to cover the affected area two days a week. Karina Stanley RN documented in this encounterAdena Health System07-10-2023 Miscellaneous Notes* Telephone Encounter - Natalie Sanford LPN - 04/28/2023 1:36 PM EDT Please see pt's mychart message and further advise. Pt was last seen in the office on 02/08/22. Please advise. Natalie Sanford LPN documented in this encounterAdena Health System06-26-2023 Miscellaneous Notes* Letter - Mammography Coordinator - 04/14/2023 2:05 PM EDT April 16, 2023 PID: [id number] Jessica Worrell [address] [place] [id number] Dear Ms. Worrell, We are pleased to inform you that [...] report will be kept on file at [facility] as part of your permanent medical record and are available for your continuing care. Thank you for allowing us to help in meeting your health care needs. Sincerely, Dr. Cotton Interpreting Radiologist [facility] (Normal over 40) documented in this encounterAdena Health System05-12-2023 Miscellaneous Notes* Telephone Encounter - Sienna Cruz LPN - 02/28/2023 9:45 AM EDT Patient has been identified by name and [...] you. Sienna Cruz LPN documented in this encounterAdena Health System03-24-2023 Miscellaneous Notes* Telephone Encounter - NIC Strauss - 01/10/2023 2:02 PM EDT Patient has been identified by name and [...] Thank you. NIC Strauss documented in this encounterAdena Health System02-23-2023 Instructions* Patient Instructions* Deneen Garcia MD - 12/12/2022 11:35 AM EST BONE MINERAL DENSITY PATIENT INSTRUCTIONS Bone mineral density testing measures the amount of calcium in certain parts of your bones. This information determines how strong your bones are. The test is used to detect osteoporosis, a disease in which the bone's mineral content and density are low, increasing a person's risk of fractures. Thelumbar spine (lower back) and the hip are [...] your usual activities immediately. documented in this encounterAdena Health System02-23-2023 History of Present illness Narrative* Deneen Garcia MD - 12/12/2022 11:32 AM EST Reason for Visit Patient presents with: Recheck: 4 month Jessica Worrell is a 71 year old female who [...] Allergic rhinitis, cause unspecified BMI 40.0-44.9, adult ([facility]) 08/02/2013 Cataract Corneal abrasion 20 y ago [...] lifestyle changes and recheck In 6 months Deneen Garcia MD documented in this encounterAdena Health System12-05-2022 Miscellaneous Notes* Telephone Encounter - Mira Joseph MD - 09/23/2022 11:52 AM EST filed * Telephone Encounter - Crissy Koenig RN - 09/23/2022 10:58 AM EST Last visit with 01/2022. Pharmacy requesting larger sized tube. Requested [...] patient. Crissy Koenig RN documented in this encounterAdena Health System12-01-2022 Miscellaneous Notes* Telephone Encounter - Keesha Cortes Ma - 09/19/2022 9:43 AM EST Patient notified. * Telephone Encounter - Josselin Stevens APRN.HERACLIO - 09/19/2022 8:59 AM EST Please let patient know that her bone density shows osteopenia. Continue with current calcium and vit D supplement but I would like to get lab work completed to make sure dosage is appropriate. She can do these prior to her appointment in November with Dr. Garcia. I have ordered all fasting lab workfor hte upcoming appointment. Walking, weight bearing exercise, resistance training , limiting alcohol and not smoking are also good ways to help maintain your bone mass. We will repeat the bone density in two years. Thank you Josselin Stevens APRN.HERACLIO documented in this encounterAdena Health System11-09-2022 Miscellaneous Notes* Telephone Encounter - Sienna Cruz LPN - 08/28/2022 10:37 AM EST Patient has been identified by name and [...] you. Sienna Cruz LPN documented in this encounterAdena Health System10-13-2022 Miscellaneous Notes* Telephone Encounter - Mira Joseph MD - 08/01/2022 11:47 AM EDT Please let patient know I am sorry for a delayed response as I was out of the office until today. Recommend not having intercourse right after placement given possible absorption. Would wait until following day to have intercourse. If he feels he is having any new symptoms, to call his PCP documented in this encounterAdena Health System10-13-2022 History of Present illness Narrative* Dariel Patel, OD - 08/01/2022 11:46 AM EDT 1. Diplopia Adjusted prism to account for increase in diplopia Educated pt on adaptation 2. Combined forms of age-related cataract of both eyes Slightly worse-continue to monitor 3. Myopia of both eyes 4. Presbyopia 5. Regular astigmatism of both eyes Finalized new spec rx Follow-up yearly or sooner as needed Dariel Patel OD August 01, 2022 11:46 AM documented in this encounterAdena Health System10-12-2022 Miscellaneous Notes* Telephone Encounter - Christine Morillo LPN - 07/31/2022 4:36 PM EDT PATIENT NOTIFIED OF SAME. [facility]. * Telephone Encounter - Josselin Stevens APRN.CNP - 07/31/2022 2:13 PM EDT Please let patient know prescription has been sent. Please call and verify this was [facility] Thank you Josselin Stevens APRN.HERACLIO * Telephone Encounter - Brittney Ventura LPN - 07/29/2022 3:38 PM EDT Pt calls to report that rx went [...] to pharmacy. No need to notify patient. Britteny Ventura LPN documented in this encounterAdena Health System10-10-2022 Miscellaneous Notes* Telephone Encounter - Josselin Stevens APRN.CNP - 07/29/2022 1:04 PM EDT PDMP website checked and validated. All prescriptions have been APPROPRIATELY filled. No suspiciousactivity was identified. 07/29/2022 by Josselin Stevens APRN.POINT OF CARE TECHNICIAN * Telephone Encounter - Sienna Cruz LPN - 07/29/2022 8:35 AM EDT Patient has been identified by name and [...] you. Sienna Cruz LPN documented in this encounterAdena Health System10-04-2022 History of Present illness Narrative* Deneen Garcia MD - 07/23/2022 11:00 AM EDT Medicare Yearly Visit Medical B eligibilty date age 66 Date of last exam none in the past year PAST MEDICAL HISTORY Diagnosis Date Acute gastritis without mention of hemorrhage Allergic rhinitis, cause unspecified BMI 40.0-44.9, adult ([facility]) 08/02/2013 Cataract Corneal abrasion 20 y ago [...] OVARY 10/20/2002 Hysterectomy, BETO left ovaries ALLERGIES: Elliot Inhibitors, Cats, Norvasc [Amlodipine Besylate], Poison Kendy, Dust Mites, and Tree And Shrub Pollen [...] bars in the bathroom, lack of handrails onthe stairs or have poor lighting? No Hearing Evaluation: mildly decreased PHYSICAL EXAM BP 132/92 (BP Site: Left Arm, BP Position: Sitting, BP Cuff Size: Large Adult) Pulse 95 Temp 36.4 C (97.5 F) Resp 18 Ht 160 cm (5' 3) Wt 103.9 kg (229 lb) SpO2 99% BMI 40.57 kg/m Alert and oriented X 3: YES Body mass index is 40.57 kg/m . ASSESSMENT/PLAN: 71 year old female The following prevention plan was discussed during the office visit and provided to the patient: - Lipid panel - Glaucoma screening Deneen Garcia MD documented in this encounterAdena Health System09-30-2022 Miscellaneous Notes* Telephone Encounter - Aleah Yu Ma - 07/19/2022 3:40 PM EDT [facility] * Telephone Encounter - Aleah Yu Ma - 07/19/2022 12:50 PM EDT Mychart sent * Telephone Encounter - Josselin Stevens APRN.CNP - 07/17/2022 5:03 PM EDT Which pharmacy would patient like to have this sent to? It is preferable to electronically prescribe controlled substances versus using paper prescription. Thank you Josselin Stevens APRN.CNP * Telephone Encounter - Josselin Stevens APRN.CNP - 07/17/2022 5:02 PM EDT PDMP website checked and validated. All prescriptions have been APPROPRIATELY filled. No suspiciousactivity was identified. 07/17/2022 by Josselin Stevens APRN.CNP * Telephone Encounter - Rand Granados LPN - 07/16/2022 8:19 AM EDT Patient has been identified by name and [...] you. Rand Granados LPN documented in this encounterAdena Health System07-04-2022 Miscellaneous Notes* Telephone Encounter - Usama Stone RN - 04/22/2022 8:08 AM EDT Reason for call: Patient stated she tested positive for Covid-19 on 04/19/22 and questions whether she needs to be seen. Outcome: Patient was advised to seek a virtual PCP appointment today per Nurse butcher scullion Covid-19 protocol crosswalk. Patient confirmed she will seek a virtual visit using [facility] via aditya. Reason for Disposition HIGH RISK for severe COVID complications (e.g., weak immune system, age > 64 years, obesity withBMI > 25, , chronic lung disease or other chronic medical condition) (Exception: Alreadyseen by PCP and no new or worsening symptoms.) Answer Assessment - Initial Assessment Questions 1. COVID-19 DIAGNOSIS: tested positive 04/19/22 with home test 2. COVID-19 EXPOSURE: unknown, returned from [facility] 04/21/22 3. ONSET: 04/16/22 4. WORST SYMPTOM: Intermittent sore throat rated 2/10 described as dull, took extra strength tylenol at 0100 without relief and stuffy nose 5. COUGH: yes, productive of yellow mucous 6. FEVER: no 7. RESPIRATORY STATUS: normal 8. UYESDS-RMWK-JJVHG: same 9. HIGH RISK DISEASE: HTN and obesity 10. VACCINE: yes, 2 11. BOOSTER: yes, 2 12. :N/A 13. OTHER SYMPTOMS: mild headache like a band around head at times rated 3/10, described as dull, neck pain 14. O2 SATURATION MONITOR: N/A Protocols used: CORONAVIRUS (COVID-19) DIAGNOSED OR [id number]-SUIQU-IL documented in this encounterAdena Health System06-22-2022 History of Present illness Narrative* Deneen Garcia MD - 04/10/2022 4:27 PM EDT Reason for Visit Patient presents with: Same Day Appointment: BP issues Jessica Worrell is a 71 year old female who [...] Allergic rhinitis, cause unspecified BMI 40.0-44.9, adult ([facility]) 08/02/2013 Cataract Corneal abrasion 20 y ago [...] F) Resp 14 Ht 160 cm (5' 3) Wt 107.5 kg (237 lb) SpO2 97% [...] ICD10: Z68.41 Stable - Continue current medications Deneen Garcia MD documented in this encounterAdena Health System06-13-2022 Miscellaneous Notes* Telephone Encounter - Rand Granados LPN - 04/01/2022 8:57 AM EDT Patient has been identified by name and [...] you. Rand Granados LPN documented in this encounterAdena Health System06-11-2022 Instructions* Patient Instructions* Martina Gonzales APRN.CNP - 03/30/2022 12:13 PM EDT 1.) Increase losartan to 1.5 tablets (75 mg) daily. 2.) Check blood pressure at home twice daily, write down numbers and bring to next visit. 3.) Continue to watch salt and processed foods in the diet.. 4.) Follow-up with PCP in 2 weeks. documented in this encounterAdena Health System06-11-2022 History of Present illness Narrative* Martina Gonzales APRN.CNP - 03/30/2022 11:55 AM EDT This is a 71 year old female who presents today with: Patient presents with: Headache: elevated BP, taken prior to taking BP medications HISTORY OF PRESENT ILLNESS: Jessica Worrell is a 71 year old female. Patient presents with: Headache: elevated BP, taken prior to taking BP medications Patient of Dr. Garcia here for headache and BP concerns. Mild headache yesterday. Headache was stillpresent this morning but seemed worse. Pain is in the front of the head and does not radiate. No N/V. History of headaches but has never needed prescription medication. Currently taking Meloxicam 15 mg daily but took tylenol arthritis. Traveled last weekend to [place]. Checked blood pressure at home today SBP 150-170's. Currently taking losartan 50 mg daily. PAST MEDICAL HISTORY: PAST MEDICAL HISTORY Diagnosis Date Acute gastritis without mention of hemorrhage Allergic rhinitis, cause unspecified BMI 40.0-44.9, adult ([facility]) 08/02/2013 Cataract Corneal abrasion 20 y ago [...] OVARY 10/20/2002 Hysterectomy, BETO left ovaries ALLERGIES Elliot Inhibitors, Cats, Norvasc [Amlodipine Besylate], Poison Kendy, Dust Mites, and Tree AndShrub Pollen MEDICATIONS Current Outpatient Medications Medication Sig [...] 0.05 % ointment Apply half of one euejba-nvf-mzml to cover the affected area two days [...] APRN.HERACLIO This note was partially generated using Lemon[employer] voice recognition system. Note was reviewed for accuracy. There may be minor misspellings or grammar miscues with Lemon[employer] voice recognition. documented in this encounterAdena Health System06-01-2022 Miscellaneous Notes* Telephone Encounter - Crissy Koenig RN - 03/20/2022 12:14 PM EDT See 03/20/22 YourPOV.TV message regarding dose. Will have provider review that and order if needed. Crissy Giauque RN documented in this encounterAdena Health System05-23-2022 Miscellaneous Notes* Telephone Encounter - Sienna Cruz LPN - 03/11/2022 2:44 PM EDT Patient has been identified by name and [...] you. Sienna Cruz LPN documented in this encounterAdena Health System04-22-2022 History of Present illness Narrative* Mira Joseph MD - 02/08/2022 1:41 PM EDT Jessica Worrell is a 71 year old female who presents for follow up. HPI: Started using the estrogen cream 4 days ago. Was getting up q 30 - 45 min to urinate overnight. Since starting the estrogen cream she has noticed a significant improvement in urinary urgency andis only having to use the restroom overnight twice. Drinks caffeine and alcohol very infrequently. Some urge incontinence during the day and she attributes this to not using the restroom when she needs to. Happy with the estrogen cream at this time. No new complaints. 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 History LMP: Hysterectomy Age at Menarche: Age at First : Age at Menopause: Tip Out Worker History Comments: Sexual Activity: Yes; Male Contraception: No contraception data on record PAST MEDICAL HISTORY Diagnosis Date Acute gastritis without mention of hemorrhage Allergic rhinitis, cause unspecified BMI 40.0-44.9, adult ([facility]) 08/02/2013 Cataract Corneal abrasion 20 y ago [...] 0.05 % ointment Apply half of one cldnra-zat-ddwg to cover the affected area two days [...] As of Date: 02/08/2022 Allergen Noted Reaction ELLIOT INHIBITORS 11/18/2017 Cough CATS 11/30/2019 Other: See Comments NORVASC [AMLODIPINE BESYLATE] 08/14/2016 Intolerance POISON KENDY 04/06/2015 Other: See Comments DUST MITES 03/06/2021 [...] Level: 3 - Low documented in this encounterAdena Health System04-04-2022 History of Present illness Narrative* Mira Joseph MD - 01/21/2022 11:01 AM EDT Jessica Worrell is a 71 year old female who presents for problem visit. HPI: Currently on Clobetasol cream for lichen planus. Had vulvar biopsy as noted below. Has noticedlabial bumps and a sharp, shooting pain up her vagina into her pelvis. The pain comes at random andlasts a few seconds, and then resolved on its own. History of hysterectomy and she reports she still has her ovaries. She reports some procedure for preventing prolapse at time of hysterectomy. The bu mps are not painful or draining. No bleeding. She noticed a fissure or a split in her skin recentlyas well. 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 History LMP: Hysterectomy Age at Menarche: Age at First : Age at Menopause: Tip Out Worker History Comments: Sexual Activity: Yes; Male Contraception: No contraception data on record PAST MEDICAL HISTORY Diagnosis Date Acute gastritis without mention of hemorrhage Allergic rhinitis, cause unspecified BMI 40.0-44.9, adult ([facility]) 08/02/2013 Cataract Corneal abrasion 20 y ago [...] 0.05 % ointment Apply half of one hqfjtx-bib-baoi to cover the affected area two days [...] As of Date: 01/21/2022 Allergen Noted Reaction ELLIOT INHIBITORS 11/18/2017 Cough CATS 11/30/2019 Other: See Comments NORVASC [AMLODIPINE BESYLATE] 08/14/2016 Intolerance POISON KENDY 04/06/2015 Other: See Comments DUST MITES 03/06/2021 [...] genitalia atrophic appearing, normal Bartholin's glands, urethra, [place]'s glands, no vulvar lesions, physiologic discharge present, vagina atrophic appearing, several firm yellow appearing < 1 cm lesions noted scattered about the bilateral labia consistent with epidermoid cysts BIMANUAL: no adnexal masses and non-tender NEURO: exam grossly non-focal EXTREMITIES: normal ASSESSMENT AND PLAN: Encounter Diagnosis ICD-10-CM 1. Pelvic pain in female R10.2 PELVIC US I US FEMALE PELVIS TRANSVAG 2. Vulvar atrophy N90.5 estradiol (ESTRACE) 0.01 % (0.1 mg/gram) vaginal cream 3. Vaginal atrophy N95.2 estradiol (ESTRACE) 0.01 % (0.1 mg/gram) vaginal cream 4. Urge incontinence N39.41 URINALYSIS, WITH MICROSCOPIC URINE CULTURE 5. Epidermoid cyst L72.0 6. Cystocele, midline N81.11 Continue Clobetasol cream twice weekly. Vulvar exam significant for atrophy and multiple epidermoidcysts - no biopsy indicated today. Will start estrogen cream as well after discussion of r/b. Checkpelvic US for pelvic pain. Check UA and [...] Level: 4 - Moderate [facility] Misc[facility] Notes* Telephone Encounter - Maria D Garaynate PEREZ - 01/10/2022 5:04 PM EDT Patient has been identified by name and [...] Maria D Calderon LPN documented in this encounter[facility] History of Past illness Narrative* Problem Noted Date Resolved Date Leucocytosis 03/09/2013 04/06/2015 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/01/20102014 Depressive disorder, not elsewhere classified 11/19/2019 documented as of this encounter (statuses as of 01/11/2022) [facility] Narrative* Problem Noted Date Resolved Date Leucocytosis 03/09/2013 04/06/2015 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/01/20102014 Depressive disorder, not elsewhere classified 11/19/2019 documented as of this encounter (statuses as of 01/21/2022) [facility] Narrative* Problem Noted Date Resolved Date Leucocytosis 03/09/2013 04/06/2015 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/01/20102014 Depressive disorder, not elsewhere classified 11/19/2019 documented as of this encounter (statuses as of 02/08/2022) [facility] Narrative* Problem Noted Date Resolved Date Leucocytosis 03/09/2013 04/06/2015 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/01/20102014 Depressive disorder, not elsewhere classified 11/19/2019 documented as of this encounter (statuses as of 02/09/2022) [facility] Narrative* Problem Noted Date Resolved Date Leucocytosis 03/09/2013 04/06/2015 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/01/20102014 Depressive disorder, not elsewhere classified 11/19/2019 documented as of this encounter (statuses as of 03/11/2022) [facility] Narrative* Problem Noted Date Resolved Date Leucocytosis 03/09/2013 04/06/2015 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/01/20102014 Depressive disorder, not elsewhere classified 11/19/2019 documented as of this encounter (statuses as of 03/20/2022) [facility]* Problem Noted Date Resolved Date Leucocytosis 03/09/2013 04/06/2015 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/01/20102014 Depressive disorder, not elsewhere classified 11/19/2019 documented as of this encounter (statuses as of 03/30/2022) [facility]* Problem Noted Date Resolved Date Leucocytosis 03/09/2013 04/06/2015 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/01/20102014 Depressive disorder, not elsewhere classified 11/19/2019 documented as of this encounter (statuses as of 04/01/2022) [facility]* Problem Noted Date Resolved Date Leucocytosis 03/09/2013 04/06/2015 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/01/20102014 Depressive disorder, not elsewhere classified 11/19/2019 documented as of this encounter (statuses as of 04/11/2022) [facility]* Problem Noted Date Resolved Date Leucocytosis 03/09/2013 04/06/2015 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/01/20102014 Depressive disorder, not elsewhere classified 11/19/2019 documented as of this encounter (statuses as of 04/22/2022) [facility]* Problem Noted Date Resolved Date Leucocytosis 03/09/2013 04/06/2015 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/01/20102014 Depressive disorder, not elsewhere classified 11/19/2019 documented as of this encounter (statuses as of 07/22/2022) [facility]arrative* Problem Noted Date Resolved Date Leucocytosis 03/09/2013 04/06/2015 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/01/20102014 Depressive disorder, not elsewhere classified 11/19/2019 documented as of this encounter (statuses as of 07/23/2022) [facility]* Problem Noted Date Resolved Date Leucocytosis 03/09/2013 04/06/2015 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/01/20102014 Depressive disorder, not elsewhere classified 11/19/2019 documented as of this encounter (statuses as of 07/29/2022) [facility]* Problem Noted Date Resolved Date Leucocytosis 03/09/2013 04/06/2015 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/01/20102014 Depressive disorder, not elsewhere classified 11/19/2019 documented as of this encounter (statuses as of 07/31/2022) [facility]* Problem Noted Date Resolved Date Leucocytosis 03/09/2013 04/06/2015 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/01/20102014 Depressive disorder, not elsewhere classified 11/19/2019 documented as of this encounter (statuses as of 08/01/2022) [facility]* Problem Noted Date Resolved Date Leucocytosis 03/09/2013 04/06/2015 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/01/20102014 Depressive disorder, not elsewhere classified 11/19/2019 documented as of this encounter (statuses as of 08/01/2022) [facility]* Problem Noted Date Resolved Date Leucocytosis 03/09/2013 04/06/2015 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/01/20102014 Depressive disorder, not elsewhere classified 11/19/2019 documented as of this encounter (statuses as of 08/28/2022) [facility]* Problem Noted Date Resolved Date Leucocytosis 03/09/2013 04/06/2015 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/01/20102014 Depressive disorder, not elsewhere classified 11/19/2019 documented as of this encounter (statuses as of 09/19/2022) [facility]* Problem Noted Date Resolved Date Leucocytosis 03/09/2013 04/06/2015 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/01/20102014 Depressive disorder, not elsewhere classified 11/19/2019 documented as of this encounter (statuses as of 09/23/2022) [facility]* Problem Noted Date Resolved Date Leucocytosis 03/09/2013 04/06/2015 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/01/20102014 Depressive disorder, not elsewhere classified 11/19/2019 documented as of this encounter (statuses as of 10/09/2022) [facility]* Problem Noted Date Resolved Date Leucocytosis 03/09/2013 04/06/2015 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/01/20102014 Depressive disorder, not elsewhere classified 11/19/2019 documented as of this encounter (statuses as of 12/06/2022) [facility]* Problem Noted Date Resolved Date Leucocytosis 03/09/2013 04/06/2015 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/01/20102014 Depressive disorder, not elsewhere classified 11/19/2019 documented as of this encounter (statuses as of 12/12/2022) [facility]* Problem Noted Date Resolved Date Leucocytosis 03/09/2013 04/06/2015 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/01/20102014 Depressive disorder, not elsewhere classified 11/19/2019 documented as of this encounter (statuses as of 01/13/2023) [facility]* Problem Noted Date Resolved Date Leucocytosis 03/09/2013 04/06/2015 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/01/20102014 Depressive disorder, not elsewhere classified 11/19/2019 documented as of this encounter (statuses as of 01/20/2023) [facility]* Problem Noted Date Resolved Date Leucocytosis 03/09/2013 04/06/2015 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/01/20102014 Depressive disorder, not elsewhere classified 11/19/2019 documented as of this encounter (statuses as of 02/28/2023) [facility]* Problem Noted Date Resolved Date Leucocytosis 03/09/2013 04/06/2015 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/01/20102014 Depressive disorder, not elsewhere classified 11/19/2019 documented as of this encounter (statuses as of 04/17/2023) [facility]* Problem Noted Date Diagnosed Date Resolved Date Leucocytosis 03/09/2013 04/06/2015 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/01/2010 Depressive disorder, not elsewhere classified 11/19/2019 documented as of this encounter (statuses as of 04/29/2023) [facility]* Problem Noted Date Diagnosed Date Resolved Date Leucocytosis 03/09/2013 04/06/2015 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/01/2010 Depressive disorder, not elsewhere classified 11/19/2019 documented as of this encounter (statuses as of 05/01/2023) [facility]* Problem Noted Date Diagnosed Date Resolved Date Leucocytosis 03/09/2013 04/06/2015 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/01/2010 Depressive disorder, not elsewhere classified 11/19/2019 documented as of this encounter (statuses as of 05/15/2023) [facility]* Problem Noted Date Diagnosed Date Resolved Date Leucocytosis 03/09/2013 04/06/2015 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/01/2010 Depressive disorder, not elsewhere classified 11/19/2019 documented as of this encounter (statuses as of 05/16/2023) [facility] Problem Noted Date Diagnosed Date Resolved Date Leucocytosis 03/09/2013 04/06/2015 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/01/2010 Depressive disorder, not elsewhere classified 11/19/2019 documented as of this encounter (statuses as of 06/05/2023) [facility] Problem Noted Date Diagnosed Date Resolved Date Leucocytosis 03/09/2013 04/06/2015 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/01/2010 Depressive disorder, not elsewhere classified 11/19/2019 documented as of this encounter (statuses as of 07/02/2023) [facility]* Problem Noted Date Diagnosed Date Resolved Date Leucocytosis 03/09/2013 04/06/2015 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/01/2010 Depressive disorder, not elsewhere classified 11/19/2019 documented as of this encounter (statuses as of 08/08/2023) [facility] Problem Noted Date Diagnosed Date Resolved Date Leucocytosis 03/09/2013 04/06/2015 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/01/2010 Depressive disorder, not elsewhere classified 11/19/2019 documented as of this encounter (statuses as of 08/13/2023) [facility] Problem Noted Date Diagnosed Date Resolved Date Leucocytosis 03/09/2013 04/06/2015 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/01/2010 Depressive disorder, not elsewhere classified 11/19/2019 documented as of this encounter (statuses as of 08/15/2023) [facility] Problem Noted Date Diagnosed Date Resolved Date Leucocytosis 03/09/2013 04/06/2015 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/01/2010 Depressive disorder, not elsewhere classified 11/19/2019 documented as of this encounter (statuses as of 08/26/2023) [facility] Problem Noted Date Diagnosed Date Resolved Date Leucocytosis 03/09/2013 04/06/2015 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/01/2010 Depressive disorder, not elsewhere classified 11/19/2019 documented as of this encounter (statuses as of 09/03/2023) [facility]* Problem Noted Date Diagnosed Date Resolved Date Leucocytosis 03/09/2013 04/06/2015 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/01/2010 Depressive disorder, not elsewhere classified 11/19/2019 documented as of this encounter (statuses as of 09/06/2023) [facility]* Problem Noted Date Diagnosed Date Resolved Date Leucocytosis 03/09/2013 04/06/2015 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/01/2010 Depressive disorder, not elsewhere classified 11/19/2019 documented as of this encounter (statuses as of 09/26/2023) [facility]* Problem Noted Date Diagnosed Date Resolved Date Leucocytosis 03/09/2013 04/06/2015 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/01/2010 Depressive disorder, not elsewhere classified 11/19/2019 documented as of this encounter (statuses as of 11/02/2023) [facility]* Problem Noted Date Diagnosed Date Resolved Date Leucocytosis 03/09/2013 04/06/2015 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/01/2010 Depressive disorder, not elsewhere classified 11/19/2019 documented as of this encounter (statuses as of 11/16/2023) [facility]* Problem Noted Date Diagnosed Date Resolved Date Leucocytosis 03/09/2013 04/06/2015 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/01/2010 Depressive disorder, not elsewhere classified 11/19/2019 documented as of this encounter (statuses as of 11/26/2023) [facility]* Problem Noted Date Diagnosed Date Resolved Date Leucocytosis 03/09/2013 04/06/2015 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/01/2010 Depressive disorder, not elsewhere classified 11/19/2019 documented as of this encounter (statuses as of 12/01/2023) [facility]* Problem Noted Date Diagnosed Date Resolved Date Leucocytosis 03/09/2013 04/06/2015 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/01/2010 Depressive disorder, not elsewhere classified 11/19/2019 documented as of this encounter (statuses as of 12/02/2023) [facility]* Problem Noted Date Diagnosed Date Resolved Date Leucocytosis 03/09/2013 04/06/2015 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/01/2010 Depressive disorder, not elsewhere classified 11/19/2019 documented as of this encounter (statuses as of 12/08/2023) [facility]* Problem Noted Date Diagnosed Date Resolved Date Leucocytosis 03/09/2013 04/06/2015 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/01/2010 Depressive disorder, not elsewhere classified 11/19/2019 documented as of this encounter (statuses as of 12/09/2023) [facility]* Problem Noted Date Diagnosed Date Resolved Date Leucocytosis 03/09/2013 04/06/2015 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/01/2010 Depressive disorder, not elsewhere classified 11/19/2019 documented as of this encounter (statuses as of 12/09/2023) [facility]* Problem Noted Date Diagnosed Date Resolved Date Leucocytosis 03/09/2013 04/06/2015 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/01/2010 Depressive disorder, not elsewhere classified 11/19/2019 documented as of this encounter (statuses as of 12/10/2023) [facility]* Problem Noted Date Diagnosed Date Resolved Date Leucocytosis 03/09/2013 04/06/2015 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/01/2010 Depressive disorder, not elsewhere classified 11/19/2019 documented as of this encounter (statuses as of 12/26/2023) [facility]* Problem Noted Date Diagnosed Date Resolved Date Leucocytosis 03/09/2013 04/06/2015 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/01/2010 Depressive disorder, not elsewhere classified 11/19/2019 documented as of this encounter (statuses as of 01/08/2024) [facility]* Problem Noted Date Diagnosed Date Resolved Date Leucocytosis 03/09/2013 04/06/2015 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/01/2010 Depressive disorder, not elsewhere classified 11/19/2019 documented as of this encounter (statuses as of 01/09/2024) [facility]* Problem Noted Date Diagnosed Date Resolved Date Leucocytosis 03/09/2013 04/06/2015 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/01/2010 Depressive disorder, not elsewhere classified 11/19/2019 documented as of this encounter (statuses as of 01/11/2024) [facility]* Problem Noted Date Diagnosed Date Resolved Date Leucocytosis 03/09/2013 04/06/2015 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/01/2010 Depressive disorder, not elsewhere classified 11/19/2019 documented as of this encounter (statuses as of 01/22/2024) [facility]* Problem Noted Date Diagnosed Date Resolved Date Leucocytosis 03/09/2013 04/06/2015 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/01/2010 Depressive disorder, not elsewhere classified 11/19/2019 documented as of this encounter (statuses as of 01/28/2024) [facility]* Problem Noted Date Diagnosed Date Resolved Date Leucocytosis 03/09/2013 04/06/2015 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/01/2010 Depressive disorder, not elsewhere classified 11/19/2019 documented as of this encounter (statuses as of 02/05/2024) [facility]* Problem Noted Date Diagnosed Date Resolved Date Leucocytosis 03/09/2013 04/06/2015 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 Deneen Garcia MD Status:REG E R Location: ED HPI History of Present Illness Chief Complaint: Upper Extremity Injury Narrative Narrative: 72-year-old female presents with injury to her right upper arm that she sustained from a fall approximately 3 hours ago. She states she was coming in from the outside through the front door and had a mechanical fall. She fell onto her right shoulder. While she had her head leaning against the wall, she denies hitting her head or loss of consciousness. She is right-hand dominant. She denies pain in the proximal portion of her right upper arm, and pain that isworse with movement. She denies other injury. She does not take a blood thinner. [facility] Medical History Cholecystectomy planned Vertigo Home Medications loratadine 10 mg DAILY 05/22/22 [History Last Taken Unknown] losartan 50 mg tablet 1 tab PO BID 05/22/22 [History Last Taken Unknown] meclizine 25 mg tablet 25 mg PO TID PRN dizziness #14 tabs 05/22/22 [Rx Last Taken Unknown] meloxicam 15 mg tablet 1 tab DAILY 05/22/22 [History Last Taken Unknown] omeprazole 40 mg capsule,delayed release 1 cap PO DAILY 05/22/22 [History Last Taken Unknown] estradiol 0.01% (0.1 mg/gram) vaginal cream 1 appful vaginal DAILY 10/28/23 [History Last Taken Unknown] oxycodone-acetaminophen 5 mg-325 mg tablet (Percocet) 1 tab PO Q6H PRN pain 3 days #12 tabs 10/28/23 [Rx Last Taken Unknown] Allergy/AdvReac Type Severity Reaction Status Date / Time adhesive tape Allergy Rash Verified 10/28/23 00:43 Surgical History History of hysterectomy Social History Smoking Status: Never smoker ROS ROS ED ROS Narrative Constitutional: No fever, no chills. HEENT: No sore throat. No neck pain. No loss of vision. No rhinorrhea. Cardiovascular: No chest pain. No palpitations. No pedal edema. Respiratory: No cough, no shortness of breath. Abdominal: No abdominal pain. No nausea. No vomiting. Genitourinary: No dysuria. No hematuria. Musculoskeletal: Right trapezial pain/myalgias. Shoulder pain/right upper arm pain, more proximal. Neurologic: No headaches. No dizziness. No lightheadedness. Skin: No rash. No change in color. Psychiatric: No depression. No anxiety. EXAM Physical Exam Narrative Exam Narrative: Afebrile. Vital signs noted. HEENT: Normocephalic. Atraumatic. PERRL, EOMI. Neck soft and supple. No pointtenderness or step off. Cardiovascular: Regular rate and rhythm. No murmurs, rubs, or gallops appreciated. Respiratory: No tachypnea. Lungs clear to auscultation bilaterally. Gastrointestinal: Abdomen soft, nontender, with normoactive bowel sounds. No rebound or guarding. Neurological: Awake. Alert. Nonfocal, nonlateralizing. Skin: No rash. Normal color. No pallor. Musculoskeletal: No pedal edema. No tenderness to palpation or crepitance rightclavicle. Mild tenderness right trapezius. Positive tenderness to palpation right proximal humerus, no palpable deficit. Range of motion of right shoulder limited secondary to pain. Able to oppose thumb and abduct and adduct fingers. Good capillary refill on fingers of right hand. Palpable radial pulse. Const Vital Signs: 10/28/23 00:39 Temperature 97.8 F Temperature Source Temporal Pulse Rate 84 Respiratory Rate 16 Blood Pressure 170/109 H Blood Pressure Mean 129 Pulse Ox 97 Oxygen Delivery Method Room Air MDM MDM MDM Narrative Medical decision making narrative: I do not CT imaging of the head or C-spine is indicated. I think she has more muscular pain on the trapezius. Concern is for right shoulder contusion versus fracture versus fracture dislocation. RN ordered protocol x-rays of the right shoulder and 2 views was obtained and interpreted by myself independently. There is a proximal humerus fracture and impacted humeral head fracture. I reviewed the radiology report which comments on probable impacted fracture of the humeral head/neck with extension through the greater tuberosity, consistent with my independent interpretation. She will be given 1 Percocet tablet here, placed in a sling and swath, continue ice and immobilization at home and follow-up with orthopedics. She was referred to Dr. Solis on-call. However, she didstate that she also sees a [facility] orthopedic surgeon with whom she canfollow-up with as well. She was written a prescription for 12 Percocet tablets to take for breakthrough pain. At this point in time, I feel she can be discharged [facility]. Return instructions to the emergency department were reviewed. Disposition is discharged home in stable condition. History & Record Review Discussion w/independent historian: Patient and Family () Radiography Diagnostic Testing: Clinical Impression(s) from Imaging Studies Shoulder X-Ray 10/28/23 01:00 IMPRESSION: Probable impacted fracture of the humeral head/neck, with extension through the greater tuberosity. Electronically Signed: Merrill Rinaldi MD at 1:53 EST , Discharge Plan Triage Chief Complaint: Upper Extremity Injury ED Provider: Antonio Cline Dx/Rx/DC Orders Clinical Impression: Fracture of proximal end of right humerus, Fall Instructions: ED Mechanical Fall, ED Fracture, Shoulder Prescriptions: New oxycodone-acetaminophen [Percocet] 5-325 mg tablet 1 tab PO Q6H PRN (Reason: pain) 3 Days Qty: 12 0RF No Action losartan 50 mg tablet 1 tab PO BID meloxicam 15 mg tablet 1 tab DAILY omeprazole 40 mg capsule,delayed release(DR/EC) 1 cap PO DAILY loratadine 10 mg DAILY meclizine 25 mg tablet 25 mg PO TID PRN (Reason: dizziness) Qty: 14 0RF estradiol 0.01 % (0.1 mg/gram) cream 1 appful VAGINAL DAILY Primary Care Provider: Deneen Garcia Referrals: Deneen Garcia MD [Primary Care Provider] - Ash Solis DO [Med Staff - Active Staff] - 1 Week Activity Restrictions/Additional Instructions: Wear your sling and swath until cleared by orthopedics. You may follow-up with your orthopedic surgeon at [facility] as well. Disposition Disposition: Home, Self Care What to do if you have Problems For any increased pain, shortness of breath, bleeding, nausea or vomiting, chestpain, or any unexpected problems, contact your Primary Care Provider. Call [facility] ([phone]) or report to the closest Emergency Room. Call 911 if necessary. 10/28/23 0249 <Electronically signed by Antonio Cline MD> Cosigner Signature (if applicable): CC: Dr. Deneen Garcia MD ~ Signed [facility] Work Phone: Evaluation note* Diagnosis Pelvic pain in female- Primary Unspecified symptom associated with female genital organs Vulvar atrophy Atrophy of vulva Vaginal atrophy Postmenopausal atrophic vaginitis Urge incontinence Epidermoid cyst Sebaceous cyst Cystocele, midline documented in this encounter [facility] note* Diagnosis Urinary urgency- Primary Urgency of urination Urge incontinence Vulvar atrophy Atrophy of vulva Breast cancer screening by mammogram [facility]* Diagnosis Pelvic pain in female Unspecified symptom associated with female genital organs documented [facility]* Diagnosis Vulvar atrophy Atrophy of vulva Vaginal atrophy Postmenopausal atrophic vaginitis documented [facility]* Diagnosis Essential hypertension- Primary Unspecified essential hypertension Headache, unspecified headache type documented [facility]* Diagnosis Essential hypertension- Primary Unspecified essential hypertension Insomnia, unspecified type BMI 40.0-44.9, adult (HCC) Body Mass Index 40.0-44.9, adult documented [facility]* Diagnosis Insomnia, unspecified type documented in this encounter [facility]* Diagnosis Medicare annual wellness visit, subsequent- Primary Routine general medical examination at a health care facility documented [facility]* Diagnosis Insomnia, unspecified type documented [facility] this [facility]* Diagnosis Insomnia, unspecified type documented in this [facility]* Diagnosis Diplopia- Primary Combined forms of age-related cataract of both eyes Other and combined forms of senile cataract Myopia of both eyes Myopia Presbyopia Regular astigmatism of both eyes Regular astigmatism documented [facility]* Diagnosis Essential hypertension- Primary Unspecified essential hypertension Annual physical exam Routine general medical examination at a health care facility Osteopenia, unspecified location Vitamin D deficiency Unspecified vitamin D deficiency Lipid screening Screening for lipoid disorders documented in this encounter [facility] note* Diagnosis Vulvar atrophy Atrophy of vulva Vaginal atrophy Postmenopausal atrophic vaginitis documented in this [facility]* Diagnosis Uncontrolled hypertension- Primary Unspecified essential hypertension Age-related osteoporosis without current pathological fracture Senile osteoporosis Depression screening Screening for depression BMI 40.0-44.9, adult (HCC) Body Mass Index 40.0-44.9, adult Hypertriglyceridemia Pure hyperglyceridemia documented in this encounter [facility] note* Diagnosis Encounter for screening mammogram for breast cancer documented [facility]* Diagnosis Lichen planus [facility] Diagnosis COVID- Primary Essential hypertension Unspecified essential hypertension Hypertriglyceridemia Pure hyperglyceridemia documented [facility]* Diagnosis Essential hypertension- Primary Unspecified essential hypertension Hypertriglyceridemia Pure hyperglyceridemia Chronic pain of both knees Balance problem Other symptoms involving nervous and musculoskeletal systems Chronic diarrhea Diarrhea [facility]* Diagnosis Bilateral chronic knee pain- Primary Pain in joint, lower leg Balance problem Other symptoms involving nervous and musculoskeletal systems [facility]* Diagnosis Bilateral chronic knee pain- Primary Pain in joint, lower leg Balance problem Other symptoms involving nervous and musculoskeletal systems documented [facility]* Diagnosis Bilateral chronic knee pain- Primary Pain in joint, lower leg Balance problem Other symptoms involving nervous and musculoskeletal systems [facility]* Diagnosis Bilateral chronic knee pain- Primary Pain in joint, lower leg Balance problem Other symptoms involving nervous and musculoskeletal systems documented [facility]* Diagnosis Bilateral chronic knee pain- Primary Pain in joint, lower leg Balance problem Other symptoms involving nervous and musculoskeletal systems [facility]* Diagnosis Bilateral chronic knee pain- Primary Pain in joint, lower leg Balance problem Other symptoms involving nervous and musculoskeletal systems documented [facility] this [facility]* Diagnosis Essential hypertension- Primary Unspecified essential hypertension Hypertriglyceridemia Pure hyperglyceridemia documented in this encounter [facility] noteNo assessment information availableWCleveland [facility] Work Phone: Evaluation note* Diagnosis Pain in joint of right shoulder- Primary Pain in joint, shoulder region [facility]* Diagnosis Encounter for gynecological examination (general) (routine) without abnormal findings- Primary Almost entirely fatty tissue of both breasts on mammography Breast cancer screening by mammogram BMI 40.0-44.9, adult (HCC) Body Mass Index 40.0-44.9, adult [facility] Diagnosis Age-related osteoporosis without current pathological fracture- Primary Senile osteoporosis [facility]* Diagnosis Fracture of humeral head, right, closed, initial encounter Closed fracture of head of right humerus with routine healing [facility]* Diagnosis Closed fracture of head of right humerus with routine healing- Primary [facility]* Diagnosis Closed fracture of head of right humerus with routine healing- Primary [facility]* Diagnosis Closed fracture of head of right humerus with routine healing- Primary [facility]* Diagnosis Closed fracture of head of right humerus with routine healing- Primary [facility]* Diagnosis Closed fracture of head of right humerus with routine healing- Primary [facility]* Diagnosis Insomnia, unspecified type [facility]* Diagnosis Closed fracture of head of right humerus with routine healing- Primary [facility]* Diagnosis Closed fracture of head of right humerus with routine healing- Primary [facility]* Diagnosis Sore throat- Primary Acute pharyngitis Enlarged lymph node in neck Fatigue, unspecified type [facility]* Diagnosis Other fatigue- Primary Enlarged lymph node in neck Sore throat Acute pharyngitis Acute non-recurrent sinusitis, unspecified location [facility]* Diagnosis Leukocytosis, unspecified type- Primary Enlarged lymph node in neck Other fatigue [facility]* Diagnosis Cellulitis, unspecified cellulitis site- Primary Leukocytosis, unspecified type Enlarged lymph node in neck Dependent edema Edema Essential hypertension Unspecified essential hypertension Skin exam, screening for cancer Screening for malignant neoplasm of the skin Bleeding hemorrhoid Unspecified hemorrhoids with other complication [facility]* Diagnosis Diplopia- Primary Combined forms of age-related cataract of both eyes Other and combined forms of senile cataract Myopia of both eyes Myopia Presbyopia [facility] Diagnosis Leukocytosis, unspecified type- Primary Enlarged lymph node in neck Malaise and fatigue Other malaise and fatigue Vitamin D deficiency Unspecified vitamin D deficiency Encounter for therapeutic drug monitoring documented in this encounter [facility] note* Diagnosis Medicare annual wellness visit, subsequent- Primary Routine general medical examination at a health care facility Essential hypertension Unspecified essential hypertension Iron deficiency anemia secondary to inadequate dietary iron intake Memory change Memory loss Fatigue, unspecified type Elevated vitamin B12 level documented in this encounter [facility]* Diagnosis Memory change- Primary Memory loss [facility]* Diagnosis Enlarged lymph node in neck documented [facility] this [facility]* Diagnosis MCI (mild cognitive impairment)- Primary Mild cognitive impairment, so stated Class 2 severe obesity with serious comorbidity and body mass index (BMI) of 39.0 to 39.9 in adult, unspecified obesity type (HCC) documented in this encounter [facility]* Diagnosis Diplopia- Primary Combined forms of age-related cataract of both eyes Other and combined forms of senile cataract Myopia of both eyes Myopia Presbyopia Regular astigmatism of both eyes Regular astigmatism documented in this encounter [facility] note* Diagnosis Pre-operative examination- Primary Preoperative examination, unspecified Tubular adenoma of colon Benign neoplasm of colon Essential hypertension Unspecified essential hypertension Gastroesophageal reflux disease without esophagitis Esophageal reflux Iron deficiency anemia secondary to inadequate dietary iron intake Pain in joint of right shoulder Pain in joint, shoulder region BMI 40.0-44.9, adult (HCC) Body Mass Index 40.0-44.9, adult Seborrheic keratosis- Primary Other seborrheic keratosis Cormier angioma Nevus, non-neoplastic Multiple benign nevi Benign neoplasm of skin, site unspecified Lentigines Other dyschromia Milia Sebaceous cyst Skin cancer screening Screening for malignant neoplasm of the skin documented [facility]* Diagnosis Pre-operative examination- Primary Preoperative examination, unspecified Tubular adenoma of colon Benign neoplasm of colon Essential hypertension Unspecified essential hypertension Gastroesophageal reflux disease without esophagitis Esophageal reflux Iron deficiency anemia secondary to inadequate dietary iron intake Pain in joint of right shoulder Pain in joint, shoulder region BMI 40.0-44.9, adult (HCC) Body Mass Index 40.0-44.9, adult Chronic pain of both knees Balance problem Other symptoms involving nervous and musculoskeletal systems [facility]* Diagnosis Pre-operative examination- Primary Preoperative examination, unspecified Tubular adenoma of colon Benign neoplasm of colon Essential hypertension Unspecified essential hypertension Gastroesophageal reflux disease without esophagitis Esophageal reflux Iron deficiency anemia secondary to inadequate dietary iron intake Pain in joint of right shoulder Pain in joint, shoulder region BMI 40.0-44.9, adult ([facility]) Body Mass Index 40.0-44.9, adult Vulvar atrophy Atrophy of vulva Vaginal atrophy Postmenopausal atrophic vaginitis documented in this encounter [facility] note* Diagnosis Pre-operative examination- Primary Preoperative examination, unspecified Tubular adenoma of colon Benign neoplasm of colon Essential hypertension Unspecified essential hypertension Gastroesophageal reflux disease without esophagitis Esophageal reflux Iron deficiency anemia secondary to inadequate dietary iron intake Pain in joint of right shoulder Pain in joint, shoulder region BMI 40.0-44.9, adult ([facility]) Body Mass Index 40.0-44.9, adult Vitamin B12 deficiency- Primary Other B-complex deficiencies Vitamin D deficiency Unspecified vitamin D deficiency Diabetes mellitus screening Screening for diabetes mellitus Hyperlipidemia, mixed Mixed hyperlipidemia documented in this encounter [facility] note* Diagnosis Pre-operative examination- Primary Preoperative examination, unspecified Tubular adenoma of colon Benign neoplasm of colon Essential hypertension Unspecified essential hypertension Gastroesophageal reflux disease without esophagitis Esophageal reflux Iron deficiency anemia secondary to inadequate dietary iron intake Pain in joint of right shoulder Pain in joint, shoulder region BMI 40.0-44.9, adult ([facility]) Body Mass Index 40.0-44.9, adult Encounter for screening mammogram for breast cancer documented in this encounter [facility] note* Diagnosis Pre-operative examination- Primary Preoperative examination, unspecified Tubular adenoma of colon Benign neoplasm of colon Essential hypertension Unspecified essential hypertension Gastroesophageal reflux disease without esophagitis Esophageal reflux Iron deficiency anemia secondary to inadequate dietary iron intake Pain in joint of right shoulder Pain in joint, shoulder region BMI 40.0-44.9, adult ([facility]) Body Mass Index 40.0-44.9, adult Essential hypertension- Primary Unspecified essential hypertension Screening for depression Encounter for screening examination for other mental health and behavioral disorders Insomnia, unspecified type Hypertriglyceridemia Pure hyperglyceridemia Rash of neck Rash and other nonspecific skin eruption documented in this encounter [facility] note* Diagnosis Pre-operative examination- Primary Preoperative examination, unspecified Tubular adenoma of colon Benign neoplasm of colon Essential hypertension Unspecified essential hypertension Gastroesophageal reflux disease without esophagitis Esophageal reflux Iron deficiency anemia secondary to inadequate dietary iron intake Pain in joint of right shoulder Pain in joint, shoulder region BMI 40.0-44.9, adult ([facility]) Body Mass Index 40.0-44.9, adult Encounter for screening mammogram for breast cancer documented in this encounter [facility] note* Diagnosis Pre-operative examination- Primary Preoperative examination, unspecified Tubular adenoma of colon Benign neoplasm of colon Essential hypertension Unspecified essential hypertension Gastroesophageal reflux disease without esophagitis Esophageal reflux Iron deficiency anemia secondary to inadequate dietary iron intake Pain in joint of right shoulder Pain in joint, shoulder region BMI 40.0-44.9, adult ([facility]) Body Mass Index 40.0-44.9, adult Insomnia, unspecified type documented in this encounter [facility] note* Diagnosis Pre-operative examination- Primary Preoperative examination, unspecified Tubular adenoma of colon Benign neoplasm of colon Essential hypertension Unspecified essential hypertension Gastroesophageal reflux disease without esophagitis Esophageal reflux Iron deficiency anemia secondary to inadequate dietary iron intake Pain in joint of right shoulder Pain in joint, shoulder region BMI 40.0-44.9, adult ([facility]) Body Mass Index 40.0-44.9, adult Hiatal hernia- Primary Diaphragmatic hernia without mention of obstruction or gangrene Gastroesophageal reflux disease without esophagitis Esophageal reflux Schatzki's ring Congenital tracheoesophageal fistula, esophageal atresia and stenosis Essential hypertension Unspecified essential hypertension Morbid obesity ([facility]) Morbid obesity Tinea corporis Dermatophytosis of the body documented in this encounter [facility] note* Diagnosis Pre-operative examination- Primary Preoperative examination, unspecified Tubular adenoma of colon Benign neoplasm of colon Essential hypertension Unspecified essential hypertension Gastroesophageal reflux disease without esophagitis Esophageal reflux Iron deficiency anemia secondary to inadequate dietary iron intake Pain in joint of right shoulder Pain in joint, shoulder region BMI 40.0-44.9, adult ([facility]) Body Mass Index 40.0-44.9, adult Vulvar atrophy Atrophy of vulva Vaginal atrophy Postmenopausal atrophic vaginitis documented in this encounter [facility] note* Diagnosis Pre-operative examination- Primary Preoperative examination, unspecified Tubular adenoma of colon Benign neoplasm of colon Essential hypertension Unspecified essential hypertension Gastroesophageal reflux disease without esophagitis Esophageal reflux Iron deficiency anemia secondary to inadequate dietary iron intake Pain in joint of right shoulder Pain in joint, shoulder region BMI 40.0-44.9, adult ([facility]) Body Mass Index 40.0-44.9, adult Acute pain of left knee- Primary documented [facility]* Diagnosis Pre-operative examination- Primary Preoperative examination, unspecified Tubular adenoma of colon Benign neoplasm of colon Essential hypertension Unspecified essential hypertension Gastroesophageal reflux disease without esophagitis Esophageal reflux Iron deficiency anemia secondary to inadequate dietary iron intake Pain in joint of right shoulder Pain in joint, shoulder region BMI 40.0-44.9, adult ([facility]) Body Mass Index 40.0-44.9, adult Acute pain of left knee documented in this [facility]* Diagnosis Pre-operative examination- Primary Preoperative examination, unspecified Tubular adenoma of colon Benign neoplasm of colon Essential hypertension Unspecified essential hypertension Gastroesophageal reflux disease without esophagitis Esophageal reflux Iron deficiency anemia secondary to inadequate dietary iron intake Pain in joint of right shoulder Pain in joint, shoulder region BMI 40.0-44.9, adult ([facility]) Body Mass Index 40.0-44.9, adult Gastroesophageal reflux disease without esophagitis- Primary Esophageal reflux Schatzki's ring Congenital tracheoesophageal fistula, esophageal atresia and stenosis Hiatal hernia Diaphragmatic hernia without mention of obstruction or gangrene documented [facility]* Diagnosis Pre-operative examination- Primary Preoperative examination, unspecified Tubular adenoma of colon Benign neoplasm of colon Essential hypertension Unspecified essential hypertension Gastroesophageal reflux disease without esophagitis Esophageal reflux Iron deficiency anemia secondary to inadequate dietary iron intake Pain in joint of right shoulder Pain in joint, shoulder region BMI 40.0-44.9, adult ([facility]) Body Mass Index 40.0-44.9, adult Diplopia- Primary Combined forms of age-related cataract of both eyes Other and combined forms of senile cataract Myopia of both eyes Myopia Presbyopia Regular astigmatism of both eyes Regular astigmatism documented [facility]* Diagnosis Pre-operative examination- Primary Preoperative examination, unspecified Tubular adenoma of colon Benign neoplasm of colon Essential hypertension Unspecified essential hypertension Gastroesophageal reflux disease without esophagitis Esophageal reflux Iron deficiency anemia secondary to inadequate dietary iron intake Pain in joint of right shoulder Pain in joint, shoulder region BMI 40.0-44.9, adult ([facility]) Body Mass Index 40.0-44.9, adult Chronic pain of left knee- Primary Pain in joint, lower leg [facility] Diagnosis Pre-operative examination- Primary Preoperative examination, unspecified Tubular adenoma of colon Benign neoplasm of colon Essential hypertension Unspecified essential hypertension Gastroesophageal reflux disease without esophagitis Esophageal reflux Iron deficiency anemia secondary to inadequate dietary iron intake Pain in joint of right shoulder Pain in joint, shoulder region BMI 40.0-44.9, adult (HCC) Body Mass Index 40.0-44.9, adult Essential hypertension- Primary Unspecified essential hypertension Primary osteoarthritis of left knee Primary localized osteoarthrosis, lower leg Morbid obesity (HCC) Morbid obesity documented in this encounter [facility] Discharge instructions Additional Instructions Wear your sling and swath until cleared by orthopedics. You may follow-up with your orthopedic surgeon at [facility] as well.[facility] Work Phone: Reason for referral (narrative)* Diagnostic Procedure Only (Routine) - Open Specialty Diagnoses / Procedures Referred By Contac t Referred To Contact [facility] Diagnoses Pelvic pain in female Procedures US FEMALE PELVIS TRANSVAG US TRANSVAGINAL Mira Joseph MD [address] [place] [address] [facility] Referral ID Status Reason Start Date Expiration Date V isits Requested Visits Authorized [id number] Open Auto-Generate d Referral 01/21/2022 02/20/2023 1 1 * Diagnostic Procedure Only (Routine) - Pending Review Specialty Diagnoses / Procedures Referred By Contac t Referred To Contact [facility] Diagnoses Pelvic pain in female Procedures PELVIC US WHI US PELVIC NONOBSTETRIC REAL-TIME IMAGE COMPLETE Mira Joseph MD [address] [place] [address] [facility] [address] [place] [address] Referral ID Status Reason Start Date Expiration Date Visits Requested Visits Authorized [id number] Pending Review Auto-Generat ed Referral 01/21/2022 01/21/2023 1 1 [facility] for referral (narrative)* Diagnostic Procedure Only (Routine) - Authorized Specialty Diagnoses / Procedures Referred By Contac t Referred To Contact BR IMAGING Diagnoses Breast cancer screening by mammogram Procedures BHARGAVI SCREENING SCREENING MAMMOGRAPHY BI 2-VIEW BREAST INC Mira Ivan MD [address] [place] [address] [facility] [address] [place] [address] Referral ID Status Reason Start Date Expiration Date Visits Requested Visits Authorized [id number] Authorized Auto-Generat ed Referral 02/22/2022 10/19/2022 1 1 [facility] for referral (narrative)* Diagnostic Procedure Only (Routine) - Closed Specialty Diagnoses / Procedures Referred By Peg vance Referred To Contact US IMAGING Diagnoses Pelvic pain in female Procedures US FEMALE PELVIS TRANSVAG US TRANSVAGINAL Mira Joseph MD [address] [place] [address] Us Imaging Referral ID Status Reason Start Date Expiration Date V isits Requested Visits Authorized [id number] Closed Auto-Generate d Referral 01/21/2022 02/20/2023 1 1 T [facility] for referral (narrative)* Diagnostic Procedure Only (Routine) - Pending Review Specialty Diagnoses / Procedures Referred By Peg vance Referred To Contact BR IMAGING Diagnoses Encounter for screening mammogram for breast cancer Procedures BHARGAVI SCREENING SCREENING MAMMOGRAPHY BI 2-VIEW BREAST INC Deneen Canela MD [address] [place] [address] [facility] [address] [place] [address] Referral ID Status Reason Start Date Expiration Date Visits Requested Visits Authorized [id number] Pending Review Auto-Generat ed Referral 01/15/2023 02/14/2024 1 1 T [facility] for referral (narrative)* Diagnostic Procedure Only (Routine) - Pending Review Specialty Diagnoses / Procedures Referred By Peg t Referred To Contact XR IMAGING Diagnoses Pain in joint of right shoulder Procedures XR SHOULDER GENERAL 3V OR MORE AP/TRUE AP/OTHER RIGHT RADEX SHOULDER COMPLETE MINIMUM 2 VIEWS Usama Vergara APRN.CNP [address] [place] [address] [place] [address] Referral ID Status Reason Start Date Expiration Date Visits Requested Visits Authorized [id number] Pending Review Auto-Generat ed Referral 11/02/2023 12/01/2024 1 1 [facility] for referral (narrative)* Diagnostic Procedure Only (Routine) - Pending Review Specialty Diagnoses / Procedures Referred By Peg vance Referred To Contact BR IMAGING Diagnoses Almost entirely fatty tissue of both breasts on mammography Breast cancer screening by mammogram Procedures BHARGAVI SCREENING W SHELLY SCREENING DIGITAL BREAST TOMOSYNTHESIS BI SCREENING MAMMOGRAPHY BI 2-VIEW BREAST INC CAD Mira Joseph MD [address] [place] [address] [facility] [address] [place] [address] Referral ID Status Reason Start Date Expiration Date Visits Requested Visits Authorized [id number] Pending Review Auto-Generat ed Referral 12/01/2023 12/30/2024 1 1 [facility] for referral (narrative)* Diagnostic Procedure Only (Routine) - Authorized Specialty Diagnoses / Procedures Referred By Peg vance Referred To Contact US IMAGING Diagnoses Enlarged lymph node in neck Procedures US HEAD/NECK SOFT TISSUE OTHER US SOFT TISSUE HEAD & NECK REAL TIME IMGE Sugey Mccall APRN.POINT OF CARE TECHNICIAN [address] [place] [address] [place] [address] Referral ID Status Reason Start Date Expiration Date Visits Requested Visits Authorized [id number] Authorized Auto-Generat ed Referral 04/14/2024 04/30/2025 1 1 [facility] for referral (narrative)* Diagnostic Procedure Only (Routine) - Closed Specialty Diagnoses / Procedures Referred By Contac t Referred To Contact US IMAGING Diagnoses Enlarged lymph node in neck Procedures US HEAD/NECK SOFT TISSUE OTHER US SOFT TISSUE HEAD & NECK REAL TIME IMGE Sugey Mccall APRN.POINT OF CARE TECHNICIAN [address] [place] [address] [place] [address] Referral ID Status Reason Start Date Expiration Date V isits Requested Visits Authorized [id number] Closed Auto-Generate d Referral 04/14/2024 04/30/2025 1 1 [facility] for referral (narrative)* Diagnostic Procedure Only (Routine) - Closed Specialty Diagnoses / Procedures Referred By Contac t Referred To Contact XR IMAGING Diagnoses Chronic pain of both knees Balance problem Procedures XR KNEE GENERAL 4V AP BOTH/PA BOTH/LAT/MERC BILATERAL RADIOLOGIC EXAM KNEE COMPLETE 4/MORE VIEWS Josselin Stevens APRN.POINT OF CARE TECHNICIAN [address] [place] [address] [place] [address] Referral ID Status Reason Start Date Expiration Date V isits Requested Visits Authorized [id number] Closed Auto-Generate d Referral 06/26/2023 07/25/2024 1 1 [facility] for referral (narrative)No reason for referral [facility] Narrative* Diagnostic Procedure Only (Routine) - Closed Specialty Diagnoses / Procedures Referred By Contac t Referred To Contact US IMAGING Diagnoses Pelvic pain in female Procedures US FEMALE PELVIS TRANSVAG US TRANSVAGINAL Mira Joseph MD [address] [facility] [place] [address] Us Imaging Referral ID Status Reason Start Date Expiration Date V isits Requested Visits Authorized [id number] Closed Auto-Generate d Referral 01/21/2022 02/20/2023 1 1 [facility] for visit Narrative* Diagnostic Procedure Only (Routine) - Closed Specialty Diagnoses / Procedures Referred By Contac t Referred To Contact XR IMAGING Diagnoses Pain Procedures XR SHOULDER GENERAL 3V OR MORE AP/TRUE AP/OTHER RIGHT RADEX SHOULDER COMPLETE MINIMUM 2 VIEWS Torin Maza MD [address] [place] [address] [place] [address] Referral ID Status Reason Start Date Expiration Date V isits Requested Visits Authorized [id number] Closed Auto-Generate d Referral 11/07/2023 12/06/2024 1 1 [facility] for visit Narrative* Diagnostic Procedure Only (Routine) - Closed Specialty Diagnoses / Procedures Referred By Contac t Referred To Contact XR IMAGING Diagnoses Chronic pain of both knees Balance problem Procedures XR KNEE GENERAL 4V AP BOTH/PA BOTH/LAT/MERC BILATERAL RADIOLOGIC EXAM KNEE COMPLETE 4/MORE VIEWS Josselin Stevens APRN.POINT OF CARE TECHNICIAN [address] [place] [address] [place] [address] Referral ID Status Reason Start Date Expiration Date V isits Requested Visits Authorized [id number] Closed Auto-Generate d Referral 06/26/2023 07/25/2024 1 1 [facility] for visit Narrative* Diagnostic Procedure Only (Routine) - Closed Specialty Diagnoses / Procedures Referred By Contac t Referred To Contact BR IMAGING Diagnoses Encounter for screening mammogram for breast cancer Procedures BHARGAVI SCREENING W SHELLY SCREENING DIGITAL BREAST TOMOSYNTHESIS BI SCREENING MAMMOGRAPHY BI 2-VIEW BREAST INC Deneen Canela MD [address] [place] [address] [facility] [address] [place] [address] Referral ID Status Reason Start Date Expiration Date V isits Requested Visits Authorized [id number] Closed Auto-Generate d Referral 11/02/2024 12/02/2025 1 1 [facility] for visit Narrative* Diagnostic Procedure Only (Routine) - Closed Specialty Diagnoses / Procedures Referred By Contac t Referred To Contact XR IMAGING Diagnoses Acute pain of left knee Procedures XR KNEE GENERAL 4V AP BOTH/PA BOTH/LAT/MERC LEFT RADIOLOGIC EXAM KNEE COMPLETE 4/MORE VIEWS Josselin Stevens APRN.POINT OF CARE TECHNICIAN [address] [facility] [place] [address] Phone: tel: fax: [place] [address] Referral ID Status Reason Start Date Expiration Date V isits Requested Visits Authorized [id number] Closed Auto-Generate d Referral 05/06/2025 06/05/2026 1 1 [facility] Summary Purpose Family History No Family History Records FoundNo Family History Records FoundNo Family History Records Found Advance Directives No Advanced Directives Records FoundDocuments on File Type Date Recorded Patient Last Trimmer Expl anation Advance Directive(s) 02/16/2019 6:51 AM Advance Directive(s) 03/30/2013 7:47 AM Documents on File Type Date Recorded Patient Last Trimmer Expl anation Advance Directive(s) 02/16/2019 6:51 AM Advance Directive(s) 03/30/2013 7:47 AM Documents on File Type Date Recorded Patient Last Trimmer Expl anation Advance Directive(s) 03/22/2022 10:42 AM Advance Directive(s) 02/16/2019 6:51 AM Advance Directive(s) 03/30/2013 7:47 AM Documents on File Type Date Recorded Patient Last Trimmer Expl anation Advance Directive(s) 03/22/2022 10:42 AM Advance Directive(s) 03/30/2013 7:47 AM Documents on File Type Date Recorded Patient Last Trimmer Expl anation Advance Directive(s) 03/22/2022 10:42 AM Advance Directive(s) 03/30/2013 7:47 AM Advance Directive Response Recorded Date/ Time Living Will Yes October 28 12:45am Power of Superintendent Mechanical Yes October 28 12:45am Name of Medical Power of Superintendent Mechanical KAROLINA GARBER October 28, 2023 12:45am Procedure Findings Note HNO ID: [id number] Author: Arjun Kingsley Service: ? Author Type: Physician Type: Brief Op Note Filed: 02/16/2019 8:35 AM Note Text: BRIEF OPERATIVE / PROCEDURE NOTE LOG ID: [id number] SURGERY/PROCEDURE DATE: 02/16/2019 INCISION/PROCEDURE START TIME: 7:50 AM INCISION CLOSE/PROCEDURE END TIME: SURGEON(S)/PROCEDURALIST(S) AND BUTTON SPINDLER(S): Surgeon(s) and Role: * Minh Kingsley - Primary No Additional Staff SURGERY/PROCEDURE(S): colonoscopy w polypectomy ANESTHESIA: Monitored Anesthesia Care FINDINGS: polyps/div/int and ext hemorrhoids ESTIMATED BLOOD LOSS: 0 ml SPECIMENS: polyps COMPLICATIONS: None PRE-OP/PRE-PROCEDURE DIAGNOSIS: h/o polyps POST-OP/POST-PROCEDURE DIAGNOSIS: Colon Polyps; Diverticulosis; Tortuous Colon; Suboptimal Prep SIGNATURE: Minh Kingsley MD PATIENT NAME: Jessica Worrell DATE: February 16, 2019 TIME: 8:32 AM PAGER/CONTACT #: [phone] Reason for Referral Specialty Diagnoses / Procedures Referred By Contac t Referred To Contact Diagnoses Insomnia, unspecified type Josselin Stevens APRN.POINT OF CARE TECHNICIAN [address] [place] [address] Referral ID Status Reason Start Date Expiration Date Visits Re quested Visits Authorized [id number] Closed 1 1 Specialty Diagnoses / Procedures Referred By Contac t Referred To Contact [facility] Diagnoses Chronic pain of both knees Balance problem Procedures CONSULT TO PHYSICAL THERAPY PHYSICAL THERAPY EVALUATION HIGH COMPLEX 45 MINS Josselin Stevens APRN.POINT OF CARE TECHNICIAN [address] [place] [address] [facility] [address] [place] [address] Referral ID Status Reason Start Date Expiration Date Visits Requested Visits Authorized [id number] Pending Review Auto-Generat ed Referral 06/26/2023 06/25/2024 1 1 Specialty Diagnoses / Procedures Referred By Contac t Referred To Contact XR IMAGING Diagnoses Chronic pain of both knees Balance problem Procedures XR KNEE GENERAL 4V AP BOTH/PA BOTH/LAT/MERC BILATERAL RADIOLOGIC EXAM KNEE COMPLETE 4/MORE VIEWS Josselin Stevens APRN.POINT OF CARE TECHNICIAN [address] [place] [address] [place] [address] Referral ID Status Reason Start Date Expiration Date V isits Requested Visits Authorized [id number] Closed Auto-Generate d Referral 06/26/2023 07/25/2024 1 1 Specialty Diagnoses / Procedures Referred By Contac t Referred To Contact Diagnoses Skin exam, screening for cancer Procedures CONSULT TO DERMATOLOGY Josselin Stevens APRN.POINT OF CARE TECHNICIAN [address] [place] [address] Referral ID Status Reason Start Date Expiration Date V isits Requested Visits Authorized [id number] Closed PCP Requested Referral 04/08/2024 04/08/2025 1 1 Specialty Diagnoses / Procedures Referred By Peg vance Referred To Contact Gerontology Diagnoses Memory change Procedures CONSULT TO GERIATRICS OFFICE/OUTPATIENT NEW HIGH MDM 60 MINUTES Older, VIVI Schwab.POINT OF CARE TECHNICIAN [address] [place] [address] Referral ID Status Reason Start Date Expiration Date Visits Requested Visits Authorized [id number] Authorized PCP Requested Referral 05/06/2024 05/04/2025 1 1 Medications Administered Section Active Administered Medications - up to 3 most recent administrations Medication Order MAR Action Action Date Dose Rate Site PHENYLephrine 2.5 % 1 Drop (AK-DILATE, JACE-SYNEPHRINE) 1 Drop, BOTH EYES, DIRECTED, Starting on Aimee 08/01/22 at 1030, Until Aimee 08/01/22 at 2229, Administer for dilation PROTECT FROM LIGHT Given 08/01/2022 10:30 AM EDT 1 Drop proparacaine 0.5 % 1 Drop (ALCAINE) 1 Drop, BOTH EYES, DIRECTED, Starting on Aimee 08/01/22 at 1030, Until Aimee 08/01/22 at 2229, Administer for pneumo tonometry, tonopen [...] Given 08/01/2022 10:30 AM EDT 1 Drop Chief Complaint and Reason for Visit Chief Complaint SHOULDER PAIN Chief Complaint Admit Date KNEE RX HERE June 28, 2025 12:59pm PRE COLONOSCOPY HX OF GERD DYSPHAGIA HPY [facility]ERRA June 30, 2025 1:56pm Chief Complaint Admit Date PRE COLONOSCOPY HX OF GERD DYSPHAGIA HPY [facility] June 30, 2025 1:56pm KNEE RX HERE July 08, 2025 1:30pm Reason for Visit Admit Date [facility] Irritable bowel syndrome with diarrhea S [facility] 2024 1:56pm Personal history of adenomatous and serr ated colon polyps June 30, 2025 1:56pm Additional Source Comments INFORMATION SOURCE (unrecogn ized section and content) DATE CREATED AUTHOR 02/24/2019 [facility] DATE CREATED AUTHOR AUTHOR'S ORGANIZ ATION 07/03/2025 [facility] DATE CREATED AUTHOR AUTHOR'S ORGANIZ ATION 07/23/2025 [facility] Source Comments (unrecognize d section and content) In the event this informatio n is protected by the Federal Confidentiality of Alcohol and Drug Abuse Patient Records regulations: The Federal rules restrict any use of the information to criminally investigate or prosecute any alcohol or drug abuse patient.[facility] the event this information is protected by the Federal Confidentiality of Alcohol and Drug Abuse Patient Records regulations: The Federal rules restrict any use of the information to criminally investigate or prosecute any alcohol or drug abuse patient.[facility] SystemIn the event this information is protected by the Federal Confidentiality of Alcohol and Drug Abuse Patient Records regulations: The Federal rules restrict any use of the information to criminally investigate or prosecute any alcohol or drug abuse patient.[facility] SystemIn the event this information is protected by the Federal Confidentiality of Alcohol and Drug Abuse Patient Records regulations: The Federal rules restrict any use of the information to criminally investigate or prosecute any alcohol or drug abuse patient.[facility] SystemIn the event this information is protected by the Federal Confidentiality of Alcohol and Drug Abuse Patient Records regulations: The Federal rules restrict any use of the information to criminally investigate or prosecute any alcohol or drug abuse patient.[facility] SystemIn the event this information is protected by the Federal Confidentiality of Alcohol and Drug Abuse Patient Records regulations: The Federal rules restrict any use of the information to criminally investigate or prosecute any alcohol or drug abuse patient.[facility] SystemIn the event this information is protected by the Federal Confidentiality of Alcohol and Drug Abuse Patient Records regulations: The Federal rules restrict any use of the information to criminally investigate or prosecute any alcohol or drug abuse patient.[facility] the event this information is protected by the Federal Confidentiality of Alcohol and Drug Abuse Patient Records regulations: The Federal rules restrict any use of the information to criminally investigate or prosecute any alcohol or drug abuse patient.[facility] SystemIn the event this information is protected by the Federal Confidentiality of Alcohol and Drug Abuse Patient Records regulations: The Federal rules restrict any use of the information to criminally investigate or prosecute any alcohol or drug abuse patient.[facility] SystemIn the event this information is protected by the Federal Confidentiality of Alcohol and Drug Abuse Patient Records regulations: The Federal rules restrict any use of the information to criminally investigate or prosecute any alcohol or drug abuse patient.[facility] SystemIn the event this information is protected by the Federal Confidentiality of Alcohol and Drug Abuse Patient Records regulations: The Federal rules restrict any use of the information to criminally investigate or prosecute any alcohol or drug abuse patient.[facility] SystemIn the event this information is protected by the Federal Confidentiality of Alcohol and Drug Abuse Patient Records regulations: The Federal rules restrict any use of the information to criminally investigate or prosecute any alcohol or drug abuse patient.[facility] SystemIn the event this information is protected by the Federal Confidentiality of Alcohol and Drug Abuse Patient Records regulations: The Federal rules restrict any use of the information to criminally investigate or prosecute any alcohol or drug abuse patient.[facility] SystemIn the event this information is protected by the Federal Confidentiality of Alcohol and Drug Abuse Patient Records regulations: The Federal rules restrict any use of the information to criminally investigate or prosecute any alcohol or drug abuse patient.[facility] SystemIn the event this information is protected by the Federal Confidentiality of Alcohol and Drug Abuse Patient Records regulations: The Federal rules restrict any use of the information to criminally investigate or prosecute any alcohol or drug abuse patient.[facility] SystemIn the event this information is protected by the Federal Confidentiality of Alcohol and Drug Abuse Patient Records regulations: The Federal rules restrict any use of the information to criminally investigate or prosecute any alcohol or drug abuse patient.[facility] SystemIn the event this information is protected by the Federal Confidentiality of Alcohol and Drug Abuse Patient Records regulations: The Federal rules restrict any use of the information to criminally investigate or prosecute any alcohol or drug abuse patient.[facility] SystemIn the event this information is protected by the Federal Confidentiality of Alcohol and Drug Abuse Patient Records regulations: The Federal rules restrict any use of the information to criminally investigate or prosecute any alcohol or drug abuse patient.[facility] SystemIn the event this information is protected by the Federal Confidentiality of Alcohol and Drug Abuse Patient Records regulations: The Federal rules restrict any use of the information to criminally investigate or prosecute any alcohol or drug abuse patient.[facility] SystemIn the event this information is protected by the Federal Confidentiality of Alcohol and Drug Abuse Patient Records regulations: The Federal rules restrict any use of the information to criminally investigate or prosecute any alcohol or drug abuse patient.[facility] SystemIn the event this information is protected by the Federal Confidentiality of Alcohol and Drug Abuse Patient Records regulations: The Federal rules restrict any use of the information to criminally investigate or prosecute any alcohol or drug abuse patient.[facility] SystemIn the event this information is protected by the Federal Confidentiality of Alcohol and Drug Abuse Patient Records regulations: The Federal rules restrict any use of the information to criminally investigate or prosecute any alcohol or drug abuse patient.[facility] SystemIn the event this information is protected by the Federal Confidentiality of Alcohol and Drug Abuse Patient Records regulations: The Federal rules restrict any use of the information to criminally investigate or prosecute any alcohol or drug abuse patient.[facility] SystemIn the event this information is protected by the Federal Confidentiality of Alcohol and Drug Abuse Patient Records regulations: The Federal rules restrict any use of the information to criminally investigate or prosecute any alcohol or drug abuse patient.[facility] SystemIn the event this information is protected by the Federal Confidentiality of Alcohol and Drug Abuse Patient Records regulations: The Federal rules restrict any use of the information to criminally investigate or prosecute any alcohol or drug abuse patient.[facility] SystemIn the event this information is protected by the Federal Confidentiality of Alcohol and Drug Abuse Patient Records regulations: The Federal rules restrict any use of the information to criminally investigate or prosecute any alcohol or drug abuse patient.[facility] SystemIn the event this information is protected by the Federal Confidentiality of Alcohol and Drug Abuse Patient Records regulations: The Federal rules restrict any use of the information to criminally investigate or prosecute any alcohol or drug abuse patient.[facility] SystemIn the event this information is protected by the Federal Confidentiality of Alcohol and Drug Abuse Patient Records regulations: The Federal rules restrict any use of the information to criminally investigate or prosecute any alcohol or drug abuse patient.[facility] SystemIn the event this information is protected by the Federal Confidentiality of Alcohol and Drug Abuse Patient Records regulations: The Federal rules restrict any use of the information to criminally investigate or prosecute any alcohol or drug abuse patient.[facility] SystemIn the event this information is protected by the Federal Confidentiality of Alcohol and Drug Abuse Patient Records regulations: The Federal rules restrict any use of the information to criminally investigate or prosecute any alcohol or drug abuse patient.[facility] SystemIn the event this information is protected by the Federal Confidentiality of Alcohol and Drug Abuse Patient Records regulations: The Federal rules restrict any use of the information to criminally investigate or prosecute any alcohol or drug abuse patient.[facility] SystemIn the event this information is protected by the Federal Confidentiality of Alcohol and Drug Abuse Patient Records regulations: The Federal rules restrict any use of the information to criminally investigate or prosecute any alcohol or drug abuse patient.[facility] SystemIn the event this information is protected by the Federal Confidentiality of Alcohol and Drug Abuse Patient Records regulations: The Federal rules restrict any use of the information to criminally investigate or prosecute any alcohol or drug abuse patient.[facility] SystemIn the event this information is protected by the Federal Confidentiality of Alcohol and Drug Abuse Patient Records regulations: The Federal rules restrict any use of the information to criminally investigate or prosecute any alcohol or drug abuse patient.[facility] SystemIn the event this information is protected by the Federal Confidentiality of Alcohol and Drug Abuse Patient Records regulations: The Federal rules restrict any use of the information to criminally investigate or prosecute any alcohol or drug abuse patient.[facility] SystemIn the event this information is protected by the Federal Confidentiality of Alcohol and Drug Abuse Patient Records regulations: The Federal rules restrict any use of the information to criminally investigate or prosecute any alcohol or drug abuse patient.[facility] SystemIn the event this information is protected by the Federal Confidentiality of Alcohol and Drug Abuse Patient Records regulations: The Federal rules restrict any use of the information to criminally investigate or prosecute any alcohol or drug abuse patient.[facility] SystemIn the event this information is protected by the Federal Confidentiality of Alcohol and Drug Abuse Patient Records regulations: The Federal rules restrict any use of the information to criminally investigate or prosecute any alcohol or drug abuse patient.[facility] SystemIn the event this information is protected by the Federal Confidentiality of Alcohol and Drug Abuse Patient Records regulations: The Federal rules restrict any use of the information to criminally investigate or prosecute any alcohol or drug abuse patient.[facility] SystemIn the event this information is protected by the Federal Confidentiality of Alcohol and Drug Abuse Patient Records regulations: The Federal rules restrict any use of the information to criminally investigate or prosecute any alcohol or drug abuse patient.[facility] SystemIn the event this information is protected by the Federal Confidentiality of Alcohol and Drug Abuse Patient Records regulations: The Federal rules restrict any use of the information to criminally investigate or prosecute any alcohol or drug abuse patient.[facility] SystemIn the event this information is protected by the Federal Confidentiality of Alcohol and Drug Abuse Patient Records regulations: The Federal rules restrict any use of the information to criminally investigate or prosecute any alcohol or drug abuse patient.[facility] SystemIn the event this information is protected by the Federal Confidentiality of Alcohol and Drug Abuse Patient Records regulations: The Federal rules restrict any use of the information to criminally investigate or prosecute any alcohol or drug abuse patient.[facility] SystemIn the event this information is protected by the Federal Confidentiality of Alcohol and Drug Abuse Patient Records regulations: The Federal rules restrict any use of the information to criminally investigate or prosecute any alcohol or drug abuse patient.[facility] SystemIn the event this information is protected by the Federal Confidentiality of Alcohol and Drug Abuse Patient Records regulations: The Federal rules restrict any use of the information to criminally investigate or prosecute any alcohol or drug abuse patient.[facility] SystemIn the event this information is protected by the Federal Confidentiality of Alcohol and Drug Abuse Patient Records regulations: The Federal rules restrict any use of the information to criminally investigate or prosecute any alcohol or drug abuse patient.[facility] SystemIn the event this information is protected by the Federal Confidentiality of Alcohol and Drug Abuse Patient Records regulations: The Federal rules restrict any use of the information to criminally investigate or prosecute any alcohol or drug abuse patient.[facility] SystemIn the event this information is protected by the Federal Confidentiality of Alcohol and Drug Abuse Patient Records regulations: The Federal rules restrict any use of the information to criminally investigate or prosecute any alcohol or drug abuse patient.[facility] SystemIn the event this information is protected by the Federal Confidentiality of Alcohol and Drug Abuse Patient Records regulations: The Federal rules restrict any use of the information to criminally investigate or prosecute any alcohol or drug abuse patient.[facility] SystemIn the event this information is protected by the Federal Confidentiality of Alcohol and Drug Abuse Patient Records regulations: The Federal rules restrict any use of the information to criminally investigate or prosecute any alcohol or drug abuse patient.[facility] SystemIn the event this information is protected by the Federal Confidentiality of Alcohol and Drug Abuse Patient Records regulations: The Federal rules restrict any use of the information to criminally investigate or prosecute any alcohol or drug abuse patient.[facility] SystemIn the event this information is protected by the Federal Confidentiality of Alcohol and Drug Abuse Patient Records regulations: The Federal rules restrict any use of the information to criminally investigate or prosecute any alcohol or drug abuse patient.[facility] SystemIn the event this information is protected by the Federal Confidentiality of Alcohol and Drug Abuse Patient Records regulations: The Federal rules restrict any use of the information to criminally investigate or prosecute any alcohol or drug abuse patient.[facility] SystemIn the event this information is protected by the Federal Confidentiality of Alcohol and Drug Abuse Patient Records regulations: The Federal rules restrict any use of the information to criminally investigate or prosecute any alcohol or drug abuse patient.[facility] SystemIn the event this information is protected by the Federal Confidentiality of Alcohol and Drug Abuse Patient Records regulations: The Federal rules restrict any use of the information to criminally investigate or prosecute any alcohol or drug abuse patient.[facility] SystemIn the event this information is protected by the Federal Confidentiality of Alcohol and Drug Abuse Patient Records regulations: The Federal rules restrict any use of the information to criminally investigate or prosecute any alcohol or drug abuse patient.[facility] SystemIn the event this information is protected by the Federal Confidentiality of Alcohol and Drug Abuse Patient Records regulations: The Federal rules restrict any use of the information to criminally investigate or prosecute any alcohol or drug abuse patient.[facility] the event this information is protected by the Federal Confidentiality of Alcohol and Drug Abuse Patient Records regulations: The Federal rules restrict any use of the information to criminally investigate or prosecute any alcohol or drug abuse patient.[facility] SystemIn the event this information is protected by the Federal Confidentiality of Alcohol and Drug Abuse Patient Records regulations: The Federal rules restrict any use of the information to criminally investigate or prosecute any alcohol or drug abuse patient.[facility] SystemIn the event this information is protected by the Federal Confidentiality of Alcohol and Drug Abuse Patient Records regulations: The Federal rules restrict any use of the information to criminally investigate or prosecute any alcohol or drug abuse patient.[facility] SystemIn the event this information is protected by the Federal Confidentiality of Alcohol and Drug Abuse Patient Records regulations: The Federal rules restrict any use of the information to criminally investigate or prosecute any alcohol or drug abuse patient.[facility] SystemIn the event this information is protected by the Federal Confidentiality of Alcohol and Drug Abuse Patient Records regulations: The Federal rules restrict any use of the information to criminally investigate or prosecute any alcohol or drug abuse patient.[facility] SystemIn the event this information is protected by the Federal Confidentiality of Alcohol and Drug Abuse Patient Records regulations: The Federal rules restrict any use of the information to criminally investigate or prosecute any alcohol or drug abuse patient.[facility] SystemIn the event this information is protected by the Federal Confidentiality of Alcohol and Drug Abuse Patient Records regulations: The Federal rules restrict any use of the information to criminally investigate or prosecute any alcohol or drug abuse patient.[facility] SystemIn the event this information is protected by the Federal Confidentiality of Alcohol and Drug Abuse Patient Records regulations: The Federal rules restrict any use of the information to criminally investigate or prosecute any alcohol or drug abuse patient.[facility] SystemIn the event this information is protected by the Federal Confidentiality of Alcohol and Drug Abuse Patient Records regulations: The Federal rules restrict any use of the information to criminally investigate or prosecute any alcohol or drug abuse patient.[facility] SystemIn the event this information is protected by the Federal Confidentiality of Alcohol and Drug Abuse Patient Records regulations: The Federal rules restrict any use of the information to criminally investigate or prosecute any alcohol or drug abuse patient.[facility] SystemIn the event this information is protected by the Federal Confidentiality of Alcohol and Drug Abuse Patient Records regulations: The Federal rules restrict any use of the information to criminally investigate or prosecute any alcohol or drug abuse patient.[facility] SystemIn the event this information is protected by the Federal Confidentiality of Alcohol and Drug Abuse Patient Records regulations: The Federal rules restrict any use of the information to criminally investigate or prosecute any alcohol or drug abuse patient.[facility] SystemIn the event this information is protected by the Federal Confidentiality of Alcohol and Drug Abuse Patient Records regulations: The Federal rules restrict any use of the information to criminally investigate or prosecute any alcohol or drug abuse patient.[facility] SystemIn the event this information is protected by the Federal Confidentiality of Alcohol and Drug Abuse Patient Records regulations: The Federal rules restrict any use of the information to criminally investigate or prosecute any alcohol or drug abuse patient.[facility] SystemIn the event this information is protected by the Federal Confidentiality of Alcohol and Drug Abuse Patient Records regulations: The Federal rules restrict any use of the information to criminally investigate or prosecute any alcohol or drug abuse patient.[facility] SystemIn the event this information is protected by the Federal Confidentiality of Alcohol and Drug Abuse Patient Records regulations: The Federal rules restrict any use of the information to criminally investigate or prosecute any alcohol or drug abuse patient.[facility] SystemIn the event this information is protected by the Federal Confidentiality of Alcohol and Drug Abuse Patient Records regulations: The Federal rules restrict any use of the information to criminally investigate or prosecute any alcohol or drug abuse patient.[facility] SystemIn the event this information is protected by the Federal Confidentiality of Alcohol and Drug Abuse Patient Records regulations: The Federal rules restrict any use of the information to criminally investigate or prosecute any alcohol or drug abuse patient.[facility] SystemIn the event this information is protected by the Federal Confidentiality of Alcohol and Drug Abuse Patient Records regulations: The Federal rules restrict any use of the information to criminally investigate or prosecute any alcohol or drug abuse patient.[facility] SystemIn the event this information is protected by the Federal Confidentiality of Alcohol and Drug Abuse Patient Records regulations: The Federal rules restrict any use of the information to criminally investigate or prosecute any alcohol or drug abuse patient.[facility] SystemIn the event this information is protected by the Federal Confidentiality of Alcohol and Drug Abuse Patient Records regulations: The Federal rules restrict any use of the information to criminally investigate or prosecute any alcohol or drug abuse patient.[facility] SystemIn the event this information is protected by the Federal Confidentiality of Alcohol and Drug Abuse Patient Records regulations: The Federal rules restrict any use of the information to criminally investigate or prosecute any alcohol or drug abuse patient.[facility] SystemIn the event this information is protected by the Federal Confidentiality of Alcohol and Drug Abuse Patient Records regulations: The Federal rules restrict any use of the information to criminally investigate or prosecute any alcohol or drug abuse patient.[facility] SystemIn the event this information is protected by the Federal Confidentiality of Alcohol and Drug Abuse Patient Records regulations: The Federal rules restrict any use of the information to criminally investigate or prosecute any alcohol or drug abuse patient.[facility] SystemIn the event this information is protected by the Federal Confidentiality of Alcohol and Drug Abuse Patient Records regulations: The Federal rules restrict any use of the information to criminally investigate or prosecute any alcohol or drug abuse patient.[facility] SystemIn the event this information is protected by the Federal Confidentiality of Alcohol and Drug Abuse Patient Records regulations: The Federal rules restrict any use of the information to criminally investigate or prosecute any alcohol or drug abuse patient.[facility] SystemIn the event this information is protected by the Federal Confidentiality of Alcohol and Drug Abuse Patient Records regulations: The Federal rules restrict any use of the information to criminally investigate or prosecute any alcohol or drug abuse patient.[facility] SystemIn the event this information is protected by the Federal Confidentiality of Alcohol and Drug Abuse Patient Records regulations: The Federal rules restrict any use of the information to criminally investigate or prosecute any alcohol or drug abuse patient.[facility] SystemIn the event this information is protected by the Federal Confidentiality of Alcohol and Drug Abuse Patient Records regulations: The Federal rules restrict any use of the information to criminally investigate or prosecute any alcohol or drug abuse patient.[facility] SystemIn the event this information is protected by the Federal Confidentiality of Alcohol and Drug Abuse Patient Records regulations: The Federal rules restrict any use of the information to criminally investigate or prosecute any alcohol or drug abuse patient.[facility] SystemIn the event this information is protected by the Federal Confidentiality of Alcohol and Drug Abuse Patient Records regulations: The Federal rules restrict any use of the information to criminally investigate or prosecute any alcohol or drug abuse patient.[facility] SystemIn the event this information is protected by the Federal Confidentiality of Alcohol and Drug Abuse Patient Records regulations: The Federal rules restrict any use of the information to criminally investigate or prosecute any alcohol or drug abuse patient.[facility] SystemIn the event this information is protected by the Federal Confidentiality of Alcohol and Drug Abuse Patient Records regulations: The Federal rules restrict any use of the information to criminally investigate or prosecute any alcohol or drug abuse patient.[facility] SystemIn the event this information is protected by the Federal Confidentiality of Alcohol and Drug Abuse Patient Records regulations: The Federal rules restrict any use of the information to criminally investigate or prosecute any alcohol or drug abuse patient.[facility] SystemIn the event this information is protected by the Federal Confidentiality of Alcohol and Drug Abuse Patient Records regulations: The Federal rules restrict any use of the information to criminally investigate or prosecute any alcohol or drug abuse patient.[facility] SystemIn the event this information is protected by the Federal Confidentiality of Alcohol and Drug Abuse Patient Records regulations: The Federal rules restrict any use of the information to criminally investigate or prosecute any alcohol or drug abuse patient.[facility] SystemIn the event this information is protected by the Federal Confidentiality of Alcohol and Drug Abuse Patient Records regulations: The Federal rules restrict any use of the information to criminally investigate or prosecute any alcohol or drug abuse patient.[facility] SystemIn the event this information is protected by the Federal Confidentiality of Alcohol and Drug Abuse Patient Records regulations: The Federal rules restrict any use of the information to criminally investigate or prosecute any alcohol or drug abuse patient.[facility] SystemIn the event this information is protected by the Federal Confidentiality of Alcohol and Drug Abuse Patient Records regulations: The Federal rules restrict any use of the information to criminally investigate or prosecute any alcohol or drug abuse patient.[facility] SystemIn the event this information is protected by the Federal Confidentiality of Alcohol and Drug Abuse Patient Records regulations: The Federal rules restrict any use of the information to criminally investigate or prosecute any alcohol or drug abuse patient.[facility] SystemIn the event this information is protected by the Federal Confidentiality of Alcohol and Drug Abuse Patient Records regulations: The Federal rules restrict any use of the information to criminally investigate or prosecute any alcohol or drug abuse patient.[facility] SystemIn the event this information is protected by the Federal Confidentiality of Alcohol and Drug Abuse Patient Records regulations: The Federal rules restrict any use of the information to criminally investigate or prosecute any alcohol or drug abuse patient.[facility] SystemIn the event this information is protected by the Federal Confidentiality of Alcohol and Drug Abuse Patient Records regulations: The Federal rules restrict any use of the information to criminally investigate or prosecute any alcohol or drug abuse patient.[facility] SystemIn the event this information is protected by the Federal Confidentiality of Alcohol and Drug Abuse Patient Records regulations: The Federal rules restrict any use of the information to criminally investigate or prosecute any alcohol or drug abuse patient.[facility] SystemIn the event this information is protected by the Federal Confidentiality of Alcohol and Drug Abuse Patient Records regulations: The Federal rules restrict any use of the information to criminally investigate or prosecute any alcohol or drug abuse patient.[facility] SystemIn the event this information is protected by the Federal Confidentiality of Alcohol and Drug Abuse Patient Records regulations: The Federal rules restrict any use of the information to criminally investigate or prosecute any alcohol or drug abuse patient.[facility] SystemIn the event this information is protected by the Federal Confidentiality of Alcohol and Drug Abuse Patient Records regulations: The Federal rules restrict any use of the information to criminally investigate or prosecute any alcohol or drug abuse patient.[facility] Reason for Visit (unrecogniz ed section and content) Reason Comments Physical Therapy PT Discharge Specialty Diagnoses / Procedures Referred By Contac t Referred To Contact [facility] Diagnoses Fracture of humeral head, right, closed, initial encounter Procedures CONSULT TO PHYSICAL THERAPY PHYSICAL THERAPY EVALUATION HIGH COMPLEX 45 MINS Jennifer Dickens PA-C [address] [place] [address] [facility] [place] [address] [place] [address] Referral ID Status Reason Start Date Expiration Date Visits Requested Visits Authorized [id number] Authorized Auto-Generat ed Referral 10/20/2023 10/19/2024 99 99 Reason Comments Physical Therapy Reason Comments Physical Therapy PT Progress Note Reason Comments PT Discharge Specialty Diagnoses / Procedures Referred By Contac t Referred To Contact PHYSICAL THERAPY Diagnoses Chronic pain of both knees Balance problem Procedures CONSULT TO PHYSICAL THERAPY PHYSICAL THERAPY EVALUATION HIGH COMPLEX 45 MINS Hilda, VIVI Schwab.POINT OF CARE TECHNICIAN [address] [place] [address] [facility] [address] [place] [address] Referral ID Status Reason Start Date Expiration Date Visits Requested Visits Authorized [id number] Authorized Auto-Generat ed Referral 10/20/2022 10/19/2023 99 99 Reason Comments PT Progress Note Physical Therapy Reason Onset Date Comments Refill Request 01/10/2022 Reason Comments Vaginal Problem Specialty Diagnoses / Procedures Referred By Contac t Referred To Contact DIRECTOR OF CORPORATE MARKETING Diagnoses Labial pain external vaginal lumps, labial pain Procedures OFFICE/OUTPATIENT ESTABLISHED HIGH MDM 40-54 MIN EST WHI PATIENT Self Mira Joseph MD [address] [facility] [place] [place] [address] Referral ID Status Reason Start Date Expiration Date V isits Requested Visits Authorized [id number] Closed Financial Clearance Required - OON Payor Patient Cleared INN/[facility] Payor Auth Obtained 01/21/2022 10/19/2022 1 1 Reason Comments Follow Up had u/s at 1pm. Specialty Diagnoses / Procedures Referred By Contjuanpablo t Referred To Contact DIRECTOR OF CORPORATE MARKETING Diagnoses 2 week follow up Procedures EST [facility] PATIENT Mira Joseph MD [address] [facility] [place] [place] [address] Mira Joseph MD [address] [facility] [place] [place] [address] Referral ID Status Reason Start Date Expiration Date Visits Re quested Visits Authorized [id number] Closed 02/08/2022 10/19/2022 1 1 Reason Comments [...] Diagnoses bp issues Procedures 4C EST Self Deneen Garcia MD [address] [place] [address] Referral ID Status Reason Start Date Expiration Date Visits Re quested Visits Authorized [id number] Closed 04/10/2022 10/19/2022 1 1 Reason Comments [...] Reason Comments Recheck 3 month follow up Reason Onset Date Comments Population Health Navigation Outreach 11/25/2023 [facility] AW[facility] Reason Comments Follow Up Estrace cream Reason Comments Patient Question Reason Comments PT Eval Reason Comments New Fracture Reason Onset Date Comments Refill Request 02/04/2024 Reason Onset Date Comments Refill Request 02/18/2024 Reason Comments Sore Throat With fatigue x 2 wee ks & swollen lymph node LEFT side of neck Reason Comments Recheck Follow up, lump on n loida Reason Comments Recheck 6 month Follow up, c ellulitis Reason Comments requesting order for US Reason Comments Question Requesting copy of US order Reason Comments Diplopia Follow Up Reason Comments Patient Update Reason Comments Recheck cellulitis on right shoulder treated with Augmentinand sinus infection ER F/U x 2 trips to ER as s he was feeling worse and that is why she went back to ER 2nd time Reason Comments ER F/U [facility] 04/26/24 at [facility] Reason Comments Orders Reason Comments Radiology US Specialty Diagnoses / Procedures Referred By Peg t Referred To Contact US IMAGING Diagnoses Enlarged lymph node in neck Procedures US HEAD/NECK SOFT TISSUE OTHER US SOFT TISSUE HEAD & NECK REAL TIME IMGE BORA PodlogarSugey APRN.POINT OF CARE TECHNICIAN [address] [facility] [place] [address] [place] [address] Referral ID Status Reason Start Date Expiration Date V isits Requested Visits Authorized [id number] Closed Auto-Generate d Referral 04/14/2024 04/30/2025 1 1 Reason Comments Forms Reason Onset Date Comments Population Health Navigation Outreach 05/19/2024 [facility] [place] Reason Comments Geriatrics Reason Comments Refraction Reason Comments Full Body Skin Check Reason Onset Date Comments Refill Request 06/30/2024 Reason Onset Date Comments Population Health Navigation Outreach 07/21/2024 [facility], Care gaps, HCC, [place] [facility]SA Reason Comments F/U 6 Month Reason Onset Date Comments Refill Request 02/16/2025 Reason Onset Date Comments Refill Request 02/22/2025 Reason Comments F/U 3 Month Reason Onset Date Comments Refill Request 04/15/2025 Reason Comments Knee Pain Reason Comments Medication Problem Consult Reason Comments F/U 3 Month Care Teams (unrecognized sec tion and content) Arrt Technologist Relationship Specialty Start Date End Date Deneen Garcia MD [address] [place] [address] PCP - General Internal Medicine 11/18/17 Arrt Technologist Relationship Specialty Start Date End Date Deneen Garcia MD [address] [place] [address] PCP - General Internal Medicine 11/18/17 Arrt Technologist Relationship Specialty Start Date End Date Deneen Garcia MD [address] [place] [address] PCP - General Internal Medicine 11/18/17 Arrt Technologist Relationship Specialty Start Date End Date Deneen Garcia MD [address] [place] [address] PCP - General Internal Medicine 11/18/17 Arrt Technologist Relationship Specialty Start Date End Date Deneen Garcia MD [address] [place] [address] PCP - General Internal Medicine 11/18/17 Arrt Technologist Relationship Specialty Start Date End Date Deneen Garcia MD [address] [place] [address] PCP - General Internal Medicine 11/18/17 Arrt Technologist Relationship Specialty Start Date End Date Deneen Garcia MD [address] [place] [address] PCP - General Internal Medicine 11/18/17 Arrt Technologist Relationship Specialty Start Date End Date Deneen Garcia MD [address] [facility] [place] [place] [address] PCP - General Internal Medicine 11/18/17 Arrt Technologist Relationship Specialty Start Date End Date Deneen Garcia MD [address] [place] [address] PCP - General Internal Medicine 11/18/17 Arrt Technologist Relationship Specialty Start Date End Date Deneen Garcia MD [address] [place] [address] PCP - General Internal Medicine 11/18/17 Arrt Technologist Relationship Specialty Start Date End Date Deneen Garcia MD [address] [facility] [place] [address] PCP - General Internal Medicine 11/18/17 Arrt Technologist Relationship Specialty Start Date End Date Deneen Garcia MD [address] [place] [address] PCP - General Internal Medicine 11/18/17 Arrt Technologist Relationship Specialty Start Date End Date Deneen Garcia MD [address] [facility] [place] [address] PCP - General Internal Medicine 11/18/17 Arrt Technologist Relationship Specialty Start Date End Date Deneen Garcia MD [address] [facility] [place] [address] PCP - General Internal Medicine 11/18/17 Arrt Technologist Relationship Specialty Start Date End Date Deneen Garcia MD [address] [place] [address] PCP - General Internal Medicine 11/18/17 Arrt Technologist Relationship Specialty Start Date End Date Deneen Garcia MD [address] [facility] [place] [address] PCP - General Internal Medicine 11/18/17 Arrt Technologist Relationship Specialty Start Date End Date Deneen Garcia MD [address] [facility] [place] [address] PCP - General Internal Medicine 11/18/17 Arrt Technologist Relationship Specialty Start Date End Date Deneen Garcia MD [address] [facility] [place] [address] PCP - General Internal Medicine 11/18/17 Arrt Technologist Relationship Specialty Start Date End Date Deneen Garcia MD [address] [facility] [place] [address] PCP - General Internal Medicine 11/18/17 Arrt Technologist Relationship Specialty Start Date End Date Deneen Garcia MD [address] [facility] [place] [address] PCP - General Internal Medicine 11/18/17 Arrt Technologist Relationship Specialty Start Date End Date Deneen Garcia MD [address] [facility] [place] [address] PCP - General Internal Medicine 11/18/17 Arrt Technologist Relationship Specialty Start Date End Date Deneen Garcia MD [address] [facility] [place] [address] PCP - General Internal Medicine 11/18/17 Arrt Technologist Relationship Specialty Start Date End Date Deneen Garcia MD [address] [facility] [place] [address] PCP - General Internal Medicine 11/18/17 Arrt Technologist Relationship Specialty Start Date End Date Deneen Garcia MD [address] [facility] [place] [address] PCP - General Internal Medicine 11/18/17 Arrt Technologist Relationship Specialty Start Date End Date Deneen Garcia MD [address] [place] [address] PCP - General Internal Medicine 11/18/17 Arrt Technologist Relationship Specialty Start Date End Date Deneen Garcia MD [address] [place] [address] PCP - General Internal Medicine 11/18/17 Arrt Technologist Relationship Specialty Start Date End Date Deneen Garcia MD [address] [place] [address] PCP - General Internal Medicine 11/18/17 Arrt Technologist Relationship Specialty Start Date End Date Deneen Garcia MD [address] [place] [address] PCP - General Internal Medicine 11/18/17 Arrt Technologist Relationship Specialty Start Date End Date Deneen Garcia MD [address] [place] [address] PCP - General Internal Medicine 11/18/17 Arrt Technologist Relationship Specialty Start Date End Date Deneen Garcia MD [address] [place] [address] PCP - General Internal Medicine 11/18/17 Team Status: Active Member Role Status Dates SUMAN MAXWELL Family Provider Active Dr. Deneen Garcia MD Primary Care Provider Active Team Status: Inactive Member Role Status Dates Dr. Deneen Garcia MD Primary Care Provider Active Antonio Cline MD Emergency Provider Active Arrt Technologist Relationship Specialty Start Date End Date Deneen Garcia MD [address] [place] [address] PCP - General Internal Medicine 11/18/17 Arrt Technologist Relationship Specialty Start Date End Date Deneen Garcia MD [address] [place] [address] PCP - General Internal Medicine 11/18/17 Arrt Technologist Relationship Specialty Start Date End Date Deneen Garcia MD [address] [facility] [place] [address] PCP - General Internal Medicine 11/18/17 Arrt Technologist Relationship Specialty Start Date End Date Deneen Garcia MD [address] [facility] [place] [address] PCP - General Internal Medicine 11/18/17 Arrt Technologist Relationship Specialty Start Date End Date Deneen Garcia MD [address] [facility] [place] [address] PCP - General Internal Medicine 11/18/17 Arrt Technologist Relationship Specialty Start Date End Date Deneen Garcia MD [address] [facility] [place] [address] PCP - General Internal Medicine 11/18/17 Arrt Technologist Relationship Specialty Start Date End Date Deneen Garcia MD [address] [facility] [place] [address] PCP - General Internal Medicine 11/18/17 Arrt Technologist Relationship Specialty Start Date End Date Deneen Garcia MD [address] [facility] [place] [address] PCP - General Internal Medicine 11/18/17 Arrt Technologist Relationship Specialty Start Date End Date Deneen Garcia MD [address] [facility] [place] [address] PCP - General Internal Medicine 11/18/17 Arrt Technologist Relationship Specialty Start Date End Date Deneen Garcia MD [address] [facility] [place] [address] PCP - General Internal Medicine 11/18/17 Arrt Technologist Relationship Specialty Start Date End Date Deneen Garcia MD [address] [facility] [place] [address] PCP - General Internal Medicine 11/18/17 Arrt Technologist Relationship Specialty Start Date End Date Deneen Garcia MD [address] [facility] [place] [address] PCP - General Internal Medicine 11/18/17 Arrt Technologist Relationship Specialty Start Date End Date Deneen Garcia MD [address] [facility] [place] [address] PCP - General Internal Medicine 11/18/17 Arrt Technologist Relationship Specialty Start Date End Date Deneen Garcia MD [address] [facility] [place] [address] PCP - General Internal Medicine 11/18/17 Arrt Technologist Relationship Specialty Start Date End Date Deneen Garcia MD [address] [facility] [place] [address] PCP - General Internal Medicine 11/18/17 Arrt Technologist Relationship Specialty Start Date End Date Deneen Garcia MD [address] [facility] [place] [address] PCP - General Internal Medicine 11/18/17 Arrt Technologist Relationship Specialty Start Date End Date Deneen Garcia MD [address] [facility] [place] [address] PCP - General Internal Medicine 11/18/17 Arrt Technologist Relationship Specialty Start Date End Date Deneen Garcia MD [address] [place] [address] PCP - General Internal Medicine 11/18/17 Arrt Technologist Relationship Specialty Start Date End Date Deneen Garcia MD [address] [place] [address] PCP - General Internal Medicine 11/18/17 Arrt Technologist Relationship Specialty Start Date End Date Deneen Garcia MD [address] [place] [address] PCP - General Internal Medicine 11/18/17 Arrt Technologist Relationship Specialty Start Date End Date Deneen Garcia MD [address] [place] [address] PCP - General Internal Medicine 11/18/17 Arrt Technologist Relationship Specialty Start Date End Date Deneen Garcia MD [address] [place] [address] PCP - General Internal Medicine 11/18/17 Arrt Technologist Relationship Specialty Start Date End Date Deneen Garcia MD [address] [place] [address] PCP - General Internal Medicine 11/18/17 Arrt Technologist Relationship Specialty Start Date End Date Deneen Garcia MD [address] [place] [address] PCP - General Internal Medicine 11/18/17 Evelyn Hawthorne PA-C [address] [place] [address] Practice Architect Family Medicine 09/26/24 Josselin Stevens APRN.POINT OF CARE TECHNICIAN [address] [facility] [place] [address] Practice Architect Internal Medicine 09/26/24 Enma Lynn PA-C [address] [place] [address] Practice Architect Family Medicine 09/26/24 Arrt Technologist Relationship Specialty Start Date End Date Deneen Garcia MD [address] [facility] [place] [address] PCP - General Internal Medicine 11/18/17 Evelyn Hawthorne PA-C [address] [place] [address] Practice Architect Family Medicine 09/26/24 Josselin Stevens APRN.POINT OF CARE TECHNICIAN [address] [place] [address] Practice Architect Internal Medicine 09/26/24 Enma Lynn PA-C [address] [place] [address] Practice Architect Family Medicine 09/26/24 Arrt Technologist Relationship Specialty Start Date End Date Deneen Garcia MD [address] [facility] [place] [address] PCP - General Internal Medicine 11/18/17 Evelyn Hawthorne PA-C [address] [place] [address] Practice Architect Family Medicine 09/26/24 Josselin Stevens APRN.POINT OF CARE TECHNICIAN [address] [place] [address] Practice Architect Internal Medicine 09/26/24 Enma Lynn PA-C [address] [facility] [place] [address] Practice Architect Family Medicine 09/26/24 Arrt Technologist Relationship Specialty Start Date End Date Deneen Garcia MD [address] [place] [address] PCP - General Internal Medicine 11/18/17 Evelyn Hawthorne PA-C [address] [place] [address] Practice Architect Family Medicine 09/26/24 Josselin Stevens APRN.POINT OF CARE TECHNICIAN [address] [place] [address] Practice Architect Internal Medicine 09/26/24 Enma Lynn PA-C [address] [place] [address] Practice Architect Family Medicine 09/26/24 Arrt Technologist Relationship Specialty Start Date End Date Deneen Garcia MD [address] [place] [address] PCP - General Internal Medicine 11/18/17 Josselin Stevens APRN.POINT OF CARE TECHNICIAN [address] [place] [address] Practice Architect Internal Medicine 09/26/24 Arrt Technologist Relationship Specialty Start Date End Date Deneen Garcia MD [address] [place] [address] PCP - General Internal Medicine 11/18/17 Josselin Stevens APRN.POINT OF CARE TECHNICIAN [address] [place] [address] Practice Architect Internal Medicine 09/26/24 Arrt Technologist Relationship Specialty Start Date End Date Deneen Garcia MD [address] [facility] [place] [address] PCP - General Internal Medicine 11/18/17 Josselin Stevens APRN.POINT OF CARE TECHNICIAN [address] [place] [address] Practice Architect Internal Medicine 09/26/24 Arrt Technologist Relationship Specialty Start Date End Date Deneen Garcia MD [address] [facility] [place] [address] PCP - General Internal Medicine 11/18/17 Josselin Stevens APRN.POINT OF CARE TECHNICIAN [address] [place] [address] Practice Architect Internal Medicine 09/26/24 Arrt Technologist Relationship Specialty Start Date End Date Deneen Garcia MD [address] [facility] [place] [address] PCP - General Internal Medicine 11/18/17 Josselin Stevens APRN.POINT OF CARE TECHNICIAN [address] [place] [address] Practice Architect Internal Medicine 09/26/24 Arrt Technologist Relationship Specialty Start Date End Date Deneen Garcia MD [address] [facility] [place] [address] PCP - General Internal Medicine 11/18/17 Josselin Stevens APRN.POINT OF CARE TECHNICIAN [address] [facility] [place] [address] Practice Architect Internal Medicine 09/26/24 Arrt Technologist Relationship Specialty Start Date End Date Deneen Garcia MD [address] [facility] [place] [address] PCP - General Internal Medicine 11/18/17 Josselin Stevens APRN.POINT OF CARE TECHNICIAN [address] [facility] [place] [address] Practice Architect Internal Medicine 09/26/24 Arrt Technologist Relationship Specialty Start Date End Date Deneen Garcia MD [address] [facility] [place] [address] PCP - General Internal Medicine 11/18/17 Josselin Stevens APRN.POINT OF CARE TECHNICIAN [address] [place] [address] Practice Architect Internal Medicine 09/26/24 Arrt Technologist Relationship Specialty Start Date End Date Deneen Garcia MD [address] [facility] [place] [address] PCP - General Internal Medicine 11/18/17 Josselin Stevens APRN.POINT OF CARE TECHNICIAN [address] [place] [address] Practice Architect Internal Medicine 09/26/24 Arrt Technologist Relationship Specialty Start Date End Date Deneen Garcia MD [address] [facility] [place] [address] PCP - General Internal Medicine 11/18/17 Josselin Stevens APRN.POINT OF CARE TECHNICIAN [address] [place] [address] Practice Architect Internal Medicine 09/26/24 Team Status: Active Member Role/Relationship Status Dates Dr. Deneen Garcia MD Primary Care Provider Active Team Status: Active Member Role/Relationship Status Dates Dr. Deneen Garcia MD Primary Care Provider Active Start: June 28, 2025 JOSSELIN STEVENS DISPATCHER [employer] Attending Provider Active Start : June 28, 2025 JOSSELIN STEVENS [employer] Referring Provider Active Start : June 28, 2025 Team Status: Inactive Member Role/Relationship Status Dates Dr. Deneen Garcia MD Primary Care Provider Active Start: June 30, 2025 End: June 30, 2025 Dr. Deneen Garcia MD Referring Provider Active Start: June 30, 2025 End: June 30, 2025 Dr. Juan Manuel Park DO Attending Provider Active Start: June 30, 2025 End: June 30, 2025 Arrt Technologist Relationship Specialty Start Date End Date Deneen Garcia MD [address] [place] [address] PCP - General Internal Medicine 11/18/17 Josselin Stevens APRN.POINT OF CARE TECHNICIAN [address] [place] [address] [facility] Internal Medicine 09/26/24 Arrt Technologist Relationship Specialty Start Date End Date Deneen Garcia MD [address] [place] [address] PCP - General Internal Medicine 11/18/17 Josselin Stevens APRN.POINT OF CARE TECHNICIAN [address] [place], [place] [address] [facility] Internal Medicine 09/26/24 Team Status: Active Member Role/Relationship Status Dates Dr. Deneen Garcia MD Primary care physician Active Team Status: Inactive Member Role/Relationship Status Dates Dr. Deneen Garcia MD Primary care physician Active Start: June 30, 2025 End: June 30, 2025 Dr. Deneen Garcia MD Referring Provider Active Start: June 30, 2025 End: June 30, 2025 Dr. Juan Manuel Park DO Attending physician Active Start: June 30, 2025 End: June 30, 2025 Team Status: Inactive Member Role/Relationship Status Dates Dr. Deneen Garcia MD Primary care physician Active Start: July 08, 2025 End: July 08, 2025 EZEQUIEL NAPIER Attending physician Active Star t: July 08, 2025 End: July 08, 2025 EZEQUIEL NAPIER Referring Provider Active Start : July 08, 2025 End: July 08, 2025 Goals (unrecognized section and content) Goals may be documented in a n alternate sectionGoals may be documented in an alternate sectionGoals may be documented in an alternate section FOR RECORDS PERTAINING TO PATIENTS WHO ARE [...] BE BASED ON THE PRIMARY CLINICAL RECORDS. [employer] provides no warranty or guarantee of the accuracy or completeness of information in this document.
[2025-10-14 16:36] LABS: Anion Gap 8 (7-18); BUN 44 mg/dL (4-19); BUN/Creat Ratio 52.5 RATIO (10-20); Calcium,Total 9.2 mg/dL (7.6-11.0); Carbon Dioxide 22.1 mmol/L (20.0-29.0); Chloride 107 mmol/L (96-106); Estimated Creatinine Clearance 68.86 ml/min (50-250); Glucose 123 mg/dL (70-99); Lipase 14 U/L (13-75); Potassium 4.8 mmol/L (3.5-5.1)
[2025-10-14 16:49] LABS: Prothrombin Time (Protime)PT. 13.7 SECONDS (11.7-14.9)
[2025-10-14 16:50] LABS: Partial Thromboplast Time 28.4 Seconds (24.1-36.2)
[2025-10-14 16:52] VITALS: PULSE 90; RESP 14; O2SAT 95
[2025-10-14 18:09] VITALS: BP 106/70; PULSE 81; RESP 16; TEMP 36.6; O2SAT 99
== END 2025-10-14 18:10 | disposition home or self-care (01) ==
PROVIDERS: Emergency Provider Emergency Medicine; PCP Internal Medicine; Visit Provider Emergency Medicine
DX: K92.2 Gastrointestinal hemorrhage, unspecified (principal); R19.7 Diarrhea, unspecified; D64.9 Anemia, unspecified; Z79.899 Other long term (current) drug therapy
CPT/HCPCS: 74177; 80048; 82274; 83690; 85025; 85610; 85730; 93005; 99284; Q9967; A4216

== ENCOUNTER → 2025-10-17 | Outpatient (CLI) | payer MEDICARE, SELFPAY ==
[2025-10-17 11:31] LABS: Hematocrit 32.7 % (37-47); Hemoglobin 10.7 g/dL (12.0-15.0); Immature Granulocytes Count 0.060 X10^3/uL (0.0-0.0); Mean Corp Hgb Conc 32.7 g/dL (32-36); Mean Corpuscular Volume 91.6 fL (81-99); Mean Platelet Vol. 10.7 fl (6.2-12.0); NRBC Flagged by Analyzer 0 % (0-5); Platelet Count 391 K/mm3 (150-450); RBC Distribution Width CV 13.0 % (11.6-14.6); RBC Distribution Width SD 43.5 fl (35.1-43.9); Red Blood Count 3.57 M/mm3 (4.2-5.4); White Blood Count 12.3 K/mm3 (4.4-11.0)
== END | disposition home or self-care (01) ==
PROVIDERS: PCP Internal Medicine; Referring Provider Emergency Medicine; Visit Provider Emergency Medicine
DX: K92.2 Gastrointestinal hemorrhage, unspecified (principal)
CPT/HCPCS: 36415; 85025